=== PATIENT | female | born 1955 | race Caucasian/White ===

== ENCOUNTER → 2017-09-02 16:13 | Outpatient (CLI) | payer MEDICARE, SELFPAY ==
[2017-08-03 10:47] VITALS: BP 120/62; BMI 27.6
--- NOTE | 2017-09-02 16:18 | RAD_ITS ---
STUDY: X-RAY - CERVICAL SPINE REASON FOR EXAM: Female, 62 years old. Neck pain TECHNIQUE: 6 view(s) of the cervical spine were obtained. COMPARISON: Prior comparison studies are not available for review at this time. FINDINGS: Normal anterior atlantoaxial articulation. Normal odontoid process. There is straightening of the normal cervical lordosis. Normal vertebral bodies. There is degenerative disc disease with disc space narrowing and anterior osteophyte formation at C5-6 and C6-7, with bilateral foraminal stenosis. The soft tissue structures are unremarkable. RAD/Cerv Spine 4 or 5 Views IMPRESSION: C5-6 C6-7 degenerative disease Electronically Signed: Jeremiah Solis MD, FACR at 8:02 EST , Service support ,
== END ==
PROVIDERS: Family Provider Family Medicine; PCP Family Medicine; Visit Provider Family Medicine
DX: S16.1XXA Strain of muscle, fascia and tendon at neck level, initial encounter (principal)
CPT/HCPCS: 72050

== ENCOUNTER → 2017-09-24 11:22 | Outpatient (CLI) | payer MEDICARE, SELFPAY ==
--- NOTE | 2017-09-24 11:29 | RAD_ITS ---
STUDY: X-RAY - PELVIS AND LEFT HIP REASON FOR EXAM: Female, 62 years old. PATIENT FELL IN JUNE. PAIN IN LEFT HIP AND GROIN AREA TECHNIQUE: Radiological exam, hip, unilateral, with pelvis when performed; 2 or 3 views. COMPARISON: None. FINDINGS: There is a non-specific bowel gas pattern. Normal visualized soft tissue structures. Normal bilateral iliac wings, sacroiliac joints and visualized sacrum. Normal bilateral superior and inferior pubic rami. Normal pubic symphysis. Normal bilateral ischial tuberosities. Normal visualized femoral head. Normal acetabulum. Normal hip joint. RAD/Hip 2-3 Views with Pelvis IMPRESSION: Normal x-ray examination of the pelvis and hip. Electronically Signed: Kip Odell MD at 17:15 EST , Service support ,
== END ==
PROVIDERS: Family Provider Family Medicine; PCP Family Medicine; Visit Provider Nurse Practitioner Family
DX: M25.551 Pain in right hip (principal)
CPT/HCPCS: 73502

== ENCOUNTER → 2017-10-07 12:06 | Outpatient (CLI) | payer MEDICARE, SELFPAY ==
--- NOTE | 2017-10-07 12:09 | RAD_ITS ---
STUDY: X-RAY - RIGHT WRIST REASON FOR EXAM: Female, 62 years old. Pain following a recent fall. TECHNIQUE: 3 view(s) of the wrist were obtained. COMPARISON: None. FINDINGS: Normal visualized distal radius and ulna. Normal radiocarpal articulation. Normal distal radioulnar articulation. Normal carpal bones. Normal carpal articulations. Normal carpometacarpal articulation of the thumb. Normal second through fifth carpometacarpal articulations. Normal visualized metacarpal bones. Soft tissue swelling. RAD/Wrist min 3 Views IMPRESSION: Soft tissue swelling. Electronically Signed: Dimitri Ordonez MD at 12:35 EDT Tel [phone], Service support ,
== END ==
PROVIDERS: Family Provider Family Medicine; PCP Family Medicine; Visit Provider Family Medicine
DX: M25.531 Pain in right wrist (principal)
CPT/HCPCS: 73110

== ENCOUNTER 2017-11-18 12:00 | Outpatient (RCR) | payer MEDICARE, SELFPAY ==
--- NOTE | 2017-11-13 16:44 | HP.OTEVAL_ITS ---
Patient's Visit Information ALISHA AG is a 62 year old F, referred to Occupational Therapy by Luis Huffman, with a diagnosis of right wrist contusion. Date of Evaluation: 11/13/17 Occupational Therapist: Penny Waite, OTR/Jack, CHT - Subjective Subjective: Pt states she was roller skating- 4 weeks ago and fell-pt states she did have an x-ray and no fx was reported- dx of a deep bone brusing- pt is right handed- and states she has pain with using her right hand with BADLS and IADLS - - Pain right wrist/hand 2 Pain Intensity Range: 0, 3, 4 - ROM Wrist: right 45/50 left 55/70 - Strength Absorption And Adsorption Engineer: right 20# left 70# Lateral Pinch: right 4# left 8# Tripod Pinch: right 4# left 10# - Sensation Sensation Comments: tingling in hand/fingers from neck - Hand/Wrist Evaluation Total Score of Pain & Functional Sections: 36 - Goals Goal:: pt will demo a increase in right machine assembler for puller over stregnth to 40# or greater to increase pts ind with BADLS and IADLs by d/c Goal:: pt will demo a functional ROM of right wrist eual to left with no c/o pain at end range for pt to perform BADls and IADLS at ind. level by d/c Goal:: pt will report no pain greater than 1/10 with functional use of pts right hand with BADLs and IADLS by d/c - Rehabilitation General Assessment: pt demo a decrease in right wrist ROM and strength that limits pts ind. with BADSL and IADLS. Pt demo a need for skilled OTR/L, CHT services to rehab pt to her PLOF. Rehabilitation Potential: Good - Anticipated Interventions Anticipated Interventions: Strengthening - Visit Plan Frequency: 1-2x /Week Duration: 4 Months General Plan: OT services 1-2x week for 4 weeks- therapy will provide services to decrease pts pain and increase pts strength for a increase ind. with pts BADls and IADLS. TEXT: Thank you for the opportunity to evaluate your patient. For Medicare and Medicare HMO plans, please review the plan of care and approve it. It will need to be FAXED BACK to us at [phone] for Medicare purposes. Please let me know if there are questions or concerns regarding this plan of care. Physician Signature: Date:
--- NOTE | 2017-11-14 09:50 | HP.OTEVAL ---
Patient's Visit Information ALISHA AG is a 62 year old F, referred to Occupational Therapy by Luis Huffman, with a diagnosis of right wrist contusion. Date of Evaluation: 11/13/17 Occupational Therapist: Penny Waite, OTR/Jack, CHT - Subjective Subjective: Pt states she was roller skating- 4 weeks ago and fell-pt states she did have an x-ray and no fx was reported- dx of a deep bone brusing- pt is right handed- and states she has pain with using her right hand with BADLS and IADLS - - Pain right wrist/hand 2 Pain Intensity Range: 0, 3, 4 - ROM Wrist: right 45/50 left 55/70 - Strength Blueprint Reader: right 20# left 70# Lateral Pinch: right 4# left 8# Tripod Pinch: right 4# left 10# - Sensation Sensation Comments: tingling in hand/fingers from neck - Hand/Wrist Evaluation Total Score of Pain & Functional Sections: 36 - Goals Goal:: pt will demo a increase in right senior marketing associate stregnth to 40# or greater to increase pts ind with BADLS and IADLs by d/c Goal:: pt will demo a functional ROM of right wrist eual to left with no c/o pain at end range for pt to perform BADls and IADLS at ind. level by d/c Goal:: pt will report no pain greater than 1/10 with functional use of pts right hand with BADLs and IADLS by d/c - Rehabilitation General Assessment: pt demo a decrease in right wrist ROM and strength that limits pts ind. with BADSL and IADLS. Pt demo a need for skilled OTR/L, CHT services to rehab pt to her PLOF. Rehabilitation Potential: Good - Anticipated Interventions Anticipated Interventions: Strengthening - Visit Plan Frequency: 1-2x /Week Duration: 4 Months General Plan: OT services 1-2x week for 4 weeks- therapy will provide services to decrease pts pain and increase pts strength for a increase ind. with pts BADls and IADLS. TEXT: Thank you for the opportunity to evaluate your patient. For Medicare and Medicare HMO plans, please review the plan of care and approve it. It will need to be FAXED BACK to us at [phone] for Medicare purposes. Please let me know if there are questions or concerns regarding this plan of care. Physician Signature: Date:
--- NOTE | 2017-11-29 09:47 | HP.OTDCSUM_ITS ---
HP - OT D/C Summary It has been my pleasure to treat ALISHA AG under orders from Luis Huffman, for the diagnosis of right wrist contusion for a total of 5 visit(s). Please see the following information for a summary of their discharge status. pt has progressed with with OT and reports she is ind. with all BADLs and IADLs. pt reports very little pain and is happy with her progress. - Overall Improvement % Improvement: 95 - Objective Objective/Function: pt demo a right associate store manager of 70# this was increase from 20#. right later pinch 12# a increase from 4#. tripod pinch increase to 8# from 4#. right wrist ROM 55/65 pt demo right wrist ROM WNL and reports she is ind. with BADLs and IADLS. - Goals Patient Goals: Regain Strength, Decrease Pain, Use Hand/Wrist/Arm Normally Again Goal:: pt will demo a increase in right associate store manager stregnth to 40# or greater to increase pts ind with BADLS and IADLs by d/c Goal:: pt will demo a functional ROM of right wrist eual to left with no c/o pain at end range for pt to perform BADls and IADLS at ind. level by d/c Goal:: pt will report no pain greater than 1/10 with functional use of pts right hand with BADLs and IADLS by d/c - Plan Plan: D/C - D/C Information Discharge Comments: Pt was seen for 5 OT visits- therapy services US and PRE- pt advise on Adj. he style of skate to decrease speed- pt demo understanding- pt reports ind. with all BADLS and IADLS. pt has met functional goals and is D/ C at this time. If there are questions or concerns regarding this patient's occupational therapy , please fell free to call me at [phone]. Thank you for the referral of this patient. Sincerely, Penny Waite, OTR/L, CHT
--- OUTSIDE RECORDS SUMMARY | 2018-01-16 12:08 | XMS RPT_ITS ---
:1955 Author Organization OHIP Support Name Relationship Address Phone D Unavailable Unavailable Unavailable ESTELITA, RENEE Unavailable [address] + [place] [address] D Unavailable Unavailable Unavailable ESTELITA, RENEE Unavailable [address] + [place] [address] D Unavailable Unavailable Unavailable ESTELITA, RENEE Unavailable [address] + [place] [address] D Unavailable Unavailable Unavailable ESTELITA, RENEE Unavailable [address] + [place] [address] D Unavailable Unavailable Unavailable ESTELITA, RENEE Unavailable [address] + [place] [address] D Unavailable Unavailable Unavailable ESTELITA, RENEE Unavailable [address] + [place] [address] D Unavailable Unavailable Unavailable ESTELITA, RENEE Unavailable [address] + [place] [address] D Unavailable Unavailable Unavailable ESTELITA, RENEE Unavailable [address] + [place] [address] D Unavailable Unavailable Unavailable ESTELITA, RENEE Unavailable [address] + [place] [address] D Unavailable Unavailable Unavailable ESTELITA, RENEE Unavailable [address] + [place] [address] D Unavailable Unavailable Unavailable ESTELITA, RENEE Unavailable [address] + [place] [address] D Unavailable Unavailable Unavailable ESTELITA, RENEE Unavailable [address] + [place] [address] D Unavailable Unavailable Unavailable ESTELITA, RENEE Unavailable [address] + [place] [address] D Unavailable Unavailable Unavailable RENEE CAPONE Unavailable [address] + [place] [address] Care Team Providers Name Role Phone Malys, Mariana Attending Unavailable Malys, Mariana Primary Care Unavailable Malys, Mariana Attending Unavailable Malys, Mariana Primary Care Unavailable Derrick Anand Attending Unavailable Malys, Mariana Primary Care Unavailable Derrick Anand Attending Unavailable Malys, Mariana Primary Care Unavailable Reinaldo Gonzalez Attending Unavailable Malys, Mariana Referring Unavailable Malys, Mariana Primary Care Unavailable Juan Manuel Hassan Attending Unavailable Malys, Mariana Referring Unavailable Malys, Mariana Primary Care Unavailable Malys, Mariana Attending Unavailable Malys, Mariana Primary Care Unavailable Malys, Mariana Referring Unavailable Malys, Mariana Attending Unavailable Malys, Mariana Referring Unavailable Malys, Mariana Primary Care Unavailable Prebish, Mariana SAP BW DEVELOPER-C Attending Unavailable Prebish, Mariana SAP BW DEVELOPER-C Referring Unavailable Malys, Mariana Primary Care Unavailable Derrick Anand Attending Unavailable Derrick Anand Referring Unavailable Malys, Mariana Primary Care Unavailable Reinaldo Gonzalez Attending Unavailable Malys, Mariana Referring Unavailable Malys, Mariana Primary Care Unavailable Glory Deal Attending Unavailable Glory Deal Referring Unavailable Malys, Mariana Primary Care Unavailable Prebish, Mariana SAP BW DEVELOPER-C Attending Unavailable Prebish, Mariana SAP BW DEVELOPER-C Referring Unavailable Malys, Mariana Primary Care Unavailable Luis Huffman Attending Unavailable Luis Huffman Referring Unavailable Malys, Mariana Primary Care Unavailable PROBLEMS PROBLEMS DATE TYPE CONDITION / CODE ATTENDING STATUS SOURCE 12/13/2017 Unknown M25.551 - Pain in Prebish, Mariana Active [facility] right hip / [facility] M25.551(ICD-10) Hospital Repository 12/13/2017 Unknown M25.552 - Pain in Prebish, Mariana Active [facility] left hip / [employer] [facility]EL[facility] M25.552(ICD-10) Hospital Repository 12/13/2017 Unknown M16.11 - Unilateral Prebish, Mariana Active [facility] primary [employer] BW DEVELOPER[facility]C Community osteoarthritis, Hospital right hip / Repository M16.11(ICD-10) 12/13/2017 Unknown M16.12 - Unilateral Prebish, Mariana Active [facility] primary [employer] BW DEVELOPER-C Community osteoarthritis, left Hospital hip / M16.12(ICD-10) Repository 11/19/2017 Unknown N95.0 - MiedelKatharineh Active [facility] Postmenopausal Community bleeding / Hospital N95.0(ICD-10) Repository 09/02/2017 Unknown S16.1XXA - Strain of Mariana James Active [facility] muscle, fascia and Community tendon at neck Hospital level, initial Repository encounter / S16.1XXA(ICD-10) 07/31/2017 Unknown R42 - Dizziness and Reinaldo Gonzalez Active [facility] giddiness / Community R42(ICD-10) Hospital Repository 07/31/2017 Unknown H81.10 - Benign Reinaldo Gonzalez Active [facility] paroxysmal vertigo, Community unspecified ear / Hospital H81.10(ICD-10) Repository 05/31/2017 Unknown OTH DISRD OF BONE Cheng, Derrick Active [facility] DENSITY AND Community STRUCTURE, MULTIPLE Hospital SITES / Repository M85.89(ICD-10) 05/28/2017 Unknown PAIN IN LEFT ChengDerrick Active [facility] FINGER(S) / Community M79.645(ICD-10) Hospital Repository 05/28/2017 Unknown ENCNTR SCREEN Mariana James Active [facility] MAMMOGRAM FOR [facility] MALIGNANT NEOPLASM Hospital BREAST / Repository Z12.31(ICD-10) 05/28/2017 Unknown DYSURIA / MalysMariana Active [facility] R30.0(ICD-10) [facility] Repository PROCEDURES PROCEDURES No Procedure Records FoundRESULTS RESULTS LOWER EXT JOINT ONLY Observed: 12/13/2017 Status: F Source: [place] (ROUTINE) 9:40 AM [facility]ITAL[facility] [address] [place], [place] [address]Livlj Ext Joint Only (Routine)MR#: [id number] Acct: [id number]: ALISHA AG Rep #: [id number]: 1955 F 62 From: Salvatore Neal MDPCP: Mariana James DO Status: REG CLIStudy: Lower Ext Joint Only (Routine) Date of Exam: 12/13/17Exam# [id number] Ordering Dr: Mariana Chau SAP BW DEVELOPER-CSTUDY: MRI LEFT HIPREASON FOR EXAM: Hip, groin and buttock pain for several months, nospecific injury.TECHNIQUE: Standardized fat and water weighted pulse sequences wereobtained in all 3 orthogonal planes.COMPARISON: Radiographs 09/24/2017. FINDINGS:There is mild chondral thinning of the anterior superior left hip(proton-density sagittal image 10). Normal acetabulum. Normal labrum.Normal femoral head. Normal femoral neck and intratrochanteric region.There is mild persistence of red marrow in the left proximal femoraldiaphysis (inversion recovery coronal images 16, 17).Normal gluteus minimus, medius and iliopsoas tendons and distal insertions.There is mild left iliopsoas bursitis (T2 axial images 14, 15; inversionrecovery coronal image 21).Normal superior and inferior pubic rami. There are mild degenerativechanges of the pubic symphysis. Normal ischial tuberosity. Normal originof the hamstring tendons.Normal visualized iliac wing, sacroiliac joint, and sacral ala.Normal visualized soft tissue structures of the pelvis. ORDER #: [id number] MRI/Lower Ext Joint Only (Routine)IMPRESSION:Mild left hip arthrosis.Mild left iliopsoas bursitis.Electronically Signed:Salvatore Neal MD at 13:04 EDTTel , Service support , HE: Mariana Chau; Mariana James DO Cnc Programmer:Signed LOWER EXT JOINT ONLY Observed: 12/13/2017 Status: F Source: [place] (ROUTINE) 9:39 AM [facility] REPOSITORY [facility] [address] [place], [place] [address]Ealqr Ext Joint Only (Routine)MR#: [id number] Acct: [id number]: ALISHA AG Rep #: [id number]: 1955 F 62 From: Salvatore Neal MDPCP: Mariana James DO Status: REG CLIStudy: Lower Ext Joint Only (Routine) Date of Exam: 12/13/17Exam# [id number] Ordering Dr: Mariana Chau SAP BW DEVELOPER-CSTUDY: MRI RIGHT HIPREASON FOR EXAM: Right hip pain for several years.TECHNIQUE: Standardized fat and water weighted pulse sequences wereobtained in all 3 orthogonal planes.COMPARISON: Radiographs 09/24/2017. FINDINGS:There is mild chondral thinning of the right hip joint (proton-densitysagittal image 9). Normal acetabulum. Normal labrum. Normal femoral head.Normal femoral neck and intratrochanteric region.Normal gluteus minimus, medius and iliopsoas tendons and distal insertions.There is no trochanteric, iliopsoas or iliopectineal bursitis.Normal superior and inferior pubic rami. There are degenerative changes ofthe pubic symphysis. Normal ischial tuberosity. Normal origin of thehamstring tendons.Normal visualized iliac wing , sacroiliac joint, and sacral ala.Normal visualized soft tissue structures of the pelvis. ORDER #: [id number] MRI/Lower Ext Joint Only (Routine)IMPRESSION:Mild right hip arthrosis.Electronically Signed:Salvatore Neal MD at 13:03 EDTTel , Service support , DF: Mariana Chau; Mariana James DO Cnc Programmer:Signed OT D/C SUMMARY Observed: 11/29/2017 Status: F Source: [place] 9:49 AM [facility] RE[facility]ITORY [facility]Occup[facility] [facility] [address] [place] [address] [phone] [phone] FaxREHABILITATION SERVICESDISCHARGE SUMMARYMR#: [id number] Acct : [id number]: ALISHA AG Rep #: [id number]: 1955 62 From: Penny Waite OTR/L, CHTReferring : Luis Huffman DO Status: PRE RCREval Date: Discharge Date:HP - OT D/C SummaryIt has been my pleasure to treat ALISHA AG under orders from Luis Huffman, for thediagnosis of right wrist contusion for a total of 5 visit(s).Please see the following information for a summary of their discharge status.pt has progressed with with OT and reports she is ind. with all BADLs and IADLs. pt reportsvery little pain and is happy with her progress.- Overall Improvement% Improvement: 95- ObjectiveObjective/Function: pt demo a right basting puller of 70# this was increase from 20#. right later pinch12# a increase from 4#. tripod pinch increase to 8# from 4#. right wrist ROM 55/65 pt demoright wrist ROM WNL and reports she is ind. with BADLs and IADLS.- GoalsPatient Goals: Regain Strength, Decrease Pain, Use Hand/Wrist/Arm Normally AgainGoal:: pt will demo a increase in right basting puller stregnth to 40# or greater to increase pts indwith BADLS and IADLs by d/cGoal:: pt will demo a functional ROM of right wrist eual to left with no c/ o pain at end rangefor pt to perform BADls and IADLS at ind. level by d/cGoal:: pt will report no pain greater than 1/10 with functional use of pts right hand withBADLs and IADLS by d/c- PlanPlan: D/C- D/C InformationDischarge Comments: Pt was seen for 5 OT visits- therapy services US and PRE- pt advise on Adj.he style of skate to decrease speed- pt demo understanding- pt reports ind. with all BADLS andIADLS. pt has met functional goals and is D/C at this time.If there are questions or concerns regarding this patient's occupational therapy, please fellfree to call me at . Thank you for the referral of this patient.Sincerely,Penny Waite, OTR/L, CHT<Electronically signed by Penny Waite OTR/L, CHT> 11/29/17 0949CC : Mariana James DO; Luis Huffman DO DT: 11/29/17MKSigned TRANSVAGINAL Observed: 11/19/2017 Status: F Source: [place] NON- 8:19 AM [facility] REPOSITORY [facility]IPIm[facility] [address] [place] [address]Ypqchuwuvdgm Non-MR#: [id number] Acct: [id number]: ALISHA AG Rep #: [id number]: 1955 F 62 From: Dean Chaudhry MDPCP: Mariana James DO Status: REG CLIStudy: Transvaginal Non- Date of Exam: 11/19/17Exam# [id number] Ordering Dr: Glory Deal MDSTUDY: ULTRASOUND TRANSVAGINALCLINICAL: Female, 62 years old. Postmenopausal bleeding, intermittent [id number].TECHNIQUE: Transabdominal and transvaginal.COMPARISON: None. FINDINGS: Normal uterine size measuring 6.0 x 3.6 x 2.2 cm. There are no myometrialmasses.Normal endometrial thickness measuring 3.0 mm. There are no endometrialmasses, and there is no fluid in the endometrial cavity.Normal uterine cervix.Normal right ovary, measuring 1.1 x 0.9 x 0.7 cm. There are multiplefollicles without a dominant cyst.Normal left ovary, measuring 1.8 x 1.0 x 0.8 cm. There are multiplefollicles without a dominant cyst.There is no free fluid in the pelvis.Polycystic ovary disease: No. ORDER #: [id number] US/ Transvaginal Non-IMPRESSION:Unremarkable exam.Electronically Signed:Dean Chaudhry MD at 9:55 EDTT , Service support , CX: Glory Deal MD; Mariana James DO Cnc Programmer:Signed PELVIC (NON ) Observed: 11/19/2017 Status: F Source: [place] 8:19 AM [facility] REPOSITORY [facility] [address] [place] [address]Cniubx (Non )MR#: [id number] Acct: [id number]: ALISHA AG Rep #: [id number]: 1955 F 62 From: Dean Chaudhry MDPCP: Mariana James DO Status: REG CLIStudy: Pelvic (Non ) Date of Exam: 11/19/17Exam# [id number] Ordering Dr: Glory Deal MDSTUDY: ULTRASOUND TRANSVAGINALCLINICAL: Female, 62 years old. Postmenopausal bleeding, intermittent x3qhgdlc.TECHNIQUE: Transabdominal and transvaginal.COMPARISON: None. FINDINGS: Normal uterine size measuring 6.0 x 3.6 x 2.2 cm. There are no myometrialmasses.Normal endometrial thickness measuring 3.0 mm. There are no endometrialmasses, and there is no fluid in the endometrial cavity.Normal uterine cervix.Normal right ovary, measuring 1.1 x 0.9 x 0.7 cm. There are multiplefollicles without a dominant cyst.Normal left ovary, measuring 1.8 x 1.0 x 0.8 cm. There are multiplefollicles without a dominant cyst.There is no free fluid in the pelvis.Polycystic ovary disease: No. ORDER #: [id number] US/Pelvic ( Non )IMPRESSION:Unremarkable exam.Electronically Signed:Dean Chaudhry MD at 9:55 [facility] , Service support , EU: Glory Deal MD; Mariana James DO Cnc Programmer:Signed OT GENERAL EVALUATION Observed: 11/14/2017 Status: F Source: [place] 9:51 AM [facility] REPOSITORY [facility] [address], [place] [phone] [phone] FaxREHABILITATION SERVICESINITIAL EVALUATIONMR#: [id number] Acct: [id number]: ALISHA AG Rep #: [id number]: 1955 62 From: Penny Waite OTR/L, CHTReferring Dr.: Luis Huffman DO Status: PRE RCRInsurance: [facility]IN NETWORK Eval Date:SELF PAY INSURANCEPatient's Visit InformationMERSHIRIN AG is a 62 year old F, referred to Occupational Therapy by Luis Huffman, with adiagnosis of right wrist contusion.Date of Evaluation: 11/13/17Occupational Therapist: Penny Waite, DONNAR/L, CHT- SubjectiveSubjective: Pt states she was roller skating- 4 weeks ago and fell-pt states she did have anx-ray and no fx was reported- dx of a deep bone brusing- pt is right handed- and states she haspain with using her right hand with BADLS and IADLS - - Pain right wrist/lzjf8Pgyd Intensity Range: 0, 3, 4- ROMWrist: right 45/50 left 55/70- StrengthGrip: right 20# left 70#Lateral Pinch: right 4# left 8#Tripod Pinch: right 4# left 10#- SensationSensation Comments: tingling in hand/fingers from neck- Hand/Wrist EvaluationTotal Score of Pain AND Functional Sections: 36- GoalsGoal:: pt will demo a increase in right basting puller stregnth to 40# or greater to increase pts indwith BADLS and IADLs by d/cGoal:: pt will demo a functional ROM of right wrist eual to left with no c/o pain at end rangefor pt to perform BADls and IADLS at ind. level by d/cGoal:: pt will report no pain greater than 1/10 with functional use of pts right hand withBADLs and IADLS by d/c- RehabilitationGeneral Assessment: pt demo a decrease in right wrist ROM and strength that limits pts ind.with BADSL and IADLS. Pt demo a need for skilled OTR/L, CHT services to rehab pt to her PLOF.Rehabilitation Potential: Good- Anticipated InterventionsAnticipated Interventions: Strengthening- Visit PlanFrequency: 1- 2x /WeekDuration: 4 MonthsGeneral Plan: OT services 1-2x week for 4 weeks- therapy will provide services to decrease ptspain and increase pts strength for a increase ind. with pts BADls and IADLS.TEXT:Thank you for the opportunity to evaluate your patient.For Medicare and Medicare HMO plans, please review the plan of care and approve it.It will need to be FAXED BACK to us at [phone] for Medicare purposes.Please let me know if there are questions or concerns regarding this plan of care.Physician Signature: Date: &lt ;Electronically signed by Penny Waite OTR/NANNETTE Santiago> 11/14/17 0951CC: Mariana James DO; Luis Huffman DO DT: 11/14/17MKSignedFor Medicare only, by signing this I certify the plan of care. Physicians Signature Date OT GENERAL EVALUATION Observed: 11/14/2017 Status: F Source: [place] 9:34 AM [facility] REPOSITORY [facility] [address] [facility]. [address] [place] [address] [phone] [phone] FaxREHABILITATION SERVICESINITIAL EVALUATIONMR#: [id number] Acct: [id number]: ALISHA AG Rep #: [id number]: 1955 62 From: Penny Waite OTR/L, CHTReferring Dr.: Luis Huffman DO Status: PRE RCRInsurance: [facility] *IN NETWORK Eval Date:SELF PAY INSURANCEPatient's Visit InformationALISHA AG is a 62 year old F, referred to Occupational Therapy by Luis Huffman, with adiagnosis of right wrist contusion.Date of Evaluation: 11/13/17Occupational Therapist: Penny Waite, OTR/L, CHT- SubjectiveSubjective: Pt states she was roller skating- 4 weeks ago and fell-pt states she did have anx-ray and no fx was reported- dx of a deep bone brusing- pt is right handed- and states she haspain with using her right hand with BADLS and IADLS - - Pain right wrist/bddu6Atpx Intensity Range: 0, 3, 4- ROMWrist: right 45/50 left 55/70- StrengthGrip: right 20# left 70#Lateral Pinch: right 4# left 8#Tripod Pinch: right 4# left 10#- SensationSensation Comments: tingling in hand/fingers from neck- Hand/Wrist EvaluationTotal Score of Pain AND Functional Sections: 36- GoalsGoal:: pt will demo a increase in right basting puller stregnth to 40# or greater to increase pts indwith BADLS and IADLs by d/cGoal:: pt will demo a functional ROM of right wrist eual to left with no c/o pain at end rangefor pt to perform BADls and IADLS at ind. level by d/cGoal:: pt will report no pain greater than 1/10 with functional use of pts right hand withBADLs and IADLS by d/c- RehabilitationGeneral Assessment: pt demo a decrease in right wrist ROM and strength that limits pts ind.with BADSL and IADLS. Pt demo a need for skilled OTR/L, CHT services to rehab pt to her PLOF.Rehabilitation Potential: Good- Anticipated InterventionsAnticipated Interventions: Strengthening- Visit PlanFrequency: 1- 2x /WeekDuration: 4 MonthsGeneral Plan: OT services 1-2x week for 4 weeks- therapy will provide services to decrease ptspain and increase pts strength for a increase ind. with pts BADls and IADLS.TEXT:Thank you for the opportunity to evaluate your patient.For Medicare and Medicare HMO plans, please review the plan of care and approve it.It will need to be FAXED BACK to us at [phone] for Medicare purposes.Please let me know if there are questions or concerns regarding this plan of care.Physician Signature: Date: &lt ;Electronically signed by Penny GARCÍA/NANNETTE Santiago> 11/14/17 0934CC: Mariana James DO; Luis Huffman DO DT: 11/13/17MKSignedFor Medicare only, by signing this I certify the plan of care. Physicians Signature Date URGENT CARE VISIT Observed: 10/30/2017 Status: F Source: [place] REPORT 1:09 PM [facility] REPOSITORY Now [address] [phone] VISITDate of Service: 10/30/17MR#: [id number] Acct: [id number]: ALISHA AG Rep #: [id number]: 1955 Provider: Reinaldo Tyson/Sex: 62/F [facility] [place].NOWStatus: Signed with AddendaADDENDUM by Reinaldo XIONG on 10/30/17 at 1308Addendum entered and electronically signed by TYRESE Klein 10/30/17 13:08:Patient request, dextromethorphan was discontinued and was prescribed benzonatate to take asneeded for cough.HPIDetails: ALISHA AG, is a 62 F who presents to the office today for10/30/17 1309 <Electronically signed by Reinaldo XIONG>Date Reinaldo Gonzalez PAcc: *SignedIntakeVital Signs10/30/17 Height 5 ft 1.5 inIntakeVisit Reasons: SINUS INFECTIONChief Complaint: Sinus drainage, coughIs patient in pain?: NoAllergieschocolate flavor Allergy (Verified 10/30/17 12:42)Unknownamoxicillin [Amoxicillin] Adverse Reaction (Verified 10/30/17 12:42)Otherbupropion HCl [ From Wellbutrin] Adverse Reaction (Verified 10/30/17 12:42)Othercosmetics Allergy ( Uncoded 10/30/17 12:42)Unknownnuts Allergy (Uncoded 10/30/17 12:42)UnknownMedicationsLansoprazole [Prevacid] 30 mg PO DAILY 02/06/14 [ History Confirmed 10/30/17]Montelukast [Singulair] 10 mg PO DAILY 02/06/14 [History Confirmed 10/30/17]Sumatriptan Succinate [Imitrex] 100 mg PO .X1 PRN 02/06/14 [History Confirmed 10/30/17]Venlafaxine HCl [Effexor] 75 mg PO BID 02/06/14 [History Confirmed 10/30/17]acetaminophen 325 mg tablet 500 mg PO Q6H PRN 07/31/17 [History Confirmed 10/30/17]ascorbic acid (vitamin C) 1,000 mg tablet 1 g PO Q6H 07/31/17 [History Confirmed 10/30/17]cholecalciferol (vitamin D3) 1,000 unit capsule 1,000 unit PO ONCE 07/31/17 [History Haexsdbnu57/04/18]docusate sodium 50 mg capsule 50 mg PO QDAY 07/31/17 [History Confirmed 10/30/17]ferrous sulfate 325 mg (65 mg iron) tablet 325 mg PO TID tab 07/31/17 [History Sgmczyfgj07/04/18]garlic tablet 300 mg PO QDAY 07/31/17 [History Confirmed 10/30/17]ibuprofen 200 mg tablet 200 mg PO ONCE 10/13 [History Confirmed 10/30/17]lutein extract 15 mg-zeaxanthin extract 0.7 mg capsule cap PO 07/31/17 [History Yzqwjauhc60/04/18]meclizine 25 mg tablet 25 mg PO BID PRN #14 tab 07/31/17 [Rx Confirmed 10/30/17]vitamin A 8,000 unit capsule 8,000 unit PO QDAY 07/31/17 [History Confirmed 10/30/17]vitamin B complex tablet 1 tab PO QDAY 07/31/17 [History Confirmed 10/30/17]vitamin E 200 unit capsule 200 unit PO QDAY 07/31/17 [History Confirmed 10/30/17]zinc acetate 25 mg (zinc) capsule 25 mg PO QDAY 07/31/17 [History Confirmed 10/30/17]dextromethorphan polistirex ER 30 mg/5 mL oral susp ext.release 12hr 60 mg PO Q12H PRN #89 ml10/30/17 [Rx Confirmed 10/30/17]PFSHMedical History Arthritis (Acute)Asthma (Acute)Back pain (Acute)Difficulty balancing (Acute)Hay fever (Acute)Incontinence (Acute)Knee pain (Acute)child (Acute)Surgical HistoryHx of knee surgery (Acute)S/P breast lumpectomy (Acute) Social HistorySmoking Status: Never smokeralcohol intake: neverHPIHPIChief Complaint : Sinus drainage, coughDetails: ALISHA AG, is a 62 F who presents to the office today for initial evaluation 5day history of postnasal drip and cough. She notes no complaints of fever, chills, sweats,rash, chest pain/shortness of breath, facial pressure. She is a non-smoker. She notes noother members in her household with similar signs or symptoms. She notes no other associatedsymptoms, no other alleviating or aggravating factors.ROSConstConstitutional: No excessive sweating, abnormal sleep pattern, chills, fever(s), night sweatsor body acheEyesEyes: No change in visionENTENT: Positive for post nasal drip and sinus pressure;no ear pain, ear discharge, ear pressure, hearing loss, sinus pain, nasal congestion or sorethroatRespRespiratory: Positive for cough Cough: Yes non-productive;no chest congestionCardioCardiology: No excessive sweating, chest pain at rest, chest pain with exertion, shortness ofbreath, dyspnea on exertion, irregular heart rhythm, generalized swelling or leg pain withexertionGastroGI: No abdominal pain, change in stool character or change in bowel habitsMuscMusculoskeletal: No joint pain, back pain, limited range of motion, tingling or numbnessSkinSkin: No rashNeuroNeurology: No tingling or numbnessPsychPsychiatric: No abnormal sleep patternEndoEndocrine : No excessive sweating, change in body appearance, cold intolerance or heatintoleranceAller/ImmAllergy/Immunologic: No food intoleranceHema/LympHematologic/Lymphatic: No easy bruisingExamConstGeneral: cooperative, healthy appearing, no acute distress, comfortableNutritional Appearance: average body habitusOrientation: alert, awake, oriented b2RXWBVZiyv: normal to inspectionEars: hearing grossly normal bilaterally, external ears normal, TM's normal bilaterally, EAC'snormalNose: external nose normal, nares normal, septum normal , no nasal dischargeFace and sinus: normal facial exam, sinuses nontender, face symmetricMouth: oral mucosae normal, lip normal, tongue normal, oropharynx normalTeeth and gingiva: dentition normal, gingiva normalThroat: uvula midline, tonsils normal, posterior oropharynx normal, no postnasal drainageEyesGeneral: appearance normal, both eyes and all related structuresNeckNeck: normal visual inspection, full ROM, no lymphadenopathy, no meningeal signs, suppleNeck mass: NoThyroid: thyroid normalLymphatic: no lymphadenopathy notedChestChest palpation AND inspection: normal inspection of the chestRespEffort AND Inspection: normal respiratory effort, able to speak in complete sentences, symmetricchest movement, no cough (No unsolicited cough during today's exam)Auscultation: Bilateral: Clear to AuscultationCardioPalpation: normal PMIRate: regular rateRhythm: regular rhythmHeart Sounds: S1 normal, S2 normal, no gallops, no murmurs, no rubsPulses: radial pulses presentGIInspection: normal to inspectionPalpation: softSkinGeneral: no rashes or lesions notedNeuroGeneral: alert, awake, oriented x3, gait normalCognition: normal cognitionSpeech: speech normalGait: normal gaitMotor: muscle tone normal throughoutSensory Exam: no sensory deficits notedExtremGeneral: normal to inspectionPsychAppearance: grossly normalMental Status: mental status grossly normalMood: congruent moodAffect: normal affectSpeech and Movement: speech and movement normalAttitude: cooperativeThought Process: normalThought Content: normalJudgment: judgment goodAssessment AND PlanProblems1. Bronchitis J402. Sinusitis J32.9PlanDextromethorphan polistirex ER as prescribed today.Clear fluids, rest, Tylenol/ Claritin as needed for symptomatic relief.Follow-up with PCP in 5-7 days should symptoms not improve, sooner should symptoms worsen orany other concerns develop.Patient states acknowledging understanding all the above.This note was generated with Moment[employer] dictation software. It may contain incorrect words, spelling, and punctuation that were not noted in checking the note before signing.MedicationsNew:CodingLevel of Care CodeOff vis,est,level 3DiagnosesBronchitis M53Fsclvfolv J32.904/11/13 1257 <Electronically signed by Reinaldo Gonzalez PA>Date Reinaldo Gonzalez PACositsehootsooi medical center ([facility] Signature: Date (if applicable)CC: PT D/C SUMMARY (2) Observed: 10/11/2017 Status: F Source: [place] 11:01 AM [facility] [place] [facility] [id number] [facility]. [address] [place] [address] [phone] [phone] FaxREHABILITATION SERVICESDISCHARGE SUMMARYMR#: [id number] Acct : [id number]: ALISHA AG Rep #: [id number]: 1955 62 From: Monserrat David PT, CertZheng ADAMSTReferring : Mariana James DO Status: REG RCRInsurance: MYCARE CRSC *IN NETWORKSELF PAY INSURANCEHP - PT D/C Summary (2)It has been my pleasure to treat ALISHA AG under orders from Mariana James DO, LMALYSfor the diagnosis of strain of muscle in neck, and R shoulder pain for a total of 11 visit(s) .Discharge Date:Please see the following information for a summary of their discharge status.- SubjectiveSubjective: SEE PRIMARY CHART- ObjectiveObjective/Function/Assessment : SEE PRIMARY CHART- GoalsPatient Goals: Improve Mobility, Walk Normal, Improve ROMGoal 1:: Pt. to be I with HEP.Goal Progress: Goal MetGoal 2:: Pt. to have increased cervical ROM by 25% without increase in symptoms.Goal Progress: Goal MetGoal 3:: Pt. to have no pain with sleeping allowing for increased quality of life.Goal Progress: Goal MetGoal 4:: Pt. to have 0-1/10 pain with all ADLs and recreational activities.Goal Progress: Not ProgressingGoal 5:: Pt. to demonstrate proper posture throughout PT sessions demonstrating improvedpostural awareness.Goal Progress: Progressing- PlanPlan: D/C- D/C InformationIf there are questions or concerns regarding this patient's physical therapy, please feel freeto call me at [phone]. Thank you for the referral of this patient.Sincerely,Monserrat David<Electronically signed by Monserrat David PT, Cert. MDT> 10/11/17 1101CC: Mariana James DO DT : 10/11/17JACSigned WRIST MIN 3 VIEWS Observed: 10/07/2017 Status: F Source: [place] 12:10 PM [facility] REPOSITORY [facility] [id number] [place], [place] [address]Rwwkf min 3 ViewsMR#: [id number] Acct: [id number]: ALISHA AG Rep #: [id number]: 1955 F 62 From: Dimitri Ordonez MDPCP: Mariana James DO Status: REG CLIStudy: Wrist min 3 Views Date of Exam: 10/07/17Exam# [id number] Ordering Dr: Derrick Anand DOSTUDY: X-RAY - RIGHT WRISTREASON FOR EXAM: Female, 62 years old. Pain following a recent fall.TECHNIQUE: 3 view(s) of the wrist were obtained.COMPARISON: None. FINDINGS:Normal visualized distal radius and ulna. Normal radiocarpal articulation.Normal distal radioulnar articulation. Normal carpal bones. Normalcarpal articulations.Normal carpometacarpal articulation of the thumb. Normal second throughfifth carpometacarpal articulations.Normal visualized metacarpal bones.Soft tissue swelling. ORDER #: [id number] RAD/Wrist min 3 ViewsIMPRESSION:Soft tissue swelling.Electronically Signed:Dimitri Ordonez MD at 12:35 [facility] [phone], Service support , DH: Mariana James DO; Derrick Anand DO Cnc Programmer:Signed HIP 2-3 VIEWS WITH Observed: 09/24/2017 Status: F Source: [place] PELVIS 11:28 AM [facility] RE[facility]ITORY [facility] [id number] [place] [address]Pyj 2-3 Views with PelvisMR#: [id number] Acct: [id number]: ALISHA AG Rep #: [id number]: 1955 F 62 From: Kip Odell MDPCP: Mariana James DO Status: REG CLIStudy: Hip 2-3 Views with Pelvis Date of Exam: 09/24/17Exam# [id number] Ordering Dr: Mariana Chau SAP BW DEVELOPER-CSTUDY: X-RAY - PELVIS AND LEFT HIPREASON FOR EXAM: Female , 62 years old. PATIENT FELL IN JUNE. PAININ LEFT HIP AND GROIN AREATECHNIQUE: Radiological exam, hip, unilateral, with pelvis whenperformed; 2 or 3 views.COMPARISON: None. FINDINGS:There is a non-specific bowel gas pattern. Normal visualized soft tissuestructures.Normal bilateral iliac wings, sacroiliac joints and visualized sacrum.Normal bilateral superior and inferior pubic rami. Normal pubic symphysis.Normal bilateral ischial tuberosities.Normal visualized femoral head. Normal acetabulum. Normal hip joint. ORDER #: [id number] RAD/Hip 2-3 Views with PelvisIMPRESSION:Normal x-ray examination of the pelvis and hip.Electronically Signed:iKp Odell MD at 17:15 ESTTel , Service support , BP: Mariana Chau; Mariana James DO Cnc Programmer:Signed INITIAL EVALUATION (2) Observed: 09/13/2017 Status: F Source: [place] - PT 8:54 AM [facility] REPOSITORY [facility] [id number] [facility]. [address], [place] [phone] [phone] FaxREHABILITATION SERVICESINITIAL EVALUATIONMR#: [id number] Acct: [id number]: ALISHA AG Rep #: [id number]: 1955 62 From: Arcadio Weems DPTReferring : Mariana James DO Status: REG RCRInsurance: [employer] CRSC *IN NETWORKSELF PAY INSURANCEPatient's Visit InformationMERSHIRIN AG is a 62 year old F referred to Physical Therapy by DO ALBERT Shookwith a diagnosis of strain of muscle in neck, and R shoulder pain.Date of Evaluation: 09/10/17Physical Therapist: Arcadio Weems- Visit PlanFrequency: 2x /WeekDuration: 4 WeeksPlan: Start with cervical distractions, R UT and R levator scapulea stretching (light), DN tobilateral UT/levator scap/ cervical erector spinea. Initiate gental chin tucks and cervicalretraction in supine once able to complete pain free.- SubjectiveSubjective: Pt. is here today for her initial evaluation with diagnosis of strain of muscle inneck, and R shoulder pain. Pt. reports having increased pain for 2 months for unknown cause.She reports pain is greatest in her R side of her neck and shoulder, but does extend down herarm. Pt. reports having numbness in her R fingers, but unable to tell which ones. Pt. reportshavign difficulty sleeping, has to sleep on right, normally a L sided sleeper. She reports Rsided pain as a 1/10 currently, but does get upto a 4/10 at times. Pt. did have a recent neckXray showing DDD at C5/C6 and C6/C7. Pt. reports lifting causes pain, looking up and downcauses pain and rectraction causes pain, driving causes pain and has difficuly sleeping.Decreases pain: rest and ice. Pt. reports no LUE pain. Pt. reports no basting puller weakness ordropping objects. Pt. is hopeful to decrease symptoms in order to sleep without pain and getback to [employer] skating without issues.- Pain R side of cervical spineIntensity: 1Pain Intensity Range: 0, 4- ObjectiveObjective: POSTURE: Pt. has FH positioning, rounded shoulders. Pt. is able to correct, but hasincreased pain with cervical retraction. Pt. has normal shoulder heights bilaterally. Mildincrease in thoracic kyphosis. PALPATION: Pt. has increased tenderness at bilateral UT,bilateral levator scapulea, bilateral erector spine. Pt. has no pain at clavicles, or ACjoints, and no pain at suboccipitals. Pt. has hypomobility noted at C5-T3 with spring testingsand well as pain at C5-T1. No radidating of symptoms. NEUROLOGICAL: Pt. has normal sensationto light and sharp touch of bilateral UEs. Pt. +2 bilateral patellar and achilles DTRbilaterally. Pt. has no + upper limb testing. ROM: CERVICAL SPINE- flexion - min loss increaseNE, ext mod loss increase nW, retraction mod loss increase NW, protraction NE, rotation min/nilloss NE bilaterally, SB min loss increase NW bilat. Pt. has full shoulder ROM bilaterallywitout increase in symptoms. MMT- RUE- wrist 5/5 throughout; elbow- 5/5 throughout; shoulder5-/5 throughotu; basting puller strength 83#, 80#, 81#. LUE- wrist/elbow 5/5 throughout; shoulder- 5-/5throughout; basting puller strength- 75#, 71#, 73#.- Special TestsC/S Radiculapathy - Left Upper limb tension test: NegativeC/S Radiculapathy - Right Upper limb tension test: NegativeC/S Radiculapathy - Left Spurlings: NegativeC/S Radiculapathy - Right Spurlings: PositiveC/S Radiculapathy - Left Cervical distraction: NegativeC/S Radiculapathy - Right Cervical distraction: NegativeC/S Radiculapathy - Left Relief test: NegativeC/S Radiculapathy - Right Relief test: PositiveSharp Nhi: NegativeVertebral Artery Test: NegativeAlar Ligament Test: NegativeProtrusion - Mechanical Response: No effectProtrusion - Symptoms During Testing: No effectProtrusion - Symptoms After Testing: No effectRetraction - Mechanical Response: No effectRetraction - Symptoms During Testing: IncreasesRetraction - Symptoms After Testing: No worseRetraction-Extension - Mechanical Response: No effectRetraction-Extension - Symptoms During Testing: IncreasesRetraction-Extension - Symptoms After Testing : No worseSidebend Right - Mechanical Response: No effectSidebend Right - Symptoms During Testing: No effectSidebend Right - Symptoms After Testing: No effectSidebend Left - Mechanical Response: No effectSidebend Left - Symptoms During Testing: No effectSidebend Left - Symptoms After Testing: BetterRotation Right - Mechanical Response: No effectRotation Right - Symptoms During Testing: No effectRotation Right - Symptoms After Testing: No effectRotation Left - Mechanical Response: No effectRotation Left - Symptoms During Testing: No effectRotation Left - Symptoms After Testing: No effectFlexion - Mechanical Response: No effectFlexion - Symptoms During Testing: IncreasesFlexion - Symptoms After Testing: No worse- GoalsGoal 1:: Pt. to be I with HEP.Goal Time Frame: 4-6 WeeksGoal 2:: Pt. to have increased cervical ROM by 25% without increase in symptoms.Goal Time Frame: 4-6 WeeksGoal 3:: Pt. to have no pain with sleeping allowing for increased quality of life.Goal Time Frame: 4-6 WeeksGoal 4:: Pt. to have 0-1/10 pain with all ADLs and recreational activities.Goal Time Frame: 4-6 WeeksGoal 5:: Pt. to demonstrate proper posture throughout PT sessions demonstrating improvedpostural awareness.Goal Time Frame : 4-6 Weeks- Rehabilitation PotentialPhysical Therapy Diagnosis: Pt. has signs and symptoms consistent with neck pain radiating intoher RUE. SHe also has tight musculature of her R cervical spine and shoulder. She would benefitfrom PT to increase cervical ROM, decrease symptoms, improve posture and improve bodymechanics.Rehabilitation Potential: Good- Anticipated InterventionsPatient/Client Instruction: Educate patient on: Condition, Plan of Care, Risk Factors,Benefits of Fitness ProgramFor the Purpose of:: To reduce risk of recurrence, To improve safety, To improve health andfunction, To foster healthy habits, To improve decision making, To facilitate caregiverknowledge, To improve self management, To prevent re-injury, To improve ability to performtasks related to life management, To improve tolerance to ADL'sTherapeutic Exercise to Include: Strength training, Power training, Postural training,Flexibilty training, Passive ROM, Active ROM, Lucretia Exercises, ScapularStrength/StabilizationFor the Purpose of:: To decrease pain, To increase ROM, To improve nutrient delivery to tissue,To increase oxygenation perfusion, To improve muscle performance and motor function, To improveability to perform ADL's, To increase tolerance to activity/condition/position, To improvehealth of tissue, To decrease soft tissue restriction, To increase flexibility/ROMManual Therapy Techniques to Include: Mobilization, Passive ROM, Functional dry needling, Softtissue mobilizationFor the Purpose of:: To decrease pain, To increase ROM, To improve nutrient delivery to tissue,To increase oxygenation perfusion, To improve muscle performance and motor function, To improveability to perform ADL's, To decrease soft tissue restrictionThermo therapy (hot pack): YesUltrasound (thermal/non thermal ): YesFor the Purpose of:: To decrease pain, To increase ROM, To improve health of tissue, Todecrease soft tissue restriction, To increase flexibility/ROMThank you for the opportunity to evaluate your patient.For Medicare and Medicare HMO plans, please review the plan of care and approve it.It will need to be FAXED BACK to us at [phone] for Medicare purposes.Please let me know if there are questions or concerns regarding this plan of care.Physician Signature: Date: &lt ;Elect ronically signed by Arcadio Weems DPT> 09/13/17 0854CC: Mariana James DO DT: 09/13/17CLSSignedFor Medicare only, by signing this I certify the plan of care. Physicians Signature Date CERV SPINE 4 OR 5 Observed: 09/02/2017 Status: F Source: [place] VIEWS 4:19 PM [facility] REPOSITORY [facility] [id number] [place], [place] [address]Mght Spine 4 or 5 ViewsMR#: [id number] Acct: [id number]: ALISHA AG Rep #: [id number]: 1955 F 62 From: Jeremiah Solis MDPCP: Mariana James DO Status: REG CLIStudy: Cerv Spine 4 or 5 Views Date of Exam: 09/02/17Exam# [id number] Ordering Dr: Malys, Mariana DOSTUDY: X-RAY - CERVICAL SPINEREASON FOR EXAM: Female, 62 years old. Neck painTECHNIQUE: 6 view(s) of the cervical spine were obtained.COMPARISON: Prior comparison studies are not available for review at thistime. FINDINGS:Normal anterior atlantoaxial articulation. Normal odontoid process.There is straightening of the normal cervical lordosis. Normal vertebralbodies. There is degenerative disc disease with disc space narrowing andanterior osteophyte formation at C5-6 and C6-7, with bilateral foraminalstenosis.The soft tissue structures are unremarkable. ORDER #: [id number] RAD/Cerv Spine 4 or 5 ViewsIMPRESSION:C5-6 C6-7 degenerative diseaseElectronically Signed: Jeremiah Solis MD, MMXB1891/09/03 at 8:02 ESTTel , Service support , DC: Mariana James DO Cnc Programmer:Signed INITAL EVALUATION (1) Observed: 08/28/2017 Status: F Source: [place] - PT 1:45 PM [facility] RE[facility] [id number] [facility] [address] [place] [address] [phone] [phone] FaxREHABILITATION SERVICESINITIAL EVALUATIONMR#: [id number] Acct: [id number]: ALISHA AG Rep #: [id number]: 1955 62 From: Monserrat David PT, Cert. MDTReferring : Mariana James DO Status: REG RCRInsurance: [facility] *IN NETWORKSELF PAY INSURANCEPatient's Visit InformationMERSHIRIN AG is a 62 year old F referred to Physical Therapy by Mariana James DO DR.LMALYSwith a diagnosis of RIGHT HIP PAIN.Date of Evaluation: 08/22/17Physical Therapist: Monserrat Onofre Cross- Visit PlanFrequency: 2-3x /WeekDuration: 4-6 WeeksPlan: POSTURE CORRECTION/STRENGTHENING, INSTRUCTION IN APPROPRIATE BODY MECHANICS AND ACTIVITYMODIFICATIONS. DLS STARTING WITH A NEUTRAL SPINE PROGRESSING ROM TOLERATED. JIM LE ROM,STRETCHING AND STRENGTHENING. HEP INSTRUCTION.- SubjectiveSubjective: Work/Leisure: UNEMPLOYEED. Disability: YES - BIPOLAR. SINCE ABOUT 3-4 YEARS AGOBU CAN'T REMEMBER FOR SURE. Present symptoms: JIM LBP. RIGHT ANTERIOR, LATERAL AND POSTERIORRIGHT HIP, RIGHT THIGH, RIGHT LEG PAIN. TINGLING IN RIGHT CALF. NO FOOT SX. Present since:Jun. Pain Scale: WORST 7/10, LEAST 3/10. Currently: /10. Commenced as a resultof: FALL AT [employer] WHILE ROLLARSKATING. Symptoms at onset: RIGHT GROIN AND RIGHTMEDIAL KNEE. Worse: SITTING, STANDING, MOVING, WALKING, PICKING UP THINGS, BENDING OVER,SITTING ON THE FLOOR, CRAWLING AROUND ON THE FLOOR, GETTING IN/OUT OF CAR , GOING UP STEPS,GETTING IN/OUT OF BATH TUB, SITTING ON THE TOLIET IS HORRIBLE, LEANING FORWARD IN SITTING.BENDING RIGHT KNEE. Better: NOT A LOT, TYLONOL. Disturbed sleep: YES. Previoushistory/Previous treatment: HISOTRY OF TEARS IN RIGHT KNEE AND HAS HAD ACL RECONSTRUCTION ONTHE RIGHT. HISTORY OF JIM LE SCIATICA AND CHRONIC LBP. HAS HAD 5 OR SO SIDNEY'S IN HER LOW BACKTHAT HELP SOME. DX'D WITH BURSITIS IN RIGHT HIP AND A WEEK LATER RECEIVED INJECTION (ABOUT 2WEEKS AGO) BY DR. JORGE THAT DID HELP SOME OF THE PAIN FOR AWHILE BUT COMING BACK NOW.STOPPED NAPROXEN ABOUT 4 DAYS AGO AND PAIN IS GETTING WORSE. GOING TO SE DR. JAMES TOMORROW.Coughing/sneezing/straining: NEGATIVE. Gait: I LIMP SOME AND SOMETIMES I WALK SLOWER. IFAVOR MY RIGHT LEG. NOT USING ANY ASSISTIVE DEVICES. Difficulty initiating urinatin: NO.Accidents: MULTIPLE FALLS ROLLAR SKATING OVER THE LAST 4 YEARS. HAS HIT HEAD, HAS BROKE RIB,AND LANDED ON BUTTOCKS. OTHER FALLS WELL. Unexplained weight loss: LOSING WEIGHT. ABOUT10 LBS IN ABOUT 2 MONTHS DUE TO NOT EATING MUCH DUE TO STOMACH PAIN. STATES DR. NA GAMEZ HER STOMACH PAIN. Imaging: NO BACK OR RIGHT LE X-RAYS OR MRI SINCE THE FALL. PMH:DEPRESSIVE DISORDER, ASTHMA, GASTROESOPHAGEAL REFLUX DZ, ARTHRITIS, CONTI, LUMBAR RADICULOPATHY,OSTEOPENIA, INSOMNIA, DIARRHEA. Recent major surgery: RIGHT ACL RECONSTRUCTION- Pain RIGHT HAMSTRING AREAPain Intensity (Out of 10): 1Comment: AND RIGHT QUAD LOW BACK PAINPain Intensity (Out of 10): 1 RIGHT GROINPain Intensity (Out of 10): 0 LEFT GROINPain Intensity (Out of 10): 0 LEFT HAMSTRING AREAPain Intensity (Out of 10): 0 RIGHT CALFPain Intensity (Out of 10): 1 RIGHT MED ANKLEPain Intensity (Out of 10): 1- ObjectiveSitting Posture: POOR. Standing Posture: POOR. Lordosis: REDUCED. Lateral shift: NO.Relevant shift: N/A. Active Correction of posture: Other Observations: INDEP GAIT INTO PTWITHOUT AD OR GROSS DEVIATIONS NOTED. INDEP TRANSFER SIT TO STAND WITHOUT UE ASSIST. Motordeficit: JIM LE STRENGTH 5/5 WITH MMT EXCEPT RIGHT RIGHT HIP ER 3+/5 AND TESTING PROVOKESRIGHT LATERAL HIP PAIN. Sensory deficit: RIGHT MEDIAL CALF/JAUREGUI TENDERNESS BUT LIGHT TOUCHINTACT JIM LE'S. ROM deficit: JIM LE'S WFL'S. Dural Signs: POSITIVE RIGHT LE. Lumbar mvmtloss: flex - NIL. ext - JERONIMO. R SG - MOD. L SG - JERONIMO. PATIENT WITH C/O PAIN WITH RETURNFROM FULL FLEXION, EXT AND JCAKLYN LEFT SG TESTING. Core strength: POOR. Palpation:TENDENERNESS WITH PALPATION OF LOWER LUMBAR REGION INTO SACRAL AREA AND RIGHT POSTERIOR ANDLATERAL HIP. ALSO TENDER RIGHT MEDIAL JAUREGUI/CALF.- GoalsGoal 1:: DECREASE C/O LOW BACK AND RIGHT LE SX'SGoal Time Frame: 4-6 WeeksGoal 2:: IMPROVE SITTING, STANDING, MOVING, WALKING, LIFTING, BENDING, TRANSFER, AND ADLFUNCTIONGoal Time Frame: 4-6 WeeksGoal 3:: INSTRUCT IN PROPHYLAXISGoal Time Frame: 4-6 Weeks - Rehabilitation PotentialRehabilitation Potential: Fair- Anticipated InterventionsPatient/ Client Instruction: Educate patient on: Condition, Plan of Care, Risk Factors,Benefits of Fitness ProgramFor the Purpose of:: To improve self managementTherapeutic Exercise to Include: Strength training, Body mechanics, Postural training,Flexibilty training, Dynamic Lumbar StabilizationFor the Purpose of:: To improve ability of physical actions for home/community/work/ leisureThank you for the opportunity to evaluate your patient.For Medicare and Medicare HMO plans, please review the plan of care and approve it.It will need to be FAXED BACK to us at for Medicare purposes.Please let me know if there are questions or concerns regarding this plan of care.Physician Signature: Date: &lt ;Electronically signed by Monserrat David PT, Cert. MDT> 08/28/17 1345CC: Mariana James DO DT: 08/28/17JACSignedFor Medicare only, by signing this I certify the plan of care. Physicians Signature Date URGENT CARE VISIT Observed: 08/03/2017 Status: F Source: [place] REPORT 11:24 AM [facility] REPOSITORY [facility] [address] [phone] VISITDate of Service: 08/03/17MR#: [id number] Acct: [id number]: ALISHA AG Rep #: [id number]: 1955 Provider: Juan Manuel Tyson/Sex: 61/F [facility] [place]NOWStatus: SignedIntakeVital Signs08/03/17 Height 5 ft 1.5 inIntakeVisit Reasons: PAIN IN RIGHT LEGIs patient in pain?: YesAllergieschocolate flavor Allergy (Verified 10:50)Unknownamoxicillin [Amoxicillin] Adverse Reaction (Verified 08/03/17 10:50)Otherbupropion HCl [From Wellbutrin] Adverse Reaction (Verified 08/03/17 10:50)Othercosmetics Allergy (Uncoded 08/03/17 10:50)Unknownnuts Allergy ( Uncoded 08/03/17 10:50)UnknownMedicationsLansoprazole [Prevacid] 30 mg PO DAILY [History Confirmed 08/03/17]Montelukast [Singulair] 10 mg PO DAILY 02/06/14 [ History Confirmed 08/03/17]Sumatriptan Succinate [Imitrex] 100 mg PO .X1 PRN 02/06/14 [History Confirmed 08/03/17]Venlafaxine HCl [Effexor] 75 mg PO BID 02/06/14 [ History Confirmed 08/03/17]acetaminophen 325 mg tablet 500 mg PO Q6H PRN 07/31/17 [ History Confirmed 08/03/17]ascorbic acid (vitamin C) 1,000 mg tablet 1 g PO Q6H [History Confirmed 08/03/17]cholecalciferol (vitamin D3) 1,000 unit capsule 1, 000 unit PO ONCE 07/31/17 [History Sicjjbchu62/06/18]docusate sodium 50 mg capsule 50 mg PO QDAY 07/31/17 [History Confirmed 08/03/17]ferrous sulfate 325 mg (65 mg iron ) tablet 325 mg PO TID tab 07/31/17 [History Vkquqhgbd74/06/18]garlic tablet 300 mg PO QDAY 07/31/17 [History Confirmed 08/03/17]ibuprofen 200 mg tablet 200 mg PO ONCE 07/31/17 [History Confirmed 08/03/17]lutein-zeaxanthin 15 mg-0.7 mg capsule cap PO 07/31/17 [History Confirmed 08/03/17]meclizine 25 mg tablet 25 mg PO BID PRN # 14 tab 07/31/17 [Rx Confirmed 08/03/17]vitamin A 8,000 unit capsule 8,000 unit PO QDAY 07/31/17 [History Confirmed 08/03/17]vitamin B complex tablet 1 tab PO QDAY 10/13 [History Confirmed 08/03/17]vitamin E 200 unit capsule 200 unit PO QDAY [History Confirmed 08/03/17]zinc acetate 25 mg (zinc) capsule 25 mg PO QDAY 10/13 [History Confirmed 08/03/17]cyclobenzaprine 5 mg tablet 5 mg PO TID PRN 10 Days #30 tab 08/03/17 [Rx Confirmed 08/03/17]methylprednisolone 4 mg tablets in a dose pack 4 mg PO PER PKG DIR 5 Days #21 tab 08/03/17 [RxConfirmed 08/03/17]naproxen 250 mg tablet 250 mg PO TID 10 Days #30 tab 08/03/17 [Rx Confirmed 08/03/17] PFSHMedical History BPPV (benign paroxysmal positional vertigo) (Acute)Vertigo (Acute)Arthritis (Acute)Asthma (Acute)Back pain (Acute)Difficulty balancing (Acute)Hay fever (Acute)Incontinence (Acute)Knee pain (Acute)child (Acute)Surgical History Hx of knee surgery (Acute)S/P breast lumpectomy (Acute)Social HistorySmoking Status: Never smokeralcohol intake: neverHPIPAIN IN RIGHT LEG:Details: ALISHA AG, is a 61 F who presents to the office today for right-sided hip pain.Patient states that approximately 2 weeks ago she was roller skating which she does on aregular basis and twisted her right leg and noticed immediate hip pain. She did not fall on itor have any other traumatic events however has had muscle soreness since that time. Shestates that the pain is made worse with pressure of lying on it at night. She has been usingher prescription of [place] for the pain which she states does help. She denies any muscleweakness or loss in range of motion. She denies any numbness or tingling. She has had noissues with her ambulation. No loss of bowel or bladder function. No other associatedsymptoms or alleviating/aggravating factors.ROSConstConstitutional: No fever(s), body ache, chills or abnormal sleep patternRespRespiratory: No chest congestion or shortness of breathMuscMusculoskeletal: Positive for joint pain;no abnormal walking, back pain, limited range of motion or muscle weaknessSkinSkin: No wounds, skin swelling or soresNeuroNeurology: No abnormal walking or unsteady gait/ balancePsychPsychiatric: No abnormal sleep pattern, No anxietyExamConstGeneral: cooperative, well developedRespEffort AND Inspection: normal respiratory effortAuscultation: Bilateral: Clear to AuscultationCardioPalpation: normal PMIRate: regular rateRhythm: regular rhythmMuscMusculoskeletal: Yes joint tenderness;no muscle weakness or decreased ROMNeuroGeneral: alert, moves all extremities, CN's II-XI intact bilaterallyExtremGeneral: full ROMOther: Pain elicited with palpation directly over the right trochanteric hip bursa. Patientcontinues to have full range of motion, strength and sensation. No deformity noted. Patienthas normal nonantalgic gait.PsychAppearance: grossly normalMood: congruent moodAssessment AND PlanProblems1. Bursitis of right hip, unspecified bursa M70.71; M70.66WdkjbvSskmm7. Strain of right hip and thigh, initial encounter S76.011A; S76.011A; S76.911A; S76.911AStatusAcutePlanPatient advised to use ice and/or warm compresses to the area 3 times daily and to takemedications as prescribed. Patient states that she does have follow-up with her orthopedicnext week. Advised to follow-up sooner if symptoms worsen. Advised of potential red flags andwhen appropriate report to the ED. Patient verbalized understanding all of the above.MedicationsNew:Discontinued:CodingLevel of Care CodeOff vis,est,level 3DiagnosesBursitis of right hip, unspecified bursa M70.71; M70.71Hip bursitis location: unspecifiedStrain of right hip and thigh, initial encounter S76.011A ; S76.011A; S76.911A; S76.911AEncounter type: initial qubyueppy40/06/18 1124 <Electronically signed by Juan Manuel XIONG>Date Juan Manuel Antonio Signature: Date (if applicable)CC: URGENT CARE VISIT Observed: 07/31/2017 Status: F Source: [place] REPORT 3:52 PM [facility] [place] REPOSITORY Now [address] [phone] VISITDate of Service: 07/31/17MR#: [id number] Acct: [id number]: ALISHA AG Rep #: [id number]: 1955 Provider: Reinaldo Tyson/Sex: 61/F Location[facility] [place].NOWStatus: SignedIntakeVital Signs07/31/17 Height 5 ft 1.5 inIntakeVisit Reasons: VertigoIs patient in pain?: NoAllergieschocolate flavor Allergy (Verified 07/31/17 15:31)Unknownamoxicillin [Amoxicillin] Adverse Reaction (Verified 02/06/14 05:02)Otherbupropion HCl [From Wellbutrin] Adverse Reaction (Verified 02/06/14 05:02)Othercosmetics Allergy (Uncoded 07/31/17 15:31)Unknownnuts Allergy ( Uncoded 07/31/17 15:31)UnknownMedicationsCelecoxib [Celebrex] 200 mg PO DAILY 02/06/14 [History Confirmed 07/31/17]Lansoprazole [Prevacid] 30 mg PO DAILY 02/06/14 [ History Confirmed 07/31/17]Montelukast [Singulair] 10 mg PO DAILY 02/06/14 [History Confirmed 07/31/17]Sumatriptan Succinate [Imitrex] 100 mg PO .X1 PRN 02/06/14 [History Confirmed 07/31/17]Venlafaxine HCl [Effexor] 75 mg PO BID 02/06/14 [History Confirmed 07/31/17]acetaminophen 325 mg tablet 500 mg PO Q6H PRN 07/31/17 [History Confirmed 07/31/17]ascorbic acid (vitamin C) 1,000 mg tablet 1 g PO Q6H 07/31/17 [History Confirmed 07/31/17]cholecalciferol (vitamin D3) 1,000 unit capsule 1,000 unit PO ONCE 07/31/17 [History Msqyxhzgo72/03/18]docusate sodium 50 mg capsule 50 mg PO QDAY 07/31/17 [History Confirmed 07/31/17]ferrous sulfate 325 mg (65 mg iron) tablet 325 mg PO TID tab 07/31/17 [History Stkmwufcn67/03/18]garlic tablet 300 mg PO QDAY 07/31/17 [History Confirmed 07/31/17]ibuprofen 200 mg tablet 200 mg PO ONCE 10/13 [History Confirmed 07/31/17]lutein-zeaxanthin 15 mg-0.7 mg capsule cap PO 07/31 [History Confirmed 07/31/17]meclizine 25 mg tablet 25 mg PO BID PRN #14 tab 10/13 [Rx]vitamin A 8,000 unit capsule 8,000 unit PO QDAY 07/31/17 [History Confirmed 07/31/17]vitamin B complex tablet 1 tab PO QDAY 07/31/17 [History Confirmed 07/31/17]vitamin E 200 unit capsule 200 unit PO QDAY 07/31/17 [History Confirmed 07/31/17]zinc acetate 25 mg (zinc) capsule 25 mg PO QDAY 07/31/17 [History Confirmed 07/31/17]PFSHMedical HistoryBPPV (benign paroxysmal positional vertigo) (Acute)Vertigo (Acute)Arthritis (Acute)Asthma (Acute)Back pain (Acute) Difficulty balancing (Acute)Hay fever (Acute)Incontinence (Acute)Knee pain (Acute)child (Acute)Surgical HistoryHx of knee surgery (Acute)S/P breast lumpectomy (Acute) Social HistorySmoking Status: Never smokeralcohol intake: neverHPIVertigo:Chief Complaint: dizzinessDetails: ALISHA AG, is a 61 F who presents to the office today for initial evaluation newonset dizziness times approximately 48 hours. Patient noted 2 evenings ago developed some somelightheadedness dizziness with mild nausea and emesis 1. She notes no recurrent emesis thoughcontinued mild nausea as well as lightheadedness dizziness which is exacerbated with positionchange and standing from sitting position. She states she has only been eating saltines overthe last 24 hours to assist with nausea. She notes no recent changes in her current medicationregimen. She notes no complaints of fever, chills, sweats, hearing changes, or sinus pressure.She notes no history of recent head trauma. She freely admits to drinking very few fluids,but was nonspecific otherwise.ROSConstConstitutional: No chills , fever(s), night sweats, body ache, decreased energy, malaise,frequent falls, weakness, abnormal sleep pattern, fatigue, headache(s) or excessive sweatingEyesEyes: No change in vision or visual disturbancesENTENT: Positive for post nasal drip and dizziness/vertigo;no abnormal hearing, ear pain, ear discharge, ear pressure, hearing loss, sinus pressure,headache(s), tinnitus, balance problems, nosebleed/ epistaxis, nasal congestion, nasalobstruction, nose pain, sinus pain, nasal discharge, facial pain, dental pain or sore throatRespRespiratory: No cough or chest congestionCardioCardiology: No excessive sweating, chest pain at rest, chest pain with exertion, shortness ofbreath, dyspnea on exertion, irregular heart rhythm, generalized swelling or leg pain withexertionGastroGI: No abdominal pain, change in stool character or change in bowel habitsMuscMusculoskeletal: No joint pain, back pain, limited range of motion or abnormal walkingSkinSkin: No change in hair or soresNeuroNeurology: Positive for dizziness;no abnormal speech, abnormal movements, frequent falls, weakness, unsteady gait/balance, lackof coordination, loss of vision, restless legs, fainting, tremor(s), behavioral changes,confusion, memory loss, visual disturbances, abnormal hearing, headache(s) or abnormal walkingPsychPsychiatric : No abnormal sleep pattern, No behavioral changes, No confusion, No memory loss, Positive for anxietyEndoEndocrine: No change in body appearance, cold intolerance, heat intolerance, fatigue orexcessive sweatingAller/ImmAllergy/Immunologic: No food intoleranceHema/LympHematologic/Lymphatic: No easy bruisingExamConstGeneral: cooperative, healthy appearing, no acute distressNutritional Appearance: average body habitusOrientation: alert, awake, oriented o7YSRIUIulp: normal to inspection, normocephalic, atraumatic, no temporal artery tenderness, no scalptenderness, no scalp lesions, other (lateral rotation of head exacerbates symptoms)Ears: hearing grossly normal bilaterally, external ears normal, TM's normal bilaterally, EAC'snormal, mastoids normal, no periauricular adenopathyNose: external nose normal, nares normal, septum normal, no nasal dischargeFace and sinus: normal facial exam, sinuses nontender, face symmetricMouth: oral mucosae normal, lip normal, tongue normal, oropharynx normalTeeth and gingiva: dentition normal, gingiva normalThroat: posterior oropharynx normal, tonsils normalEyesGeneral: appearance normal, both eyes and all related structuresVisual Monteneg[place]: normal visual [place] by confrontationAlignment and Position: alignment normal, position normalPeriorbital: periorbital findings normalEyelids: eyelids normalConjunctivae: conjunctivae normalSclera: sclerae normalCornea: corneas normalPupils: PERRL, normal by confrontation, accommodation normalNeckNeck: normal visual inspection, full ROM , no lymphadenopathy, no meningeal signs, suppleNeck mass: NoThyroid: thyroid normalLymphatic: no lymphadenopathy notedChestChest palpation AND inspection: normal inspection of the chestRespEffort AND Inspection: normal respiratory effort, able to speak in complete sentencesAuscultation: Bilateral: Clear to AuscultationCardioPalpation: normal PMIRate: regular rateRhythm: regular rhythmHeart Sounds: S1 normal, S2 normal, no gallops, no murmurs, no rubsPulses: radial pulses presentGIInspection: normal to inspectionPalpation: soft, no hepatosplenomegalySkinGeneral: no rashes or lesions notedNeuroGeneral: alert, awake, oriented x3, gait normalCranial Nerves: CN's II-XI intact bilaterallyCognition: normal cognitionSpeech: speech normalGait: normal gaitMotor: muscle tone normal throughoutSensory Exam: no sensory deficits notedExtremGeneral: normal to inspectionPsychAppearance: grossly normalMental Status: mental status grossly normalMood: congruent moodAffect: normal affectSpeech and Movement: speech and movement normalAttitude: cooperativeThought Process: normalThought Content: normalJudgment: judgment goodAssessment AND Plan1. Vertigo R422. BPPV ( benign paroxysmal positional vertigo) H81.10PlanMeclizine as prescribed today.Increase fluid intake, rest, Advil/Tylenol as needed for symptomatic relief.F/u w/ pcp in 2-3 days if symptoms do not improve, sooner should symptoms worsen or any otherconcerns develop.Patient states acknowledging understanding.Plan DetailOther MedicationsNew:CodingLevel of Care CodeOff vis,new,level 4DiagnosesVertigo [id number] (benign paroxysmal positional vertigo) H81. 1552 < Electronically signed by Reinaldo Gonzalez PA>Date Reinaldo Gonzalez PACosigner Signature: Date (if applicable)CC: DEXA BONE DENSITY Observed: 05/28/2017 Status: F Source: [place] STUDY () 10:55 AM [facility] [place] REPOSITORY [facility] [address] [place], [place] [address]Acvm Bone Density Study ()MR#: [id number] Acct: [id number]: ALISHA AG Rep #: [id number]: 1955 F 61 From: Dimitri Ordonez MDPCP: Mariana James DO Status: REG CLIStudy: Dexa Bone Density Study () Date of Exam: 05/28/17Exam# [id number] Ordering Dr: Derrick Anand DOSTUDY: DUAL ENERGY X-RAY ABSORPTIOMETRY / DXAREASON FOR EXAM: Female, 61 years old. The patient is postmenopausal.Loss of height.TECHNIQUE: Bone Mineral Density (BMD) measurements of lumbar spine andbilateral hips were obtained.COMPARISON: Comparison is made with prior study dated May 15, 2011. FINDINGS:Lumbar Spine (L1-L4): g/cm2 ( 1.042) / T-score (-1.0) / Z-score (0.5)Findings are suggestive of osteopenia with a low fracture risk.Left Femur Total: g/cm2 (0.851) / T-score (-1.2) / Z-score (-0.1)Left Femoral Neck: g/cm2 (0.773) / T-score (-1.9) / Z-score (-0.5) Right Femur Total: g/cm2 (0.824) / T-score (-1.5) / Z-score (-0.3)Right Femoral Neck: g/cm2 (0.780) / T-score (-1.9) / Z-score (-0.5)The T-Scores on the most recent prior examination were:Lumbar Spine (L1-L4): There has been worsening of bone density since theprevious examination.Left Femur Total: which represents no significant change. .Right Femur Total: which represents a worsening of 0.4%. ORDER #: [id number] HPBD/Dexa Bone Density Study (HP)IMPRESSION:The patient is considered osteopenic as outlined below according to WorldHeath Organization (WHO) criteria with a moderate fracture risk. There hasbeen worsening of bone density since the previous examination. Reference Information:The T- score is the number of standard deviations above or below thestandard which is normal for young adults at their peak bone mineraldensity. The World Health Organization ( WHO) interprets the T-scores asfollows:Above -1 Normal bone densityBetween -1 and -2.5 OsteopeniaEqual to / or below -2.5 OsteoporosisAs a practical clinical guideline, osteopenia may be graded as follows:Mild -1 through -1.5Moderate - 1.6 through -2.0Severe -2.1 through -2.4The Z-score is the number of standard deviations above or below age-matchedcontrols. A Z-score of less than -1.5 would be considered abnormal.References:1. NIH Osteoporosis and Related Bone Diseases http://www.osteo.org2. International Society for Clinical Densitometry http://www.iscd.org3. National Osteoporosis Foundation http://www.nof.orgElectronically Signed:Dimitri Ordonez MD at 13: 12 [facility] [phone], Service support , CI: Mariana James DO; Derrick Anand DO Cnc Programmer:Signed FINGER(S) MIN 2 VIEWS Observed: 05/21/2017 Status: F Source: [place] 12:08 PM [facility] [place] RE[facility]ITORY [facility] [id number] [place] [address]Usfkut(s) Min 2 ViewsMR#: [id number] Acct: [id number]: ALISHA AG Rep #: [id number]: 1955 F 61 From: Henrique EwyPCP: Mariana James DO Status: REG CLIStudy: Finger(s) Min 2 Views Date of Exam: 05/21/17Exam# [id number] Ordering Dr: Derrick Anand DOSTUDY: X-RAY - LEFT HAND, ATTENTION FOURTH FINGERREASON FOR EXAM: Female, 61 years old. PainTECHNIQUE: 3 view(s) of the finger were obtained.COMPARISON: None. FINDINGS:Normal metacarpal head. Normal metacarpophalangeal joint.Normal proximal phalanx. Normal middle phalanx. Normal distal phalanx.Normal proximal interphalangeal joint. Normal distal interphalangealjoint.There is no demonstrated fracture. ORDER #: [id number] RAD/Finger(s) Min 2 ViewsIMPRESSION:Normal x-ray examination of the finger.No fracture.Electronically Signed:Henriquebrittany ChristyDO [id number] at 19:04 EDTTel , Service support , RS: Mariana James DO; Derrick Anand DO Cnc Programmer:Signed SCREENING MAMM (CAD), Observed: 05/03/2017 Status: F Source: [place] BILAT 3:19 PM [facility] [place] REPOSITORY [facility] [address] [place] [address]TPUIQGSTM MAMM (CAD), BILATMR#: [id number] Acct: [id number]: ALISHA AG Rep #: [id number]: 1955 F 61 From: Dimitri Ordonez MDPCP: Mariana James DO Status: REG CLIStudy: SCREENING MAMM (CAD), BILAT Date of Exam: 05/03/17Exam# [id number] Ordering Dr: Mariana James DOMAMMOGRAPHY - BILATERAL SCREENINGREASON FOR EXAM: Female, 61 years old. Routine annual screeningexamination.PERTINENT HISTORY: Remote left breast biopsy.TECHNIQUE: Digital bilateral breast andrey (3D mammographic acquisition ) inthe CC and MLO projections. 2-D mediolateral oblique (MLO) and craniocaudad(CC) views of both breasts were obtained. CAD: Full Field DigitalMammography with Computer Added Detection was performed.COMPARISON: Comparison is made with prior study dated April 09, 2016and December 10, 2013. FINDINGS: Breast Composition: The breasts are heterogeneously dense, which mayobscure small masses.There are no dominant masses or suspicious calcifications.No other significant abnormalities are identified. There has been nosignificant change since the prior study. ORDER #: [id number] HPBI/SCREENING MAMM (CAD), BILATIMPRESSION:Stable bilateral screening mammogram. Yearly follow-up mammogramrecommended. (A) ASSESSMENT CATEGORY:BIRADS Category 1: Negative. A letter regarding these results will besent to the patient by the facility within 30 days.Approximately 10% of breast cancers are not detected by mammography. Anormal mammogram should not delay biopsy of a clinically suspiciousabnormality.[id number] Signed:Dimitri Ordonez MD at 8:45 EDTTel [id number], Service support , OS: Mariana James DO Cnc Programmer:Signed BILAT BRST SCREEN Observed: 05/03/2017 Status: F Source: [place] ANDREY ADD-ON 3:19 PM [facility] [place] REPOSITORY [facility] [address] [place], [place] [address]Arhtt Brst Screen Andrey Add-OnMR#: [id number] Acct: [id number]: ALISHA AG Rep #: [id number]: 1955 F 61 From: Dimitri Ordonez MDPCP: Mariana James DO Status: REG CLIStudy: Bilat Brst Screen Andrey Add-On Date of Exam: 05/03/17Exam# [id number] Ordering Dr: Mariana James DOMAMMOGRAPHY - BILATERAL SCREENINGREASON FOR EXAM: Female, 61 years old. Routine annual screeningexamination.PERTINENT HISTORY: Remote left breast biopsy.TECHNIQUE: Digital bilateral breast andrey (3D mammographic acquisition) inthe CC and MLO projections. 2-D mediolateral oblique (MLO) and craniocaudad(CC) views of both breasts were obtained. CAD: Full Field DigitalMammography with Computer Added Detection was performed.COMPARISON: Comparison is made with prior study dated April 09, 2016and December 10, 2013. FINDINGS:Breast Composition: The breasts are heterogeneously dense, which mayobscure small masses.There are no dominant masses or suspicious calcifications.No other significant abnormalities are identified. There has been nosignificant change since the prior study. ORDER #: [id number] HPBI/Bilat Brst Screen Andrey Add-OnIMPRESSION:Stable bilateral screening mammogram. Yearly follow-up mammogramrecommended. (A) ASSESSMENT CATEGORY:BIRADS Category 1: Negative. A letter regarding these results will besent to the patient by the facility within 30 days.Approximately 10% of breast cancers are not detected by mammography. Anormal mammogram should not delay biopsy of a clinically suspiciousabnormality.[id number] Signed:Dimitri Ordonez MD at 8:45 [facility] [phone], Service support , RB: Mariana James DO Cnc Programmer:Signed Observed: 03/14/2017 Status: F Source: [place] CULTURE, URINE 1:36 PM [facility] REPOSITORY Urine CultureClinical correlation necessary, Possible skin contamination. ORGANISM 1: Coag Negative StaphColony Count 50,000-80,000 Coag Negative Staph: REACTION Benzylpenicillin NF >=0.5 R Cefoxitin *NF - Inducable Clindamycin Resistan - Gentamicin $ <=0.5 S Levofloxacin $ 0.25 S Nitrofurantoin $ 64 I Oxacillin NF <=0.25 S Rifampin $$ <=0.5 S Tetracycline NF 2 S Vancomycin $ 1 S(NF) indicates non-formulary drug at [facility]. Approval by Infectious Disease Specialist required before non- formulary drugs may be ordered and/or dispensed. * CLSI guidelines does not recommend testing of cephalosporins. This interpretation is deduced from Beta-lactam/penicillin results. Performed By: #### M100.0650 ####[facility] [address] [place], [address] ALLERGIES ALLERGIES DATE TYPE / CODE NAME / CODE REACTION SEVERITY SOURCE 10/30/2017 Drug bupropion Other Unknown [place] Allergy/307390050(S HCl/[id number]( [facility] NOM CT) RXNORM) Hospital Repository 10/30/2017 Drug amoxicillin/F00 Other Unknown [place] Allergy/278455285(S 6550940(RXNORM) [facility] CT) Hospital Repository 10/30/2017 Drug chocolate Unknown Unknown [place] Allergy/390955652(S flavor/[id number] [facility] CT) 93(RXNORM) Hospital Repository 10/30/2017 Miscellaneous cosmetics Unknown Unknown [place] Allergy/207399322([facility]) Hospital Repository 10/30/2017 Miscellaneous nuts Unknown Unknown [place] Allergy/112628260([facility]) Hospital Repository 02/06/2014 Drug bupropion Other [place] Allergy/597309537(S HCl/[id number]( [facility] CT) RXNORM) Hospital Repository 02/06/2014 Drug amoxicillin/F00 Other [place] Allergy/510977496(S 7053805(RXNORM) [facility]) Hospital Repository ENCOUNTERS ENCOUNTERS ADMIT/DISCHARGE ACCOUNT ADMITTING ENCOUNTER LOCATION SOURCE NUMBER CLASS 12/13/2017 [id number] Ambulatory [place] 4 [facility] ing:MRI Repository 11/29/2017 [id number] Ambulatory [place] 5 [facility] ing:OT Repository 11/19/2017 [id number] Ambulatory [place] 4 [facility] ing:OPUS Repository 11/18/2017/ [id number] Ambulatory [place] 8 7 [facility] ing:OT Repository 10/30/2017/ [id number] Ambulatory BMSBuilding:B [place] 8 0 [facility] Repository 10/07/2017 [id number] Ambulatory [place] 2 [facility] ing:MTRAD Repository 09/24/2017 [id number] Ambulatory [place] 8 [facility] ing:HPRAD Repository 09/02/2017 [id number] Ambulatory [place] 6 [facility] ing:MTRAD Repository 08/03/2017/ [id number] Ambulatory BMSBuilding:B [place] 8 2 [place].NOW [facility] Repository 07/31/2017/ [id number] Ambulatory BMSBuilding:B [place] 8 2 [place].NOW [facility] Repository 05/28/2017 [id number] Ambulatory [place] 6 [facility] ing:BD Repository 05/21/2017 [id number] Ambulatory [place] 6 [facility] ing:MTRAD Repository 05/03/2017 [id number] Ambulatory [place] 2 [facility] ing:BI Repository 03/14/2017 [id number] Ambulatory [place] 1 [facility] ing:BFHLAB Repository PAYERS PAYERS ENCOUNTER GUARANTOR PAYER SUBSCRIBER SOURCE 12/13/2017 ALISHA [place] Primary ALISHA J [place] [id number] Insurance:MYCARE CRSC FRANKDOB: Community [address] *IN [facility] [id number] Number: Repository [address]Eay: 330 [id number] [phone] () Date:8220-94-17GQUP CLAIMS DEPTPO [address] [address]BB: 12/13/2017 Secondary NOT GIVENUNK [place] Insurance:SELF PAY [facility] Number: Effective Repository Date:2017-12-04 11/29/2017 ALISHA Griffin Primary ALISHA J [place] [id number] Insurance:MYCARE CRSC FRANKDOB: Community [address] *IN [facility] [id number], [place] Number: Repository [address]Zws: 330 [id number] [phone] () Date:6742-18-78JOPQ CLAIMS DEPTPO [address] [place] [id number]: 11/29/2017 Secondary NOT GIVENUNK [place] Insurance:SELF PAY [facility] Number: Effective Repository Date:2017-08-19 11/19/2017 ALISHA J Primary ALISHA J [place] [id number] Insurance:MYCARE CRSC FRANKDOB: Community [address] *IN [facility] [id number], [place] Number: Repository [address]Pxq: [phone] [id number] [phone] (HP) Date:0831-32-46RCNN CLAIMS DEPTPO [address] [address]FN: 11/19/2017 Secondary NOT GIVENUNK [place] Insurance:SELF PAY [facility] Number: Effective Repository Date:2017-11-14 11/18/2017 ALISHA J Primary ALISHA J [place] [id number] Insurance:MYCARE CRSC FRANKDOB: Community [address] *IN [facility] [id number], [place] Number: Repository [address]Vkg: 330 [id number] [phone]) Date:7850-20-77HOQZ [address]S [address] [address]WQ: 11/18/2017 Secondary NOT GIVENUNK [place] Insurance:SELF PAY [facility] Number: Effective Repository Date:2017-11-18 10/30/2017 ALISHA J Primary ALISHA J [place] [id number] S Insurance:[employer] FRANKDOB: Community [address] *IN [id number] [place] Number: Repository [id number]: 330 [id number] [phone]) Date:0882-83-56HWVW [place]S DE[address]PO [address] [address]VB: 10/30/2017 Secondary NOT GIVENUNK [place] Insurance:SELF PAY [facility] Number: Effective Repository Date:2017-10-30 10/07/2017 ALISHA J Primary ALISHA J [place] [id number] S Insurance:MYCARE CRSC FRANKDOB: Community [address] *IN [facility] [id number] Number: Repository [address]Sui: 330 [id number] [phone] (HP) Date:7029-13-21WQHT [place]S [address] [address]AR: 10/07/2017 Secondary NOT GIVENUNK [place] Insurance:SELF PAY [facility] Number: Effective Repository Date:2017-10-07 09/24/2017 ALISHA J Primary ALISHA J [place] [id number] S Insurance:MYCARE CRSC FRANKDOB: Community [address] *IN [facility] [id number] Number: Repository [address]Zna: 330 [id number] [phone]) Date:3361-29-20AYCZ CLAIMS [address] [address]PT: 09/24/2017 Secondary NOT GIVENUNK [place] Insurance:SELF PAY [facility] Number: Effective Repository Date:2017-09-24 09/02/2017 ALISHA J Primary ALISHA J [place] [id number] S Insurance:MYCARE CRSC FRANKDOB: Community [address] *IN [facility] [id number] Number: Repository [address]Bef: 330 [id number] [phone] (HP) Date:3485-04-39FCML [address]S [address] [address]IO: 09/02/2017 Secondary NOT GIVENUNK [place] Insurance:SELF PAY [facility] Number: Effective Repository Date:2017-09-02 08/03/2017 ALISHA J Primary ALISHA J [place] [id number] S Insurance:MYCARE CRSC FRANKDOB: Community [address] *IN [facility] [id number] Number: Repository [id number]: 330 [id number] [phone]) Date:8304-94-61HHMR CLAIMS [address] [address]LJ: 08/03/2017 Secondary NOT GIVENUNK [place] Insurance:SELF PAY [facility] Number: Effective Repository Date:2017-08-03 07/31/2017 ALISHA [place] Primary ALISHA J [place] [id number] S Insurance:MYCARE CRSC FRANKDOB: Community [address] *IN [facility] [id number][place] Number: Repository [address]Lji: 330 [id number] [phone] (HP) Date:2496-03-68VXZW CLAIMS [address]PT[address] [place] [address]ML: 07/31/2017 Secondary NOT GIVENUNK [place] Insurance:SELF PAY [facility] Number: Effective Repository Date:2017-07-31 05/28/2017 ALISHA Griffin Primary ALISHA J [place] [id number] S Insurance:MYCARE CRSC FRANKDOB: Community [address] *IN [facility] [id number], [place] Number: Repository [address]Bow: 330 [id number] [phone] (HP) Date:8805-13-88XJSE CLAIMS DEPTPO [address] [place] [address]SY: 05/21/2017 ALISHA Griffin Primary ALISHA J [place] [id number] S Insurance:MYCARE CRSC FRANKDOB: Community [address] *IN [facility] [id number], [place] Number: Repository [address]Zjv: 330 [id number] [phone] (HP) Date:3356-06-64ERLP CLAIMS [address] [address]SD: 05/03/2017 ALISHA Griffin Primary ALISHA J [place] [id number] S Insurance:MYCARE CRSC FRANKDOB: Community [address] *IN [facility] [id number], [place] Number: Repository [address]Jzr: 330 [id number] [phone] () Date:6943-34-75TUVM CLAIMS [address] [address]HT: 03/14/2017 ALISHA Griffin Primary ALISHA [id number] S Insurance:[facility] Community [address] *IN [employer] [id number], [place] Number: Repository [address]Dwo: ([phone] [id number] [phone] () Date:6773-54-27ADHI CLAIMS [address], [place] [address]SU:
--- OUTSIDE RECORDS SUMMARY | 2018-01-16 12:31 | XMS RPT_ITS ---
:1955 Author Organization OHIP Support Name Relationship Address Phone D Unavailable Unavailable Unavailable ESTELITA, RENEE Unavailable [address] + [place] [address] D Unavailable Unavailable Unavailable ESTELITA, RENEE Unavailable [address] + [place] [address] D Unavailable Unavailable Unavailable ESTELITA, RENEE Unavailable [address] + [place] [address] D Unavailable Unavailable Unavailable ESTELITA, RENEE Unavailable [address] + [place] [address] D Unavailable Unavailable Unavailable ESTELITA, RENEE Unavailable [address] + [place] [address] D Unavailable Unavailable Unavailable ESTELITA, RENEE Unavailable [address] + [place] [address] D Unavailable Unavailable Unavailable ESTELITA, RENEE Unavailable [address] + [place] [address] D Unavailable Unavailable Unavailable ESTELITA, RENEE Unavailable [address] + [place] [address] D Unavailable Unavailable Unavailable ESTELITA, RENEE Unavailable [address] + [place] [address] D Unavailable Unavailable Unavailable ESTELITA, RENEE Unavailable [address] + [place] [address] D Unavailable Unavailable Unavailable ESTELITA, RENEE Unavailable [address] + [place] [address] D Unavailable Unavailable Unavailable ESTELITA, RENEE Unavailable [address] + [place] [address] D Unavailable Unavailable Unavailable ESTELITA, RENEE Unavailable [address] + [place] [address] D Unavailable Unavailable Unavailable RENEE CAPONE Unavailable [address] + [place] [address] Care Team Providers Name Role Phone Malys, [...] Malys, Mariana Primary Care Unavailable Prebish, Mariana MANAGER CASE MANAGEMENT-C Attending Unavailable Prebish, Mariana MANAGER CASE MANAGEMENT-C Referring Unavailable Malys, Mariana Primary Care Unavailable Derrick Anand Attending Unavailable Derrick Anand Referring Unavailable Malys, Mariana Primary Care Unavailable Reinaldo Gonzalez Attending Unavailable Malys, Mariana Referring Unavailable Malys, Mariana Primary Care Unavailable Glory Deal Attending Unavailable Glory Deal Referring Unavailable Malys, Mariana Primary Care Unavailable Prebish, Mariana MANAGER CASE MANAGEMENT-C Attending Unavailable Prebish, Mariana MANAGER CASE MANAGEMENT-C Referring Unavailable Malys, Mariana Primary Care Unavailable Luis Huffman Attending Unavailable Luis Huffman Referring Unavailable Malys, Mariana Primary Care Unavailable PROBLEMS PROBLEMS DATE TYPE CONDITION / CODE ATTENDING STATUS SOURCE 12/13/2017 Unknown M25.551 - Pain in Prebish, Mariana Active [place] right hip / MANAGER CASE MANAGEMENT-C Community M25.551(ICD-10) Hospital Repository 12/13/2017 Unknown M25.552 - Pain in Prebish, Mariana Active [place] left hip / MANAGER CASE MANAGEMENT-C Community M25.552(ICD-10) Hospital Repository 12/13/2017 Unknown M16.11 - Unilateral Prebish, Mariana Active [place] primary MANAGER CASE MANAGEMENT-C Community osteoarthritis, Hospital right hip / Repository M16.11(ICD-10) 12/13/2017 Unknown M16.12 - Unilateral Prebish, Mariana Active [place] primary MANAGER CASE MANAGEMENT-C Community osteoarthritis, left Hospital hip / M16.12(ICD-10) Repository 11/19/2017 Unknown N95.0 - MiedelKatharineh Active [facility] Postmenopausal Community bleeding / Hospital N95.0(ICD-10) Repository 09/02/2017 Unknown S16.1XXA - Strain of Mariana James Active [facility] muscle, fascia and Community tendon at neck Hospital level, initial Repository encounter / S16.1XXA(ICD-10) 07/31/2017 Unknown R42 - Dizziness and Reinaldo Gonzalez Active [place] giddiness / Community R42(ICD-10) Hospital Repository 07/31/2017 Unknown H81.10 - Benign Reinaldo Gonzalez Active [facility] paroxysmal vertigo, Community unspecified ear / Hospital H81.10(ICD-10) Repository 05/31/2017 Unknown OTH DISRD OF BONE Cheng, Derrick Active [facility] DENSITY AND Community STRUCTURE, MULTIPLE Hospital SITES / Repository M85.89(ICD-10) 05/28/2017 Unknown PAIN IN LEFT ChengDerrick Active [facility] FINGER(S) / Community M79.645(ICD-10) Hospital Repository 05/28/2017 Unknown ENCNTR SCREEN Mariana James Active [place] MAMMOGRAM FOR [facility] MALIGNANT NEOPLASM Hospital BREAST / Repository Z12.31(ICD-10) 05/28/2017 Unknown DYSURIA / MalysMariana Active [place] R30.0(ICD-10) [facility] Hospital Repository PROCEDURES PROCEDURES No Procedure Records FoundRESULTS RESULTS LOWER EXT JOINT ONLY Observed: 12/13/2017 Status: F Source: [place] (ROUTINE) 9:40 AM [facility]ITALIm[facility] [address] [place], [place] [address]Ucmsx Ext Joint Only (Routine)MR#: [id number] Acct: [id number]: ALISHA AG Rep #: [id number]: 1955 F 62 From: Salvatore Neal MDPCP: Mariana James DO Status: REG CLIStudy: Lower Ext Joint Only (Routine) Date of Exam: 12/13/17Exam# [id number] Ordering Dr: Mariana Chau MANAGER CASE MANAGEMENT-CSTUDY: MRI LEFT HIPREASON FOR EXAM: Hip, groin [...] tissue structures of the pelvis. ORDER #: [id number] MRI/Lower Ext Joint Only (Routine)IMPRESSION:Mild left hip arthrosis.Mild left iliopsoas bursitis.Electronically Signed:Salvatore Neal MD at 13:04 EDTTel , Service support , NS: Mariana Chau; Mariana James DO Manager Sql:Signed LOWER EXT JOINT ONLY Observed: 12/13/2017 Status: F Source: [place] (ROUTINE) 9:39 AM [facility] REPOSITORY [facility] [address] [place], [place] [address]Ahexo Ext Joint Only (Routine)MR#: [id number] Acct: [id number]: ALISHA AG Rep #: [id number]: 1955 F 62 From: Salvatore Neal MDPCP: Mariana James DO Status: REG CLIStudy: Lower Ext Joint Only (Routine) Date of Exam: 12/13/17Exam# [id number] Ordering Dr: Mariana Chau MANAGER CASE MANAGEMENT-CSTUDY: MRI RIGHT HIPREASON FOR EXAM: Right hip [...] tissue structures of the pelvis. ORDER #: [id number] MRI/Lower Ext Joint Only (Routine)IMPRESSION:Mild right hip arthrosis.Electronically Signed:Salvatore Neal MD at 13:03 EDTTel , Service support , BV: Mariana Chau; Mariana James DO Manager Sql:Signed OT D/C SUMMARY Observed: 11/29/2017 Status: F Source: [place] 9:49 AM [facility] REPOSITORY [facility] HospitalOccupTelluride [facility] [facility] [address] [place] [address] [phone] [phone] FaxREHABILITATION SERVICESDISCHARGE SUMMARYMR#: [id number] Acct : [id number]: ALISHA AG Rep #: [id number]: 1955 62 [...] Improvement: 95- ObjectiveObjective/Function: pt demo a right autism motor specialist of 70# this was increase from 20#. right later pinch12# a increase from 4#. tripod pinch increase to 8# from 4#. right wrist ROM 55/65 pt demoright wrist ROM WNL and reports she is ind. with BADLs and IADLS.- GoalsPatient Goals: Regain Strength, Decrease Pain, Use Hand/Wrist/Arm Normally AgainGoal:: pt will demo a increase in right autism motor specialist stregnth to 40# or greater to increase [...] Status: F Source: [place] NON- 8:19 AM [facility] RE[facility]ITORY [facility] SYSTEMIm[facility] [address] [place] [address]Gfniyxsdtyur Non-MR#: [id number] Acct: [id number]: ALISHA AG Rep #: [id number]: 1955 F 62 From: Dean Chaudhry MDPCP: Mariana James DO Status: REG CLIStudy: Transvaginal Non- Date of Exam: 11/19/17Exam# [id number] Ordering Dr: Glory Deal MDSTUDY: ULTRASOUND TRANSVAGINALCLINICAL: Female, 62 years old. Postmenopausal bleeding, intermittent h3vydupf.TECHNIQUE: Transabdominal and transvaginal.COMPARISON: None. FINDINGS: Normal uterine [...] the pelvis.Polycystic ovary disease: No. ORDER #: [id number] US/ Transvaginal Non-IMPRESSION:Unremarkable exam.Electronically Signed:Dean Chaudhry MD at 9:55 EDTT , Service support , MJ: Glory Deal MD; Mariana James DO Manager Sql:Signed PELVIC (NON ) Observed: 11/19/2017 Status: F Source: [place] 8:19 AM [facility] REPOSITORY [facility] [address] [place] [address]Pilsjm (Non )MR#: [id number] Acct: [id number]: ALISHA AG Rep #: [id number]: 1955 F 62 From: Dean Chaudhry MDPCP: Mariana James DO Status: REG CLIStudy: Pelvic (Non ) Date of Exam: 11/19/17Exam# [id number] Ordering Dr: Glory Deal MDSTUDY: ULTRASOUND TRANSVAGINALCLINICAL: Female, 62 years old. Postmenopausal bleeding, intermittent w9zaemfb.TECHNIQUE: Transabdominal and transvaginal.COMPARISON: None. FINDINGS: Normal uterine [...] the pelvis.Polycystic ovary disease: No. ORDER #: [id number] US/Pelvic ( Non )IMPRESSION:Unremarkable exam.Electronically Signed:Dean Chaudhry MD at 9:55 [facility]Cos[facility] , Service support , VZ: Glory Deal MD; Mariana James DO Manager Sql:Signed OT GENERAL EVALUATION Observed: 11/14/2017 Status: F Source: [place] 9:51 AM [facility] REPOSITORY [facility] HospitalOccupational Therapy [address], [place] [phone] [phone] FaxREHABILITATION SERVICESINITIAL EVALUATIONMR#: [id number] Acct: [id number]: ALISHA AG Rep #: [id number]: 1955 62 From: Penny Waite OTR/L, CHTReferring Dr.: Luis Huffman DO Status: PRE RCRInsurance: [facility] *IN NETWORK Eval Date:SELF PAY INSURANCEPatient's Visit [...] BADLS and IADLS - - Pain right wrist/ibpf2Uxgf Intensity Range: 0, 3, 4- ROMWrist: right 45/50 left 55/70- StrengthGrip: right 20# left 70#Lateral Pinch: right 4# left 8#Tripod Pinch: right 4# left 10#- SensationSensation Comments: tingling in hand/fingers from neck- Hand/Wrist EvaluationTotal Score of Pain AND Functional Sections: 36- GoalsGoal:: pt will demo a increase in right autism motor specialist stregnth to 40# or greater to increase [...] to be FAXED BACK to us at [phone] for Medicare purposes.Please let me know if there are questions or concerns regarding this plan of care.Physician Signature: Date: &lt ;Electronically signed by Penny Waite OTR/NANNETTE Santiago> 11/14/17 0951CC: Mariana James DO; Luis Huffman DO DT: 11/14/17MKSignedFor Medicare only, by signing this I certify the plan of care. Physicians Signature Date OT GENERAL EVALUATION Observed: 11/14/2017 Status: F Source: [place] 9:34 AM [facility] REPOSITORY [facility] HospitalOccupational Therapy [address] [facility] [place] [address] [phone] [phone] FaxREHABILITATION SERVICESINITIAL EVALUATIONMR#: [id number] Acct: [id number]: ALISHA AG Rep #: [id number]: 1955 62 From: Penny Waite OTR/L, CHTReferring Dr.: Luis Huffman DO Status: PRE RCRInsurance: [facility] *IN NETWORK Eval Date:SELF PAY INSURANCEPatient's Visit [...] BADLS and IADLS - - Pain right wrist/wvhu8Fsyd Intensity Range: 0, 3, 4- ROMWrist: right 45/50 left 55/70- StrengthGrip: right 20# left 70#Lateral Pinch: right 4# left 8#Tripod Pinch: right 4# left 10#- SensationSensation Comments: tingling in hand/fingers from neck- Hand/Wrist EvaluationTotal Score of Pain AND Functional Sections: 36- GoalsGoal:: pt will demo a increase in right autism motor specialist stregnth to 40# or greater to increase [...] to be FAXED BACK to us at [phone] for Medicare purposes.Please let me know if there are questions or concerns regarding this plan of care.Physician Signature: Date: &lt ;Electronically signed by Penny GARCÍA/NANNETTE Santiago> 11/14/17 0934CC: Mariana James DO; Luis Huffman DO DT: 11/13/17MKSignedFor Medicare only, by signing this I certify the plan of care. Physicians Signature Date URGENT CARE VISIT Observed: 10/30/2017 Status: F Source: [place] REPORT 1:09 PM [facility] REPOSITORY Now [address] [phone] VISITDate of Service: 10/30/17MR#: [id number] Acct: [id number]: ALISHA AG Rep #: [id number]: 1955 Provider: Reinaldo Tyson/Sex: 62/F [facility].NOWStatus: Signed with AddendaADDENDUM by Reinaldo XIONG on [...] capsule 1,000 unit PO ONCE 07/31/17 [History Uatwqrkdp21/04/18]docusate sodium 50 mg capsule 50 mg PO QDAY 07/31/17 [History Confirmed 10/30/17]ferrous sulfate 325 mg (65 mg iron) tablet 325 mg PO TID tab 07/31/17 [History Iousbuddv55/04/18]garlic tablet 300 mg PO QDAY 07/31/17 [History Confirmed 10/30/17]ibuprofen 200 mg tablet 200 mg PO ONCE 10/13 [History Confirmed 10/30/17]lutein extract 15 mg-zeaxanthin extract 0.7 mg capsule cap PO 07/31/17 [History Libqgvjvx48/04/18]meclizine 25 mg tablet 25 mg PO BID [...] Appearance: average body habitusOrientation: alert, awake, oriented k5YLXBARfwo: normal to inspectionEars: hearing grossly normal bilaterally, [...] all the above.This note was generated with Bringg dictation software. It may contain incorrect words, spelling, and punctuation that were not noted in checking the note before signing.MedicationsNew:CodingLevel of Care CodeOff vis,est,level 3DiagnosesBronchitis P15Faxwnwgvi J32.904/11/13 1257 <Electronically signed by Reinaldo Gonzalez PA>Date Reinaldo Gonzalez PACosiclearsky rehabilitation hospital [facility] Signature: Date (if applicable)CC: PT D/C SUMMARY (2) Observed: 10/11/2017 Status: F Source: [place] 11:01 AM [facility] REPOSITORY [facility] HospitalPhysical Therapy [address] [facility] [place] [address] [phone] [phone] FaxREHABILITATION SERVICESDISCHARGE SUMMARYMR#: [id number] Acct : [id number]: ALISHA AG Rep #: [id number]: 1955 62 [...] therapy, please feel freeto call me at [phone]. Thank you for the referral of this patient.Sincerely,Monserrat David<Electronically signed by Monserrat David PT, Cert. MDT> 10/11/17 1101CC: Mariana James DO DT : 10/11/17JACSigned WRIST MIN 3 VIEWS Observed: 10/07/2017 Status: F Source: [place] 12:10 PM [facility] REPOSITORY [facility] [address] [place], [place] [address]Ypbum min 3 ViewsMR#: [id number] Acct: [id number]: ALISHA AG Rep #: [id number]: 1955 F 62 From: Dimitri Ordonez MDPCP: Mariana James DO Status: REG CLIStudy: Wrist min 3 Views Date of Exam: 10/07/17Exam# [id number] Ordering Dr: Derrick Anand DOSTUDY: X-RAY - RIGHT WRISTREASON FOR EXAM: Female, 62 years old. Pain following a recent fall.TECHNIQUE: 3 view(s) of the wrist were obtained.COMPARISON: None. FINDINGS:Normal visualized distal radius and ulna. Normal radiocarpal articulation.Normal distal radioulnar articulation. Normal carpal bones. Normalcarpal articulations.Normal carpometacarpal articulation of the thumb. Normal second throughfifth carpometacarpal articulations.Normal visualized metacarpal bones.Soft tissue swelling. ORDER #: [id number] RAD/Wrist min 3 ViewsIMPRESSION:Soft tissue swelling.Electronically Signed:Dimitri Ordonez MD at 12:35 [facility] [phone], Service support , FG: Mariana James DO; Derrick Anand DO Manager Sql:Signed HIP 2-3 VIEWS WITH Observed: 09/24/2017 Status: F Source: [place] PELVIS 11:28 AM [facility] REPOSITORY [facility] SYSTEMImaging [address] [place] [address]Yrh 2-3 Views with PelvisMR#: [id number] Acct: [id number]: ALISHA AG Rep #: [id number]: 1955 F 62 From: Kip Odell MDPCP: Mariana James DO Status: REG CLIStudy: Hip 2-3 Views with Pelvis Date of Exam: 09/24/17Exam# [id number] Ordering Dr: Mariana Chau MANAGER CASE MANAGEMENT-CSTUDY: X-RAY - PELVIS AND LEFT HIPREASON FOR [...] Normal acetabulum. Normal hip joint. ORDER #: [id number] RAD/Hip 2-3 Views with PelvisIMPRESSION:Normal x-ray examination of the pelvis and hip.Electronically Signed:Kip Odell MD at 17:15 ESTTel , Service support , LV: Mariana Chau; Mariana James DO Manager Sql:Signed INITIAL EVALUATION (2) Observed: 09/13/2017 Status: F Source: [place] - PT 8:54 AM [facility] REPOSITORY [facility] HospitalPhysical Therapy [address] [facility], [place] [phone] [phone] FaxREHABILITATION SERVICESINITIAL EVALUATIONMR#: [id number] Acct: [id number]: ALISHA AG Rep #: [id number]: 1955 62 [...] reports no LUE pain. Pt. reports no autism motor specialist weakness ordropping objects. Pt. is hopeful to decrease symptoms in order to sleep without pain and getback to [employer] skating without issues.- Pain R side of [...] 5/5 throughout; elbow- 5/5 throughout; shoulder5-/5 throughotu; autism motor specialist strength 83#, 80#, 81#. LUE- wrist/elbow 5/5 throughout; shoulder- 5-/5throughout; autism motor specialist strength- 75#, 71#, 73#.- Special TestsC/S Radiculapathy [...] to be FAXED BACK to us at [phone] for Medicare purposes.Please let me know if there are questions or concerns regarding this plan of care.Physician Signature: Date: &lt ;Elect ronically signed by Arcadio Weems DPT> 09/13/17 0854CC: Mariana James DO DT: 09/13/17CLSSignedFor Medicare only, by signing this I certify the plan of care. Physicians Signature Date CERV SPINE 4 OR 5 Observed: 09/02/2017 Status: F Source: [place] VIEWS 4:19 PM [facility] RE[facility]ORY [facility] SYSTEMIm[facility] [address] [place], [place] [address]Nybx Spine 4 or 5 ViewsMR#: [id number] Acct: [id number]: ALISHA AG Rep #: [id number]: 1955 F 62 From: Jeremiah Solis MDPCP: Mariana James DO Status: REG CLIStudy: Cerv Spine 4 or 5 Views Date of Exam: 09/02/17Exam# [id number] Ordering Dr: Malys, Mariana DOSTUDY: X-RAY - [...] soft tissue structures are unremarkable. ORDER #: [id number] RAD/Cerv Spine 4 or 5 ViewsIMPRESSION:C5-6 C6-7 degenerative diseaseElectronically Signed: Jeremiah Solis MD, MCMN4816/09/03 at 8:02 ESTTel , Service support , JH: Mariana James DO Manager Sql:Signed INITAL EVALUATION (1) Observed: 08/28/2017 Status: F Source: [place] - PT 1:45 PM [facility] REPOSITORY [facility] HospitalPhysical Therapy [address] [facility] [address] [place] [address] [phone] [phone] FaxREHABILITATION SERVICESINITIAL EVALUATIONMR#: [id number] Acct: [id number]: ALISHA AG Rep #: [id number]: 1955 62 From: Monserrat David PT, Cert. MDTReferring : Mariana James DO Status: REG RCRInsurance: [facility] *IN NETWORKSELF PAY INSURANCEPatient's Visit InformationMERSHIRIN [...] /10. Commenced as a resultof: FALL AT [employer]K WHILE ROLLARSKATING. Symptoms at onset: RIGHT GROIN [...] PAIN WITH RETURNFROM FULL FLEXION, EXT AND JACKLYN LEFT SG TESTING. Core strength: POOR. Palpation:TENDENERNESS [...] to be FAXED BACK to us at [phone] for Medicare purposes.Please let me know if there are questions or concerns regarding this plan of care.Physician Signature: Date: &lt ;Electronically signed by Monserrat David PT, Cert. MDT> 08/28/17 1345CC: Mariana James DO DT: 08/28/17JACSignedFor Medicare only, by signing this I certify the plan of care. Physicians Signature Date URGENT CARE VISIT Observed: 08/03/2017 Status: F Source: [place] REPORT 11:24 AM [facility] REPOSITORY Now [address] [phone] VISITDate of Service: 08/03/17MR#: [id number] Acct: [id number]: ALISHA AG Rep #: [id number]: 1955 Provider: Juan Manuel Tyson/Sex: 61/F Location: [facility].NOWStatus: SignedIntakeVital Signs08/03/17 Height 5 ft 1.5 inIntakeVisit [...] 1, 000 unit PO ONCE 07/31/17 [History Rktbdmfta03/06/18]docusate sodium 50 mg capsule 50 mg PO QDAY 07/31/17 [History Confirmed 08/03/17]ferrous sulfate 325 mg (65 mg iron ) tablet 325 mg PO TID tab 07/31/17 [History Hyettnscl97/06/18]garlic tablet 300 mg PO QDAY 07/31/17 [History [...] night. She has been usingher prescription of [place] for the pain which she states does [...] Bursitis of right hip, unspecified bursa M70.71; M70.26KexducLhndg9. Strain of right hip and thigh, initial [...] S76.011A ; S76.011A; S76.911A; S76.911AEncounter type: initial zxxawhctp30/06/18 1124 <Electronically signed by Juan Manuel XIONG>Date Juan Manuel Antonio Signature: Date (if applicable)CC: URGENT CARE VISIT Observed: 07/31/2017 Status: F Source: [place] REPORT 3:52 PM [facility] REPOSITORY Now [address] [phone] VISITDate of Service: 07/31/17MR#: [id number] Acct: [id number]: ALISHA AG Rep #: [id number]: 1955 Provider: Reinaldo Tyson/Sex: 61/F Location: [facility].NOWStatus: SignedIntakeVital Signs07/31/17 Height 5 ft 1.5 inIntakeVisit [...] capsule 1,000 unit PO ONCE 07/31/17 [History Zssoarhix38/03/18]docusate sodium 50 mg capsule 50 mg PO QDAY 07/31/17 [History Confirmed 07/31/17]ferrous sulfate 325 mg (65 mg iron) tablet 325 mg PO TID tab 07/31/17 [History Pdcanrlrx44/03/18]garlic tablet 300 mg PO QDAY 07/31/17 [History [...] Appearance: average body habitusOrientation: alert, awake, oriented e2UBRNXStnp: normal to inspection, normocephalic, atraumatic, no temporal [...] DetailOther MedicationsNew:CodingLevel of Care CodeOff vis,new,level 4DiagnosesVertigo H14OWOY (benign paroxysmal positional vertigo) H81. 1552 < Electronically signed by Reinaldo Gonzalez PA>Date Reinaldo Gonzalez PACosigner Signature: Date (if applicable)CC: DEXA BONE DENSITY Observed: 05/28/2017 Status: F Source: [place] STUDY () 10:55 AM [facility] REPOSITORY [facility] [address] [place], [place] [address]Fkhx Bone Density Study ()MR#: [id number] Acct: [id number]: ALISHA AG Rep #: [id number]: 1955 F 61 From: Dimitri Ordonez MDPCP: Mariana James DO Status: REG CLIStudy: Dexa Bone Density Study () Date of Exam: 05/28/17Exam# [id number] Ordering Dr: Derrick Anand DOSTUDY: DUAL ENERGY [...] represents a worsening of 0.4%. ORDER #: [id number] HPBD/Dexa Bone Density Study (HP)IMPRESSION:The patient is [...] [email or web address] Signed:Dimitri Ordonez MD at 13: 12 [facility] [phone], Service support , PJ: Mariana James DO; Derrick Anand DO Manager Sql:Signed FINGER(S) MIN 2 VIEWS Observed: 05/21/2017 Status: F Source: [place] 12:08 PM [facility] REPOSITORY [facility] SYSTEMImasinging [facility] [address] [place] [address]Mmgbft(s) Min 2 ViewsMR#: [id number] Acct: [id number]: ALISHA AG Rep #: [id number]: 1955 F 61 From: Henrique EwyPCP: Mariana James DO Status: REG CLIStudy: Finger(s) Min 2 Views Date of Exam: 05/21/17Exam# [id number] Ordering Dr: Derrick Anand DOSTUDY: X-RAY - LEFT HAND, ATTENTION FOURTH FINGERREASON FOR EXAM: Female, 61 years old. PainTECHNIQUE: 3 view(s) of the finger were obtained.COMPARISON: None. FINDINGS:Normal metacarpal head. Normal metacarpophalangeal joint.Normal proximal phalanx. Normal middle phalanx. Normal distal phalanx.Normal proximal interphalangeal joint. Normal distal interphalangealjoint.There is no demonstrated fracture. ORDER #: [id number] RAD/Finger(s) Min 2 ViewsIMPRESSION:Normal x-ray examination of the finger.No fracture.Electronically Signed:Henriquebrittany ChristyDO nabilaBG8957 at 19:04 EDTTel , Service support , IR: Mariana James DO; Derrick Anand DO Manager Sql:Signed SCREENING MAMM (CAD), Observed: 05/03/2017 Status: F Source: [place] BILAT 3:19 PM [facility] REPOSITORY [facility] SYSTEMIm[facility] [address] [place] [address]SZOEYSFVG MAMM (CAD), BILATMR#: [id number] Acct: [id number]: ALISHA AG Rep #: [id number]: 1955 F 61 From: Dimitri Ordonez MDPCP: Mariana James DO Status: REG CLIStudy: SCREENING MAMM (CAD), BILAT Date of Exam: 05/03/17Exam# [id number] Ordering Dr: Mariana James DOMAMMOGRAPHY - BILATERAL [...] change since the prior study. ORDER #: [id number] HPBI/SCREENING MAMM (CAD), BILATIMPRESSION:Stable bilateral screening mammogram. Yearly follow-up mammogramrecommended. (A) ASSESSMENT CATEGORY:BIRADS Category 1: Negative. A letter regarding these results will besent to the patient by the facility within 30 days.Approximately 10% of breast cancers are not detected by mammography. Anormal mammogram should not delay biopsy of a clinically suspiciousabnormality.[id number] Signed:Dimitri Ordonez MD at 8:45 EDTTel [phone], Service support , MY: Mariana James DO Manager Sql:Signed BILAT BRST SCREEN Observed: 05/03/2017 Status: F Source: [place] ANDREY ADD-ON 3:19 PM [facility] RE[facility] SYSTEMImasing[facility] [address] [place], [place] [address]Pkmas Brst Screen Andrey Add-OnMR#: [id number] Acct: [id number]: ALISHA AG Rep #: [id number]: 1955 F 61 From: Dimitri Ordonez MDPCP: Mariana James DO Status: REG CLIStudy: Bilat Brst Screen Andrey Add-On Date of Exam: 05/03/17Exam# [id number] Ordering Dr: Mariana James DOMAMMOGRAPHY - BILATERAL [...] change since the prior study. ORDER #: [id number] HPBI/Bilat Brst Screen Andrey Add-OnIMPRESSION:Stable bilateral screening mammogram. Yearly follow-up mammogramrecommended. (A) ASSESSMENT CATEGORY:BIRADS Category 1: Negative. A letter regarding these results will besent to the patient by the facility within 30 days.Approximately 10% of breast cancers are not detected by mammography. Anormal mammogram should not delay biopsy of a clinically suspiciousabnormality.[id number] Signed:Dimitri Ordonez MD at 8:45 [facility] [phone], Service support , DR: Mariana James DO Manager Sql:Signed Observed: 03/14/2017 Status: F Source: [place] CULTURE, URINE 1:36 PM [facility] REPOSITORY Urine CultureClinical correlation necessary, Possible skin contamination. ORGANISM 1: Coag Negative StaphColony Count 50,000-80,000 Coag Negative Staph: REACTION Benzylpenicillin NF >=0.5 R Cefoxitin *NF - Inducable Clindamycin Resistan - Gentamicin $ <=0.5 S Levofloxacin $ 0.25 S Nitrofurantoin $ 64 I Oxacillin NF <=0.25 S Rifampin $$ <=0.5 S Tetracycline NF 2 S Vancomycin $ 1 S(NF) indicates non-formulary drug at [facility]. Approval by Infectious Disease Specialist required before non- formulary drugs may be ordered and/or dispensed. * CLSI guidelines does not recommend testing of cephalosporins. This interpretation is deduced from Beta-lactam/penicillin results. Performed By: #### M100.0650 ####[facility] Ab[address]pd[address] [place], [address] ALLERGIES ALLERGIES DATE TYPE / CODE NAME / CODE REACTION SEVERITY SOURCE 10/30/2017 Drug bupropion Other Unknown [place] Allergy/[id number](S HCl/[id number]( [facility] NOM CT) RXNORM) Hospital Repository 10/30/2017 Drug amoxicillin/F00 Other Unknown [place] Allergy/964046117(S 5174892(RXNORM) [facility] CT) Hospital Repository 10/30/2017 Drug chocolate Unknown Unknown [place] Allergy/361352766(S flavor/[id number] [facility] CT) 93(RXNORM) Hospital Repository 10/30/2017 Miscellaneous cosmetics Unknown Unknown [place] Allergy/487177548([facility]) Hospital Repository 10/30/2017 Miscellaneous nuts Unknown Unknown [place] Allergy/292792192([facility]) Hospital Repository 02/06/2014 Drug bupropion Other [place] Allergy/034732831(S HCl/Z389374783( [facility] CT) RXNORM) Hospital Repository 02/06/2014 Drug amoxicillin/F00 Other [place] Allergy/121835649(S 1699291(RXNORM) [facility]) Hospital Repository ENCOUNTERS ENCOUNTERS ADMIT/DISCHARGE ACCOUNT ADMITTING ENCOUNTER LOCATION SOURCE NUMBER CLASS 12/13/2017 [id number] Ambulatory [place] [address] [facility] ing:MRI Repository 11/29/2017 [id number] Ambulatory [place] [address] [facility] ing:OT Repository 11/19/2017 [id number] Ambulatory [place] [address] [facility] ing:OPUS Repository 11/18/2017/ [id number] Ambulatory [place] [address] [facility] ing:OT Repository 10/30/2017/ [id number] Ambulatory BMSBuilding:B [place] 8 0 [facility] Repository 10/07/2017 [id number] Ambulatory [place] [address] [facility] ing:MTRAD Repository 09/24/2017 [id number] Ambulatory [place] [address] [facility] ing:HPRAD Repository 09/02/2017 [id number] Ambulatory [place] [address] [facility] ing:MTRAD Repository 08/03/2017/ [id number] Ambulatory BMSBuilding:B [place] 8 2 MS.NOW [facility] Hospital Repository 07/31/2017/ [id number] Ambulatory BMSBuilding:B [place] 8 2 MS.NOW [facility] Hospital Repository 05/28/2017 [id number] Ambulatory [place] [address] [facility] ing:BD Repository 05/21/2017 [id number] Ambulatory [place] [address] [facility] ing:MTRAD Repository 05/03/2017 [id number] Ambulatory [place] [address] [facility] ing:BI Repository 03/14/2017 [id number] Ambulatory [place] [address] [facility] ing:BFHLAB Repository PAYERS PAYERS ENCOUNTER GUARANTOR PAYER SUBSCRIBER SOURCE 12/13/2017 ALISHA [place] Primary ALISHA J [place] [id number] S Insurance:MYCARE CRSC FRANKDOB: Community [address] *IN [facility] [id number] Number: Repository [address]Udg: 330 [id number] [phone] () Date:[id number] CLAIMS DEPTPO [address] [address]AO: 12/13/2017 Secondary NOT GIVENUNK [place] Insurance:SELF PAY [facility] Number: Effective Repository Date:2017-12-04 11/29/2017 ALISHA Griffin Primary ALISHA J [place] [id number] S Insurance:MYCARE CRSC FRANKDOB: Community [address] *IN [facility] 0018-14-[place] Number: Repository [address]Hum: 330 [id number] [phone] () Date:0505-84-77FPYU CLAIMS DEPTPO [address] [place] [address]VL: 11/29/2017 Secondary NOT GIVENUNK [place] Insurance:SELF PAY [facility] Number: Effective Repository Date:2017-08-19 11/19/2017 ALISHA J Primary ALISHA J [place] [id number] S Insurance:MYCARE CRSC FRANKDOB: Community [address] *IN [facility] [id number] Number: Repository [address]Wyl: 330 [id number] [phone] (HP) Date:7250-90-85EPGN CLAIMS DEPTPO [address] [address]SH: 11/19/2017 Secondary NOT GIVENUNK [place] Insurance:SELF PAY [facility] Number: Effective Repository Date:2017-11-14 11/18/2017 ALISHA J Primary ALISHA J [place] [id number] [address] Insurance:MYCARE CRSC FRANKDOB: Community [address] *IN [facility] [id number] Number: Repository [address]Dkz: 330 [id number] [phone] (HP) Date:[id number] CLAIMS DEPTPO [address], [place] [address]NN: 11/18/2017 Secondary NOT GIVENUNK [place] Insurance:SELF PAY [facility] Number: Effective Repository Date:2017-11-18 10/30/2017 ALISHA J Primary ALISHA J [place] [id number] S Insurance:MYCARE CRSC FRANKDOB: Community [address] *IN [facility] [id number] [place] Number: Repository [address]Lbv: 330 [id number] [phone] (HP) Date:9568-62-73JYDV CLAIMS DEPTPO [address] [address]YS: 10/30/2017 Secondary NOT GIVENUNK [place] Insurance:SELF PAY [facility] Number: Effective Repository Date:2017-10-30 10/07/2017 ALISHA J Primary ALISHA J [place] [id number] S Insurance:MYCARE CRSC FRANKDOB: Community [address] *IN [facility] [id number] Number: Repository [address]Akf: 330 [id number] [phone] (HP) Date:4925-83-61ZTSA CLAIMS DEPTPO [address] [address]EF: 10/07/2017 Secondary NOT GIVENUNK [place] Insurance:SELF PAY [facility] Number: Effective Repository Date:2017-10-07 09/24/2017 ALISHA J Primary ALISHA J [place] [id number] S Insurance:MYCARE CRSC FRANKDOB: Community [address] *IN [facility] [id number] Number: Repository [address]Zcy: 330 [id number] [phone] (HP) Date:4726-08-92WKPF CLAIMS DEPTPO [address], [place] [address]LK: 09/24/2017 Secondary NOT GIVENUNK [place] Insurance:SELF PAY [facility] Number: Effective Repository Date:2017-09-24 09/02/2017 ALISHA J Primary ALISHA J [place] [id number] S Insurance:MYCARE CRSC FRANKDOB: Community [address] *IN [facility] [id number] Number: Repository [address]Yaj: 330 [id number] [phone] (HP) Date:2243-21-10XKRJ CLAIMS DEPTPO [address] [address]VF: 09/02/2017 Secondary NOT GIVENUNK [place] Insurance:SELF PAY [facility] Number: Effective Repository Date:2017-09-02 08/03/2017 ALISHA J Primary ALISHA J [place] [id number] S Insurance:MYCARE CRSC FRANKDOB: Community [address] *IN [facility] 1584-04-93OPOW[place] Number: Repository [address]Uhx: 330 [id number] [phone] (HP) Date:2540-15-87VIBA CLAIMS DEPTPO [address] [address]AZ: 08/03/2017 Secondary NOT GIVENUNK [place] Insurance:SELF PAY [facility] Number: Effective Repository Date:2017-08-03 07/31/2017 ALISHA Griffin Primary ALISHA J [place] [id number] S Insurance:MYCARE CRSC FRANKDOB: Community [address] *IN [facility] [id number] Number: Repository [address]Lzj: 330 [id number] [phone] (HP) Date:8134-98-09JKEN CLAIMS DEPTPO [address] [place] [address]FJ: 07/31/2017 Secondary NOT GIVENUNK [place] Insurance:SELF PAY [facility] Number: Effective Repository Date:2017-07-31 05/28/2017 ALISHA Griffin Primary ALISHA J [place] [id number] S Insurance:MYCARE CRSC FRANKDOB: Community [address] *IN [facility] [id number] Number: Repository [address]Wgw: 330 [id number] [phone] (HP) Date:7269-84-04ORJX CLAIMS DEPTPO [address] [place] [address]UP: 05/21/2017 ALISHA Griffin Primary ALISHA J [place] [id number] S Insurance:MYCARE CRSC FRANKDOB: Community [address] *IN [facility] [id number], [place] Number: Repository [address]Dle: 330 [id number] [phone] (HP) Date:5365-62-19XQPN CLAIMS DEPTPO [address], [place] [address]AQ: 05/03/2017 ALISHA Griffin Primary ALISHA J [place] [id number] S Insurance:MYCARE CRSC FRANKDOB: Community [address] *IN [facility] 2974-12-28[place], [place] Number: Repository [address]Kjk: 330 [id number] [phone] () Date:6870-13-73LAZK CLAIMS DEPTPO [address], [place] [address]BB: 03/14/2017 ALISHA Griffin Primary ALISHA [id number] S [facility] Community [address] *IN [employer] [id number], [place] Number: Repository [address]Icc: (233) [id number] [phone] () Date:8581-89-73PVBX CLAIMS DEPTPO [address], [place] [address]FZ:
== END 2017-11-18 19:00 | disposition home or self-care (01) ==
LOC: OT 12:00
PROVIDERS: Family Provider Family Medicine; PCP Family Medicine; Visit Provider Orthopaedic Surgery
DX: S60.211D Contusion of right wrist, subsequent encounter (principal)
CPT/HCPCS: 97035; 97166

== ENCOUNTER → 2017-11-19 08:16 | Outpatient (CLI) | payer MEDICARE, SELFPAY ==
--- NOTE | 2017-11-19 08:18 | US_ITS ---
STUDY: ULTRASOUND TRANSVAGINAL CLINICAL: Female, 62 years old. Postmenopausal bleeding, intermittent x2 months. TECHNIQUE: Transabdominal and transvaginal. COMPARISON: None. FINDINGS: Normal uterine size measuring 6.0 x 3.6 x 2.2 cm. There are no myometrial masses. Normal endometrial thickness measuring 3.0 mm. There are no endometrial masses, and there is no fluid in the endometrial cavity. Normal uterine cervix. Normal right ovary, measuring 1.1 x 0.9 x 0.7 cm. There are multiple follicles without a dominant cyst. Normal left ovary, measuring 1.8 x 1.0 x 0.8 cm. There are multiple follicles without a dominant cyst. There is no free fluid in the pelvis. Polycystic ovary disease: No. US/Pelvic (Non ) IMPRESSION: Unremarkable exam. Electronically Signed: Dean Chaudhry MD at 9:55 EDT , Service support ,
--- NOTE | 2017-11-19 08:19 | US_ITS ---
STUDY: ULTRASOUND TRANSVAGINAL CLINICAL: Female, 62 years old. Postmenopausal bleeding, intermittent x2 months. TECHNIQUE: Transabdominal and transvaginal. COMPARISON: None. FINDINGS: Normal uterine size measuring 6.0 x 3.6 x 2.2 cm. There are no myometrial masses. Normal endometrial thickness measuring 3.0 mm. There are no endometrial masses, and there is no fluid in the endometrial cavity. Normal uterine cervix. Normal right ovary, measuring 1.1 x 0.9 x 0.7 cm. There are multiple follicles without a dominant cyst. Normal left ovary, measuring 1.8 x 1.0 x 0.8 cm. There are multiple follicles without a dominant cyst. There is no free fluid in the pelvis. Polycystic ovary disease: No. US/Transvaginal Non- IMPRESSION: Unremarkable exam. Electronically Signed: Dean Chaudhry MD at 9:55 EDT , Service support ,
== END ==
PROVIDERS: Family Provider Family Medicine; PCP Family Medicine; Visit Provider Family Medicine
DX: N95.0 Postmenopausal bleeding (principal)
CPT/HCPCS: 76830; 76856

== ENCOUNTER 2017-11-29 09:30 | Outpatient (RCR) | payer MEDICARE, SELFPAY ==
--- NOTE | 2017-08-28 13:45 | HP.PTEVAL_ITS ---
Patient's Visit Information ALISHA AG is a 62 year old F referred to Physical Therapy by DO ALBERT Shook with a diagnosis of RIGHT HIP PAIN. Date of Evaluation: 08/22/17 Physical Therapist: Monserrat David - Visit Plan Frequency: 2-3x /Week Duration: 4-6 Weeks Plan: POSTURE CORRECTION/STRENGTHENING, INSTRUCTION IN APPROPRIATE BODY MECHANICS AND ACTIVITY MODIFICATIONS. DLS STARTING WITH A NEUTRAL SPINE PROGRESSING ROM TOLERATED. JIM LE ROM, STRETCHING AND STRENGTHENING. HEP INSTRUCTION. - Subjective Subjective: Work/Leisure: UNEMPLOYEED. Disability: YES - BIPOLAR. SINCE ABOUT 3-4 YEARS AGO BU CAN'T REMEMBER FOR SURE. Present symptoms: JIM LBP. RIGHT ANTERIOR, LATERAL AND POSTERIOR RIGHT HIP, RIGHT THIGH, RIGHT LEG PAIN. TINGLING IN RIGHT CALF. NO FOOT SX. Present since: Jun. Pain Scale : WORST 7/10, LEAST 3/10. Currently: 5/10. Commenced as a result of: FALL AT [employer] WHILE ROLLARSKATING. Symptoms at onset: RIGHT GROIN AND RIGHT MEDIAL KNEE. Worse: SITTING, STANDING, MOVING, WALKING, PICKING UP THINGS, BENDING OVER, SITTING ON THE FLOOR, CRAWLING AROUND ON THE FLOOR, GETTING IN/OUT OF CAR, GOING UP STEPS, GETTING IN/OUT OF BATH TUB, SITTING ON THE TOLIET IS HORRIBLE, LEANING FORWARD IN SITTING. BENDING RIGHT KNEE. Better : NOT A LOT, TYLONOL. Disturbed sleep: YES. Previous history/Previous treatment: HISOTRY OF TEARS IN RIGHT KNEE AND HAS HAD ACL RECONSTRUCTION ON THE RIGHT. HISTORY OF JIM LE SCIATICA AND CHRONIC LBP. HAS HAD 5 OR SO SIDNEY'S IN HER LOW BACK THAT HELP SOME. DX'D WITH BURSITIS IN RIGHT HIP AND A WEEK LATER RECEIVED INJECTION (ABOUT 2 WEEKS AGO) BY DR. JORGE THAT DID HELP SOME OF THE PAIN FOR AWHILE BUT COMING BACK NOW. STOPPED NAPROXEN ABOUT 4 DAYS AGO AND PAIN IS GETTING WORSE. GOING TO SE DR. MONZON TOMORROW. Coughing/sneezing/ straining: NEGATIVE. Gait: I LIMP SOME AND SOMETIMES I WALK SLOWER. I FAVOR MY RIGHT LEG. NOT USING ANY ASSISTIVE DEVICES. Difficulty initiating urinatin: NO. Accidents: MULTIPLE FALLS ROLLAR SKATING OVER THE LAST 4 YEARS. HAS HIT HEAD, HAS BROKE RIB, AND LANDED ON BUTTOCKS. OTHER FALLS WELL. Unexplained weight loss: LOSING WEIGHT. ABOUT 10 LBS IN ABOUT 2 MONTHS DUE TO NOT EATING MUCH DUE TO STOMACH PAIN. STATES DR. MONZON KNOWS ABOUT HER STOMACH PAIN. Imaging: NO BACK OR RIGHT LE X-RAYS OR MRI SINCE THE FALL. PMH: DEPRESSIVE DISORDER, ASTHMA, GASTROESOPHAGEAL REFLUX DZ, ARTHRITIS, CONTI, LUMBAR RADICULOPATHY, OSTEOPENIA, INSOMNIA, DIARRHEA. Recent major surgery: RIGHT ACL RECONSTRUCTION - Pain RIGHT HAMSTRING AREA Pain Intensity (Out of 10): 1 Comment: AND RIGHT QUAD LOW BACK PAIN Pain Intensity (Out of 10): 1 RIGHT GROIN Pain Intensity (Out of 10): 0 LEFT GROIN Pain Intensity (Out of 10): 0 LEFT HAMSTRING AREA Pain Intensity (Out of 10): 0 RIGHT CALF Pain Intensity (Out of 10): 1 RIGHT MED ANKLE Pain Intensity (Out of 10): 1 - Objective Sitting Posture: POOR. Standing Posture: POOR. Lordosis: REDUCED. Lateral shift: NO. Relevant shift: N/A. Active Correction of posture: Other Observations: INDEP GAIT INTO PT WITHOUT AD OR GROSS DEVIATIONS NOTED. INDEP TRANSFER SIT TO STAND WITHOUT UE ASSIST. Motor deficit: JIM LE STRENGTH 5/5 WITH MMT EXCEPT RIGHT RIGHT HIP ER 3+/5 AND TESTING PROVOKES RIGHT LATERAL HIP PAIN. Sensory deficit: RIGHT MEDIAL CALF/JAUREGUI TENDERNESS BUT LIGHT TOUCH INTACT JIM LE'S. ROM deficit: JIM LE'S WFL'S. Dural Signs: POSITIVE RIGHT LE. Lumbar mvmt loss: flex - NIL. ext - JERONIMO. R SG - MOD. L SG - JERONIMO. PATIENT WITH C/O PAIN WITH RETURN FROM FULL FLEXION, EXT AND JACKLYN LEFT SG TESTING. Core strength: POOR. Palpation: TENDENERNESS WITH PALPATION OF LOWER LUMBAR REGION INTO SACRAL AREA AND RIGHT POSTERIOR AND LATERAL HIP. ALSO TENDER RIGHT MEDIAL JAUREGUI/CALF. - Goals Goal 1:: DECREASE C/O LOW BACK AND RIGHT LE SX'S Goal Time Frame: 4-6 Weeks Goal 2:: IMPROVE SITTING, STANDING, MOVING, WALKING, LIFTING, BENDING, TRANSFER , AND ADL FUNCTION Goal Time Frame: 4-6 Weeks Goal 3:: INSTRUCT IN PROPHYLAXIS Goal Time Frame: 4-6 Weeks - Rehabilitation Potential Rehabilitation Potential: Fair - Anticipated Interventions Patient/Client Instruction: Educate patient on: Condition, Plan of Care, Risk Factors, Benefits of Fitness Program For the Purpose of:: To improve self management Therapeutic Exercise to Include: Strength training, Body mechanics, Postural training, Flexibilty training, Dynamic Lumbar Stabilization For the Purpose of:: To improve ability of physical actions for home/community/ work/leisure Thank you for the opportunity to evaluate your patient. For Medicare and Medicare HMO plans, please review the plan of care and approve it. It will need to be FAXED BACK to us at [phone] for Medicare purposes. Please let me know if there are questions or concerns regarding this plan of care. Physician Signature: Date:
--- NOTE | 2017-09-13 08:53 | HP.PTEVAL2 ---
Patient's Visit Information ALISHA AG is a 62 year old F referred to Physical Therapy by DO RAMONA ShookALYS with a diagnosis of strain of muscle in neck, and R shoulder pain. Date of Evaluation: 09/10/17 Physical Therapist: Arcadio Weems - Visit Plan Frequency: 2x /Week Duration: 4 Weeks Plan: Start with cervical distractions, R UT and R levator scapulea stretching (light), DN to bilateral UT/levator scap/ cervical erector spinea. Initiate gental chin tucks and cervical retraction in supine once able to complete pain free. - Subjective Subjective: Pt. is here today for her initial evaluation with diagnosis of strain of muscle in neck, and R shoulder pain. Pt. reports having increased pain for ~2 months for unknown cause. She reports pain is greatest in her R side of her neck and shoulder, but does extend down her arm. Pt. reports having numbness in her R fingers, but unable to tell which ones. Pt. reports havign difficulty sleeping, has to sleep on right, normally a L sided sleeper. She reports R sided pain as a 1/10 currently, but does get upto a 4/10 at times. Pt. did have a recent neck Xray showing DDD at C5/C6 and C6/C7. Pt. reports lifting causes pain, looking up and down causes pain and rectraction causes pain, driving causes pain and has difficuly sleeping. Decreases pain: rest and ice. Pt. reports no LUE pain. Pt. 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 Pt. is hopeful to decrease symptoms in order to sleep without pain and get back to [employer] without issues. - Pain R side of cervical spine Intensity: 1 Pain Intensity Range: 0, 4 - Objective Objective: POSTURE: Pt. has FH positioning, rounded shoulders. Pt. is able to correct, but has increased pain with cervical retraction. Pt. has normal shoulder heights bilaterally. Mild increase in thoracic kyphosis. PALPATION: Pt. has increased tenderness at bilateral UT, bilateral levator scapulea, bilateral erector spine. Pt. has no pain at clavicles, or AC joints, and no pain at suboccipitals. Pt. has hypomobility noted at C5-T3 with spring testings and well as pain at C5-T1. No radidating of symptoms. NEUROLOGICAL: Pt. has normal sensation to light and sharp touch of bilateral UEs. Pt. +2 bilateral patellar and achilles DTR bilaterally. Pt. has no + upper limb testing. ROM: CERVICAL SPINE- flexion- min loss increase NE, ext mod loss increase nW, retraction mod loss increase NW, protraction NE, rotation min/nil loss NE bilaterally, SB min loss increase NW bilat. Pt. has full shoulder ROM bilaterally witout increase in symptoms. MMT- RUE- wrist 5/5 throughout; elbow- 5/5 throughout; shoulder 5-/5 throughotu; video game designer strength 83#, 80#, 81#. LUE- wrist/elbow 5/5 throughout; shoulder- 5-/5 throughout; video game designer strength- 75#, 71#, 73#. - Special Tests C/S Radiculapathy - Left Upper limb tension test: Negative C/S Radiculapathy - Right Upper limb tension test: Negative C/S Radiculapathy - Left Spurlings: Negative C/S Radiculapathy - Right Spurlings: Positive C/S Radiculapathy - Left Cervical distraction: Negative C/S Radiculapathy - Right Cervical distraction: Negative C/S Radiculapathy - Left Relief test: Negative C/S Radiculapathy - Right Relief test: Positive Sharp Nhi: Negative Vertebral Artery Test: Negative Alar Ligament Test: Negative Protrusion - Mechanical Response: No effect Protrusion - Symptoms During Testing: No effect Protrusion - Symptoms After Testing: No effect Retraction - Mechanical Response: No effect Retraction - Symptoms During Testing: Increases Retraction - Symptoms After Testing: No worse Retraction-Extension - Mechanical Response: No effect Retraction-Extension - Symptoms During Testing: Increases Retraction-Extension - Symptoms After Testing: No worse Sidebend Right - Mechanical Response: No effect Sidebend Right - Symptoms During Testing: No effect Sidebend Right - Symptoms After Testing: No effect Sidebend Left - Mechanical Response: No effect Sidebend Left - Symptoms During Testing: No effect Sidebend Left - Symptoms After Testing: Better Rotation Right - Mechanical Response: No effect Rotation Right - Symptoms During Testing: No effect Rotation Right - Symptoms After Testing: No effect Rotation Left - Mechanical Response: No effect Rotation Left - Symptoms During Testing: No effect Rotation Left - Symptoms After Testing: No effect Flexion - Mechanical Response: No effect Flexion - Symptoms During Testing: Increases Flexion - Symptoms After Testing: No worse - Goals Goal 1:: Pt. to be I with HEP. Goal Time Frame: 4-6 Weeks Goal 2:: Pt. to have increased cervical ROM by 25% without increase in symptoms. Goal Time Frame: 4-6 Weeks Goal 3:: Pt. to have no pain with sleeping allowing for increased quality of life. Goal Time Frame: 4-6 Weeks Goal 4:: Pt. to have 0-1/10 pain with all ADLs and recreational activities. Goal Time Frame: 4-6 Weeks Goal 5:: Pt. to demonstrate proper posture throughout PT sessions demonstrating improved postural awareness. Goal Time Frame: 4-6 Weeks - Rehabilitation Potential Physical Therapy Diagnosis: Pt. has signs and symptoms consistent with neck pain radiating into her RUE. SHe also has tight musculature of her R cervical spine and shoulder. She would benefit from PT to increase cervical ROM, decrease symptoms, improve posture and improve body mechanics. Rehabilitation Potential: Good - Anticipated Interventions Patient/Client Instruction: Educate patient on: Condition, Plan of Care, Risk Factors, Benefits of Fitness Program For the Purpose of:: To reduce risk of recurrence, To improve safety, To improve health and function, To foster healthy habits, To improve decision making, To facilitate caregiver knowledge, To improve self management, To prevent re-injury, To improve ability to perform tasks related to life management, To improve tolerance to ADL's Therapeutic Exercise to Include: Strength training, Power training, Postural training, Flexibilty training, Passive ROM, Active ROM, Lucretia Exercises, Scapular Strength/Stabilization For the Purpose of:: To decrease pain, To increase ROM, To improve nutrient delivery to tissue, To increase oxygenation perfusion, To improve muscle performance and motor function, To improve ability to perform ADL's, To increase tolerance to activity/condition/position, To improve health of tissue, To decrease soft tissue restriction, To increase flexibility/ROM Manual Therapy Techniques to Include: Mobilization, Passive ROM, Functional dry needling, Soft tissue mobilization For the Purpose of:: To decrease pain, To increase ROM, To improve nutrient delivery to tissue, To increase oxygenation perfusion, To improve muscle performance and motor function, To improve ability to perform ADL's, To decrease soft tissue restriction Thermo therapy (hot pack): Yes Ultrasound (thermal/non thermal): Yes For the Purpose of:: To decrease pain, To increase ROM, To improve health of tissue, To decrease soft tissue restriction, To increase flexibility/ROM Thank you for the opportunity to evaluate your patient. For Medicare and Medicare HMO plans, please review the plan of care and approve it. It will need to be FAXED BACK to us at [phone] for Medicare purposes. Please let me know if there are questions or concerns regarding this plan of care. Physician Signature: Date:
--- NOTE | 2017-10-11 11:01 | HP.PTDCS(2) ---
HP - PT D/C Summary (2) It has been my pleasure to treat ALISHA AG under orders from Mariana James DO, DR.LMALYS for the diagnosis of strain of muscle in neck, and R shoulder pain for a total of 11 visit(s). Discharge Date: Please see the following information for a summary of their discharge status. - Subjective Subjective: SEE PRIMARY CHART - Objective Objective/Function/Assessment: SEE PRIMARY CHART - Goals Patient Goals: Improve Mobility, Walk Normal, Improve ROM Goal 1:: Pt. to be I with HEP. Goal Progress: Goal Met Goal 2:: Pt. to have increased cervical ROM by 25% without increase in symptoms. Goal Progress: Goal Met Goal 3:: Pt. to have no pain with sleeping allowing for increased quality of life. Goal Progress: Goal Met Goal 4:: Pt. to have 0-1/10 pain with all ADLs and recreational activities. Goal Progress: Not Progressing Goal 5:: Pt. to demonstrate proper posture throughout PT sessions demonstrating improved postural awareness. Goal Progress: Progressing - Plan Plan: D/C - D/C Information If there are questions or concerns regarding this patient's physical therapy, please feel free to call me at [phone]. Thank you for the referral of this patient. Sincerely, Monserrat David
== END 2017-11-29 17:00 | disposition home or self-care (01) ==
LOC: OT 09:30
PROVIDERS: Family Provider Family Medicine; PCP Family Medicine; Visit Provider Family Medicine
DX: M25.551 Pain in right hip (principal); S16.1XXD Strain of muscle, fascia and tendon at neck level, subsequent encounter
CPT/HCPCS: 97014; 97035; 97110; 97113; 97140; 97162; 97530; G0283

== ENCOUNTER → 2017-12-13 09:30 | Outpatient (CLI) | payer MEDICARE, SELFPAY ==
--- NOTE | 2017-12-13 10:00 | MRI_ITS ---
STUDY: MRI RIGHT HIP REASON FOR EXAM: Right hip pain for several years. TECHNIQUE: Standardized fat and water weighted pulse sequences were obtained in all 3 orthogonal planes. COMPARISON: Radiographs 09/24/2017. FINDINGS: There is mild chondral thinning of the right hip joint (proton-density sagittal image 9). Normal acetabulum. Normal labrum. Normal femoral head. Normal femoral neck and intratrochanteric region. Normal gluteus minimus, medius and iliopsoas tendons and distal insertions. There is no trochanteric, iliopsoas or iliopectineal bursitis. Normal superior and inferior pubic rami. There are degenerative changes of the pubic symphysis. Normal ischial tuberosity. Normal origin of the hamstring tendons. Normal visualized iliac wing, sacroiliac joint, and sacral ala. Normal visualized soft tissue structures of the pelvis. MRI/Lower Ext Joint Only (Routine) IMPRESSION: Mild right hip arthrosis. Electronically Signed: Salvatore Neal MD at 13:03 EDT Tel , Service support ,
--- NOTE | 2017-12-13 10:45 | MRI_ITS ---
STUDY: MRI LEFT HIP REASON FOR EXAM: Hip, groin and buttock pain for several months, no specific injury. TECHNIQUE: Standardized fat and water weighted pulse sequences were obtained in all 3 orthogonal planes. COMPARISON: Radiographs 09/24/2017. FINDINGS: There is mild chondral thinning of the anterior superior left hip (proton-density sagittal image 10). Normal acetabulum. Normal labrum. Normal femoral head. Normal femoral neck and intratrochanteric region. There is mild persistence of red marrow in the left proximal femoral diaphysis (inversion recovery coronal images 16, 17). Normal gluteus minimus, medius and iliopsoas tendons and distal insertions. There is mild left iliopsoas bursitis (T2 axial images 14, 15; inversion recovery coronal image 21). Normal superior and inferior pubic rami. There are mild degenerative changes of the pubic symphysis. Normal ischial tuberosity. Normal origin of the hamstring tendons. Normal visualized iliac wing, sacroiliac joint, and sacral ala. Normal visualized soft tissue structures of the pelvis. MRI/Lower Ext Joint Only (Routine) IMPRESSION: Mild left hip arthrosis. Mild left iliopsoas bursitis. Electronically Signed: Salvatore Neal MD at 13:04 EDT Tel , Service support ,
== END ==
PROVIDERS: Family Provider Family Medicine; PCP Family Medicine; Visit Provider Nurse Practitioner Family
DX: M16.11 Unilateral primary osteoarthritis, right hip (principal); M16.12 Unilateral primary osteoarthritis, left hip; M25.551 Pain in right hip; M25.552 Pain in left hip
CPT/HCPCS: 73721

== ENCOUNTER → 2018-03-06 14:50 | Outpatient (CLI) | payer MEDICARE, SELFPAY ==
--- NOTE | 2018-03-06 15:00 | RAD_ITS ---
STUDY: X-RAY - RIGHT KNEE REASON FOR EXAM: Female, 62 years old. Right knee pain, mostly patellar anterior knee. Fall February 25, 2018. 1990 tear and surgery. TECHNIQUE: 4 view(s) of the knee. COMPARISON: 05/06/2015 right knee. FINDINGS: No change position interference metal screw status post ACL repair within the distal femur noted. No finding of acute displaced fracture, dislocation or radiopaque foreign body identified. No suprapatellar joint effusion identified. Moderate thickening distal quadriceps tendon suggested. Visualized bony joint spaces appear intact but severe medial/patellar femoral greater than lateral joint space narrowing, subchondral sclerosis and marginal osteophytosis noted. Visualized bony joint spaces appear intact. No abnormal soft tissue swelling/calcification or subcutaneous emphysema noted. Deformity proximal fibula appears unchanged indicating old fracture. RAD/Knee 4 or More Views IMPRESSION: Nonacute postsurgical right knee as described. Severe tricompartmental right knee. Electronically Signed: Denys Ling, at 15:29 EDT Tel , Service support ,
== END ==
PROVIDERS: Family Provider Family Medicine; PCP Family Medicine; Visit Provider Family Medicine
DX: M25.561 Pain in right knee (principal)
CPT/HCPCS: 73564

== ENCOUNTER → 2018-05-15 10:32 | Outpatient (CLI) | payer MEDICARE, SELFPAY ==
[2018-05-20 14:38] LABS: HPV Reflexed? NOT INDICATED
== END ==
PROVIDERS: Family Provider Family Medicine; PCP Family Medicine; Visit Provider Family Medicine
DX: Z12.4 Encounter for screening for malignant neoplasm of cervix (principal)
CPT/HCPCS: 88175; G0145

== ENCOUNTER 2018-05-30 09:03 | Day surgery (SDC) | payer MEDICARE, SELFPAY ==
[2018-05-30 09:25] VITALS: BP 157/86; PULSE 72; RESP 16; TEMP 36.4; O2SAT 98; BMI 27.8
--- NOTE | 2018-05-30 10:44 | H&P.OPEN ---
History of Present Illness Date of Admission: 05/30/18 The patient is a 62 year old F who presents for screening colonoscopy. The patient had a last colonoscopy 5 years ago. There were no polyps at that time. Patient was recommended to repeat due to history of polyps in her father. She is not having any abdominal pain or blood in her stool at this time. Past Medical/Surgical History - Planned Operation Planned Operative Procedure/s: cscope open access Date of Operative Procedure: 05/30/18 Permit Signed: No S.O.S: No Is This Patient Having a Total Joint: No - Previous Hospitalizations/Surgeries HX Hospitalizations: No HX of Surgeries: back injections. colonoscopy. right knee scope multiple times Any Problems With Anesthesia: Yes - nausea You/Your Family Experience Fever (Hyperthermia) With Anes: No Cholinesterase deficiency: No - Cardiovascular Hx Chest Pain within Last 2 months: No Hx of Irregular Heartbeat and/or Afib: No Hx Heart Attack: No Hx Congestive Heart Failure: No Hx Rheumatic Fever: No Hx Hypertension: No Hx Internal Defibrillator: No Hx Pacemaker: No Hx Cardiac Catheterization: No Hx Cardiac Surgery/Stents/Etc.: No Hx Stress Test: Yes - over 5 yrs ago HX Edema: No Hx Pain in Legs when Walking/Leg Cramps: Yes - cramps - Respiratory Chronic Cough: Yes HX of Shortness of Breath: Yes - sob with 2 flights of stairs Hx Chronic Obstructive Pulmonary Disease (COPD): No Hx Asthma: Yes - inhalers Hx Emphysema: No Hx Sleep Apnea: No Hx Oxygen Use at Home: No Hx Respiratory Tract Infection/Cold (presently): No Do You Snore Loudly (louder than talking or can be heard): No Do You Often Feel Tired/ Fatigued/ Sleepy Dring Daytime?: No Has Anyone Observed You Stop Breathing During Sleep?: No Result (for STOP score): Negative Hx Smoking: No Smoking Status: Never smoker - Gastrointestinal Hx Gastroesophageal Reflux: Yes Controlled With Meds: Yes Hx Gastrointestinal Disorders: Yes - ibs Hx Gastrointestinal Bleed: No Hx Ulcer: No Hx Hiatal Hernia: No Difficulty Chewing/Swallowing: No Recent Onset of Swallowing Problems: No Special diet followed at home: No Hx Unplanned Weight Loss of 20#: No HX Unplanned Weight Gain of 20#: No - Neurological Hx Seizures: No HX Syncope/Blackout Spells/Unconsciousness: Yes - syncope in the past/vertigo in the past Hx CVA/Stroke: No Hx Transient Ischemic Attacks (TIA): No Hx Multiple Sclerosis: No Hx Parkinson's Disease: No Hx Head/Neck Injury: No Hx Headaches: Yes - migraines Hx Back Injury/Pain: Yes - chronic back pain/ddd Recent Onset of Speech Difficulty: No Restless Legs: Yes Does patient have nerve stimulator: No Patient instructed to have device shut off: No Rep notified?: No - Blood Disorder Hx Leukemia: No Bleeding Tendencies: No Hx Deep Vein Thrombosis: No Hx High Cholesterol: No Blood Transmitted Disease: No Hx Hepatitis: No Hx Cirrhosis: No Hx Anemia: Yes - on iron Hx Blood Disorders: No - Reproduction : No Is Patient Lactating: No Hx Hysterectomy: No Hx Tubal Ligation: No Are You Post Menopause: Yes - Genitourinary Hx Renal Disease: No Hx Dialysis: No - Musculoskeletal Hx Arthritis: Yes Hx Rheumatoid Arthritis: No Hx Gout: No Recent Onset of an Orthopedic Problem: No - Endocrine Hx Diabetes: No Thyroid Disease: No Hx Steroid Therapy: No - Psycho/Social Hx Substance Use: No Hx Alcohol Use: No Hx Anxiety: Yes - on med Hx Depression: Yes - on med Mental Illness: No Hx Dementia: No - Miscellaneous Hx Cancer: No Recent Exposure to Contagious Disease: No Active MRSA: No Hx of C-Diff: No Any Loose Teeth: No Allergies chocolate flavor Allergy (Verified 05/28/18 12:11) Unknown amoxicillin [Amoxicillin] Adverse Reaction (Verified 05/28/18 12:11) Other bupropion HCl [From Wellbutrin] Adverse Reaction (Verified 05/28/18 12:11) Other morphine Adverse Reaction (Verified 05/28/18 12:11) Itching cosmetics Allergy (Uncoded 05/28/18 12:11) Unknown nuts Allergy (Uncoded 05/28/18 12:11) Unknown - Discharge Is Pt Admitted From a Half-Way, or a Longterm: No After D/C, Where Do you Plan to Go: Return Home - From the PAT History Number of Risk Factors: 5 - Physical Exam General: Alert, Oriented x3, Cooperative Lungs: Normal air movement Cardiovascular: Regular rate, Regular Rhythm Abdomen: Soft, Non Tender, Non-Distended Vital Signs Temp Pulse Resp BP Pulse Ox 97.6 F L 72 16 157/86 H 98 05/30/18 09:25 05/30/18 09:25 05/30/18 09:25 05/30/18 09:25 05/30/18 09:25 Oxygen Delivery Method Room Air Weight: 147 lb 11.355 oz Body Mass Index (BMI) 27.8 Assessment/Plan All Active Problems (Last Reviewed 10/30/17 @ 12:43 by Tiffany Lassiter) Bronchitis (Acute) Sinusitis (Acute) Bursitis of hip, right (Acute) Strain of right hip and thigh (Acute) BPPV (benign paroxysmal positional vertigo) (Acute) Vertigo (Acute) 62-year-old female for screening colonoscopy 1. I explained endoscopy in detail to the patient. I explained the risks including but not limited to stroke or heart attack with anesthesia, perforation of the GI tract, bleeding, infection. I explained that any of these could necessitate further emergency surgery. The patient understands and all questions were answered sufficiently. The patient wishes to proceed with procedure. Andrés Brizuela MD Pager: [facility] [address] [place] [address] [place] [address] Office: Surgery Risks - Colonoscopy Risks Include but are not Limited To: Risks include but are not limited to: Bleeding, perforation requiring further surgery, inability to complete colonoscopy requiring barium enema.
[2018-05-30 11:25] VITALS: BP 154/75; BP 157/86; PULSE 73; RESP 16; TEMP 36.5; O2SAT 100
--- NOTE | 2018-05-30 11:26 | OP.ENDO_ITS ---
Patient Name: Kim Estrada Procedure Date: 05/30/2018 10:38 AM Date of : 1955 Age: 62 Procedure: Colonoscopy Indications: Family history of colonic polyps in a first-degree relative Providers: Andrés Brizuela MD Referring MD: Andrés Brizuela MD Medicines: Monitored Anesthesia Care Patient Profile: This is a 62 year old female. Refer to note in patient chart for documentation of history and physical. Last Colonoscopy: 5 years ago. Complications: No immediate complications. Procedure: Pre-Anesthesia Assessment: - Prior to the procedure, a History and Physical was performed, and patient medications and allergies were reviewed. The patient's tolerance of previous anesthesia was also reviewed. The risks and benefits of the procedure and the sedation options and risks were discussed with the patient. All questions were answered, and informed consent was obtained. Prior Anticoagulants: The patient has taken no previous anticoagulant or antiplatelet agents. After reviewing the risks and benefits, the patient was deemed in satisfactory condition to undergo the procedure. After I obtained informed consent, the scope was passed under direct vision. Throughout the procedure, the patient's blood pressure, pulse, and oxygen saturations were monitored continuously. The pediatric colonoscope was introduced through the anus and advanced to the cecum, identified by the appendiceal orifice, ileocecal valve and palpation. The colonoscopy was performed without difficulty. The colonoscopy was performed with moderate difficulty due to a tortuous colon. Successful completion of the procedure was aided by changing the patient to a supine position. The patient tolerated the procedure well. The quality of the bowel preparation was good. Scope In: 10:52:44 AM Scope Withdrawal Time 0 hours 9 minutes 4 seconds Scope Out: 11:20:29 AM Total Procedure Duration Time 0 hours 27 minutes 45 seconds Findings: The entire examined colon appeared normal on direct and retroflexion views. Impression: - The entire examined colon is normal on direct and retroflexion views. - No specimens collected. Recommendation: - Discharge patient to home. - Resume previous diet. - Continue present medications. - Repeat colonoscopy in 10 years for surveillance. Procedure Code(s): --- Professional --- 50830, Colonoscopy, flexible; diagnostic, including collection of specimen(s) by brushing or washing, when performed (separate procedure) Diagnosis Code(s): --- Professional --- Z83.71, Family history of colonic polyps CPT copyright 2017 [employer]. All rights reserved. The codes documented in this report are preliminary and upon curb setter review may be revised to meet current compliance requirements. Andrés Brizuela MD 05/30/2018 11:26:01 AM This report has been signed electronically. Number of Addenda: 0 Note Initiated On: 05/30/2018 10:38 AM
[2018-05-30 11:30] VITALS: BP 144/80; BP 157/86; PULSE 71; RESP 16; O2SAT 100
[2018-05-30 11:35] VITALS: BP 148/89; BP 157/86; PULSE 73; RESP 16; O2SAT 100
[2018-05-30 11:40] VITALS: BP 155/74; BP 157/86; PULSE 70; RESP 16; TEMP 36.8; O2SAT 99
[2018-05-30 12:08] VITALS: BP 157/86
== END 2018-05-30 12:15 | disposition home or self-care (01) ==
LOC: EN 09:06 → AC 09:06
PROVIDERS: Family Provider Family Medicine; PCP Family Medicine; Referring Provider Surgery; Visit Provider Surgery
PROC: 0DJD8ZZ Inspection of Lower Intestinal Tract, Via Natural or Artificial Opening Endoscopic (ICD-10-PCS; CPT 45378; principal; 2018-05-30 10:40)
DX: Z12.11 Encounter for screening for malignant neoplasm of colon (principal); Z80.0 Family history of malignant neoplasm of digestive organs; K21.9 Gastro-esophageal reflux disease without esophagitis; D64.9 Anemia, unspecified; F41.9 Anxiety disorder, unspecified; F32.9 Major depressive disorder, single episode, unspecified; J45.909 Unspecified asthma, uncomplicated; Z79.51 Long term (current) use of inhaled steroids; Z79.899 Other long term (current) drug therapy
CPT/HCPCS: 45378; J7120

== ENCOUNTER → 2018-06-25 14:29 | Outpatient (CLI) | payer MEDICARE, SELFPAY ==
--- NOTE | 2018-06-25 14:31 | BI_ITS ---
MAMMOGRAPHY - BILATERAL SCREENING REASON FOR EXAM: Female, 62 years old. Routine annual screening examination. PERTINENT HISTORY: Non-contributory. Remote left excisional breast biopsy. TECHNIQUE: Digital bilateral breast fatmata (3D mammographic acquisition) in the CC and MLO projections. 2-D mediolateral oblique (MLO) and craniocaudad (CC) views of both breasts were obtained. CAD: Full Field Digital Mammography with Computer Added Detection was performed. COMPARISON: Comparison is made with prior study dated May 03, 2017 and April 09, 2016. FINDINGS: Breast Composition: The breasts are heterogeneously dense, which may obscure small masses. There are no dominant masses or suspicious calcifications. No other significant abnormalities are identified. There has been no significant change since the prior study. BI/SCREENING MAMM (CAD), BILAT IMPRESSION: Stable bilateral screening mammogram. Yearly follow-up mammogram recommended. (A) ASSESSMENT CATEGORY: BIRADS Category 1: Negative. A letter regarding these results will be sent to the patient by the facility within 30 days. Approximately 10% of breast cancers are not detected by mammography. A normal mammogram should not delay biopsy of a clinically suspicious abnormality. [id number] Electronically Signed: Dimitri Ordonez MD at 8:36 EST Tel [phone], Service support ,
--- OUTSIDE RECORDS SUMMARY | 2018-08-21 00:24 | XMS RPT_ITS ---
:1955 Author Organization OHIP Support Name Relationship Address Phone D Unavailable Unavailable Unavailable ESTELITA, RENEE Unavailable [address] + [place] [address] D Unavailable Unavailable Unavailable ESTELITA, RENEE Unavailable [address] + [place] [address] D Unavailable Unavailable Unavailable ESTELITA, RENEE Unavailable [address] + [place] [address] D Unavailable Unavailable Unavailable ESTELITA, RENEE Unavailable [address] + [place] [address] D Unavailable Unavailable Unavailable ESTELITA, RENEE Unavailable [address] + [place] [address] D Unavailable Unavailable Unavailable ESTELITA, RENEE Unavailable [address] + [place] [address] D Unavailable Unavailable Unavailable ESTELITA, RENEE Unavailable [address] + [place] [address] D Unavailable Unavailable Unavailable ESTELITA, RENEE Unavailable [address] + [place] [address] D Unavailable Unavailable Unavailable ESTELITA, RENEE Unavailable [address] + [place] [address] D Unavailable Unavailable Unavailable ESTELITA, RENEE Unavailable [address] + [place] [address] D Unavailable Unavailable Unavailable ESTELITA, RENEE Unavailable [address] + [place] [address] D Unavailable Unavailable Unavailable ESTELITA, RENEE Unavailable [address] + [place] [address] D Unavailable Unavailable Unavailable ESTELITA, RENEE Unavailable [address] + [place] [address] D Unavailable Unavailable Unavailable ESTELITA, RENEE Unavailable [address] + [place] [address] D Unavailable Unavailable Unavailable ESTELITA, RENEE Unavailable [address] + [place] [address] D Unavailable Unavailable Unavailable ESTELITA, RENEE Unavailable [address] + [place] [address] D Unavailable Unavailable Unavailable ESTELITA, RENEE Unavailable [address] + [place] [address] Care Team Providers Name Role Phone Juan Manuel Hassan Attending Unavailable Malys, Mariana Referring Unavailable Reinaldo Gonzalez Attending Unavailable Malys, Mariana Referring Unavailable Malys, Mariana Primary Care Unavailable Juan Manuel Hassan Attending Unavailable Malys, Mariana Referring Unavailable Malys, Mariana Primary Care Unavailable Malys, Mariana Attending Unavailable Malys, Mariana Primary Care Unavailable Malys, Mariana Referring Unavailable Malys, Mariana Attending Unavailable Malys, Mariana Referring Unavailable Malys, Mariana Primary Care Unavailable Prebish, Mariana SAP PP CONSULTANT-C Attending Unavailable Prebish, Mariana SAP PP CONSULTANT-C Referring Unavailable Malys, Mariana Primary Care Unavailable Derrick Anand Attending Unavailable Derrick Anand Referring Unavailable Malys, Mariana Primary Care Unavailable Reinaldo Gonzalez Attending Unavailable Malys, Mariana Referring Unavailable Malys, Mariana Primary Care Unavailable Catael, Glory Attending Unavailable Miedel, Glory Referring Unavailable Malys, Mariana Primary Care Unavailable Prebish, Mariana SAP PP CONSULTANT-C Attending Unavailable Prebish, Mariana SAP PP CONSULTANT-C Referring Unavailable Malys, Mariana Primary Care Unavailable Luis Huffman Attending Unavailable Luis Huffman Referring Unavailable Malys, Mariana Primary Care Unavailable Miedel, Glory Attending Unavailable Miedel, Glory Referring Unavailable Malys, Mariana Primary Care Unavailable Miedel, Glory Attending Unavailable Malys, Mariana Primary Care Unavailable Nurse, Surgery Attending Unavailable Malys, Mariana Referring Unavailable Andrés Brizuela Attending Unavailable Andrés Brizuela Referring Unavailable Malys, Mariana Primary Care Unavailable Andrés Brizuela Attending Unavailable Andrés Brizuela Referring Unavailable Malys, Mariana Primary Care Unavailable Andrés Brizuela Consulting Unavailable Miedel, Glory Attending Unavailable Mariana James Primary Care Unavailable PROBLEMS PROBLEMS DATE TYPE CONDITION / CODE ATTENDING STATUS SOURCE 03/06/2018 Unknown M25.561 - Pain in Glory Deal Active [facility] right knee / Community M25.561(ICD-10) Hospital Repository 12/13/2017 Unknown M25.552 - Pain in Prebish, Mariana Active [facility] left hip / [facility] CONSULTANT[facility] Community M25.552(ICD-10) Hospital Repository 12/13/2017 Unknown M16.11 - Unilateral Prebish, Mariana Active [facility] primary [facility] CONSULTANT[facility]C Community osteoarthritis, Hospital right hip / Repository M16.11(ICD-10) 12/13/2017 Unknown M16.12 - Unilateral Prebish, Mariana Active [facility] primary [facility] PP CONSULTANT-C Community osteoarthritis, left Hospital hip / M16.12(ICD-10) Repository 03/26/2018 Unknown M25.551 - Pain in Mariana James Active [facility] right hip / Community M25.551(ICD-10) Hospital Repository 11/19/2017 Unknown N95.0 - Glory Deal Active [facility] Postmenopausal Community bleeding / Hospital N95.0(ICD-10) Repository 09/02/2017 Unknown S16.1XXA - Strain of Mariana James Active [facility] muscle, fascia and Community tendon at neck Hospital level, initial Repository encounter / S16.1XXA(ICD-10) 07/31/2017 Unknown R42 - Dizziness and Reinaldo Gonzalez Active [facility] giddiness / Community R42(ICD-10) Hospital Repository 07/31/2017 Unknown H81.10 - Benign Reinaldo Gonzalez Active [facility] paroxysmal vertigo, Community unspecified ear / Hospital H81.10(ICD-10) Repository PROCEDURES PROCEDURES No Procedure Records FoundRESULTS RESULTS URGENT CARE VISIT Observed: 07/15/2018 Status: F Source: [place] REPORT 8:40 AM [facility] REPOSITORY [address] [address] OFFICE VISIT Date of Service: 07/14/18 MR#: [id number] Acct: [id number] Name: ALISHA ESTRADA Rep #: [id number] : 1955 Provider: Juan Manuel XIONG Age/Sex: 62/F Location: [facility] Status: Signed Intake Vital Signs07/14/18 Blood Pressure 122/86 H 07/14/18 Blood Pressure Location Lt brachial 07/14/18 Blood Pressure Position Sitting Intake Visit Reasons: SINUS INFECTION Chief Complaint: Sinus drainage, cough Credit Product Analyst Required: No Accompanied by: Self Is patient in pain?: No Allergies chocolate flavor Allergy (Verified 07/14/18 12:28) Unknown amoxicillin [Amoxicillin] Adverse Reaction (Verified 07/14/18 12:28) Other bupropion HCl [From Wellbutrin] Adverse Reaction (Verified 07/14/18 12:28) Other morphine Adverse Reaction (Verified 07/14/18 12:28) Itching cosmetics Allergy (Uncoded 07/14/18 12:28) Unknown nuts Allergy (Uncoded 07/14/18 12:28) Unknown Medications Lansoprazole [Prevacid] 15 mg PO DAILY 02/06/14 [History Confirmed 07/14/18] Montelukast [Singulair] 10 mg PO DAILY 02/06/14 [History Confirmed 07/14/18] Sumatriptan Succinate [Imitrex] 100 mg PO .X1 PRN 02/06/14 [History Confirmed 07/14/18] Venlafaxine HCl [Effexor] 75 mg PO BID 02/06/14 [History Confirmed 07/14/18] acetaminophen 325 mg tablet 500 mg PO Q6H PRN 07/31/17 [History Confirmed 07/14/18] ascorbic acid (vitamin C) 1,000 mg tablet 500 mg PO 4X/DAY 07/31/17 [History Confirmed 07/14/18] cholecalciferol (vitamin D3) 1,000 unit capsule 400 unit PO DAILY 07/31/17 [History Confirmed 07/14/18] docusate sodium 50 mg capsule 50 mg PO 4X/DAY 07/31/17 [History Confirmed 07/14/18] ferrous sulfate 325 mg (65 mg iron) tablet 65 mg PO DAILY tab 07/31/17 [History Confirmed 07/14/18] garlic tablet 1 tab PO BID 07/31/17 [History Confirmed 07/14/18] lutein extract 15 mg-zeaxanthin extract 0.7 mg capsule 1 cap PO BID 07/31/17 [History Confirmed 07/14/18] vitamin A 8,000 unit capsule 10,000 unit PO QDAY 07/31/17 [History Confirmed 07/14/18] vitamin B complex tablet 1 tab PO QDAY 07/31/17 [History Confirmed 07/14/18] vitamin E 200 unit capsule 400 unit PO QDAY 07/31/17 [History Confirmed 07/14/18] zinc acetate 25 mg (zinc) capsule 5 mg PO QDAY 07/31/17 [History Confirmed 07/14/18] Albuterol Inhaler [Ventolin Hfa (SP)] 1 - 2 puff INHALATION Q4H PRN PRN 05/28/18 [History Confirmed 07/14/18] Alendronate Sodium [Fosamax] 70 mg PO ESTRADA 05/28/18 [History Confirmed 07/14/18] Benzonatate 200 mg PO BID 05/28/18 [History Confirmed 07/14/18] Calcium Carbonate [Calcium] 600 mg PO BID 05/28/18 [History Confirmed 07/14/18] Cider Vinegar [Apple Cider Vinegar] 450 mg PO TID 05/28/18 [History Confirmed 07/14/18] Cinnamon Bark [Cinnamon] 1,000 mg PO DAILY 05/28/18 [History Confirmed 07/14/18] Copper Gluconate [Copper] 2 mg PO DAILY 05/28/18 [History Confirmed 07/14/18] Diclofenac [Voltaren] 75 mg PO DAILY 05/28/18 [History Confirmed 07/14/18] Fluticasone 220 Mcg [Flovent (SP)] 2 puff INHALATION DAILY 05/28/18 [History Confirmed 07/14/18] Gluc Estrada/Chondro Estrada A/Vit C/Mn [Glucosamine-Chondroitin Cap] 1 ea PO BID 05/28/18 [History Confirmed 07/14/18] Magnesium 250 mg PO BID 05/28/18 [History Confirmed 07/14/18] [place]-3 Fatty Acids/Fish Oil [[place] 3 1,000 mg Softgel] 1 ea PO BID 05/28/18 [History Confirmed 07/14/18] Potassium Citrate [Potassium Citrate ER] 10 meq PO DAILY 05/28/18 [History Confirmed 07/14/18] Turmeric Root Extract [Turmeric] 1,000 mg PO BID 05/28/18 [History Confirmed 07/14/18] Zeaxanthin 5 mg PO BID 05/28/18 [History Confirmed 07/14/18] triamcinolone acetonide 55 mcg nasal spray aerosol 2 spray INTRANASAL DAILY #10.8 ml 07/14/18 [Rx Confirmed 07/14/18] [facility] Medical History Arthritis (Acute) Asthma (Acute) Back pain (Acute) Difficulty balancing (Acute) Hay fever (Acute) Incontinence (Acute) Knee pain (Acute) child (Acute) Surgical History Hx of knee surgery (Acute) S/P breast lumpectomy (Acute) Social History Smoking Status: Never smoker alcohol intake: never HPI HPI Chief Complaint: Sinus drainage, cough Details: ALISHA ESTRADA, is a 62 F who presents to the office today for concern for possible sinusitis. Patient states that over the past 4 days she has had increasing nasal drainage as well as a burning type pain when she blows her nose. She does additionally report some minimal throat pain particularly in the morning which resolves throughout the day. Patient is concerned that she has a procedure upcoming and wants to make sure that she does not have a sinus infection. She denies fever, chills, sweats. No nausea, vomiting, diarrhea. She has had no headaches or jaw pain. No other associated symptoms or alleviating/aggravating factors. ROS Const Constitutional: No chills, fever(s), fatigue or abnormal sleep pattern ENT ENT: Positive for nasal discharge and nasal congestion; no sinus pain, facial pain, ear pain, sore throat or dental pain Resp Respiratory: No shortness of breath or chest congestion Cardio Cardiology: No chest pain at rest, chest pain with exertion or shortness of breath Skin Skin: No wounds or lesions Neuro Neurology: No behavioral changes or confusion Psych Psychiatric: No behavioral changes, No confusion, No abnormal sleep pattern Endo Endocrine: No fatigue Exam Const General: cooperative, healthy appearing [facility] Head: normocephalic, atraumatic Ears: hearing grossly normal bilaterally, TM's normal bilaterally, EAC's normal Nose: nasal discharge clear Face and sinus: face symmetric, normal facial exam Mouth: oral mucosae normal Throat: posterior oropharynx normal Eyes General: appearance normal, both eyes and all related structures Pupils: PERRL Resp Effort AND Inspection: normal respiratory effort Auscultation: Bilateral: Clear to Auscultation Cardio Palpation: normal PMI Rate: regular rate Rhythm: regular rhythm Skin General: no rashes or lesions noted Neuro General: alert, CN's II-XI intact bilaterally Psych Appearance: grossly normal Mental Status: mental status grossly normal Assessment AND Plan Problems 1. Nasal congestion with rhinorrhea J34.89 Status Acute Plan Encouraged to get plenty of rest, drink lots of clear liquids, and use Tylenol or Ibuprofen (unless contraindicated) for fever and comfort. Patient given a prescription for Nasacort today and also educated on other symptomatic management techniques. To be seen in 7-10 days if no improvement; sooner if worsening of symptoms. Advised of potential red flags and when appropriate to report to the ED. Patient verbalized understanding and agreement with all the above. Medications New: triamcinolone acetonide (Nasacort) administ2 sprays Intranasal DAILY 10.8 mL 0RF J32.9 er into each nostril Coding Level of Care Code Off vis,est,level 3 Diagnoses Nasal congestion with rhinorrhea J34.89 07/15/18 0840 <Electronically signed by Juan Manuel XIONG> Date Juan Manuel XIONG Cosigner Signature: Date (if applicable) CC: SCREENING MAMM (CAD), Observed: 06/25/2018 Status: F Source: [place] BILAT 2:31 PM [facility] REPOSITORY [facility] Imaging Services [address] [address] SCREENING MAMM (CAD), BILAT MR#: [id number] Acct: [id number] Name: ALISHA ESTRADA Rep #: [id number] : 1955 F 62 From: Dimitri Ordonez MD PCP: Mariana James DO Status: REG CLI Study: SCREENING MAMM (CAD), BILAT Date of Exam: 06/25/18 Exam# [id number] Ordering Dr: Glory Deal MD MAMMOGRAPHY - BILATERAL SCREENING REASON FOR EXAM: Female, 62 years old. Routine annual screening examination. PERTINENT HISTORY: Non-contributory. Remote left excisional breast biopsy. TECHNIQUE: Digital bilateral breast fatmata (3D mammographic acquisition) in the CC and MLO projections. 2-D mediolateral oblique (MLO) and craniocaudad (CC) views of both breasts were obtained. CAD: Full Field Digital Mammography with Computer Added Detection was performed. COMPARISON: Comparison is made with prior study dated May 03, 2017 and April 09, 2016. FINDINGS: Breast Composition: The breasts are heterogeneously dense, which may obscure small masses. There are no dominant masses or suspicious calcifications. No other significant abnormalities are identified. There has been no significant change since the prior study. BI/SCREENING MAMM (CAD), BILAT IMPRESSION: Stable bilateral screening mammogram. Yearly follow-up mammogram recommended. (A) ASSESSMENT CATEGORY: BIRADS Category 1: Negative. A letter regarding these results will be sent to the patient by the facility within 30 days. Approximately 10% of breast cancers are not detected by mammography. A normal mammogram should not delay biopsy of a clinically suspicious abnormality. [id number] Electronically Signed: Dimitri Ordonez MD at 8:36 EST Tel [phone], Service support , CC: Glory Deal MD; Mariana James DO [employer] Principal: Signed OPERATIVE REPORT - Observed: 05/30/2018 Status: F Source: [place] ENDOSCOPY 11:26 AM [facility] REPOSITORY [facility] Medical Records Department [address] [place] [id number] Operative Report - Endoscopy MR#: [id number] Acct: [id number] Name: ALISHA ESTRADA Rep #: [id number] : 1955 62 From: Andrés Brizuela MD PCP: Mariana James DO Status: REG [facility] Patient Name: Alisha Estrada Procedure Date: 05/30/2018 10:38 AM Date of : 1955 Age: 62 Procedure: Colonoscopy Indications: Family history of colonic polyps in a first-degree relative Providers: Andrés Brizuela MD Referring MD: Andrés Brizuela MD Medicines: Monitored Anesthesia Care Patient Profile: This is a 62 year old female. Refer to note in patient chart for documentation of history and physical. Last Colonoscopy: 5 years ago. Complications: No immediate complications. Procedure: Pre-Anesthesia Assessment: - Prior to the procedure, a History and Physical was performed, and patient medications and allergies were reviewed. The patient's tolerance of previous anesthesia was also reviewed. The risks and benefits of the procedure and the sedation options and risks were discussed with the patient. All questions were answered, and informed consent was obtained. Prior Anticoagulants: The patient has taken no previous anticoagulant or antiplatelet agents. After reviewing the risks and benefits, the patient was deemed in satisfactory condition to undergo the procedure. After I obtained informed consent, the scope was passed under direct vision. Throughout the procedure, the patient's blood pressure, pulse, and oxygen saturations were monitored continuously. The pediatric colonoscope was introduced through the anus and advanced to the cecum, identified by the appendiceal orifice, ileocecal valve and palpation. The colonoscopy was performed without difficulty. The colonoscopy was performed with moderate difficulty due to a tortuous colon. Successful completion of the procedure was aided by changing the patient to a supine position. The patient tolerated the procedure well. The quality of the bowel preparation was good. Scope In: 10:52:44 AM Scope Withdrawal Time 0 hours 9 minutes 4 seconds Scope Out: 11:20:29 AM Total Procedure Duration Time 0 hours 27 minutes 45 seconds Findings: The entire examined colon appeared normal on direct and retroflexion views. Impression: - The entire examined colon is normal on direct and retroflexion views. - No specimens collected. Recommendation: - Discharge patient to home. - Resume previous diet. - Continue present medications. - Repeat colonoscopy in 10 years for surveillance. Procedure Code(s): --- Professional --- 16394, Colonoscopy, flexible; diagnostic, including collection of specimen(s) by brushing or washing, when performed (separate procedure) Diagnosis Code(s): --- Professional --- Z83.71, Family history of colonic polyps CPT copyright 2017 [employer]. All rights reserved. The codes documented in this report are preliminary and upon photographic equipment inspector review may be revised to meet current compliance requirements. Andrés Brizuela MD 05/30/2018 11:26:01 AM This report has been signed electronically. Number of Addenda: 0 Note Initiated On: 05/30/2018 10:38 AM 05/30/18 1126 Date Andrés Brizuela MD Cosigner Signature: Date (if indicated) CC: Andrés Brizuela MD; Mariana James DO Date Dictated: 05/30/18 1038 Date Transcribed: [employer] Principal: SUSAN Signed HISTORY AND PHYSICAL Observed: 05/30/2018 Status: F Source: [facility] EXAM 10:46 AM [facility] REPOSITORY [facility] Medical Records Department [address] [place] [address] History and Physical 05/30/18 1044 MR#: [id number] Acct: [id number] Name: ALISHA ESTRADA Rep #: [id number] : 1955 62 From: Andrés Brizuela MD PCP: Mariana James DO Status: [facility] Y Location: [place] [address]-1 History of Present Illness Date of Admission: 05/30/18 The patient is a 62 year old F who presents for screening colonoscopy. The patient had a last colonoscopy 5 years ago. There were no polyps at that time. Patient was recommended to repeat due to history of polyps in her father. She is not having any abdominal pain or blood in her stool at this time. Past Medical/Surgical History - Planned Operation Planned Operative Procedure/s: cscope open access Date of Operative Procedure: 05/30/18 Permit Signed: No S.O.S: No Is This Patient Having a Total Joint: No - Previous Hospitalizations/Surgeries HX Hospitalizations: No HX of Surgeries: back injections. colonoscopy. right knee scope multiple times Any Problems With Anesthesia: Yes - nausea You/Your Family Experience Fever (Hyperthermia) With Anes: No Cholinesterase deficiency: No - Cardiovascular Hx Chest Pain within Last 2 months: No Hx of Irregular Heartbeat and/or Afib: No Hx Heart Attack: No Hx Congestive Heart Failure: No Hx Rheumatic Fever: No Hx Hypertension: No Hx Internal Defibrillator: No Hx Pacemaker: No Hx Cardiac Catheterization: No Hx Cardiac Surgery/Stents/Etc.: No Hx Stress Test: Yes - over 5 yrs ago HX Edema: No Hx Pain in Legs when Walking/Leg Cramps: Yes - cramps - Respiratory Chronic Cough: Yes HX of Shortness of Breath: Yes - sob with 2 flights of stairs Hx Chronic Obstructive Pulmonary Disease (COPD): No Hx Asthma: Yes - inhalers Hx Emphysema: No Hx Sleep Apnea: No Hx Oxygen Use at Home: No Hx Respiratory Tract Infection/Cold (presently): No Do You Snore Loudly (louder than talking or can be heard): No Do You Often Feel Tired/ Fatigued/ Sleepy Dring Daytime?: No Has Anyone Observed You Stop Breathing During Sleep?: No Result (for STOP score): Negative Hx Smoking: No Smoking Status: Never smoker - Gastrointestinal Hx Gastroesophageal Reflux: Yes Controlled With Meds: Yes Hx Gastrointestinal Disorders: Yes - ibs Hx Gastrointestinal Bleed: No Hx Ulcer: No Hx Hiatal Hernia: No Difficulty Chewing/Swallowing: No Recent Onset of Swallowing Problems: No Special diet followed at home: No Hx Unplanned Weight Loss of 20#: No HX Unplanned Weight Gain of 20#: No - Neurological Hx Seizures: No HX Syncope/Blackout Spells/Unconsciousness: Yes - syncope in the past/vertigo in the past Hx CVA/Stroke: No Hx Transient Ischemic Attacks (TIA): No Hx Multiple Sclerosis: No Hx Parkinson's Disease: No Hx Head/Neck Injury: No Hx Headaches: Yes - migraines Hx Back Injury/Pain: Yes - chronic back pain/ddd Recent Onset of Speech Difficulty: No Restless Legs: Yes Does patient have nerve stimulator: No Patient instructed to have device shut off: No Rep notified?: No - Blood Disorder Hx Leukemia: No Bleeding Tendencies: No Hx Deep Vein Thrombosis: No Hx High Cholesterol: No Blood Transmitted Disease: No Hx Hepatitis: No Hx Cirrhosis: No Hx Anemia: Yes - on iron Hx Blood Disorders: No - Reproduction : No Is Patient Lactating: No Hx Hysterectomy: No Hx Tubal Ligation: No Are You Post Menopause: Yes - Genitourinary Hx Renal Disease: No Hx Dialysis: No - Musculoskeletal Hx Arthritis: Yes Hx Rheumatoid Arthritis: No Hx Gout: No Recent Onset of an Orthopedic Problem: No - Endocrine Hx Diabetes: No Thyroid Disease: No Hx Steroid Therapy: No - Psycho/Social Hx Substance Use: No Hx Alcohol Use: No Hx Anxiety: Yes - on med Hx Depression: Yes - on med Mental Illness: No Hx Dementia: No - Miscellaneous Hx Cancer: No Recent Exposure to Contagious Disease: No Active MRSA: No Hx of C-Diff: No Any Loose Teeth: No Allergies chocolate flavor Allergy (Verified 05/28/18 12:11) Unknown amoxicillin [Amoxicillin] Adverse Reaction (Verified 05/28/18 12:11) Other bupropion HCl [From Wellbutrin] Adverse Reaction (Verified 05/28/18 12:11) Other morphine Adverse Reaction (Verified 05/28/18 12:11) Itching cosmetics Allergy (Uncoded 05/28/18 12:11) Unknown nuts Allergy (Uncoded 05/28/18 12:11) Unknown - Discharge Is Pt Admitted From a Long-Term, or a Shelter: No After D/C, Where Do you Plan to Go: Return Home - From the PAT History Number of Risk Factors: 5 - Physical Exam General: Alert, Oriented x3, Cooperative Lungs: Normal air movement Cardiovascular: Regular rate, Regular Rhythm Abdomen: Soft, Non Tender, Non-Distended Vital Signs Temp Pulse Resp BP Pulse Ox 97.6 F L 72 16 157/86 H 98 05/30/18 09:25 05/30/18 09:25 05/30/18 09:25 05/30/18 09:25 05/30/18 09:25 Oxygen Delivery Method Room Air Weight: 147 lb 11.355 oz Body Mass Index (BMI) 27.8 Assessment/Plan All Active Problems (Last Reviewed 10/30/17 @ 12:43 by Tiffany Lassiter) Bronchitis (Acute) Sinusitis (Acute) Bursitis of hip, right (Acute) Strain of right hip and thigh (Acute) BPPV (benign paroxysmal positional vertigo) (Acute) Vertigo (Acute) 62-year-old female for screening colonoscopy 1. I explained endoscopy in detail to the patient. I explained the risks including but not limited to stroke or heart attack with anesthesia, perforation of the GI tract, bleeding, infection. I explained that any of these could necessitate further emergency surgery. The patient understands and all questions were answered sufficiently. The patient wishes to proceed with procedure. Andrés Brizuela MD Pager: [facility] [address] [place] [address] [address] [place] [address] Office: Surgery Risks - Colonoscopy Risks Include but are not Limited To: Risks include but are not limited to: Bleeding, perforation requiring further surgery, inability to complete colonoscopy requiring barium enema. 05/30/18 1046 <Electronically signed by Andrés Brizuela MD> Date Andrés Brizuela MD Cosigner Signature: Date (if applicable) CC: Andrés Brizuela MD; Mariana James DO Signed PAP I-G W/RFX HRHPV Collected: 05/15/2018 Status: F Source: [place] 10:38 AM [facility] REPOSITORY Order Comment: Specimen Comment: No. of containers..01 ThinPrep Vial TYPE CODE TESTS RESULT OUT OF RANGE REFERENCE UNITS LAB L7400.0800 . Normal DIAGN Comment Result Comment: NEGATIVE FOR INTRAEPITHELIAL LESION AND MALIGNANCY. LAB L7400.0900 . Normal ADEQ Comment Result Comment: Satisfactory for evaluation. Endocervical and/or squamous metaplastic cells (endocervical component) are present. LAB L7400.1400 . Normal PERFORM Comment Result Comment: Ina Martinez, Landscape Crew Leader LAB L7400.0617 . Normal TEST METHOD Comment Result Comment: This liquid based ThinPrep(R) pap test was screened with the use of an image guided system. LAB L7400.2600 . Normal . COMM LAB L7400.2700 . Normal PAPSMR Comment Result Comment: The Pap smear is a screening test designed to aid in the detection of premalignant and malignant conditions of the uterine cervix. It is not a diagnostic procedure and should not be used as the sole means of detecting cervical cancer. Both false-positive and false-negative reports do occur. LAB L7400.2800 . Normal HPV RFLX Comment Result Comment: The HPV DNA reflex criteria were not met with this specimen result therefore, no HPV testing was performed. Performed at: [facility] [address] [id number] Ladle Operator: Pebbles Ansari MD, Phone: [phone] Performed By: #### L7400.0350 #### [facility] (refer to report for specific site) refer to report for address and phone number KNEE 4 OR MORE Observed: 03/06/2018 Status: F Source: [place] VIEWS 2:55 PM [facility] REPOSITORY [facility] Imaging Services [address] [place] [address] Knee 4 or More Views MR#: [id number] Acct: [id number] Name: ALISHA ESTRADA Rep #: [id number] : 1955 F 62 From: Denys Ling MD PCP: Mariana James DO Status: REG CLI Study: Knee 4 or More Views Date of Exam: 03/06/18 Exam# [id number] Ordering Dr: Glory Deal MD STUDY: X-RAY - RIGHT KNEE REASON FOR EXAM: Female, 62 years old. Right knee pain, mostly patellar anterior knee. Fall February 25, 2018. 1990 tear and surgery. TECHNIQUE: 4 view(s) of the knee. COMPARISON: 05/06/2015 right knee. FINDINGS: No change position interference metal screw status post ACL repair within the distal femur noted. No finding of acute displaced fracture, dislocation or radiopaque foreign body identified. No suprapatellar joint effusion identified. Moderate thickening distal quadriceps tendon suggested. Visualized bony joint spaces appear intact but severe medial/patellar femoral greater than lateral joint space narrowing, subchondral sclerosis and marginal osteophytosis noted. Visualized bony joint spaces appear intact. No abnormal soft tissue swelling/calcification or subcutaneous emphysema noted. Deformity proximal fibula appears unchanged indicating old fracture. RAD/Knee 4 or More Views IMPRESSION: Nonacute postsurgical right knee as described. Severe tricompartmental right knee. Electronically Signed: Denys Ling, at 15:29 EDT Tel , Service support , CC: Glory Deal MD; Mariana James DO [employer] Principal: Signed LOWER EXT JOINT ONLY Observed: 12/13/2017 Status: F Source: [place] (ROUTINE) 9:40 AM [facility] REPOSITORY [facility] Imaging Services [address] [place] [address] Lower Ext Joint Only (Routine) MR#: [id number] Acct: [id number] Name: ALISHA ESTRADA Rep #: [id number] : 1955 F 62 From: Salvatore Neal MD PCP: Mariana James DO Status: REG CLI Study: Lower Ext Joint Only (Routine) Date of Exam: 12/13/17 Exam# [id number] Ordering Dr: Mariana Chau SAP PP CONSULTANT-C STUDY: MRI LEFT HIP REASON FOR EXAM: Hip, groin and buttock pain for several months, no specific injury. TECHNIQUE: Standardized fat and water weighted pulse sequences were obtained in all 3 orthogonal planes. COMPARISON: Radiographs 09/24/2017. FINDINGS: There is mild chondral thinning of the anterior superior left hip (proton-density sagittal image 10). Normal acetabulum. Normal labrum. Normal femoral head. Normal femoral neck and intratrochanteric region. There is mild persistence of red marrow in the left proximal femoral diaphysis (inversion recovery coronal images 16, 17). Normal gluteus minimus, medius and iliopsoas tendons and distal insertions. There is mild left iliopsoas bursitis (T2 axial images 14, 15; inversion recovery coronal image 21). Normal superior and inferior pubic rami. There are mild degenerative changes of the pubic symphysis. Normal ischial tuberosity. Normal origin of the hamstring tendons. Normal visualized iliac wing, sacroiliac joint, and sacral ala. Normal visualized soft tissue structures of the pelvis. MRI/Lower Ext Joint Only (Routine) IMPRESSION: Mild left hip arthrosis. Mild left iliopsoas bursitis. Electronically Signed: Salvatore Neal MD at 13:04 EDT Tel , Service support , CC: Mariana Chau; Mariana James DO [employer] Principal: Signed LOWER EXT JOINT ONLY Observed: 12/13/2017 Status: F Source: [place] (ROUTINE) 9:39 AM [facility] REPOSITORY [facility] Imaging Services [address] [place] [address] Lower Ext Joint Only (Routine) MR#: [id number] Acct: [id number] Name: ALISHA ESTRADA Rep #: [id number] : 1955 F 62 From: Salvatore Neal MD PCP: Mariana James DO Status: REG CLI Study: Lower Ext Joint Only (Routine) Date of Exam: 12/13/17 Exam# [id number] Ordering Dr: Mariana Chau STUDY: MRI RIGHT HIP REASON FOR EXAM: Right hip pain for several years. TECHNIQUE: Standardized fat and water weighted pulse sequences were obtained in all 3 orthogonal planes. COMPARISON: Radiographs 09/24/2017. FINDINGS: There is mild chondral thinning of the right hip joint (proton-density sagittal image 9). Normal acetabulum. Normal labrum. Normal femoral head. Normal femoral neck and intratrochanteric region. Normal gluteus minimus, medius and iliopsoas tendons and distal insertions. There is no trochanteric, iliopsoas or iliopectineal bursitis. Normal superior and inferior pubic rami. There are degenerative changes of the pubic symphysis. Normal ischial tuberosity. Normal origin of the hamstring tendons. Normal visualized iliac wing, sacroiliac joint, and sacral ala. Normal visualized soft tissue structures of the pelvis. MRI/Lower Ext Joint Only (Routine) IMPRESSION: Mild right hip arthrosis. Electronically Signed: Salvatore Neal MD at 13:03 EDT Tel , Service support , CC: Mariana James DO [employer] Principal: Signed OT D/C SUMMARY Observed: 11/29/2017 Status: F Source: [place] 9:49 AM [facility] REPOSITORY [facility] Occupational Therapy Health[address] [place] [address] Fax REHABILITATION SERVICES DISCHARGE SUMMARY MR#: [id number] Acct: [id number] Name: ALISHA ESTRADA Rep #: [id number] : 1955 62 From: Penny GARCÍA/Jack, CHT Referring DrZheng: Luis Huffman DO Status: PRE RCR Eval Date: Discharge Date: HP - OT D/C Summary It has been my pleasure to treat ALISHA ESTRADA under orders from Luis Huffman, for the diagnosis of right wrist contusion for a total of 5 visit(s). Please see the following information for a summary of their discharge status. pt has progressed with with OT and reports she is ind. with all BADLs and IADLs. pt reports very little pain and is happy with her progress. - Overall Improvement % Improvement: 95 - Objective Objective/Function: pt demo a right archery equipment hay sorter of 70# this was increase from 20#. right later pinch 12# a increase from 4#. tripod pinch increase to 8# from 4#. right wrist ROM 55/65 pt demo right wrist ROM WNL and reports she is ind. with BADLs and IADLS. - Goals Patient Goals: Regain Strength, Decrease Pain, Use Hand/Wrist/Arm Normally Again Goal:: pt will demo a increase in right archery equipment hay sorter stregnth to 40# or greater to increase pts ind with BADLS and IADLs by d/c Goal:: pt will demo a functional ROM of right wrist eual to left with no c/o pain at end range for pt to perform BADls and IADLS at ind. level by d/c Goal:: pt will report no pain greater than 1/10 with functional use of pts right hand with BADLs and IADLS by d/c - Plan Plan: D/C - D/C Information Discharge Comments: Pt was seen for 5 OT visits- therapy services US and PRE- pt advise on Adj. he style of skate to decrease speed- pt demo understanding- pt reports ind. with all BADLS and IADLS. pt has met functional goals and is D/C at this time. If there are questions or concerns regarding this patient's occupational therapy, please fell free to call me at [phone]. Thank you for the referral of this patient. Sincerely, RICKY Godwin/Jack, CHT <Electronically signed by Penny GARCÍA/Jack, CHT> 11/29/17 0949 CC: Mariana James DO; Luis Huffman DO MK Signed TRANSVAGINAL Observed: 11/19/2017 Status: F Source: [place] NON- 8:19 AM [facility] REPOSITORY [facility] Imaging Services [address] [place] [address] Transvaginal Non- MR#: [id number] Acct: [id number] Name: ANCELMOALISHA Griffin Rep #: [id number] : 1955 F 62 From: Dean Chaudhry MD PCP: Mariana James DO Status: REG CLI Study: Transvaginal Non- Date of Exam: 11/19/17 Exam# [id number] Ordering Dr: Glory Deal MD STUDY: ULTRASOUND TRANSVAGINAL CLINICAL: Female, 62 years old. Postmenopausal bleeding, intermittent x2 months. TECHNIQUE: Transabdominal and transvaginal. COMPARISON: None. FINDINGS: Normal uterine size measuring 6.0 x 3.6 x 2.2 cm. There are no myometrial masses. Normal endometrial thickness measuring 3.0 mm. There are no endometrial masses, and there is no fluid in the endometrial cavity. Normal uterine cervix. Normal right ovary, measuring 1.1 x 0.9 x 0.7 cm. There are multiple follicles without a dominant cyst. Normal left ovary, measuring 1.8 x 1.0 x 0.8 cm. There are multiple follicles without a dominant cyst. There is no free fluid in the pelvis. Polycystic ovary disease: No. US/Transvaginal Non- IMPRESSION: Unremarkable exam. Electronically Signed: Dean Chaudhry MD at 9:55 EDT , Service support , CC: Glory Deal MD; Mariana James DO [employer] Principal: Signed PELVIC (NON ) Observed: 11/19/2017 Status: F Source: [place] 8:19 AM [facility] REPOSITORY [facility] Imaging Services [facility] [place] [address] Pelvic (Non ) MR#: [id number] Acct: [id number] Name: ALISHA ESTRADA Rep #: [id number] : 1955 F 62 From: Dean Chaudhry MD PCP: Mariana James DO Status: REG CLI Study: Pelvic (Non ) Date of Exam: 11/19/17 Exam# [id number] Ordering Dr: Glory Deal MD STUDY: ULTRASOUND TRANSVAGINAL CLINICAL: Female, 62 years old. Postmenopausal bleeding, intermittent x2 months. TECHNIQUE: Transabdominal and transvaginal. COMPARISON: None. FINDINGS: Normal uterine size measuring 6.0 x 3.6 x 2.2 cm. There are no myometrial masses. Normal endometrial thickness measuring 3.0 mm. There are no endometrial masses, and there is no fluid in the endometrial cavity. Normal uterine cervix. Normal right ovary, measuring 1.1 x 0.9 x 0.7 cm. There are multiple follicles without a dominant cyst. Normal left ovary, measuring 1.8 x 1.0 x 0.8 cm. There are multiple follicles without a dominant cyst. There is no free fluid in the pelvis. Polycystic ovary disease: No. US/Pelvic (Non ) IMPRESSION: Unremarkable exam. Electronically Signed: Dena Chaudhry MD at 9:55 EDT , Service support , CC: Glory Deal MD; Mariana James DO [employer] Principal: Signed OT GENERAL EVALUATION Observed: 11/14/2017 Status: F Source: [place] 9:51 AM [facility] REPOSITORY [facility] Occupational Therapy Health[address] [place] [address] Fax REHABILITATION SERVICES INITIAL EVALUATION MR#: [id number] Acct: [id number] Name: ALISHA ESTRADA Rep #: [id number] : 1955 62 From: Penny Waite OTR/L, CHT Referring DrZheng: Luis Huffman DO Status: PRE RCR Insurance: [facility] *IN NETWORK Eval Date: SELF PAY INSURANCE Patient's Visit Information ALISHA ESTRADA is a 62 year old F, referred to Occupational Therapy by Luis Huffman, with a diagnosis of right wrist contusion. Date of Evaluation: 11/13/17 Occupational Therapist: Penny Waite, OTR/L, CHT - Subjective Subjective: Pt states she was roller skating- 4 weeks ago and fell-pt states she did have an x-ray and no fx was reported- dx of a deep bone brusing- pt is right handed- and states she has pain with using her right hand with BADLS and IADLS - - Pain right wrist/hand 2 Pain Intensity Range: 0, 3, 4 - ROM Wrist: right 45/50 left 55/70 - Strength Side Panel Hanger: right 20# left 70# Lateral Pinch: right 4# left 8# Tripod Pinch: right 4# left 10# - Sensation Sensation Comments: tingling in hand/fingers from neck - Hand/Wrist Evaluation Total Score of Pain AND Functional Sections: 36 - Goals Goal:: pt will demo a increase in right archery equipment hay sorter stregnth to 40# or greater to increase pts ind with BADLS and IADLs by d/c Goal:: pt will demo a functional ROM of right wrist eual to left with no c/o pain at end range for pt to perform BADls and IADLS at ind. level by d/c Goal:: pt will report no pain greater than 1/10 with functional use of pts right hand with BADLs and IADLS by d/c - Rehabilitation General Assessment: pt demo a decrease in right wrist ROM and strength that limits pts ind. with BADSL and IADLS. Pt demo a need for skilled OTR/L, CHT services to rehab pt to her PLOF. Rehabilitation Potential: Good - Anticipated Interventions Anticipated Interventions: Strengthening - Visit Plan Frequency: 1-2x /Week Duration: 4 Months General Plan: OT services 1-2x week for 4 weeks- therapy will provide services to decrease pts pain and increase pts strength for a increase ind. with pts BADls and IADLS. TEXT: Thank you for the opportunity to evaluate your patient. For Medicare and Medicare HMO plans, please review the plan of care and approve it. It will need to be FAXED BACK to us at [phone] for Medicare purposes. Please let me know if there are questions or concerns regarding this plan of care. Physician Signature: Date: <Electronically signed by Penny MORROW CHT> 11/14/17 0951 CC: Mariana James DO; Luis Huffman DO MK Signed For Medicare only, by signing this I certify the plan of care. Physicians Signature Date OT GENERAL EVALUATION Observed: 11/14/2017 Status: F Source: [place] 9:34 AM [facility] REPOSITORY [facility] Occupational Therapy [facility] [address] [place] [address] Fax REHABILITATION SERVICES INITIAL EVALUATION MR#: [id number] Acct: [id number] Name: ALISHA ESTRADA Rep #: [id number] : 1955 62 From: Penny MORROW CHT Referring Dr.: Luis Huffman DO Status: PRE RCR Insurance: [facility] *IN NETWORK Eval Date: SELF PAY INSURANCE Patient's Visit Information ALISHA ESTRADA is a 62 year old F, referred to Occupational Therapy by Luis Huffman, with a diagnosis of right wrist contusion. Date of Evaluation: 11/13/17 Occupational Therapist: ODALYS Godwin CHT - Subjective Subjective: Pt states she was roller skating- 4 weeks ago and fell-pt states she did have an x-ray and no fx was reported- dx of a deep bone brusing- pt is right handed- and states she has pain with using her right hand with BADLS and IADLS - - Pain right wrist/hand 2 Pain Intensity Range: 0, 3, 4 - ROM Wrist: right 45/50 left 55/70 - Strength Side Panel Hanger: right 20# left 70# Lateral Pinch: right 4# left 8# Tripod Pinch: right 4# left 10# - Sensation Sensation Comments: tingling in hand/fingers from neck - Hand/Wrist Evaluation Total Score of Pain AND Functional Sections: 36 - Goals Goal:: pt will demo a increase in right archery equipment hay sorter stregnth to 40# or greater to increase pts ind with BADLS and IADLs by d/c Goal:: pt will demo a functional ROM of right wrist eual to left with no c/o pain at end range for pt to perform BADls and IADLS at ind. level by d/c Goal:: pt will report no pain greater than 1/10 with functional use of pts right hand with BADLs and IADLS by d/c - Rehabilitation General Assessment: pt demo a decrease in right wrist ROM and strength that limits pts ind. with BADSL and IADLS. Pt demo a need for skilled OTR/L, CHT services to rehab pt to her PLOF. Rehabilitation Potential: Good - Anticipated Interventions Anticipated Interventions: Strengthening - Visit Plan Frequency: 1-2x /Week Duration: 4 Months General Plan: OT services 1-2x week for 4 weeks- therapy will provide services to decrease pts pain and increase pts strength for a increase ind. with pts BADls and IADLS. TEXT: Thank you for the opportunity to evaluate your patient. For Medicare and Medicare HMO plans, please review the plan of care and approve it. It will need to be FAXED BACK to us at [phone] for Medicare purposes. Please let me know if there are questions or concerns regarding this plan of care. Physician Signature: Date: <Electronically signed by Penny Waite OTR/L, CHT> 11/14/17 0934 CC: Mariana James DO; Luis Huffman DO MK Signed For Medicare only, by signing this I certify the plan of care. Physicians Signature Date URGENT CARE VISIT Observed: 10/30/2017 Status: F Source: [place] REPORT 1:09 PM [facility] REPOSITORY [facility] [address] [place] [address] [address] [place] [address] OFFICE VISIT Date of Service: 10/30/17 MR#: [id number] Acct: [id number] Name: ALISHA ESTRADA Rep #: [id number] : 1955 Provider: Reinaldo XIONG Age/Sex: 62/F Location: [facility] Status: Signed with Addenda ADDENDUM by Reinaldo XIONG on 10/30/17 at 1308 Addendum entered and electronically signed by TYRESE Klein 10/30/17 13:08: Patient request, dextromethorphan was discontinued and was prescribed benzonatate to take as needed for cough. HPI Details: ALISHA ESTRADA, is a 62 F who presents to the office today for 10/30/17 1309 <Electronically signed by Reinaldo XIONG> Date Reinaldo Gonzalez cc: * Signed Intake Vital Signs10/30/17 Height 5 ft 1.5 in Intake Visit Reasons: SINUS INFECTION Chief Complaint: Sinus drainage, cough Is patient in pain?: No Allergies chocolate flavor Allergy (Verified 10/30/17 12:42) Unknown amoxicillin [Amoxicillin] Adverse Reaction (Verified 10/30/17 12:42) Other bupropion HCl [From Wellbutrin] Adverse Reaction (Verified 10/30/17 12:42) Other cosmetics Allergy (Uncoded 10/30/17 12:42) Unknown nuts Allergy (Uncoded 10/30/17 12:42) Unknown Medications Lansoprazole [Prevacid] 30 mg PO DAILY 02/06/14 [History Confirmed 10/30/17] Montelukast [Singulair] 10 mg PO DAILY 02/06/14 [History Confirmed 10/30/17] Sumatriptan Succinate [Imitrex] 100 mg PO .X1 PRN 02/06/14 [History Confirmed 10/30/17] Venlafaxine HCl [Effexor] 75 mg PO BID 02/06/14 [History Confirmed 10/30/17] acetaminophen 325 mg tablet 500 mg PO Q6H PRN 07/31/17 [History Confirmed 10/30/17] ascorbic acid (vitamin C) 1,000 mg tablet 1 g PO Q6H 07/31/17 [History Confirmed 10/30/17] cholecalciferol (vitamin D3) 1,000 unit capsule 1,000 unit PO ONCE 07/31/17 [History Confirmed 10/30/17] docusate sodium 50 mg capsule 50 mg PO QDAY 07/31/17 [History Confirmed 10/30/17] ferrous sulfate 325 mg (65 mg iron) tablet 325 mg PO TID tab 07/31/17 [History Confirmed 10/30/17] garlic tablet 300 mg PO QDAY 07/31/17 [History Confirmed 10/30/17] ibuprofen 200 mg tablet 200 mg PO ONCE 07/31/17 [History Confirmed 10/30/17] lutein extract 15 mg-zeaxanthin extract 0.7 mg capsule cap PO 07/31/17 [History Confirmed 10/30/17] meclizine 25 mg tablet 25 mg PO BID PRN #14 tab 07/31/17 [Rx Confirmed 10/30/17] vitamin A 8,000 unit capsule 8,000 unit PO QDAY 07/31/17 [History Confirmed 10/30/17] vitamin B complex tablet 1 tab PO QDAY 07/31/17 [History Confirmed 10/30/17] vitamin E 200 unit capsule 200 unit PO QDAY 07/31/17 [History Confirmed 10/30/17] zinc acetate 25 mg (zinc) capsule 25 mg PO QDAY 07/31/17 [History Confirmed 10/30/17] dextromethorphan polistirex ER 30 mg/5 mL oral susp ext.release 12hr 60 mg PO Q12H PRN #89 ml 10/30/17 [Rx Confirmed 10/30/17] [facility] Medical History Arthritis (Acute) Asthma (Acute) Back pain (Acute) Difficulty balancing (Acute) Hay fever (Acute) Incontinence (Acute) Knee pain (Acute) child (Acute) Surgical History Hx of knee surgery (Acute) S/P breast lumpectomy (Acute) Social History Smoking Status: Never smoker alcohol intake: never HPI HPI Chief Complaint: Sinus drainage, cough Details: ALISHA ESTRADA, is a 62 F who presents to the office today for initial evaluation 5 day history of postnasal drip and cough. She notes no complaints of fever, chills, sweats, rash, chest pain/shortness of breath, facial pressure. She is a non-smoker. She notes no other members in her household with similar signs or symptoms. She notes no other associated symptoms, no other alleviating or aggravating factors. ROS Const Constitutional: No excessive sweating, abnormal sleep pattern, chills, fever(s), night sweats or body ache Eyes Eyes: No change in vision ENT ENT: Positive for post nasal drip and sinus pressure; no ear pain, ear discharge, ear pressure, hearing loss, sinus pain, nasal congestion or sore throat Resp Respiratory: Positive for cough Cough: Yes non-productive; no chest congestion Cardio Cardiology: No excessive sweating, chest pain at rest, chest pain with exertion, shortness of breath, dyspnea on exertion, irregular heart rhythm, generalized swelling or leg pain with exertion Gastro GI: No abdominal pain, change in stool character or change in bowel habits Musc Musculoskeletal: No joint pain, back pain, limited range of motion, tingling or numbness Skin Skin: No rash Neuro Neurology: No tingling or numbness Psych Psychiatric: No abnormal sleep pattern Endo Endocrine: No excessive sweating, change in body appearance, cold intolerance or heat intolerance Aller/Imm Allergy/Immunologic: No food intolerance Iker/Lymp Hematologic/Lymphatic: No easy bruising Exam Const General: cooperative, healthy appearing, no acute distress, comfortable Nutritional Appearance: average body habitus Orientation: alert, awake, oriented x3 HENMT Head: normal to inspection Ears: hearing grossly normal bilaterally, external ears normal, TM's normal bilaterally, EAC's normal Nose: external nose normal, nares normal, septum normal, no nasal discharge Face and sinus: normal facial exam, sinuses nontender, face symmetric Mouth: oral mucosae normal, lip normal, tongue normal, oropharynx normal Teeth and gingiva: dentition normal, gingiva normal Throat: uvula midline, tonsils normal, posterior oropharynx normal, no postnasal drainage Eyes General: appearance normal, both eyes and all related structures Neck Neck: normal visual inspection, full ROM, no lymphadenopathy, no meningeal signs, supple Neck mass: No Thyroid: thyroid normal Lymphatic: no lymphadenopathy noted Chest Chest palpation AND inspection: normal inspection of the chest Resp Effort AND Inspection: normal respiratory effort, able to speak in complete sentences, symmetric chest movement, no cough (No unsolicited cough during today's exam) Auscultation: Bilateral: Clear to Auscultation Cardio Palpation: normal PMI Rate: regular rate Rhythm: regular rhythm Heart Sounds: S1 normal, S2 normal, no gallops, no murmurs, no rubs Pulses: radial pulses present GI Inspection: normal to inspection Palpation: soft Skin General: no rashes or lesions noted Neuro General: alert, awake, oriented x3, gait normal Cognition: normal cognition Speech: speech normal Gait: normal gait Motor: muscle tone normal throughout Sensory Exam: no sensory deficits noted Extrem General: normal to inspection Psych Appearance: grossly normal Mental Status: mental status grossly normal Mood: congruent mood Affect: normal affect Speech and Movement: speech and movement normal Attitude: cooperative Thought Process: normal Thought Content: normal Judgment: judgment good Assessment AND Plan Problems 1. Bronchitis J40 2. Sinusitis J32.9 Plan Dextromethorphan polistirex ER as prescribed today. Clear fluids, rest, Tylenol/ Claritin as needed for symptomatic relief. Follow-up with PCP in 5-7 days should symptoms not improve, sooner should symptoms worsen or any other concerns develop. Patient states acknowledging understanding all the above. This note was generated with [employer] dictation software. It may contain incorrect words, spelling, and punctuation that were not noted in checking the note before signing. Medications New: Coding Level of Care Code Off vis,est,level 3 Diagnoses Bronchitis J40 Sinusitis J32.9 10/30/17 1257 <Electronically signed by Reinaldo XIONG> Date Reinaldo Serna Signature: Date (if applicable) CC: PT D/C SUMMARY (2) Observed: 10/11/2017 Status: F Source: [place] 11:01 AM [facility] REPOSITORY [facility] Physical Therapy [facility] [address] [place] [address] Fax REHABILITATION SERVICES DISCHARGE SUMMARY MR#: [id number] Acct: [id number] Name: ALISHA ESTRADA Rep #: [id number] : 1955 62 From: Monserrat David PT, Cert. MDT Referring Dr.: Mariana James DO Status: REG RCR Insurance: [facility] *IN NETWORK SELF PAY INSURANCE HP - PT D/C Summary (2) It has been my pleasure to treat ALISHA ESTRADA under orders from Mariana James DO, LMALYS for the diagnosis of strain of muscle in neck, and R shoulder pain for a total of 11 visit(s). Discharge Date: Please see the following information for a summary of their discharge status. - Subjective Subjective: SEE PRIMARY CHART - Objective Objective/Function/Assessment: SEE PRIMARY CHART - Goals Patient Goals: Improve Mobility, Walk Normal, Improve ROM Goal 1:: Pt. to be I with HEP. Goal Progress: Goal Met Goal 2:: Pt. to have increased cervical ROM by 25% without increase in symptoms. Goal Progress: Goal Met Goal 3:: Pt. to have no pain with sleeping allowing for increased quality of life. Goal Progress: Goal Met Goal 4:: Pt. to have 0-1/10 pain with all ADLs and recreational activities. Goal Progress: Not Progressing Goal 5:: Pt. to demonstrate proper posture throughout PT sessions demonstrating improved postural awareness. Goal Progress: Progressing - Plan Plan: D/C - D/C Information If there are questions or concerns regarding this patient's physical therapy, please feel free to call me at [phone]. Thank you for the referral of this patient. Sincerely, Monserrat David <Electronically signed by Monserrat David PT, Cert. MDT> 10/11/17 1101 CC: Mariana James DO KERLINE Signed WRIST MIN 3 VIEWS Observed: 10/07/2017 Status: F Source: [place] 12:10 PM [facility] REPOSITORY [facility] Imaging Services [address] [place] [address] Wrist min 3 Views MR#: [id number] Acct: [id number] Name: ALISHA ESTRADA Rep #: [id number] : 1955 F 62 From: Dimitri Ordonez MD PCP: Mariana James DO Status: REG CLI Study: Wrist min 3 Views Date of Exam: 10/07/17 Exam# [id number] Ordering Dr: Derrick Anand DO STUDY: X-RAY - RIGHT WRIST REASON FOR EXAM: Female, 62 years old. Pain following a recent fall. TECHNIQUE: 3 view(s) of the wrist were obtained. COMPARISON: None. FINDINGS: Normal visualized distal radius and ulna. Normal radiocarpal articulation. Normal distal radioulnar articulation. Normal carpal bones. Normal carpal articulations. Normal carpometacarpal articulation of the thumb. Normal second through fifth carpometacarpal articulations. Normal visualized metacarpal bones. Soft tissue swelling. RAD/Wrist min 3 Views IMPRESSION: Soft tissue swelling. Electronically Signed: Dimitri Ordonez MD at 12:35 EDT Tel [phone], Service support , CC: Mariana James DO; Derrick Anand DO [employer] Principal: Signed HIP 2-3 VIEWS WITH Observed: 09/24/2017 Status: F Source: [place] [facility]VIS 11[facility] Imaging Services [address] [place] [address] Hip 2-3 Views with Pelvis MR#: [id number] Acct: [id number] Name: ALISHA ESTRADA Rep #: [id number] : 1955 F 62 From: Kip Odell MD PCP: Mariana James DO Status: REG CLI Study: Hip 2-3 Views with Pelvis Date of Exam: 09/24/17 Exam# [id number] Ordering Dr: Mariana Chau STUDY: X-RAY - PELVIS AND LEFT HIP REASON FOR EXAM: Female, 62 years old. PATIENT FELL IN JUNE. PAIN IN LEFT HIP AND GROIN AREA TECHNIQUE: Radiological exam, hip, unilateral, with pelvis when performed; 2 or 3 views. COMPARISON: None. FINDINGS: There is a non-specific bowel gas pattern. Normal visualized soft tissue structures. Normal bilateral iliac wings, sacroiliac joints and visualized sacrum. Normal bilateral superior and inferior pubic rami. Normal pubic symphysis. Normal bilateral ischial tuberosities. Normal visualized femoral head. Normal acetabulum. Normal hip joint. RAD/Hip 2-3 Views with Pelvis IMPRESSION: Normal x-ray examination of the pelvis and hip. Electronically Signed: Kip Odell MD at 17:15 EST , Service support , CC: Mariana Chau; Mariana James DO [employer] Principal: Signed INITIAL EVALUATION (2) Observed: 09/13/2017 Status: F Source: [place] - 8:54 AM [facility] REPOSITORY [facility] Physical Therapy [facility] [address] [place] [address]. [address] [place] [address] Fax REHABILITATION SERVICES INITIAL EVALUATION MR#: [id number] Acct: [id number] Name: ALISHA ESTRADA Rep #: [id number] : 1955 62 From: Arcadio Weems DPT Referring DrZheng: Mariana James DO Status: REG R Insurance: [facility] *IN NETWORK SELF PAY INSURANCE Patient's Visit Information ALISHA ESTRADA is a 62 year old F referred to Physical Therapy by DO ALBERT Shook with a diagnosis of strain of muscle in neck, and R shoulder pain. Date of Evaluation: 09/10/17 Physical Therapist: Arcadio Weems - Visit Plan Frequency: 2x /Week Duration: 4 Weeks Plan: Start with cervical distractions, R UT and R levator scapulea stretching (light), DN to bilateral UT/levator scap/ cervical erector spinea. Initiate gental chin tucks and cervical retraction in supine once able to complete pain free. - Subjective Subjective: Pt. is here today for her initial evaluation with diagnosis of strain of muscle in neck, and R shoulder pain. Pt. reports having increased pain for 2 months for unknown cause. She reports pain is greatest in her R side of her neck and shoulder, but does extend down her arm. Pt. reports having numbness in her R fingers, but unable to tell which ones. Pt. reports havign difficulty sleeping, has to sleep on right, normally a L sided sleeper. She reports R sided pain as a 1/10 currently, but does get upto a 4/10 at times. Pt. did have a recent neck Xray showing DDD at C5/C6 and C6/C7. Pt. reports lifting causes pain, looking up and down causes pain and rectraction causes pain, driving causes pain and has difficuly sleeping. Decreases pain: rest and ice. Pt. reports no LUE pain. Pt. 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 Pt. is hopeful to decrease symptoms in order to sleep without pain and get back to [employer] without issues. - Pain R side of cervical spine Intensity: 1 Pain Intensity Range: 0, 4 - Objective Objective: POSTURE: Pt. has FH positioning, rounded shoulders. Pt. is able to correct, but has increased pain with cervical retraction. Pt. has normal shoulder heights bilaterally. Mild increase in thoracic kyphosis. PALPATION: Pt. has increased tenderness at bilateral UT, bilateral levator scapulea, bilateral erector spine. Pt. has no pain at clavicles, or AC joints, and no pain at suboccipitals. Pt. has hypomobility noted at C5-T3 with spring testings and well as pain at C5-T1. No radidating of symptoms. NEUROLOGICAL: Pt. has normal sensation to light and sharp touch of bilateral UEs. Pt. +2 bilateral patellar and achilles DTR bilaterally. Pt. has no + upper limb testing. ROM: CERVICAL SPINE- flexion- min loss increase NE, ext mod loss increase nW, retraction mod loss increase NW, protraction NE, rotation min/nil loss NE bilaterally, SB min loss increase NW bilat. Pt. has full shoulder ROM bilaterally witout increase in symptoms. MMT- RUE- wrist 5/5 throughout; elbow- 5/5 throughout; shoulder 5-/5 throughotu; archery equipment hay sorter strength 83#, 80#, 81#. LUE- wrist/elbow 5/5 throughout; shoulder- 5-/5 throughout; archery equipment hay sorter strength- 75#, 71#, 73#. - Special Tests C/S Radiculapathy - Left Upper limb tension test: Negative C/S Radiculapathy - Right Upper limb tension test: Negative C/S Radiculapathy - Left Spurlings: Negative C/S Radiculapathy - Right Spurlings: Positive C/S Radiculapathy - Left Cervical distraction: Negative C/S Radiculapathy - Right Cervical distraction: Negative C/S Radiculapathy - Left Relief test: Negative C/S Radiculapathy - Right Relief test: Positive Sharp Nhi: Negative Vertebral Artery Test: Negative Alar Ligament Test: Negative Protrusion - Mechanical Response: No effect Protrusion - Symptoms During Testing: No effect Protrusion - Symptoms After Testing: No effect Retraction - Mechanical Response: No effect Retraction - Symptoms During Testing: Increases Retraction - Symptoms After Testing: No worse Retraction-Extension - Mechanical Response: No effect Retraction-Extension - Symptoms During Testing: Increases Retraction-Extension - Symptoms After Testing: No worse Sidebend Right - Mechanical Response: No effect Sidebend Right - Symptoms During Testing: No effect Sidebend Right - Symptoms After Testing: No effect Sidebend Left - Mechanical Response: No effect Sidebend Left - Symptoms During Testing: No effect Sidebend Left - Symptoms After Testing: Better Rotation Right - Mechanical Response: No effect Rotation Right - Symptoms During Testing: No effect Rotation Right - Symptoms After Testing: No effect Rotation Left - Mechanical Response: No effect Rotation Left - Symptoms During Testing: No effect Rotation Left - Symptoms After Testing: No effect Flexion - Mechanical Response: No effect Flexion - Symptoms During Testing: Increases Flexion - Symptoms After Testing: No worse - Goals Goal 1:: Pt. to be I with HEP. Goal Time Frame: 4-6 Weeks Goal 2:: Pt. to have increased cervical ROM by 25% without increase in symptoms. Goal Time Frame: 4-6 Weeks Goal 3:: Pt. to have no pain with sleeping allowing for increased quality of life. Goal Time Frame: 4-6 Weeks Goal 4:: Pt. to have 0-1/10 pain with all ADLs and recreational activities. Goal Time Frame: 4-6 Weeks Goal 5:: Pt. to demonstrate proper posture throughout PT sessions demonstrating improved postural awareness. Goal Time Frame: 4-6 Weeks - Rehabilitation Potential Physical Therapy Diagnosis: Pt. has signs and symptoms consistent with neck pain radiating into her RUE. SHe also has tight musculature of her R cervical spine and shoulder. She would benefit from PT to increase cervical ROM, decrease symptoms, improve posture and improve body mechanics. Rehabilitation Potential: Good - Anticipated Interventions Patient/Client Instruction: Educate patient on: Condition, Plan of Care, Risk Factors, Benefits of Fitness Program For the Purpose of:: To reduce risk of recurrence, To improve safety, To improve health and function, To foster healthy habits, To improve decision making, To facilitate caregiver knowledge, To improve self management, To prevent re-injury, To improve ability to perform tasks related to life management, To improve tolerance to ADL's Therapeutic Exercise to Include: Strength training, Power training, Postural training, Flexibilty training, Passive ROM, Active ROM, Lucretia Exercises, Scapular Strength/Stabilization For the Purpose of:: To decrease pain, To increase ROM, To improve nutrient delivery to tissue, To increase oxygenation perfusion, To improve muscle performance and motor function, To improve ability to perform ADL's, To increase tolerance to activity/condition/position, To improve health of tissue, To decrease soft tissue restriction, To increase flexibility/ROM Manual Therapy Techniques to Include: Mobilization, Passive ROM, Functional dry needling, Soft tissue mobilization For the Purpose of:: To decrease pain, To increase ROM, To improve nutrient delivery to tissue, To increase oxygenation perfusion, To improve muscle performance and motor function, To improve ability to perform ADL's, To decrease soft tissue restriction Thermo therapy (hot pack): Yes Ultrasound (thermal/non thermal): Yes For the Purpose of:: To decrease pain, To increase ROM, To improve health of tissue, To decrease soft tissue restriction, To increase flexibility/ROM Thank you for the opportunity to evaluate your patient. For Medicare and Medicare HMO plans, please review the plan of care and approve it. It will need to be FAXED BACK to us at [phone] for Medicare purposes. Please let me know if there are questions or concerns regarding this plan of care. Physician Signature: Date: <Electronically signed by Arcadio Weems DPT> 09/13/17 0854 CC: Mariana James DO CLS Signed For Medicare only, by signing this I certify the plan of care. Physicians Signature Date CERV SPINE 4 OR 5 Observed: 09/02/2017 Status: F Source: [place] VIEWS 4:19 PM [facility] REPOSITORY [facility] Imaging Services [address] [place] [address] Cerv Spine 4 or 5 Views MR#: [id number] Acct: [id number] Name: ANCELMOALISHA J Rep #: [id number] : 1955 F 62 From: Jeremiah Solis MD PCP: Mariana James DO Status: REG CLI Study: Cerv Spine 4 or 5 Views Date of Exam: 09/02/17 Exam# [id number] Ordering Dr: Mariana James DO STUDY: X-RAY - CERVICAL SPINE REASON FOR EXAM: Female, 62 years old. Neck pain TECHNIQUE: 6 view(s) of the cervical spine were obtained. COMPARISON: Prior comparison studies are not available for review at this time. FINDINGS: Normal anterior atlantoaxial articulation. Normal odontoid process. There is straightening of the normal cervical lordosis. Normal vertebral bodies. There is degenerative disc disease with disc space narrowing and anterior osteophyte formation at C5-6 and C6-7, with bilateral foraminal stenosis. The soft tissue structures are unremarkable. RAD/Cerv Spine 4 or 5 Views IMPRESSION: C5-6 C6-7 degenerative disease Electronically Signed: Jeremiah Solis MD, FACR at 8:02 EST , Service support , CC: Mariana James DO [employer] Principal: Signed INITAL EVALUATION (1) Observed: 08/28/2017 Status: F Source: [place] - PT 1:45 PM [facility] REPOSITORY [facility] Physical Therapy [facility] [address] [place] [address]. [address] [place], [place] [address] Fax REHABILITATION SERVICES INITIAL EVALUATION MR#: [id number] Acct: [id number] Name: ALISHA ESTRADA Rep #: [id number] : 1955 62 From: Monserrat David PT, Cert. T Referring DrZheng: Mariana James DO Status: REG RCR Insurance: [facility] *IN NETWORK SELF PAY INSURANCE Patient's Visit Information ALISHA ESTRADA is a 62 year old F referred to Physical Therapy by Mariana James DO DR.LMALYS with a diagnosis of RIGHT HIP PAIN. Date of Evaluation: 08/22/17 Physical Therapist: Monserrat David - Visit Plan Frequency: 2-3x /Week Duration: 4-6 Weeks Plan: POSTURE CORRECTION/STRENGTHENING, INSTRUCTION IN APPROPRIATE BODY MECHANICS AND ACTIVITY MODIFICATIONS. DLS STARTING WITH A NEUTRAL SPINE PROGRESSING ROM TOLERATED. JIM LE ROM, STRETCHING AND STRENGTHENING. HEP INSTRUCTION. - Subjective Subjective: Work/Leisure: UNEMPLOYEED. Disability: YES - BIPOLAR. SINCE ABOUT 3-4 YEARS AGO BU CAN'T REMEMBER FOR SURE. Present symptoms: JIM LBP. RIGHT ANTERIOR, LATERAL AND POSTERIOR RIGHT HIP, RIGHT THIGH, RIGHT LEG PAIN. TINGLING IN RIGHT CALF. NO FOOT SX. Present since: Jun. Pain Scale: WORST 7/10, LEAST 3/10. Currently: 12/05. Commenced as a result of: FALL AT [employer] WHILE ROLLARSKATING. Symptoms at onset: RIGHT GROIN AND RIGHT MEDIAL KNEE. Worse: SITTING, STANDING, MOVING, WALKING, PICKING UP THINGS, BENDING OVER, SITTING ON THE FLOOR, CRAWLING AROUND ON THE FLOOR, GETTING IN/OUT OF CAR, GOING UP STEPS, GETTING IN/OUT OF BATH TUB, SITTING ON THE TOLIET IS HORRIBLE, LEANING FORWARD IN SITTING. BENDING RIGHT KNEE. Better: NOT A LOT, TYLONOL. Disturbed sleep: YES. Previous history/Previous treatment: HISOTRY OF TEARS IN RIGHT KNEE AND HAS HAD ACL RECONSTRUCTION ON THE RIGHT. HISTORY OF JIM LE SCIATICA AND CHRONIC LBP. HAS HAD 5 OR SO SIDNEY'S IN HER LOW BACK THAT HELP SOME. DX'D WITH BURSITIS IN RIGHT HIP AND A WEEK LATER RECEIVED INJECTION (ABOUT 2 WEEKS AGO) BY DR. JORGE THAT DID HELP SOME OF THE PAIN FOR AWHILE BUT COMING BACK NOW. STOPPED NAPROXEN ABOUT 4 DAYS AGO AND PAIN IS GETTING WORSE. GOING TO SE DR. JAMES TOMORROW. Coughing/sneezing/straining: NEGATIVE. Gait: I LIMP SOME AND SOMETIMES I WALK SLOWER. I FAVOR MY RIGHT LEG. NOT USING ANY ASSISTIVE DEVICES. Difficulty initiating urinatin: NO. Accidents: MULTIPLE FALLS ROLLAR SKATING OVER THE LAST 4 YEARS. HAS HIT HEAD, HAS BROKE RIB, AND LANDED ON BUTTOCKS. OTHER FALLS WELL. Unexplained weight loss: LOSING WEIGHT. ABOUT 10 LBS IN ABOUT 2 MONTHS DUE TO NOT EATING MUCH DUE TO STOMACH PAIN. STATES DR. JAMES KNOWS ABOUT HER STOMACH PAIN. Imaging: NO BACK OR RIGHT LE X-RAYS OR MRI SINCE THE FALL. PMH: DEPRESSIVE DISORDER, ASTHMA, GASTROESOPHAGEAL REFLUX DZ, ARTHRITIS, CONTI, LUMBAR RADICULOPATHY, OSTEOPENIA, INSOMNIA, DIARRHEA. Recent major surgery: RIGHT ACL RECONSTRUCTION - Pain RIGHT HAMSTRING AREA Pain Intensity (Out of 10): 1 Comment: AND RIGHT QUAD LOW BACK PAIN Pain Intensity (Out of 10): 1 RIGHT GROIN Pain Intensity (Out of 10): 0 LEFT GROIN Pain Intensity (Out of 10): 0 LEFT HAMSTRING AREA Pain Intensity (Out of 10): 0 RIGHT CALF Pain Intensity (Out of 10): 1 RIGHT MED ANKLE Pain Intensity (Out of 10): 1 - Objective Sitting Posture: POOR. Standing Posture: POOR. Lordosis: REDUCED. Lateral shift: NO. Relevant shift: N/A. Active Correction of posture: Other Observations: INDEP GAIT INTO PT WITHOUT AD OR GROSS DEVIATIONS NOTED. INDEP TRANSFER SIT TO STAND WITHOUT UE ASSIST. Motor deficit: JIM LE STRENGTH 5/5 WITH MMT EXCEPT RIGHT RIGHT HIP ER 3+/5 AND TESTING PROVOKES RIGHT LATERAL HIP PAIN. Sensory deficit: RIGHT MEDIAL CALF/JAUREGUI TENDERNESS BUT LIGHT TOUCH INTACT JIM LE'S. ROM deficit: JIM LE'S WFL'S. Dural Signs: POSITIVE RIGHT LE. Lumbar mvmt loss: flex - NIL. ext - JERONIMO. R SG - MOD. L SG - JERONIMO. PATIENT WITH C/O PAIN WITH RETURN FROM FULL FLEXION, EXT AND JACKLYN LEFT SG TESTING. Core strength: POOR. Palpation: TENDENERNESS WITH PALPATION OF LOWER LUMBAR REGION INTO SACRAL AREA AND RIGHT POSTERIOR AND LATERAL HIP. ALSO TENDER RIGHT MEDIAL JAUREGUI/CALF. - Goals Goal 1:: DECREASE C/O LOW BACK AND RIGHT LE SX'S Goal Time Frame: 4-6 Weeks Goal 2:: IMPROVE SITTING, STANDING, MOVING, WALKING, LIFTING, BENDING, TRANSFER, AND ADL FUNCTION Goal Time Frame: 4-6 Weeks Goal 3:: INSTRUCT IN PROPHYLAXIS Goal Time Frame: 4-6 Weeks - Rehabilitation Potential Rehabilitation Potential: Fair - Anticipated Interventions Patient/Client Instruction: Educate patient on: Condition, Plan of Care, Risk Factors, Benefits of Fitness Program For the Purpose of:: To improve self management Therapeutic Exercise to Include: Strength training, Body mechanics, Postural training, Flexibilty training, Dynamic Lumbar Stabilization For the Purpose of:: To improve ability of physical actions for home/community/work/leisure Thank you for the opportunity to evaluate your patient. For Medicare and Medicare HMO plans, please review the plan of care and approve it. It will need to be FAXED BACK to us at [phone] for Medicare purposes. Please let me know if there are questions or concerns regarding this plan of care. Physician Signature: Date: <Electronically signed by Monserrat David PT, Cert. MDT> 08/28/17 1345 CC: Mariana James DO KERLINE Signed For Medicare only, by signing this I certify the plan of care. Physicians Signature Date URGENT CARE VISIT Observed: 08/03/2017 Status: F Source: [place] REPORT 11:24 AM [facility] REPOSITORY [facility] [address] [place] [address] OFFICE VISIT Date of Service: 08/03/17 MR#: [id number] Acct: [id number] Name: ALISHA ESTRADA Rep #: [id number] : 1955 Provider: Juan Manuel XIONG Age/Sex: 61/F Location: [facility] Status: Signed Intake Vital Signs08/03/17 Height 5 ft 1.5 in Intake Visit Reasons: PAIN IN RIGHT LEG Is patient in pain?: Yes Allergies chocolate flavor Allergy (Verified 08/03/17 10:50) Unknown amoxicillin [Amoxicillin] Adverse Reaction (Verified 08/03/17 10:50) Other bupropion HCl [From Wellbutrin] Adverse Reaction (Verified 08/03/17 10:50) Other cosmetics Allergy (Uncoded 08/03/17 10:50) Unknown nuts Allergy (Uncoded 08/03/17 10:50) Unknown Medications Lansoprazole [Prevacid] 30 mg PO DAILY 02/06/14 [History Confirmed 08/03/17] Montelukast [Singulair] 10 mg PO DAILY 02/06/14 [History Confirmed 08/03/17] Sumatriptan Succinate [Imitrex] 100 mg PO .X1 PRN 02/06/14 [History Confirmed 08/03/17] Venlafaxine HCl [Effexor] 75 mg PO BID 02/06/14 [History Confirmed 08/03/17] acetaminophen 325 mg tablet 500 mg PO Q6H PRN 07/31/17 [History Confirmed 08/03/17] ascorbic acid (vitamin C) 1,000 mg tablet 1 g PO Q6H 07/31/17 [History Confirmed 08/03/17] cholecalciferol (vitamin D3) 1,000 unit capsule 1,000 unit PO ONCE 07/31/17 [History Confirmed 08/03/17] docusate sodium 50 mg capsule 50 mg PO QDAY 07/31/17 [History Confirmed 08/03/17] ferrous sulfate 325 mg (65 mg iron) tablet 325 mg PO TID tab 07/31/17 [History Confirmed 08/03/17] garlic tablet 300 mg PO QDAY 07/31/17 [History Confirmed 08/03/17] ibuprofen 200 mg tablet 200 mg PO ONCE 07/31/17 [History Confirmed 08/03/17] lutein-zeaxanthin 15 mg-0.7 mg capsule cap PO 07/31/17 [History Confirmed 08/03/17] meclizine 25 mg tablet 25 mg PO BID PRN #14 tab 07/31/17 [Rx Confirmed 08/03/17] vitamin A 8,000 unit capsule 8,000 unit PO QDAY 07/31/17 [History Confirmed 08/03/17] vitamin B complex tablet 1 tab PO QDAY 07/31/17 [History Confirmed 08/03/17] vitamin E 200 unit capsule 200 unit PO QDAY 07/31/17 [History Confirmed 08/03/17] zinc acetate 25 mg (zinc) capsule 25 mg PO QDAY 07/31/17 [History Confirmed 08/03/17] cyclobenzaprine 5 mg tablet 5 mg PO TID PRN 10 Days #30 tab 08/03/17 [Rx Confirmed 08/03/17] methylprednisolone 4 mg tablets in a dose pack 4 mg PO PER PKG DIR 5 Days #21 tab 08/03/17 [Rx Confirmed 08/03/17] naproxen 250 mg tablet 250 mg PO TID 10 Days #30 tab 08/03/17 [Rx Confirmed 08/03/17] [facility] Medical History BPPV (benign paroxysmal positional vertigo) (Acute) Vertigo (Acute) Arthritis (Acute) Asthma (Acute) Back pain (Acute) Difficulty balancing (Acute) Hay fever (Acute) Incontinence (Acute) Knee pain (Acute) child (Acute) Surgical History Hx of knee surgery (Acute) S/P breast lumpectomy (Acute) Social History Smoking Status: Never smoker alcohol intake: never HPI PAIN IN RIGHT LEG: Details: ALISHA ESTRADA, is a 61 F who presents to the office today for right-sided hip pain. Patient states that approximately 2 weeks ago she was roller skating which she does on a regular basis and twisted her right leg and noticed immediate hip pain. She did not fall on it or have any other traumatic events however has had muscle soreness since that time. She states that the pain is made worse with pressure of lying on it at night. She has been using her prescription of [place] for the pain which she states does help. She denies any muscle weakness or loss in range of motion. She denies any numbness or tingling. She has had no issues with her ambulation. No loss of bowel or bladder function. No other associated symptoms or alleviating/aggravating factors. ROS Const Constitutional: No fever(s), body ache, chills or abnormal sleep pattern Resp Respiratory: No chest congestion or shortness of breath [employer] Musculoskeletal: Positive for joint pain; no abnormal walking, back pain, limited range of motion or muscle weakness Skin Skin: No wounds, skin swelling or sores Neuro Neurology: No abnormal walking or unsteady gait/balance Psych Psychiatric: No abnormal sleep pattern, No anxiety Exam Const General: cooperative, well developed Resp Effort AND Inspection: normal respiratory effort Auscultation: Bilateral: Clear to Auscultation Cardio Palpation: normal PMI Rate: regular rate Rhythm: regular rhythm Musc Musculoskeletal: Yes joint tenderness; no muscle weakness or decreased ROM Neuro General: alert, moves all extremities, CN's II-XI intact bilaterally Extrem General: full ROM Other: Pain elicited with palpation directly over the right trochanteric hip bursa. Patient continues to have full range of motion, strength and sensation. No deformity noted. Patient has normal nonantalgic gait. Psych Appearance: grossly normal Mood: congruent mood Assessment AND Plan Problems 1. Bursitis of right hip, unspecified bursa M70.71; M70.71 Status Acute 2. Strain of right hip and thigh, initial encounter S76.011A; S76.011A; S76.911A; S76.911A Status Acute Plan Patient advised to use ice and/or warm compresses to the area 3 times daily and to take medications as prescribed. Patient states that she does have follow-up with her orthopedic next week. Advised to follow-up sooner if symptoms worsen. Advised of potential red flags and when appropriate report to the ED. Patient verbalized understanding all of the above. Medications New: Discontinued: Coding Level of Care Code Off vis,est,level 3 Diagnoses Bursitis of right hip, unspecified bursa M70.71; M70.71 Hip bursitis location: unspecified Strain of right hip and thigh, initial encounter S76.011A; S76.011A; S76.911A; S76.911A Encounter type: initial encounter 08/03/17 1124 <Electronically signed by Juan Manuel XIONG> Date Juan Manuel XIONG Cosigner Signature: Date (if applicable) CC: URGENT CARE VISIT Observed: 07/31/2017 Status: F Source: [facility] 3:52 PM [facility] Now [address] [place] [address] OFFICE VISIT Date of Service: 07/31/17 MR#: [id number] Acct: [id number] Name: ALISHA ESTRADA Rep #: [id number] : 1955 Provider: Reinaldo XIONG Age/Sex: 61/F Location: [facility] [place]NOW Status: Signed Intake Vital Signs07/31/17 Height 5 ft 1.5 in Intake Visit Reasons: Vertigo Is patient in pain?: No Allergies chocolate flavor Allergy (Verified 07/31/17 15:31) Unknown amoxicillin [Amoxicillin] Adverse Reaction (Verified 02/06/14 05:02) Other bupropion HCl [From Wellbutrin] Adverse Reaction (Verified 02/06/14 05:02) Other cosmetics Allergy (Uncoded 07/31/17 15:31) Unknown nuts Allergy (Uncoded 07/31/17 15:31) Unknown Medications Celecoxib [Celebrex] 200 mg PO DAILY 02/06/14 [History Confirmed 07/31/17] Lansoprazole [Prevacid] 30 mg PO DAILY 02/06/14 [History Confirmed 07/31/17] Montelukast [Singulair] 10 mg PO DAILY 02/06/14 [History Confirmed 07/31/17] Sumatriptan Succinate [Imitrex] 100 mg PO .X1 PRN 02/06/14 [History Confirmed 07/31/17] Venlafaxine HCl [Effexor] 75 mg PO BID 02/06/14 [History Confirmed 07/31/17] acetaminophen 325 mg tablet 500 mg PO Q6H PRN 07/31/17 [History Confirmed 07/31/17] ascorbic acid (vitamin C) 1,000 mg tablet 1 g PO Q6H 07/31/17 [History Confirmed 07/31/17] cholecalciferol (vitamin D3) 1,000 unit capsule 1,000 unit PO ONCE 07/31/17 [History Confirmed 07/31/17] docusate sodium 50 mg capsule 50 mg PO QDAY 07/31/17 [History Confirmed 07/31/17] ferrous sulfate 325 mg (65 mg iron) tablet 325 mg PO TID tab 07/31/17 [History Confirmed 07/31/17] garlic tablet 300 mg PO QDAY 07/31/17 [History Confirmed 07/31/17] ibuprofen 200 mg tablet 200 mg PO ONCE 07/31/17 [History Confirmed 07/31/17] lutein-zeaxanthin 15 mg-0.7 mg capsule cap PO 07/31/17 [History Confirmed 07/31/17] meclizine 25 mg tablet 25 mg PO BID PRN #14 tab 07/31/17 [Rx] vitamin A 8,000 unit capsule 8,000 unit PO QDAY 07/31/17 [History Confirmed 07/31/17] vitamin B complex tablet 1 tab PO QDAY 07/31/17 [History Confirmed 07/31/17] vitamin E 200 unit capsule 200 unit PO QDAY 07/31/17 [History Confirmed 07/31/17] zinc acetate 25 mg (zinc) capsule 25 mg PO QDAY 07/31/17 [History Confirmed 07/31/17] PFSH Medical History BPPV (benign paroxysmal positional vertigo) (Acute) Vertigo (Acute) Arthritis (Acute) Asthma (Acute) Back pain (Acute) Difficulty balancing (Acute) Hay fever (Acute) Incontinence (Acute) Knee pain (Acute) child (Acute) Surgical History Hx of knee surgery (Acute) S/P breast lumpectomy (Acute) Social History Smoking Status: Never smoker alcohol intake: never HPI Vertigo: Chief Complaint: dizziness Details: ALSIHA ESTRADA, is a 61 F who presents to the office today for initial evaluation new onset dizziness times approximately 48 hours. Patient noted 2 evenings ago developed some some lightheadedness dizziness with mild nausea and emesis 1. She notes no recurrent emesis though continued mild nausea as well as lightheadedness dizziness which is exacerbated with position change and standing from sitting position. She states she has only been eating saltines over the last 24 hours to assist with nausea. She notes no recent changes in her current medication regimen. She notes no complaints of fever, chills, sweats, hearing changes, or sinus pressure. She notes no history of recent head trauma. She freely admits to drinking very few fluids, but was nonspecific otherwise. ROS Const Constitutional: No chills, fever(s), night sweats, body ache, decreased energy, malaise, frequent falls, weakness, abnormal sleep pattern, fatigue, headache(s) or excessive sweating Eyes Eyes: No change in vision or visual disturbances ENT ENT: Positive for post nasal drip and dizziness/vertigo; no abnormal hearing, ear pain, ear discharge, ear pressure, hearing loss, sinus pressure, headache(s), tinnitus, balance problems, nosebleed/epistaxis, nasal congestion, nasal obstruction, nose pain, sinus pain, nasal discharge, facial pain, dental pain or sore throat Resp Respiratory: No cough or chest congestion Cardio Cardiology: No excessive sweating, chest pain at rest, chest pain with exertion, shortness of breath, dyspnea on exertion, irregular heart rhythm, generalized swelling or leg pain with exertion Gastro GI: No abdominal pain, change in stool character or change in bowel habits Musc Musculoskeletal: No joint pain, back pain, limited range of motion or abnormal walking Skin Skin: No change in hair or sores Neuro Neurology: Positive for dizziness; no abnormal speech, abnormal movements, frequent falls, weakness, unsteady gait/balance, lack of coordination, loss of vision, restless legs, fainting, tremor(s), behavioral changes, confusion, memory loss, visual disturbances, abnormal hearing, headache(s) or abnormal walking Psych Psychiatric: No abnormal sleep pattern, No behavioral changes, No confusion, No memory loss, Positive for anxiety Endo Endocrine: No change in body appearance, cold intolerance, heat intolerance, fatigue or excessive sweating Aller/Imm Allergy/Immunologic: No food intolerance Iker/Lymp Hematologic/Lymphatic: No easy bruising Exam Const General: cooperative, healthy appearing, no acute distress Nutritional Appearance: average body habitus Orientation: alert, awake, oriented x3 HENMT Head: normal to inspection, normocephalic, atraumatic, no temporal artery tenderness, no scalp tenderness, no scalp lesions, other (lateral rotation of head exacerbates symptoms) Ears: hearing grossly normal bilaterally, external ears normal, TM's normal bilaterally, EAC's normal, mastoids normal, no periauricular adenopathy Nose: external nose normal, nares normal, septum normal, no nasal discharge Face and sinus: normal facial exam, sinuses nontender, face symmetric Mouth: oral mucosae normal, lip normal, tongue normal, oropharynx normal Teeth and gingiva: dentition normal, gingiva normal Throat: posterior oropharynx normal, tonsils normal Eyes General: appearance normal, both eyes and all related structures Visual [place]: normal visual [place] by confrontation Alignment and Position: alignment normal, position normal Periorbital: periorbital findings normal Eyelids: eyelids normal Conjunctivae: conjunctivae normal Sclera: sclerae normal Cornea: corneas normal Pupils: PERRL, normal by confrontation, accommodation normal Neck Neck: normal visual inspection, full ROM, no lymphadenopathy, no meningeal signs, supple Neck mass: No Thyroid: thyroid normal Lymphatic: no lymphadenopathy noted Chest Chest palpation AND inspection: normal inspection of the chest Resp Effort AND Inspection: normal respiratory effort, able to speak in complete sentences Auscultation: Bilateral: Clear to Auscultation Cardio Palpation: normal PMI Rate: regular rate Rhythm: regular rhythm Heart Sounds: S1 normal, S2 normal, no gallops, no murmurs, no rubs Pulses: radial pulses present GI Inspection: normal to inspection Palpation: soft, no hepatosplenomegaly Skin General: no rashes or lesions noted Neuro General: alert, awake, oriented x3, gait normal Cranial Nerves: CN's II-XI intact bilaterally Cognition: normal cognition Speech: speech normal Gait: normal gait Motor: muscle tone normal throughout Sensory Exam: no sensory deficits noted Extrem General: normal to inspection Psych Appearance: grossly normal Mental Status: mental status grossly normal Mood: congruent mood Affect: normal affect Speech and Movement: speech and movement normal Attitude: cooperative Thought Process: normal Thought Content: normal Judgment: judgment good Assessment AND Plan 1. Vertigo R42 2. BPPV (benign paroxysmal positional vertigo) H81.10 Plan Meclizine as prescribed today. Increase fluid intake, rest, Advil/Tylenol as needed for symptomatic relief. F/u w/ pcp in 2-3 days if symptoms do not improve, sooner should symptoms worsen or any other concerns develop. Patient states acknowledging understanding. Plan Detail Other Medications New: Coding Level of Care Code Off vis,new,level 4 Diagnoses Vertigo R42 BPPV (benign paroxysmal positional vertigo) H81.10 07/31/17 1552 <Electronically signed by Reinaldo XIONG> Date Reinaldo XIONG Cosigner Signature: Date (if applicable) CC: ALLERGIES ALLERGIES DATE TYPE / CODE NAME / CODE REACTION SEVERITY SOURCE 07/14/2018 Drug bupropion Other Unknown [place] Allergy/986699237(S HCl/[id number]( [facility] NOMED CT) RXNORM) Hospital Repository 07/14/2018 Drug morphine/P07502 Itching Unknown [place] Allergy/889768906(S 1545(RXNORM) [facility] NOMED CT) Hospital Repository 07/14/2018 Drug amoxicillin/F00 Other Unknown [place] Allergy/286878655(S 7087512(RXNORM) [facility] CT) Hospital Repository 07/14/2018 Drug chocolate Unknown Unknown [place] Allergy/946970039(S [id number] Repository 07/14/2018 Miscellaneous cosmetics Unknown Unknown [place] Allergy/439335346([facility] NOM CT) Hospital Repository 07/14/2018 Miscellaneous nuts Unknown Unknown [place] Allergy/029133669([facility]) Hospital Repository ENCOUNTERS ENCOUNTERS ADMIT/DISCHARGE ACCOUNT ADMITTING ENCOUNTER LOCATION SOURCE NUMBER CLASS 07/14/2018/ [id number] Ambulatory BMSBuilding:B [place] 8 4 [facility] Repository 06/25/2018 [id number] Ambulatory [place] 2 [facility] ing:OPBI Repository 05/30/2018 [id number] Ambulatory BMSBuilding:B [place] 4 [facility] Repository 05/30/2018/ [id number] Ambulatory [place] 8 7 [facility] ing:ENRoom: Repository AC16 05/19/2018/ [id number] Ambulatory BMSBuilding:B [place] 8 2 [facility] Repository 05/15/2018 [id number] Ambulatory [place] 5 [facility] ing:BFHLAB Repository 03/06/2018 [id number] Ambulatory [place] 7 [facility] Hospital ing:MTRAD Repository 12/13/2017 [id number] Ambulatory [place] 4 [facility] Hospital ing:MRI Repository 11/29/2017/ [id number] Ambulatory [place] 8 5 [facility] ing:OT Repository 11/19/2017 [id number] Ambulatory [place] 4 [facility] Hospital ing:OPUS Repository 11/18/2017/ [id number] Ambulatory [place] 8 7 [facility] ing:OT Repository 10/30/2017/ [id number] Ambulatory BMSBuilding:B [place] 8 0 [place].NOW [facility] Hospital Repository 10/07/2017 [id number] Ambulatory [place] 2 [facility] ing:MTRAD Repository 09/24/2017 [id number] Ambulatory [place] 8 [facility] ing:HPRAD Repository 09/02/2017 [id number] Ambulatory [place] 6 [facility] ing:MTRAD Repository 08/03/2017/ [id number] Ambulatory BMSBuilding:B [place] 8 2 [place].NOW [facility] Hospital Repository 07/31/2017/ [id number] Ambulatory BMSBuilding:B [place] 8 2 [place].NOW [facility] Hospital Repository PAYERS PAYERS ENCOUNTER GUARANTOR PAYER SUBSCRIBER SOURCE 07/14/2018 ALISHA [place] Primary ALISHA [id number] E Insurance:MYCARE CRSC FRANKDOB: Community [address] *IN [facility] 1017[place] Number: Repository [address]Jgu: 330 [id number] [phone] () Date:[id number] CLAIMS [address] [address]JS: 07/14/2018 Secondary NOT GIVENUNK [place] Insurance:SELF PAY [facility] Number: Effective Repository Date:2018-07-14 06/25/2018 ALISHA Griffin Primary ALISHA [id number] E Insurance:MYCARE CRSC FRANKDOB: Community [address] *IN [facility] [id number] Number: Repository [address]Iih: 330 [id number] [phone] () Date:7476-31-35WXQR CLAIMS DEPTPO [facility] [address] [place] [address]UZ: 06/25/2018 Secondary NOT GIVENUNK [place] Insurance:SELF PAY [facility] Number: Effective Repository Date:2018-05-15 05/30/2018 ALISHA J Primary ALISHA J [place] [id number] E Insurance:MYCARE CRSC FRANKDOB: Community [address] *IN [facility] [id number] Number: Repository [address]Bnv: 330 [id number] [phone] () Date:2696-91-77IGSP CLAIMS [address] [place] [address]KL: 05/30/2018 Secondary NOT GIVENUNK [place] Insurance:SELF PAY [facility] Number: Effective Repository Date:2018-05-30 05/30/2018 ALISHA J Primary ALISHA J [place] [id number] E Insurance:MYCARE CRSC FRANKDOB: Community [address] *IN [facility] [id number] Number: Repository [address]Dnu: 330 [id number] [phone] () Date:4442-97-85ITYR CLAIMS [address] [place] [address]TI: 05/30/2018 Secondary NOT GIVENUNK [place] Insurance:SELF PAY [facility] Number: Effective Repository Date:2018-05-19 05/19/2018 ALISHA J Primary ALISHA J [place] [id number] E Insurance:MYCARE CRSC FRANKDOB: Community [address] *IN [facility] [id number], [place] Number: Repository [address]Nvu: 330 [id number] [phone] () Date:3527-89-66QDJD CLAIMS [address] [place] [address]KQ: 05/19/2018 Secondary NOT GIVENUNK [place] Insurance:SELF PAY [facility] Number: Effective Repository Date:2018-05-19 05/15/2018 ALISHA J Primary ALISHA J [place] [id number] E Insurance:MYCARE CRSC FRANKDOB: Community [address] *IN [facility] 1948-04-[place] Number: Repository [address]Upz: [phone] [id number] [phone] (HP) Date:5369-87-87DSUM CLAIMS [address] [address]UI: 05/15/2018 Secondary NOT GIVENUNK [place] Insurance:SELF PAY [facility] Number: Effective Repository Date:2018-05-15 03/06/2018 ALISHA Griffin Primary ALISAH J [place] [id number] E Insurance:MYCARE [employer]SC FRANKDOB: Community [address] *IN [facility] [id number], [place] Number: Repository [address]Rnp: 330 [id number] [phone] (HP) Date:8080-44-58OVIF CLAIMS [address], [place] [address]OZ: 03/06/2018 Secondary NOT GIVENUNK [place] Insurance:SELF PAY [facility] Number: Effective Repository Date:2018-03-06 12/13/2017 ALISHA Griffin Primary ALISHA J [place] [id number] S Insurance:MYCARE CRSC FRANKDOB: Community [address] *IN [facility] [id number] Number: Repository [address]Wvm: 330 [id number] [phone] (HP) Date:4954-85-28GBKV CLAIMS [address], [place] [address]AK: 12/13/2017 Secondary NOT GIVENUNK [place] Insurance:SELF PAY [facility] Number: Effective Repository Date:2017-12-04 11/29/2017 ALISHA Griffin Primary ALISHA J [place] [id number] S Insurance:MYCARE CRSC FRANKDOB: Community [address] *IN [facility] [id number], [place] Number: Repository [address]Vcc: 330 [id number] [phone] (HP) Date:0356-39-81BYZX CLAIMS [address] [address]SN: 11/29/2017 Secondary NOT GIVENUNK [place] Insurance:SELF PAY [facility] Number: Effective Repository Date:2017-08-19 11/19/2017 ALISHA Griffin Primary ALISHA J [place] [id number] S Insurance:[employer]CARE [employer] FRANKDOB: Community [address] *IN [facility] [id number] Number: Repository [address]Neb: 330 [id number] [phone] () Date:6937-08-55JYAA CLAIMS [address]PT[address] [place] [address]GJ: 11/19/2017 Secondary NOT GIVENUNK [place] Insurance:SELF PAY [facility] Number: Effective Repository Date:2017-11-14 11/18/2017 ALISHA Griffin Primary ALISHA J [place] [id number] S Insurance:[employer]ARE [employer] FRANKDOB: Community [address] *IN [facility] 8436-68-[place]OPS[place] Number: Repository [address]Hfu: 330 [id number] [phone] () Date:5778-66-72QYFF CLAIMS [address]PT[address] [place] [address]VI: 11/18/2017 Secondary NOT GIVENUNK [place] Insurance:SELF PAY [facility] Number: Effective Repository Date:2017-11-18 10/30/2017 ALISHA Griffin Primary ALISHA J [place] [id number] S Insurance:[employer]ARE [employer] FRANKDOB: Community [address] *IN [facility] [id number] Number: Repository [address]Kfz: 330 [id number] [phone] () Date:0032-41-41FGEY CLAIMS [address], [place] [address]UT: 10/30/2017 Secondary NOT GIVENUNK [place] Insurance:SELF PAY [facility] Number: Effective Repository Date:2017-10-30 10/07/2017 ALISHA Griffin Primary ALISHA J [place] [id number] S Insurance:[employer]ARE [employer] FRANKDOB: Community [address] *IN [facility] 3956-91-41HQY[place], [place] Number: Repository [address]Ghs: 330 [id number] [phone] (HP) Date:9019-17-52BDJC CLAIMS [address], [place] [address]ME: 10/07/2017 Secondary NOT GIVENUNK [place] Insurance:SELF PAY [facility] Number: Effective Repository Date:2017-10-07 09/24/2017 ALISHA J Primary ALISHA J [place] [id number] S Insurance:MYCARE [employer]SC FRANKDOB: Community [address] *IN [facility] [id number], [place] Number: Repository [address]Gwx: 330 [id number] [phone] (HP) Date:2290-63-54PKRF CLAIMS [address], [place] [address]LY: 09/24/2017 Secondary NOT GIVENUNK [place] Insurance:SELF PAY [facility] Number: Effective Repository Date:2017-09-24 09/02/2017 ALISHA Griffin Primary ALISHA J [place] [id number] S Insurance:MYCARE [employer]SC FRANKDOB: Community [address] *IN [facility] 8620-51-32WEQ[place], [place] Number: Repository [address]Aqa: 330 [id number] [phone] (HP) Date:1966-41-86RMPE CLAIMS [address], [place] [address]ZF: 09/02/2017 Secondary NOT GIVENUNK [place] Insurance:SELF PAY [facility] Number: Effective Repository Date:2017-09-02 08/03/2017 ALISHA Griffin Primary ALISHA J [place] [id number] S Insurance:MYCARE [employer] FRANKDOB: Community [address] *IN [facility] [id number], [place] Number: Repository [address]Vnk: 330 [id number] [phone] (HP) Date:9695-14-01VQOJ CLAIMS [address], [place] [address]BD: 08/03/2017 Secondary NOT GIVENUNK [place] Insurance:SELF PAY [facility] Effective Repository Date:2017-08-03 07/31/2017 ALISHA Griffin Primary ALISHA [place] [id number] S Insurance:MYCARE [facility] FRANKDOB: Community [address] *IN [employer] [id number], [place] Number: Repository [address]Ifk: ([phone] [id number] [phone] () Date:7199-46-07TOTS CLAIMS [address], [place] [address]CP: 07/31/2017 Secondary NOT GIVENUNK [place] Insurance:SELF PAY [facility]: Effective Repository Date:2017-07-31
== END ==
PROVIDERS: Family Provider Family Medicine; PCP Family Medicine; Visit Provider Family Medicine
DX: Z12.31 Encounter for screening mammogram for malignant neoplasm of breast (principal)
CPT/HCPCS: 77063; 77067

== ENCOUNTER → 2018-07-31 14:01 | Outpatient (CLI) | payer MEDICARE, SELFPAY ==
--- NOTE | 2018-07-31 14:07 | RAD_ITS ---
STUDY: X-RAY - LUMBAR SPINE REASON FOR EXAM: Female, 62 years old. Chronic low back pain TECHNIQUE: 5 view(s) of the lumbar spine were obtained. COMPARISON: 08/25/2013 FINDINGS: Normal lumbar lordosis. There is a dextroscoliosis of the lumbar spine. Grade 1 spondylolisthesis of L3 in relation to L4 and L4-L5 due to facet arthropathy is similar since the prior study. There is multilevel endplate spondylosis of the lumbar vertebrae. Disc space narrowing has progressed at L3-L4 and L4-L5 since prior study. There is no demonstrated fracture. There is no demonstrated spondylolysis of the pars interarticulares. Moderate facet arthropathy in the mid to lower lumbar spine. The soft tissue structures are unremarkable. RAD/L/S Spine Min 4 Views IMPRESSION: Worsening degenerative disc disease and facet arthropathy most conspicuous at L3-L4 and L4-L5. Electronically Signed: Len Head MD at 8:08 EST , Service support ,
== END ==
PROVIDERS: Family Provider Family Medicine; PCP Family Medicine; Referring Provider Nurse Practitioner Family; Visit Provider Nurse Practitioner Family
DX: M47.817 Spondylosis without myelopathy or radiculopathy, lumbosacral region (principal); M43.16 Spondylolisthesis, lumbar region
CPT/HCPCS: 72110

== ENCOUNTER 2018-08-28 10:00 | Outpatient (RCR) | payer MEDICARE, SELFPAY ==
--- NOTE | 2018-08-06 13:14 | HP.PTEVAL_ITS ---
Patient's Visit Information ALISHA AG is a 62 year old F referred to Physical Therapy by ANGELO Patton with a diagnosis of L/S spondylosis. Date of Evaluation: 08/06/18 Physical Therapist: Kip Senior, PT, ATC - Visit Plan Frequency: 2x /Week Duration: 3 Weeks Plan: SKTC/DKTC, core stab ex's, nustep, and HEP - Subjective Findings: Pt reports she has had LBP for 5-6 years. Pt reports she has had PT in the past and caudal injections which have made no difference. Pt reports she has had recent xrays which she has not received the results yet. Pt reports no tingling or numbness in her legs today, but she had those symptoms all day yesterday. Pt reports no sleep difficulty secondary to pain. Pt reports prolonged standing and sitting with proper posture tends to increase her pain. Pt reports bending forward decreases her pain. Pt reports walking sometimes makes her feel better, and sometimes makes her feel worse. Pt is not currently working at this time. 0/10 pain at rest currently, 5/10 pain at worst - Pain LBP Pain Intensity (Out of 10): 0 Pain Intensity Range: 5 - Objective Neuro: B LE sensation is WNL to light touch. B patellar reflex= 1/3. MMT: B LE's are grossly 5/5 throughout. L/S ROM: flexion is WNL. Extension is severely limited. B SB is moderately limited. Repeated movements: SKTC/DKTC 10 sec x 3 ea had no effect. MARIAH provoked LE sx's - Goals Goal 1:: Decrease LBP x 50% to aid with IADL's Goal Time Frame: 2-4 Weeks Goal 2:: Decrease the frequency and intensity of B LE radiculopathy x 50% to aid with ambulation Goal Time Frame: 2-4 Weeks Goal 3:: I with HEP Goal Time Frame: 4-6 Weeks - Rehabilitation Potential Physical Therapy Diagnosis: LBP, limited ROM, and difficulty with standing secondary to degenerative changes in the L/S Rehabilitation Potential: Good - Anticipated Interventions Patient/Client Instruction: Educate patient on: Condition, Plan of Care For the Purpose of:: To improve self management Therapeutic Exercise to Include: Strength training, Endurance training, Body mechanics, Postural training, Dynamic Lumbar Stabilization For the Purpose of:: To decrease pain, To increase ROM, To improve muscle performance and motor function Cryotherapy (ice pack, ice massage): Yes For the Purpose of:: To decrease pain Thank you for the opportunity to evaluate your patient. For Medicare and Medicare HMO plans, please review the plan of care and approve it. It will need to be FAXED BACK to us at [phone] for Medicare purposes. For Medicare only, by signing this I certify the plan of care. Please let me know if there are questions or concerns regarding this plan of care. Physician Signature: Date:
--- NOTE | 2018-08-28 10:29 | HP.PTDCSUM ---
HP - PT D/C Summary It has been my pleasure to treat ALISHA AG under orders from Mariana Chau, NORA-C, for the diagnosis of L/S spondylosis for a total of 7 visit(s). Discharge Date: Please see the following information for a summary of their discharge status. - Subjective Subjective: Pt reports her pain is about the same - Pain LBP Pain Intensity (Out of 10): 1 - Objective Objective/Function: LBP is minimal at 1/10, but B hip pain remains unchanged. B LE radiculopathy remains the same. Pt is I with HEP - Goals Goal 1:: Decrease LBP x 50% to aid with IADL's Goal Progress: Progressing Goal 2:: Decrease the frequency and intensity of B LE radiculopathy x 50% to aid with ambulation Goal Progress: Progressing Goal 3:: I with HEP Goal Progress: Goal Met - Plan Plan: discontinue, RTD - D/C Information If there are questions or concerns regarding this patient's physical therapy, please feel free to call me at [phone]. Thank you for the referral of this patient. Sincerely, Kip Senior, PT, ATC
== END 2018-08-28 14:43 | disposition home or self-care (01) ==
LOC: PT 10:00
PROVIDERS: Family Provider Family Medicine; PCP Family Medicine; Referring Provider Nurse Practitioner Family; Visit Provider Nurse Practitioner Family
DX: M47.817 Spondylosis without myelopathy or radiculopathy, lumbosacral region (principal); M43.16 Spondylolisthesis, lumbar region; M48.061 Spinal stenosis, lumbar region without neurogenic claudication; M46.1 Sacroiliitis, not elsewhere classified; M51.36 Other intervertebral disc degeneration, lumbar region; M16.12 Unilateral primary osteoarthritis, left hip; M48.02 Spinal stenosis, cervical region; M54.12 Radiculopathy, cervical region
CPT/HCPCS: 97110; 97162; 97530

== ENCOUNTER 2018-09-02 13:00 | Emergency (ER) | payer MEDICARE, SELFPAY ==
[2018-09-01 09:45] VITALS: BMI 26.9
[2018-09-02 13:01] VITALS: BP 145/76; PULSE 80; RESP 18; TEMP 36.6; O2SAT 98; BMI 27.4
--- NOTE | 2018-09-02 13:47 | ED.VISSUMM ---
- ER Visit Summary Date of Service: 09/02/18 Chief Complaint: [Pain to left shoulder] History of Present Illness: The patient is a 63 F [results to the emergency department complaint of pain to the left shoulder that started 3 days ago. Patient states that 4 days ago she was carrying some albin of sawdust up steps and then later that evening developed a discomfort in her left arm and into her neck. Patient states he had a hard time sleeping at night secondary to pain. Patient was seen at urgent care yesterday and started on cyclobenzaprine and naproxen however she continues to have pain. About 2 days ago she noticed that maybe her left arm was weaker than usual and that she had a hard time abducting the arm. 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 Patient called urgent care today and she was asked to come to the emergency department to be evaluated. Patient rates her pain a 9-1/2 out of 10.] Physical Examination: [HEENT-PERRLA, EOMI. Cranial nerves II through XII grossly intact. TMs clear. Mucous membranes moist. No adenopathy. Patient has tenderness to palpation over the left cervical paraspinal musculature and left trapezius. Cardiovascular-regular rate and rhythm without murmur or ectopy Lungs-clear to auscultation, chest wall stable without crepitus or subcu emphysema Abdomen-normoactive bowel sounds, soft, nontender, no rebound or rigidity, no peritoneal signs. Extremities-intact ?4, normal range of motion, normal pulses, atraumatic.] Left shoulder-patient has diffuse tenderness about the glenohumeral joint as well as the left trapezius that reproduces her pain. Patient is able to abduct to 90 degrees and she is able to place her arm behind her back. Patient has normal astronomy department chair strength. Deep tendon reflexes are plus 2 out of 4 bilaterally at the biceps, triceps, brachioradialis. When attempting to abduct at the left shoulder past 90 degrees she seems to have difficulty. Test Results: [Not indicated] Emergency Department Course and Treatment: [Patient I suspect likely has a trapezius strain and shoulder strain. Her symptoms do not sound radiculopathic. I do not feel she needs any imaging.] Treatment Plan: [Patient will be given a prescription for [place] and she is to continue with the cyclobenzaprine and naproxen. Patient does state that her pain seems to be improving. She is advised to follow-up with her primary care physician within the next 5-7 days and if her symptoms continue to worsen she may need imaging such as possibly MRI of her neck to evaluate further.] Disposition: [Discharged home stable condition] Impression: [Trapezius/shoulder strain] This note was generated with [employer] dictation software. It may contain incorrect words, spelling, and punctuation that were not noted in review of the chart prior to signing ED Disposition - Plan for ED Patient: Referrals: Mariana James DO [Primary Care Provider] -
--- NOTE | 2018-09-02 13:51 | ED.DCSUM_ITS ---
- ER Visit Summary Date of Service: 09/02/18 Chief Complaint: [Pain to left shoulder] History of Present Illness: The patient is a 63 F [results to the emergency department complaint of pain to the left shoulder that started 3 days ago. Patient states that 4 days ago she was carrying some albin of sawdust up steps and then later that evening developed a discomfort in her left arm and into her neck. Patient states he had a hard time sleeping at night secondary to pain. Patient was seen at urgent care yesterday and started on cyclobenzaprine and naproxen however she continues to have pain. About 2 days ago she noticed that maybe her left arm was weaker than usual and that she had a hard time abducting the arm. 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 Patient called urgent care today and she was asked to come to the emergency department to be evaluated. Patient rates her pain a 9-1/2 out of 10.] Physical Examination: [HEENT-PERRLA, EOMI. Cranial nerves II through XII grossly intact. TMs clear. Mucous membranes moist. No adenopathy. Patient has tenderness to palpation over the left cervical paraspinal musculature and left trapezius. Cardiovascular-regular rate and rhythm without murmur or ectopy Lungs-clear to auscultation, chest wall stable without crepitus or subcu emphysema Abdomen-normoactive bowel sounds, soft, nontender, no rebound or rigidity, no peritoneal signs. Extremities-intact ?4, normal range of motion, normal pulses, atraumatic.] Left shoulder-patient has diffuse tenderness about the glenohumeral joint as well as the left trapezius that reproduces her pain. Patient is able to abduct to 90 degrees and she is able to place her arm behind her back. Patient has normal motor driver strength. Deep tendon reflexes are plus 2 out of 4 bilaterally at the biceps, triceps, brachioradialis. When attempting to abduct at the left should er past 90 degrees she seems to have difficulty. Test Results: [Not indicated] Emergency Department Course and Treatment: [Patient I suspect likely has a trapezius strain and shoulder strain. Her symptoms do not sound radiculopathic. I do not feel she needs any imaging.] Treatment Plan: [Patient will be given a prescription for [place] and she is to continue with the cyclobenzaprine and naproxen. Patient does state that her pain seems to be improving. She is advised to follow-up with her primary care physician within the next 5-7 days and if her symptoms continue to worsen she may need imaging such as possibly MRI of her neck to evaluate further.] Disposition: [Discharged home stable condition] Impression: [Trapezius/shoulder strain] This note was generated with [employer] dictation software. It may contain incorrect words, spelling, and punctuation that were not noted in review of the chart prior to signing ED Disposition - Plan for ED Patient: Referrals: Mariana James DO [Primary Care Provider] -
--- NOTE | 2018-09-02 13:51 | ED.DEP ---
ED Disposition - Plan for ED Patient: Instructions: ED Sprain Shoulder, ED Sprain Strain Neck Prescriptions: Oxycodone HCl/Acetaminophen [Percocet 5/325] 1 tab PO Q6H PRN PRN 5 Days #20 tab PRN Reason: Pain Referrals: Mariana James DO [Primary Care Provider] - 5-7 Days
--- NOTE | 2018-09-02 14:11 | ED.RN ---
DISCHARGE INSTRUCTIONS GIVEN TO AND REVIEWED WITH PATIENT, PATIENT DENIES QUESTIONS OR CONCERNS AND VOICES UNDERSTANDING OF DISCHARGE INSTRUCTIONS. PT AMBULATES OUT OF ROOM DIFFICULTY.
== END 2018-09-02 14:12 | disposition home or self-care (01) ==
LOC: ED 13:47
PROVIDERS: Emergency Provider Emergency Medicine; Family Provider Family Medicine; PCP Family Medicine
DX: S46.812A Strain of other muscles, fascia and tendons at shoulder and upper arm level, left arm, initial encounter (principal); X50.0XXA Overexertion from strenuous movement or load, initial encounter; Y93.89 Activity, other specified; Y92.009 Unspecified place in unspecified non-institutional (private) residence as the place of occurrence of the external cause; Y99.8 Other external cause status
CPT/HCPCS: 99282

== ENCOUNTER → 2018-09-09 12:28 | Outpatient (CLI) | payer MEDICARE, SELFPAY ==
[2018-09-01 09:45] VITALS: BMI 26.9
[2018-09-02 13:01] VITALS: BMI 27.4
--- NOTE | 2018-09-09 12:31 | MRI_ITS ---
STUDY: MRI LUMBAR SPINE WITHOUT CONTRAST REASON FOR EXAM: Female, 63 years old. Back pain TECHNIQUE: Standardized fat and water weighted pulse sequences were obtained in the sagittal and axial planes. COMPARISON: October 06, 2013 FINDINGS: T12-L1: Normal endplates. Normal disc height, hydration and morphology. Normal bilateral facet joints. Normal central canal and bilateral lateral recesses. Normal bilateral intervertebral neural foramina. Normal lumbar lordosis. There is no substantial scoliosis. Normal conus medullaris that terminates at L1 L1-2: Normal endplates. Normal disc height, hydration and minimal annular bulge. Normal bilateral facet joints. Normal central canal and bilateral lateral recesses. Normal bilateral intervertebral neural foramina. L2-3: Normal endplates. Normal disc height, hydration and mild annular bulge.. Bilateral facet arthropathy.. Normal central canal and bilateral lateral recesses. Moderate bilateral neural foraminal stenosis L3-4: Grade 1 spondylolisthesis Mild endplate spurring. Narrowed disc space with desiccation of the disc and mild bulging disc osteophyte complex. Bilateral facet arthropathy and thickening of ligamenta flava. Moderate central canal stenosis. Moderate to severe bilateral recess and neuroforaminal stenosis exaggerated by shortened pedicles L4-5: Grade 1 spondylolisthesis. Narrowed disc space with desiccation of the disc and mild bulging disc osteophyte complex. Bilateral facet arthropathy and thickening of ligamenta flava. Moderate narrowing of the central canal.. Severe bilateral recess and neuroforaminal stenosis exaggerated by shortened pedicles. L5-S1: Normal endplates. Normal disc height, hydration and morphology. Mild facet arthropathy.. Normal central canal and bilateral lateral recesses. Normal bilateral intervertebral neural foramina. Normal visualized sacral ala. Small right renal cyst is present Normal visualized paraspinous soft tissue structures. Findings are similar to that seen previously with perhaps very slight interval progression MRI/Spine Lumbar (Routine) IMPRESSION: No evidence for acute fracture or other significant bony pathology. Moderate spondylosis and multilevel spinal stenosis secondary to disc disease and bony hypertrophy most severe at L3-4 and L4-5 exaggerated by shortened pedicles. Electronically Signed: Darryl Solomon MD at 20:31 EST , Service support ,
== END ==
PROVIDERS: Family Provider Family Medicine; PCP Family Medicine; Referring Provider Nurse Practitioner Family; Visit Provider Nurse Practitioner Family
DX: M51.36 Other intervertebral disc degeneration, lumbar region (principal); M47.817 Spondylosis without myelopathy or radiculopathy, lumbosacral region; M48.061 Spinal stenosis, lumbar region without neurogenic claudication; M43.16 Spondylolisthesis, lumbar region
CPT/HCPCS: 72148

== ENCOUNTER → 2018-09-11 15:08 | Outpatient (CLI) | payer MEDICARE, SELFPAY ==
[2018-09-02 13:01] VITALS: BMI 27.4
--- NOTE | 2018-09-11 15:12 | RAD_ITS ---
STUDY: X-RAY - LEFT SHOULDER REASON FOR EXAM: Female, 63 years old. Possible torn rotator cuff. TECHNIQUE: 4 view(s) of the shoulder. COMPARISON: None. FINDINGS: There is mild degenerative arthrosis of the glenohumeral articulation. Normal acromioclavicular joint. Normal acromion. There is no acute fracture, dislocation or destructive osseous pathology. There is demineralization of the humerus and visualized osseous structures. The soft tissue structures are unremarkable. Normal visualized pulmonary apex. RAD/Shoulder min 2 Views IMPRESSION: Mild degenerative changes shoulder. There is no marked narrowing of the acromiohumeral space to suggest rotator cuff tear. MRI is recommended for further evaluation of the soft tissues. Electronically Signed: Gonzalez Choudhury DO at 18:22 EST Tel [phone], Service support ,
== END ==
PROVIDERS: Family Provider Family Medicine; PCP Family Medicine; Referring Provider Nurse Practitioner Family; Visit Provider Nurse Practitioner Family
DX: M25.512 Pain in left shoulder (principal)
CPT/HCPCS: 73030

== ENCOUNTER → 2018-09-13 11:52 | Outpatient (CLI) | payer MEDICARE, SELFPAY ==
[2018-09-13 11:09] VITALS: BMI 27.4
--- NOTE | 2018-09-13 12:16 | RAD_ITS ---
STUDY: X-RAY CHEST REASON FOR EXAM: Female, 63 years old. Intermittent productive cough for 2 days TECHNIQUE: PA and lateral views of the chest. COMPARISON: None. FINDINGS: The lungs are clear and expanded. There is no demonstrated pleural abnormality. Normal size heart. Normal mediastinum and cata. Normal visualized pulmonary arteries. There is atherosclerotic tortuosity of the aortic arch and descending thoracic aorta. There are diffuse degenerative changes of the visualized thoracic spine. Normal visualized ribs, clavicles, and shoulders. There is no demonstrated abnormality of the visualized soft tissue structures of the upper abdomen. RAD/Chest PA and Lateral IMPRESSION: 1. No acute cardiopulmonary process. No focal pneumonia. Electronically Signed: Len Head MD at 11:30 EST , Service support ,
== END ==
PROVIDERS: Family Provider Family Medicine; PCP Family Medicine; Referring Provider Physician Assistant Medical; Visit Provider Physician Assistant Medical
DX: R05 Cough (principal)
CPT/HCPCS: 71046

== ENCOUNTER 2018-10-22 12:00 | Outpatient (RCR) | payer MEDICARE, SELFPAY ==
[2018-09-13 11:09] VITALS: BMI 27.4
--- NOTE | 2018-09-16 14:48 | HP.PTEVAL ---
Patient's Visit Information ALISHA AG is a 63 year old F referred to Physical Therapy by Mariana James DO with a diagnosis of L rotator cuff tear. Date of Evaluation: 09/16/18 Physical Therapist: Kip Senior PT, ATC - Visit Plan Frequency: 1x/Week Duration: 1-2 weeks Plan: Issue HEP of L shoulder rot cuff strenthening and scapular stab ex's next Rx. Then follow up approximately one month later if needed secondary to pain. CP for pain. - Subjective Findings: DOI: 08/30/18. Pt reports she was carrying heavy bails of sawdust up stairs when she experienced severe pain in her L shoulder. Pt is R hand dominant. Pt reports her pain progressively worsened each day after wards so she went to her doctor. Pt reports she had xrays which revealed no significant findings. Pt reports her L shoulder was very weak and she was unable to lift arm over her head until the past few days. Pt believes she has become stronger now and is able to lift her arm over her head. No PMHx. pt reports she is not able to put her half gallon of milk in her fridge without difficulty. No tingling or numbness in L UE. Pt reports sleep difficulty secondary to pain. Sig difficulty with driving secondary to pain. 2/10 at rest, 10/10 at worst - Pain L shoulder Pain Intensity (Out of 10): 2 Pain Intensity Range: 10 - Objective Neuro: B UE sensation is WNL to light touch. B bicepital reflex= 2/3. Palpation: Pt is very tender along the distribution of the supraspinatus tendon. No obvious deformity at this time. ROM: R shoulder flex= 180, abd= 180, ER= 70, IR WNL; L shoulder flex= 82, abd= 180, ER= 60, IR WNL. MMT: R shoulder 5/5 throughout. L shoulder is 4-/5 with the exception of IR which is 5/5. Special tests: positive empty can and HK impingement tests - Goals Goal 1:: I with HEP in 1-2 visits Goal Time Frame: 2-4 Weeks - Rehabilitation Potential Physical Therapy Diagnosis: L shoulder pain, weakness, and limited ROM secondary to L shoulder rotator cuff tear Rehabilitation Potential: Good - Anticipated Interventions Patient/Client Instruction: Educate patient on: Condition, Plan of Care For the Purpose of:: To improve self management Therapeutic Exercise to Include: Strength training, Endurance training, Postural training, Active ROM, Scapular Strength/Stabilization For the Purpose of:: To decrease pain, To increase ROM, To improve muscle performance and motor function Cryotherapy (ice pack, ice massage): Yes For the Purpose of:: To decrease pain Thank you for the opportunity to evaluate your patient. For Medicare and Medicare HMO plans, please review the plan of care and approve it. It will need to be FAXED BACK to us at [phone] for Medicare purposes. For Medicare only, by signing this I certify the plan of care. Please let me know if there are questions or concerns regarding this plan of care. Physician Signature: Date:
--- NOTE | 2018-10-22 12:19 | HP.PTDCSUM ---
HP - PT D/C Summary It has been my pleasure to treat ALISHA AG under orders from Mariana James DO, for the diagnosis of L rotator cuff tear for a total of 3 visit(s). Discharge Date: Please see the following information for a summary of their discharge status. - Subjective Subjective: Pt reports she feels a lot better now. - Pain L shoulder Pain Intensity (Out of 10): 0 - Overall Improvement % Improvement: 80 - Objective Objective/Function: L shoulder pain 0/10 currently, 8/10 with heavy lifting. L shoulder ROM: flex= 160, abd= 170, ER= 60, IR WNL. L shoulder MMT: L shoulder is 4+/5 throughout. Pt is I with HEP. Rx goals achieved - Goals Goal 1:: I with HEP in 1-2 visits Goal Progress: Goal Met - Plan Plan: Discharge - D/C Information If there are questions or concerns regarding this patient's physical therapy, please feel free to call me at [phone]. Thank you for the referral of this patient. Sincerely, Kip Senior, PT, ATC
== END 2018-10-22 19:00 | disposition home or self-care (01) ==
LOC: PT 12:00
PROVIDERS: Family Provider Family Medicine; PCP Family Medicine; Referring Provider Family Medicine; Visit Provider Family Medicine
DX: M75.102 Unspecified rotator cuff tear or rupture of left shoulder, not specified as traumatic (principal)
CPT/HCPCS: 97110; 97161; 97530

== ENCOUNTER 2019-04-21 09:16 | Emergency (ER) | payer MEDICARE, SELFPAY ==
[2018-09-13 11:09] VITALS: BMI 27.4
[2019-04-21 09:16] VITALS: BP 160/84; PULSE 74; RESP 18; TEMP 36.6; O2SAT 99; BMI 23.8
--- NOTE | 2019-04-21 09:26 | RAD_ITS ---
STUDY: X-RAY - PELVIS AND RIGHT HIP REASON FOR EXAM: Female, 63 years old. 3 day history of right hip pain. No known injury. TECHNIQUE: views of the pelvis and hip. COMPARISON: None. FINDINGS: There is a non-specific bowel gas pattern. Normal visualized soft tissue structures. Normal bilateral iliac wings, sacroiliac joints and visualized sacrum. Normal bilateral superior and inferior pubic rami. Normal pubic symphysis. Normal bilateral ischial tuberosities. Normal visualized femoral head. There is osteoarthritic spur formation of the acetabular rim. There is mild articular joint space narrowing of the hip. Findings suggestive of calcific tendinitis overlying both greater trochanters of the femurs. RAD/HIP, UNI W/ Pelvis 2-3 Views IMPRESSION: Findings suggestive of a calcific tendinitis overlying the right and left greater trochanters Electronically Signed: Dimitri Ordonez, at 9:49 EDT , Service support ,
--- NOTE | 2019-04-21 09:29 | ED.VIS.GEN ---
History of Present Illness Chief Complaint: Lower Extremity Injury Informant: Patient Onset: Yesterday Context: Gradual Onset Timing: Continuous Current Severity: Moderate Maximum Severity: Moderate Narrative: The patient presents to the emergency department with right hip pain. Patient states that she was rollerskating on Saturday. She lost her balance and fell onto her right hip. She did not strike her head. She denies loss of consciousness. Since then, she had a difficult time bearing weight on the hip. She is taken Tylenol with some improvement. She is still able to walk, but does describe some pain. The leg is not giving out. She denies any fevers or chills. Prior similar symptoms: No Recent Illness/Hospitalization: No Past Medical History - Allergies and Home Meds Allergies/Adverse Reactions: Allergies chocolate flavor Allergy (Verified 04/21/19 09:20) Unknown fexofenadine [From [place]] Allergy (Verified 04/21/19 09:20) Unknown pineapple Allergy (Verified 04/21/19 09:21) Unknown amoxicillin [Amoxicillin] Adverse Reaction (Verified 04/21/19 09:20) Other bupropion HCl [From Wellbutrin] Adverse Reaction (Verified 04/21/19 09:20) Other morphine Adverse Reaction (Verified 04/21/19 09:20) Itching cosmetics Allergy (Uncoded 04/21/19 09:20) Unknown nuts Allergy (Uncoded 04/21/19 09:20) Unknown ADVACODO Adverse Reaction (Uncoded 04/21/19 09:21) Unknown Primary Care Physician: Mariana James DO [Primary Care Provider] - Prior records reviewed: Yes Past Medical History: - Lives: With Family Smoking Status: Never smoker Review of Systems General: Denies: Chills, Fever, Sweats Eyes: Denies: Visual changes - bilaterally, Diplopia ENT: Denies: Rhinorrhea, Sore throat Cardiovascular: Denies: Chest pain, Palpitations Respiratory: Denies: Dyspnea, Cough, Dyspnea on exertion Gastrointestinal: Denies: Abdominal pain, Nausea, Vomiting, Diarrhea, Melena, Hematochezia Genitourinary: Denies: Dysuria, Hematuria, Frequency Musculoskeletal: Reports: Myalgias, Arthralgias. Denies: Back pain, Extremity Pain Skin: Denies: Rash, Wounds Neurological: Denies: Headache, Weakness, Numbness Physical Exam Vital Signs/Narrative: Vital Signs Temp Pulse Resp BP Pulse Ox 04/21/19 09:16 98 F 74 18 160/84 H 99 Inital Vital Signs reviewed: Yes General: Well nourished, Well developed, No Acute Distress Head: Normocephalic, Atraumatic Eyes: Perrl, EOMI ENT: Moist mucous membranes, No rhinorrhea Neck: Supple, Nontender Cardiovascular: Regular rate, Regular rhythm, No murmurs Respiratory: No distress, CTA bilaterally, Chest nontender Abdomen: Soft, Nontender, Nondistended, Normal bowel sounds Back: Nontender, Normal Inspection Extremities: No edema, Tenderness - Tenderness over the greater tuberosity of the right hip with some mild ecchymosis. No pain with logroll. Normal pulses. No erythema or evidence of infection. Skin: Normal color, No rash Neurological: Alert, Oriented x3, Cranial nerves II-XII grossly intact, Normal Strength, Normal Sensation Psychological: Normal affect, Normal Mood Diagnostic/Tx/Re-eval - Medical Decision Making Plain films were obtained of the hip and pelvis. These show no evidence of acute fracture. The patient is able to ambulate. I am going to write her for lidocaine patches. She is scheduled to see her pain management physician tomorrow. I feel this is reasonable. She will be discharged home. Impression 1. Right hip contusion ED Disposition - Plan for ED Patient: Instructions: Hip Strain Prescriptions: Lidocaine/Transparent Dressing [Lidocaine 4% Kit] 1 ea TP DAILY #5 kit Prescription Printed Referrals: Mariana James DO [Primary Care Provider] -
== END 2019-04-21 09:57 | disposition home or self-care (01) ==
LOC: ED 09:55
PROVIDERS: Emergency Provider Emergency Medicine; Family Provider Family Medicine; PCP Family Medicine
DX: S70.01XA Contusion of right hip, initial encounter (principal); W18.30XA Fall on same level, unspecified, initial encounter; Y93.51 Activity, roller skating (inline) and skateboarding; Y92.89 Other specified places as the place of occurrence of the external cause; Y99.8 Other external cause status
CPT/HCPCS: 73502; 99282

== ENCOUNTER 2019-04-24 09:10 | Emergency (ER) | payer MEDICARE, SELFPAY ==
[2019-04-24 09:11] VITALS: BP 162/84; PULSE 71; RESP 16; TEMP 37.1; O2SAT 98; BMI 33.5
[2019-04-24] MEDS: HYDROcodone Bitartrate/Apap 5/325 Tablet PO (09:23)
--- NOTE | 2019-04-24 09:28 | RAD_ITS ---
STUDY: X-RAY - LUMBAR SPINE REASON FOR EXAM: Female, 63 years old. Back pain. No known injury. TECHNIQUE: 3 view(s) of the lumbar spine were obtained. COMPARISON: None FINDINGS: Normal lumbar lordosis. There is no substantial scoliosis. Minimal anterior listhesis of L4 on L5. There is multilevel endplate spondylosis of the lumbar vertebrae. There is multi-level degenerative disc disease with multi-level disc space narrowing. The soft tissue structures are unremarkable. RAD/Lumbar Spine 2 or 3 Views IMPRESSION: Degenerative changes of the spine, as detailed above. Minimal anterior listhesis of L4 on L5. Electronically Signed: Dimitri Ordonez, at 9:56 EDT , Service support ,
--- NOTE | 2019-04-24 09:28 | RAD_ITS ---
STUDY: X-RAY - PELVIS AND RIGHT HIP REASON FOR EXAM: Female, 63 years old. Pain. No known injury. TECHNIQUE: 3 views of the pelvis and hip. COMPARISON: None. FINDINGS: There is a non-specific bowel gas pattern. There are multiple calcified phleboliths. Normal bilateral iliac wings, sacroiliac joints and visualized sacrum. Normal bilateral superior and inferior pubic rami. Normal pubic symphysis. Normal bilateral ischial tuberosities. Normal visualized femoral head. Normal acetabulum. Normal hip joint. RAD/HIP, UNI W/ Pelvis 2-3 Views IMPRESSION: No acute abnormality is seen. Electronically Signed: Dimitri Ordonez, at 9:55 EDT , Service support ,
--- NOTE | 2019-04-24 10:34 | ED.DCSUM_ITS ---
History of Present Illness Chief Complaint: Lower Extremity Injury Informant: Patient Onset: Days Context: Gradual Onset Timing: Intermittent Current Severity: Moderate Maximum Severity: Moderate Narrative: The patient presents to the emergency department with right back pain and right hip pain. Actually saw this patient earlier this week. She had a fall. At that point, her x-rays were normal. She followed up with her pain management clinic and had epidural injection. She states that it helped with the pain, but over the past 24 hours she is had some burning pain into her thigh. She denies any numbness in her groin. She denies any changes in gait. She had no problems with bowel or bladder. She has not found anything that helps the pain. Patient is otherwise been in her normal state of health. Prior similar symptoms: No Recent Illness/Hospitalization: No Past Medical History - Allergies and Home Meds Allergies/Adverse Reactions: Allergies chocolate flavor Allergy (Verified 04/24/19 09:11) Unknown fexofenadine [From Ariadna] Allergy (Verified 04/24/19 09:11) Unknown pineapple Allergy (Verified 04/24/19 09:11) Unknown amoxicillin [Amoxicillin] Adverse Reaction (Verified 04/24/19 09:11) Other bupropion HCl [From Wellbutrin] Adverse Reaction (Verified 04/24/19 09:11) Other morphine Adverse Reaction (Verified 04/24/19 09:11) Itching cosmetics Allergy (Uncoded 04/24/19 09:11) Unknown nuts Allergy (Uncoded 04/24/19 09:11) Unknown ADVACODO Adverse Reaction (Uncoded 04/24/19 09:11) Unknown Primary Care Physician: Mariana James DO [Primary Care Provider] - Prior records reviewed: Yes Past Medical History: - Smoking Status: Never smoker Review of Systems General: Denies: Chills, Fever, Sweats Eyes: Denies: Visual changes - bilaterally, Diplopia ENT: Denies: Rhinorrhea, Sore throat Cardiovascular: Denies: Chest pain, Palpitations Respiratory: Denies: Dyspnea, Cough, Dyspnea on exertion Gastrointestinal: Denies: Abdominal pain, Nausea, Vomiting, Diarrhea, Melena, Hematochezia Genitourinary: Denies: Dysuria, Hematuria, Frequency Musculoskeletal: Reports: Myalgias, Arthralgias, Back pain. Denies: Extremity Pain Skin: Denies: Rash, Wounds Neurological: Denies: Headache, Weakness, Numbness Physical Exam Vital Signs/Narrative: Vital Signs Temp Pulse Resp BP Pulse Ox 04/24/19 09:11 98.7 F 71 16 162/84 H 98 Inital Vital Signs reviewed: Yes General: Well nourished, Well developed, No Acute Distress Head: Normocephalic, Atraumatic Eyes: Perrl, EOMI ENT: Moist mucous membranes, No rhinorrhea Neck: Supple, Nontender Cardiovascular: Regular rate, Regular rhythm, No murmurs Respiratory: No distress, CTA bilaterally, Chest nontender Abdomen: Soft, Nontender, Nondistended, Normal bowel sounds Back: Normal Inspection, - - Paraspinal tenderness on the right. Mild tenderness over the greater trochanter of the right hip. No pain with logroll. Normal pulses. Extremities: Nontender, No edema Skin: Normal color, No rash Neurological: Alert, Oriented x3, Cranial nerves II-XII grossly intact, Normal Strength, Normal Sensation Psychological: Normal affect, Normal Mood Diagnostic/Tx/Re-eval Clinical Impression(s) from Imaging Studies Hip/Pelvis X-Ray 04/24/19 09:28 IMPRESSION: No acute abnormality is seen. Electronically Signed: Dimitri Ordonez, at 9:55 EDT , Service support , Lumbar Spine X-Ray 04/24/19 09:28 IMPRESSION: Degenerative changes of the spine, as detailed above. Minimal anterior listhesis of L4 on L5. Electronically Signed: Dimitri Ordonez, at 9:56 EDT , Service support , - Medical Decision Making The patient presents with pain. My suspicion is that this is more radicular. I really do not suspect cauda equina. She had no other recent falls. I did repeat plain films to make sure it was not a missed fracture and is unremarkable. Patient was given oral analgesics with improvement. At this point, I am going to give her a short course of pain control for home. She is comfortable this plan of care and will be discharged. Impression 1. Lumbar radiculopathy ED Disposition - Plan for ED Patient: Disposition: Home or Assisted Living Instructions: Hip Contusion Prescriptions: Hydrocodone Bitart/Apap 5-325 [[place] 5MG-325MG] 1 tab PO Q6H PRN PRN 3 Days #10 tab PRN Reason: Pain Prescription Printed Referrals: Mariana James DO [Primary Care Provider] -
== END 2019-04-24 12:41 | disposition home or self-care (01) ==
LOC: ED 09:41
PROVIDERS: Emergency Provider Emergency Medicine; Family Provider Family Medicine; PCP Family Medicine
DX: M54.16 Radiculopathy, lumbar region (principal)
CPT/HCPCS: 72100; 73502; 99284

== ENCOUNTER → 2019-06-26 12:45 | Outpatient (CLI) | payer MEDICARE, SELFPAY ==
--- NOTE | 2019-06-26 12:47 | BI_ITS ---
MAMMOGRAPHY - BILATERAL SCREENING 3-D TOMOSYNTHESIS REASON FOR EXAM: Female, 63 years old. PERTINENT HISTORY: No significant family history. TECHNIQUE: 2-D mammograms and 3-D Tomosynthesis of the breast (s) were performed. CAD was performed. COMPARISON: June 25, 2018 FINDINGS: The breast composition is of scattered fibroglandular tissue Scattered benign arterial calcifications are seen. No dense spiculated masses or suspicious microcalcifications are identified. No architectural distortion is identified. There is no skin thickening or nipple retraction. There has been no significant change since the prior study of June 25, 2018. BI/SCREEN MAMM (CAD) W/LUCINDA BILAT IMPRESSION: No mammographic signs of malignancy. Routine yearly mammograms recommended. ASSESSMENT CATEGORY: BIRADS Category 1: Negative. A letter regarding these results will be sent to the patient by the facility within 30 days. FOLLOW UP RECOMMENDATION: Yearly follow up mammogram recommended. (A) Approximately 10% of breast cancers are not detected by mammography. A normal mammogram should not delay biopsy of a clinically suspicious abnormality. Electronically Signed: Mili Basurto, at 15:31 EST Tel , Service support ,
== END ==
PROVIDERS: Family Provider Family Medicine; PCP Family Medicine; Referring Provider Family Medicine; Visit Provider Family Medicine
DX: Z12.31 Encounter for screening mammogram for malignant neoplasm of breast (principal)
CPT/HCPCS: 77063; 77067

== ENCOUNTER → 2019-07-06 15:52 | Outpatient (CLI) | payer MEDICARE, SELFPAY ==
--- NOTE | 2019-07-06 16:02 | MRI_ITS ---
STUDY: MRI CERVICAL SPINE WITHOUT CONTRAST REASON FOR EXAM: Female, 63 years old. Disc degeneration and radiculopathy. Neck pain and bilateral shoulder pain. TECHNIQUE: Standardized fat and water weighted pulse sequences were obtained in the sagittal and axial planes. COMPARISON: MRI cervical spine 09/29/2012. 06/22/2019 cervical spine radiographs. FINDINGS: No acute fracture or acute osseous abnormality. Late subacute versus chronic fracture through the anterior, inferior corner of the C5 vertebral body, new compared to the previous MRI but present on the 06/22/2019 radiographs. This fracture extends through the base of an osteophyte which arises off the anterior lower aspect of the C5 vertebral body. There is no significant displacement there is no evidence of bony bridging of the fracture which has sclerotic margins. The overlying anterior longitudinal ligament is irregular in contour but not fully torn. Alignment remains anatomic. No other fracture is evident. Disc desiccation and disc space loss most prominent at C5-6. Only minimal endplate degenerative changes at this level. Otherwise the endplates are unremarkable. Normal signal of the cervical spinal cord. At C2-3, there remains no significant narrowing. At C3-4, left facet osteophytes mildly narrow the left foramen. No significant right foraminal or spinal canal narrowing. At C4-5, left-sided disc osteophyte complex has increased in size compared to prior, extending into and now moderately narrowing the left foramen. This mildly narrows the left anterior aspect of the spinal canal, abutting the left anterior spinal cord. No significant right foraminal narrowing. At C5-6, vertebral body osteophytes and small underlying disc protrusion mildly narrow the spinal canal. Uncovertebral joint osteophytes extend into and markedly narrows the bilateral foramina, similar to prior. At C6-7, there is no significant spinal canal narrowing. Uncovertebral joint osteophytes cause moderate bilateral foraminal narrowing, similar to previous. At C7-T1 there is no significant narrowing. The paraspinal soft tissues are unremarkable. No prevertebral hematoma. MRI/Spine Cervical (Routine) IMPRESSION: Late subacute versus chronic fracture through the anterior, inferior corner of the C5 vertebral body, new compared to the previous MRI but present on the 06/22/2019 radiographs. This fracture extends through the base of an osteophyte which arises off the anterior lower aspect of the C5 vertebral body. There is no significant displacement there is no evidence of bony bridging of the fracture which has sclerotic margins. Degenerative changes have progressed slightly compared to the previous study. This includes high-grade bilateral foraminal narrowing at C5-6; if there is either side C6 radiculopathy this might be the etiology. Electronically Signed: Guilherme Rodriguez, at 21:08 EST Tel , Service support ,
== END ==
PROVIDERS: Family Provider Family Medicine; PCP Family Medicine; Referring Provider Nurse Practitioner Family; Visit Provider Nurse Practitioner Family
DX: M50.10 Cervical disc disorder with radiculopathy, unspecified cervical region (principal); M48.02 Spinal stenosis, cervical region; S12.9XXA Fracture of neck, unspecified, initial encounter; M48.9 Spondylopathy, unspecified
CPT/HCPCS: 72141

== ENCOUNTER → 2019-07-27 10:37 | Outpatient (CLI) | payer MEDICARE, SELFPAY ==
[2019-07-14 14:27] VITALS: BMI 33.5
== END ==
PROVIDERS: Family Provider Family Medicine; PCP Family Medicine; Referring Provider Family Medicine; Visit Provider Family Medicine
DX: R30.0 Dysuria (principal)
CPT/HCPCS: 87086; 87088

== ENCOUNTER 2019-08-05 22:33 | Inpatient (IN) | payer MEDICARE, SELFPAY ==
[2019-07-14 14:27] VITALS: BMI 33.5
[2019-08-05 22:35] VITALS: BP 160/81; PULSE 114; RESP 26; TEMP 36.7; O2SAT 98; BMI 24.7
[2019-08-05 22:59] VITALS: BP 155/76; PULSE 93; RESP 20; TEMP 37.4; O2SAT 100
--- NOTE | 2019-08-05 23:02 | ED.DCSUM_ITS ---
History of Present Illness Chief Complaint: Fever Narrative: Patient is a 63-year-old female who presents with rigors. She complains of shaking chills for the past 3 days. She had a little bit of diarrhea on the initial day of illness but not since that time. She has had nausea. She developed vomiting tonight. She reports 4-5 episodes of nonbloody nonbilious emesis. She also complains of diffuse body aches. She does not have a thermometer at home so had not checked her temperature but did have a temperature of 102.7 for EMS. No congestion, rhinorrhea, cough. No chest pain or shortness of breath. She does complain of bilateral lower back/flank pain as well as suprapubic pain, dysuria, urinary incontinence. She has a history exploratory surgery and states she had a blood clot in my fallopian tube 30 to 40 years ago. No other abdominal surgeries. Past Medical History - Allergies and Home Meds Allergies/Adverse Reactions: Allergies chocolate flavor Allergy (Verified 08/05/19 22:39) Unknown fexofenadine [From Ariadna] Allergy (Verified 08/05/19 22:39) Unknown pineapple Allergy (Verified 08/05/19 22:39) Unknown amoxicillin [Amoxicillin] Adverse Reaction (Verified 08/05/19 22:39) Other bupropion HCl [From Wellbutrin] Adverse Reaction (Verified 08/05/19 22:39) Other morphine Adverse Reaction (Verified 08/05/19 22:39) Itching cosmetics Allergy (Uncoded 08/05/19 22:39) Unknown nuts Allergy (Uncoded 08/05/19 22:39) Unknown ADVACODO Adverse Reaction (Uncoded 08/05/19 22:39) Unknown Primary Care Physician: Mariana James DO [Primary Care Provider] - Past Medical History: - - IBS, GERD, depression and anxiety Smoking Status: Never smoker Review of Systems General: Reports: Chills, Fever Eyes: Denies: Visual changes - bilaterally ENT: Denies: Bilateral ear pain Cardiovascular: Denies: Chest pain Respiratory: Denies: Dyspnea, Cough Gastrointestinal: Reports: Abdominal pain, Nausea, Vomiting, Diarrhea Genitourinary: Reports: Dysuria, - - Urinary incontinence Musculoskeletal: Reports: Myalgias, Arthralgias Skin: Denies: Rash Neurological: Denies: Headache Hematologic: Denies: Easy bruising Allergy: Denies: Uticaria Physical Exam Vital Signs/Narrative: Vital Signs Temp Pulse Resp BP Pulse Ox 08/05/19 22:35 98.1 F 114 H 26 H 160/81 H 98 Inital Vital Signs reviewed: Yes General: Well nourished, Acute Distress - Patient with rigors and actively vomiting Head: Normocephalic Eyes: EOMI ENT: Moist mucous membranes Neck: Supple Cardiovascular: - - Heart is regular tachycardia without murmur, gallop, rub Respiratory: CTA bilaterally. Negative for: Rales, Rhonchi, Wheezing Abdomen: Soft, - - Patient has diffuse nonfocal abdominal tenderness without guarding without rebound Back: CVA tenderness - Bilateral CVA tenderness Extremities: Nontender Skin: Normal color Neurological: Alert Psychological: Normal affect Diagnostic/Tx/Re-eval Impressions Abdomen/Pelvis CT 08/06/19 22:59 IMPRESSION: Mild fat stranding along the inferior pole of the right kidney. There is urothelial enhancement of the right ureter concerning for underlying infectious/inflammatory process and urinary tract infection. Early pyelonephritis not excluded involving the right kidney inferior pole. Electronically Signed: Sherwinomkar John, at 0:45 EST Tel , Service support , 08/06/19 22:59 Abdomen/Pelvis W IV Cont ONLY [CT] Stat Laboratory Results 08/05/19 08/05/19 08/05/19 23:25 23:25 23:25 WBC 12.6 H RBC 4.23 Hgb 14.3 Hct 42.7 MCV 100.9 H MCH 33.8 H MCHC 33.5 RDW Std Deviation 46.3 H RDW Coeff of Roopa 12.3 Plt Count 176 MPV 11.2 Immature Gran % (Auto) 0.400 Neut % (Auto) 79.2 H Lymph % (Auto) 14.3 L Crisp % (Auto) 5.7 Eos % (Auto) 0.1 Baso % (Auto) 0.3 Absolute Neuts (auto) 10.0 H Absolute Lymphs (auto) 1.80 Nucleated RBC % 0 Sodium 139 Potassium 3.7 Chloride 106 Carbon Dioxide 22.0 Anion Gap 11 BUN 16 Creatinine 1.23 H Estim Creat Clear Calc 36.06 Est GFR (MDRD) Af Amer 56 L Est GFR (MDRD) Non-Af 46 L BUN/Creatinine Ratio 13.0 Glucose 129 H Lactic Acid 3.0 H* Calcium 9.8 Total Bilirubin 0.80 AST 25 ALT 21 Alkaline Phosphatase 87 Total Protein 7.7 Albumin 3.7 Globulin 4.0 Albumin/Globulin Ratio 0.9 Lipase 43 L Urine Color Urine Clarity Urine pH Ur Specific Brandon Urine Protein Urine Glucose (UA) Urine Ketones Urine Occult Blood Urine Nitrite Urine Bilirubin Urine Urobilinogen Ur Leukocyte Esterase Urine RBC Urine WBC Ur Squamous Epith Cells Urine Bacteria Urine Mucus 08/06/19 00:05 WBC RBC Hgb Hct MCV MCH MCHC RDW Std Deviation RDW Coeff of Roopa Plt Count MPV Immature Gran % (Auto) Neut % (Auto) Lymph % (Auto) Crisp % (Auto) Eos % (Auto) Baso % (Auto) Absolute Neuts (auto) Absolute Lymphs (auto) Nucleated RBC % Sodium Potassium Chloride Carbon Dioxide Anion Gap BUN Creatinine Estim Creat Clear Calc Est GFR (MDRD) Af Amer Est GFR (MDRD) Non-Af BUN/Creatinine Ratio Glucose Lactic Acid Calcium Total Bilirubin AST ALT Alkaline Phosphatase Total Protein Albumin Globulin Albumin/Globulin Ratio Lipase Urine Color Yellow Urine Clarity Clear Urine pH 6.5 Ur Specific Brandon 1.010 Urine Protein 30 H Urine Glucose (UA) Normal Urine Ketones 150 H Urine Occult Blood 25 H Urine Nitrite Positive H Urine Bilirubin Negative Urine Urobilinogen Normal Ur Leukocyte Esterase 100 H Urine RBC 0 SEEN Urine WBC 10-25 SEEN Ur Squamous Epith Cells 0-5 SEEN Urine Bacteria 1+ Urine Mucus 0 SEEN - Medical Decision Making Patient was treated with IV fluids and given fentanyl and Zofran for symptomatic relief. She was covered with IV Rocephin as initial presentation was concerning for pyelonephritis. Laboratory studies as above notable for leukocyt osis and urinalysis was positive. Lactic acid is 3.0. Patient is receiving IV fluids. She is resting more comfortably on reevaluation. Repeat temperature was 102 and she was also given Tylenol. CT was obtained which does show fat stranding around the right kidney as well as ureteral enhancement consistent with pyelonephritis. Patient will be discussed with the hospitalist and admitted. ED Disposition - Plan for ED Patient: Disposition: Acute Care Hospital [facility] Diagnosis: Pyelonephritis Referrals: Mariana James DO [Primary Care Provider] -
[2019-08-05] MEDS: fentaNYL 100 MCG/2 ML Ampul 25 MCG IV (23:20)
[2019-08-05] MEDS: 0.9% Normal Saline 1,000 ML 1000 ML IV (23:20)
[2019-08-05] MEDS: Ondansetron 4 MG/2 ML Vial IV (23:20)
[2019-08-05 23:38] VITALS: BP 148/74; PULSE 88; RESP 20; TEMP 37.4; O2SAT 98
[2019-08-05 23:38] LABS: Basophil# 0.04 X10^3/uL; Basophil% 0.3 % (0-1); Eosinophil# 0.01 X10^3/uL; Eosinophils% 0.1 % (0-5); Hematocrit 42.7 % (37-47); Hemoglobin 14.3 g/dL (12.0-15.0); Lymphocyte % 14.3 % (19-41); Mean Corp Hgb Conc 33.5 g/dL (32-36); Mean Corpuscular Hgb 33.8 pg (27.0-32.0); Mean Corpuscular Volume 100.9 fL (81-99); Mean Platelet Vol. 11.2 fl (6.2-12.0); Monocyte# 0.72 X10^3/uL; Monocyte% 5.7 % (0-10); NRBC Flagged by Analyzer 0 % (0-5); Neutrophil # 9.95 X10^3/uL (2.7-7.7); Neutrophil % 79.2 % (47-70); Platelet Count 176 K/mm3 (150-450); RBC Distribution Width CV 12.3 % (11.6-14.6); RBC Distribution Width SD 46.3 fl (35.1-43.9); Red Blood Count 4.23 M/mm3 (4.2-5.4); White Blood Count 12.6 K/mm3 (4.4-11.0)
[2019-08-05 23:51] LABS: ALB/GLOB Ratio 0.9 RATIO (0.9-2.4); AST(SGOT) 25 U/L (15-37); Alanine Aminotransfer ALT/SGPT 21 U/L (13-56); Albumin, Serum 3.7 g/dL (3.2-5.0); Alkaline Phosphatase 87 U/L (45-117); Anion Gap 11 (5-15); BUN 16 mg/dL (7-18); Calcium,Total 9.8 mg/dL (8.5-10.1); Chloride 106 mmol/L (98-107); Creatinine, Serum 1.23 mg/dL (0.55-1.02); EST Glomerular Filtration Rate 46 mL/min (>60); Est Glom Filt Rate - Afr Amer 56 mL/min (>60); Estimated Creatinine Clearance 36.06 ml/min; Glucose 129 mg/dL (74-106); Lipase 43 U/L (73-393); Potassium 3.7 mmol/L (3.5-5.1); Protein, Total 7.7 g/dL (6.4-8.2); Sodium Level 139 mmol/L (136-145)
[2019-08-06] VITALS (17 sets, daily range): BP systolic 119–143; BP diastolic 61–66; PULSE 79–98; RESP 16–20; TEMP 36.7–39.3; O2SAT 93–98; BMI 24.3; BMI 24.4
[2019-08-06 00:08] LABS: Mucous, Urine 0 SEEN /hpf (<or=2+); Red Blood Cells-Urine 0 SEEN /hpf (0-5)
[2019-08-06 00:10] LABS: Color, Urine Yellow (Yellow); Glucose, Dipstick Normal (Normal); Leukocyte Esterase-Dipstick 100 /ul (Negative); Nitrite-Dipstick Positive (Negative); Occult Blood-Urine 25 /ul (Negative); Protein-Dipstick 30 mg/dl (Negative); Urine Bilirubin Dipstick Negative (Negative); Urine Clarity Clear (Clear); Urine Urobilinogen Normal (Normal); Urine pH 6.5 (5.0 - 8.0)
[2019-08-06 00:15] LABS: Ketone-Dipstick 150 mg/dl (Negative)
[2019-08-06 00:21] LABS: Bacteria 1+ /hpf (None Seen); Squamous Epithelial Cells - UA 0-5 SEEN /hpf (5-10); White Blood Cells 10-25 SEEN /hpf (0-5)
[2019-08-06] MEDS: Ceftriaxone 1 GM/50 ML BAG IV (00:38)
[2019-08-06] MEDS: Acetaminophen 500 MG Tablet 1000 MG PO (00:47)
--- NOTE | 2019-08-06 01:07 | PCM.HP.STD ---
Problem List (1) Anxiety and depression Status: Chronic (2) Pyelonephritis Status: Acute (3) Degenerative disc disease, cervical Status: Chronic History of Present Illness Date of Admission: 08/06/19 Chief Complaint: Fever, chills, bilateral flank pain - one and half weeks The patient is a 63 year old F with past medical history of anxiety/depression who comes in with complaints of fever, chills, dysuria, bilateral flank pains ongoing for 1 and half weeks. Patient admits to frequency, urgency, dysuria ongoing for one and half weeks. She had noticed subjective fever with chills and worsening bilateral flank pain. She has nausea but started vomiting today. Reports 4-5 episodes of vomiting. She has generalized body aches. Vitals in the ED show temperature of 90 8.1F, heart rate 114, blood pressure 160/81, respiratory 26, SPO2 is 98% on room air. Her T-max in the ED was 102F. WBC count is 12.6, hemoglobin 14.2, platelet 176, BMP is remarkable for creatinine of 1.23, baseline of 0.75, lactic acid 3.0. UA shows cloudy urine, ketones 150, occult blood 25, nitrite positive, leukocyte Estrace 100, WBC count 10-25, 1+ bacteria. Past Medical History Past Medical History (Chronic Problems): Chronic Problems (Last Reviewed 08/03/19 @ 11:41 by Yoko Davalos) Anxiety and depression (Chronic) Degenerative disc disease, cervical (Chronic) Medical History: Medical History (Last Reviewed 08/03/19 @ 11:41 by Yoko Davalos) Anxiety and depression F41.9, F32.9 Arthritis M19.90 Asthma J45.909 Back pain M54.9 Difficulty balancing R29.818 GERD (gastroesophageal reflux disease) K21.9 Hay fever J30.1 Hypoglycemia E16.2 IBS (irritable bowel syndrome) K58.9 Incontinence R32 Knee pain M25.569 Low calcium levels E83.51 Melanoma C43.9 Osteopenia M85.80 child Allergies chocolate flavor Allergy (Verified 08/05/19 22:39) Unknown fexofenadine [From Ariadna] Allergy (Verified 08/05/19 22:39) Unknown pineapple Allergy (Verified 08/05/19 22:39) Unknown amoxicillin [Amoxicillin] Adverse Reaction (Verified 08/05/19 22:39) Other bupropion HCl [From Wellbutrin] Adverse Reaction (Verified 08/05/19 22:39) Other morphine Adverse Reaction (Verified 08/05/19 22:39) Itching cosmetics Allergy (Uncoded 08/05/19 22:39) Unknown nuts Allergy (Uncoded 08/05/19 22:39) Unknown ADVACODO Adverse Reaction (Uncoded 08/05/19 22:39) Unknown Home Medications: Ambulatory Orders Medication Instructions Recorded Lansoprazole [Prevacid] 30 mg PO DAILY 02/06/14 Montelukast [Singulair] 10 mg PO DAILY 02/06/14 Sumatriptan Succinate [Imitrex] 100 mg PO .X1 PRN 02/06/14 Venlafaxine HCl [Effexor] 75 mg PO TID 02/06/14 acetaminophen 325 mg tablet 500 mg PO Q6H PRN 07/31/17 ascorbic acid (vitamin C) 1,000 mg 1,000 mg PO DAILY 07/31/17 tablet cholecalciferol (vitamin D3) 25 400 unit PO DAILY 07/31/17 mcg (1,000 unit) capsule docusate sodium 50 mg capsule 100 mg PO 4X/DAY 07/31/17 ferrous sulfate 325 mg (65 mg 65 mg PO DAILY tab 07/31/17 iron) tablet garlic 1 tab PO BID 07/31/17 vitamin A 8,000 unit capsule 10,000 unit PO QDAY 07/31/17 vitamin B complex 1 tab PO QDAY 07/31/17 vitamin E 200 unit capsule 400 unit PO QDAY 07/31/17 zinc acetate 25 mg (zinc) capsule 5 mg PO QDAY 07/31/17 Albuterol Inhaler [Ventolin Hfa 1 - 2 puff INHALATION Q4H PRN PRN 05/28/18 (SP)] Alendronate Sodium [Fosamax] 70 mg PO ESTRADA 05/28/18 Calcium Carbonate [Calcium] 600 mg PO DAILY 05/28/18 Cider Vinegar [Apple Cider Vinegar] 450 mg PO DAILY 05/28/18 Cinnamon Bark [Cinnamon] 1,000 mg PO BID 05/28/18 Fluticasone 220 Mcg [Flovent (SP)] 2 puff INHALATION DAILY 05/28/18 Gluc Estrada/Chondro Estrada A/Vit C/Mn 1 ea PO DAILY 05/28/18 [Glucosamine-Chondroitin Cap] Magnesium 250 mg PO TID 05/28/18 Prosser-3 Fatty Acids/Fish Oil 1 ea PO DAILY 05/28/18 [Prosser 3 1,000 mg Softgel] Turmeric Root Extract [Turmeric] 1,000 mg PO BID 05/28/18 Surgical History: Surgical History (Last Reviewed 08/03/19 @ 11:41 by Yoko Davalso) Hx of knee surgery Z98.890 S/P breast lumpectomy Z98.890 Surgical History: - - Status post ACLS repair, laparoscopic surgery for blood clot on left fallopian tube Psychiatric History: Anxiety, Depression 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 Denies: Weight Change Eyes: Denies: Blurred vision, Cataracts, Conjunctivae Inflammation, Pain, Redness, Vision Change HEENT: Denies: Difficulty Hearing, Difficulty Swallowing, Head Aches, Hearing Changes, Sinus Congestion, Sinus Drainage Cardiovascular: Reports: Light Headedness. Denies: Chest Pain, Claudication, Orthopnea, Palpitations, Paroxysmal Noc. Dyspnea, Syncope Respiratory: Denies: Cough, Hemoptysis, Shortness of breath at rest, Shortness of breath upon exertion, Sputum production, Wheezing Gastrointestinal: Reports: Abdominal Pain, Nausea, Vomiting. Denies: Constipation, Hematemesis, Hematochezia Genitourinary: Reports: Dysuria, Frequency, Urgency. Denies: Incontinence, Nocturia Gynecological: Denies: Vaginal discharge Musculoskeletal: Denies: Joint Pain, Joint stiffness, Joint swelling, Joint Tenderness Skin: Denies: Rash, Wounds Neurological: Denies: Numbness, Tingling, Focal weakness Psychiatric: Denies: Anxiety, Depression, Homicidal Ideations, Suicidal Ideations Hematologic/ Lymphatic: Denies: Easy Bruising, Easy Bleeding VTE Information - Inpt Only VTE Present on Admission: No VTE Pharm Prophylaxis ordered?: Yes Patient Problems: Active and Suspected Problems (Last Reviewed 08/03/19 @ 11:41 by Yoko Davalos) Pyelonephritis (Acute) - Physical Exam Vitals/I&O's: Vital Signs Temp Pulse Resp BP Pulse Ox 102.0 F H 98 18 143/61 H 94 08/06/19 00:41 08/06/19 00:41 08/06/19 00:41 08/06/19 00:41 08/06/19 00:41 Oxygen Delivery Method Room Air Weight: 61.3 kg Body Mass Index (BMI) 24.7 Intake and Output for Last 24 Hours 08/04/19 08/05/19 08/06/19 23:59 23:59 23:59 Intake Total 1000 / 1000 Balance 1000 / 1000 General: Alert, Oriented x3, Cooperative, - - in moderate distress from pain HEENT: Atraumatic, PERRLA, EOMI, Normocephalic Oral: Dry Mucosa Neck: Supple Lungs: Clear to auscultation, Normal air movement Cardiovascular: Regular rate, Regular Rhythm, Normal S1, Normal S2, No murmurs, Tachycardic Abdomen: Bowel Sounds Present, Soft, Non-Distended, No Hepato-splenomegaly, Passing Flatus, Tender - generalised, worse in the bilateral flanks, with guarding but no rebound tenderness Extremities: No edema Skin: No rashes, No breakdown Musculoskeletal: No Tenderness to Palpation of Joints or Extremities Lymphatic: No Cervical, Supraclavicular, or Inguinal Adenopathy Neurological: Cranial nerves II-XII grossly intact, Neuro grossly intact Psych/Mental Status: Normal Affect, Appropriate Laboratory Results 08/05/19 23:25: WBC 12.6 H, RBC 4.23, Hgb 14.3, Hct 42.7, MCV 100.9 H, MCH 33.8 H, MCHC 33.5, RDW Std Deviation 46.3 H, RDW Coeff of Roopa 12.3, Plt Count 176, MPV 11.2, Immature Gran % (Auto) 0.400, Neut % (Auto) 79.2 H, Lymph % (Auto) 14.3 L, [place] % (Auto) 5.7, Eos % (Auto) 0.1, Baso % (Auto) 0.3, Absolute Neuts (auto) 10.0 H, Absolute Lymphs (auto) 1.80, Nucleated RBC % 0 08/05/19 23:25: Sodium 139, Potassium 3.7, Chloride 106, Carbon Dioxide 22.0, Anion Gap 11, BUN 16, Creatinine 1.23 H, Estim Creat Clear Calc 36.06, Est GFR (MDRD) Af Amer 56 L, Est GFR (MDRD) Non-Af 46 L, BUN/Creatinine Ratio 13.0, Glucose 129 H, Calcium 9.8, Total Bilirubin 0.80, AST 25, ALT 21, Alkaline Phosphatase 87, Total Protein 7.7, Albumin 3.7, Globulin 4.0, Albumin/Globulin Ratio 0.9, Lipase 43 L 08/05/19 23:25: Lactic Acid 3.0 H* 08/06/19 00:05: Urine Color Yellow, Urine Clarity Clear, Urine pH 6.5, Ur Specific Pixley 1.010, Urine Protein 30 H, Urine Glucose (UA) Normal, Urine Ketones 150 H, Urine Occult Blood 25 H, Urine Nitrite Positive H, Urine Bilirubin Negative, Urine Urobilinogen Normal, Ur Leukocyte Esterase 100 H, Urine RBC 0 SEEN, Urine WBC 10-25 SEEN, Ur Squamous Epith Cells 0-5 SEEN, Urine Bacteria 1+, Urine Mucus 0 SEEN Assessment/Plan All Active Problems (Last Reviewed 08/03/19 @ 11:41 by Yoko Davalos) Pyelonephritis (Acute) Segmental and somatic dysfunction of lumbar region (Acute) Segmental and somatic dysfunction of pelvic region (Acute) Segmental and somatic dysfunction of thoracic region (Acute) Segmental and somatic dysfunction of cervical region (Acute) Strain of left trapezius muscle (Acute) Cervical muscle strain (Acute) Nasal congestion with rhinorrhea (Acute) Bronchitis (Acute) Sinusitis (Acute) Bursitis of hip, right (Acute) Strain of right hip and thigh (Acute) BPPV (benign paroxysmal positional vertigo) (Acute) Vertigo (Acute) 63 year old F with past medical history of anxiety/depression who comes in with complaints of fever, chills, dysuria, bilateral flank pains ongoing for 1 and half weeks. 1. Severe sepsis secondary to acute right pyelonephritis (Patient has fever, tachycardia, leukocytosis) Right perinephric stranding seen on CT of the abdomen and pelvis Lactic acid is 3.0, evidence of organ dysfunction with acute kidney injury Blood cultures taken, urine cultures pending Continue on IV fluids at 150 mils per hour, repeat lactic acid per protocol Started on IV ceftriaxone, continue on same, pending blood and urine cultures. 2. Acute kidney injury, pre-renal secondary to #1 Baseline creatinine of 0.75 Continue on IV fluids, repeat blood work in a.m. 3. Anxiety/depression, continue on Venlafaxine 4. Severe degenerative disc disease, continue on Tylenol, PRN oxycodone 5. DVT PPx- Heparin SC Code Visit Inpatient E&M: 01497 Init Hosp L3
[2019-08-06] MEDS: 0.9% Saline Lock 10 ML Syringe IV (02:05)
[2019-08-06] MEDS: 0.9% Normal Saline 1,000 ML 150 ML IV ×2 (02:06→08:44)
[2019-08-06 03:29] LABS: Reflex Lactate? Y
[2019-08-06 03:51] LABS: Absolute Lymphocyte Count 0.79 X10^3/uL (0.83-4.51); Absolute Neutrophil Count 9.3 X10^3/uL (2.0-7.7); Basophil# 0.02 X10^3/uL; Basophil% 0.2 % (0-1); Hematocrit 35.6 % (37-47); Hemoglobin 11.7 g/dL (12.0-15.0); Lymphocyte # 0.79 X10^3/ul (4.0); Mean Corp Hgb Conc 32.9 g/dL (32-36); Mean Corpuscular Hgb 33.8 pg (27.0-32.0); Mean Corpuscular Volume 102.9 fL (81-99); Monocyte% 10.6 % (0-10); NRBC Flagged by Analyzer 0 % (0-5); Neutrophil # 9.27 X10^3/uL (2.7-7.7); Neutrophil % 81.8 % (47-70); Platelet Count 148 K/mm3 (150-450); RBC Distribution Width CV 12.3 % (11.6-14.6); RBC Distribution Width SD 46.5 fl (35.1-43.9); Red Blood Count 3.46 M/mm3 (4.2-5.4); White Blood Count 11.3 K/mm3 (4.4-11.0)
[2019-08-06 04:11] LABS: Lactic Acid 0.7 mmol/L (0.4-1.9)
[2019-08-06 04:41] LABS: ALB/GLOB Ratio 0.8 RATIO (0.9-2.4); AST(SGOT) 19 U/L (15-37); Alanine Aminotransfer ALT/SGPT 17 U/L (13-56); Albumin, Serum 2.7 g/dL (3.2-5.0); Alkaline Phosphatase 65 U/L (45-117); Anion Gap 8 (5-15); BUN 14 mg/dL (7-18); BUN/Creat Ratio 17.7 RATIO (10-20); Calcium,Total 8.2 mg/dL (8.5-10.1); Chloride 108 mmol/L (98-107); Creatinine, Serum 0.79 mg/dL (0.55-1.02); EST Glomerular Filtration Rate 77 mL/min (>60); Est Glom Filt Rate - Afr Amer 93 mL/min (>60); Estimated Creatinine Clearance 56.15 ml/min; Globulin 3.4 g/dL (2.2-4.2); Glucose 121 mg/dL (74-106); Potassium 3.5 mmol/L (3.5-5.1); Protein, Total 6.1 g/dL (6.4-8.2); Sodium Level 139 mmol/L (136-145)
[2019-08-06] MEDS: Venlafaxine HCl 75 MG Tablet PO ×3 (05:59→21:57)
[2019-08-06] MEDS: Heparin Injection (Vial) 5,000 UNIT/ML VIAL 5000 UNIT SC ×3 (06:00→21:57)
[2019-08-06] MEDS: Albuterol 2.5 MG/3 ML VIAL.NEB. INHALATION (06:41)
[2019-08-06] MEDS: Budesonide Respules 0.5 MG/2 ML AMPUL.NEB. INHALATION (06:42)
[2019-08-06] MEDS: Acetaminophen 325 MG Tablet 650 MG PO ×2 (06:54→20:04)
[2019-08-06] MEDS: Ferrous Sulfate 325 MG Tablet PO (08:40)
[2019-08-06] MEDS: Pantoprazole Sodium 40 MG Tablet PO (08:41)
[2019-08-06] MEDS: Calcium Carbonate 500 MG Tablet PO (08:41)
[2019-08-06] MEDS: Ondansetron 4 MG/2 ML Vial IV (08:44)
--- NOTE | 2019-08-06 12:19 | CASEMGMT ---
RN CM Assessment Presentation: Sepsis, pyelonephritis Intro role of CM and purpose of RN CM assessment to patient in room. Pt is awake and alert, able to participate in assessment. Demographics, PCP and Pharmacy verified. Pt states she is independent and has no concerns re: dc at this time. PCP: Dr. James Specialists: Dr. Burrows, pain physician Preferred Pharmacy: [facility] Insurance: [employer] Prescription Benefit: yes LNOK: SisterFlorence Living Arrangements: Lives independently in apartment. Pt states she does not have any care needs, completes own ADL's and IADL's. Transportation: drives DME: none HHC/SNF: none SW Referral: no Patient DC goals: home DC PLAN: home. No care needs identified. Pt aware if concerns re: dc arise, CM can return to discuss with her. Lashay KULKARNIN RN ACM
[2019-08-06] MEDS: Gabapentin 100 MG Capsule PO ×2 (12:32→21:57)
[2019-08-06] MEDS: Rizatriptan Benzoate 10 MG Tablet PO (14:49)
[2019-08-06] MEDS: Ensure Clear 120 ML Liquid PO ×2 (17:21→21:57)
[2019-08-06] MEDS: 0.9% Normal Saline 1,000 ML 100 ML IV (19:09)
[2019-08-06] MEDS: Montelukast 10 MG Tablet PO (21:57)
[2019-08-06] MEDS: DiphenhydrAMINE 25 MG Capsule PO (21:57)
--- NOTE | 2019-08-06 22:59 | CT_ITS ---
STUDY: CT ABDOMEN AND PELVIS WITH CONTRAST REASON FOR EXAM: Female, 63 years old. ABDOMEN PAIN AND FEVER,ELEVATED WBC,NAUSEA,VOMITING AND DIARRHEA SINCE YESTERDAY -- HX:ASTHMA,GERD,IBS,MELANOMA RADIATION DOSAGE (If Supplied By Facility): CTDIvol = ( 14.54 ) mGy, DLP = ( 484.48 ) mGycm TECHNIQUE: Transaxial images were obtained from the dome of the diaphragm to the symphysis pubis without oral contrast. IV 100mL Isovue-370 was administered. Sagittal and coronal images were reconstructed. Individualized dose optimization techniques were used for this CT. COMPARISON: None. FINDINGS: The visualized lung bases are unremarkable. The visualized portions of the heart are within normal limits. Normal liver. Normal gallbladder and extrahepatic biliary system. Normal spleen. Normal pancreas. Normal bilateral adrenal glands. There is mild right renal inferior pole perinephric fat stranding. There is urothelial enhancement involving the right ureter there are multiple bilateral tiny renal cysts. Normal visualized stomach. Normal small intestine. Normal colon. There is non-visualization of the appendix. Normal abdominal aorta. Normal inferior vena cava. Normal retroperitoneum. Normal urinary bladder. Normal abdominal wall. There are diffuse degenerative changes of the visualized lumbar spine. CT/Abdomen/Pelvis W IV Cont ONLY IMPRESSION: Mild fat stranding along the inferior pole of the right kidney. There is urothelial enhancement of the right ureter concerning for underlying infectious/inflammatory process and urinary tract infection. Early pyelonephritis not excluded involving the right kidney inferior pole. Electronically Signed: Angel Lopez, at 0:45 EST Tel , Service support ,
[2019-08-07] VITALS (11 sets, daily range): BP systolic 130–146; BP diastolic 62–82; PULSE 64–84; RESP 16–18; TEMP 36.8–39.5; O2SAT 92–98
[2019-08-07] MEDS: Acetaminophen 325 MG Tablet 650 MG PO ×4 (02:53→22:28)
[2019-08-07] MEDS: Gabapentin 100 MG Capsule PO ×3 (05:12→22:27)
[2019-08-07] MEDS: Heparin Injection (Vial) 5,000 UNIT/ML VIAL 5000 UNIT SC ×3 (05:12→22:28)
[2019-08-07] MEDS: Venlafaxine HCl 75 MG Tablet PO ×3 (05:12→22:27)
[2019-08-07] MEDS: 0.9% Normal Saline 1,000 ML 100 ML IV ×2 (05:13→16:29)
[2019-08-07 05:56] LABS: Absolute Lymphocyte Count 1.15 X10^3/uL (0.83-4.51); Basophil# 0.02 X10^3/uL; Basophil% 0.3 % (0-1); Eosinophil# 0.02 X10^3/uL; Eosinophils% 0.3 % (0-5); Hemoglobin 10.1 g/dL (12.0-15.0); Lymphocyte # 1.15 X10^3/ul (4.0); Lymphocyte % 16.4 % (19-41); Mean Corp Hgb Conc 32.6 g/dL (32-36); Mean Corpuscular Volume 101.3 fL (81-99); Mean Platelet Vol. 11.3 fl (6.2-12.0); Monocyte# 0.79 X10^3/uL; Monocyte% 11.2 % (0-10); NRBC Flagged by Analyzer 0 % (0-5); Neutrophil # 5.02 X10^3/uL (2.7-7.7); Neutrophil % 71.4 % (47-70); Platelet Count 130 K/mm3 (150-450); RBC Distribution Width CV 12.5 % (11.6-14.6); RBC Distribution Width SD 46.4 fl (35.1-43.9); Red Blood Count 3.06 M/mm3 (4.2-5.4)
[2019-08-07 06:29] LABS: Anion Gap 5 (5-15); BUN 7 mg/dL (7-18); BUN/Creat Ratio 9.7 RATIO (10-20); Chloride 110 mmol/L (98-107); Creatinine, Serum 0.72 mg/dL (0.55-1.02); EST Glomerular Filtration Rate 86 mL/min (>60); Est Glom Filt Rate - Afr Amer 103 mL/min (>60); Estimated Creatinine Clearance 61.61 ml/min; Glucose 124 mg/dL (74-106); Potassium 3.1 mmol/L (3.5-5.1); Sodium Level 139 mmol/L (136-145)
[2019-08-07] MEDS: Ferrous Sulfate 325 MG Tablet PO (10:07)
[2019-08-07] MEDS: Pantoprazole Sodium 40 MG Tablet PO (10:07)
[2019-08-07] MEDS: Calcium Carbonate 500 MG Tablet PO (10:08)
[2019-08-07] MEDS: Ensure Clear 120 ML Liquid PO ×2 (10:11→16:22)
--- NOTE | 2019-08-07 10:57 | PCM.PROGNOTE ---
Patient Problems: Active and Suspected Problems (Last Reviewed 08/03/19 @ 11:41 by Yoko Davalos) Pyelonephritis (Acute) Subjective: Chief complaint: Follow-up after admission for acute pyelonephritis, severe sepsis and bacteremia. Patient seen and examined. No acute events overnight. She still complaining of flank pain, today more on the left side. Denies any symptoms. Still having spikes of fever. Maximum temperature overnight was 103.1 Fahrenheit, other vital signs are stable. - Physical Exam Vitals/I&O's: Vital Signs Temp Pulse Resp BP Pulse Ox 99.0 F 82 16 144/79 H 95 08/07/19 09:00 08/07/19 09:00 08/07/19 09:00 08/07/19 09:00 08/07/19 07:25 Oxygen Delivery Method Room Air Weight: 136 lb 7.458 oz Body Mass Index (BMI) 24.3 Intake and Output for Last 24 Hours 08/05/19 08/06/19 08/07/19 23:59 23:59 23:59 Intake Total 4145.00 / 4145.00 1738.33 / 1738.33 Output Total 2100 / 2650 1150 / 1150 Balance 2045.00 / 1495.00 588.33 / 588.33 General: Alert, Oriented x3, Cooperative, No apparent distress HEENT: Atraumatic, PERRLA, EOMI, Normocephalic Oral: Moist Mucosa, No Gingival or Mucosal Lesions/ Ulcerations Neck: Supple, No JVD, Negative Carotid Bruits, Trachea Midline, Thyroid Normal Size and Texture Lungs: Clear to auscultation, Normal air movement, No rhonchi, No wheeze, No rales Cardiovascular: Regular rate, Regular Rhythm, Normal S1, Normal S2, No murmurs, PMI Normal Abdomen: Bowel Sounds Present, Soft, Non Tender, Non-Distended, No Hepato-splenomegaly Extremities: No clubbing, No cyanosis, No edema Skin: No rashes, No breakdown Lymphatic: No Cervical, Supraclavicular, or Inguinal Adenopathy Neurological: Cranial nerves II-XII grossly intact, Motor Exam 5/5 strength throughout Psych/Mental Status: Normal Affect, Appropriate, Alert and oriented to time, place, person, mood and affect Microbiology Past 72 Hours 08/05/19 23:55 Blood Culture (Wb) - Anticubital Right Blood Culture - Preliminary Gram negative pancho Laboratory Results 08/07/19 05:35: WBC 7.0, RBC 3.06 L, Hgb 10.1 L, Hct 31.0 L, MCV 101.3 H, MCH 33.0 H, MCHC 32.6, RDW Std Deviation 46.4 H, RDW Coeff of Roopa 12.5, Plt Count 130 L, MPV 11.3, Immature Gran % (Auto) 0.400, Neut % (Auto) 71.4 H, Lymph % (Auto) 16.4 L, [place] % (Auto) 11.2 H, Eos % (Auto) 0.3, Baso % (Auto) 0.3, Absolute Neuts (auto) 5.0, Absolute Lymphs (auto) 1.15, Nucleated RBC % 0 08/07/19 05:35: Sodium 139, Potassium 3.1 L, Chloride 110 H, Carbon Dioxide 24.0, Anion Gap 5, BUN 7, Creatinine 0.72, Estim Creat Clear Calc 61.61, Est GFR (MDRD) Af Amer 103, Est GFR (MDRD) Non-Af 86, BUN/Creatinine Ratio 9.7 L, Glucose 124 H, Calcium 8.0 L Microbiology 08/05/19 23:55 Blood Culture (Wb) - Anticubital Right Blood Culture - Preliminary Gram negative pancho Current Medications Acetaminophen (Tylenol) 650 mg PO Q6H PRN PRN PRN Reason: Pain Score 1-5/Temp > 100.7 F Last Admin: 08/07/19 10:11 Dose: 650 mg Documented by: Al Hydroxide/Mg Hydroxide (Mylanta Ii) 30 ml PO Q6H PRN PRN PRN Reason: Gastric Burning Albuterol Sulfate (Ventolin Aerosols) 2.5 mg INHALATION Q2H PRN PRN PRN Reason: Shortness of Breath/Wheezing Last Admin: 08/06/19 06:41 Dose: 2.5 mg Documented by: Budesonide (Pulmicort Aerosol) 0.5 mg INHALATION Q12H.RT ANAHI Last Admin: 08/07/19 07:25 Dose: Not Given Documented by: Calcium Carbonate (Tums) 500 mg PO DAILY ANAHI Last Admin: 08/07/19 10:08 Dose: 500 mg Documented by: Cholecalciferol (Vitamin D) 1,000 unit PO DAILY [facility] Last Admin: 08/07/19 10:08 Dose: 1,000 unit Documented by: Ferrous Sulfate (Ferrous Sulfate) 325 mg PO DAILYCM [facility] Last Admin: 08/07/19 10:07 Dose: 325 mg Documented by: Gabapentin (Neurontin) 100 mg PO TID [facility] Last Admin: 08/07/19 05:12 Dose: 100 mg Documented by: Heparin Sodium (Porcine) (Heparin Na) 5,000 unit SC Q8 [facility] Last Admin: 08/07/19 05:12 Dose: 5,000 unit Documented by: Sodium Chloride () 1,000 mls @ 100 mls/hr IV .Q10H [facility] Last Infusion: 08/07/19 10:36 Dose: 100 mls/hr Documented by: Sodium Chloride () 250 mls @ 15 mls/hr IV .[id number] PRN PRN Reason: Saline Flush Sodium Chloride () 250 mls @ 15 mls/hr IV .[id number] PRN PRN Reason: Additional IVPB Infusion Ceftriaxone Sodium 2 gm/ (Sodium Chloride) 50 mls @ 100 mls/hr IV Q24 [facility] Last Infusion: 08/07/19 10:36 Dose: Infused Documented by: Lactobacillus Acidophilus (Acidophilus) 1 tablet PO BID [facility] Last Admin: 08/07/19 10:07 Dose: 1 tablet Documented by: Melatonin (Melatonin) 3 mg PO QHS PRN PRN Reason: INSOMNIA Montelukast Sodium (Singulair) 10 mg PO DAILY@2200 [facility] Last Admin: 08/06/19 21:57 Dose: 10 mg Documented by: Nitroglycerin (Nitrostat) 0.4 mg SUBLINGUAL Q5M PRN PRN Reason: CARDIAC/CHEST PAIN Nutritional Formula (Lactose Free) (Ensure Clear) 120 ml PO 4X/DAY [facility] Last Admin: 08/07/19 10:11 Dose: 120 ml Documented by: Ondansetron HCl (Zofran) 4 mg IV Q8H PRN PRN PRN Reason: NAUSEA/VOMITING Last Admin: 08/06/19 08:44 Dose: 4 mg Documented by: Oxycodone HCl (Oxyir) 5 mg PO Q4H PRN PRN PRN Reason: Pain Score 6-10/10 Pantoprazole Sodium (Protonix) 40 mg PO DAILY [facility] Last Admin: 08/07/19 10:07 Dose: 40 mg Documented by: Rizatriptan Benzoate (Maxalt) 10 mg PO DAILY PRN PRN PRN Reason: MIGRAINE SYMPTOMS Last Admin: 08/06/19 14:49 Dose: 10 mg Documented by: Senna/Docusate Sodium (Senokot-S, Freida-Colace) 2 tablet PO BID PRN PRN PRN Reason: Constipation Sodium Chloride () 10 - 40 ml IV UD PRN PRN Reason: SALINE FLUSH Last Admin: 08/06/19 02:05 Dose: 10 ml Documented by: Venlafaxine HCl (Effexor) 75 mg PO TID [facility] Last Admin: 08/07/19 05:12 Dose: 75 mg Documented by: Medical Necessity - Tobacco Use Smoking Status: Never smoker Tobacco Use: Non-smoker Assessment/Plan All Active Problems (Last Reviewed 08/03/19 @ 11:41 by Yoko Davalos) Pyelonephritis (Acute) This is a 63 years old female patient presented to the emergency room because of fever, chills and bilateral flank pain and she was found to have acute pyonephritis with severe sepsis as well as bacteremia. #1 acute pyelonephritis/severe sepsis: She is on IV Rocephin. She still having spikes of fever, leukocytosis resolved. Other vital signs are stable. Urine culture is pending. Blood culture revealed gram-negative rods, final is pending. Repeat routine blood work from today revealed hemoglobin of 10.1 g/dL which is likely because of hemodilution. Potassium was 3.1. Plan: Continue same treatment, replace potassium, infectious disease consult for bacteremia. #2 bacteremia: Probable source is the urine. She is on IV Rocephin as above. Final blood cultures pending. Plan to consult infectious disease. #3 anxiety/depression: Continue Effexor and melatonin. #4 degenerative joint disease/chronic pain: Stable, continue OxyIR, Tylenol and gabapentin. #5 DVT prophylaxis: Subcu heparin. This note was generated with YODILation software. It may contain incorrect words, spelling, and punctuation that were not noted in checking the note before signing. Code Visit Inpatient E&M: 26720 Subs Hosp L2
--- NOTE | 2019-08-07 13:34 | CON.PCM_ITS ---
Problem List (1) Pyelonephritis Status: Acute Reason for Consult: bacteremia Consulted by: Dr. Royal History of Present Illness: The patient is a 63 year old F with h/o recurrent uti (typically associated with dysuria), presented 08/06 with 4-5 days of chills, shakes, fever, bilat flank pain (L more than R). No dysuria. No abd pain. Some n/v/d. No blood in stool or urine. No recent abx. Came to ED, admitted on ceftriaxone. Bcx and ucx now showing GNR. Feeling much better. Full ROS performed and neg except as noted above. - Medical History Past Medical History (Chronic Problems): Chronic Problems (Last Reviewed 08/03/19 @ 11:41 by Yoko Davalos) Anxiety and depression (Chronic) Degenerative disc disease, cervical (Chronic) Allergies/Adverse Reactions: Allergies chocolate flavor Allergy (Verified 08/05/19 22:39) Unknown fexofenadine [From Ariadna] Allergy (Verified 08/05/19 22:39) Unknown pineapple Allergy (Verified 08/05/19 22:39) Unknown amoxicillin [Amoxicillin] Adverse Reaction (Verified 08/05/19 22:39) Other bupropion HCl [From Wellbutrin] Adverse Reaction (Verified 08/05/19 22:39) Other morphine Adverse Reaction (Verified 08/05/19 22:39) Itching cosmetics Allergy (Uncoded 08/05/19 22:39) Unknown nuts Allergy (Uncoded 08/05/19 22:39) Unknown ADVACODO Adverse Reaction (Uncoded 08/05/19 22:39) Unknown Home Medications: Ambulatory Orders Medication Instructions Recorded Lansoprazole [Prevacid] 30 mg PO DAILY 02/06/14 Montelukast [Singulair] 10 mg PO DAILY 02/06/14 Sumatriptan Succinate [Imitrex] 100 mg PO .X1 PRN 02/06/14 Venlafaxine HCl [Effexor] 75 mg PO TID 02/06/14 acetaminophen 325 mg tablet 500 mg PO Q6H PRN 07/31/17 ascorbic acid (vitamin C) 1,000 mg 1,000 mg PO DAILY 07/31/17 tablet cholecalciferol (vitamin D3) 25 400 unit PO DAILY 07/31/17 mcg (1,000 unit) capsule docusate sodium 50 mg capsule 100 mg PO 4X/DAY 07/31/17 ferrous sulfate 325 mg (65 mg 65 mg PO DAILY tab 07/31/17 iron) tablet garlic 1 tab PO BID 07/31/17 vitamin A 8,000 unit capsule 10,000 unit PO QDAY 07/31/17 vitamin B complex 1 tab PO QDAY 07/31/17 vitamin E 200 unit capsule 400 unit PO QDAY 07/31/17 zinc acetate 25 mg (zinc) capsule 5 mg PO QDAY 07/31/17 Albuterol Inhaler [Ventolin Hfa 1 - 2 puff INHALATION Q4H PRN PRN 05/28/18 (SP)] Alendronate Sodium [Fosamax] 70 mg PO BONILLA 05/28/18 Calcium Carbonate [Calcium] 600 mg PO DAILY 05/28/18 Cider Vinegar [Apple Cider Vinegar] 450 mg PO DAILY 05/28/18 Cinnamon Bark [Cinnamon] 1,000 mg PO BID 05/28/18 Fluticasone 220 Mcg [Flovent (SP)] 2 puff INHALATION DAILY 05/28/18 Gluc [place]/Chondro Bonilla A/Vit C/Mn 1 ea PO DAILY 05/28/18 [Glucosamine-Chondroitin Cap] Magnesium 250 mg PO TID 05/28/18 [place]-3 Fatty Acids/Fish Oil 1 ea PO DAILY 05/28/18 [[place] 3 1,000 mg Softgel] Turmeric Root Extract [Turmeric] 1,000 mg PO BID 05/28/18 Gabapentin [Neurontin] 1 tab PO TID 08/06/19 Zolpidem Tartrate [Ambien 5 mg PO QHS PRN PRN 08/06/19 (Generic)] - Social History Tobacco Use: non-smoker Vital Signs Temp Pulse Resp BP Pulse Ox 99.0 F 76 16 144/79 H 95 08/07/19 09:00 08/07/19 09:56 08/07/19 09:00 08/07/19 09:00 08/07/19 07:25 Oxygen Delivery Method Room Air Weight: 61.9 kg Body Mass Index (BMI) 24.3 Microbiology Past 72 Hours 08/06/19 00:05 Urine Culture - Preliminary Urine, Catheterized Gram negative pancho 08/05/19 23:55 Blood Culture - Preliminary Blood Culture (Wb) - Anticubital Right Gram negative pancho Laboratory Tests Past 24 Hrs 08/07/19 08/07/19 05:35 05:35 WBC 7.0 RBC 3.06 L Hgb 10.1 L Hct 31.0 L MCV 101.3 H MCH 33.0 H MCHC 32.6 RDW Std Deviation 46.4 H RDW Coeff of Roopa 12.5 Plt Count 130 L MPV 11.3 Immature Gran % (Auto) 0.400 Neut % (Auto) 71.4 H Lymph % (Auto) 16.4 L Cavalier % (Auto) 11.2 H Eos % (Auto) 0.3 Baso % (Auto) 0.3 Absolute Neuts (auto) 5.0 Absolute Lymphs (auto) 1.15 Nucleated RBC % 0 Sodium 139 Potassium 3.1 L Chloride 110 H Carbon Dioxide 24.0 Anion Gap 5 BUN 7 Creatinine 0.72 Estim Creat Clear Calc 61.61 Est GFR (MDRD) Af Amer 103 Est GFR (MDRD) Non-Af 86 BUN/Creatinine Ratio 9.7 L Glucose 124 H Calcium 8.0 L - Other Studies Radiology: [] reviewed Other Studies: [] Route of nutrition/ use of supplements: [] Nutritional Intake: [] IV Site: [] Cruz Catheter: [] - Physical Exam General: Alert, Oriented x3, Cooperative, No apparent distress HEENT: Atraumatic, PERRLA, EOMI Neck: Supple, No Nodes Lungs: Clear to auscultation, Normal air movement Cardiovascular: Regular rate, Regular Rhythm, No murmurs Abdomen: Soft, Non Tender, Non-Distended, - - mild flank pain Extremities: No edema Skin: No rashes IV Site: Peripheral, without redness Musculoskeletal: No Tenderness to Palpation of Joints or Extremities Neurological: Cranial nerves II-XII grossly intact - Assessment/Plan Antibiotics: [] Assessment/Plan: [] Active and Suspected Problems (Last Reviewed 08/03/19 @ 11:41 by Yoko Davalos) Pyelonephritis (Acute) severe sepsis (fever, leukocytosis, MOY, lactic acidosis, tachycardia) due to GNR bacteremia from pyelonephritis - much improved, continue ceftriaxone. No stone or abscess seen on imaging. Plan will be for home on po abx for 7 days total if she continues to improve. Will follow, thank you, d/w nursing and pillowcase cleaner.
[2019-08-07] MEDS: Montelukast 10 MG Tablet PO (22:27)
[2019-08-08] VITALS (8 sets, daily range): BP systolic 126–145; BP diastolic 68–83; PULSE 61–74; RESP 16–18; TEMP 36.8–37.3; O2SAT 94–97
[2019-08-08] MEDS: 0.9% Normal Saline 1,000 ML 100 ML IV ×3 (02:29→23:26)
[2019-08-08] MEDS: Venlafaxine HCl 75 MG Tablet PO ×3 (05:07→22:10)
[2019-08-08] MEDS: Acetaminophen 325 MG Tablet 650 MG PO ×3 (05:07→18:32)
[2019-08-08] MEDS: Gabapentin 100 MG Capsule PO ×3 (05:07→22:10)
[2019-08-08] MEDS: Heparin Injection (Vial) 5,000 UNIT/ML VIAL 5000 UNIT SC ×3 (05:07→22:10)
[2019-08-08] MEDS: Ensure Clear 120 ML Liquid PO ×4 (08:24→22:10)
[2019-08-08] MEDS: Ferrous Sulfate 325 MG Tablet PO (08:26)
[2019-08-08] MEDS: Calcium Carbonate 500 MG Tablet PO (08:26)
[2019-08-08] MEDS: Pantoprazole Sodium 40 MG Tablet PO (08:26)
--- NOTE | 2019-08-08 09:15 | PN_ITS ---
Patient Problems: Active and Suspected Problems (Last Reviewed 08/03/19 @ 11:41 by Yoko Davalos) Pyelonephritis (Acute) Subjective: Chief complaint: Follow-up after admission for acute pyelonephritis, severe sepsis and bacteremia. Patient seen and examined. No acute events overnight. She still complained of flank pain although she was able to sleep the whole night. Denied any fever chills last night, no urinary symptoms. Her vital signs are stable. - Physical Exam Vitals/I&O's: Vital Signs Temp Pulse Resp BP Pulse Ox 98.4 F 66 18 145/78 H 94 08/08/19 08:18 08/08/19 08:18 08/08/19 08:18 08/08/19 08:18 08/08/19 08:18 Oxygen Delivery Method Room Air Weight: 134 lb 14.766 oz Body Mass Index (BMI) 24.3 Intake and Output for Last 24 Hours 08/06/19 08/07/19 08/08/19 23:59 23:59 23:59 Intake Total 4145.00 / 4145.00 2250.00 / 2850.00 2049 Output Total 2100 / 2650 1150 / 2150 1800 / 1800 Balance 2045.00 / 1495.00 1100.00 / 700.00 250 / 250 General: Alert, Oriented x3, Cooperative, No apparent distress HEENT: Atraumatic, PERRLA, EOMI, Normocephalic Oral: Moist Mucosa, No Gingival or Mucosal Lesions/ Ulcerations Neck: Supple, No JVD, Negative Carotid Bruits, Trachea Midline, Thyroid Normal Size and Texture Lungs: Clear to auscultation, Normal air movement, No rhonchi, No wheeze, No rales, Diminished Cardiovascular: Regular rate, Regular Rhythm, Normal S1, Normal S2, PMI Normal Abdomen: Bowel Sounds Present, Soft, Non Tender, Non-Distended, No Hepato- splenomegaly Extremities: No clubbing, No cyanosis, No edema Skin: No rashes, No breakdown Lymphatic: No Cervical, Supraclavicular, or Inguinal Adenopathy Neurological: Cranial nerves II-XII grossly intact, Neuro grossly intact Psych/Mental Status: Normal Affect, Appropriate, Alert and oriented to time, place, person, mood and affect Microbiology Past 72 Hours 08/06/19 00:05 Urine, Catheterized Urine Culture - Final Escherichia coli 08/05/19 23:55 Blood Culture (Wb) - Anticubital Right Blood Culture - Preliminary Escherichia coli Current Medications Acetaminophen (Tylenol) 650 mg PO Q6H PRN PRN PRN Reason: Pain Score 1-5/Temp > 100.7 F Last Admin: 08/08/19 05:07 Dose: 650 mg Documented by: Al Hydroxide/Mg Hydroxide (Mylanta Ii) 30 ml PO Q6H PRN PRN PRN Reason: Gastric Burning Albuterol Sulfate (Ventolin Aerosols) 2.5 mg INHALATION Q2H PRN PRN PRN Reason: Shortness of Breath/Wheezing Last Admin: 08/06/19 06:41 Dose: 2.5 mg Documented by: Calcium Carbonate (Tums) 500 mg PO DAILY [facility] Last Admin: 08/08/19 08:26 Dose: 500 mg Documented by: Cholecalciferol (Vitamin D) 1,000 unit PO DAILY [facility] Last Admin: 08/08/19 08:27 Dose: 1,000 unit Documented by: Ferrous Sulfate (Ferrous Sulfate) 325 mg PO DAILYCM [facility] Last Admin: 08/08/19 08:26 Dose: 325 mg Documented by: Gabapentin (Neurontin) 100 mg PO TID [facility] Last Admin: 08/08/19 05:07 Dose: 100 mg Documented by: Heparin Sodium (Porcine) (Heparin Na) 5,000 unit SC Q8 [facility] Last Admin: 08/08/19 05:07 Dose: 5,000 unit Documented by: Sodium Chloride () 1,000 mls @ 100 mls/hr IV .Q10H [facility] Last Admin: 08/08/19 02:29 Dose: 100 mls/hr Documented by: Sodium Chloride () 250 mls @ 15 mls/hr IV .[id number] PRN PRN Reason: Saline Flush Sodium Chloride () 250 mls @ 15 mls/hr IV .[id number] PRN PRN Reason: Additional IVPB Infusion Ceftriaxone Sodium 2 gm/ (Sodium Chloride) 50 mls @ 100 mls/hr IV Q24 [facility] Last Infusion: 08/07/19 10:36 Dose: Infused Documented by: Lactobacillus Acidophilus (Acidophilus) 1 tablet PO BID [facility] Last Admin: 08/08/19 08:26 Dose: 1 tablet Documented by: Melatonin (Melatonin) 3 mg PO QHS PRN PRN Reason: INSOMNIA Montelukast Sodium (Singulair) 10 mg PO DAILY@2200 [facility] Last Admin: 08/07/19 22:27 Dose: 10 mg Documented by: Nitroglycerin (Nitrostat) 0.4 mg SUBLINGUAL Q5M PRN PRN Reason: CARDIAC/CHEST PAIN Nutritional Formula (Lactose Free) (Ensure Clear) 120 ml PO 4X/DAY [facility] Last Admin: 08/08/19 08:24 Dose: 120 ml Documented by: Ondansetron HCl (Zofran) 4 mg IV Q8H PRN PRN PRN Reason: NAUSEA/VOMITING Last Admin: 08/06/19 08:44 Dose: 4 mg Documented by: Oxycodone HCl (Oxyir) 5 mg PO Q4H PRN PRN PRN Reason: Pain Score 6-10/10 Pantoprazole Sodium (Protonix) 40 mg PO DAILY [facility] Last Admin: 08/08/19 08:26 Dose: 40 mg Documented by: Rizatriptan Benzoate (Maxalt) 10 mg PO DAILY PRN PRN PRN Reason: MIGRAINE SYMPTOMS Last Admin: 08/06/19 14:49 Dose: 10 mg Documented by: Senna/Docusate Sodium (Senokot-S, Freida-Colace) 2 tablet PO BID PRN PRN PRN Reason: Constipation Sodium Chloride () 10 - 40 ml IV UD PRN PRN Reason: SALINE FLUSH Last Admin: 08/06/19 02:05 Dose: 10 ml Documented by: Venlafaxine HCl (Effexor) 75 mg PO TID [facility] Last Admin: 08/08/19 05:07 Dose: 75 mg Documented by: Medical Necessity - Tobacco Use Smoking Status: Never smoker Tobacco Use: Non-smoker Assessment/Plan All Active Problems (Last Reviewed 08/03/19 @ 11:41 by Yoko Davalos) Pyelonephritis (Acute) This is a 63 years old female patient presented to the emergency room because of fever, chills and bilateral flank pain and she was found to have acute pyonephritis with severe sepsis as well as bacteremia. #1 acute pyelonephritis/severe sepsis: Remained on IV Rocephin. She has no more spikes fever overnight, leukocytosis resolved. Still having some flank pain. No urinary symptoms. Other vital signs are stable. Urine culture revealed E. coli, sensitive to Rocephin.. Blood culture E. coli, final is pending. Appreciate infectious disease recommendations. Plan to continue same treatment, anticipate discharge home tomorrow. #2 bacteremia: Secondary to UTI/pyonephritis. She is on IV Rocephin as above. Culture reviewed as above. Plan as above. #3 anxiety/depression: Continue Effexor and melatonin. #4 degenerative joint disease/chronic pain: Stable, continue OxyIR, Tylenol and gabapentin. #5 DVT prophylaxis: Subcu heparin. This note was generated with [employer] dictation software. It may contain incorrect words, spelling, and punctuation that were not noted in checking the note before signing. Code Visit Inpatient E&M: 68978 Subs Hosp L2
[2019-08-08] MEDS: Montelukast 10 MG Tablet PO (22:10)
[2019-08-09] VITALS: PULSE 65
[2019-08-09] MEDS: Acetaminophen 325 MG Tablet 650 MG PO (00:57)
[2019-08-09] MEDS: MELATONIN 3 MG TABLET PO (01:00)
[2019-08-09 02:14] VITALS: BP 124/66; PULSE 64; RESP 18; TEMP 36.8; O2SAT 95
[2019-08-09 04:00] VITALS: PULSE 68
[2019-08-09] MEDS: Venlafaxine HCl 75 MG Tablet PO (05:29)
[2019-08-09] MEDS: Gabapentin 100 MG Capsule PO (05:29)
[2019-08-09] MEDS: Heparin Injection (Vial) 5,000 UNIT/ML VIAL 5000 UNIT SC (05:29)
[2019-08-09 08:15] VITALS: BP 144/76; PULSE 66; RESP 18; TEMP 36.6; O2SAT 97
[2019-08-09] MEDS: 0.9% Normal Saline 1,000 ML 100 ML IV (08:45)
[2019-08-09] MEDS: Pantoprazole Sodium 40 MG Tablet PO (08:46)
[2019-08-09] MEDS: Ferrous Sulfate 325 MG Tablet PO (08:46)
[2019-08-09] MEDS: Calcium Carbonate 500 MG Tablet PO (08:46)
--- NOTE | 2019-08-09 09:04 | PCM.DC ---
- Discharge Diagnoses Current Active Problems: Current Active and Chronic Problems (Last Reviewed 08/03/19 @ 11:41 by Yoko Davalos) Pyelonephritis (Acute) Anxiety and depression (Chronic) You will use the following diet at home:: Regular Your food should be the consistency of: Regular Discharge Activity: Return to Normal Activity Weight Bearing Status: Weight bearing as tolerated Call your doctor if you observe: Fever of 101 or Higher, Shortness of breath, Dizziness, Fainting spells, Chest pain, Increased palpitations (irregular heartbeat), Uncontrolled pain Allergies/Adverse Reactions: Allergies chocolate flavor Allergy (Verified 08/05/19 22:39) Unknown fexofenadine [From Ariadna] Allergy (Verified 08/05/19 22:39) Unknown pineapple Allergy (Verified 08/05/19 22:39) Unknown amoxicillin [Amoxicillin] Adverse Reaction (Verified 08/05/19 22:39) Other bupropion HCl [From Wellbutrin] Adverse Reaction (Verified 08/05/19 22:39) Other morphine Adverse Reaction (Verified 08/05/19 22:39) Itching cosmetics Allergy (Uncoded 08/05/19 22:39) Unknown nuts Allergy (Uncoded 08/05/19 22:39) Unknown ADVACODO Adverse Reaction (Uncoded 08/05/19 22:39) Unknown Medications to take at Discharge Lansoprazole [Prevacid] 30 mg PO DAILY 02/06/14 Montelukast [Singulair] 10 mg PO DAILY 02/06/14 Sumatriptan Succinate [Imitrex] 100 mg PO .X1 PRN 02/06/14 Venlafaxine HCl [Effexor] 75 mg PO TID 02/06/14 acetaminophen 325 mg tablet 500 mg PO Q6H PRN 07/31/17 ascorbic acid (vitamin C) 1,000 mg tablet 1,000 mg PO DAILY 07/31/17 cholecalciferol (vitamin D3) 25 mcg (1,000 unit) capsule 400 unit PO DAILY 07/31/17 docusate sodium 50 mg capsule 100 mg PO 4X/DAY 07/31/17 ferrous sulfate 325 mg (65 mg iron) tablet 65 mg PO DAILY tab 07/31/17 garlic 1 tab PO BID 07/31/17 vitamin A 8,000 unit capsule 10,000 unit PO QDAY 07/31/17 vitamin B complex 1 tab PO QDAY 07/31/17 vitamin E 200 unit capsule 400 unit PO QDAY 07/31/17 zinc acetate 25 mg (zinc) capsule 5 mg PO QDAY 07/31/17 Albuterol Inhaler [Ventolin Hfa] 1 - 2 puff INHALATION Q4H PRN PRN 05/28/18 Alendronate Sodium [Fosamax] 70 mg PO ESTRADA 05/28/18 Calcium Carbonate [Calcium] 600 mg PO DAILY 05/28/18 Cider Vinegar [Apple Cider Vinegar] 450 mg PO DAILY 05/28/18 Cinnamon Bark [Cinnamon] 1,000 mg PO BID 05/28/18 Fluticasone 220 Mcg [Flovent 220 Mcg] 2 puff INHALATION DAILY 05/28/18 Gluc [place]/Chondro [place] A/Vit C/Mn [Glucosamine-Chondroitin Cap] 1 ea PO DAILY 05/28/18 Magnesium 250 mg PO TID 05/28/18 [place]-3 Fatty Acids/Fish Oil [[place] 3 1,000 mg Softgel] 1 ea PO DAILY 05/28/18 Turmeric Root Extract [Turmeric] 1,000 mg PO BID 05/28/18 Gabapentin [Neurontin] 1 tab PO TID 08/06/19 Zolpidem Tartrate [Ambien] 5 mg PO QHS PRN PRN 08/06/19 Cefdinir [Omnicef [equiv]] 300 mg PO Q12H #20 cap 08/09/19 The following prescriptions were given: Cefdinir [Omnicef [equiv]] 300 mg PO Q12H #20 cap Prescription Printed Primary Care Physician: Mariana James DO [Primary Care Provider] - Please follow up with your Primary Care Physician in: 1-2 weeks. Test Results: Test results from this visit will be discussed in further detail at your follow-up appointment, if applicable.
[2019-08-09 09:05] VITALS: BP 144/76; PULSE 66; RESP 18; TEMP 36.6; O2SAT 97
[2019-08-09 10:00] VITALS: PULSE 64
--- NOTE | 2019-08-09 12:08 | PCM.DC.SUM ---
Discharge Date and Diagnosis Date of Admission: 08/06/19 Date of Discharge: 08/09/19 - Primary Discharge Diagnosis #1 E. coli acute pyelonephritis. #2 E. coli bacteremia. - Secondary Discharge Diagnosis Chronic Problems (Last Reviewed 08/03/19 @ 11:41 by Yoko Davalos) Anxiety and depression (Chronic) Degenerative disc disease, cervical (Chronic) Hospital Course and Treatment Imaging Results: Clinical Impression(s) from Imaging Studies Abdomen/Pelvis CT 08/06/19 22:59 IMPRESSION: Mild fat stranding along the inferior pole of the right kidney. There is urothelial enhancement of the right ureter concerning for underlying infectious/inflammatory process and urinary tract infection. Early pyelonephritis not excluded involving the right kidney inferior pole. Electronically Signed: Sherwinomkar John, at 0:45 EST Tel , Service support , Dr. Dietz, infectious disease. Operations: None Procedures: None Summary of Care Provided: Patient seen and examined on the day of discharge and appeared to be stable to be discharged home. Symptoms improved and she has been afebrile for more than 24 hours. Denies urinary symptoms. Her vital signs are stable. The patient is a 63 year old F patient presented to the emergency room because of fever, chills and bilateral flank pain more on the right flank and she was found to have acute pyelonephritis with severe sepsis and also found to have E. coli bacteremia. On admission, CT scan abdomen and pelvis with IV contrast revealed mild fat stranding along the inferior pole of the right kidney consistent with acute pyelonephritis. There was no evidence of abscess or fluid collection. Patient did have severe sepsis. She was treated with IV Rocephin, IV fluids, IV pain medications and IV antiemetics. Her urine culture revealed E. coli. Also, she was found to have bacteremia, blood culture revealed E. coli and the source of this bacteremia is the urinary tract infection. Patient symptoms improved but she continued to have spikes of high-grade fever. With IV antibiotic therapy, her symptoms improved, white blood cell count improved and she remained afebrile for more than 40 hours. Her kidney function was stable. Patient discharged home in a stable medical condition, discharged on cefdinir 300 mg p.o. twice daily for 10 days to complete total of 2 weeks of treatment for acute pyelonephritis and bacteremia, continued on her previous home medications without any changes, recommended from with PCP in 1 to 2 weeks. - Physical Exam Vitals/I&O's: Vital Signs Temp Pulse Resp BP Pulse Ox 97.9 F 66 18 144/76 H 97 08/09/19 08:15 08/09/19 08:15 08/09/19 08:15 08/09/19 08:15 08/09/19 08:15 Oxygen Delivery Method Room Air Weight: 133 lb 9.602 oz Body Mass Index (BMI) 24.3 Intake and Output for Last 24 Hours 08/07/19 08/08/19 08/09/19 23:59 23:59 23:59 Intake Total 2250.00 / 2850.00 5100.00 / 5100.00 1711.67 / 1711.67 Output Total 1150 / 2150 4000 / 4000 1900 / 1900 Balance 1100.00 / 700.00 1100.00 / 1100.00 -188.33 / -188.33 General: Alert, Oriented x3, Cooperative, No apparent distress HEENT: Atraumatic, PERRLA, EOMI, Normocephalic Oral: Moist Mucosa, No Gingival or Mucosal Lesions/ Ulcerations Neck: Supple, No JVD, Negative Carotid Bruits, Trachea Midline, Thyroid Normal Size and Texture Lungs: Clear to auscultation, Normal air movement, No rhonchi, No wheeze, No rales Cardiovascular: Regular rate, Regular Rhythm, Normal S1, Normal S2, PMI Normal Abdomen: Bowel Sounds Present, Soft, Non Tender, Non-Distended, No Hepato-splenomegaly Extremities: No clubbing, No cyanosis, No edema Skin: No rashes, No breakdown Lymphatic: No Cervical, Supraclavicular, or Inguinal Adenopathy Neurological: Cranial nerves II-XII grossly intact, Neuro grossly intact Psych/Mental Status: Normal Affect, Appropriate Microbiology Past 72 Hours 08/05/19 23:25 Blood Culture (Wb) - Anticubital Left Blood Culture - Preliminary No growth in 48 hours. 08/06/19 00:05 Urine, Catheterized Urine Culture - Final Escherichia coli 08/05/19 23:55 Blood Culture (Wb) - Anticubital Right Blood Culture - Preliminary Escherichia coli Discharge Activity: Return to Normal Activity Weight Bearing Status: Weight bearing as tolerated Call your doctor if you observe: Fever of 101 or Higher, Shortness of breath, Dizziness, Fainting spells, Chest pain, Increased palpitations (irregular heartbeat), Uncontrolled pain Home Medications: Medications to take at Discharge Lansoprazole [Prevacid] 30 mg PO DAILY 02/06/14 Montelukast [Singulair] 10 mg PO DAILY 02/06/14 Sumatriptan Succinate [Imitrex] 100 mg PO .X1 PRN 02/06/14 Venlafaxine HCl [Effexor] 75 mg PO TID 02/06/14 acetaminophen 325 mg tablet 500 mg PO Q6H PRN 07/31/17 ascorbic acid (vitamin C) 1,000 mg tablet 1,000 mg PO DAILY 07/31/17 cholecalciferol (vitamin D3) 25 mcg (1,000 unit) capsule 400 unit PO DAILY 07/31/17 docusate sodium 50 mg capsule 100 mg PO 4X/DAY 07/31/17 ferrous sulfate 325 mg (65 mg iron) tablet 65 mg PO DAILY tab 07/31/17 garlic 1 tab PO BID 07/31/17 vitamin A 8,000 unit capsule 10,000 unit PO QDAY 07/31/17 vitamin B complex 1 tab PO QDAY 07/31/17 vitamin E 200 unit capsule 400 unit PO QDAY 07/31/17 zinc acetate 25 mg (zinc) capsule 5 mg PO QDAY 07/31/17 Albuterol Inhaler [Ventolin Hfa] 1 - 2 puff INHALATION Q4H PRN PRN 05/28/18 Alendronate Sodium [Fosamax] 70 mg PO BONILLA 05/28/18 Calcium Carbonate [Calcium] 600 mg PO DAILY 05/28/18 Cider Vinegar [Apple Cider Vinegar] 450 mg PO DAILY 05/28/18 Cinnamon Bark [Cinnamon] 1,000 mg PO BID 05/28/18 Fluticasone 220 Mcg [Flovent 220 Mcg] 2 puff INHALATION DAILY 05/28/18 Gluc [place]/Chondro [place] A/Vit C/Mn [Glucosamine-Chondroitin Cap] 1 ea PO DAILY 05/28/18 Magnesium 250 mg PO TID 05/28/18 [place]-3 Fatty Acids/Fish Oil [[place] 3 1,000 mg Softgel] 1 ea PO DAILY 05/28/18 Turmeric Root Extract [Turmeric] 1,000 mg PO BID 05/28/18 Gabapentin [Neurontin] 1 tab PO TID 08/06/19 Zolpidem Tartrate [Ambien] 5 mg PO QHS PRN PRN 08/06/19 Cefdinir [Omnicef [equiv]] 300 mg PO Q12H #20 cap 08/09/19 Following Prescrptions Were Given to Patient: Cefdinir [Omnicef [equiv]] 300 mg PO Q12H #20 cap Prescription Printed Primary Care Physician: Mariana James DO [Primary Care Provider] - Please follow up with your Primary Care Physician in: 1-2 weeks. Disposition: Home Minutes spent on discharge:: 32 Patient Condition:: Stable Medical Necessity - Tobacco Use Smoking Status: Never smoker Tobacco Use: Non-smoker Meaningful Use Info Meaningful Use Diagnoses (Choose all that apply): None applicable Code Visit Inpatient E&M: 16899 Disch Hosp
--- NOTE | 2019-08-10 14:56 | CASEMGMT ---
PABLO GRAF DC PHONE CALL DC DATE: 08.09.2019 DC Disposition: Home Diagnosis on Discharge: Pyelonephritis LACE/STRATA: E.coli Bacteremia Call to pt @ home. Intro role of CM to pt. No questions re: instructions, f/u or medications. Pt states she will make f/u appt, but not today. States she is feeling better but still not feeling well. PABLO GRAF encouraged pt to make f/u appt and let physician office know if she is not improving. Pt is agreeable to this, states no further questions or concerns. No care improvement suggestions were given. BILLY Metz RN ACM
== END 2019-08-09 11:05 | disposition home or self-care (01) | DRG 872 ==
LOC: ED 08-06 00:55 → MS3 08-06 01:19
PROVIDERS: Admitting Provider Internal Medicine; Emergency Provider Emergency Medicine; Family Provider Family Medicine; PCP Family Medicine; Referring Provider Internal Medicine; Visit Provider Hospitalist
DX: A41.51 Sepsis due to Escherichia coli [E. coli] (principal); N10 Acute pyelonephritis; N17.9 Acute kidney failure, unspecified; R65.20 Severe sepsis without septic shock; K58.0 Irritable bowel syndrome with diarrhea; F32.9 Major depressive disorder, single episode, unspecified; F41.9 Anxiety disorder, unspecified; K21.9 Gastro-esophageal reflux disease without esophagitis; M19.90 Unspecified osteoarthritis, unspecified site; J45.909 Unspecified asthma, uncomplicated; Z85.820 Personal history of malignant melanoma of skin; Z79.899 Other long term (current) drug therapy; Z79.51 Long term (current) use of inhaled steroids; M50.30 Other cervical disc degeneration, unspecified cervical region; G89.29 Other chronic pain
CPT/HCPCS: 36415; 74177; 80048; 80053; 81001; 83605; 83690; 85025; 87040; 87077; 87086; 87088; 87186; 94640; 97110; 97116; 97161; 97165; 97802; 99251; 99285; J7030; J7050; Q9967; A4216; G0463; J0696; J2405

== ENCOUNTER → 2019-08-21 13:43 | Outpatient (CLI) | payer MEDICARE, MEDICAID, SELFPAY ==
[2019-08-06 01:34] VITALS: BMI 24.3
--- NOTE | 2019-08-21 12:00 | VUL_PTH ---
PATIENT: ALISHA AG LOC: [facility] U#:[id number] AGE/SX: 69/F ROOM: RE08/21/[address]: Dr. Glory Deal MD : [id number] BED: DIS: SPEC #: [id number] RECD: 08/21/19 15:29 STATUS: VALENTIN TUCKER #: [id number] ABDULKADIR: 08/21/19 12:[address]: Glory Deal DEPT: SURGICAL PATHOLOGY RECD BY: Belkis Rowell ENTERED: 08/24/19 11:47 SP TYPE: VULVA BX OTHR DR: Dr. Mariana James, DO Tissues: Vulva, NOS Procedures: Surgery Specimen Level IV HEADER OPERATION: Vulvar biopsy PRE-OP DIAGNOSIS: History of lichen sclerosus; multiple patches of lichen planus; rule out vulvar cancer TISSUE SUBMITTED: 3 mm punch biopsy vulva MICROSCOPIC DIAGNOSIS Vulva, punch biopsy: Consistent with lichen sclerosus. Hyperkeratosis. Negative for malignancy. LIS:hawa 08/25/19 COMMENT Clinical correlation and appropriate follow up are necessary. MICROSCOPIC DESCRIPTION Slides are reviewed. GROSS DESCRIPTION Received is one container labeled with the patient's name and not further designated. The specimen consists of a punch biopsy of segura-white skin measuring 0.1 cm in diameter and 0.3 cm in length. The specimen is totally submitted in one cassette. / LIS:hawa 08/24/19 TC:5 CPT: 60116
== END ==
PROVIDERS: PCP Family Medicine; Referring Provider Family Medicine; Visit Provider Family Medicine
DX: L43.9 Lichen planus, unspecified (principal)
CPT/HCPCS: 88305

== ENCOUNTER 2019-10-03 20:21 | Emergency (ER) | payer MEDICARE, MEDICAID, SELFPAY ==
[2019-08-06 01:34] VITALS: BMI 24.3
[2019-10-03 20:22] VITALS: BP 159/93; PULSE 105; RESP 18; TEMP 36.7; O2SAT 95; BMI 25.2
--- NOTE | 2019-10-03 20:42 | ED.VIS.GEN ---
History of Present Illness Chief Complaint: Cough Informant: Patient Onset: Weeks Narrative: Patient with a cough for 2 weeks, [facility] status post 1 week of antibiotics finished 4 days ago. Still coughing however today noted increasing myalgias chills and sweats. No fevers. No flu vaccination this year. History of asthma and arthritis. Denies dyspnea or chest pain, no vomiting or diarrhea. Took Tylenol at 5:30 PM. Also on diclofenac for her rheumatoid arthritis taken today. Past Medical History - Allergies and Home Meds Allergies/Adverse Reactions: Allergies chocolate flavor Allergy (Verified 10/03/19 20:21) Unknown fexofenadine [From Ariadna] Allergy (Verified 10/03/19 20:21) Unknown pineapple Allergy (Verified 10/03/19 20:21) Unknown amoxicillin [Amoxicillin] Adverse Reaction (Verified 10/03/19 20:21) Other bupropion HCl [From Wellbutrin] Adverse Reaction (Verified 10/03/19 20:21) Other egg Adverse Reaction (Verified 10/03/19 20:25) Other I GET A MIGRAINE. morphine Adverse Reaction (Verified 10/03/19 20:21) Itching cosmetics Allergy (Uncoded 10/03/19 20:21) Unknown nuts Allergy (Uncoded 10/03/19 20:21) Unknown ADVACODO Adverse Reaction (Uncoded 10/03/19 20:21) Unknown Primary Care Physician: Mariana James DO [Primary Care Provider] - Past Medical History: - - Arthritis, asthma Surgical History: - - Status post ACLS repair, laparoscopic surgery for blood clot on left fallopian tube Smoking Status: Never smoker - Family History Maternal Family History: Family History (Last Reviewed 08/17/19 @ 09:48 by Yoko Davalos) Other Asthma Colon cancer Family History: Reports: Diabetes, Heart Disease, Hypertension Paternal Family History: Family History (Last Reviewed 08/17/19 @ 09:48 by Yoko Davalos) Other Asthma Colon cancer Family History: Reports: Cancer - skin Review of Systems General: Reports: Chills, Sweats. Denies: Fever Eyes: Denies: Visual changes - bilaterally, Diplopia ENT: Denies: Rhinorrhea, Sore throat Cardiovascular: Denies: Chest pain, Palpitations Respiratory: Reports: Cough. Denies: Dyspnea, Dyspnea on exertion Gastrointestinal: Denies: Abdominal pain, Nausea, Vomiting, Diarrhea, Melena, Hematochezia Genitourinary: Denies: Dysuria, Hematuria, Frequency Musculoskeletal: Denies: Back pain, Extremity Pain Skin: Denies: Rash, Wounds Neurological: Denies: Headache, Weakness, Numbness Physical Exam Vital Signs/Narrative: Vital Signs Temp Pulse Resp BP Pulse Ox 10/03/19 20:22 98.1 F 105 H 18 159/93 H 95 General: Well nourished, Well developed, No Acute Distress Head: Normocephalic, Atraumatic Eyes: Perrl, EOMI ENT: Moist mucous membranes, No rhinorrhea Neck: Supple, Nontender Cardiovascular: Regular rate, Regular rhythm, No murmurs, Tachycardia Respiratory: No distress, CTA bilaterally, Chest nontender Abdomen: Soft, Nontender, Nondistended, Normal bowel sounds Back: Nontender, Normal Inspection Extremities: Nontender, No edema Skin: Normal color, No rash Neurological: Alert, Oriented x3, Cranial nerves II-XII grossly intact, Normal Strength, Normal Sensation Psychological: Normal affect, Normal Mood Diagnostic/Tx/Re-eval - Medical Decision Making Clinical Impression(s) from Imaging Studies Chest X-Ray 10/03/19 20:49 IMPRESSION: Normal x-ray examination of the chest. Electronically Signed: Pal Girard MD at 21:33 EST Tel , Service support , Patient nontoxic. Influenza negative. Chest x-ray negative. Discussed bronchitis symptoms. Discussed continuing Tylenol and her diclofenac. Continue oral hydration. Signs and symptoms discussed to return otherwise follow-up with her PCP. All questions were answered. ED Disposition - Plan for ED Patient: Disposition: Home or Assisted Living Diagnosis: Bronchitis Instructions: BRONCHITIS, No Antibiotic (Adult) Referrals: Mariana James DO [Primary Care Provider] - 3-5 Days if not improving
--- NOTE | 2019-10-03 20:49 | RAD_ITS ---
STUDY: X-RAY CHEST REASON FOR EXAM: Female, 64 years old. COUGH, CONGESTION, FEVER AND BODY ACHES. TONIGHT REPORTS SHAKINESS TECHNIQUE: PA and lateral views of the chest. COMPARISON: 09/13/2018 FINDINGS: The lungs are clear and expanded. There is no demonstrated pleural abnormality. Normal size heart. Normal mediastinum and cata. Normal visualized pulmonary arteries. Normal visualized aortic arch and descending thoracic aorta. Normal visualized thoracic spine. Normal visualized ribs, clavicles, and shoulders. There is no demonstrated abnormality of the visualized soft tissue structures of the upper abdomen. RAD/Chest PA and Lateral IMPRESSION: Normal x-ray examination of the chest. Electronically Signed: Pal Girard MD at 21:33 EST Tel , Service support ,
== END 2019-10-03 21:49 | disposition home or self-care (01) ==
PROVIDERS: Emergency Provider Emergency Medicine; PCP Family Medicine
DX: J40 Bronchitis, not specified as acute or chronic (principal); M06.9 Rheumatoid arthritis, unspecified; Z79.899 Other long term (current) drug therapy
CPT/HCPCS: 71046; 87804; 99282

== ENCOUNTER → 2020-03-29 | Outpatient (CLI) | payer MEDICARE, MEDICAID, SELFPAY | END | disposition home or self-care (01) | LOC: MTDU 17:41 | PROVIDERS: PCP Family Medicine; Referring Provider Nurse Practitioner Family; Visit Provider Nurse Practitioner Family | DX: J32.9 Chronic sinusitis, unspecified (principal) | CPT/HCPCS: 87635; C9803; U0003 ==

== ENCOUNTER → 2020-08-05 07:07 | Outpatient (CLI) | payer MEDICARE, MEDICAID, SELFPAY ==
[2020-08-05 07:40] LABS: Absolute Lymphocyte Count 2.96 X10^3/uL (0.83-4.51); Absolute Neutrophil Count 2.6 X10^3/uL (2.0-7.7); Basophil# 0.04 X10^3/uL; Basophil% 0.6 % (0-1); Eosinophil# 0.17 X10^3/uL; Eosinophils% 2.7 % (0-5); Hematocrit 43.9 % (37-47); Lymphocyte # 2.96 X10^3/ul (4.0); Mean Corp Hgb Conc 31.9 g/dL (32-36); Mean Corpuscular Hgb 33.2 pg (27.0-32.0); Monocyte# 0.53 X10^3/uL; Monocyte% 8.4 % (0-10); NRBC Flagged by Analyzer 0 % (0-5); Neutrophil # 2.59 X10^3/uL (2.7-7.7); Neutrophil % 41.1 % (47-70); Platelet Count 231 K/mm3 (150-450); RBC Distribution Width CV 13.3 % (11.6-14.6); RBC Distribution Width SD 51.6 fl (35.1-43.9); Red Blood Count 4.22 M/mm3 (4.2-5.4); White Blood Count 6.3 K/mm3 (4.4-11.0)
[2020-08-05 08:16] LABS: ALB/GLOB Ratio 1.1 RATIO (0.9-2.4); AST(SGOT) 12 U/L (15-37); Alanine Aminotransfer ALT/SGPT 20 U/L (13-56); Albumin, Serum 3.8 g/dL (3.2-5.0); Alkaline Phosphatase 93 U/L (45-117); Anion Gap 2 (5-15); BUN 17 mg/dL (7-18); BUN/Creat Ratio 20.8 RATIO (10-20); Calcium,Total 9.4 mg/dL (8.5-10.1); Chloride 110 mmol/L (98-107); Cholesterol 275 mg/dL (200); Creatinine, Serum 0.82 mg/dL (0.55-1.02); EST Glomerular Filtration Rate 74 mL/min (>60); Est Glom Filt Rate - Afr Amer 90 mL/min (>60); Globulin 3.4 g/dL (2.2-4.2); Glucose 95 mg/dL (74-106); High Density Lipoprotein 76 mg/dL; Potassium 4.1 mmol/L (3.5-5.1); Protein, Total 7.2 g/dL (6.4-8.2); Sodium Level 143 mmol/L (136-145); Triglycerides 97 mg/dL; Very Low Density Lipoprotein 19 mg/dL (5-40)
== END ==
PROVIDERS: PCP Family Medicine; Referring Provider Family Medicine; Visit Provider Family Medicine
DX: Z00.00 Encounter for general adult medical examination without abnormal findings (principal); E78.5 Hyperlipidemia, unspecified; M85.50 Aneurysmal bone cyst, unspecified site; K21.9 Gastro-esophageal reflux disease without esophagitis; R53.83 Other fatigue; Z51.81 Encounter for therapeutic drug level monitoring
CPT/HCPCS: 36415; 80053; 80061; 85025

== ENCOUNTER → 2020-08-25 11:05 | Outpatient (CLI) | payer MEDICARE, MEDICAID, SELFPAY ==
--- NOTE | 2020-08-25 11:06 | BI_ITS ---
MAMMOGRAPHY - BILATERAL SCREENING REASON FOR EXAM: Female, 65 years old. Routine annual screening examination. PERTINENT HISTORY: Non-contributory. Remote left excisional breast biopsy. TECHNIQUE: Digital bilateral breast lucinda (3D mammographic acquisition) in the CC and MLO projections. 2-D mediolateral oblique (MLO) and craniocaudad (CC) views of both breasts were obtained. CAD: Full Field Digital Mammography with Computer Added Detection was performed. COMPARISON: Comparison is made with prior study dated 06/26/2019 and 06/25/2018.. FINDINGS: Breast Composition: The breasts are heterogeneously dense, which may obscure small masses. There are no dominant masses or suspicious calcifications. No other significant abnormalities are identified. There has been no significant change since the prior study. BI/SCRN MAMM (CAD)W/LUCINDA BILAT IMPRESSION: Stable bilateral screening mammogram. Yearly follow-up mammogram recommended. (A) ASSESSMENT CATEGORY: BIRADS Category 1: Negative. A letter regarding these results will be sent to the patient by the facility within 30 days. Approximately 10% of breast cancers are not detected by mammography. A normal mammogram should not delay biopsy of a clinically suspicious abnormality. [id number] Electronically Signed: Dimitri Ordonez MD at 12:20 EST , Service support ,
--- NOTE | 2020-08-25 11:08 | BD_ITS ---
STUDY: DUAL ENERGY X-RAY ABSORPTIOMETRY / DXA REASON FOR EXAM: Female, 65 years old. 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 COMPARISON: Comparison is made with prior study dated 05/15/2011. FINDINGS: Lumbar Spine (L1-L4): g/cm2 (1.198) / T-score (0.2) / Z-score (1.8) Findings are suggestive of normal bone density with a low fracture risk. Left Femur Total: g/cm2 (0.924) / T-score (-0.7) / Z-score (0.6) Left Femoral Neck: g/cm2 (0.851) / T-score (-1.3) / Z-score (0.2) Right Femur Total: g/cm2 (0.852) / T-score (-1.2) / Z-score (0.1) Right Femoral Neck: g/cm2 (0.794) / T-score (-1.8) / Z-score (-0.2) The T-Scores on the most recent prior examination were: Lumbar Spine (L1-L4): There has been improvement of bone density since the previous examination. Left Femur Total: which represents a worsening of 8.6%. Right Femur Total: which represents a worsening of 3.4%. BD/Dexa Bone Density Study IMPRESSION: The patient is considered osteopenic as outlined below according to World [place] Organization (WHO) criteria with a moderate fracture risk. There has been worsening of bone density since the previous examination. Reference Information: The T-score is the number of standard deviations above or below the standard which is normal for young adults at their peak bone mineral density. The World Health Organization (WHO) interprets the T-scores as follows: Above -1 Normal bone density Between -1 and -2.5 Osteopenia Equal to / or below -2.5 Osteoporosis As a practical clinical guideline, osteopenia may be graded as follows: Mild -1 through -1.5 Moderate -1.6 through -2.0 Severe -2.1 through -2.4 The Z-score is the number of standard deviations above or below age-matched controls. A Z-score of less than -1.5 would be considered abnormal. References: 1. NIH Osteoporosis and Related Bone Diseases www osteo.org 2. International Society for Clinical Densitometry www iscd.org 3. National Osteoporosis Foundation www nof.org Electronically Signed: Dmiitri Ordonez MD at 13:29 EST , Service support ,
== END ==
PROVIDERS: PCP Family Medicine; Referring Provider Family Medicine; Visit Provider Family Medicine
DX: M85.89 Other specified disorders of bone density and structure, multiple sites (principal); Z12.31 Encounter for screening mammogram for malignant neoplasm of breast
CPT/HCPCS: 77063; 77067; 77080

== ENCOUNTER → 2021-01-13 16:13 | Outpatient (CLI) | payer MEDICARE, MEDICAID, SELFPAY ==
--- NOTE | 2021-01-13 16:17 | RAD_ITS ---
STUDY: X-RAY - LUMBAR SPINE REASON FOR EXAM: Female, 65 years old. RIGHT FOOT DROP TECHNIQUE: 5 view(s) of the lumbar spine were obtained. COMPARISON: 04/24/2019 FINDINGS: Normal lumbar lordosis. Mild dextroscoliosis centered at L4. 5 mm of anterolisthesis of L3 on L4 and 2 mm of anterolisthesis of L4 on L5 which is unchanged. There is multilevel endplate spondylosis of the lumbar vertebrae. There is multi-level degenerative disc disease with multi-level disc space narrowing. The soft tissue structures are unremarkable. RAD/L/S Spine Min 4 Views IMPRESSION: Mild dextroscoliosis with degenerative disc disease as described above. MRI would be useful. Electronically Signed: Pal Girard MD at 16:46 EDT Tel , Service support ,
== END ==
PROVIDERS: PCP Family Medicine; Referring Provider Family Medicine; Visit Provider Family Medicine
DX: M21.371 Foot drop, right foot (principal)
CPT/HCPCS: 72110

== ENCOUNTER 2021-01-26 17:29 | Emergency (ER) | payer MEDICARE, MEDICAID, SELFPAY ==
[2021-01-26 17:31] VITALS: BP 123/79; PULSE 72; RESP 14; TEMP 36.2; O2SAT 95; BMI 28.2
--- NOTE | 2021-01-26 18:32 | EKG12_ITS ---
Test Reason : DYSRHYTHMIA Blood Pressure : / mmHG Vent. Rate : 066 BPM Atrial Rate : 066 BPM P-R Int : 184 ms QRS Dur : 080 ms QT Int : 386 ms P-R-T Axes : 064 -05 053 degrees QTc Int : 404 ms Normal sinus rhythm Normal ECG Confirmed by PETER ADAMS, ADAM ([id number]), photography editor LEYLA MANCIA ([id number]) on 01/27/2021 1:00:55 PM Referred By: ANIYA Confirmed By:ADAM GREEN MD
[2021-01-26 19:14] LABS: Absolute Lymphocyte Count 2.38 X10^3/uL (0.83-4.51); Absolute Neutrophil Count 2.7 X10^3/uL (2.0-7.7); Basophil# 0.04 X10^3/uL; Basophil% 0.7 % (0-1); Eosinophil# 0.11 X10^3/uL; Eosinophils% 1.9 % (0-5); Hematocrit 44.5 % (37-47); Hemoglobin 14.2 g/dL (12.0-15.0); Lymphocyte # 2.38 X10^3/ul (0.83-4.51); Lymphocyte % 41.5 % (19-41); Mean Corp Hgb Conc 31.9 g/dL (32-36); Mean Corpuscular Volume 103.5 fL (81-99); Mean Platelet Vol. 9.9 fl (6.2-12.0); Monocyte# 0.47 X10^3/uL; Monocyte% 8.2 % (0-10); NRBC Flagged by Analyzer 0 % (0-5); Neutrophil # 2.74 X10^3/uL (2.7-7.7); Neutrophil % 47.7 % (47-70); Platelet Count 232 K/mm3 (150-450); RBC Distribution Width CV 13.5 % (11.6-14.6); RBC Distribution Width SD 51.7 fl (35.1-43.9); White Blood Count 5.7 K/mm3 (4.4-11.0)
[2021-01-26 19:32] LABS: International Normalized Ratio 0.9; Prothrombin Time (Protime)PT. 11.9 SECONDS (11.7-14.9)
[2021-01-26 19:33] LABS: Partial Thromboplast Time 31.4 Seconds (24.1-36.2)
[2021-01-26 19:36] LABS: Bedside Glucose 102 mg/dL (70-110)
--- NOTE | 2021-01-26 19:42 | MRI_ITS ---
We are attempting to reach an attending provider to discuss findings. An addendum with communication details will be sent when the communication is complete. HISTORY: Back pain, loss of bladder control, rt foot drop EXAMINATION: MR Spine Lumbar WO/W Contrast TECHNIQUE: Multiplanar and multisequence MR images of the lumbar spine. IV Contrast dosage and agent: dotarem 14ml COMPARISON: January 13, 2021 lumbar x-ray. Lumbar spine MRI 09/09/2018. FINDINGS: VERTEBRAE: Normal general bone marrow signal. No fracture or compression deformity. T11-T12 chronic fat signal endplate degenerative change. No aggressive osseous lesion. Preserved lumbar lordosis with degenerative grade 1 anterolisthesis L3 on L4 and L4 and L5. CORD: Conus medullaris at T12-L1. Image portion of cord is normal in signal without abnormal intra or extramedullary enhancement. L1/L2: Small circumferential disc bulge with facet arthropathy and ligamentum hypertrophy, together causing mild spinal canal stenosis and lateral recess narrowing with minimal neuroforamina narrowing L2/L3: Moderate circumferential disc bulge with mild facet arthropathy and moderate ligamentum flavum hypertrophy, together causing severe spinal canal stenosis and lateral recess narrowing with central displacement and possible compression of the cauda equina. Moderate right and severe left neuroforaminal stenosis with mass-effect on the exiting L2 nerve roots L3/L4: Moderate circumferential disc bulge with uncovering of the posterior superior disc by listhesis. Severe bilateral facet arthropathy and moderate ligamentum flavum hypertrophy. Together findings cause severe spinal canal stenosis with central mass-effect and possible compression of the cauda equina. Severe bilateral neuroforaminal stenosis. L4/L5: Moderate circumferential disc bulge with uncovering of the posterior superior disc by listhesis. Severe bilateral facet arthropathy and mild ligamentum flavum hypertrophy. Together findings cause severe spinal canal stenosis with central mass-effect and compression of the cauda equina. Severe bilateral neuroforaminal stenosis. L5/S1: Normal disc height and morphology. Normal spinal canal, lateral recesses and neuroforamina. SOFT TISSUES: Enhancing right renal cyst, no imaging follow-up required. MRI/Spine Lumbar W/WO Contrast IMPRESSION: Diffuse spondylosis with small disc bulges, mild listhesis, and severe posterior element disease causing severe spinal canal stenosis L2-L3, L3-L4, and L4-5 and neuroforaminal stenosis as above. Central spinal stenosis is worsened at L3-L4 and L4-L5 compared with 09/09/2018, most severe at L4-5 with compression of the cauda equina. Possible compression cauda equina at L3-L4 and L2-L3. Correlate with distribution of symptoms. No acute osseous finding. at 2344 Reported and signed by: Tae Hickman MD Electronically Signed: Tae Hickman MD at 23:43 EDT Tel , Service support ,
[2021-01-26 20:03] LABS: Bacteria 0 SEEN /hpf (None Seen); Mucous, Urine 0 SEEN /hpf (<or=2+); Red Blood Cells-Urine 0 SEEN /hpf (0-5); White Blood Cells 0 SEEN /hpf (0-5)
--- NOTE | 2021-01-26 20:10 | RAD_ITS ---
INDICATION: Stroke EXAMINATION/TECHNIQUE: X-RAY - XR Chest 1 View COMPARISON: None. FINDINGS: The lungs are clear. The cardiomediastinal silhouette is unremarkable. No pleural effusion or pneumothorax. No acute osseous abnormalities. RAD/Chest 1 View (Portable) IMPRESSION: No acute radiographic abnormalities. Electronically Signed: Angel Bella MD at 20:36 EDT Tel , Service support ,
[2021-01-26 20:11] LABS: Color, Urine Yellow (Yellow); Glucose, Dipstick Normal (Normal); Ketone-Dipstick Negative (Negative); Leukocyte Esterase-Dipstick Negative /ul (Negative); Nitrite-Dipstick Negative (Negative); Occult Blood-Urine Negative /ul (Negative); Protein-Dipstick Negative (Negative); Urine Bilirubin Dipstick Negative (Negative); Urine Clarity Clear (Clear); Urine Urobilinogen Normal (Normal)
[2021-01-26 20:17] LABS: ALB/GLOB Ratio 1.2 RATIO (0.9-2.4); AST(SGOT) 25 U/L (15-37); Alanine Aminotransfer ALT/SGPT 21 U/L (13-56); Albumin, Serum 4.1 g/dL (3.2-5.0); Alkaline Phosphatase 67 U/L (45-117); Anion Gap 5 (5-15); BUN 17 mg/dL (7-18); BUN/Creat Ratio 22.2 RATIO (10-20); Calcium,Total 9.7 mg/dL (8.5-10.1); Chloride 106 mmol/L (98-107); Creatinine, Serum 0.77 mg/dL (0.55-1.02); EST Glomerular Filtration Rate 80 mL/min (>60); Est Glom Filt Rate - Afr Amer 97 mL/min (>60); Estimated Creatinine Clearance 43.18 ml/min; Globulin 3.4 g/dL (2.2-4.2); Glucose 94 mg/dL (74-106); Potassium 4.2 mmol/L (3.5-5.1); Protein, Total 7.5 g/dL (6.4-8.2); Sodium Level 140 mmol/L (136-145)
[2021-01-26 20:30] LABS: Squamous Epithelial Cells - UA 0-5 SEEN /hpf (5-10)
[2021-01-26] MEDS: 0.9% Normal Saline 1,000 ML 50 ML IV (20:39)
[2021-01-26 20:42] VITALS: PULSE 66; RESP 16
[2021-01-26 22:52] VITALS: BMI 28.2
[2021-01-26 23:39] VITALS: PULSE 77; RESP 16; O2SAT 99
--- NOTE | 2021-01-26 23:42 | EX.ED.DYSGE1 ---
HPI History of Present Illness Chief Complaint: Neuro S/Sx Informant: patient Onset/Context/Timing Onset: Weeks (1) Context: Gradual Onset Timing: Continuous Quality: Aching but sharp at times Location: Low back and bilateral hips Worsened by: Nothing Relieved by: Nothing Narrative Narrative: Patient presents with foot drop that has been constant for the past week. Patient states she is also been having some bilateral calf pain and bilateral hip pain. Patient states she has some pain in her back as well. Patient denies any trauma or injury. Patient states that she has been having more difficulty controlling her bladder. Patient states she feels like sometimes she has to go and is unable to urinate. Patient states other times she feels incontinence when she is stressed. Patient denies any stool incontinence. [facility] Medical History (Updated 01/26/21 @ 23:[address] Estrada Hills, ) Anxiety and depression Arthritis Asthma Back pain child Difficulty balancing GERD (gastroesophageal reflux disease) Hay fever Hypoglycemia IBS (irritable bowel syndrome) Incontinence Knee pain Low calcium levels Melanoma Osteopenia Home Medications lansoprazole 30 mg PO DAILY 02/06/14 [History Last Taken 08/04/19 08:00 30 mg] montelukast 10 mg PO DAILY 02/06/14 [History Last Taken 08/04/19 08:00 10 mg] sumatriptan succinate 100 mg PO .X1 PRN 02/06/14 [History Last Taken 08/05/19 12:00 100 mg] venlafaxine 75 mg PO TID 02/06/14 [History Last Taken 08/04/19 22:00 75 mg] ascorbic acid (vitamin C) 1,000 mg tablet 1,000 mg PO DAILY 07/31/17 [History Last Taken Unknown] cholecalciferol (vitamin D3) 25 mcg (1,000 unit) capsule 400 unit PO DAILY 07/31/17 [History Last Taken Unknown] docusate sodium 50 mg capsule 100 mg PO 4X/DAY 07/31/17 [History Last Taken Unknown] garlic 1 tab PO BID 07/31/17 [History Last Taken Unknown] vitamin A 2,400 mcg capsule 10,000 unit PO QDAY 07/31/17 [History Last Taken Unknown] vitamin B complex 1 tab PO QDAY 07/31/17 [History Last Taken Unknown] vitamin E 200 unit capsule 400 unit PO QDAY 07/31/17 [History Last Taken Unknown] alendronate 70 mg PO BONILLA 05/28/18 [History Last Taken 08/02/19 08:00 70 mg] apple cider vinegar 450 mg PO DAILY 05/28/18 [History Last Taken Unknown] calcium carbonate 600 mg PO DAILY 05/28/18 [History Last Taken Unknown] cinnamon bark 1,000 mg PO BID 05/28/18 [History Last Taken Unknown] fluticasone propionate 2 puff INHALATION DAILY 05/28/18 [History Last Taken 08/04/19 08:00 2 puff] magnesium 250 mg PO TID 05/28/18 [History Last Taken Unknown] omega-3 fatty acids-fish oil 1 ea PO DAILY 05/28/18 [History Last Taken 05/27/18] turmeric root extract 1,000 mg PO BID 05/28/18 [History Last Taken 05/26/18] gabapentin 1 tab PO TID 08/06/19 [History Last Taken Unknown] melatonin 5 mg PO DAILY 10/03/19 [History Last Taken Unknown] Allergy/AdvReac Type Severity Reaction Status Date / Time chocolate flavor Allergy Unknown Verified 01/26/21 17:33 fexofenadine [From Ariadna] Allergy Unknown Verified 01/26/21 17:33 pineapple Allergy Unknown Verified 01/26/21 17:33 amoxicillin [Amoxicillin] AdvReac Other Verified 01/26/21 17:33 bupropion HCl AdvReac Other Verified 01/26/21 17:33 [From Wellbutrin] egg AdvReac Other Verified 01/26/21 17:33 morphine AdvReac Itching Verified 01/26/21 17:33 cosmetics Allergy Unknown Uncoded 01/26/21 17:33 nuts Allergy Unknown Uncoded 01/26/21 17:33 ADVACODO AdvReac Unknown Uncoded 01/26/21 17:33 Family History Other Asthma Colon cancer Surgical History Hx of knee surgery S/P breast lumpectomy Social History Smoking Status: Never smoker alcohol intake: never substance use type: does not use what type of physical activity do you participate in: walking and bicycling frequency: 1-2 times per week ROS ROS ED Constitutional Constitutional ED: Denies chills or fever(s) Eyes Eyes: Reports blurry vision; Denies diplopia ENT ENT ED: Denies rhinorrhea or sore throat Cardiovascular Cardiovascular: Denies chest pain or palpitations Respiratory/Chest Respiratory/Chest: Denies cough or dyspnea Gastrointestinal Gastrointestinal: Denies nausea or vomiting Genitourinary Genitourinary ED: Denies dysuria or hematuria Musculoskeletal Musculoskeletal: Reports back pain; Denies neck pain Integumentary Denies abscess or rash Neurologic Neurologic: Reports weakness; Denies headache(s) Allergic/Immunologic Allergic/Immunologic ED: Denies mouth swelling or urticaria EXAM Physical Exam Const Vital Signs: 01/26/21 17:31 01/26/21 19:19 01/26/21 20:42 Temperature 97.2 F L Temperature Source Temporal Pulse Rate 72 66 Respiratory Rate 14 16 Blood Pressure 123/79 H Blood Pressure Mean 93 Pulse Ox 95 Oxygen Delivery Method Room Air Room Air 01/26/21 23:39 Temperature Temperature Source Pulse Rate 77 Respiratory Rate 16 Blood Pressure Blood Pressure Mean Pulse Ox 99 Oxygen Delivery Method Positive well nourished and well developed General Appearance ED: well developed HEENT Reports moist mucous membranes Neck supple and no JVD Resp normal respiratory effort and clear to auscultation bilaterally Cardio regular rate and regular rhythm GI normal to inspection, nondistended, normoactive bowel sounds and non-tender Palpation: soft Back/Spine Back/Spine Narrative: There is some mild tenderness over the lower lumbar spine and paraspinal muscles. There is no bony crepitance or step-off. Range of motion was slightly limited in all motions of the lumbar spine secondary to pain. Extremity normal to inspection General Extremety ED: Yes tenderness; Negative for edema General Extremity: Negative for edema Neuro oriented x3, CN's II-XII intact bilaterally and no sensory deficits noted Sensorium / Orientation: alert Motor Exam: strength abnormal flexion (Strength is 4 out of 5 in dorsiflexion of the ankles bilaterally, slightly worse on the right) Psych mental status grossly normal MDM MDM MDM Narrative Medical decision making narrative: Patient was given IV fluids. CBC was within normal limits. PT with INR and PTT were normal. Comprehensive metabolic profile was normal. Urinalysis does not show any evidence of urinary tract infection. Portable 1 view chest x-ray was obtained. On my interpretation, lung heart are clear. There is normal cardiac silhouette. Bony thorax is normal. There is no acute process noted. Radiologist also interpreted the x-ray and agrees. Because of her incontinence, MRI of the lumbar spine was obtained. There is severe stenosis at L4-L5 which is worse from previous images from 2019. This was interpreted by the radiologist and reviewed by myself. Patient was advised of her findings. Patient had no hospital preference to where she should be transferred to. Case was discussed with the [facility] transfer line. They are checking for availability of a bed at this time. They will call back. Care of the patient was turned over to the oncoming physician pending transfer. Lab Data Labs: Laboratory Results - last 24 hr 01/26/21 01/26/21 01/26/21 18:52 18:52 18:52 WBC 5.7 RBC 4.30 Hgb 14.2 Hct 44.5 MCV 103.5 H MCH 33.0 H MCHC 31.9 L RDW Std Deviation 51.7 H RDW Coeff of Roopa 13.5 Plt Count 232 MPV 9.9 Immature Gran % (Auto) 0.000 Neut % (Auto) 47.7 Lymph % (Auto) 41.5 H [place] % (Auto) 8.2 Eos % (Auto) 1.9 Baso % (Auto) 0.7 Absolute Neuts (auto) 2.7 Absolute Lymphs (auto) 2.38 Nucleated RBC % 0 PT 11.9 INR 0.9 APTT 31.4 Sodium Cancelled Potassium Cancelled Chloride Cancelled Carbon Dioxide Cancelled Anion Gap Cancelled BUN Cancelled Creatinine Cancelled Estim Creat Clear Calc Cancelled Est GFR (MDRD) Af Amer Cancelled Est GFR (MDRD) Non-Af Cancelled BUN/Creatinine Ratio Cancelled Glucose Cancelled Calcium Cancelled Total Bilirubin AST ALT Alkaline Phosphatase Total Protein Albumin Globulin Albumin/Globulin Ratio Urine Color Urine Clarity Urine pH Ur Specific [place] Urine Protein Urine Glucose (UA) Urine Ketones Urine Occult Blood Urine Nitrite Urine Bilirubin Urine Urobilinogen Ur Leukocyte Esterase Urine RBC Urine WBC Ur Squamous Epith Cells Urine Bacteria Urine Mucus POC Glucose 01/26/21 01/26/21 01/26/21 18:52 19:29 19:58 WBC RBC Hgb Hct MCV MCH MCHC RDW Std Deviation RDW Coeff of [place] Plt Count MPV Immature Gran % (Auto) Neut % (Auto) Lymph % (Auto) [place] % (Auto) Eos % (Auto) Baso % (Auto) Absolute Neuts (auto) Absolute Lymphs (auto) Nucleated RBC % PT INR APTT Sodium 140 Potassium 4.2 Chloride 106 Carbon Dioxide 29.0 Anion Gap 5 BUN 17 Creatinine 0.77 Estim Creat Clear Calc 43.18 Est GFR (MDRD) Af Amer 97 Est GFR (MDRD) Non-Af 80 BUN/Creatinine Ratio 22.2 H Glucose 94 Calcium 9.7 Total Bilirubin 0.40 AST 25 ALT 21 Alkaline Phosphatase 67 Total Protein 7.5 Albumin 4.1 Globulin 3.4 Albumin/Globulin Ratio 1.2 Urine Color Yellow Urine Clarity Clear Urine pH 7.0 Ur Specific [place] 1.010 Urine Protein Negative Urine Glucose (UA) Normal Urine Ketones Negative Urine Occult Blood Negative Urine Nitrite Negative Urine Bilirubin Negative Urine Urobilinogen Normal Ur Leukocyte Esterase Negative Urine RBC 0 SEEN Urine WBC 0 SEEN Ur Squamous Epith Cells 0-5 SEEN Urine Bacteria 0 SEEN Urine Mucus 0 SEEN POC Glucose 102 Radiography Chest X-Ray - ED: 1 View, Read by ED Physician, Read by Radiologist and Normal Diagnostic Testing: Radiology Impression Lumbar Spine MRI 01/26/21 19:42 IMPRESSION: Diffuse spondylosis with small disc bulges, mild listhesis, and severe posterior element disease causing severe spinal canal stenosis L2-L3, L3-L4, and L4-5 and neuroforaminal stenosis as above. Central spinal stenosis is worsened at L3-L4 and L4-L5 compared with 09/09/2018, most severe at L4-5 with compression of the cauda equina. Possible compression cauda equina at L3-L4 and L2-L3. Correlate with distribution of symptoms. No acute osseous finding. at 2344 Reported and signed by: Tae Hickman MD Electronically Signed: Tae Hickman MD at 23:43 EDT Tel , Service support , ADDENDUM: 01/26/21 2354 IMPRESSION: Diffuse spondylosis with small disc bulges, mild listhesis, and severe posterior element disease causing severe spinal canal stenosis L2-L3, L3-L4, and L4-5 and neuroforaminal stenosis as above. Central spinal stenosis is worsened at L3-L4 and L4-L5 compared with 09/09/2018, most severe at L4-5 with compression of the cauda equina. Possible compression cauda equina at L3-L4 and L2-L3. Correlate with distribution of symptoms. No acute osseous finding. at 2344 Reported and signed by: Tae Hickman MD N.B. : The above Results were Read Back by Tae Hickman MD to Dr. Uvaldo DO, and understanding confirmed on 01/26/2021 23:47:46 (ET). Electronically Signed: Tae Hickman MD at 23:43 EDT Tel , Service support , Chest X-Ray 01/26/21 20:10 IMPRESSION: No acute radiographic abnormalities. Electronically Signed: Angel Bella MD at 20:36 EDT Tel , Service support , Discharge Plan Triage Chief Complaint: Neuro S/Sx ED Provider: Estrada Hills Dx/Rx/DC Orders Clinical Impression: Cauda equina syndrome Prescriptions: No Action vitamin A 8,000 unit capsule 10,000 unit PO QDAY RF: 0 vitamin B complex [B Complex-Vitamin B12] tablet 1 tab PO QDAY RF: 0 ascorbic acid (vitamin C) 1,000 mg tablet 1,000 mg PO DAILY RF: 0 cholecalciferol (vitamin D3) [Vitamin D3] 1,000 unit capsule 400 unit PO DAILY RF: 0 vitamin E 200 unit capsule 400 unit PO QDAY RF: 0 garlic tablet tablet 1 tab PO BID RF: 0 docusate sodium [Stool Softener] 50 mg capsule 100 mg PO 4X/DAY RF: 0 venlafaxine 75 MG tablet 75 mg PO TID RF: 0 sumatriptan succinate 100 MG tablet 100 mg PO .X1 PRN RF: 0 lansoprazole 30 MG capsule 30 mg PO DAILY RF: 0 montelukast 10 MG tablet 10 mg PO DAILY RF: 0 alendronate 70 MG tablet 70 mg PO BONILLA RF: 0 calcium carbonate 600 MG tablet 600 mg PO DAILY RF: 0 magnesium 250 MG tablet 250 mg PO TID RF: 0 fluticasone propionate 1 INHALER inhaler 2 puff Inhalation DAILY RF: 0 cinnamon bark 500 MG capsule 1,000 mg PO BID RF: 0 omega-3 fatty acids-fish oil 1 EACH capsule 1 ea PO DAILY RF: 0 apple cider vinegar 300 MG tablet 450 mg PO DAILY RF: 0 turmeric root extract 500 MG capsule 1,000 mg PO BID RF: 0 gabapentin 100 MG capsule 1 tab PO TID RF: 0 melatonin 5 MG capsule 5 mg PO DAILY RF: 0 Primary Care Provider: Mariana James Referrals: Mariana James DO [Primary Care Provider] -
[2021-01-27 01:18] VITALS: BP 162/81; PULSE 62; O2SAT 95
[2021-01-27] MEDS: HYDROmorphone 1 MG/ML Syringe IV (01:34)
[2021-01-27] MEDS: Ondansetron 4 MG/2 ML Vial IV (01:34)
[2021-01-27] MEDS: dexAMETHasone 10 MG/ML Vial IV (01:58)
[2021-01-27 02:53] VITALS: PULSE 60; RESP 16; O2SAT 99
== END 2021-01-27 02:55 | disposition short-term general hospital (02) ==
PROVIDERS: Emergency Provider Emergency Medicine; PCP Family Medicine
DX: G83.4 Cauda equina syndrome (principal); F41.9 Anxiety disorder, unspecified; F32.9 Major depressive disorder, single episode, unspecified; M19.90 Unspecified osteoarthritis, unspecified site; J45.909 Unspecified asthma, uncomplicated; K21.9 Gastro-esophageal reflux disease without esophagitis; Z79.899 Other long term (current) drug therapy
CPT/HCPCS: 71045; 72158; 80053; 81001; 82962; 85025; 85610; 85730; 87426; 93005; 96361; 96374; 96375; 99285; A9575; J7030; A4216; J2405

== ENCOUNTER → 2021-02-06 05:00 | Outpatient (REF) | payer MEDICARE, MEDICAID, SELFPAY ==
[2021-01-26 22:52] VITALS: BMI 28.2
[2021-02-06 08:44] LABS: Hematocrit 36.4 % (37-47); Hemoglobin 11.5 g/dL (12.0-15.0); Mean Corp Hgb Conc 31.6 g/dL (32-36); Mean Corpuscular Hgb 32.6 pg (27.0-32.0); Mean Corpuscular Volume 103.1 fL (81-99); Mean Platelet Vol. 10.7 fl (6.2-12.0); Platelet Count 295 K/mm3 (150-450); RBC Distribution Width CV 12.9 % (11.6-14.6); RBC Distribution Width SD 48.1 fl (35.1-43.9); Red Blood Count 3.53 M/mm3 (4.2-5.4); White Blood Count 5.1 K/mm3 (4.4-11.0)
[2021-02-06 08:51] LABS: ALB/GLOB Ratio 0.8 RATIO (0.9-2.4); AST(SGOT) 24 U/L (15-37); Alanine Aminotransfer ALT/SGPT 37 U/L (13-56); Albumin, Serum 2.9 g/dL (3.2-5.0); Alkaline Phosphatase 88 U/L (45-117); Anion Gap 6 (5-15); BUN 16 mg/dL (7-18); BUN/Creat Ratio 23.6 RATIO (10-20); Calcium,Total 8.8 mg/dL (8.5-10.1); Chloride 109 mmol/L (98-107); Creatinine, Serum 0.68 mg/dL (0.55-1.02); EST Glomerular Filtration Rate 92 mL/min (>60); Est Glom Filt Rate - Afr Amer 111 mL/min (>60); Globulin 3.6 g/dL (2.2-4.2); Glucose 105 mg/dL (74-106); Potassium 4.1 mmol/L (3.5-5.1); Protein, Total 6.5 g/dL (6.4-8.2); Sodium Level 139 mmol/L (136-145)
== END ==
LOC: OLS.SW1020 05:00
PROVIDERS: PCP Family Medicine; Visit Provider Family Medicine
DX: Z79.899 Other long term (current) drug therapy (principal)
CPT/HCPCS: 36415; 80053; 85027

== ENCOUNTER → 2021-03-03 | Outpatient (CLI) | payer MEDICARE, MEDICAID, SELFPAY | END | disposition home or self-care (01) | LOC: LABSPEC 15:35 | PROVIDERS: PCP Family Medicine; Visit Provider Family Medicine | DX: N39.0 Urinary tract infection, site not specified (principal) | CPT/HCPCS: 87086; 87088 ==

== ENCOUNTER 2021-04-28 14:30 | Outpatient (RCR) | payer MEDICARE, MEDICAID, SELFPAY ==
--- NOTE | 2021-03-17 14:10 | HP.PTEVAL ---
Patient's Visit Information ALISHA AG is a 65 year old F referred to Physical Therapy by Dr. Glory Deal MD with a diagnosis of Vestibular, Lumbar Radic, cauda Equina Syndrome. Date of Evaluation: 03/17/21 Physical Therapist: JESUS Sanchez - Visit Plan Frequency: 2x /Week Duration: 6 Weeks Plan: She sees Surgeon again Apr 26. Her Surgeon said no twisting, bending, or lifting more than a gallon of milk weight until he sees her again. 2X/ week for 6 weeks for neutral spine core stability, light LE strengthening, R ankle DF strengthening and stretching, gait training with vestibular inputs such as EO/EC, compliant and noncompliant surfaces and head movements and turning with gait. 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 She was evaluated for home health and was supposed to get a referral for PT but we do not have that order. She told her Dr that she wanted to work on her crystals and she thought that the Dr was going to send some exercises in the mail but now she is here so she is not sure what is going on as she thought she was coming to PT for her back. Worked with Physicians office to get the additional back order sent over. Pt reports that she is generally not dizzy. Since the surgery she gets this whooshing in her ears when she gets up or looks up. It lasts seconds and it goes away. She does not think that she has any trouble when she rolls over in bed at night. It is only occ now. The room does not spin. She has not fallen because of the whooshing in her ears. Pt had surgery on January 27 and that done by Burke Dos Santos. She had a laminectomy with fusion. She sees Dr again Apr 26. Her Dr said no twisting, bending, or lifting more than a gallon of milk weight until he sees her again. She is trying hard to follow those rules. She has no trouble with stairs. She is sleeping ok... sometimes takes a pain pill to sleep but not for the pain. Pt reports that she has some sudden weakness in her legs with walking but then it goes away. She says that she has surface pain in her hips and slightly down her legs and numb spots and some exercises tends to hurt.... LAQ pulls the back of her knee, which are normal feelings. She has no pain consistent except the surface tenderness. Pt has drop R foot since before surgery. - Pain back pain Pain Intensity (Out of 10): 1 Pain Intensity Range: 5 - Objective -B Hallpikes for dizziness or nystagmus. -Roll test B. Gait: walks with normal gait pattern with decreased trunk rotation (from recent back surgery??). She did get one episode of turning too quickly and she did get a wave of dizziness but that subsided quickly and was not able to replicate it after that one episode with either turning R or L again. Pt has good eye focus and control and no dizziness with smooth pursuit and saccades in horizontal and vertical. VOR X 1 no dizziness with horizontal and vertical. CATSIB 120/120. FGA 20/30. Pt had some stepping out and slowing down when walking and turning head horizontal and vertical. Pt also struggled with walking BW...slow cautious steps. Trunk AROM: Pt not wanting to do any ROM due to Dr restrictions at this time. LE MMT: R hip flex 4-/5 and L 4/5, B hip abd 4-/5, R knee ext 3+/5 (increase HS pull), L knee ext 4/5, R knee flex 4-/5 and L knee flex 4-/5. Pt is able to lye prone but said she is not supposed to sleep on her stomach. R ankle DF 3-/5 and L ankle 4/5 R ankle PF 4-/5 and L 4/5. Patellar DTR: 0/3 B. sit to stand from chair: able to get up from a chair without using her arms. stairs: Able to go up and down the stairs recip with 1 hand rail. Able to raise heels and toes: pt is able to walk on her toes but not on her heels on the R (prior to surgery). SLR +only for HS tightness. Bridges: Able to do 3/4 normal ROM bridge - Balance/Special Test Scores Functional Gait Assessment Score: 20 % Disability: 33.3400 CATSIB Score (Max score 120 seconds): 120 Oswestry Low Back Score: 17 Dizziness Score: 4 - Goals Goal 1:: I HEP Goal Time Frame: 4-6 Weeks Goal 2:: Increase FGA score by 7 points to decrease fall risk and get pt into age appropriate range Goal Time Frame: 4-6 Weeks Goal 3:: Pt to subjectively have decreased whooshing sound by 50% Goal Time Frame: 4-6 Weeks Goal 4:: Increase B LE strength by 1/2 muscle grade (at time of the eval: LE MMT R hip flex 4-/5 and L 4/5, B hip abd 4-/5, R knee ext 3+/5 (increase HS pull), L knee ext 4/5, R knee flex 4-/5 and L knee flex 4-/5) Goal Time Frame: 4-6 Weeks Goal 5:: Be able to pull B feet in DF in standing X 10 (increase R DF strength by 1/2 muscle grade to 3+/5) Goal Time Frame: 4-6 Weeks Goal 6:: Decrease overall daily back pain to 0/10 with ADL's Goal Time Frame: 4-6 Weeks - Rehabilitation Potential Rehabilitation Potential: Good - Anticipated Interventions Patient/Client Instruction: Educate patient on: Condition, Plan of Care For the Purpose of:: To decrease pain, To increase ROM, To improve nutrient delivery to tissue, To improve muscle performance and motor function, To improve ability to perform ADL's, To increase tolerance to activity/condition/position, To improve performance and independence with ADL's, To decrease level of supervision to perform tasks, To improve ability of physical actions for home/community/work/leisure, To improve gait and locomotor functions, To improve health of tissue, To decrease soft tissue restriction, To increase flexibility/ROM, To improve balance Therapeutic Exercise to Include: Strength training, Endurance training, Balance training, Coordination, Body mechanics, Postural training, Flexibilty training, Gait and locomotor training, Neuromotor development, Passive ROM, Active ROM, Dynamic Lumbar Stabilization For the Purpose of:: To decrease pain, To increase ROM, To improve nutrient delivery to tissue, To improve muscle performance and motor function, To improve ability to perform ADL's, To increase tolerance to activity/condition/position, To improve performance and independence with ADL's, To decrease level of supervision to perform tasks, To improve ability of physical actions for home/community/work/leisure, To improve gait and locomotor functions, To improve health of tissue, To decrease soft tissue restriction, To increase flexibility/ROM, To improve endurance, To improve balance, To improve safety with gait Functional Training to Include: Gait training For the Purpose of:: To improve gait and locomotor functions, To improve safety with gait Manual Therapy Techniques to Include: Passive ROM For the Purpose of:: To increase ROM Thank you for the opportunity to evaluate your patient. For Medicare and Medicare HMO plans, please review the plan of care and approve it. It will need to be FAXED BACK to us at [phone] for Medicare purposes. For Medicare only, by signing this I certify the plan of care. Please let me know if there are questions or concerns regarding this plan of care. Physician Signature: Date:
--- NOTE | 2021-04-28 15:03 | HP.PTDCSUM ---
It has been my pleasure to treat ALISHA AG referred by Dr. Glory Deal MD, with the diagnosis of Vestibular, Lumbar Radic, cauda Equina Syndrome for a total of 9 visit(s). Discharge Date: 04/28/21 Please see the following information for a summary of their discharge status. Subjective: Pt reports that she still has back pain but ice helps. Dr wants to see her virtual in June but they are happy with her progress. PT feels comfortable with continuing exercises on her own. back pain Pain Intensity (Out of 10): 0 % Improvement: 70 Objective/Function: FGA 25. Walks with normal gait pattern except for occ toe drag and ascends/descends stairs without needing a rail. LE MMT: 5/5 B hip flex, knee flex and knee ext. 4/5 B hip abd. Goal 1:: I HEP Goal Progress: Goal Met Goal 2:: Increase FGA score by 7 points to decrease fall risk and get pt into age appropriate range Goal Progress: Goal Met Goal 3:: Pt to subjectively have decreased whooshing sound by 50% Goal Progress: Goal Met Goal 4:: Increase B LE strength by 1/2 muscle grade (at time of the eval: LE MMT R hip flex 4-/5 and L 4/5, B hip abd 4-/5, R knee ext 3+/5 (increase HS pull), L knee ext 4/5, R knee flex 4-/5 and L knee flex 4-/5) Goal Progress: Goal Met Goal 5:: Be able to pull B feet in DF in standing X 10 (increase R DF strength by 1/2 muscle grade to 3+/5) Goal Progress: Progressing Goal 6:: Decrease overall daily back pain to 0/10 with ADL's Goal Progress: Progressing Plan: DC PT to HEP Discharge Comments: DC PT to HEP If there are questions or concerns regarding this patient's physical therapy, please feel free to call me at [phone]. Thank you for the referral of this patient. Sincerely, Dixie Casanova, MPT Balance/Gait/Functional tests - Balance/Special Test Scores Functional Gait Assessment Score: 25 % Disability: 16.6700 CATSIB Score (Max score 120 seconds): 120 Oswestry Low Back Score: 14 Dizziness Score: 4
== END 2021-04-28 19:00 | disposition home or self-care (01) ==
LOC: PT 14:30
PROVIDERS: PCP Family Medicine; Referring Provider Family Medicine; Visit Provider Family Medicine
DX: M54.16 Radiculopathy, lumbar region (principal); G83.4 Cauda equina syndrome
CPT/HCPCS: 97110; 97162; 97530

== ENCOUNTER 2021-05-14 11:14 | Observation (INO) | payer MEDICARE, MEDICAID, SELFPAY ==
[2021-05-14] VITALS (8 sets, daily range): BP systolic 151–206; BP diastolic 79–96; PULSE 63–82; RESP 16–18; TEMP 36.9–37.6; O2SAT 93–97; BMI 27.1; BMI 25.0
--- NOTE | 2021-05-14 11:33 | RAD_ITS ---
STUDY: X-RAY - RIGHT SHOULDER REASON FOR EXAM: Female, 65 years old. fall TECHNIQUE: 3 view(s) of the shoulder. COMPARISON: None. FINDINGS: 3 views of the right shoulder demonstrate no evidence for acute fractures or dislocation. Degenerative changes of the acromioclavicular joint and the glenohumeral joint on seen. Visualized ribs appear intact. No pneumothorax. IMPRESSION: No acute fracture or dislocation. Electronically Signed: Wei Dior MD at 13:14 EDT Tel , Service support , RAD/Shoulder min 2 Views
--- NOTE | 2021-05-14 11:33 | CT_ITS ---
STUDY: CT BRAIN WITHOUT CONTRAST REASON FOR EXAM: Female, 65 years old. Pain RADIATION DOSAGE (If Supplied By Facility): CTDIvol = ( 44.99 ) mGy, DLP = ( 779.24 ) mGycm TECHNIQUE: Transaxial CT imaging of the brain was performed without administration of intravenous contrast material. Individualized dose optimization techniques were used for this CT. COMPARISON: 05/03/2016 FINDINGS: Normal soft tissue structures. Normal calvarium. Normal size ventricles and extra-axial spaces for the patient''s age. Nonspecific low-attenuation foci in the periventricular and subcortical white matter seen likely chronic small vessel disease. The basal cisterns are patent. Frontal and occipital scalp swelling There is no intracranial hemorrhage. There are no findings of an acute ischemic infarction. Normal visualized paranasal sinuses. CT/Brain/Head without Contrast IMPRESSION: No acute intracranial hemorrhage, mass effect or acute large territory infarcts Electronically Signed: Wei Dior MD at 12:37 EDT Tel , Service support ,
--- NOTE | 2021-05-14 11:33 | CT_ITS ---
STUDY: CT CERVICAL SPINE WITHOUT CONTRAST REASON FOR EXAM: Female, 65 years old. trauma RADIATION DOSAGE (If Supplied By Facility): CTDIvol = ( 17.40 ) mGy, DLP = ( 350.95 ) mGycm TECHNIQUE: High resolution transaxial imaging was performed without contrast material. Sagittal and coronal images were reconstructed. Individualized dose optimization techniques were used for this CT. COMPARISON: None FINDINGS: Straightening of normal cervical lordotic curvature. Facets appear aligned. Spinous processes are intact. Disc osteophytes at C3-C4, C4-C5 and C5-C6 levels with central canal stenosis and multilevel neural foraminal narrowing. Anterior bridging osteophytes are also seen at C3-C4 and C4-C5 levels. The test osteophytes at C5 level again noted. Minimal grade 1 anterolisthesis of C4 on C5. Disc space narrowing at C5-C6 and C6 exam levels with endplate degenerative changes. The dens appears intact. Occipital condyles are within normal limits. C1 arch is intact. No skull base fractures. No apical pneumothorax. IMPRESSION: No evidence for acute cervical spine fractures. Cervical spondylotic changes with multilevel neural foraminal narrowing and central canal stenosis. Electronically Signed: Wei Dior MD at 12:45 EDT Tel , Service support , CT/Spine Cervical without Contras
--- NOTE | 2021-05-14 11:36 | EX.ED.GENINJ ---
HPI History of Present Illness Chief Complaint: Fall Detail of Chief Complaint: Fall down steps prior to arrival in emergency department Informant: patient Narrative Narrative: Patient presents with a mechanical fall down about 4 5 steps while at [facility]. She denies loss of consciousness. Patient is unsure if the steps were carpeted. She complains of head pain as well as right shoulder pain. EMS gave patient Zofran for nausea and also Toradol for pain. Patient is denying neck pain. She complains of pain in both hands. She is not on blood thinners. She was not ambulatory after the fall. [facility] Medical History (Updated 05/14/21 @ 13:[address] Gus Toledo, DO) Anxiety and depression Arthritis Asthma Back pain child Difficulty balancing GERD (gastroesophageal reflux disease) Hay fever Hypoglycemia IBS (irritable bowel syndrome) Incontinence Knee pain Low calcium levels Melanoma Osteopenia Home Medications lansoprazole 30 mg PO DAILY 02/06/14 [History Last Taken 08/04/19 08:00 30 mg] montelukast 10 mg PO DAILY 02/06/14 [History Last Taken 08/04/19 08:00 10 mg] sumatriptan succinate 100 mg PO .X1 PRN 02/06/14 [History Last Taken 08/05/19 12:00 100 mg] venlafaxine 75 mg PO TID 02/06/14 [History Last Taken 08/04/19 22:00 75 mg] ascorbic acid (vitamin C) 1,000 mg tablet 1,000 mg PO DAILY 07/31/17 [History Last Taken Unknown] cholecalciferol (vitamin D3) 25 mcg (1,000 unit) capsule 400 unit PO DAILY 07/31/17 [History Last Taken Unknown] docusate sodium 50 mg capsule 100 mg PO 4X/DAY 07/31/17 [History Last Taken Unknown] garlic 1 tab PO BID 07/31/17 [History Last Taken Unknown] vitamin A 2,400 mcg capsule 10,000 unit PO QDAY 07/31/17 [History Last Taken Unknown] vitamin E 200 unit capsule 400 unit PO QDAY 07/31/17 [History Last Taken Unknown] alendronate 70 mg PO BONILLA 05/28/18 [History Last Taken 08/02/19 08:00 70 mg] apple cider vinegar 450 mg PO DAILY 05/28/18 [History Last Taken Unknown] calcium carbonate 600 mg PO DAILY 05/28/18 [History Last Taken Unknown] cinnamon bark 1,000 mg PO BID 05/28/18 [History Last Taken Unknown] fluticasone propionate 2 puff INHALATION DAILY 05/28/18 [History Last Taken 08/04/19 08:00 2 puff] magnesium 250 mg PO TID 05/28/18 [History Last Taken Unknown] omega-3 fatty acids-fish oil 1 ea PO DAILY 05/28/18 [History Last Taken 05/27/18] turmeric root extract 1,000 mg PO BID 05/28/18 [History Last Taken 05/26/18] gabapentin 1 tab PO TID 08/06/19 [History Last Taken Unknown] melatonin 5 mg PO DAILY 10/03/19 [History Last Taken Unknown] Allergy/AdvReac Type Severity Reaction Status Date / Time chocolate flavor Allergy Unknown Verified 05/14/21 11:15 fexofenadine [From Ariadna] Allergy Unknown Verified 05/14/21 11:15 pineapple Allergy Unknown Verified 05/14/21 11:15 amoxicillin [Amoxicillin] AdvReac Other Verified 05/14/21 11:15 bupropion HCl AdvReac Other Verified 05/14/21 11:15 [From Wellbutrin] egg AdvReac Other Verified 05/14/21 11:15 morphine AdvReac Itching Verified 05/14/21 11:15 cosmetics Allergy Unknown Uncoded 05/14/21 11:15 nuts Allergy Unknown Uncoded 05/14/21 11:15 ADVACODO AdvReac Unknown Uncoded 05/14/21 11:15 Family History Other Asthma Colon cancer Surgical History Hx of knee surgery S/P breast lumpectomy Social History Smoking Status: Never smoker alcohol intake: never substance use type: does not use what type of physical activity do you participate in: walking and bicycling frequency: 1-2 times per week ROS ROS ED Constitutional Constitutional ED: Reports systems reviewed and no addt'l complaints, except as documented; Denies body ache(s), change in weight or chills Eyes Eyes: Denies acute decrease in peripheral vision, change in vision, double vision or loss of vision ENT ENT ED: Reports none; Denies ear pain, lip swelling, loss taste/smell, neck pain, otalgia or sore throat Cardiovascular Cardiovascular: Reports none; Denies abdominal pain, chest pain with activity, leg edema, lightheadedness, palpitations, rapid heart rate or syncope Respiratory/Chest Respiratory/Chest: Reports none; Denies change in mental status, dry cough, dyspnea, hemoptysis, shortness of breath at rest or shortness of breath with exertion Gastrointestinal Gastrointestinal: Reports none; Denies abdominal pain, change in stool character, diarrhea, hematemesis, hematochezia, melena, rectal bleeding or vomiting Genitourinary Genitourinary ED: Reports none; Denies abdominal discomfort, anuria, dysuria, genital pain or polyuria Musculoskeletal Musculoskeletal: Reports none and other Details: Right shoulder pain and bilateral hand pain ; Denies arthralgias, back pain, difficulty walking, extremity pain, muscle weakness or myalgias Integumentary Reports none; Denies abscess or rash Neurologic Neurologic: Reports none and headache(s); Denies abnormal gait, confusion, focal weakness, frequent falls, loss of vision, numbness, paresthesias, radicular pain, vertigo or weakness Psychiatric Psychiatric: Reports systems reviewed and no addt'l complaints, except as documented and none; Denies behavioral changes, confusion, difficulty concentrating, hallucinations, suicidal ideation, tactile hallucinations or visual hallucinations Endocrine Endocrinology: Denies none, cold intolerance, excessive sweating, fatigue or heat intolerance Hematologic/Lymphatic Hematologic/Lymphatic: Reports none; Denies anemia, easy bleeding or easy bruising Allergic/Immunologic Allergic/Immunologic ED: Denies as per HPI, none, lip swelling, mouth swelling, throat swelling, tongue swelling or hives EXAM Physical Exam Const Vital Signs: 05/14/21 11:16 05/14/21 11:41 05/14/21 13:15 Temperature 98.6 F Temperature Source Temporal Pulse Rate 68 67 Respiratory Rate 18 18 Respiratory Effort Normal Respiratory Depth Normal Respiratory Pattern Normal Blood Pressure 195/96 H Blood Pressure Mean 129 Pulse Ox 95 96 Oxygen Delivery Method Room Air Room Air Room Air Oxygen Flow Rate (L/min) 98 Positive well nourished and well developed General Appearance ED: well developed and NAD HEENT Reports TM's clear and moist mucous membranes HEENT Narrative: Patient tissue swelling hematoma to forehead and posterior occiput. No bony depressions noted. normocephalic and trauma; Negative for tenderness Tympanic Membrane ED: Yes TM's clear Eyes PERRL and EOMs intact bilaterally General Eye ED: Negative for pale conjunctiva or scleral icterus Neck no lymphadenopathy, supple and no JVD Neck Narrative: Mild diffuse C-spine tenderness on palpation. General: Negative for tenderness Chest Wall inspection of chest normal and palpation of chest normal Chest: Negative for tenderness Resp normal respiratory effort and clear to auscultation bilaterally Effort and Inspection: Negative for respiratory distress or pain with movement Auscultation: Negative for rhonchi, wheezes or diminished lung sounds Cardio regular rate, regular rhythm, S1 normal heart sound, S2 normal heart sound and no murmurs Peripheral Pulses: pulses 2+ throughout GI normal to inspection, nondistended, normoactive bowel sounds, soft to palpation, non-tender, non-distended and no masses Back/Spine no CVA tenderness and no thoracic nor lumbar tenderness Extremity Extremity Narrative: Patient has tenderness to palpation of the left thumb and second MCP joint. No obvious deformity. Neurovascular intact. Patient has diffuse tenderness about the right hand. Evaluation of the right shoulder reveals tenderness over the glenohumeral joint. Limited range of motion secondary to pain. No obvious deformity or sulcus sign noted. General Extremety ED: Negative for edema General Extremity: Negative for edema Neuro oriented x3, CN's II-XII intact bilaterally, no sensory deficits noted and gait normal Sensorium / Orientation: awake, alert, oriented to person, oriented to place and oriented to time Motor Exam: strength 5/5 throughout and strength abnormal Psych mental status grossly normal Skin no rashes or lesions noted and no wounds MDM MDM MDM Narrative Medical decision making narrative: Patient's work-up unremarkable in the department. She does complain of nausea with movement of her head and feeling dizzy. I suspect she likely has a concussion. We will discussed with hospitalist to admit for an observation. Basic labs were ordered and are pending. Radiography Diagnostic Testing: Clinical Impression(s) from Imaging Studies Brain CT 05/14/21 11:33 IMPRESSION: No acute intracranial hemorrhage, mass effect or acute large territory infarcts Electronically Signed: Wei Dior MD at 12:37 EDT Tel , Service support , Cervical Spine CT 05/14/21 11:33 Shoulder X-Ray 05/14/21 11:33 Hand X-Ray 05/14/21 11:54 Hand X-Ray 05/14/21 12:10 Discharge Plan Triage Chief Complaint: Fall ED Provider: Gus Toledo Dx/Rx/DC Orders Clinical Impression: Concussion, Nausea, Contusion of right shoulder region, Contusion of hand Prescriptions: No Action vitamin A 8,000 unit capsule 10,000 unit PO QDAY RF: 0 ascorbic acid (vitamin C) 1,000 mg tablet 1,000 mg PO DAILY RF: 0 cholecalciferol (vitamin D3) [Vitamin D3] 1,000 unit capsule 400 unit PO DAILY RF: 0 vitamin E 200 unit capsule 400 unit PO QDAY RF: 0 garlic tablet tablet 1 tab PO BID RF: 0 docusate sodium [Stool Softener] 50 mg capsule 100 mg PO 4X/DAY RF: 0 venlafaxine 75 MG tablet 75 mg PO TID RF: 0 sumatriptan succinate 100 MG tablet 100 mg PO .X1 PRN RF: 0 lansoprazole 30 MG capsule 30 mg PO DAILY RF: 0 montelukast 10 MG tablet 10 mg PO DAILY RF: 0 alendronate 70 MG tablet 70 mg PO BONILLA RF: 0 calcium carbonate 600 MG tablet 600 mg PO DAILY RF: 0 magnesium 250 MG tablet 250 mg PO TID RF: 0 fluticasone propionate 1 INHALER inhaler 2 puff Inhalation DAILY RF: 0 cinnamon bark 500 MG capsule 1,000 mg PO BID RF: 0 omega-3 fatty acids-fish oil 1 EACH capsule 1 ea PO DAILY RF: 0 apple cider vinegar 300 MG tablet 450 mg PO DAILY RF: 0 turmeric root extract 500 MG capsule 1,000 mg PO BID RF: 0 gabapentin 100 MG capsule 1 tab PO TID RF: 0 melatonin 5 MG capsule 5 mg PO DAILY RF: 0 Primary Care Provider: Mariana James Referrals: Mariana James DO [Primary Care Provider] - Disposition [facility]position: [facility]
--- NOTE | 2021-05-14 11:54 | RAD_ITS ---
STUDY: X-RAY - LEFT HAND REASON FOR EXAM: Female, 65 years old. FALL TECHNIQUE: 3 view(s) of the hand. COMPARISON: None. FINDINGS: 3 views of the left hand demonstrate no evidence for acute fractures or dislocation. Overall alignment appears satisfactory. Metacarpal phalangeal joints are intact. IMPRESSION: No convincing evidence for acute fractures or dislocation. Electronically Signed: Wei Dior MD at 13:12 EDT Tel , Service support , RAD/Hand Min 3 Views
--- NOTE | 2021-05-14 12:10 | RAD_ITS ---
STUDY: X-RAY - RIGHT HAND REASON FOR EXAM: Female, 65 years old. fall TECHNIQUE: 3 view(s) of the hand. COMPARISON: None. FINDINGS: 3 views of the right hand demonstrate no acute fractures or dislocation. Metacarpal phalangeal joints are intact. Joint space narrowing in the interphalangeal joints. Alignment appears satisfactory. IMPRESSION: No convincing evidence for acute fractures of the right hand noted. Electronically Signed: Wei Dior MD at 13:14 EDT Tel , Service support , RAD/Hand Min 3 Views
[2021-05-14] MEDS: Ondansetron 4 MG/2 ML Vial IV ×3 (13:48→22:16)
[2021-05-14 13:56] LABS: Absolute Lymphocyte Count 1.26 X10^3/uL (0.83-4.51); Basophil# 0.02 X10^3/uL; Basophil% 0.2 % (0-1); Eosinophil# 0.16 X10^3/uL; Hematocrit 44.7 % (37-47); Hemoglobin 14.4 g/dL (12.0-15.0); Lymphocyte # 1.26 X10^3/ul (0.83-4.51); Lymphocyte % 15.5 % (19-41); Mean Corp Hgb Conc 32.2 g/dL (32-36); Mean Corpuscular Hgb 31.8 pg (27.0-32.0); Mean Corpuscular Volume 98.7 fL (81-99); Monocyte# 0.65 X10^3/uL; NRBC Flagged by Analyzer 0 % (0-5); Neutrophil # 6.03 X10^3/uL (2.7-7.7); Neutrophil % 74.1 % (47-70); Platelet Count 202 K/mm3 (150-450); RBC Distribution Width CV 13.7 % (11.6-14.6); Red Blood Count 4.53 M/mm3 (4.2-5.4); White Blood Count 8.1 K/mm3 (4.4-11.0)
[2021-05-14] MEDS: fentaNYL 100 MCG/2 ML Ampul 50 MCG IV (13:59)
--- NOTE | 2021-05-14 14:06 | ED.RN ---
PT BP 206/89, C/O PAIN ALL OVER. DR. CARABALLO INFORMED. PAIN MEDICATION ADMINISTERED ORDERED, SEE MAR. PER DR. CARABALLO, BP COULD BE RELATED TO PAIN, AND RECHECK BP IN 45 MIN. PT BEING OBSERVED. PENDING ADMISSION.
[2021-05-14 14:10] LABS: Anion Gap 6 (5-15); BUN 11 mg/dL (7-18); Calcium,Total 9.6 mg/dL (8.5-10.1); Chloride 107 mmol/L (98-107); Creatinine, Serum 0.74 mg/dL (0.55-1.02); EST Glomerular Filtration Rate 84 mL/min (>60); Est Glom Filt Rate - Afr Amer 101 mL/min (>60); Estimated Creatinine Clearance 43.18 ml/min; Glucose 104 mg/dL (74-106); Potassium 3.9 mmol/L (3.5-5.1); Sodium Level 141 mmol/L (136-145)
--- NOTE | 2021-05-14 14:55 | PCM.HP.STD ---
HPI - General General Date of Admission: 05/14/21 Date of Service: 05/14/21 Chief Complaint: Fall, dizziness -1 day HPI Narrative ALISHA AG, is a 65 F who presents after a fall. Patient was in her usual state of health and was coming down the staircase when she tripped and fell. She was seen in the ED, imaging have all been unremarkable. She complains of pain at the back of her neck where she has a hematoma forming. She can planes of feeling dizzy with moving her head as well as worried that she might not be safe at home after this fall. Denies any chest pain or palpitations. [facility] Medical History Anxiety and depression Arthritis Asthma Back pain child Depression Difficulty balancing GERD (gastroesophageal reflux disease) Hay fever Hypoglycemia IBS (irritable bowel syndrome) Incontinence Knee pain Low calcium levels Melanoma Osteopenia Home Medications lansoprazole 30 mg PO DAILY 02/06/14 [History Last Taken 08/04/19 08:00 30 mg] montelukast 10 mg PO DAILY 02/06/14 [History Last Taken 08/04/19 08:00 10 mg] sumatriptan succinate 100 mg PO .X1 PRN 02/06/14 [History Last Taken 08/05/19 12:00 100 mg] venlafaxine 75 mg PO TID 02/06/14 [History Last Taken 08/04/19 22:00 75 mg] ascorbic acid (vitamin C) 1,000 mg tablet 1,000 mg PO DAILY 07/31/17 [History Last Taken Unknown] cholecalciferol (vitamin D3) 25 mcg (1,000 unit) capsule 400 unit PO DAILY 07/31/17 [History Last Taken Unknown] docusate sodium 50 mg capsule 100 mg PO 4X/DAY 07/31/17 [History Last Taken Unknown] garlic 1 tab PO BID 07/31/17 [History Last Taken Unknown] vitamin A 2,400 mcg capsule 10,000 unit PO QDAY 07/31/17 [History Last Taken Unknown] vitamin E 200 unit capsule 400 unit PO QDAY 07/31/17 [History Last Taken Unknown] alendronate 70 mg PO BONILLA 05/28/18 [History Last Taken 08/02/19 08:00 70 mg] apple cider vinegar 450 mg PO DAILY 05/28/18 [History Last Taken Unknown] calcium carbonate 600 mg PO DAILY 05/28/18 [History Last Taken Unknown] cinnamon bark 1,000 mg PO BID 05/28/18 [History Last Taken Unknown] fluticasone propionate 2 puff INHALATION DAILY 05/28/18 [History Last Taken 08/04/19 08:00 2 puff] magnesium 250 mg PO TID 05/28/18 [History Last Taken Unknown] omega-3 fatty acids-fish oil 1 ea PO DAILY 05/28/18 [History Last Taken 05/27/18] turmeric root extract 1,000 mg PO BID 05/28/18 [History Last Taken 05/26/18] gabapentin 1 tab PO TID 08/06/19 [History Last Taken Unknown] melatonin 5 mg PO DAILY 10/03/19 [History Last Taken Unknown] Allergy/AdvReac Type Severity Reaction Status Date / Time chocolate flavor Allergy Unknown Verified 05/14/21 11:15 fexofenadine [From Ariadna] Allergy Unknown Verified 05/14/21 11:15 pineapple Allergy Unknown Verified 05/14/21 11:15 amoxicillin [Amoxicillin] AdvReac Other Verified 05/14/21 11:15 bupropion HCl AdvReac Other Verified 05/14/21 11:15 [From Wellbutrin] egg AdvReac Other Verified 05/14/21 11:15 morphine AdvReac Itching Verified 05/14/21 11:15 cosmetics Allergy Unknown Uncoded 05/14/21 11:15 nuts Allergy Unknown Uncoded 05/14/21 11:15 ADVACODO AdvReac Unknown Uncoded 05/14/21 11:15 Family History Other Asthma Colon cancer Surgical History Hx of knee surgery S/P breast lumpectomy Social History Smoking Status: Never smoker alcohol intake: never substance use type: does not use what type of physical activity do you participate in: walking and bicycling frequency: 1-2 times per week ROS ROS Narrative Constitutional: Reports:Denies: Anorexia, Chills, Fever, Night Sweats, Weight Change Eyes: Denies: Blurred vision, Cataracts, Conjunctivae Inflammation, Pain, Redness, Vision Change HEENT: Complains of pain in the back of the head, denies: Difficulty Hearing, Difficulty Swallowing, Head Aches, Hearing Changes, Sinus Congestion, Sinus Drainage Cardiovascular: Denies: Chest Pain, Orthopnea, Palpitations Respiratory: Denies: Cough, Shortness of breath at rest, Sputum production Gastrointestinal: Denies: Abdominal Pain, Nausea, Vomiting Genitourinary: Denies: Dysuria Musculoskeletal: Denies: Joint Pain, Joint stiffness, Joint swelling, Joint Tenderness Skin: Denies: Rash, Wounds Neurological: Denies: Numbness, Tingling, Focal weakness Vital Signs Vital Signs Vital Signs: 05/14/21 11:16 05/14/21 11:41 05/14/21 13:15 Temperature 98.6 F Temperature Source Temporal Pulse Rate 68 67 Respiratory Rate 18 18 Respiratory Effort Normal Respiratory Depth Normal Respiratory Pattern Normal Blood Pressure 195/96 H Blood Pressure Mean 129 Pulse Ox 95 96 Oxygen Delivery Method Room Air Room Air Room Air Oxygen Flow Rate (L/min) 98 05/14/21 14:05 05/14/21 14:22 05/14/21 14:48 Temperature 98.4 F Temperature Source Temporal Pulse Rate 68 63 64 Respiratory Rate 16 16 18 Respiratory Effort Respiratory Depth Respiratory Pattern Blood Pressure 206/89 H 174/79 H 174/87 H Blood Pressure Mean 128 110 116 Pulse Ox 93 93 97 Oxygen Delivery Method Room Air Room Air Room Air Oxygen Flow Rate (L/min) Weight Weight: 67.2 kg Body Mass Index (BMI) 27.1 Physical Exam Narrative Physical exam: General: Alert, Oriented x3, Cooperative, in mild distress, well developed HEENT: Atraumatic Oral: Moist Mucosa Neck: Supple Lungs: Diminished to auscultation Cardiovascular: HS I+II, regular, no murmurs Abdomen: Bowel Sounds Present, Soft, Non Tender Extremities: No edema Results Lab / Micro Data Result Diagrams: 05/14/21 13:52 05/14/21 13:52 Labs: Laboratory Results - last 24 hr 05/14/21 13:52: WBC 8.1, RBC 4.53, Hgb 14.4, Hct 44.7, MCV 98.7, MCH 31.8, MCHC 32.2, RDW Std Deviation 50.0 H, RDW Coeff of [place] 13.7, Plt Count 202, MPV 10.0, Immature Gran % (Auto) 0.200, Neut % (Auto) 74.1 H, Lymph % (Auto) 15.5 L, [place] % (Auto) 8.0, Eos % (Auto) 2.0, Baso % (Auto) 0.2, Absolute Neuts (auto) 6.0, Absolute Lymphs (auto) 1.26, Nucleated RBC % 0 05/14/21 13:52: Sodium 141, Potassium 3.9, Chloride 107, Carbon Dioxide 28.0, Anion Gap 6, BUN 11, Creatinine 0.74, Estim Creat Clear Calc 43.18, Est GFR (MDRD) Af Amer 101, Est GFR (MDRD) Non-Af 84, BUN/Creatinine Ratio 15.0, Glucose 104, Calcium 9.[address] 05/14/21 11:33 IMPRESSION: No acute intracranial hemorrhage, mass effect or acute large territory infarcts Electronically Signed: Wei Dior MD at 12:37 EDT Tel , Service support , Cervical Spine CT 05/14/21 11:33 Shoulder X-Ray 05/14/21 11:33 Hand X-Ray 05/14/21 11:54 Hand X-Ray 05/14/21 12:10 Assessment & Plan Assessment/Plan (1) Fall: QUALIFIERS: Encounter type: initial encounter Qualified Code(s): W19.XXXA - Unspecified fall, initial encounter PLAN: 1. Dizziness, status post fall, mechanical. Patient denied any syncope or presyncope. No history of recurrent falls She was coming down staircase from [facility] CT of the brain as well as cervical spine CT was unremarkable X-ray of the shoulder and hand were unremarkable Patient states that she feels dizzy with moving her head. She cannot go home as she lives alone Will admit under observation for monitoring PT/OT to evaluate and treat 2. Uncontrolled blood pressure likely secondary to pain We will to control pain, continue to monitor blood pressure, hydralazine as needed 3. History of chronic back pain Charges/Coding Visit Charges OBSV E&M: 49698 Initial observation care L3
--- NOTE | 2021-05-14 17:17 | PCS.PANDOC ---
PANDEMIC DOCUMENTATION INITIATED: Date: 03/13/2021 Time: 190
[2021-05-14] MEDS: oxyCODONE 5 MG Tablet PO (17:59)
[2021-05-14] MEDS: Docusate Sodium 100 MG Capsule PO ×2 (18:00→21:48)
[2021-05-14] MEDS: Rizatriptan Benzoate 10 MG Tablet PO (20:37)
[2021-05-14] MEDS: Heparin Injection (Vial) 5,000 UNIT/ML VIAL 5000 UNIT SC (21:48)
[2021-05-14] MEDS: Acetaminophen 500 MG Tablet 1000 MG PO (21:48)
[2021-05-14] MEDS: Venlafaxine HCl 75 MG Tablet PO (21:48)
[2021-05-15] VITALS (12 sets, daily range): BP systolic 147–183; BP diastolic 70–126; PULSE 70–120; RESP 16–18; TEMP 36.8–37.3; O2SAT 95–98
[2021-05-15 05:20] LABS: Absolute Lymphocyte Count 1.68 X10^3/uL (0.83-4.51); Absolute Neutrophil Count 3.7 X10^3/uL (2.0-7.7); Basophil# 0.03 X10^3/uL; Basophil% 0.5 % (0-1); Eosinophils% 3.2 % (0-5); Hematocrit 44.1 % (37-47); Hemoglobin 14.2 g/dL (12.0-15.0); Lymphocyte # 1.68 X10^3/ul (0.83-4.51); Lymphocyte % 27.1 % (19-41); Mean Corp Hgb Conc 32.2 g/dL (32-36); Mean Corpuscular Hgb 31.5 pg (27.0-32.0); Mean Corpuscular Volume 97.8 fL (81-99); Mean Platelet Vol. 10.1 fl (6.2-12.0); Monocyte# 0.56 X10^3/uL; NRBC Flagged by Analyzer 0 % (0-5); Neutrophil # 3.73 X10^3/uL (2.7-7.7); Platelet Count 217 K/mm3 (150-450); RBC Distribution Width CV 13.8 % (11.6-14.6); RBC Distribution Width SD 50.4 fl (35.1-43.9); Red Blood Count 4.51 M/mm3 (4.2-5.4); White Blood Count 6.2 K/mm3 (4.4-11.0)
[2021-05-15 05:44] LABS: AST(SGOT) 13 U/L (15-37); Alanine Aminotransfer ALT/SGPT 15 U/L (13-56); Albumin, Serum 3.4 g/dL (3.2-5.0); Alkaline Phosphatase 92 U/L (45-117); Anion Gap 7 (5-15); BUN 10 mg/dL (7-18); BUN/Creat Ratio 13.8 RATIO (10-20); Chloride 106 mmol/L (98-107); Creatinine, Serum 0.73 mg/dL (0.55-1.02); EST Glomerular Filtration Rate 85 mL/min (>60); Est Glom Filt Rate - Afr Amer 103 mL/min (>60); Estimated Creatinine Clearance 43.18 ml/min; Globulin 3.5 g/dL (2.2-4.2); Glucose 104 mg/dL (74-106); Potassium 4.2 mmol/L (3.5-5.1); Protein, Total 6.9 g/dL (6.4-8.2); Sodium Level 139 mmol/L (136-145)
[2021-05-15] MEDS: 0.9% Saline Lock 10 ML Syringe IV ×2 (05:56→20:02)
[2021-05-15] MEDS: Ondansetron 4 MG/2 ML Vial IV (05:56)
[2021-05-15] MEDS: Acetaminophen 500 MG Tablet 1000 MG PO ×3 (06:13→21:47)
[2021-05-15] MEDS: Venlafaxine HCl 75 MG Tablet PO (06:14)
[2021-05-15] MEDS: hydrALAZINE 20 MG/ML Vial 5 MG IV ×2 (07:58→20:01)
[2021-05-15] MEDS: proMETHazine 25 MG/ML Syringe 12.5 MG IM (10:42)
[2021-05-15] MEDS: Ascorbic Acid 500 MG Tablet 1000 MG PO (11:06)
[2021-05-15] MEDS: Pantoprazole Sodium 40 MG Tablet PO (11:06)
[2021-05-15] MEDS: Calcium Carbonate 500 MG Tablet PO (11:06)
[2021-05-15] MEDS: Montelukast 10 MG Tablet PO (11:07)
[2021-05-15] MEDS: Heparin Injection (Vial) 5,000 UNIT/ML VIAL 5000 UNIT SC ×2 (11:07→21:47)
[2021-05-15] MEDS: Docusate Sodium 100 MG Capsule PO ×4 (11:08→21:47)
[2021-05-15] MEDS: Cholecalciferol (VIT D3) 25 MCG TABLET (1,000 UNITS) PO (11:08)
--- NOTE | 2021-05-15 15:05 | CASEMGMT ---
PABLO CM in to discuss SUÁREZ form with patient. RN CM explained SUÁREZ form, patient voiced understanding. Pt signed form and filed in chart. Pt provided with a copy of signed SUÁREZ form. Patient had no further questions or concerns at this time.
[2021-05-15] MEDS: oxyCODONE 5 MG Tablet PO (15:18)
[2021-05-15] MEDS: amLODIPine 5 MG Tablet PO (15:20)
[2021-05-15] MEDS: Lactated Ringers 1,000 ML 60 ML IV (15:21)
--- NOTE | 2021-05-15 16:14 | PCM.PN.HOSP ---
Subjective Subjective Patient states she fell at [employer] walking [place] steps and states that her fall was mechanical and she tripped over her toe. She is complaining of a persistent mild headache with some intermittent dizziness and nausea. Objective Data Objective Data Vital Signs: Vital Signs Temp Pulse Resp BP Pulse Ox 98.3 F 79 18 183/99 H 97 05/15/21 07:45 05/15/21 13:25 05/15/21 07:45 05/15/21 13:25 05/15/21 07:45 Oxygen Flow Rate (L/min) 98 Oxygen Delivery Method Room Air Weight: 61.9 kg Body Mass Index (BMI) 25.0 Intake & Output: Intake and Output for Last 24 Hours 05/13/21 05/14/21 05/15/21 23:59 23:59 23:59 Intake Total 100 / 100 200 / 200 Output Total 300 / 300 700 / 700 Balance -200 / -200 -500 / -500 Lab / Micro Data Result Diagrams: 05/15/21 05:04 05/15/21 05:04 Labs: Laboratory Results - last 24 hr 05/15/21 05:04: WBC 6.2, RBC 4.51, Hgb 14.2, Hct 44.1, MCV 97.8, MCH 31.5, MCHC 32.2, RDW Std Deviation 50.4 H, RDW Coeff of Roopa 13.8, Plt Count 217, MPV 10.1, Immature Gran % (Auto) 0.200, Neut % (Auto) 60.0, Lymph % (Auto) 27.1, [place] % (Auto) 9.0, Eos % (Auto) 3.2, Baso % (Auto) 0.5, Absolute Neuts (auto) 3.7, Absolute Lymphs (auto) 1.68, Nucleated RBC % 0 05/15/21 05:04: Sodium 139, Potassium 4.2, Chloride 106, Carbon Dioxide 26.0, Anion Gap 7, BUN 10, Creatinine 0.73, Estim Creat Clear Calc 43.18, Est GFR (MDRD) Af Amer 103, Est GFR (MDRD) Non-Af 85, BUN/Creatinine Ratio 13.8, Glucose 104, Calcium 9.0, Total Bilirubin 0.30, AST 13 L, ALT 15, Alkaline Phosphatase 92, Total Protein 6.9, Albumin 3.4, Globulin 3.5, Albumin/Globulin Ratio 1.0 Physical Exam Const alert, oriented x3, no apparent distress, average body habitus and healthy appearing Constitutional Narrative: Upper middle-aged white female sitting up in bed, asking to recline some, nontoxic, no acute distress Exam Limitations: no limitations HEENT HEENT Narrative: Small cut on posterior head that is no longer draining, abrasion on forehead Head and Scalp: normocephalic Eyes PERRL, EOMs intact bilaterally and conjunctivae normal Resp normal respiratory effort, no retractions, no use of accessory muscles and clear to auscultation bilaterally Auscultation: Negative for crackles, rales, rhonchi or wheezes Cardio regular rate, regular rhythm, S1 normal heart sound, S2 normal heart sound, no murmurs, no rub, no gallops, no clicks and no JVD GI normal to inspection, nondistended, normoactive bowel sounds, soft to palpation, non-tender, non-distended and hepatosplenomegaly Extremity no clubbing, cyanosis or edema Peripheral Pulses: Yes pulses 2+ throughout Skin skin turgor normal, no jaundice and no petechiae Skin Narrative: Head abrasion and cut as noted above Neuro oriented x3, CN's II-XII intact bilaterally, moves all extremities and no focal motor deficits Sensorium / Orientation: awake and alert Speech: speech normal Psych Mood & Affect: anxious Assessment & Plan Assessment/Plan (1) Fall: QUALIFIERS: Encounter type: initial encounter Qualified Code(s): W19.XXXA - Unspecified fall, initial encounter (2) Dizziness: (3) Nausea: (4) Contusion of right shoulder region: (5) Contusion of hand: PLAN: Close injury status post fall -fall was mechanical -Suspect concussion -Orthostatics of negative -Patient with some residual mild headache but primary complaint is dizziness and nausea -We will recommend follow-up with neurology at discharge -PT/OT consultations -CT of her head and neck were unremarkable Shoulder and hand contusion-right -No fractures noted on imaging -Continue PT OT -Encourage mobilization to avoid shoulder mobility restrictions Dizziness -Patient with horizontal nystagmus -Suspect BPPV after head trauma -PT to evaluate and treat for BPPV -As needed meclizine ordered Nausea -Suspect this is related to vertigo -We will add as needed meclizine -Antiemetics as needed -Since p.o. intake has not been great we will start LR at 60 cc/h to avoid dehydration Elevated blood pressure -Patient has had persistent elevation throughout her hospitalization -Would recommend outpatient follow-up for hypertension -We will start low-dose Norvasc while here and monitor blood pressures -No definitive diagnosis of hypertension noted in her chart Seasonal allergies -Continue home medications History of chronic back pain -Continue home meds DVT prophylaxis -Continue heparin Charges/Coding Visit Charges Inpatient E&M: 37712 Subs Hosp L2
[2021-05-15] MEDS: Meclizine 12.5 MG Tablet PO (17:31)
[2021-05-15] MEDS: Rizatriptan Benzoate 10 MG Tablet PO (17:32)
[2021-05-15] MEDS: Budesonide Respules 0.5 MG/2 ML AMPUL.NEB. INHALATION (19:34)
[2021-05-16] VITALS (8 sets, daily range): BP systolic 135–177; BP diastolic 58–83; PULSE 76–112; RESP 16–18; TEMP 36.6–37.4; O2SAT 94–98
[2021-05-16] MEDS: oxyCODONE 5 MG Tablet PO (03:22)
[2021-05-16 05:38] LABS: Absolute Lymphocyte Count 1.82 X10^3/uL (0.83-4.51); Basophil# 0.03 X10^3/uL; Basophil% 0.4 % (0-1); Eosinophil# 0.16 X10^3/uL; Eosinophils% 2.4 % (0-5); Hematocrit 45.6 % (37-47); Hemoglobin 14.8 g/dL (12.0-15.0); Lymphocyte # 1.82 X10^3/ul (0.83-4.51); Lymphocyte % 27.1 % (19-41); Mean Corp Hgb Conc 32.5 g/dL (32-36); Mean Corpuscular Hgb 31.6 pg (27.0-32.0); Mean Corpuscular Volume 97.4 fL (81-99); Mean Platelet Vol. 10.2 fl (6.2-12.0); Monocyte# 0.69 X10^3/uL; Monocyte% 10.3 % (0-10); NRBC Flagged by Analyzer 0 % (0-5); Neutrophil % 59.5 % (47-70); Platelet Count 210 K/mm3 (150-450); RBC Distribution Width SD 50.4 fl (35.1-43.9); Red Blood Count 4.68 M/mm3 (4.2-5.4); White Blood Count 6.7 K/mm3 (4.4-11.0)
[2021-05-16 05:56] LABS: Anion Gap 11 (5-15); BUN 16 mg/dL (7-18); BUN/Creat Ratio 24.7 RATIO (10-20); Calcium,Total 9.2 mg/dL (8.5-10.1); Chloride 106 mmol/L (98-107); Creatinine, Serum 0.65 mg/dL (0.55-1.02); EST Glomerular Filtration Rate 97 mL/min (>60); Est Glom Filt Rate - Afr Amer 117 mL/min (>60); Estimated Creatinine Clearance 43.18 ml/min; Glucose 95 mg/dL (74-106); Potassium 3.9 mmol/L (3.5-5.1); Sodium Level 139 mmol/L (136-145)
[2021-05-16] MEDS: Acetaminophen 500 MG Tablet 1000 MG PO ×3 (05:57→21:36)
[2021-05-16] MEDS: Meclizine 12.5 MG Tablet PO (06:01)
[2021-05-16] MEDS: Rizatriptan Benzoate 10 MG Tablet PO (06:03)
[2021-05-16] MEDS: Ascorbic Acid 500 MG Tablet 1000 MG PO (09:58)
[2021-05-16] MEDS: Venlafaxine HCl 75 MG Tablet PO (09:59)
[2021-05-16] MEDS: Docusate Sodium 100 MG Capsule PO ×3 (09:59→21:35)
[2021-05-16] MEDS: Cholecalciferol (VIT D3) 25 MCG TABLET (1,000 UNITS) PO (09:59)
[2021-05-16] MEDS: Calcium Carbonate 500 MG Tablet PO (09:59)
[2021-05-16] MEDS: Pantoprazole Sodium 40 MG Tablet PO ×2 (09:59→21:35)
[2021-05-16] MEDS: Montelukast 10 MG Tablet PO (10:00)
[2021-05-16] MEDS: Heparin Injection (Vial) 5,000 UNIT/ML VIAL 5000 UNIT SC ×2 (10:00→21:36)
[2021-05-16] MEDS: amLODIPine 5 MG Tablet PO ×2 (10:08→12:21)
--- NOTE | 2021-05-16 11:59 | MRI_ITS ---
STUDY: MRI BRAIN WITHOUT CONTRAST REASON FOR EXAM: Female, 65 years old. Anisocoria, pt fell/ hit posterior head, dizzy TECHNIQUE: Standardized multiplanar fat and water weighted pulse sequences were obtained. COMPARISON: Head CT 05/14/2021. FINDINGS: No intracranial mass, mass effect, or midline shift. No hemorrhage, territorial infarct or acute ischemia. Normal size of the ventricles and extra-axial spaces for the patient''s age. There are a limited number of small white matter hyperintensities, distributed throughout the deep white matter tracts of the cerebral hemispheres, consistent with mild chronic white matter ischemic changes. Normal bilateral basal ganglia. Normal thalami. There is no extra-axial fluid accumulation. Normal flow voids within the major intracranial circulation suggesting patency by spin echo criteria. Normal sella turcica, pituitary gland, infundibular stalk, optic chiasm and hypothalamus. There are chronic white matter ischemic changes of the argenis. The midbrain and medulla are otherwise normal. Normal cerebellum. Normal basal cisterns. Normal bilateral temporal bones. Normal bilateral internal auditory canals. Normal visualized paranasal sinuses. Normal calvarium and skull base. Normal visualized soft tissue structures. MRI/Brain without Contrast IMPRESSION: 1. No acute findings. 2. Mild microvascular ischemic changes. Electronically Signed: Concepción Dinh MD at 16:21 EDT Tel , Service support ,
--- NOTE | 2021-05-16 12:01 | PCM.PN.HOSP ---
Subjective Subjective Patient notes she is feeling some better today. She still is getting intermittent dizziness/vertigo that she notices mostly with turning her head to the right. Her nausea and vomiting has improved significantly and she is able to take in p.o. better. She did not see physical therapy yesterday as she was not feeling up to it. I did discuss with her the importance of seeing physical therapy for her vertigo as part of treatment. She did agree and stated she would be more amenable to that today as she is feeling better. Objective Data Objective Data Vital Signs: Vital Signs Temp Pulse Resp BP Pulse Ox 97.8 F 76 18 154/83 H 96 05/16/21 07:00 05/16/21 07:00 05/16/21 07:00 05/16/21 07:00 05/16/21 08:57 Oxygen Flow Rate (L/min) 98 Oxygen Delivery Method Room Air Weight: 61.779 kg Body Mass Index (BMI) 25.0 Intake & Output: Intake and Output for Last 24 Hours 05/14/21 05/15/21 05/16/21 23:59 23:59 23:59 Intake Total 100 / 100 400 / 400 1000 / 1000 Output Total 300 / 300 1050 / 1400 850 / 850 Balance -200 / -200 -650 / -1000 150 / 150 Lab / Micro Data Result Diagrams: 05/16/21 05:22 05/16/21 05:22 Labs: Laboratory Results - last 24 hr 05/16/21 05:22: WBC 6.7, RBC 4.68, Hgb 14.8, Hct 45.6, MCV 97.4, MCH 31.6, MCHC 32.5, RDW Std Deviation 50.4 H, RDW Coeff of Roopa 14.0, Plt Count 210, MPV 10.2, Immature Gran % (Auto) 0.300, Neut % (Auto) 59.5, Lymph % (Auto) 27.1, [place] % (Auto) 10.3 H, Eos % (Auto) 2.4, Baso % (Auto) 0.4, Absolute Neuts (auto) 4.0, Absolute Lymphs (auto) 1.82, Nucleated RBC % 0 05/16/21 05:22: Sodium 139, Potassium 3.9, Chloride 106, Carbon Dioxide 22.0, Anion Gap 11, BUN 16, Creatinine 0.65, Estim Creat Clear Calc 43.18, Est GFR (MDRD) Af Amer 117, Est GFR (MDRD) Non-Af 97, BUN/Creatinine Ratio 24.7 H, Glucose 95, Calcium 9.2 Physical Exam Narrative Physical exam: General: Alert, Oriented x3, Cooperative, in mild distress, well developed HEENT: Atraumatic Oral: Moist Mucosa Neck: Supple Lungs: Diminished to auscultation Cardiovascular: HS I+II, regular, no murmurs Abdomen: Bowel Sounds Present, Soft, Non Tender Extremities: No edema Const alert, oriented x3 and no apparent distress Constitutional Narrative: Upper middle-aged white female sitting up in a chair at the bedside, appears comfortable, nontoxic, appears much more comfortable than yesterday Exam Limitations: no limitations HEENT HEENT Narrative: Abrasion and glabellar region of forehead with no signs of infection, abrasion on posterior head with no drainage Eyes EOMs intact bilaterally and conjunctivae normal Eyes Narrative: Anisocoria with left pupil having a greater diameter than right, both are equally reactive Resp normal respiratory effort, no retractions, no use of accessory muscles and clear to auscultation bilaterally Auscultation: Negative for crackles, rales, rhonchi or wheezes Cardio regular rate, regular rhythm, S1 normal heart sound, S2 normal heart sound, no murmurs, no rub, no gallops, no clicks and no JVD GI normal to inspection, nondistended, normoactive bowel sounds, soft to palpation, non-tender, non-distended and hepatosplenomegaly Extremity no clubbing, cyanosis or edema Neuro oriented x3, moves all extremities and no focal motor deficits Neuro Narrative: Anisocoria as noted above Sensorium / Orientation: awake and alert Speech: speech normal Psych Mood & Affect: anxious Assessment & Plan Assessment/Plan (1) Fall: QUALIFIERS: Encounter type: initial encounter Qualified Code(s): W19.XXXA - Unspecified fall, initial encounter (2) Dizziness: (3) Nausea: (4) Contusion of right shoulder region: (5) Contusion of hand: PLAN: Close injury status post fall -fall was mechanical -Suspect concussion--> will have patient follow-up with Dr. Scott from neurology for post concussion syndrome after discharge -Orthostatics of negative -PT pending--> patient refused yesterday -CT of her head and neck were unremarkable -Patient with anisocoria on exam and therefore will check MRI Vertigo -Suspect this is BPPV--> increased risk with close head injury -Physical therapy is to evaluate and treat for this but patient refused yesterday -Meclizine ordered as needed Shoulder and hand contusion-right -No fractures noted on imaging -Continue PT OT -Encourage mobilization to avoid shoulder mobility restrictions Nausea -Resolved -P.o. intake has improved -DC IV fluids Elevated blood pressure -Patient has had persistent elevation throughout her hospitalization and remains elevated today -Would recommend outpatient follow-up for hypertension -Will increase Norvasc to 10 mg -No definitive diagnosis of hypertension noted in her chart Seasonal allergies -Continue home medications History of chronic back pain -Continue home meds DVT prophylaxis -Continue heparin Charges/Coding Visit Charges Inpatient E&M: 46741 Subs Hosp L2
--- NOTE | 2021-05-16 13:05 | CASEMGMT ---
PABLO GARF in to pt room, pt receiving vestibular therapy by PT and additional therapy is recommended. Patient was provided a list of [facility] providers including quality and resource use data and consistent with the patient?s preferred geographic region, medical needs, and insurance network. The patient?s preferred provider is [facility]. She is aware that this agency can provide vestibular therapy. SAPNA German at [facility], referral made. Awaiting returned call for acceptance.
[2021-05-16] MEDS: hydrALAZINE 20 MG/ML Vial 5 MG IV (13:48)
[2021-05-16] MEDS: 0.9% Saline Lock 10 ML Syringe IV (13:48)
[2021-05-16] MEDS: LORazepam 1 MG Tablet PO (17:35)
[2021-05-17 03:52] VITALS: BP 124/67; PULSE 104; RESP 16; TEMP 37.2; O2SAT 97
[2021-05-17] MEDS: Acetaminophen 500 MG Tablet 1000 MG PO ×2 (05:45→15:04)
[2021-05-17 06:56] VITALS: O2SAT 96
[2021-05-17 10:00] VITALS: BP 144/79; PULSE 109; RESP 16; TEMP 36.9; O2SAT 97
[2021-05-17] MEDS: Pantoprazole Sodium 40 MG Tablet PO (10:44)
[2021-05-17] MEDS: Calcium Carbonate 500 MG Tablet PO (10:44)
[2021-05-17] MEDS: Docusate Sodium 100 MG Capsule PO ×2 (10:44→15:00)
[2021-05-17] MEDS: Montelukast 10 MG Tablet PO (10:44)
[2021-05-17] MEDS: amLODIPine 10 MG Tablet PO (10:44)
[2021-05-17] MEDS: Venlafaxine HCl 75 MG Tablet PO (10:44)
[2021-05-17] MEDS: Ascorbic Acid 500 MG Tablet 1000 MG PO (10:45)
[2021-05-17] MEDS: Heparin Injection (Vial) 5,000 UNIT/ML VIAL 5000 UNIT SC (10:47)
[2021-05-17] MEDS: Cholecalciferol (VIT D3) 25 MCG TABLET (1,000 UNITS) PO (10:47)
--- NOTE | 2021-05-17 11:56 | PCM.DC.SUM ---
Providers Date of Admission: 05/14/21 Primary Care Physician: Dr. Mariana James DO Reason For Visit: FALL, POSSIBLE CONCUSSION Diagnosis Discharge Diagnosis (1) Fall: Status: Acute Code(s): W19.XXXA - Unspecified fall, initial encounter Qualifiers: Encounter type: initial encounter Qualified Code(s): W19.XXXA - Unspecified fall, initial encounter (2) Dizziness: Status: Acute Code(s): R42 - Dizziness and giddiness (3) Nausea: Status: Acute Code(s): R11.0 - Nausea (4) Contusion of right shoulder region: Status: Acute Code(s): S40.011A - Contusion of right shoulder, initial encounter (5) Contusion of hand: Status: Acute Code(s): S60.229A - Contusion of unspecified hand, initial encounter Medications at Discharge Home Medications lansoprazole 30 mg PO DAILY 02/06/14 montelukast 10 mg PO DAILY 02/06/14 sumatriptan succinate 100 mg PO .X1 PRN 02/06/14 venlafaxine 75 mg PO DAILY 02/06/14 ascorbic acid (vitamin C) 1,000 mg tablet 1,000 mg PO DAILY 07/31/17 cholecalciferol (vitamin D3) 25 mcg (1,000 unit) capsule 400 unit PO DAILY 07/31/17 docusate sodium 50 mg capsule 100 mg PO 4X/DAY 07/31/17 garlic 1 tab PO BID 07/31/17 vitamin A 2,400 mcg capsule 10,000 unit PO QDAY 07/31/17 vitamin E 200 unit capsule 400 unit PO QDAY 07/31/17 alendronate 70 mg PO BONILLA 05/28/18 apple cider vinegar 450 mg PO DAILY 05/28/18 calcium carbonate 600 mg PO DAILY 05/28/18 cinnamon bark 1,000 mg PO BID 05/28/18 fluticasone propionate 2 puff INHALATION DAILY 05/28/18 magnesium 250 mg PO TID 05/28/18 omega-3 fatty acids-fish oil 1 ea PO DAILY 05/28/18 turmeric root extract 1,000 mg PO BID 05/28/18 gabapentin 1 tab PO TID 08/06/19 melatonin 5 mg PO DAILY 10/03/19 amlodipine 10 mg PO DAILY #30 tab 05/17/21 meclizine 12.5 mg PO TID PRN PRN #90 tab 05/17/21 Hospital Course Operations None Procedures None Summary of Care Provided Minutes Spent on Discharge: 38 Hospital Course: Ms. Estrada is a 65-year-old white female who presented to the emergency department at [facility] on 05/14/2021 complaining of a fall and dizziness. She reported that she was in her usual state of health and was coming down the staircase at [employer] when she tripped and fell. She hurt her right hand, right shoulder and hit her head. She reports the fall was mechanical in nature. There was no loss of consciousness. X-rays of her hand and shoulder were performed in the emergency department no fracture was identified. A CT of her head was performed and showed no acute intracranial hemorrhage, mass-effect, or large territory of infarct. A CT of her neck was also performed given her fall and there was no evidence of acute cervical spinal fractures. Cervical spondylitic changes with multilevel neural foraminal narrowing and central canal stenosis was noted. She was noted to have anisocoria on exam with the left pupil being slightly more dilated than the right. She denied history of cataract surgery and therefore an MRI was performed. This showed no acute findings and only mild microvascular chronic ischemic changes. She had persistent dizziness with turning her head to the right. I suspect this is related to BPPV as she was noted to have horizontal nystagmus. She was referred to physical therapy for vascular rehab and I did evaluate her and start treatment here. She had no acute inpatient rehab needs at discharge but was referred for home health for physical therapy/vestibular therapy after discharge and a prescription for a walker was given to her given her unsteadiness with her vertigo. She was also referred to follow-up with a postconcussive neurologist, Dr. Scott, as soon as possible after discharge. His contact information was given to her and she was encouraged to call tomorrow for follow-up as soon as possible. She was also instructed to follow-up with her primary care physician in 1 week. For her pain continued Tylenol or intermittent ibuprofen is appropriate and we are avoiding narcotics as able with her dizziness. She was discharged in stable condition. Of note her blood pressure was markedly elevated throughout her entire stay. She was started on Norvasc 10 mg daily which did improve her blood pressure. She was discharged with a prescription for this and instructed to follow-up with her primary care physician for frequent blood pressure checks in the interim. We also gave her a prescription for Antivert. Discharge diagnoses: Mechanical fall Closed head injury-concussion BPPV Anisocoria with a negative MRI Hypertension Osteoporosis Vitamin D deficiency Neuropathy Seasonal allergies Migraine headaches Hyperlipidemia Patient Physical Exam Const alert, oriented x3, no apparent distress, average body habitus and healthy appearing Constitutional Narrative: Upper middle-aged white female sitting up in bed on her left side, appears comfortable, nontoxic General Appearance: cooperative, comfortable, well kempt and well developed Orientation / Consciousness: awake Exam Limitations: no limitations HEENT normocephalic, hearing grossly normal bilaterally and moist oral mucous membranes HEENT Narrative: Well-healing abrasion on the forehead and posterior head Eyes EOMs intact bilaterally and conjunctivae normal Eyes Narrative: Anisocoria with left pupil having a greater diameter than right, both are equally reactive-this has been present since admission Neck no lymphadenopathy, supple and no JVD Resp normal respiratory effort, no retractions, no use of accessory muscles and clear to auscultation bilaterally Auscultation: Negative for crackles, rales, rhonchi or wheezes Cardio regular rate, regular rhythm, S1 normal heart sound, S2 normal heart sound, no murmurs, no rub, no gallops, no clicks and no JVD GI normal to inspection, nondistended, normoactive bowel sounds, soft to palpation, non-tender, non-distended and hepatosplenomegaly Extremity normal to inspection and no clubbing, cyanosis or edema Skin no rashes or lesions noted, skin turgor normal, no jaundice and no petechiae Skin Narrative: Head abrasion and cut as noted above Neuro oriented x3, moves all extremities, no focal motor deficits and no sensory deficits noted Neuro Narrative: Anisocoria as noted above Sensorium / Orientation: awake and alert Speech: speech normal Motor Exam: strength 5/5 throughout Psych Mood & Affect: anxious Weight / BMI Weight Weight: 62.2 kg Body Mass Index (BMI) 25.0 ABG / Lab / Microbiology Data Result Diagrams: 05/16/21 05:22 05/16/21 05:22 Radiography Diagnostic Testing: Radiology Impression Brain MRI 05/16/21 11:59 IMPRESSION: 1. No acute findings. 2. Mild microvascular ischemic changes. Electronically Signed: Concepción Dinh MD at 16:21 EDT Tel , Service support , D/C Instructions Discharge Diet: Low fat / Low cholesterol Discharge Activity: May Not Drive (until you see PCP or Neurology) Meaningful Use Info Meaningful Use Diagnoses (Choose all that apply): None applicable Discharge Plan Admission Admit Date/Time: 05/14/21 14:44 Primary Reason for Your Visit: Fall with Closed Head Injury/Concussion Attending Provider: Elvira Gutierrez Primary Care Provider: Mariana James Instructions Additional Instructions / Restrictions: -Please call Dr. Scott (neurology) tomorrow for appt as soon as possible -Home health for vestibular rehab Discharge Orders/Prescriptions Prescriptions: New amlodipine 10 mg Tablet 10 mg PO DAILY Qty: 30 RF: 0 meclizine 12.5 mg Tablet 12.5 mg PO TID PRN PRN (Reason: dizziness) Qty: 90 RF: 0 Continued vitamin A 8,000 unit capsule 10,000 unit PO QDAY RF: 0 ascorbic acid (vitamin C) 1,000 mg tablet 1,000 mg PO DAILY RF: 0 cholecalciferol (vitamin D3) [Vitamin D3] 1,000 unit capsule 400 unit PO DAILY RF: 0 vitamin E 200 unit capsule 400 unit PO QDAY RF: 0 garlic tablet tablet 1 tab PO BID RF: 0 docusate sodium [Stool Softener] 50 mg capsule 100 mg PO 4X/DAY RF: 0 venlafaxine 75 MG tablet 75 mg PO DAILY RF: 0 sumatriptan succinate 100 MG tablet 100 mg PO .X1 PRN RF: 0 lansoprazole 30 MG capsule 30 mg PO DAILY RF: 0 montelukast 10 MG tablet 10 mg PO DAILY RF: 0 alendronate 70 MG tablet 70 mg PO BONILLA RF: 0 calcium carbonate 600 MG tablet 600 mg PO DAILY RF: 0 magnesium 250 MG tablet 250 mg PO TID RF: 0 fluticasone propionate 1 INHALER inhaler 2 puff Inhalation DAILY RF: 0 cinnamon bark 500 MG capsule 1,000 mg PO BID RF: 0 omega-3 fatty acids-fish oil 1 EACH capsule 1 ea PO DAILY RF: 0 apple cider vinegar 300 MG tablet 450 mg PO DAILY RF: 0 turmeric root extract 500 MG capsule 1,000 mg PO BID RF: 0 gabapentin 100 MG capsule 1 tab PO TID RF: 0 melatonin 5 MG capsule 5 mg PO DAILY RF: 0 Referrals / Follow Up: Jamie Scott MD [NON-STAFF] - Within 2 Weeks (Post concussive syndrome Call for appt) Mariana James DO [Primary Care Provider] - In 1 Week (hospital follow up and BP check) Disposition Disposition (needs filled in before D/C Order can be placed): Home Health Service Charges/Coding Visit Charges Inpatient E&M: 80817 Disch Hosp
--- NOTE | 2021-05-17 12:04 | CASEMGMT ---
Pt ready for dc. Per Monserrat at [facility], they are able to accept pt for SOC on Saturday.
--- NOTE | 2021-05-17 14:16 | CASEMGMT ---
RN CM in to pt room to make aware of FWW script. Pt provided with list of local in network DME companies, pt chose [employer]. Faxed script to [facility] for delivery to pt room prior to dc today. TC to [facility], spoke with Tara, she is aware of referral.
--- NOTE | 2021-05-17 15:11 | PCM.DC ---
Discharge Instructions Diet Discharge Diet: Low fat / Low cholesterol Activity Discharge Activity: Return to Normal Activity Return to work on:: 05/22/21 Follow Up Care Test Results: Test results from this visit will be discussed in further detail at your follow-up appointment, if applicable. Discharge Plan Admission Admit Date/Time: 05/14/21 14:44 Primary Reason for Your Visit: Fall with Closed Head Injury/Concussion Attending Provider: Elvira Gutierrez Primary Care Provider: Mariana James Instructions Additional Instructions / Restrictions: -Please call Dr. Scott (neurology) tomorrow for appt as soon as possible -[facility] for vestibular rehab Discharge Orders/Prescriptions Prescriptions: New amlodipine 10 mg Tablet 10 mg PO DAILY Qty: 30 RF: 0 meclizine 12.5 mg Tablet 12.5 mg PO TID PRN PRN (Reason: dizziness) Qty: 90 RF: 0 Continued vitamin A 8,000 unit capsule 10,000 unit PO QDAY RF: 0 ascorbic acid (vitamin C) 1,000 mg tablet 1,000 mg PO DAILY RF: 0 cholecalciferol (vitamin D3) [Vitamin D3] 1,000 unit capsule 400 unit PO DAILY RF: 0 vitamin E 200 unit capsule 400 unit PO QDAY RF: 0 garlic tablet tablet 1 tab PO BID RF: 0 docusate sodium [Stool Softener] 50 mg capsule 100 mg PO 4X/DAY RF: 0 venlafaxine 75 MG tablet 75 mg PO DAILY RF: 0 sumatriptan succinate 100 MG tablet 100 mg PO .X1 PRN RF: 0 lansoprazole 30 MG capsule 30 mg PO DAILY RF: 0 montelukast 10 MG tablet 10 mg PO DAILY RF: 0 alendronate 70 MG tablet 70 mg PO BONILLA RF: 0 calcium carbonate 600 MG tablet 600 mg PO DAILY RF: 0 magnesium 250 MG tablet 250 mg PO TID RF: 0 fluticasone propionate 1 INHALER inhaler 2 puff Inhalation DAILY RF: 0 cinnamon bark 500 MG capsule 1,000 mg PO BID RF: 0 omega-3 fatty acids-fish oil 1 EACH capsule 1 ea PO DAILY RF: 0 apple cider vinegar 300 MG tablet 450 mg PO DAILY RF: 0 turmeric root extract 500 MG capsule 1,000 mg PO BID RF: 0 gabapentin 100 MG capsule 1 tab PO TID RF: 0 melatonin 5 MG capsule 5 mg PO DAILY RF: 0 Referrals / Follow Up: Jamie Scott MD [NON-STAFF] - Within 2 Weeks (Post concussive syndrome Call for appt) Mariana James DO [Primary Care Provider] - In 1 Week Disposition Disposition (needs filled in before D/C Order can be placed): Home Health Service
[2021-05-17] MEDS: Meclizine 12.5 MG Tablet PO (15:14)
[2021-05-17 16:00] VITALS: BP 151/89; PULSE 94; RESP 16; TEMP 37; O2SAT 97
== END 2021-05-17 17:43 | disposition home health service (06) ==
LOC: ED 13:39 → MS3 18:31
PROVIDERS: Admitting Provider Internal Medicine; Emergency Provider Emergency Medicine; PCP Family Medicine; Visit Provider Internal Medicine
DX: S06.0X0A Concussion without loss of consciousness, initial encounter (principal); S40.011A Contusion of right shoulder, initial encounter; S10.93XA Contusion of unspecified part of neck, initial encounter; S00.81XA Abrasion of other part of head, initial encounter; S60.221A Contusion of right hand, initial encounter; F41.9 Anxiety disorder, unspecified; H57.02 Anisocoria; F32.A Depression, unspecified; J45.909 Unspecified asthma, uncomplicated; M19.90 Unspecified osteoarthritis, unspecified site; G89.29 Other chronic pain; I10 Essential (primary) hypertension; K21.9 Gastro-esophageal reflux disease without esophagitis; W10.9XXA Fall (on) (from) unspecified stairs and steps, initial encounter; Y93.89 Activity, other specified; Y92.22 Religious institution as the place of occurrence of the external cause; Y99.9 Unspecified external cause status; Z79.899 Other long term (current) drug therapy; Z79.51 Long term (current) use of inhaled steroids; E78.5 Hyperlipidemia, unspecified; E55.9 Vitamin D deficiency, unspecified; H81.10 Benign paroxysmal vertigo, unspecified ear
CPT/HCPCS: 36415; 70450; 70551; 72125; 73030; 73130; 80048; 80053; 85025; 94640; 96372; 96374; 96375; 96376; 97162; 97530; 97802; 99218; 99285; J7120; A4216; G0378; J2405

== ENCOUNTER 2021-09-19 13:00 | Outpatient (RCR) | payer MEDICARE, MEDICAID, SELFPAY ==
--- NOTE | 2021-08-08 18:15 | HP.PTEVAL ---
Patient's Visit Information ALISHA AG is a 65 year old F referred to Physical Therapy by Dr. Jamie Scott MD with a diagnosis of postconcussion syndrome. Date of Evaluation: 08/08/21 Physical Therapist: Estrada Amin, KIM, OCS, CSCS - Visit Plan Frequency: 1-2x /Week Duration: 2 Months Plan: 1-2x/week for 4-8 weeks for... 1. monitor tolerance to melva today. 2. habituation (looking up, VOR H, 180 turns, nods and turnas progression. 3. convergence exercises. - Subjective Tripped over foot on steps in April and hit head. Has had vertigo since. Saw Neuro and thinks she has vertigo. Had home therapy for positional. Does not have spinning anymore. Eyes get blurry when I try to do something up close. Turning head too quick can get a swoosh. Getting out of bed can be unsteady for a little bit. No more spinning and none in last 2 weeks. Did some home exercises which seemed to help. [place] has CONTI or ear pain in morning since fall when she is reading in am. CATscan at hospital was good, was in there for four day because she was dizzy and vomitting. Sleep is OK now. Not employed. Basic ADLS are going OK, dressing I, and eats and sits alot of day. Avoiding concentrating on paint by number., computer work is blurry. Enjoys knitting and beading but has not gotten back since back surgery in January. Is driving OK now. - Objective Walks normal and transfers I bed adn chair. Steps reciprocal with one rail. Loooking up gives her a swoosh. Cervical aROM WFL and without pain, UE AROM WNL with strength 4-/5. 2/3 bi and tri reflexes. Sensation WNL to gross light touch. + L HD for quick swoosh, - r HD, no obvious nystagmus. Oculomotor: no nystagmus with gaze or head shake. - skew eye deviation\. - ocular tilt. normal pursuit and saccades. convergence is slow. - head thrust. VOR gives some mild dizzyness horizontally. MSQ: no problems except head shake and nods mild, L HD mild, R turn 180 mild. - Balance/Special Test Scores Functional Gait Assessment Score: 28 % Disability: 6.6700 Dizziness Score: 38 - Goals Goal 1:: Pt feel dizzy swooshes are 99% improved and rare. Goal Time Frame: 6-8 Weeks Goal 2:: 29/30 FGA and able to look up without LOB Goal Time Frame: 4-6 Weeks Goal 3:: 50% im proved DHI score to 19 or better Goal Time Frame: 6-8 Weeks Goal 4:: Pt able to do home hobbies without blurriness. Goal Time Frame: 6-8 Weeks - Rehabilitation Potential Physical Therapy Diagnosis: deficits from vestibular since concussion causing some functional deficits. Rehabilitation Potential: Fair - Anticipated Interventions Patient/Client Instruction: Educate patient on: Condition, Plan of Care For the Purpose of:: To increase tolerance to activity/condition/position, To improve ability of physical actions for home/community/work/leisure, To improve gait and locomotor functions, To assume or resume ADL's Therapeutic Exercise to Include: Balance training Comment: vestibular ex For the Purpose of:: To increase tolerance to activity/condition/position, To improve ability of physical actions for home/community/work/leisure, To improve gait and locomotor functions Thank you for the opportunity to evaluate your patient. For Medicare and Medicare HMO plans, please review the plan of care and approve it. It will need to be FAXED BACK to us at [phone] for Medicare purposes. For Medicare only, by signing this I certify the plan of care. Please let me know if there are questions or concerns regarding this plan of care. Physician Signature: Date:
--- NOTE | 2021-09-19 13:30 | HP.PTREVAL ---
Dr. Jamie Scott MD, It has been my pleasure to treat ALISHA AG over the last 6 visits for postconcussion syndrome. Please see the progress note below for an update on the physical therapy plan of care! Subjective: 2 bad days and 3 good days. Yesterday was also good. Not sure what the pattern is for the bad days. Saturday took dramamine and meclizine prescription given. Up form knee ex only caused a problem Saturday but otherwise it is not an issue anymore. Home activities much better. reluctant to sew and clean out car. Objective/Function: Pt is not symptomatic with HEP any longer, has good balance and negative positional tests for the last two weeks. she is doing rather well with clinical testing but continues to have some reluctancies with home activities which may be giving her some bad days when she overdoes it. She is working through this process. Plan Plan: Pt to doctor next week. Clinically is doing wonderfully better but still has some reluctancies to get back to some activities based on intermittent worse days seemingly without pattern. To doctor next week and to decide what other options exist as her progress in therapy has stagnated. Pt to f/u in therapy next week as needed. Balance/Gait/Functional tests - Balance/Special Test Scores Functional Gait Assessment Score: 3 % Disability: 90.0000 Dizziness Score: 20 Goals Goal 1:: Pt feel dizzy swooshes are 99% improved and rare. Goal Time Frame: 6-8 Weeks Goal Progress: 70%, stagnant Goal 2:: 29/30 FGA and able to look up without LOB Goal Time Frame: 4-6 Weeks Goal Progress: Goal Met Goal 3:: 50% im proved DHI score to 19 or better Goal Time Frame: 6-8 Weeks Goal Progress: 20 currently, much better Goal 4:: Pt able to do home hobbies without blurriness. Goal Time Frame: 6-8 Weeks Goal Progress: Progressing Anticipated Interventions Patient/Client Instruction: Educate patient on: Condition, Plan of Care For the Purpose of:: To increase tolerance to activity/condition/position, To improve ability of physical actions for home/community/work/leisure, To improve gait and locomotor functions, To assume or resume ADL's Therapeutic Exercise to Include: Balance training Comment: vestibular ex For the Purpose of:: To increase tolerance to activity/condition/position, To improve ability of physical actions for home/community/work/leisure, To improve gait and locomotor functions Please do not hesitate to contact me at [phone] by phone or if you have questions or concerns regarding this new plan of care! Sincerely, Estrada Amin, DPT, OCS, CSCS
--- NOTE | 2021-11-09 17:26 | HP.PT.NRP ---
ALISHA AG was seen in my office for initial evaluation on 08/08/21. The following Plan of Care was established for this patient: Initial Frequency: 1-2x /Week Initial Duration: 2 Months Patient/Client Instruction: Educate patient on: Condition, Plan of Care For the Purpose of:: To increase tolerance to activity/condition/position, To improve ability of physical actions for home/community/work/leisure, To improve gait and locomotor functions, To assume or resume ADL's Therapeutic Exercise to Include: Balance training For the Purpose of:: To increase tolerance to activity/condition/position, To improve ability of physical actions for home/community/work/leisure, To improve gait and locomotor functions This patient was last seen in our office 09/19/21. Pertinent comments regarding their Physical therapy will appear below: Pt seen 6 visits of PT POC and was 70% better. She was to f/u with doctor after last session and call if needed to return. at this point, it has been over 6 weeks and I will discontinue from PT. At this point I will be discontinuing this patient from physical therapy. I would be happy to see this patient again in the future if found appropriate by the physician. Thank you! Estrada Amin, DPT, OCS, CSCS Balance/Gait/Functional tests - Balance/Special Test Scores Functional Gait Assessment Score: 3 % Disability: 90.0000 Dizziness Score: 20
== END 2021-09-19 19:00 | disposition home or self-care (01) ==
LOC: PT 13:00
PROVIDERS: PCP Family Medicine; Referring Provider Psychiatry & Neurology Neurology; Visit Provider Psychiatry & Neurology Neurology
DX: F07.81 Postconcussional syndrome (principal); H51.11 Convergence insufficiency; M54.17 Radiculopathy, lumbosacral region
CPT/HCPCS: 97162; 97530

== ENCOUNTER 2021-10-12 15:34 | Outpatient (CLI) | payer MEDICARE, MEDICAID, SELFPAY | END 2021-10-12 23:59 | disposition home or self-care (01) | LOC: LABSPEC 15:37 | PROVIDERS: PCP Family Medicine; Visit Provider Family Medicine | DX: N39.0 Urinary tract infection, site not specified (principal) | CPT/HCPCS: 87086; 87088; 87186 ==

== ENCOUNTER 2021-10-20 11:54 | Outpatient (CLI) | payer MEDICARE, MEDICAID, SELFPAY ==
--- NOTE | 2021-10-20 11:57 | US_ITS ---
STUDY: COMPLETE NON-OBSTETRICAL ULTRASOUND EXAMINATION OF THE FEMALE PELVIS OF 1230 HOURS ON 10/20/2021 REASON FOR EXAM: 66-year-old female with left lower quadrant pain. TECHNIQUE: Complete non-obstetrical ultrasound examination of this female pelvis was performed via the transvaginal approach. TECHNICAL QUALITY: Adequate. COMPARISON: None. FINDINGS: A mildly atrophic anteverted heterogeneous uterus with diffuse tiny calcifications, measuring 5.8 cm in length by 3.5 cm in AP diameter by 1.9 cm in transverse diameter. There is a hyperechoic endometrium with a thickness of 2.4 mm. There is no evidence of intrauterine cystic or solid mass lesions. There is no evidence of uterine fibroids. There is a very small nabothian cyst and normal-appearing cervix for age. Right ovary is not visualized. Left ovary measures 1.5 cm x 1.7 cm x 0.5 cm. There is no evidence of left ovarian torsion. There is no evidence of left ovarian cystic or solid mass lesions. There is no evidence of adnexal masses or free fluid in the cul-de-sac. US/Pelvic (Non ) IMPRESSION: 1. Mildly atrophic anteverted heterogeneous uterus with diffuse tiny calcifications. 2. Hyperechoic endometrium with a thickness of 2.4 mm. 3. No uterine fibroids. 4. Very small nabothian cyst. 5. Right ovary is not visualized. 6. Small normal left ovary without evidence of torsion or cystic or solid mass lesions. 7. No adnexal masses or free fluid in the cul-de-sac. Electronically Signed: Ramon Squires MD at 19:28 EDT ,
--- NOTE | 2021-10-20 11:58 | US_ITS ---
STUDY: COMPLETE NON-OBSTETRICAL ULTRASOUND EXAMINATION OF THE FEMALE PELVIS OF 1230 HOURS ON 10/20/2021 REASON FOR EXAM: 66-year-old female with left lower quadrant pain. TECHNIQUE: Complete non-obstetrical ultrasound examination of this female pelvis was performed via the transvaginal approach. TECHNICAL QUALITY: Adequate. COMPARISON: None. FINDINGS: A mildly atrophic anteverted heterogeneous uterus with diffuse tiny calcifications, measuring 5.8 cm in length by 3.5 cm in AP diameter by 1.9 cm in transverse diameter. There is a hyperechoic endometrium with a thickness of 2.4 mm. There is no evidence of intrauterine cystic or solid mass lesions. There is no evidence of uterine fibroids. There is a very small nabothian cyst and normal-appearing cervix for age. Right ovary is not visualized. Left ovary measures 1.5 cm x 1.7 cm x 0.5 cm. There is no evidence of left ovarian torsion. There is no evidence of left ovarian cystic or solid mass lesions. There is no evidence of adnexal masses or free fluid in the cul-de-sac. US/Transvaginal Non- IMPRESSION: 1. Mildly atrophic anteverted heterogeneous uterus with diffuse tiny calcifications. 2. Hyperechoic endometrium with a thickness of 2.4 mm. 3. No uterine fibroids. 4. Very small nabothian cyst. 5. Right ovary is not visualized. 6. Small normal left ovary without evidence of torsion or cystic or solid mass lesions. 7. No adnexal masses or free fluid in the cul-de-sac. Electronically Signed: Ramon Squires MD at 19:28 EDT ,
== END 2021-10-20 23:59 | disposition home or self-care (01) ==
LOC: US 11:54
PROVIDERS: PCP Family Medicine; Visit Provider Family Medicine
DX: R10.32 Left lower quadrant pain (principal)
CPT/HCPCS: 76830; 76856

== ENCOUNTER → 2022-04-19 | Outpatient (CLI) | payer MEDICARE, MEDICAID, SELFPAY ==
[2022-04-19 15:12] LABS: Glucose, Dipstick Normal (Normal); Ketone-Dipstick Negative (Negative); Leukocyte Esterase-Dipstick 100 /ul (Negative); Nitrite-Dipstick Positive (Negative); Occult Blood-Urine 10 /ul (Negative); Protein-Dipstick Negative (Negative); Specific Gravity, Urine 1.015 (1.002-1.030); Urine Clarity Sl. Cloudy (Clear); Urine Urobilinogen 8 mg/dl (Normal)
[2022-04-19 15:17] LABS: Color, Urine SEE COMMENT BELOW (Yellow); Urine Bilirubin Dipstick 6 mg/dL (Negative)
== END | disposition home or self-care (01) ==
LOC: MTLAB 11:56
PROVIDERS: PCP Family Medicine; Referring Provider Family Medicine; Visit Provider Family Medicine
DX: R30.0 Dysuria (principal)
CPT/HCPCS: 81002; 87077; 87086; 87088; 87186

== ENCOUNTER → 2022-06-04 | Outpatient (CLI) | payer MEDICARE, MEDICAID, SELFPAY ==
[2022-06-04 07:44] LABS: Absolute Lymphocyte Count 2.84 X10^3/uL (0.83-4.51); Basophil# 0.04 X10^3/uL; Basophil% 0.7 % (0-1); Eosinophil# 0.17 X10^3/uL; Eosinophils% 3.1 % (0-5); Hemoglobin 14.5 g/dL (12.0-15.0); Lymphocyte # 2.84 X10^3/ul (0.83-4.51); Lymphocyte % 51.1 % (19-41); Mean Corpuscular Hgb 34.1 pg (27.0-32.0); Mean Corpuscular Volume 103.5 fL (81-99); Monocyte# 0.49 X10^3/uL; Monocyte% 8.8 % (0-10); NRBC Flagged by Analyzer 0 % (0-5); Neutrophil # 2.01 X10^3/uL (2.7-7.7); Neutrophil % 36.1 % (47-70); Platelet Count 227 K/mm3 (150-450); RBC Distribution Width CV 13.5 % (11.6-14.6); RBC Distribution Width SD 52.1 fl (35.1-43.9); Red Blood Count 4.25 M/mm3 (4.2-5.4); White Blood Count 5.6 K/mm3 (4.4-11.0)
[2022-06-04 08:23] LABS: ALB/GLOB Ratio 1.2 RATIO (0.9-2.4); AST(SGOT) 14 U/L (15-37); Alanine Aminotransfer ALT/SGPT 14 U/L (13-56); Albumin, Serum 3.8 g/dL (3.2-5.0); Alkaline Phosphatase 89 U/L (45-117); Anion Gap 5 (5-15); BUN 13 mg/dL (7-18); Calcium,Total 9.4 mg/dL (8.5-10.1); Chloride 112 mmol/L (98-107); Cholesterol 247 mg/dL (200); Creatinine, Serum 0.68 mg/dL (0.55-1.02); EST Glomerular Filtration Rate 91 mL/min (>60); Est Glom Filt Rate - Afr Amer 110 mL/min (>60); Globulin 3.2 g/dL (2.2-4.2); Glucose 103 mg/dL (74-106); High Density Lipoprotein 76 mg/dL; Potassium 3.9 mmol/L (3.5-5.1); Sodium Level 145 mmol/L (136-145); Triglycerides 90 mg/dL; Very Low Density Lipoprotein 18 mg/dL (5-40)
--- NOTE | 2022-06-04 15:02 | BI_ITS ---
MAMMOGRAPHY - BILATERAL SCREENING REASON FOR EXAM: Female, 66 years old. Routine annual screening examination. PERTINENT HISTORY: Non-contributory. Remote left excisional breast biopsy. TECHNIQUE: Digital bilateral breast lucinda (3D mammographic acquisition) in the CC and MLO projections. 2-D mediolateral oblique (MLO) and craniocaudad (CC) views of both breasts were obtained. CAD: Full Field Digital Mammography with Computer Added Detection was performed. COMPARISON: Comparison is made with prior study dated 02/14/2021 and 06/26/2019. FINDINGS: Breast Composition: The breasts are heterogeneously dense, which may obscure small masses. There are no dominant masses or suspicious calcifications. Stable small benign-appearing bilateral axillary lymph nodes. No other significant abnormalities are identified. There has been no significant change since the prior study. BI/SCRN MAMM (CAD)W/LUCINDA BILAT IMPRESSION: Stable bilateral screening mammogram. Yearly follow-up mammogram recommended. (A) ASSESSMENT CATEGORY: BIRADS Category 2: Benign. A letter regarding these results will be sent to the patient by the facility within 30 days. Approximately 10% of breast cancers are not detected by mammography. A normal mammogram should not delay biopsy of a clinically suspicious abnormality. [id number] Electronically Signed: Dimitri Ordonez MD at 8:17 EST ,
== END | disposition home or self-care (01) ==
LOC: OPBI 15:01
PROVIDERS: PCP Family Medicine; Referring Provider Family Medicine; Visit Provider Family Medicine
DX: Z12.31 Encounter for screening mammogram for malignant neoplasm of breast (principal); I10 Essential (primary) hypertension; K21.9 Gastro-esophageal reflux disease without esophagitis
CPT/HCPCS: 36415; 77063; 77067; 80053; 80061; 85025

== ENCOUNTER → 2022-06-05 | Outpatient (CLI) | payer MEDICARE, MEDICAID, SELFPAY | END | disposition home or self-care (01) | LOC: LABSPEC 15:38 | PROVIDERS: PCP Family Medicine; Visit Provider Family Medicine | DX: N39.0 Urinary tract infection, site not specified (principal) | CPT/HCPCS: 87077; 87086; 87088; 87186 ==

== ENCOUNTER → 2022-08-01 | Outpatient (CLI) | payer MEDICARE, MEDICAID, SELFPAY ==
--- NOTE | 2022-08-01 12:41 | RAD_ITS ---
STUDY: X-RAY CHEST REASON FOR EXAM: Female, 66 years old. COUGH TECHNIQUE: XR Chest 2 Views COMPARISON: 7.1 FINDINGS: There is atherosclerotic calcification of the aortic arch with tortuosity. There are diffuse degenerative changes of the visualized thoracic spine. There is degenerative osteoarthritis of the bilateral shoulders. There is no demonstrated pleural abnormality. Normal size heart. Normal mediastinum and cata. Normal visualized pulmonary arteries. There is no demonstrated abnormality of the visualized soft tissue structures of the upper abdomen. RAD/Chest PA and Lateral IMPRESSION: There are no acute findings. Electronically Signed: Kip Odell MD at 17:44 EST ,
[2022-08-01 15:24] LABS: Absolute Lymphocyte Count 2.14 X10^3/uL (0.83-4.51); Absolute Neutrophil Count 3.1 X10^3/uL (2.0-7.7); Basophil# 0.03 X10^3/uL; Basophil% 0.5 % (0-1); Eosinophil# 0.19 X10^3/uL; Eosinophils% 3.2 % (0-5); Hemoglobin 15.2 g/dL (12.0-15.0); Lymphocyte # 2.14 X10^3/ul (0.83-4.51); Lymphocyte % 35.7 % (19-41); Mean Corpuscular Hgb 33.2 pg (27.0-32.0); Mean Corpuscular Volume 100.4 fL (81-99); Mean Platelet Vol. 10.7 fl (6.2-12.0); Monocyte# 0.52 X10^3/uL; Monocyte% 8.7 % (0-10); NRBC Flagged by Analyzer 0.3 % (0-5); Neutrophil # 3.11 X10^3/uL (2.7-7.7); Neutrophil % 51.7 % (47-70); Platelet Count 277 K/mm3 (150-450); RBC Distribution Width CV 12.9 % (11.6-14.6); RBC Distribution Width SD 48.1 fl (35.1-43.9); Red Blood Count 4.58 M/mm3 (4.2-5.4)
[2022-08-01 15:29] LABS: Anion Gap 6 (5-15); BUN 10 mg/dL (7-18); Chloride 111 mmol/L (98-107); Creatinine, Serum 0.77 mg/dL (0.55-1.02); EST Glomerular Filtration Rate 79 mL/min (>60); Est Glom Filt Rate - Afr Amer 95 mL/min (>60); Glucose 115 mg/dL (74-106); Potassium 3.8 mmol/L (3.5-5.1); Sodium Level 145 mmol/L (136-145)
== END | disposition home or self-care (01) ==
PROVIDERS: PCP Family Medicine; Referring Provider Family Medicine; Visit Provider Family Medicine
DX: U07.1 COVID-19 (principal); R05.9 Cough, unspecified
CPT/HCPCS: 36415; 71046; 80048; 85025

== ENCOUNTER 2022-08-02 06:38 | Emergency (ER) | payer MEDICARE, MEDICAID, SELFPAY ==
[2022-08-02 06:39] VITALS: BP 141/81; PULSE 80; RESP 18; TEMP 36.8; O2SAT 92; BMI 25.1
--- NOTE | 2022-08-02 07:09 | CT_ITS ---
STUDY: CT ABDOMEN AND PELVIS WITHOUT CONTRAST REASON FOR EXAM: Female, 66 years old. abd pain -- lower abd pain, diarrhea +COVID X1 WEEK NAUSEA,INCREASED WEAKNESS RADIATION DOSAGE (If Supplied By Facility): CTDIvol = ( 6.63 ) mGy, DLP = ( 308.20 ) mGycm TECHNIQUE: Transaxial images were obtained from the dome of the diaphragm to the symphysis pubis without oral contrast, and without intravenous contrast. Sagittal and coronal images were reconstructed. Individualized dose optimization techniques were used for this CT. COMPARISON: CT of abdomen and pelvis dated August 06, 2019 FINDINGS: The visualized lung bases are unremarkable. Normal liver. No intrahepatic biliary duct dilatation or liver mass. Slightly distended gallbladder containing a 1.81 cm stone. No visualized pericholecystic fluid or inflammatory stranding. Normal spleen. Normal pancreas. Normal bilateral adrenal glands. Several small cysts of the right kidney is stable when compared to the prior study. Normal left kidney. No hydronephrosis or renal masses. No visualized radiopaque stones. Normal visualized stomach. Normal small intestine. Normal colon. No bowel dilatation or obstruction. No free air or free fluid. The appendix is visualized and appears normal. Normal abdominal aorta. Normal inferior vena cava. Normal retroperitoneum. Normal urinary bladder. Unremarkable uterus and adnexa. Intravaginal pessary noted. Normal abdominal wall. There are diffuse degenerative changes of the visualized lumbar spine. Stable lumbar spine hardware and chronic postoperative changes. CT/Abdomen/Pelvis without Cont IMPRESSION: 1. Slightly distended gallbladder containing a 1.81 cm stone. No visualized pericholecystic fluid or inflammatory stranding. Electronically Signed: Rob Lara MD at 8:17 EST ,
--- NOTE | 2022-08-02 07:09 | EKG12_ITS ---
Test Reason : GENERAL Blood Pressure : / mmHG Vent. Rate : 072 BPM Atrial Rate : 072 BPM P-R Int : 190 ms QRS Dur : 070 ms QT Int : 358 ms P-R-T Axes : 060 012 072 degrees QTc Int : 392 ms Normal sinus rhythm Normal ECG Confirmed by BOYD HIGGINS MD ([id number]), supervising film or videotape editor LEYLA MANCIA ([id number]) on 08/06/2022 10:30:40 AM Also confirmed by BOYD HIGGINS MD ([id number]), supervising film or videotape editor LEYLA MANCIA ([id number]) on 08/06/2022 10:31 :14 AM Referred By: Confirmed By:VA HIGGINS MD
--- NOTE | 2022-08-02 07:11 | EDS_ITS ---
HPI History of Present Illness Chief Complaint: General Illness Informant: patient Narrative Narrative: Presents by EMS from home. Positive COVID diagnosis 8 days ago symptomatic for the past 11 days. Denies sick contacts. [place] flulike symptoms with sinus conge stion and was told to test by her PCP. Since then increasing fatigue decreased appetite. Diarrhea over the past 3 days nonbloody. Currently nauseated. Productive cough for 3 days. Headaches however no fevers. COVID vaccinated no boosters this was her first infection. History of asthma denies wheezing. Reported outpatient labs and x-ray by PCP yesterday. Today worsening fatigue therefore came to the ED. Denies urinary symptoms. Denies chest pains but noting lower abdominal discomfort for the past 3 days with her diarrhea. Denies history of diverticulitis. Exploratory laparotomy 1980 fever reporting no resections. Prior similar symptoms: No PFSH PFSH Medical History Anxiety and depression Arthritis Asthma Back pain child Concussion Contusion of hand Contusion of right shoulder region Depression Difficulty balancing Dizziness Fall GERD (gastroesophageal reflux disease) Hay fever Hypoglycemia IBS (irritable bowel syndrome) Incontinence Knee pain Low calcium levels Melanoma Osteopenia Home Medications lansoprazole 30 mg capsule,delayed release 30 mg PO DAILY Gerd 02/06/14 [History Last Taken 08/04/19 08:00 30 mg] montelukast 10 mg tablet 10 mg PO DAILY asthma 02/06/14 [History Last Taken 08/04/19 08:00 10 mg] sumatriptan succinate 100 mg tablet 100 mg PO .X1 PRN migraines 02/06/14 [History Last Taken 08/05/19 12:00 100 mg] ascorbic acid (vitamin C) 1,000 mg tablet 1,000 mg PO DAILY 07/31/17 [History Last Taken Unknown] cholecalciferol (vitamin D3) 25 mcg (1,000 unit) capsule (Vitamin D3) 400 unit PO DAILY 07/31/17 [History Last Taken Unknown] docusate sodium 50 mg capsule (Stool Softener) 100 mg PO 4X/DAY stool softner 07/31/17 [History Last Taken Unknown] garlic 1 tab PO BID 07/31/17 [History Last Taken Unknown] vitamin A 2,400 mcg capsule 10,000 unit PO QDAY 07/31/17 [History Last Taken Unknown] vitamin E 200 unit capsule 400 unit PO QDAY 07/31/17 [History Last Taken Unknown] alendronate 70 mg tablet 70 mg PO BONILLA Osteopennia 05/28/18 [History Last Taken 08/02/19 08:00 70 mg] apple cider vinegar 300 mg tablet 450 mg PO DAILY 05/28/18 [History Last Taken Unknown] calcium carbonate 600 mg calcium (1,500 mg) tablet 600 mg PO DAILY 05/28/18 [History Last Taken Unknown] cinnamon bark 500 mg capsule 1,000 mg PO BID 05/28/18 [History Last Taken Unknown] magnesium 250 mg tablet 250 mg PO TID 05/28/18 [History Last Taken Unknown] omega-3 fatty acids-fish oil 300 mg-1,000 mg capsule 1 ea PO DAILY 05/28/18 [History Last Taken 05/27/18] turmeric root extract 500 mg capsule 1,000 mg PO BID 05/28/18 [History Last Taken 05/26/18] melatonin 5 mg capsule 5 mg PO DAILY 10/03/19 [History Last Taken Unknown] amlodipine 10 mg tablet 10 mg PO DAILY #30 tabs 05/17/21 [Rx Last Taken Unknown] meclizine 12.5 mg tablet 12.5 mg PO TID PRN PRN dizziness #90 tabs 05/17/21 [Rx Last Taken Unknown] gabapentin 100 mg capsule 200 mg PO TID tingling 12/13/21 [History Last Taken Unknown] venlafaxine 75 mg tablet 75 mg PO DAILY Depression 12/13/21 [History Last Taken Unknown] white willow bark PO 12/13/21 [History Last Taken Unknown] Allergy/AdvReac Type Severity Reaction Status Date / Time house dust Allergy Intermediate Other Verified 08/02/22 06:42 tree and shrub pollen Allergy Intermediate Other Verified 08/02/22 06:42 chocolate flavor Allergy Unknown Verified 08/02/22 06:42 cosmetic Allergy NEEDS Verified 08/02/22 06:42 FOLLOW-UP fexofenadine [From Ariadna] Allergy Unknown Verified 08/02/22 06:42 nut - unspecified Allergy NEEDS Verified 08/02/22 06:42 FOLLOW-UP pineapple Allergy Unknown Verified 08/02/22 06:42 amoxicillin [Amoxicillin] AdvReac Other Verified 08/02/22 06:42 avocado AdvReac UNKNOWN Verified 08/02/22 06:42 bupropion HCl AdvReac Other Verified 08/02/22 06:42 [From Wellbutrin] egg AdvReac Other Verified 08/02/22 06:42 morphine AdvReac Itching Verified 08/02/22 06:42 Family History Other Asthma Colon cancer Surgical History Hx of knee surgery S/P breast lumpectomy Social History household members: none current occupational status: retired and disabled Smoking Status: Never smoker alcohol intake: never substance use type: does not use what type of physical activity do you participate in: walking and bicycling frequency: 1-2 times per week seatbelt use: always do you feel safe at home: Yes additional social history: single ROS ROS ED Constitutional Constitutional ED: Denies chills, fever(s) or sweats Eyes Eyes: Denies change in vision ENT ENT ED: Denies dysphagia or sore throat Cardiovascular Cardiovascular: Denies chest pain, leg edema, palpitations or racing heartbeat Respiratory/Chest Respiratory/Chest: Reports cough; Denies dyspnea or dyspnea on exertion Gastrointestinal Gastrointestinal: Reports abdominal pain and nausea; Denies diarrhea or vomiting Genitourinary Genitourinary ED: Denies dysuria, hematuria or urinary frequency Musculoskeletal Musculoskeletal: Denies back pain, extremity pain or neck pain Integumentary Denies rash or wounds Neurologic Neurologic: Reports weakness; Denies headache(s) or paresthesias EXAM Physical Exam Const Vital Signs: 08/02/22 06:39 08/02/22 06:42 08/02/22 12:09 Temperature 98.2 F Temperature Source Oral Pulse Rate 80 84 Respiratory Rate 18 16 Respiratory Pattern Normal Blood Pressure 141/81 H 126/69 H Blood Pressure Mean 101 Pulse Ox 92 96 Oxygen Delivery Method Room Air Positive well nourished and well developed General Appearance ED: well developed and NAD HEENT Reports dry mucous membranes normocephalic and atraumatic Mouth ED: Yes dry mucous membranes Mouth: dry mucous membranes Eyes PERRL, EOMs intact bilaterally and conjunctivae normal General Eye ED: Yes normal appearance of both eyes Neck no lymphadenopathy and supple General: Negative for tenderness Chest Wall Chest: Negative for tenderness Resp normal respiratory effort and normal air movement Effort and Inspection: symmetric chest movement; Negative for respiratory distress Cardio regular rate, regular rhythm and no murmurs Peripheral Pulses: pulses 2+ throughout GI normal to inspection, nondistended, normoactive bowel sounds GI Narrative: Tender palpation suprapubic left lower quadrant Palpation: Negative for guarding or rebound tenderness present Back/Spine no CVA tenderness and no thoracic nor lumbar tenderness Extremity normal to inspection General Extremety ED: Negative for edema or tenderness General Extremity: Negative for edema Neuro oriented x3, CN's II-XII intact bilaterally and no sensory deficits noted Sensorium / Orientation: awake and alert Skin no rashes or lesions noted and no wounds MDM MDM MDM Narrative Medical decision making narrative: Differential includes her diagnosis COVID-19 infection causing fatigue. With her lower abdominal pain diarrhea rule out diverticulitis. Concern for potential metabolic fatigue with her decreased oral intake and diarrhea. Patient noted to have a chest x-ray in the system yesterday was normal. Basic laboratory work was stable. Patient denies any wheezing therefore less likely asthma exacerbation. EMS report was reviewed, consistent with patient's history and symptoms. Reported dyspnea however pulse ox 9698% per EMS on room air. Will check laboratory studies, will obtain CT abdomen pelvis without contrast due to her pains. Patient be treated with IV fluids and antiemetics. Will reevaluate. 0930: Labs stable except for slight hyponatremia potassium 3.3. CT scan report noting slight distended gallbladder with a 1.8 cm stone. White count is normal liver enzymes are normal. On reevaluation she had pain in the right upper quadrant therefore ultrasound will be obtained of the gallbladder. 1200: Gallbladder ultrasound cholelithiasis with no cholecystitis. Normal common bile duct. Able to orally take down potassium. She is ambulated little unsteady per nursing her pulse ox stable. Patient lives at home alone. I had case management discussed with the patient. She declined any rehab at this time. Discussed with patient continue oral fluids. She will follow-up with her PCP. Discussed likely residual effects from her COVID symptoms. Return precaution discussed. All questions were answered. Lab Data Attestation: I reviewed the patient's lab results. Labs: Laboratory Results - last 24 hr 08/02/22 08/02/22 07:22 07:22 WBC 5.2 RBC 4.39 Hgb 14.5 Hct 43.2 MCV 98.4 MCH 33.0 H MCHC 33.6 RDW Std Deviation 45.7 H RDW Coeff of Roopa 12.6 Plt Count 253 MPV 10.2 Immature Gran % (Auto) 0.200 Neut % (Auto) 47.9 Lymph % (Auto) 37.4 [place] % (Auto) 10.3 H Eos % (Auto) 3.8 Baso % (Auto) 0.4 Absolute Neuts (auto) 2.5 Absolute Lymphs (auto) 1.96 Nucleated RBC % 0 Sodium 144 Potassium 3.3 L Chloride 114 H Carbon Dioxide 24.0 Anion Gap 6 BUN 11 Creatinine 0.66 Estim Creat Clear Calc 42.59 Est GFR (MDRD) Af Amer 114 Est GFR (MDRD) Non-Af 95 BUN/Creatinine Ratio 16.7 Glucose 118 H Calcium 9.4 Magnesium 2.0 Total Bilirubin 0.40 AST 16 ALT 21 Alkaline Phosphatase 74 Total Protein 7.1 Albumin 3.6 Globulin 3.5 Albumin/Globulin Ratio 1.0 Radiography Diagnostic Testing: Clinical Impression(s) from Imaging Studies Abdomen/Pelvis CT 08/02/22 07:09 IMPRESSION: 1. Slightly distended gallbladder containing a 1.81 cm stone. No visualized pericholecystic fluid or inflammatory stranding. Electronically Signed: Rob Lara MD at 8:17 EST Reading Location ID and State: [facility] / [place] , Service support , Gallbladder Ultrasound 08/02/22 09:19 IMPRESSION: Cholelithiasis - A few mobile gallstones, with the largest stone measuring 3.4 cm in diameter. Electronically Signed: Rob Lara MD at 10:45 EST , EKG Initial EKG: Attestation: I personally reviewed and interpreted this EKG as follows: Comments: Sinus rate of 72, no ST or T wave changes QTC 392. Discharge Plan Triage Chief Complaint: General Illness ED Provider: Todd Mooney Dx/Rx/DC Orders Clinical Impression: COVID-19, Diarrhea, Acute hypokalemia, Abdominal pain, Cholelithiasis, Weakness Instructions: Abdominal Pain, Coronavirus Disease 2019 (COVID-19): Caring for Yourself or Others, Gallstones Dc Prescriptions: No Action vitamin A 8,000 unit capsule 10,000 unit PO QDAY ascorbic acid (vitamin C) 1,000 mg tablet 1,000 mg PO DAILY cholecalciferol (vitamin D3) [Vitamin D3] 1,000 unit capsule 400 unit PO DAILY vitamin E 200 unit capsule 400 unit PO QDAY garlic tablet tablet 1 tab PO BID docusate sodium [Stool Softener] 50 mg capsule 100 mg PO 4X/DAY white willow bark PO sumatriptan succinate 100 MG tablet 100 mg PO .X1 PRN lansoprazole 30 MG capsule 30 mg PO DAILY montelukast 10 MG tablet 10 mg PO DAILY venlafaxine 75 mg tablet 75 mg PO DAILY Rx Instructions: 75mg q am, 37.5mg q afternoon alendronate 70 MG tablet 70 mg PO BONILLA calcium carbonate 600 MG tablet 600 mg PO DAILY magnesium 250 MG tablet 250 mg PO TID cinnamon bark 500 MG capsule 1,000 mg PO BID omega-3 fatty acids-fish oil 1 EACH capsule 1 ea PO DAILY apple cider vinegar 300 MG tablet 450 mg PO DAILY turmeric root extract 500 MG capsule 1,000 mg PO BID gabapentin 100 mg capsule 200 mg PO TID Label Comments: TAKE 1 CAPSULE BY MOUTH THREE TIMES DAILY melatonin 5 MG capsule 5 mg PO DAILY amlodipine 10 mg Tablet 10 mg PO DAILY Qty: 30 0RF meclizine 12.5 mg Tablet 12.5 mg PO TID PRN PRN (Reason: dizziness) Qty: 90 0RF Primary Care Provider: Glory Deal Referrals: Glory Deal MD [Primary Care Provider] - 3-5 Days if not improving Activity Restrictions/Additional Instructions: CT abdomen pelvis no colitis. Potassium 3.3 on labs. Gallstones noted on CT confirmed with ultrasound with no signs of cholecystitis. Continue oral fluids for hydration. Follow-up with your doctor. Case management discussed with you in the emergency department. Return if any worsening symptoms. Disposition Disposition: Home, Self Care Discharge Date/Time: 08/02/22 12:10
[2022-08-02] MEDS: 0.9% Normal Saline 1,000 ML 1000 ML IV (07:38)
[2022-08-02] MEDS: Ondansetron 4 MG/2 ML Vial IV (07:38)
[2022-08-02 07:44] LABS: Absolute Lymphocyte Count 1.96 X10^3/uL (0.83-4.51); Absolute Neutrophil Count 2.5 X10^3/uL (2.0-7.7); Basophil# 0.02 X10^3/uL; Basophil% 0.4 % (0-1); Eosinophils% 3.8 % (0-5); Hematocrit 43.2 % (37-47); Hemoglobin 14.5 g/dL (12.0-15.0); Lymphocyte # 1.96 X10^3/ul (0.83-4.51); Lymphocyte % 37.4 % (19-41); Mean Corp Hgb Conc 33.6 g/dL (32-36); Mean Corpuscular Volume 98.4 fL (81-99); Mean Platelet Vol. 10.2 fl (6.2-12.0); Monocyte# 0.54 X10^3/uL; Monocyte% 10.3 % (0-10); NRBC Flagged by Analyzer 0 % (0-5); Neutrophil # 2.51 X10^3/uL (2.7-7.7); Neutrophil % 47.9 % (47-70); Platelet Count 253 K/mm3 (150-450); RBC Distribution Width CV 12.6 % (11.6-14.6); RBC Distribution Width SD 45.7 fl (35.1-43.9); Red Blood Count 4.39 M/mm3 (4.2-5.4); White Blood Count 5.2 K/mm3 (4.4-11.0)
[2022-08-02 07:57] LABS: AST(SGOT) 16 U/L (15-37); Alanine Aminotransfer ALT/SGPT 21 U/L (13-56); Albumin, Serum 3.6 g/dL (3.2-5.0); Alkaline Phosphatase 74 U/L (45-117); Anion Gap 6 (5-15); BUN 11 mg/dL (7-18); BUN/Creat Ratio 16.7 RATIO (10-20); Calcium,Total 9.4 mg/dL (8.5-10.1); Chloride 114 mmol/L (98-107); Creatinine, Serum 0.66 mg/dL (0.55-1.02); EST Glomerular Filtration Rate 95 mL/min (>60); Est Glom Filt Rate - Afr Amer 114 mL/min (>60); Estimated Creatinine Clearance 42.59 ml/min; Globulin 3.5 g/dL (2.2-4.2); Glucose 118 mg/dL (74-106); Potassium 3.3 mmol/L (3.5-5.1); Protein, Total 7.1 g/dL (6.4-8.2); Sodium Level 144 mmol/L (136-145)
--- NOTE | 2022-08-02 09:19 | US_ITS ---
STUDY: ABDOMINAL ULTRASOUND - RIGHT UPPER QUADRANT REASON FOR VISIT: Female, 66 years old pain -- gallstone TECHNIQUE: Ultrasound evaluation of the right upper quadrant was performed with real-time and static sewell-scale imaging. TECHNICAL QUALITY: Adequate. COMPARISON: CT of abdomen and pelvis dated August 02, 2022 FINDINGS: Liver: The liver measures 10.2 cm. There is normal echogenicity of the liver. The bile ducts are within normal limits. There is hepatic color flow. The direction of portal flow is hepatopetal. There is no demonstrated mass lesion. Gallbladder: Normal distended gallbladder. The gallbladder wall measures 1.8 mm. There is a negative sonographic Camejo''s sign. There is no pericholecystic fluid. A few mobile gallstones are present. The largest stone measures 3.4 cm in diameter. Common Bile Duct (C.B.D.): The common bile duct measures 4.0 mm. Pancreas: Normal size of the head, body and tail of the pancreas. There is normal echogenicity of the pancreas. There is no demonstrated pancreatic mass or cyst. Right Kidney: Normal size of the right kidney. The right kidney measures 10.0 x 4.4 x 4.6 cm. Normal renal cortex. The right cortex measures 1.2 cm. There is no demonstrated renal mass. Redemonstration of several small cysts of the right kidney of no clinical significance. The largest cyst is 3.1 cm in diameter. There is no right hydronephrosis. US/Gallbladder IMPRESSION: Cholelithiasis - A few mobile gallstones, with the largest stone measuring 3.4 cm in diameter. Electronically Signed: Rob Lara MD at 10:45 EST ,
[2022-08-02 10:20] VITALS: O2SAT 95
[2022-08-02] MEDS: Potassium Chloride Oral Tablet 20 MEQ 40 MEQ PO (10:43)
[2022-08-02] MEDS: Dicyclomine 10 MG Capsule 20 MG PO (11:34)
--- NOTE | 2022-08-02 11:57 | CM.ED ---
ISIDRO Note Referral Source: MD Mooney Referral Reason: placement options/resources. MD Mooney met with ISIDRO and informed SW patient was interested in exploring alternative living options as she does not meet medical criteria to be admitted but is not feeling well and isn't sure about caring for herself at home. SW met with patient and introduced herself and role as [facility] Filling Room Operator. SW inquired about patient's current living arrangements and thoughts about discharge. Patient was laying in bed but alert. Patient stated she lives home alone and wants someone to stay with her 18/02. SW explained that is not a service her insurance would cover and inquired about patient's interest in assisted living facilities or home health care options. Patient stated she could not afford to go to assisted living and wasn't interested in home health at this time. SW discussed [facility] as a resource to assist patient further with discussing appropriate care options. Patient explained she just wanted to lay in bed and didn't want to call but was receptive towards accepting information and would call on a day she had more energy. No other needs voiced at this time, SW remains available if needs arise. ISIDRO met with MD Mooney and informed him of the resources provided to patient. PABLO Jaramillo updated regarding resources given. Plan: D/C home, resources provided for [facility] as well as a list of local assisted living facilities and contact information. Sondra Rosa MSW, P[place]ELOPE
[2022-08-02 12:09] VITALS: BP 126/69; PULSE 84; RESP 16; O2SAT 96
== END 2022-08-02 12:10 | disposition home or self-care (01) ==
PROVIDERS: Emergency Provider Emergency Medicine; PCP Family Medicine; Visit Provider Emergency Medicine
DX: U07.1 COVID-19 (principal); E87.6 Hypokalemia; K80.20 Calculus of gallbladder without cholecystitis without obstruction; R53.1 Weakness; R10.9 Unspecified abdominal pain; J45.909 Unspecified asthma, uncomplicated
CPT/HCPCS: 74176; 76705; 80053; 83735; 85025; 93005; 96361; 96374; 99285; J7030; A4216; J2405

== ENCOUNTER → 2022-09-08 | Outpatient (CLI) | payer MEDICARE, MEDICAID, SELFPAY ==
[2022-09-08 13:44] LABS: Mucous, Urine 0 SEEN /hpf (<or=2+)
[2022-09-08 13:54] LABS: Color, Urine Orange (Yellow); Glucose, Dipstick Normal (Normal); Ketone-Dipstick Negative (Negative); Leukocyte Esterase-Dipstick 500 /ul (Negative); Nitrite-Dipstick Positive (Negative); Occult Blood-Urine 10 /ul (Negative); Protein-Dipstick 30 mg/dl (Negative); Specific Gravity, Urine 1.015 (1.002-1.030); Urine Clarity Sl. Cloudy (Clear); Urine Urobilinogen 4 mg/dl (Normal)
[2022-09-08 13:58] LABS: Urine Bilirubin Dipstick 3 mg/dL (Negative)
[2022-09-08 14:00] LABS: Red Blood Cells-Urine 0-5 SEEN /hpf (0-5); White Blood Cells >100 SEEN /hpf (0-5)
[2022-09-08 14:02] LABS: Bacteria 1+ /hpf (None Seen); Squamous Epithelial Cells - UA 0-5 SEEN /hpf (5-10)
== END | disposition home or self-care (01) ==
PROVIDERS: PCP Family Medicine; Visit Provider Physician Assistant Surgical
DX: R30.0 Dysuria (principal)
CPT/HCPCS: 81001; 87086

== ENCOUNTER → 2022-09-18 | Outpatient (CLI) | payer MEDICARE, MEDICAID, SELFPAY ==
--- NOTE | 2022-09-18 16:24 | US_ITS ---
STUDY: RENAL ULTRASOUND - COMPLETE REASON FOR EXAM: Female, 67 years old. UTI TECHNIQUE: Ultrasound evaluation of the kidneys was performed with real-time and static vargas-scale imaging. COMPARISON: Renal ultrasound September 11, 2016. FINDINGS: RIGHT KIDNEY: Normal location of the right kidney, which is normal in size. The right kidney measures 10.5 cm. There is a normal cortex of the right kidney. The renal cortex measures 1.1 cm. Multiple simple cysts the largest measuring 2.8 cm. There are no right renal calculi. There is no right hydronephrosis. DISTAL RIGHT URETER: There is non-visualization of the distal right ureter. There is no demonstrated right ureterovesical junction calculus. There is a visualized right ureteral jet. LEFT KIDNEY: Normal location of the left kidney, which is normal in size. The left kidney measures 9.9 cm. There is a normal cortex of the left kidney. The renal cortex measures 1.8 cm. There is no left renal mass or cyst. There are no left renal calculi. There is no left hydronephrosis. DISTAL LEFT URETER: There is non-visualization of the distal left ureter. There is no demonstrated left ureterovesical junction calculus. There is a visualized left ureteral jet. There is no demonstrated aneurysm.. I.V.C.: The IVC is patent. BLADDER: The distended urinary bladder has a volume of 172 ml. The empty urinary bladder has a volume of 6 ml. There is a normal wall thickness of the distended urinary bladder. There is no demonstrated mass within the urinary bladder. There are no demonstrated bladder calculi. US/Kidney and Bladder IMPRESSION: Multiple simple right renal cysts otherwise Normal ultrasound of the kidneys and urinary bladder. Electronically Signed: Mir Sarkar MD at 0:00 EST ,
== END | disposition home or self-care (01) ==
LOC: US 16:22
PROVIDERS: PCP Family Medicine; Visit Provider Urology
DX: N39.0 Urinary tract infection, site not specified (principal)
CPT/HCPCS: 76770

== ENCOUNTER → 2022-11-14 | Outpatient (CLI) | payer MEDICARE, MEDICAID, SELFPAY ==
--- NOTE | 2022-11-14 13:50 | CT_ITS ---
STUDY: CT PELVIS WITH CONTRAST REASON FOR EXAM: Female, 67 years old. Possible hernia. One month history of pain in the left groin. RADIATION DOSAGE (If Supplied By Facility): CTDIvol = ( 27.58 ) mGy, DLP = ( 914.34 ) mGycm TECHNIQUE: Transaxial imaging of the pelvis was performed without oral contrast. IV 100mL Isovue-300 was administered intravenously. Multiplanar coronal and sagittal images were reformatted. Individualized dose optimization techniques were used for this CT. COMPARISON: None. FINDINGS: Normal urinary bladder. Small bilateral renal cysts. Normal visualized small intestine. Large amount of fecal material is seen in the colon. There is no pelvic fluid. There is no pelvic lymphadenopathy or mass lesion. Normal visualized pelvic arteries. Normal abdominal wall. Small benign-appearing bilateral inguinal lymph nodes. Prior laminectomy and fusion at the L4-L5 level. CT/Pelvis WITH IV Contrast IMPRESSION: No evidence of hernia. Large amount of fecal material is seen in the colon. Small bilateral renal cysts. Electronically Signed: Dimitri Ordonez MD at 15:02 EDT ,
[2022-11-14 14:36] LABS: CREATININE FINGERSTICK < 0.9 mg/dL (0.55-1.02); EGFR FINGERSTICK > 60.0000 mL/min (>60)
== END | disposition home or self-care (01) ==
LOC: CT 13:48
PROVIDERS: PCP Family Medicine
DX: R10.32 Left lower quadrant pain (principal)
CPT/HCPCS: 72193; Q9967

== ENCOUNTER 2023-01-11 11:00 | Outpatient (RCR) | payer MEDICARE, MEDICAID, SELFPAY ==
--- NOTE | 2022-12-25 10:51 | HP.PTEVAL ---
Patient's Visit Information ALISHA AG is a 67 year old F referred to Physical Therapy by Dr. Glory Deal MD with a diagnosis of R hip ain and LBP. Date of Evaluation: 12/25/22 Physical Therapist: Estrada Amin, DPT, OCS, CSCS - Visit Plan Frequency: 2x /Week Duration: 4-6 Weeks Plan: 2x/week for 4-6 weeks (pt wishes to wait until after injection), psoas STM L and glut STM rollout B and LB gentle AROM, psoas stretch, NS strengthening of core. may do water or land depending on how she is feeling. Will call after injection to set up appointments. - Subjective I have been having a lot of pain. L anterior hip and R buttock and LB. Diagnosed with spinal stenosis. Approved for injection and will get that form Dr. Burrows and maybe get stimulator. Pain has been there for 5 months and is chronic. Not sure why it got worse. Was sick with covid. Had transforaminal procedure. Laminectomy and fusion 2 yrs ago. That did not help her pain at the time. Pain i back is 1/10 and worse in hips and posterior legs up to 10/10 with turning in bed, compfrotable at rest, 9/10 with walking 200+ feet. Uses wh walker for pain to keep from lurching due to pain in the hip. Does some regular arm weights, tries pelvic tilt. SKC, piriformis stretch, mat maarching, bugs sometimes. Lives alone in three story house with steps to apartment suing railing and can do the leaning forward. Basic aDLs are getting done but standing to cook gets painful. has piglets and cleaning them can be painful in LB. Not employed. Hobbies: plays computer and can do this sitting. Does [employer] choir sitting. No incontinence lately. - Pain hips and LB Pain Intensity (Out of 10): 2 Pain Intensity Range: 0, 9 Comment: worse walking and bed transitions - Objective Walks with wh walker mod I back to PT wincing in pain L anterior hip every now and then. Hard to walk without AD due to pain and lurchesd FW with sharp anterior hip pain. Trasnfers I chair. Bed mobility is I but painful with rotations. LB AROM: extension none and very painful anterior hip and LB to try, flexion is mod limited. SB are max limited and painful to L in back and hip. Hip aROM WFL except ext and symmetrical, hurts to extend passively B hips and barely to neutral. Knee and ankle aROM WFL. Sensation LE diminished to gross light touch r miller area. strength 4-/5 hips and knees and ankles except R DF 3+. Patient able to walk 250 feet today but relieved to sit down and hunches ove. r more as she goes. - SLR. - slump. Tightness in psoas B max and HS minimal. - Balance/Special Test Scores Lower Extremity Functional Score: 24 - Goals Goal 1:: stand up tall without pain in LB or hip Goal Time Frame: 4-6 Weeks Goal 2:: Pt feel 50% better in overall pain to 4/10 at worst and manageable Goal Time Frame: 4-6 Weeks Goal 3:: LEFS 44 Goal Time Frame: 4-6 Weeks Goal 4:: I management with HEP for stretching psoas, LB ROM and core strength Goal Time Frame: 4-6 Weeks Goal 5:: cook without increased back or hip pain. Goal Time Frame: 4-6 Weeks - Rehabilitation Potential Physical Therapy Diagnosis: Likely stenosis leading to symptoms and poor mobility Rehabilitation Potential: Questionable - Anticipated Interventions Patient/Client Instruction: Educate patient on: Condition, Plan of Care For the Purpose of:: To decrease pain, To improve nutrient delivery to tissue, To improve muscle performance and motor function, To increase tolerance to activity/condition/position Therapeutic Exercise to Include: Strength training, Flexibilty training, Gait and locomotor training, Passive ROM, Active ROM, Dynamic Lumbar Stabilization For the Purpose of:: To decrease pain, To increase ROM, To improve nutrient delivery to tissue, To improve muscle performance and motor function, To increase tolerance to activity/condition/position, To improve gait and locomotor functions Manual Therapy Techniques to Include: Mobilization, Soft tissue mobilization For the Purpose of:: To decrease pain, To increase ROM Thermo therapy (hot pack): Yes For the Purpose of:: To improve nutrient delivery to tissue Thank you for the opportunity to evaluate your patient. For Medicare and Medicare HMO plans, please review the plan of care and approve it. It will need to be FAXED BACK to us at [phone] for Medicare purposes. For Medicare only, by signing this I certify the plan of care. Please let me know if there are questions or concerns regarding this plan of care. Physician Signature: Date:
--- NOTE | 2023-03-08 13:48 | HP.PT.NRP ---
Patient Information Patient Information: ALISHA AG was seen in my office for initial evaluation on 12/25/22. The following Plan of Care was established for this patient: POC Established Initial Frequency: 2x /Week Initial Duration: 4-6 Weeks Anticipated Interventions Patient/Client Instruction: Educate patient on: Condition and Plan of Care For the Purpose of:: To decrease pain, To improve nutrient delivery to tissue, To improve muscle performance and motor function and To increase tolerance to activity/condition/position Therapeutic Exercise to Include: Strength training, Flexibilty training, Gait and locomotor training, Passive ROM, Active ROM and Dynamic Lumbar Stabilization For the Purpose of:: To decrease pain, To increase ROM, To improve nutrient delivery to tissue, To improve muscle performance and motor function, To increase tolerance to activity/condition/position and To improve gait and locomotor functions Manual Therapy Techniques to Include: Mobilization and Soft tissue mobilization For the Purpose of:: To decrease pain and To increase ROM Thermo therapy (hot pack): Yes For the Purpose of:: To improve nutrient delivery to tissue Last Seen Last Seen: This patient was last seen in our office 01/11/23. Pertinent comments regarding their Physical therapy will appear below: Pt seen 3 visits of POC and cancelled the rest stating she wanted to see doctor as she was not sure PT was helping. At this point, it has been over 6 weeks and I will discontinue due to nonattendance. At this point I will be discontinuing this patient from physical therapy. I would be happy to see this patient again in the future if found appropriate by the physician. Thank you! Estrada Amin, DPT, OCS, CSCS Balance/Gait/Functional tests Balance/Special Test Scores Lower Extremity Functional Score: 24
== END 2023-01-11 19:00 | disposition home or self-care (01) ==
LOC: PT 11:00
PROVIDERS: PCP Family Medicine; Referring Provider Family Medicine; Visit Provider Family Medicine
DX: M25.551 Pain in right hip (principal); M54.50 Low back pain, unspecified
CPT/HCPCS: 97113; 97162

== ENCOUNTER → 2023-02-13 | Outpatient (CLI) | payer MEDICARE, SELFPAY ==
--- NOTE | 2023-02-13 07:53 | MRI_ITS ---
STUDY: MRI LUMBAR SPINE WITHOUT CONTRAST REASON FOR EXAM: Female, 67 years old. LOSS OF BLADDER CONTROL TECHNIQUE: Standardized fat and water weighted pulse sequences were obtained in the sagittal and axial planes. COMPARISON: X-ray of the lumbar spine dated October 17, 2022 FINDINGS: There is straightening of the normal lumbar lordosis. There is a dextroscoliosis of the lumbar spine. Normal conus medullaris that terminates at the T12-L1 level. No marrow edema or fracture or compression deformity is present. No aggressive abnormalities are seen. Posterior spinal rods and pedicle screws spanning the L2-L5 levels with associated posterior decompressive defects. Moderate to severe disc space narrowing at T11-T12 with a large extruded focus of disc material anteriorly. Small simple cysts are present in both kidneys. The visualized aspects of the distal spinal cord and conus are within normal limits and without evidence of signal abnormality or syrinx formation. No aggressive lesions are seen in the osseous structures or distal spinal cord. T12-L1: Normal endplates. Normal disc height, hydration and morphology. Normal bilateral facet joints. Normal central canal and bilateral lateral recesses. Normal bilateral intervertebral neural foramina. L1-2: Moderate to severe disc space narrowing with a diffuse disc bulge.. Normal bilateral facet joints. Normal central canal and bilateral lateral recesses. Normal bilateral intervertebral neural foramina. L2-3: Posterior decompressive defect with posterior fusion rods and pedicle screws. Mild disc space narrowing with diffuse disc desiccation and diffuse disc bulging. Mild anterior endplate spurring. Mild facet joint hypertrophy. Normal central canal and bilateral lateral recesses. Normal bilateral intervertebral neural foramina. L3-4: Posterior decompressive defect with posterior fusion rods and pedicle screws. . Mild disc space narrowing with slight annular bulging and anterior endplate spurring. Slight anterolisthesis of no more than 2 mm. Mild facet joint hypertrophy. Normal central canal and bilateral lateral recesses. Normal bilateral intervertebral neural foramina. L4-5: Posterior decompressive defect with posterior fusion rods and pedicle screws. Moderate disc space narrowing with diffuse disc desiccation and diffuse disc bulging. Slight anterolisthesis of 2 mm. Mild to moderate facet joint hypertrophy, right greater than left. Mild to moderate right foraminal stenosis with nerve root impingement. Normal bilateral facet joints. Normal central canal and bilateral lateral recesses. L5-S1: Posterior fusion rods and pedicle screws. Normal endplates. Normal disc height, hydration and morphology. Mild facet joint hypertrophy. Normal central canal and bilateral lateral recesses. Normal bilateral intervertebral neural foramina. Normal visualized sacral ala. There is moderate paraspinal muscular atrophy. MRI/Spine Lumbar (Routine) IMPRESSION: 1. Multilevel degenerative changes, as described above. 2. No marrow edema or fracture or compression deformity is present. No aggressive abnormalities are seen. 3. Posterior spinal rods and pedicle screws spanning the L2-L5 levels with associated posterior decompressive defects. Moderate to severe disc space narrowing at T11-T12 with a large extruded focus of disc material anteriorly. Electronically Signed: Rob Lara MD at 12:47 EDT ,
== END | disposition home or self-care (01) ==
LOC: MRI 07:44
PROVIDERS: PCP Family Medicine; Visit Provider Anesthesiology Pain Medicine
DX: M96.1 Postlaminectomy syndrome, not elsewhere classified (principal)
CPT/HCPCS: 72148

== ENCOUNTER 2023-03-28 09:44 | Emergency (ER) | payer MEDICARE, MEDICAID, SELFPAY ==
[2023-03-28 09:45] VITALS: BP 128/87; PULSE 99; RESP 14; TEMP 36.1; O2SAT 97
[2023-03-28 09:51] VITALS: O2SAT 96
--- NOTE | 2023-03-28 10:11 | EDS_ITS ---
HPI HPI - Fall History of Present Illness Chief Complaint: Fall PFSH PFS Medical History Anxiety and depression Arthritis Asthma Back pain child Concussion Contusion of hand Contusion of right shoulder region Depression Difficulty balancing Dizziness Fall GERD (gastroesophageal reflux disease) Hay fever Hypoglycemia IBS (irritable bowel syndrome) Incontinence Knee pain Low calcium levels Melanoma Osteopenia Home Medications lansoprazole 30 mg capsule,delayed release 30 mg PO DAILY Gerd 02/06/14 [History Last Taken 08/04/19 08:00 30 mg] montelukast 10 mg tablet 10 mg PO DAILY asthma 02/06/14 [History Last Taken 08/04/19 08:00 10 mg] ascorbic acid (vitamin C) 1,000 mg tablet 1,000 mg PO DAILY 07/31/17 [History Last Taken Unknown] cholecalciferol (vitamin D3) 25 mcg (1,000 unit) capsule (Vitamin D3) 400 unit PO DAILY 07/31/17 [History Last Taken Unknown] docusate sodium 50 mg capsule (Stool Softener) 100 mg PO 4X/DAY stool softner 07/31/17 [History Last Taken Unknown] garlic 1 tab PO BID 07/31/17 [History Last Taken Unknown] vitamin A 2,400 mcg capsule 10,000 unit PO QDAY 07/31/17 [History Last Taken Unknown] vitamin E 200 unit capsule 400 unit PO QDAY 07/31/17 [History Last Taken Unknown] calcium carbonate 600 mg calcium (1,500 mg) tablet 600 mg PO DAILY 05/28/18 [History Last Taken Unknown] melatonin 5 mg capsule 5 mg PO DAILY 10/03/19 [History Last Taken Unknown] amlodipine 10 mg tablet 10 mg PO DAILY #30 tabs 05/17/21 [Rx Last Taken Unknown] gabapentin 100 mg capsule 200 mg PO TID tingling 12/13/21 [History Last Taken Unknown] venlafaxine 75 mg tablet 75 mg PO DAILY Depression 12/13/21 [History Last Taken Unknown] cetirizine 10 mg tablet 10 mg PO DAILY PRN 09/08/22 [History Last Taken Unknown] fluticasone propionate 220 mcg/actuation HFA aerosol inhaler (Flovent HFA) 1 puff inhalation BID 09/08/22 [History Last Taken Unknown] meloxicam 15 mg tablet 15 mg PO DAILY PRN pain #30 tabs 11/15/22 [Rx Last Taken Unknown] oxycodone 5 mg capsule 5 mg PO Q6H PRN pain 5 days #20 caps 03/28/23 [Rx Last Taken Unknown] Allergy/AdvReac Type Severity Reaction Status Date / Time house dust Allergy Intermediate Other Verified 03/28/23 09:44 tree and shrub pollen Allergy Intermediate Other Verified 03/28/23 09:44 chocolate flavor Allergy Unknown Verified 03/28/23 09:44 cosmetic Allergy NEEDS Verified 03/28/23 09:44 FOLLOW-UP fexofenadine [From Ariadna] Allergy Unknown Verified 03/28/23 09:44 nut - unspecified Allergy NEEDS Verified 03/28/23 09:44 FOLLOW-UP pineapple Allergy Unknown Verified 03/28/23 09:44 amoxicillin [Amoxicillin] AdvReac Other Verified 03/28/23 09:44 avocado AdvReac UNKNOWN Verified 03/28/23 09:44 bupropion HCl AdvReac Other Verified 03/28/23 09:44 [From Wellbutrin] egg AdvReac Other Verified 03/28/23 09:44 morphine AdvReac Itching Verified 03/28/23 09:44 Family History Other Asthma Colon cancer Surgical History Hx of knee surgery S/P breast lumpectomy Social History household members: none current occupational status: retired and disabled Smoking Status: Never smoker alcohol intake: never substance use type: does not use what type of physical activity do you participate in: walking and bicycling frequency: 1-2 times per week seatbelt use: always do you feel safe at home: Yes additional social history: single EXAM Physical Exam Const Vital Signs: 03/28/23 09:45 03/28/23 09:51 Temperature 97 F L Temperature Source Temporal Pulse Rate 99 Respiratory Rate 14 Respiratory Effort Normal Non-Labored Respiratory Depth Normal Respiratory Pattern Normal Blood Pressure 128/87 H Blood Pressure Mean 100 Pulse Ox 97 96 Oxygen Delivery Method Room Air Room Air MDM MDM MDM Narrative Medical decision making narrative: HISTORY OF PRESENT ILLNESS: 67-year-old female here for fall. Notes mechanical fall from standing prior to arrival. Denies syncope. Denies head trauma or loss of consciousness. States he has had back pain since her recent laminectomy revision surgery. States she has no bowel or bladder incontinence, no urinary retention, no focal numbness weakness in the legs. Does not use IV drugs have recent fever. She states when she fell she injured the right side of her abdomen. She denies any other symptoms such as hip pain, knee pain ankle pain. Patient notes acute on chronic abdominal pain. She states has been on for a very long time. States she thought her surgery of her back would help her abdominal pain. REVIEW OF SYSTEMS: Pertinent positives: Abdominal pain, back pain Pertinent negatives: Head trauma, loss of consciousness PHYSICAL EXAM: Nursing triage notes reviewed, Vital signs reviewed Constitutional: please see mdm HENT: MMM, no hemotympanum, no nasal septal hematoma, no intraoral lesions, no cephalhematoma, atraumatic normocephalic Eyes: Pupils equal round and reactive to light, Extraocular muscles intact Neck: No stridor, no JVD, full neck ROM, no midline C-spine tenderness Lungs: Clear to auscultation, No wheezing or rales. No increased work of breathing, no conversational dyspnea, no accessory muscle use, no nasal flaring. No respiratory distress noted, no flail chest, Heart: Regular rate and rhythm, No murmurs, No rubs and No gallops, 2+ distal pulses (radial, femoral, posterior tibial) in all extremities Abdomen: Soft, there is no tenderness, rigidity, rebound or guarding, no obvious peritoneal signs, no palpable pulsatile abdominal masses, no auscultated abdominal bruit : No CVAT, pelvis stable to compression. Back: TTP over lumbar spine over surgical incision site, no step-offs or deformities noted Extremities: No edema, no obvious extremity injuries, full range of motion Neuro: Intact sensation L1-S1 dermatomal distributions. Intact 5/5 strength in hip flexion (T12-L3). Knee extension (L2-L4). Ankle dorsiflexion (L4-L5). Ankle plantar flexion (S1). Great toe extension (L5). 2+ patellar and Achilles DTRs. Skin: Surgical site lumbar spine clean dry intact with no fluctuance induration purulence or pain. MEDICAL DECISION MAKING: Chief Complaint: Fall External records reviewed: MRI of the lumbar spine from February 13, 2023 shows multilevel degenerative changes in the following IMPRESSION: 1. Multilevel degenerative changes, as described above. 2. No marrow edema or fracture or compression deformity is present. No aggressive abnormalities are seen. 3. Posterior spinal rods and pedicle screws spanning the L2-L5 levels with associated posterior decompressive defects. Moderate to severe disc space narrowing at T11-T12 with a large extruded focus of disc material anteriorly. Factors affecting care: none hypertension, GERD, status post laminectomy Social determinants of health: none History obtained from others: none Consults: none ALL IMAGES (IF OBTAINED) HAVE BEEN PERSONALLY REVIEWED AND INTERPRETED BY MYSELF. MDM Narrative: Patient is hemodynamically stable, afebrile, nontoxic-appearing. I considered the following differential diagnosis: Lumbar spine abnormality, intra-abdominal abnormality, contusion to the back, postsurgical pain, muscle skeletal pain of the abdomen I obtained a CT scan lumbar spine, CT scan of the abdomen pelvis without any acute traumatic injuries. To give oxycodone here for pain control. CT scan was negative for acute traumatic injuries. Tertiary exam without new traumatic injuries. The patient is appropriate discharge home. Will give oral narcotic medicine. Had a shared decision-making discussion with the patient about risk of oral narcotic medicine include increased risk of falls. Patient states she t ook her narcotic care and felt well enough to take at home. Discussed taking before bedtime. Discussed follow-up with her surgeon doctor for further outpatient pain control. The patient and/or family, caregivers express understanding. The patient and/or family, caregivers agrees with the plan. Shared decision making: I will have a discussion with the patient and or visitors regarding risk/be nefits of further testing or admission. They will be made aware of of the risk/benefits inherent in this decision they will be given the opportunity to voice understanding. Total critical care time today provided was at least 0 minutes. This excludes separately billable procedures. Critical care time (if documented) is secondary to the patient having high probability of clinically significant/life threatening deterioration in the patient's condition which required my urgent intervention. Impression: Fall Back contusion Abdominal contusion Postoperative pain Disposition: Discharge home Radiography Diagnostic Testing: Clinical Impression(s) from Imaging Studies Abdomen/Pelvis CT 03/28/23 11:20 IMPRESSION: Distended gallbladder with multiple gallstones. Right renal cyst. Electronically Signed: Dimitri Ordonez MD at 11:54 EDT , Lumbar Spine CT 03/28/23 11:20 IMPRESSION: Status post multilevel laminectomy with intrapedicle screw and pancho fixation. No acute abnormality is seen. Multilevel disc space narrowing and spondylosis. Electronically Signed: Dimitri Ordonez MD at 12:11 EDT , Discharge Plan Triage Chief Complaint: Fall ED Provider: Jerel Dover Dx/Rx/DC Orders Clinical Impression: History of gallstones, Back contusion, Abdominal pain, Fall Instructions: Bruises (Contusions) Prescriptions: New oxycodone 5 mg capsule 5 mg PO Q6H PRN (Reason: pain) 5 Days Qty: 20 0RF No Action vitamin A 8,000 unit capsule 10,000 unit PO QDAY ascorbic acid (vitamin C) 1,000 mg tablet 1,000 mg PO DAILY cholecalciferol (vitamin D3) [Vitamin D3] 1,000 unit capsule 400 unit PO DAILY vitamin E 200 unit capsule 400 unit PO QDAY garlic tablet tablet 1 tab PO BID docusate sodium [Stool Softener] 50 mg capsule 100 mg PO 4X/DAY cetirizine 10 mg tablet 10 mg PO DAILY PRN fluticasone propionate [Flovent HFA] 220 mcg/actuation HFA aerosol inhaler 1 puff inhalation BID meloxicam 15 mg tablet 15 mg PO DAILY PRN (Reason: pain) Qty: 30 0RF Rx Instructions: Do not take in conjunction with other NSAIDs. Tylenol is okay. lansoprazole 30 MG capsule 30 mg PO DAILY montelukast 10 MG tablet 10 mg PO DAILY venlafaxine 75 mg tablet 75 mg PO DAILY Rx Instructions: 75mg q am, 37.5mg q afternoon calcium carbonate 600 MG tablet 600 mg PO DAILY gabapentin 100 mg capsule 200 mg PO TID Patient Comments: TAKE 1 CAPSULE BY MOUTH THREE TIMES DAILY melatonin 5 MG capsule 5 mg PO DAILY amlodipine 10 mg Tablet 10 mg PO DAILY Qty: 30 0RF Primary Care Provider: Glory Deal Referrals: Glory Deal MD [Primary Care Provider] - Activity Restrictions/Additional Instructions: Thank you for trusting us with your care today! Please take Tylenol (2 pills, 650 mg), ibuprofen (2 pills, 400 mg) every 6 hours as needed for pain and fever control. Please take oral oxycodone has been prescribed if the above regimen does not control your pain. Please return to the emergency department if your symptoms change or worsen. Specifically develop vomiting, cannot take pain medication by mouth, if you develop bowel or bladder incontinence, develop focal weakness or loss of sensation in your legs, if develop urinary retention or decree sensation around your private region Please follow with your primary care physician and surgeon for further outpatient evaluation and management. Disposition Disposition: Home, Self Care
[2023-03-28] MEDS: oxyCODONE 5 MG Tablet PO (11:15)
--- NOTE | 2023-03-28 11:20 | CT_ITS ---
STUDY: CT ABDOMEN AND PELVIS WITHOUT CONTRAST REASON FOR EXAM: Female, 67 years old. Lower abdominal pain after fall RADIATION DOSAGE (If Supplied By Facility): CTDIvol = ( 8.99 ) mGy, DLP = ( 757.46 ) mGycm TECHNIQUE: Transaxial images were obtained from the dome of the diaphragm to the symphysis pubis without oral contrast, and without intravenous contrast. Sagittal and coronal images were reconstructed. Individualized dose optimization techniques were used for this CT. COMPARISON: Comparison is made with prior study dated August 02, 2022. FINDINGS: The visualized lung bases are unremarkable. The visualized portions of the heart are within normal limits. Normal liver. Distended gallbladder. Multiple gallstones. Normal spleen. Normal pancreas. Normal bilateral adrenal glands. There is a 3.1 sign by 2.6 m cyst in the lateral posterior aspect of the right kidney. Normal left kidney. Normal visualized stomach. Normal small intestine. Normal colon. The appendix is visualized and appears normal. Normal abdominal aorta. Normal inferior vena cava. Normal retroperitoneum. Normal urinary bladder. Normal abdominal wall. There are diffuse degenerative changes of the visualized lumbar spine. The patient is status post laminectomy and interpedicular screw and pancho fixation at the L1-L2, L2-L3, L3-L4, and L4-L5 levels. CT/Abdomen/Pelvis without Cont IMPRESSION: Distended gallbladder with multiple gallstones. Right renal cyst. Electronically Signed: Dimitri Ordonez MD at 11:54 EDT ,
--- NOTE | 2023-03-28 11:20 | CT_ITS ---
STUDY: CT LUMBAR SPINE WITHOUT CONTRAST REASON FOR EXAM: Female, 67 years old. Fall, back pain s/p laminectomy. RADIATION DOSAGE (If Supplied By Facility): CTDIvol = ( 8.99 ) mGy, DLP = ( 757.46 ) mGycm TECHNIQUE: The patient was scanned in a multi detector CT scanner. High resolution transaxial imaging was performed. Images were obtained from L1 to S1 vertebral level. Sagittal and coronal images were reconstructed. Individualized dose optimization techniques were used for this CT. COMPARISON: Comparison is made with prior study dated February 13, 2023. FINDINGS: There is straightening of the normal lumbar lordosis. There is no substantial scoliosis. The patient is status post laminectomy and interpedicular screw and pancho fixation at the L1-L2, L2-L3, L3-L4 and L4-L5 levels. L1-2: Moderate degree of disc space narrowing. Spondylosis. L2-3: Spondylosis and disc space narrowing. L3-4: Spondylosis and disc space narrowing. L4-5: Spondylosis and disc space narrowing. Minimal degree of anterior listhesis of L4 on L5. L5-S1: Spondylosis and disc space narrowing. Normal visualized paraspinous soft tissue structures. CT/Spine Lumbar without Contrast IMPRESSION: Status post multilevel laminectomy with intrapedicle screw and pancho fixation. No acute abnormality is seen. Multilevel disc space narrowing and spondylosis. Electronically Signed: Dimitri Ordonez MD at 12:11 EDT ,
[2023-03-28 13:28] VITALS: RESP 18
== END 2023-03-28 13:10 | disposition home or self-care (01) ==
PROVIDERS: Emergency Provider Emergency Medicine; PCP Family Medicine; Visit Provider Emergency Medicine
DX: S20.229A Contusion of unspecified back wall of thorax, initial encounter (principal); S30.1XXA Contusion of abdominal wall, initial encounter; G89.18 Other acute postprocedural pain; W19.XXXA Unspecified fall, initial encounter
CPT/HCPCS: 72131; 74176; 99282

== ENCOUNTER → 2023-06-11 | Outpatient (CLI) | payer MEDICARE, MEDICAID, SELFPAY ==
--- NOTE | 2023-06-11 13:03 | BI_ITS ---
MAMMOGRAPHY - BILATERAL SCREENING REASON FOR EXAM: Female, 67 years old. Routine annual screening examination. PERTINENT HISTORY: Non-contributory. Remote left excisional breast biopsy. TECHNIQUE: Digital bilateral breast lucinda (3D mammographic acquisition) in the CC and MLO projections. 2-D mediolateral oblique (MLO) and craniocaudad (CC) views of both breasts were obtained. CAD: Full Field Digital Mammography with Computer Added Detection was performed. COMPARISON: Comparison is made with prior study dated June 04, 2022 and August 25, 2020. FINDINGS: Breast Composition: The breasts are heterogeneously dense, which may obscure small masses. There are no dominant masses or suspicious calcifications. Stable small benign-appearing bilateral axillary lymph nodes. No other significant abnormalities are identified. There has been no significant change since the prior study. BI/SCRN MAMM (CAD)W/LUCINDA BILAT IMPRESSION: Stable bilateral screening mammogram. Yearly follow-up mammogram recommended. (A) ASSESSMENT CATEGORY: BIRADS Category 2: Benign. A letter regarding these results will be sent to the patient by the facility within 30 days. Approximately 10% of breast cancers are not detected by mammography. A normal mammogram should not delay biopsy of a clinically suspicious abnormality. [id number] Electronically Signed: Dimitri Ordonez MD at 13:41 EST ,
[2023-06-11 13:46] LABS: Absolute Lymphocyte Count 1.68 X10^3/uL (0.83-4.51); Absolute Neutrophil Count 4.3 X10^3/uL (2.0-7.7); Basophil# 0.03 X10^3/uL; Basophil% 0.5 % (0-1); Eosinophil# 0.15 X10^3/uL; Eosinophils% 2.3 % (0-5); Hematocrit 42.5 % (37-47); Hemoglobin 13.6 g/dL (12.0-15.0); Lymphocyte # 1.68 X10^3/ul (0.83-4.51); Lymphocyte % 25.2 % (19-41); Mean Corpuscular Hgb 32.5 pg (27.0-32.0); Mean Corpuscular Volume 101.4 fL (81-99); Mean Platelet Vol. 10.1 fl (6.2-12.0); Monocyte# 0.54 X10^3/uL; Monocyte% 8.1 % (0-10); NRBC Flagged by Analyzer 0 % (0-5); Neutrophil # 4.25 X10^3/uL (2.7-7.7); Neutrophil % 63.7 % (47-70); Platelet Count 249 K/mm3 (150-450); RBC Distribution Width CV 13.9 % (11.6-14.6); RBC Distribution Width SD 52.4 fl (35.1-43.9); Red Blood Count 4.19 M/mm3 (4.2-5.4); White Blood Count 6.7 K/mm3 (4.4-11.0)
[2023-06-11 13:59] LABS: ALB/GLOB Ratio 1.3 RATIO (0.9-2.4); AST(SGOT) 19 U/L (15-37); Alanine Aminotransfer ALT/SGPT 17 U/L (13-56); Albumin, Serum 4.2 g/dL (3.2-5.0); Alkaline Phosphatase 115 U/L (45-117); Anion Gap 4 (5-15); BUN 14 mg/dL (7-18); BUN/Creat Ratio 19.9 RATIO (10-20); Calcium,Total 9.8 mg/dL (8.5-10.1); Chloride 110 mmol/L (98-107); EST Glomerular Filtration Rate 88 mL/min (>60); Est Glom Filt Rate - Afr Amer 106 mL/min (>60); Globulin 3.3 g/dL (2.2-4.2); Glucose 116 mg/dL (74-106); Potassium 3.8 mmol/L (3.5-5.1); Protein, Total 7.5 g/dL (6.4-8.2); Sodium Level 142 mmol/L (136-145)
== END | disposition home or self-care (01) ==
PROVIDERS: PCP Family Medicine; Referring Provider Family Medicine; Visit Provider Family Medicine
DX: Z12.31 Encounter for screening mammogram for malignant neoplasm of breast (principal); I10 Essential (primary) hypertension
CPT/HCPCS: 36415; 77063; 77067; 80053; 85025

== ENCOUNTER → 2023-06-18 | Outpatient (CLI) | payer MEDICARE, MEDICAID, SELFPAY ==
--- NOTE | 2023-06-18 08:30 | RAD_ITS ---
STUDY: X-RAY CHEST REASON FOR EXAM: Female, 67 years old. Cough. TECHNIQUE: Frontal and lateral views of the chest. COMPARISON: August 01, 2022. FINDINGS: Stable hyperinflation. There is no demonstrated pleural abnormality. Mild cardiomegaly unchanged. Normal mediastinum and cata. Normal visualized pulmonary arteries. Stable aortic tortuosity. Thoracic osteopenia with diffuse mild thoracic spondylosis and posterior fusion of the lower thoracic and upper lumbar spine, unchanged. Normal visualized ribs, clavicles, and shoulders. No abnormality of the visualized soft tissue structures of the upper abdomen. RAD/Chest PA and Lateral IMPRESSION: Stable mild cardiomegaly with hyperinflation. No active or acute cardiopulmonary disease. Electronically Signed: Donny Varner MD at 9:56 EST ,
== END | disposition home or self-care (01) ==
LOC: RAD 08:28
PROVIDERS: PCP Family Medicine; Referring Provider Family Medicine; Visit Provider Family Medicine
DX: R05.9 Cough, unspecified (principal)
CPT/HCPCS: 71046

== ENCOUNTER 2023-07-16 10:00 | Outpatient (RCR) | payer MEDICARE, MEDICAID, SELFPAY ==
--- NOTE | 2023-04-23 11:51 | HP.PTEVAL_ITS ---
Patient's Visit Information Visit Information Visit Information: ALISHA AG is a 67 year old F referred to Physical Therapy by ANIA AMAYA with a diagnosis of lumbar radiculopathy, spinal stenosis, s/p laminectomy 03/20. Date of Evaluation: 04/23/23 Physical Therapist: Estrada Amin, DPT, OCS, CSCS Visit Plan Frequency: 2x /Week Duration: 4-6 Weeks Plan: 2x/week starting week of 05/06 for LB ROM exercise progression, core ex progression, LE quad and HS bands, body mechianics and funcitonal strength core. to HEP. Use MH, ice as needed. Pt to walk and do sinke and above mentioned ex in meantime progressing long walk from 8-15 minutes. Subjective Subjective: Had laminectomy revision t12 adn L1 on 03/20/23. Was having back pain and using a walker due to pain. therapy did not help. Since surgery has not done much. has sink exercises for legs at home that she does daily 3x12. pain is 5/10 most days but was 7 last week. It is worse with sitting too long but 1/10 at rest. if she overdoes it gets to 8/10 in in LB. No leg symptoms that she describes. L knee feels weak at times. Feels hip pain is 100% better, anterior hip pain is 80% better and back is worse than prior to surgery. precautions: no bending lifting or twisting for a while. Can do a little bit since f/u with doctor last week. Sleeping is not bad. Is on tylenol 3x/day. disabled due to back. No regular exercises other than that which was given to her at the sink and band pulls. Also does some pelvic tilts, SKKC, HS stretch, HS and marching and prir iformis stretch and bugs. Walks daily around apartment often, around building at times but gets tired and sore. Pain LBP: Pain Intensity (Out of 10): 1 Pain Intensity Range: 0 and 8 Objective Objective: Walks slightly hunched over but I today. Transfers are I bed and chair but hesitant and painful, very careful of bending and twisiting. Steps are reciprocal with rail and pulls herself up. LB AROM ext mod limited, flexion slow but min limited, SB are max limited and sore. Incision is central thoracic and lumbar and healed well without evidenc eof excessive redness, heat or swelling, dry. LE AROM WFL at hips and knees and ankles, HS min tight, quad min tight, gasstroc min tight but all comfortable, - SLR and slump. reflexes 2/3 patella and achilles sensation LE WNL to gross light touch. strength quads 4- and crampy, HS 4-, ankles 4, hip abd and ext 4-, hip flexion 4/5, core strength abs 4- and back extension 3. Balance/Special Test Scores Oswestry Low Back Score: 24 Goals Goal 1:: ST: ROM l/s without pain or hesitation with min deficits Goal Time Frame: 2-4 Weeks Goal 2:: Pain 0-2/10 at worst and 75% improved. Goal Time Frame: 4-6 Weeks Goal 3:: I approp HEPO and body mechanics to manage condition Goal Time Frame: 4-6 Weeks Goal 4:: Patient able totrasnition bed and chair without pain or hesitancy Goal Time Frame: 4-6 Weeks Goal 5:: oswestry 6 or less Goal Time Frame: 4-6 Weeks Rehabilitation Potential Physical Therapy Diagnosis: stiffness and weakness limiting function s/p surgery. Rehabilitation Potential: Good Anticipated Interventions Patient/Client Instruction: Educate patient on: Condition and Plan of Care For the Purpose of:: To decrease pain, To increase ROM, To improve nutrient delivery to tissue, To improve muscle performance and motor function, To increase tolerance to activity/condition/position, To improve ability of physical actions for home/community/work/leisure and To improve gait and locomotor functions Therapeutic Exercise to Include: Strength training, Postural training, Flexibilty training, Passive ROM and Active ROM For the Purpose of:: To decrease pain, To increase ROM, To improve nutrient delivery to tissue, To improve muscle performance and motor function and To increase tolerance to activity/condition/position Manual Therapy Techniques to Include: Passive ROM and Soft tissue mobilization For the Purpose of:: To decrease pain, To increase ROM and To improve nutrient delivery to tissue Cryotherapy (ice pack, ice massage): Yes Thermo therapy (hot pack): Yes For the Purpose of:: To decrease pain, To increase ROM and To improve nutrient delivery to tissue Text: Thank you for the opportunity to evaluate your patient. For Medicare and Medicare HMO plans, please review the plan of care and approve it. It will need to be FAXED BACK to us at [phone] for Medicare purposes. For Medicare only, by signing this I certify the plan of care. Please let me know if there are questions or concerns regarding this plan of care. Physician Signature: Date:
--- NOTE | 2023-05-29 13:58 | HP.PTREVAL ---
Re-Evaluation Intro: ANIA AMAYA, It has been my pleasure to treat ALISHA AG over the last 6 visits for lumbar radiculopathy, spinal stenosis, s/p laminectomy 03/20. Please see the progress note below for an update on the physical therapy plan of care! Subjective Subjective: Doing Ok. Pain free at rest. Walking in 3/10 in LB. Walking 20 minutes 2x/day without a problem. To doctor on Saturday in a week. Sleep is OK with sleep aids. Activities: avoids cleaning. Not bending. Avoiding bending. Objective Objective/Function: Good AROM but has catches coming back to neutral form lumbar ext and flexiona dn SB. Walking well and safe. Can bend to touch floor but slow and hesitant, recovering with some discomfort once upright. Plan Plan Plan: Pt to continue half exercises 3x/week each and 20 min walks 2x/day Goals still appropriate for another month and hopint to add some gentle bending and w=twisting progressions after doctor visit in two weeks. fair prognosis with compliance. Balance/Gait/Functional tests Balance/Special Test Scores Oswestry Low Back Score: 18 Goals Goals Goal 1:: ST: ROM l/s without pain or hesitation with min deficits Goal Time Frame: 2-4 Weeks Goal Progress: Progressing Goal 2:: Pain 0-2/10 at worst and 75% improved. Goal Time Frame: 4-6 Weeks Goal Progress: Progressing Goal 3:: I approp HEPO and body mechanics to manage condition Goal Time Frame: 4-6 Weeks Goal Progress: Progressing Goal 4:: Patient able totrasnition bed and chair without pain or hesitancy Goal Time Frame: 4-6 Weeks Goal Progress: Goal Met Goal 5:: oswestry 6 or less Goal Time Frame: 4-6 Weeks Goal Progress: Progressing Anticipated Interventions Anticipated Interventions Patient/Client Instruction: Educate patient on: Condition and Plan of Care For the Purpose of:: To decrease pain, To increase ROM, To improve nutrient delivery to tissue, To improve muscle performance and motor function, To increase tolerance to activity/condition/position, To improve ability of physical actions for home/community/work/leisure and To improve gait and locomotor functions Therapeutic Exercise to Include: Strength training, Postural training, Flexibilty training, Passive ROM and Active ROM For the Purpose of:: To decrease pain, To increase ROM, To improve nutrient delivery to tissue, To improve muscle performance and motor function and To increase tolerance to activity/condition/position Manual Therapy Techniques to Include: Passive ROM and Soft tissue mobilization For the Purpose of:: To decrease pain, To increase ROM and To improve nutrient delivery to tissue Cryotherapy (ice pack, ice massage): Yes Thermo therapy (hot pack): Yes For the Purpose of:: To decrease pain, To increase ROM and To improve nutrient delivery to tissue Re-Evaluation Ending Re-evaluation ending: Please do not hesitate to contact me at [phone] by phone or if you have questions or concerns regarding this new plan of care! Sincerely, Estrada Amin, DPT, OCS, CSCS
--- NOTE | 2023-07-16 10:45 | HP.PTDCSUM ---
Discharge Summary D/C summary: It has been my pleasure to treat ALISHA AG referred by ANIA AMAYA, with the diagnosis of lumbar radiculopathy, spinal stenosis, s/p laminectomy 03/20 for a total of 8 visit(s). Discharge Date: 07/16/23 Please see the following information for a summary of their discharge status. Subjective Subjective: Every now and then it hurts momentarily. taking tylenol 3x/day. Weaning down on tylenol. Gets 3-4/10 with bending lifting or twisting. Doing [employer] choir for an hour without issues. Doing 1:45 min walk in the [place]. Feels like she is hunched over walking sometimes. Sleep is waking up early since the time change, not due to your back. activities: avoids vaccuming but probably could , sweeeps instead. Standing as to fix things in kitchen is only slightly limited. No f/u with doctor Pain LBP: Pain Intensity (Out of 10): 1 Overall Improvement % Improvement: 70 Objective Objective/Function: L/S AROM WFL and without pain today, ext min limited and only end range discomfort transiently. flexion to floor only limited by HS. Balance and walking are normal, steps are reciprocal with one rail. Overall doing excellent and continues to imprve with her HEP. Goals Goal 1:: ST: ROM l/s without pain or hesitation with min deficits Goal Progress: Goal Met Goal 2:: Pain 0-2/10 at worst and 75% improved. Goal Progress: Progressing Goal 3:: I approp HEPO and body mechanics to manage condition Goal Progress: Goal Met Goal 4:: Patient able totrasnition bed and chair without pain or hesitancy Goal Progress: Goal Met Goal 5:: oswestry 6 or less Goal Progress: Progressing Plan Plan: d/c to HEP D/C Information Discharge Comments: To continue via HEP and contact doctor if problems. d/c sentence: If there are questions or concerns regarding this patient's physical therapy, please feel free to call me at [phone]. Thank you for the referral of this patient. Sincerely, Estrada Amin, DPT, OCS, CSCS Balance/Gait/Functional tests Balance/Special Test Scores Oswestry Low Back Score: 11 Improvement % Improvement: 70
== END 2023-07-16 19:00 | disposition home or self-care (01) ==
LOC: PT 10:00
PROVIDERS: PCP Family Medicine
DX: M54.50 Low back pain, unspecified (principal); M54.16 Radiculopathy, lumbar region; M48.062 Spinal stenosis, lumbar region with neurogenic claudication
CPT/HCPCS: 97110; 97161; 97164; 97530

== ENCOUNTER → 2023-08-06 | Outpatient (CLI) | payer MEDICARE, MEDICAID, SELFPAY ==
[2023-08-06 11:41] LABS: Absolute Lymphocyte Count 2.48 X10^3/uL (0.83-4.51); Absolute Neutrophil Count 2.6 X10^3/uL (2.0-7.7); Basophil# 0.05 X10^3/uL; Basophil% 0.8 % (0-1); Eosinophil# 0.12 X10^3/uL; Hematocrit 43.5 % (37-47); Hemoglobin 13.6 g/dL (12.0-15.0); Lymphocyte # 2.48 X10^3/ul (0.83-4.51); Lymphocyte % 42.1 % (19-41); Mean Corp Hgb Conc 31.3 g/dL (32-36); Mean Corpuscular Hgb 32.2 pg (27.0-32.0); Mean Corpuscular Volume 102.8 fL (81-99); Mean Platelet Vol. 10.1 fl (6.2-12.0); Monocyte# 0.65 X10^3/uL; NRBC Flagged by Analyzer 0 % (0-5); Neutrophil # 2.58 X10^3/uL (2.7-7.7); Neutrophil % 43.9 % (47-70); Platelet Count 263 K/mm3 (150-450); RBC Distribution Width CV 14.5 % (11.6-14.6); RBC Distribution Width SD 55.3 fl (35.1-43.9); Red Blood Count 4.23 M/mm3 (4.2-5.4); White Blood Count 5.9 K/mm3 (4.4-11.0)
[2023-08-09 06:09] LABS: Immunoglobulin E 19 IU/mL (6-495)
[2023-08-09 10:08] LABS: Alternaria tenuis <0.10 kU/L (Class 0); Ash, White <0.10 kU/L (Class 0); Aspergillus fumigatus 0.31 kU/L (Class 0/I); Bermuda Grass <0.10 kU/L (Class 0); Birch <0.10 kU/L (Class 0); Black Walnut <0.10 kU/L (Class 0); Cat Hair / Dander,Stand <0.10 kU/L (Class 0); Cedar, Mountain <0.10 kU/L (Class 0); Cladosporium herbarum <0.10 kU/L (Class 0); Cockroach, American <0.10 kU/L (Class 0); Cottonwood <0.10 kU/L (Class 0); D farinae Mite <0.10 kU/L (Class 0); D pteronyssinus <0.10 kU/L (Class 0); Dog Epithelia <0.10 kU/L (Class 0); Elm, American White <0.10 kU/L (Class 0); Immunoglobulin E 19 IU/mL (6-495); Maple/Box Elder <0.10 kU/L (Class 0); Mouse Urine <0.10 kU/L (Class 0); Mulberry, White <0.10 kU/L (Class 0); Oak, White <0.10 kU/L (Class 0); Pecan <0.10 kU/L (Class 0); Penicillium Notatum <0.10 kU/L (Class 0); Pigweed, Rough <0.10 kU/L (Class 0); Ragweed, Short/Common <0.10 kU/L (Class 0); Russian Thistle <0.10 kU/L (Class 0); Sheep Sorrel <0.10 kU/L (Class 0); Sycamore, American <0.10 kU/L (Class 0); Timothy Grass <0.10 kU/L (Class 0)
== END | disposition home or self-care (01) ==
LOC: PAVLAB 11:27
PROVIDERS: PCP Family Medicine; Referring Provider Internal Medicine Critical Care Medicine; Visit Provider Internal Medicine Critical Care Medicine
DX: J45.909 Unspecified asthma, uncomplicated (principal)
CPT/HCPCS: 36415; 82785; 85025; 86003

== ENCOUNTER → 2023-08-15 | Outpatient (CLI) | payer MEDICARE, MEDICAID, SELFPAY ==
--- OUTSIDE RECORDS SUMMARY | 2023-08-15 10:17 | XMS RPT_ITS | CCD ---
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 Markos Mock Attending Rociovadamion greenberg UNKNOWN, PCP Primary Care Unavailable Levon, Dr. Markos Mock Attending Aimee James, Dr. Mariana Wood Primary Care Unavailable Levon, Dr. Markos Mock Attending Aimee James, Dr. Mariana Wood Primary Care Unavailable Lakisha, Ms. Maggie Hernandez Attending Aimee James, Dr. Mariana Wood Referring Unavailable Erika, Dr. Mariana Wood Primary Care Unavailable Levon, Dr. Markos Mock Attending Aimee Dos Santos, Dr. Markos Mock Referring Unavai labrenea UNKNOWN, PCP Primary Care Unavailable Levon, Dr. Markos Mock Attending Aimee Dos Santos, Dr. Markos Mock Referring Unavai lable UNKNOWN, PCP Primary Care Unavailable Levon, Dr. Markos Mock Attending Aimee Toscano, Dr. Yousif Referring Unavailable Erika, Dr. Mariana Wood Primary Care Unavailable Levon, Dr. Markos Mock Admitting Mariana Cardona DO Primary Care Provider MAGGIE BANUELOS Attending Unavailable MARIANA JAMES Primary Care Unavailable Allergies Allergy Classification Reported Allergen(s) Allergy Type Date of Onset Reaction(s) Facility Opioid Agonists (2 sources) Morphine Drug Allergy Itching, Anaphylaxis [facility] (2 sources) Azithromycin; Translations: [AZITHROMYCIN] Drug Allergy 3 Unknown [facility] Work Phone: (2 sources) buPROPion; Translations: [BUPROPION] Drug Allergy 6 Other [facility] Work Phone: (2 sources) Erythromycin; Translations: [ERYTHROMYCIN BASE] Drug Allergy 6 GI Upset [facility] Work Phone: (2 sources) fexofenadine; Translations: [FEXOFENADINE] Drug Allergy 0 Other [facility] Work Phone: (2 sources) HYDROmorphone; Translations: [HYDROMORPHONE] Drug Allergy 3 Anaphylaxis, Itching [facility] (2 sources) Morphine; Translations: [MORPHINE] Drug Allergy 3 Itching [facility] Work Phone: (2 sources) sodium nitrate; Translations: [SODIUM NITRATE] Drug Allergy 2 Unknown [facility] Work Phone: (2 sources) Triamcinolone; Translations: [TRIAMCINOLONE] Drug Allergy 0 Other [facility] Work Phone: (2 sources) Adhesive Tape-Silicones; Translations: [ADHESIVE TAPE-SILICONES] Drug Intolerance 0 Hives [facility] Work Phone: Medications Current Medications Medication Drug Class(es) Dates Sig (Normalized) Sig (Original) acetaminophen 325 mg oral tablet (1 source) Start: 01-27-2021 End: 02-25-2021 take 2 tablets by mouth every six hours acetaminophen 325 mg oral tablet ; 2 tab(s) orally every 6 hours Quantity: 240 Refills: 0 Ordered: 27-Jan-2021 Haja Heredia Start: 27-Jan-2021 End: 25-Feb-2021 Generic Substitution Allowed Comments: This product contains acetaminophen. Do not use with any other product containing acetaminophen to prevent possible liver damage. Completed/Discontinued Medications Medication Drug Class(es) Dates Sig (Normalized) Sig (Original) methocarbamol 500 mg oral tablet (6 sources) Muscle Relaxant Start: 04-03-2023 take 1-2 tablets by mouth every eight hours as needed Methocarbamol 500 MG Oral Tablet take one to two tablets every 8 hours prn. Quantity: 90 Refills: 2 Ordered: 03-Apr-2023 Bianca Bah PA-C Start : 03-Apr-2023 Active Problems Active Problems Problem Classification Problem Date Documented Date Episodic/Chronic Asthma (3 sources) Asthma; Translations: [Asthma, unspecified type, unspecified] Onset: 02-03-2021 02-03-2021 Chronic Complication of device; implant or graft (1 source) Injury of cauda equina ; Translations: [Cauda equina spinal cord injury without evidence of spinal bone injury] 01-27-2021 Chronic Esophageal disorders (3 sources) Gastroesophageal reflux disease; Translations: [Esophageal reflux] Onset: 02-03-2021 02-03-2021 Chronic Essential hypertension (1 source) Essential (primary) hypertension; Translations: [Essential (primary) hypertension] Onset: 03-15-2023 Chronic Headache; including migraine (1 source) Migraine, unspecified, not intractable, without status migrainosus; Translations: [Migraine, unsp, not intractable, without status migrainosus] Onset: 03-15-2023 Chronic Headache; including migraine (1 source) Headache; including migraine; Translations: [Headache, unspecified] Onset: 03-26-2023 Immunizations and screening for infectious disease (1 source) Contact with or exposure to other viral diseases Onset: 02-03-2021 02-03-2021 Episodic Mood disorders (2 sources) Acute depression; Translations: [Major depressive affective disorder, single episode, unspecified] Onset: 02-03-2021 02-03-2021 Chronic Mood disorders (1 source) Mood disorders; Translations: [Depression, unspecified] Onset: 03-15-2023 Nausea and vomiting (1 source) Nausea; Translations: [Nausea] Onset: 03-26-2023 Episodic Other aftercare (1 source) Other meterman (current) drug therapy; Translations: [Other meterman (current) drug therapy] Onset: 03-15-2023 Episodic Other connective tissue disease (1 source) Arthrodesis status; Translations: [Arthrodesis status] Onset: 03-15-2023 Episodic Other diseases of kidney and ureters (1 source) Cyst of kidney, acquired; Translations: [Cyst of kidney, acquired] Onset: 03-15-2023 Episodic Other ear and sense organ disorders (1 source) Unspecified hearing loss, unspecified ear; Translations: [Unspecified hearing loss, unspecified ear] Onset: 03-15-2023 Chronic Other injuries and conditions due to external causes (2 sources) Spinal injury 01-27-2021 Episodic Past or Other Problems Problem Classification Problem Date Documented Da te Episodic/Chronic Unclassified (2 sources) Low back pain, unspecified; Translations: [Low back pain, unspecified] Onset: 04-17-2023 Results Test Name Value Interpretation Reference Range Facil ity Vital Signs Date Time Vital Sign Value Performing Clinician Facility 06-10-2023 10:54-0500 Body height 157.5 cm MaggiecWyze Work Phone: [facility] 06-10-2023 10:54-0500 Body mass index (BMI) [Ratio] 24.31 kg/m2 [place] Work Phone: [facility] 06-10-2023 10:54-0500 Body weight 60.3 kg MaggiecWyze Work Phone: [facility] 02-04-2021 10:00-0400 Body temperature 98.42 [degF] Pcp Unknown [facility] 02-04-2021 10:00-0400 Diastolic blood pressure 74 mm[Hg] Pcp Unknown [facility] 02-04-2021 10:00-0400 Heart rate 72 /min Pcp Unknown [facility] 02-04-2021 10:00-0400 Respiratory rate 18 /min Pcp Unknown [facility] 02-04-2021 10:00-0400 SaO2% (BldA) [Mass fraction] 95 % Pcp Unknown [facility] 02-04-2021 10:00-0400 Systolic blood pressure 120 mm[Hg] Pcp Unknown [facility] Encounters Encounter Date Encounter Type Care Provider Facility Start: 06-10-2023 End: 06-10-2023 ambulatory MAGGIE BANUELOS [facility] Start: 06-10-2023 End: 06-10-2023 Postop follow up visit related to original px Maggie Banuelos PA-C Work Phone: [facility] Procedures Date Procedure Procedure Detail Performing Clinician Start: 03-15-[address] Nico Dos Santos Plan of Treatment Date Care Activity Detail Author Start: 05-15-2028 DTaP/Tdap/Td Vaccine s (2 - Td or Tdap) DTaP/Tdap/Td Vaccines (2 - Td or Tdap) [facility] Start: 06-10-2023 End: 06-07-2024 XR Lumbar spine 2 or 3 Views XR lumbar spine 2-3 views Imaging Routine Lumbar pain Expected: 06/10/2023, Expires: 06/07/2024 [facility] Service Area Work Phone: Immunizations Immunization Date Immunization Notes Care Provider Fa cility 09-04-2021 Moderna COVID-19 Vac cine 100 MCG/0.5ML Intramuscular Suspension Referring Provider Unknown JO-Pvjim[facility]henm-Ps [facility] Work Phone: 08-03-2021 Moderna COVID-19 Vac cine 100 MCG/0.5ML Intramuscular Suspension Referring Provider Unknown AX-Spklzzkntqlp-Vk [facility] Work Phone: 05-15-2018 tetanus toxoid, redu magda diphtheria toxoid, and acellular pertussis vaccine, adsorbed Referring Provider Unknown VV-Jeucsyukihrd-Lu [facility] [address] Work Phone: Payers Date Payer Category Payer Unknown 2020 Unknown [id number] 1955 Unknown [id number] 2.16. [id number] 1955 Unknown [id number] 2.16. [id number] 1955 Unknown [id number] 2.16. [id number] 1955 Unknown [id number] 2.16. [id number] 1955 Unknown [id number] 2.16. [id number] 1955 Unknown [id number] 2.16. [id number] 1955 Unknown [id number] 2.16. [id number] 1955 Unknown [id number] [id number] Social History Date Type Detail Facility [facility] Tobacco smoking consumption unknown [facility] Start: 06-10-2023 Tobacco smoking status NHIS Never smoked tobacco [facility] Work Phone: Start: 06-10-2023 Tobacco use and exposure Smokeless tobacco non-user [facility] Work Phone: Start: 1955 Sex Assigned At Not on file [facility] Work Phone: Gender identity Not on file [facility]: Start: 05-31-2023 End: 06-10-2023 Exposure to SARS-CoV-2 (event) Not sure [facility] Work Phone: Medical Equipment Procedure Code Equipment Code Equipment Origin al Text Equipment Identifier Dates Bone Graft, Oste ocel Plus, Cellular,Matrix, 10cc Case [id number] Start: 01-27-2021 Functional Status Date Assessment Result Facility Bladder: fully continent [facility] Mental Status Date Assessment Result Facility 01-27-2021 Cognitive functions 28-Jan-20 2111:55 [facility] Clinical Notes 11-30-2020 to 06-10-2023 Maggie Banuelos PA-C - 06/10/2023 11:00 AM EST<item> Note Date & Type Note Facility 06-10-2023 History of Present illness Narrative Alisha returns today for her second postop appointment. Date of surgery was March 20. Overall, the patient is doing fantastic. She is getting stronger every day. She is doing more as well. She is looking forward to getting back in with her [employer], Justine jones. She is working with physical therapy and is exercising on a routine basis as well. We Did discuss at this point time she is 0 restrictions or limitations. If she needs any referrals in the future or any questions or concerns do, she is more than welcome to call us and we will be more than happy to help her but as of now she will follow-up with our spine team as needed. I reviewed the complete 30-point review of systems that was documented on the scanned patient intake form. All other systems are non-contributory except as defined in history of present illness. This note was dictated using speech recognition software and was not corrected for spelling or grammatical errors documented in this encounter [facility] Work Phone: 03-26-2023 Note Send Summary: Discharge Summary Providers: Provider RoleProvider Name Benja Santiago Zachary PrimaryMalys, Lisa A Note Recipients: Markos Dos Santos MD Malys, Lisa A, - [id number] [] Benja Toscano DO Discharge: Summary: Admission Date: .20-Mar-2023 08:01:00 Discharge Date: 26-Mar-2023 Attending Physician at Discharge: Markos Dos Santos Admission Reason: s/p laminectomy and fusion Final Discharge Diagnoses: Lumbar stenosis Procedures: Date: 20-Mar-2023 13:15:00 Procedure Name: 1. REVISION L1-2 LAMINECTOMY AND FUSION 2. Repair of incidental durotomy Condition at Discharge: Satisfactory Disposition at Discharge: Home Health Care - New Hospital Course: 67 year-old female who presented with lumbar stenosis after prior fusion. Patient is now s/p revision L1-2 laminectomy and fusion, dural repair on 03/[address] Dos Santos. On the day of surgery, patient was identified in the pre-operative holding area and agreeable to proceed with surgery. Written consent was obtained. Please see operative note for further details of this procedure. Patient received 24 hours of nataly-operative antibiotics. Patient recovered in the PACU before transfer to a regular nursing floor. Patient was started on oxycodone, tylenol, robaxin, toradol, decadron for pain control. Physical therapy recommended continued recovery at home with continued physical therapy and wound care. On the day of discharge, patient was afebrile with stable vital signs. Patient was neurovascularly intact at time of discharge. Patient will follow-up with Dr. Dos Santos in 4 weeks for post-operative visit.. Discharge Information: and Continuing Care: Lab Results - Pending: None Radiology Results - Pending: None Discharge Instructions: Activity: activity with assistance PROGRESSIVE WALKING AT LEAST 2X/DAY. May shower.. WHEN NO DRAINAGE FROM INCISIONAL AREA May not return to school/work. May not drive until follow-up visit. or while taking narcotic medication No pushing, pulling, or lifting objects greater than 10 pounds. Weight-bearing Instructions: full weight bearing. NO EXCESSIVE BENDING/TWISTING, NO HEAVY HOUSE/YARD WORK Nutrition/Diet: resume normal diet Wound Care: Wound Site: BACK (Lumbar Spine) Wound Type: surgical incision Change Dressing: daily UNTIL NO LONGER DRAINING, THEN YOU CAN LEAVE THE DRESSING OFF Cleanse With: soap and water, ONCE THE INCISION IS NO LONGER DRAINING AND YOU ARE ABLE TO SHOWER. Cover With: abdominal dressing Tape With: paper tape Instructions: no lotions, creams, or tub soaks Other Instructions: If there is a Exofin dressing (Strip) over your incision, do not remove it with your dressing changes. The dressing will slowly lift away from the skin over time. Additional Orders: Additional Instructions: MAY USE HEAT OR ICE TO YOUR BACK NEEDED FOR COMFORT NO NSAIDS (ADVIL, IBUPROFEN, ALEVE... ETC.) FOR 8 WEEKS, THEY HAVE A BAD EFFECT ON HEALING OF FUSION. Home Care Certification: Home Care Agency: Home Team Skilled Disciplines Ordered: PT, OT Home Care Services: Home Care Skilled Service: Rehab (PT/OT/SP eval and treat) Follow Up Appointments: Follow-Up Appointment 01: Physician/Dept/Service: Dr. Markos Dos Santos/ Orthopaedic Surgery/ Spine Reason for Referral: Postoperative Follow Up Appointment Scheduled Date/Time: 15-Apr-2023 09:30 Location: [facility] [address] Phone Number: Office: [phone] Discharge Medications: Home Medication cetirizine 10 mg oral tablet - 1 tab(s) oral once a day Colace 100 mg oral capsule - 1 cap(s) oral every 6 hours Flovent HFA 110 mcg/inh inhalation aerosol - 2 puff(s) inhaled once a day ondansetron 4 mg oral tablet - 1 tab(s) orally every 6 hours as needed for nausea scopolamine 1 mg/72 hr transdermal film, extended release - 1 patch transdermally every 3 days amLODIPine 10 mg oral tablet - 1 tab(s) oral once a day lansoprazole 30 mg oral delayed release capsule - 1 cap(s) oral once a day pramipexole 0.125 mg oral tablet - 1 tab(s) oral once a day Singulair 10 mg oral tablet - 1 tab(s) oral once a day venlafaxine 75 mg oral tablet - 1 tab(s) oral 2 times a day PRN Medication hydrOXYzine hydrochloride 50 mg oral tablet - 1-2 tab(s) orally once a day, As Needed sleep Imitrex 100 mg oral tablet - 1 tab(s) orally once a day, As Needed migraines DNR Status: Code StatusCode Status order at time of discharge: Full Code Attestation: Note Completion: I am a: Resident/Fellow Attending AttestationI reviewed the resident/fellows documentation and discussed the patient with the resident/fellow. I agree with the resident/fellows medical decision making as documented in the note. Electronic Signatures: Markos Dos Santos) (Signed 10-Apr-2023 15:10) Authored: Note Completion Co-Signer: Send Summary, Summa (more content not included)... [facility] 03-20-2023 Note Clinical Note - Phar flakita v2: Education: Document TopicMedication Education MedicationMeds to Beds: Patient declines Meds to Beds service at discharge. Pharmacy: [facility] in [place] Sources used to confirm home medication list: [facility] note from 03/11, surescripts, OARRs and Patient interview (good historian- also brought a detailed medication list) Additional comments: Patient was taking multiple herbal supplements prior to coming in, but was not sure if she will be continuing them after discharge. She stopped all supplements about a week ago. Listed are the supplements listed: B complex, vitamin C, calcium, cinnamon, cranberry, vision formulation, fiber therapy, garlic, magnesium, omega 3, multivitamin one a days, probiotic, quercetin, tumeric, vinegar, melatonin. Medication reconciliation complete Please reach out via [employer] for questions, or if no response call [phone] or [email or web address] [facility] Svetlana Sparks PharmD, [facility], [facility] Pharmacist [facility] Is This Intervention Medication Reconciliation Relatedyes [facility] Additional NotesHome Medications Review Status for Reconciliation: Complete Med Status: Patient Currently Takes Medications Drug Name: amLODIPine 10 mg oral tablet Instructions: 1 tab(s) oral once a day Drug Name: cetirizine 10 mg oral tablet Instructions: 1 tab(s) oral once a day Drug Name: Colace 100 mg oral capsule Instructions: 1 cap(s) oral every 6 hours Drug Name: hydrOXYzine hydrochloride 50 mg oral tablet Instructions: 1-2 tab(s) orally once a day, As Needed sleep Drug Name: lansoprazole 30 mg oral delayed release capsule Instructions: 1 cap(s) oral once a day Drug Name: pramipexole 0.125 mg oral tablet Instructions: 1 tab(s) oral once a day Drug Name: Singulair 10 mg oral tablet Instructions: 1 tab(s) oral once a day Drug Name: venlafaxine 75 mg oral tablet Instructions: 1 tab(s) oral 2 times a day Drug Name: Flovent HFA 110 mcg/inh inhalation aerosol Instructions: 2 puff(s) inhaled once a day Drug Name: Imitrex 100 mg oral tablet Instructions: 1 tab(s) orally once a day, As Needed migraines Drug Name: Colace 100 mg oral capsule Instructions: 1 cap(s) orally 2 times a day Drug Name: MiraLax oral powder for reconstitution Instructions: 17 gram(s) orally 2 times a day Drug Name: oxyCODONE 5 mg oral tablet Instructions: 1-2 tab(s) orally every 4-6 hours as needed for pain for 7 days Drug Name: Tylenol 325 mg oral tablet Instructions: 2 tab(s) orally every 6 hours History [facility] interview Allergy: Allergies Summary Allergy Allergen: morphine Type: Drug Reaction: Itching Allergen: Dilaudid Type: Drug Reaction: Anaphylaxis Itching Allergen: fexofenadine Type: Drug Reaction: Unknown Allergen: Wellbutrin XL Type: Drug Reaction: Unknown Allergen: triamcinolone Type: Drug Reaction: Unknown Intolerance Allergen: azithromycin Type: Drug Reaction: GI Upset Electronic Signatures: Svetlana Sparks ([facility]) (Signed 20-Mar-2023 14:26) Authored: Education, Allergy Last Updated: 20-Mar-2023 14:26 by Svetlana Sparks ([facility]) [facility] 03-20-2023 Note PROCEDURE DETAILS Preoperative Diagnosis: Neurogenic claudication due to lumbar spinal stenosis, M48.062 Postoperative Diagnosis: 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 REVISION L1-2 LAMINECTOMY AND FUSION 2. Repair of incidental durotomy Anesthesia: Cosic, Aiden Estimated Blood Loss: 100cc Findings: Severe stenosis, large herniated disc L1-2. Drains and/or Catheters: Hemovac x1 Operative Report: INDICATIONS FOR SURGERY: Patient is 2 years status post L2-5 laminectomy and fusion for cauda equina syndrome. She did well following surgery. She presented to the clinic with progressively worsening lower back pain and difficulty with standing and walking. She failed conservative treatment. MRI and x-rays demonstrated disc space collapse at L1 to with severe central stenosis due to a large disc herniation and lateral recess changes. Risks and benefits of procedure were discussed with the patient at length, her questions were answered. She wished to proceed with surgery. PROCEDURE: Patient was brought back to the operating room and general anesthesia was induced. SCDs were placed on the lower extremities. Patient was then positioned prone on the Jovanni frame, all bony prominences were well padded. A time-out was performed and preoperative antibiotics were given. The posterior lumbar spine was then prepped and draped in the usual sterile fashion. Her previous midline incision was reopened. This was extended proximally. The upper half of the incision was utilized. A subperiosteal dissection was carried out exposing the facet joints at T12-L1, L1-L2, and the conner between L2 and L3. Transverse processes of L1 and the fusion mass were exposed bilaterally. Her previous fusion appears to be well-healed. Deep retractors were then placed. A central laminectomy was performed by removing the spinous processes. The L1 to interspace was entered using an angled curette. A central laminectomy was then carried out using a series of Kerrison rongeur is up to the superior edge of the ligamentum flavum at the upper most level. The central ligamentum flavum was excised using angled curettes and Leksell rongeur. Thorough decompression of the bilateral L1 and L2 nerve roots was carried out. Each individual nerve was identified and protected using a Saunders elevator. The pars at each level was undercut using a small Kerrison rongeur and a Saunders elevator was easily passed out the neural foramen. The lateral recesses were undercut using a Kerrison rongeur, partial medial facetectomies were performed bilaterally at each level. Severe lateral recess stenosis was noted bilaterally consistent with the patient's preoperative MRI. Along the dorsal lateral left side a small incidental durotomy was created at the borderline of the new laminectomy in the previous laminectomy site. This measured approximately 3 mm in length. The arachnoid membrane was largely intact. The dura was reapproximated using 5-0 Prolene suture in a locked, running fashion. Watertight closure was verified with Valsalva. New pedicle screws were then placed bilaterally at L1 in a standard fashion. Conner to conner connectors were placed at the interspace between L2 and L3 along the previous conner. Fluoroscopy was used to verify conner and screw positioning. C shaped rods were fashioned into the correct size and affixed with locking caps. All caps were tightened with a torque wrench. The dorsal elements from L1 to the previous fusion mass were decorticated with a high-speed bur including the facet joints. The laminectomy bone was morselized and packed equally among the patient's right and left side to complete the fusion. This was augmented with 15 cc of Attrax bone graft substitute. The wound was then copiously irrigated with antibiotic saline. Meticulous epidural hemostasis was obtained. The dural repair was overlaid with DuraSeal exact dural sealant and remained watertight throughout the remainder of the operation. The wound was then closed in layers. A Dermabond Prineo and dry sterile dressing were then applied. Patient was then transferred off the OR table and awakened without difficulty. There were no complications during the case. This procedure was performed with a physician's ward assistant as no qualified orthopedic resident was available to assist. Bianca Bah was my full and primary ward assistant for the duration of the operation. Electronic Signatures: Markos Dos Santos) (Signed 20-Mar-2023 13:19) Authored: Post-Operative Note, Chart Review, Note Completion Last Updated: 20-Mar-2023 13:19 by Markos Dos Santos) [facility] 03-20-2023 History of Present illness Narrative Alisha returns today for her first postop appointment. Date of surgery was March 20 where she underwent a revision, L1-2 laminectomy and fusion with a dural repair.Overall, the patient is doing very well. She states that her preop symptoms have drastically improved. The only thing she is dealing with is beltline numbness and occasional hip and groin burning sensation. She is ambulating without any assistance, she said she discontinued using her walker earlier this week. She has normal appetite, full control of her bowel and bladder. She is taking her pain medication as prescribed. She did ask for refill on the oxycodone as well as a refill on the muscle relaxer.On exam, her incision is healing appropriately. No signs of infection or drainage.We will obtain x-rays of her lumbar spine and review the images after they are done.We did discuss her limitations and restrictions moving forward. When she is off of her pain medication she will be able to start to drive. We talked about slowly increasing her lifting restrictions every week. She can slowly start to bend, and twist more.She was given a referral for outpatient physical therapy and she will [facility] and I will obtain x-rays done as well.I reviewed the complete 30-point review of systems that was documented on the scanned patient intake form. All other systems are non-contributory except as defined in history of present illness.This note was dictated using speech recognition software and was not corrected for spelling or grammatical errors. [id number] Work Phone: 03-20-2023 Note History & Physical R eviewed: I have reviewed the History and Physical dated: 25-Feb-2023 History and Physical reviewed and relevant findings noted. Patient examined to review pertinent physical findings.: No significant changes Home Medications Reviewed: no changes noted Allergies Reviewed: no changes noted ERAS (Enhanced Recovery After Surgery): ERAS Patient: no Consent: COVID-19 Consent: COVID-19 Risk ConsentSurgeon has reviewed rosa risks related to the risk of courtney COVID-19 and if they contract COVID-19 what the risks are. Attestation: Note Completion: I am a: Resident/Fellow Attending AttestationI saw and evaluated the patient. I personally obtained the rosa and critical portions of the history and physical exam or was physically present for rosa and critical portions performed by the resident/fellow. I reviewed the resident/fellows documentation and discussed the patient with the resident/fellow. I agree with the resident/fellows medical decision making as documented in the note. I personally evaluated the patient [id number] Electronic Signatures: Markos Dos Santos) (Signed 04-Apr-2023 07:07) Authored: Note Completion Co-Signer: History & Physical Reviewed, ERAS, Consent, Note Completion Tyron Johns (Resident)) (Signed 20-Mar-2023 06:11) Authored: History & Physical Reviewed, ERAS, Consent, Note Completion Last Updated: 04-Apr-2023 07:07 by Markos Dos Santos) [facility] 02-18-2023 History of Present illness Narrative Patient returns for follow-up. I performed a elbow 2-5 posterior spinal fusion with decompression for cauda equina syndrome in 2020. She did very well following that operation with improvement in her pain and bladder function.Over the last year she has had progressively worsening lateral thigh pain and burning, it radiates down the back of her hamstrings. It is worse with standing and walking, improved with rest. She has to use a walker for ambulation. She has been treated with physical and aquatic therapy.She recently had new x-rays and MRI but she did not bring them with her today.On exam she walks with a forward leaning gait. She does not have any focal neurologic deficits. Negative straight leg raise test. No pathologic reflexes.I recommended at this point that she follow-up with me next week and bring her MRI on a disc. She is going to get that and see me next week.This note was dictated using speech recognition software and was not corrected for spelling or grammatical errors. [id number] Work Phone: 01-27-2021 History of Present illness Narrative Alisha returns today for her first postop appointment.Date of surgery was January 27 where she underwent an L2-5 decompression and fusion.The patient is at today's visit alone, she is currently at a rehab facility.In regards to her current symptoms, patient informed me that her preop symptoms are improving. Her incontinence has completely resolved. Her right foot drop that she had preoperatively has also improved. She is using a walker to help her ambulate. She does get physical therapy weekly at the rehab center. She is unsure of when she is being discharged from them and returning home. As far as symptoms that are concerning her, she does note having some bilateral hip pain other than that she does not have any other concerns. Her bowel function is normal her bladder function is also normal. She does note having an upset GI system from the food and does have some diarrhea periodically but nothing abnormal.She has been managing her pain with Tylenol. Her current pain level today is 3/10. The rehab center is managing her meds, she does not need any refills.X-rays of her lumbar spine are obtained. Results images reviewed with patient. These do show proper healing and alignment of her fusion.On physical exam, she is ambulating in an upright position with assistance of a walker. She is improved strength in her lower extremities bilaterally. Her right foot drop has improved. She is neurologically intact.On exam, her incision is healing nicely. No signs of infection or drainage.Moving forward, she was provided with a follow-up for 2 months. We will obtain AP LAT of her lumbar spine then. We did discuss increasing activity as tolerated. She had numerous questions and concerns and I did answer them all to the best my ability. I did fill out the necessary paperwork for the rehab center.Her current pain level today is 3/10I reviewed the complete 30-point review of systems that was documented on the scanned patient intake form. All other systems are non-contributory except as defined in history of present illness.This note was dictated using speech recognition software and was not corrected for spelling or grammatical errors. [facility] Work Phone: 01-27-2021 History of Present illness Narrative Alisha returns today for her second postop appointment. Date of surgery was January 27 where she underwent an L2-5 decompression and fusion.Since last office visit, the patient has been discharged from rehab, she was discharged March 03. She is at home and is doing phenomenal. She states that all her preop symptoms are almost completely gone. She has much improvement in her GI upset and is on a regular diet with regular bowel and bladder function. She is still dealing with the preop foot drop that she had on the right side but she is doing activity as tolerated.She is not taking any postop pain meds.sHe does not need any referrals for physical therapy.X-rays of her lumbar spine are obtained today. Results images reviewed with patient as well as compared to previous imaging. These results do show proper healing and alignment. No signs of hardware malfunction.On exam, she is ambulating in an upright position with improved strength in her bilateral lower extremities. She has normal sensation. Neurologically intact.Moving forward, the patient is doing significantly better. She is very happy and pleased with her progress thus far. We did discuss her restrictions moving forward with activity as tolerated. She does live in [facility] and did request that her next appointment be virtual, we will set this is a follow-up appointment in 2-3 months for a clinical recheck. If the patient is doing well this will be her last visit. She did give me an updated phone number to call her.[phone] will call her for her virtual appointment to see how she is doing.I reviewed the complete 30-point review of systems that was documented on the scanned patient intake form. All other systems are non-contributory except as defined in history of present illness.This note was dictated using speech recognition software and was not corrected for spelling or grammatical errors [facility] 210 Work Phone: 11-30-2020 Evaluation note Psychological : Appropriate mood and behaviorLymphatic: No significant lymphadenopathyMusculoskeletal: 5: SILT Deltoid 5/5 Left; 5/5 Right; Biceps 5/5 Left; 5/5 RightC6: SILT Wrist Ext: 5/5 Left; 5/5 RightC7: SILT Triceps: 5/5 Left; 5/5 RightC8: SILT Finger flexion: 5/5 Left; 5/5 RightT1: SILT Interossei: 5/5 Left; 5/5 Right L1: SILTL2: SILT Hip flexors 5/5 Left; 5/5 RightL3: SILT Knee extension 5/5 Left; 5/5 RightL4: SILT Tib Ant. (Dorsiflexion) 5/5 Left; 4/5 RightL5: SILT EHL 5/5 Left; 5/5 RightS1: SILT Plantar flexion 5/5 Left; 5/5 RightGastrointestinal: Soft, ntndCardiovascular: RRR by peripheral pulsesRespiratory/Thorax: Breathing normally on RAHead/Neck: Neck supple, trachea midlineEyes: EOMI, clear scleraSkin: Warm and dry, no rashesConstitutional: Awake/alert/oriented x3, no distress, alert and cooperative [facility] documented in this encounter [facility] Work Phone: History of Present illness Narrative* Patient returns for follow-up regarding her back and leg pain. She brought her MRI with her today. She recently completed [place] of physical [place] [facility]. She is quite miserable and can barely stand and walk due to the pain. * I personally reviewed the x-rays and MRI of her lumbar spine. These show disc space collapse at L1-2 with a well-healed fusion from L2-5. MRI shows severe central and lateral recess stenosis at L1 to. * 67-year-old female with junctional lumbar spinal stenosis and severe pain with claudication. We discussed continued conservative care with epidural injections versus surgical treatment. She would like to proceed with surgery. * She understands the goal of surgery is primarily to improve her leg pain as well as standing and walking endurance. * I discussed the risks of surgery including bleeding, infection, paralysis, muscle weakness, CSF leak, bowel or bladder dysfunction, incomplete resolution of pain or numbness, DVT/PE, heart attack, stroke, and other unforeseen medical and anesthesia complications. I also explained that the typical romero ccess rates for operation such as this fall in the 80-85% range, and that there is a small chance that there will be no improvement, or even less commonly, worsening of the preoperative symptoms. Sheverbalized understanding of the risks, benefits, and alternatives to surgical treatment. The plan will be for revision L1-2 laminectomy and fusion. Surgery was scheduled for March 21 at [facility]. * This note was dictated using speech recognition software and was not corrected for spelling or grammatical errors. [id number] Work Phone: Hospital Discharge instructions* Activity:activity with assistance and PROGRESSIVE MOBILIZATION W/WALKER OR CANE. May shower. WHEN NO DRAINAGE FROM INCISIONAL AREA FOR [address] until follow-up visit. No pushing, pulling, or lifting objects greater than 10 pounds. Weight-bearing Instructions: weight-bearing as tolerated. Other activity instructions: NO EXCESSIVE BENDING/TWISTING, NO HEAVY HOUSE/YARD WORK. * Wound Care 1:Wound Site: Back (Lumbar Spine)Wound Type: surgical incisionChange Dressing: daily, UNTIL NO LONGER DRAINING, THEN YOU CAN LEAVE THE DRSG. OFFCleanse With: soap and water, ONCE THE INCISION IS NO LONGER DRAINING AND YOU ARE ABLE TO SHOWER.Cover With: abdominal dressingTape With: paper tapeInstructions: no lotions, creams, or tub soaksOther Instructions: If there is a prineo dressing (Strip) over your incision, do not remove it with your dressing changes. The dressing will slowly lift away from the skin over time. * Additional Orders:Additional Instructions: MAY USE HEAT OR ICE TO YOUR BACK NEEDED FOR COMFORT * Call Provider If:Breathing faster than normal. Breathing harder than normal or having retractions. Temperature is greater than 102 degrees. Chills. Urinating less than 4 times per day. Acting very sleepy and difficult to awaken. Vomiting (throwing up) and not able to eat or drink for 12 hours. Any new concerning symptoms. ANY CONCERNS OVER APPEARANCE OF INCISION PLEASE CALL IN ADVANCE WHEN RUNNING LOW ON PAIN MEDS. A PRESCRIPTION EITHER WILL NEED TO BE ELECTRONICALLY SENT OR PICKED UP IN ONE OFTHE OFFICES. * Care Recommendation:I recommend that INPATIENT care is required at: SkilledEstimated Stay: Convalescent stay < 30 daysPrognosis: GoodRehab Potential/Function: Improve * Therapy Orders:Occupational Therapy Orders: [facility]), 1-3 times/weekPhysical Therapy Orders: [facility]), 1-3 times/week * Provider Follow Up:Physician To Follow at Skilled/Rehab: Attending Physician at Skilled/Rehab * Follow Up Appointment 1:Physician/Dept/Service: Dr. Markos Dos Santos/ Orthopaedic Surgery/ SpineReason for Referral: Postoperative Follow-Up AppointmentScheduled Date/Time: 22-Feb-2021 11:45[facility] [address] [facility] [address], [phone] Number: Office: (Emma, Sec.) - [phone]: Please Call Pretty Yu RN at [phone] For Any Post-Op Questions * Safety:Siderails: PRNRestraints: noSitter: noFall Risk: weakness * Incision 1:Location: posterior spineDressing: foam tapeDressing Change Frequency: leave in place until saturday then ABDs with paper tape [facility] Reason for Referral: L3-L4 laminectomy, L2-5 PSIF, application of bone allograft [facility] Chief Complaint POVpovVirtual Visit to discus lumbar painFUV- low back painFUV- Back painPost op Post op Summary Purpose Family History No Family History Records FoundNo Family History Records FoundNo Family History Records FoundNo Family History Records Found Advance Directives No Advanced Directives Records FoundNo Advanced Directives Records FoundNo Advanced Directives Records FoundNo Advanced Directives Records Found Reason for Referral Specialty Diagnoses / Procedures Referred By Contac t Referred To Contact Radiology Diagnoses Lumbar pain Procedures XR lumbar spine 2-3 views Maggie Banuelos, [facility] [address] [place] [address] Referral ID Status Reason Start Date Expiration Date Visits Requested Visits Authorized [id number] Authorized Perform Procedure 3 06/06/2024 1 1 Additional Source Comments <item> Privacy Markings (unrecogniz ed section and content) Section Author: Milena Ugarte PROHIBITION ON REDISCLOSURE OF CONFIDENTIAL INFORMATION This notice accompanies a disclosure of information concerning a client made to you with the consent of such client. INFORMATION SOURCE (unrecogn ized section and content) DATE CREATED AUTHOR AUTHOR'S ORGANIZ ATION 04/20/2023 [facility] DATE CREATED AUTHOR AUTHOR'S ORGANIZ ATION 05/10/2023 [facility] DATE CREATED AUTHOR AUTHOR'S ORGANIZ ATION 06/11/2023 [facility] Reason for Visit (unrecogniz ed section and content) Care Teams (unrecognized sec tion and content) FOR RECORDS PERTAINING TO PATIENTS WHO ARE OR HAVE BEEN ENROLLED IN A CHEMICAL DEPENDENCY/SUBSTANCEABUSE PROGRAM, SOME INFORMATION MAY BE OMITTED. This clinical summary was aggregated from multiple sources. Caution should be exercised in using it in the provision of clinical care. This summary normalizes information from multiple sources, and as a consequence, information in this document may materially change the coding, format and clinical context of patient data. In addition, data may be omitted in some cases. CLINICAL DECISIONS SHOULD BE BASED ON THE PRIMARY CLINICAL RECORDS. [facility] [employer] [facility]. provides no warranty or guarantee of the accuracy or completeness of information in this document.
--- NOTE | 2023-08-16 07:24 | PFT ---
INTRODUCTION: The patient is a 67-year-old female who presents for pulmonary function studies secondary to a diagnosis of asthma. Respiratory therapy reported good patient effort. Bronchodilators were used during testing. INTERPRETATION: Forced expiration spirometry demonstrated no evidence of a large airways obstructive ventilatory defect. There was no significant response to aerosolized bronchodilators. Spirograms are of good quality and plateau normally. Body plethysmography was performed and revealed lung volumes to be within normal limits. Diffusing capacity by single breath CO was also within normal limits. IMPRESSION: Grossly normal pulmonary function studies.
== END | disposition home or self-care (01) ==
LOC: PSN 09:52
PROVIDERS: PCP Family Medicine; Referring Provider Internal Medicine Critical Care Medicine; Visit Provider Internal Medicine Critical Care Medicine
DX: J45.909 Unspecified asthma, uncomplicated (principal)
CPT/HCPCS: 94060; 94726; 94729

== ENCOUNTER → 2023-08-20 | Outpatient (CLI) | payer MEDICARE, MEDICAID, SELFPAY ==
[2023-08-20 11:38] VITALS: PULSE 103; PULSE 107; PULSE 116; PULSE 78; PULSE 86; PULSE 87; PULSE 90; PULSE 97; O2SAT 95; O2SAT 96; O2SAT 97; O2SAT 98
--- NOTE | 2023-08-21 10:12 | WT_ITS ---
PSN 6 Minute Walk Test 6 Minute Walk Test 6 Minute Walk Test: 6 Minute Walk Test PSN:6-Minute Walk Test Start: 08/20/23 11:37 Freq: Status: Active Protocol: RESP.6MINW Document 08/20/23 11:38 [facility] (Rec: 08/20/23 11:40 [facility] [id number]) 6 Minute Walk Test Date Performed 08/20/23 Time Performed 11:15 Height 5 ft 2 in Weight: 137 lb Weight in Pounds 137.[address]: Raad Garrett Assistive device used: None Pre-test Oxygen Delivery Method Room Air Pulse Ox 97 Pulse Rate (60-100) 78 Dyspnea Denisha Scale (0-10) 0 1st minute Oxygen Delivery Method Room Air Pulse Ox 96 Pulse Rate (60-100) 86 Dyspnea Denisha Scale (0-10) 0 Number of Rests Taken 0 2nd minute Oxygen Delivery Method Room Air Pulse Ox 95 Pulse Rate (60-100) 90 Dyspnea Denisha Scale (0-10) 1 Number of Rests Taken 0 3rd minute Oxygen Delivery Method Room Air Pulse Ox 96 Pulse Rate (60-100) 97 Dyspnea Denisha Scale (0-10) 1 Number of Rests Taken 0 4th minute Oxygen Delivery Method Room Air Pulse Ox 97 Pulse Rate (60-100) 103 H Dyspnea Denisha Scale (0-10) 2 Number of Rests Taken 0 Reported Symptoms Increased Work of Breathing 5th minute Oxygen Delivery Method Room Air Pulse Ox 96 Pulse Rate (60-100) 107 H Dyspnea Denisha Scale (0-10) 2 Number of Rests Taken 0 Reported Symptoms Increased Work of Breathing 6th minute Oxygen Delivery Method Room Air Pulse Ox 96 Pulse Rate (60-100) 116 H Dyspnea Denisha Scale (0-10) 2 Number of Rests Taken 0 Reported Symptoms Increased Work of Breathing Post-test Oxygen Delivery Method Room Air Pulse Ox 98 Pulse Rate (60-100) 87 Dyspnea Denisha Scale (0-10) 0 Full Laps Walked 21 Partial Lap, Number of Tiles Walked 0 Total Distance Walked (ft) 1239 Interpretation Interpretation: The patient ambulated 1239 feet over the course of 6 minutes beginning on room air without assistive devices. Pretesting oxygen saturation was noted to be 97% on room air. With ambulation, the anupam oxygen saturation was 95%. There was no significant exertional oxygen desaturation. Recommendations Recommendations: There is no indication for the use of supplemental oxygen at this time.
== END | disposition home or self-care (01) ==
LOC: PSN 11:15
PROVIDERS: PCP Family Medicine; Referring Provider Internal Medicine Critical Care Medicine; Visit Provider Internal Medicine Critical Care Medicine
DX: J45.909 Unspecified asthma, uncomplicated (principal)
CPT/HCPCS: 94618

== ENCOUNTER → 2023-10-29 | Outpatient (CLI) | payer MEDICARE, MEDICAID, SELFPAY ==
--- NOTE | 2023-10-29 14:42 | CT_ITS ---
STUDY: CTA HEAD AND NECK WITH CONTRAST REASON FOR EXAM: Female, 68 years old. DIPLOPIA RADIATION DOSAGE (If Supplied By Facility): CTDIvol = ( 28.01 ) mGy, DLP = ( 1449.58 ) mGycm TECHNIQUE: CT angiography was performed with a multi-detector CT scanner. Data acquisition was obtained from the skull base through the vertex following intravenous administration of IV 100mL Isovue-370. MIP images were reconstructed from the axial data set. Post-processing of the angiographic images was performed, with multiplanar reformation and 3D reconstruction. Individualized dose optimization techniques were used for this CT. COMPARISON: No relevant priors. FINDINGS: Normal bilateral petrous carotid arteries. There is calcified plaque formation of the right cavernous carotid artery, without a cross-sectional luminal stenosis. There is calcified plaque formation of the left cavernous carotid artery, without a cross-sectional luminal stenosis. Normal right A1 segments of the anterior cerebral artery. Normal left A1 segments of the anterior cerebral artery. Normal intact anterior communicating artery (ACOM). Normal bilateral A2 segments of the anterior cerebral arteries. Normal right M1 and M2 segments of the middle cerebral arteries, with a normal M1 bifurcation. Normal left M1 and M2 segments of the middle cerebral arteries, with a normal M1 bifurcation. Normal right posterior communicating artery (PCOM). Normal left posterior communicating artery (PCOM). Normal bilateral vertebral arteries. Normal basilar artery with a normal basilar bifurcation. The visualized bilateral superior cerebellar (SCA) arteries are normal. Normal bilateral P1, P2 and visualized P3 segments of the posterior cerebral arteries. There is no demonstrated aneurysm of the [place]. There is no demonstrated abnormality of the visualized brain. AORTIC ARCH: Normal visualized aortic arch. Normal origins of the brachiocephalic, left common carotid, and left subclavian arteries. RIGHT CAROTID ARTERIES: Normal right common carotid artery (CCA). Normal right common carotid bulb. Normal origin of the right internal carotid (ICA) artery without a hemodynamically significant stenosis. Normal visualized cervical portion of the right internal carotid artery. Normal origin of the right external carotid artery (ECA). LEFT CAROTID ARTERIES: Normal left common carotid artery (CCA). Normal left common carotid bulb. Normal origin of the left internal carotid (ICA) artery without a hemodynamically significant stenosis. Normal visualized cervical portion of the left internal carotid artery. Normal origin of the left external carotid artery (ECA). VERTEBRAL ARTERIES: Normal bilateral vertebral arteries. CT/CTA Head AND Neck W/ Contrast IMPRESSION: Normal CTA Head and neck with contrast. Electronically Signed: Regan Sutton MD at 16:28 EDT ,
[2023-10-29 15:08] LABS: CREATININE FINGERSTICK < 1.0 mg/dL (0.55-1.02); EGFR FINGERSTICK > 60.0000 mL/min (>60)
== END | disposition home or self-care (01) ==
LOC: CT 14:40
PROVIDERS: PCP Family Medicine; Referring Provider Ophthalmology; Visit Provider Ophthalmology
DX: H53.2 Diplopia (principal); H57.02 Anisocoria; H02.421 Myogenic ptosis of right eyelid
CPT/HCPCS: 70496; 70498; Q9967

== ENCOUNTER → 2024-06-30 | Outpatient (CLI) | payer MEDICARE, SELFPAY ==
--- NOTE | 2024-06-30 13:41 | BI_ITS ---
MAMMOGRAPHY - BILATERAL SCREENING REASON FOR EXAM: Female, 68 years old. Routine annual screening examination. PERTINENT HISTORY: Non-contributory. History of remote left excisional breast biopsy. TECHNIQUE: Digital bilateral breast lucinda (3D mammographic acquisition) in the CC and MLO projections. 2-D mediolateral oblique (MLO) and craniocaudad (CC) views of both breasts were obtained. CAD: Full Field Digital Mammography with Computer Added Detection was performed. COMPARISON: Comparison is made with prior study June 11, 2023 and June 04, 2022. FINDINGS: Breast Composition: The breasts are heterogeneously dense, which may obscure small masses. There are no dominant masses or suspicious calcifications. No other significant abnormalities are identified. There has been no significant change since the prior study. BI/SCRN MAMM (CAD)W/LUCINDA BILAT IMPRESSION: Stable bilateral screening mammogram. Yearly follow-up mammogram recommended. (A) ASSESSMENT CATEGORY: BIRADS Category 1: Negative. A letter regarding these results will be sent to the patient by the facility within 30 days. Approximately 10% of breast cancers are not detected by mammography. A normal mammogram should not delay biopsy of a clinically suspicious abnormality. [id number] Electronically Signed: Dimitri Ordonez MD at 14:30 EST ,
== END | disposition home or self-care (01) ==
LOC: OPBI 13:40
PROVIDERS: PCP Family Medicine; Referring Provider Family Medicine; Visit Provider Family Medicine
DX: Z12.31 Encounter for screening mammogram for malignant neoplasm of breast (principal)
CPT/HCPCS: 77063; 77067

== ENCOUNTER 2024-08-07 07:22 | Day surgery (SDC) | payer MEDICARE, MEDICAID, SELFPAY ==
[2024-08-07] VITALS (8 sets, daily range): BP systolic 104–120; BP diastolic 62–78; PULSE 71–88; RESP 16; TEMP 36.1–36.9; O2SAT 93–96; BMI 26.6
--- NOTE | 2024-08-07 08:06 | PRE.ANES_ITS ---
ASA Classification* ASA Classification ASA Classification: 2 Assessment & Plan Anesthesia* Anesthesia Assessment Anesthesia Assessment: Discussed sedation and/or anesthesia options, risks, benefits, and alternatives with patient/parents/legal guardian/POA. Questions invited. The patient/parents/legal guardian/POA seems to understand and agrees to proceed with anesthesia plan. Reviewed the physical assessment, medical history, allergy history and patient home medications list prior to surgery/procedure/anesthetic and documented any changes. Performed airway and anesthesia risk assessments. Anesthesia Type Anesthesia Type: MAC History Source History Obtained from:: Patient and Chart Anesthesia Focused Assessment* Temperature: 97.3 F Pulse Rate: 88 Blood Pressure: 120/78 Respiratory Rate: 16 Pulse Ox: 95 Oxygen Delivery Method: Room Air Airway Assessment Mouth opens: >3 cm Mallampati Score: II Teeth Condition: Caps/Crowns (Patient has 1 crown. It is tight.), Chipped/Broken (Multiple chipped teeth.) and Missing (Multiple missing teeth.) Neck Range of motion (ROM): Full ROM Focused Labs Anesthesia Preop lab: CBC WBC 5.9 K/mm3 (4.4-11.0) 08/06/23 11:27 RBC 4.23 M/mm3 (4.2-5.4) 08/06/23 11:27 Hgb 13.6 g/dL (12.0-15.0) 08/06/23 11:27 Hct 43.5 % (37-47) 08/06/23 11:27 Plt Count 263 K/mm3 (150-450) 08/06/23 11:27 CHEMISTRY Potassium 3.8 mmol/L (3.5-5.1) 06/11/23 13:25 Sodium 142 mmol/L (136-145) 06/11/23 13:25 Magnesium 2.0 mg/dL (1.6-2.6) 08/02/22 07:22 BUN 14 mg/dL (7-18) 06/11/23 13:25 Creatinine 0.70 mg/dL (0.55-1.02) 06/11/23 13:25 Glucose 116 mg/dL (74-106) H 06/11/23 13:25 POC Glucose 102 mg/dL (70-110) 01/26/21 19:29 TSH 1.07 uIU/mL (0.358-3.74) 08/22/16 15:42 COAG PT 11.9 SECONDS (11.7-14.9) 01/26/21 18:52 Pre-Assessment Diagnosis/Proposed Procedure Planned Operative Procedure(s): COLONOCOPY Anesthesia History Anesthesia History - client technical support associate: Anesthesia History - client technical support associate Hx Hospitalization No 08/05/24 09:25 Any Problems With Anesthesia Yes: nausea 08/05/24 09:25 Cholinesterase deficiency No 08/05/24 09:25 You/Your Family Experience No 08/05/24 09:25 fever (hyperthermia) with Relationship Recent Exposure to Contagious No 08/07/24 07:45 Disease Does patient have nerve No 08/05/24 09:25 stimulator Patient instructed to have device shut off --Does patient have Pacemaker No 08/07/24 07:45 or ICD? When Was Last Pacemaker Check QUESTION #4 FULL TEXT: You/Your Family Experience fever (hyperthermia) with Anesthesia Last Oral Intake Last Oral intake: Last Oral Intake NPO since 23:00 08/07/24 07:45 Meds taken in AM with sips of Yes 08/07/24 07:45 water? Meds patient instructed to see med list 08/07/24 07:45 take am of surgery Any additional information?: Yes Meds taken in AM with sips of water?: Yes PONV PONV - client technical support associate: PONV - client technical support associate Female Yes 08/05/24 09:25 HX of Motion Sickness No 08/05/24 09:25 HX of N/V After Surgery Yes 08/05/24 09:25 Non-Smoker Yes 08/05/24 09:25 Duration of Surgery greater No 08/05/24 09:25 than 60 minutes Number of Risk Factors 3 08/05/24 09:25 PONV Score Moderate Risk 08/05/24 09:25 Height & Weight Height & Weight: Anesthesia: Height & Weight Height 5 ft 2 in 08/07/24 07:45 Weight: 66 kg 08/07/24 07:45 Body Mass Index (BMI) 26.6 08/07/24 07:45 Respiratory Assessment Respiratory Assessment - client technical support associate: Respiratory Tract Infection Hx - client technical support associate Hx Respiratory Tract Infection No 08/05/24 09:25 STOP Sleep Apnea STOP Sleep Apnea - client technical support associate: STOP Sleep Apnea - client technical support associate Hx Hypertension Yes: CONTROLLED ON MED 08/05/24 09:25 Hx Sleep Apnea No 08/05/24 09:25 CPAP BIPAP Do you snore loudly (louder No 08/05/24 09:25 than talking or can be heard Do you often feel tired/ No 08/05/24 09:25 fatigued/ sleepy during daytime? Has anyone observed you stop No 08/05/24 09:25 breathing during sleep? STOP Results Negative 08/05/24 09:25 QUESTION #5 FULL TEXT : Do you snore loudly (louder than talking or can be heard through closed doors)? 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 Specify any problems Hx of Preganancy in last 3 No 08/05/24 09:25 Months Nurse Filling Out Transfusion VCHRISTIN 08/05/24 09:25 & Questions: Date: 08/05/24 08/05/24 09:25 Time: 09:08/05/24 09:25 Patient unable to answer at this time (ie. confused, unrespo /Reproduction History /Reproductive History - client technical support associate: /Reproductive Hx- client technical support associate Hx Now Gestational Age (in weeks): EDC: Hx Hx Para Hx Section SAB PFSH Medical History Wears glasses Post-menopausal Anxiety History of steroid therapy Restless legs Migraine headache Injury of head and neck Difficulty swallowing History of IBS Gastric reflux Non-smoker Shortness of breath on exertion Leg cramps Hypertension Positive colorectal cancer screening using Cologuard test Bilateral shoulder pain Aftercare following right elbow joint replacement surgery Dizziness Fall Depression Contusion of hand Contusion of right shoulder region Concussion Melanoma GERD (gastroesophageal reflux disease) Osteopenia IBS (irritable bowel syndrome) Hypoglycemia Low calcium levels Anxiety and depression child Difficulty balancing Incontinence Back pain Asthma Knee pain Hay fever Arthritis Home Medications ?Medication ?Instructions ?Recorded ?Last Taken ?Type lansoprazole 30 mg capsule,delayed 30 mg PO DAILY Gerd 02/06/14 08/04/19 08:00 History release 30 mg ascorbic acid (vitamin C) 1,000 mg 1,000 mg PO DAILY 07/31/17 Unknown History tablet garlic 1 tab PO DAILY 07/31/17 Unknown History amlodipine 10 mg tablet 10 mg PO DAILY #30 tabs 05/17/21 08/07/24 Rx Lactobacillus acidophilus 1 tab PO DAILY 07/30/23 Unknown History (Acidophilus chewable tablet) ashwagandha extract 120 mg capsule 120 mg PO DAILY 07/30/23 Unknown History cinnamon bark 500 mg capsule 500 mg PO DAILY 07/30/23 Unknown History (Cinnamon) cranberry 400 mg capsule 400 mg PO DAILY 07/30/23 Unknown History cyclobenzaprine 10 mg tablet See Rx Instructions PO .COMPLEX 07/30/23 Unknown History magnesium oxide 400 mg PO TID 07/30/23 Unknown History melatonin 5 mg capsule See Rx Instructions PO DAILY 07/30/23 Unknown History multivitamin (One Daily 1 tab PO DAILY 07/30/23 Unknown History Multivitamin tablet) mpbbosqvwiky-mvppgloe-qpjetj 1 tab PO DAILY 07/30/23 Unknown History tablet (Vision Plus Lutein tablet) omega 7-fau-iwl-fish oil 1,200 mg 1 cap PO DAILY 07/30/23 Unknown History (144 mg-216 mg) capsule (Fish Oil) pramipexole 0.125 mg tablet 0.25 mg PO QHS 07/30/23 Unknown History quercetin 500 mg capsule 250 mg PO DAILY 07/30/23 Unknown History sumatriptan succinate 100 mg tablet 100 mg PO .COMPLEX 07/30/23 Unknown History trazodone 50 mg tablet 50 mg PO QHS 07/30/23 Unknown History venlafaxine 75 mg tablet 75 mg PO BID Depression 07/30/23 Unknown History vitamin B complex 1 tab PO DAILY 07/30/23 Unknown History acetaminophen 500 mg tablet 500 mg PO Q6H PRN pain 03/11/24 Unknown History (Tylenol Extra Strength) docusate sodium 50 mg capsule 100 mg PO DAILY stool softner 03/11/24 Unknown History (Stool Softener) turmeric 400 mg capsule 400 mg PO DAILY 07/10/24 Unknown History apple cider vinegar 600 mg capsule 600 mg PO DAILY 08/05/24 Unknown History calcium carbonate (Kayla-Orrington 300 mg PO DAILY 08/05/24 Unknown History Heartburn Chew) inulin-sorbitol 2 gram chewable 1 tab PO DAILY 08/05/24 Unknown History tablet (Fiber Supplement (inulin)) Allergy/AdvReac Type Severity Reaction Status Date / Time chocolate flavor Allergy Severe Unknown Verified 08/07/24 07:44 tree nut (tree nuts) Allergy Severe OTHER Verified 08/07/24 07:44 house dust Allergy Intermediate Other Verified 08/07/24 07:44 tree and shrub pollen Allergy Intermediate Other Verified 08/07/24 07:44 cosmetic Allergy NEEDS Verified 08/07/24 07:44 FOLLOW-UP fexofenadine (From [facility]) Allergy Unknown Verified 08/07/24 07:44 pineapple Allergy Unknown Verified 08/07/24 07:44 adhesive tape AdvReac unknown Verified 08/07/24 07:44 amoxicillin (Amoxicillin) AdvReac Other Verified 08/07/24 07:44 atropine (From ) AdvReac trouble Verified 08/07/24 07:44 breathing avocado AdvReac UNKNOWN Verified 08/07/24 07:44 bupropion HCl (From AdvReac Other Verified 08/07/24 07:44 Wellbutrin) egg AdvReac Other Verified 08/07/24 07:44 erythromycin base AdvReac Diarrhea Verified 08/07/24 07:44 hyoscyamine (From ) AdvReac trouble Verified 08/07/24 07:44 breathing morphine AdvReac Itching Verified 08/07/24 07:44 phenobarbital (From ) AdvReac trouble Verified 08/07/24 07:44 breathing scopolamine (From ) AdvReac trouble Verified 08/07/24 07:44 breathing Family History Father Cancer skin cancer; basal cell Other Asthma Colon cancer Surgical History Hx of colonoscopy S/P laminectomy with spinal fusion History of laminectomy H/O left breast biopsy S/P breast lumpectomy Hx of knee surgery Social History household members: none current occupational status: retired and disabled Smoking Status: Never smoker alcohol intake: never substance use type: does not use what type of physical activity do you participate in: walking and bicycling frequency: 1-2 times per week seatbelt use: always do you feel safe at home: Yes additional social history: single Review of Systems (Anesthesia) ROS Narrative System reviewed and no additional complaints, except as documented.
--- NOTE | 2024-08-07 08:29 | PCM.HP.BLA ---
History and Physical Date of Admission: 08/07/24 Intake Vital Signs 09/09/2407:02 07/07/2413:28 07/10/2413:21 Height 5 ft 2 in 5 ft 2 in 5 ft 2 in Weight: 152 lb 2 oz 153 lb 4 oz BMI 27.8 28.0 BP 127/72 H Blood Pressure Location Rt brachial Position Sitting Respiration 18 Pulse 78 Pulse Source Monitor Temp 97.6 F L Temp Source Temporal Pulse Oximetry (%) 96 Oxygen Delivery Method room air Intake Visit Reasons: POSITIVE COLOGUARD Chief Complaint: positive cologuard Is patient in pain?: No Allergies house dust Allergy (Intermediate, Verified 07/10/24 13:22) Othertree and shrub pollen Allergy (Intermediate, Verified 07/10/24 13:22) Otherchocolate flavor Allergy (Verified 07/10/24 13:22) Unknowncosmetic Allergy (Verified 07/10/24 13:22) NEEDS FOLLOW-UPfexofenadine (From Ariadna) Allergy (Verified 07/10/24 13:22) Unknownnut - unspecified Allergy (Verified 07/10/24 13:22) NEEDS FOLLOW-UPpineapple Allergy (Verified 07/10/24 13:22) Unknownadhesive tape Adverse Reaction (Verified 07/10/24 13:22) unknownamoxicillin (Amoxicillin) Adverse Reaction (Verified 07/10/24 13:22) Otheratropine (From ) Adverse Reaction (Verified 07/10/24 13:22) trouble breathingavocado Adverse Reaction (Verified 07/10/24 13:22) UNKNOWNbupropion HCl (From Wellbutrin) Adverse Reaction (Verified 07/10/24 13:22) Otheregg Adverse Reaction (Verified 07/10/24 13:22) Othererythromycin base Adverse Reaction (Verified 07/10/24 13:22) Diarrheahyoscyamine (From ) Adverse Reaction (Verified 07/10/24 13:22) trouble breathingmorphine Adverse Reaction (Verified 07/10/24 13:22) Itchingphenobarbital (From ) Adverse Reaction (Verified 07/10/24 13:22) trouble breathingscopolamine (From ) Adverse Reaction (Verified 07/10/24 13:22) trouble breathing Medications ?Medication ?Instructions ?Recorded ?Confirmed ?Type lansoprazole 30 mg capsule,delayed 30 mg PO DAILY Gerd 02/06/14 07/10/24 History release ascorbic acid (vitamin C) 1,000 mg 1,000 mg PO DAILY 07/31/17 07/10/24 History tablet garlic 1 tab PO BID 07/31/17 07/10/24 History amlodipine 10 mg tablet 10 mg PO DAILY #30 tabs 05/17/21 07/10/24 Rx Lactobacillus acidophilus 1 tab PO DAILY 07/30/23 07/10/24 History (Acidophilus chewable tablet) ashwagandha extract 120 mg capsule mg PO DAILY 07/30/23 07/10/24 History cinnamon bark 500 mg capsule 500 mg PO DAILY 07/30/23 07/10/24 History (Cinnamon) cranberry 400 mg capsule 400 mg PO DAILY 07/30/23 07/10/24 History cyclobenzaprine 10 mg tablet See Rx Instructions PO .COMPLEX 07/30/23 07/10/24 History magnesium oxide 400 mg PO BID 07/30/23 07/10/24 History melatonin 5 mg capsule See Rx Instructions PO DAILY 07/30/23 07/10/24 History multivitamin (One Daily 1 tab PO DAILY 07/30/23 07/10/24 History Multivitamin tablet) nxalqgwzcsqk-mlbghpkt-iyrffy 1 tab PO DAILY 07/30/23 07/10/24 History tablet (Vision Plus Lutein tablet) omega 7-hxx-cfq-fish oil 1,200 mg cap PO 07/30/23 07/10/24 History (144 mg-216 mg) capsule (Fish Oil) pramipexole 0.125 mg tablet mg PO QHS 07/30/23 07/10/24 History quercetin 500 mg capsule 250 mg PO 07/30/23 07/10/24 History sumatriptan succinate 100 mg tablet 100 mg PO .COMPLEX 07/30/23 07/10/24 History trazodone 50 mg tablet 50 mg PO QHS 07/30/23 07/10/24 History venlafaxine 75 mg tablet 75 mg PO BID Depression 07/30/23 07/10/24 History vitamin B complex 1 tab PO DAILY 07/30/23 07/10/24 History acetaminophen 500 mg tablet 500 mg PO Q6H PRN 03/11/24 07/10/24 History (Tylenol Extra Strength) docusate sodium 50 mg capsule 100 mg PO DAILY stool softner 03/11/24 07/10/24 History (Stool Softener) turmeric 400 mg capsule mg PO 07/10/24 07/10/24 History Have you fallen in the past year?: No PFSH Medical History (Updated 07/10/24 @ 13:21 by Whitney Johnson LPN) Positive colorectal cancer screening using Cologuard test Bilateral shoulder pain Aftercare following right elbow joint replacement surgery Dizziness Fall Depression Contusion of hand Contusion of right shoulder region Concussion Melanoma GERD (gastroesophageal reflux disease) Osteopenia IBS (irritable bowel syndrome) Hypoglycemia Low calcium levels Anxiety and depression child Difficulty balancing Incontinence Back pain Asthma Knee pain Hay fever Arthritis Surgical History S/P laminectomy with spinal fusion History of laminectomy H/O left breast biopsy S/P breast lumpectomy Hx of knee surgery Family History Father Cancer skin cancer; basal cellOther Asthma Colon cancer Social History household members: none current occupational status: retired and disabled Smoking Status: Never smoker alcohol intake: never substance use type: does not use what type of physical activity do you participate in: walking and bicycling frequency: 1-2 times per week seatbelt use: always do you feel safe at home: Yes additional social history: single HPI HPI HPI: Patient is a 68-year-old female here for positive Cologuard. Her last colonoscopy was in 2018. She denies any symptoms. She reports no abdominal pain or blood in the stool. ROS General General: No weight change, appetite, fatigue, colon cancer, breast cancer or weakness HEENT HEENT: Yes difficulty swallowing; No eye injury, eye surgery, swollen glands or hoarseness Endo Endocrine: No thyroid disease, diabetes mellitus, thyroid cancer, Hair loss, heat intolerance or cold intolerance Skin Skin: No rash or changing moles Musc Musculoskeletal: Yes back problems and arthritis; No rheumatoid arthritis, gout or joint pain Cardio Cardiovascular: Yes high blood pressure; No murmur, pacemaker, heart disease, atrial fibrillation, heart attack, heart stent, palpitations, shortness of breat with exertion or chest pain Psych Psychiatric: Yes depression and anxiety; No hearing voices Resp Respiratory: No shortness of breath, No sleep apnea, No cough, No COPD, No asthma, No emphysema and No wheezing Gastro Gastrointestinal: No abdominal pain, No nausea or vomiting, No diarrhea, No constipation, No blood in stool, Yes acid reflux, Yes hemorrhoids, No ulcers, No gallbladder problem and No black,tarry stools [place]ker Hematologic: Yes blood thinners, No blood disorders, No bleeding, No anemia and No blood clots Additional Details: fish oil/ tumeric Neuro Neurologic: No numbness, No tingling and No weakness Exam Const General: cooperative Orientation: alert and oriented x3 HENMT Head: normal to inspection Neck Neck: normal visual inspection and full ROM Chest Chest palpation & inspection: normal inspection of the chest Resp Effort & Inspection: normal respiratory effort Auscultation: clear to auscultation bilaterally Cardio Rate: regular rate Rhythm: regular rhythm GI Inspection: non-distended Palpation: soft and nontender Skin General: no rashes or lesions noted Neuro General: patient alert and patient oriented x3 Extrem General: full ROM Psych Appearance: grossly normal Mental Status: mental status grossly normal Assessment and Plan Assessment and Plan (1) Positive colorectal cancer screening using Cologuard test: Status: Acute Plan: I explained endoscopy in detail to the patient. I explained the risks including but not limited to stroke or heart attack with anesthesia, perforation of the GI tract, bleeding, infection. I explained that any of these could necessitate further emergency surgery. The patient understands and all questions were answered sufficiently. The patient wishes to proceed with procedure. Andrés Brizuela MD Pager: [facility] [address] [place] [address], [address] [place] [address] Office: I have examined the patient and the H&P has been reviewed. There are no clinical changes since date of exam.
--- NOTE | 2024-08-07 09:20 | OP.COLON_ITS ---
Patient Name: Kim Estrada Procedure Date: 08/07/2024 8:34 AM Date of : 1955 Age: 68 Procedure: Colonoscopy Indications: Positive Cologuard test Providers: Andrés Brizuela MD Referring MD: Glory Deal Medicines: Propofol per Anesthesia Patient Profile: This is a 68 year old female. Refer to note in patient chart for documentation of history and physical. Last Colonoscopy: several years ago. Complications: No immediate complications. Procedure: Pre-Anesthesia Assessment: - Prior to the procedure, a History and Physical was performed, and patient medications and allergies were reviewed. The patient's tolerance of previous anesthesia was also reviewed. The risks and benefits of the procedure and the sedation options and risks were discussed with the patient. All questions were answered, and informed consent was obtained. Prior Anticoagulants: The patient has taken no anticoagulant or antiplatelet agents. After reviewing the risks and benefits, the patient was deemed in satisfactory condition to undergo the procedure. After I obtained informed consent, the scope was passed under direct vision. Throughout the procedure, the patient's blood pressure, pulse, and oxygen saturations were monitored continuously. The Colonoscope was introduced through the anus and advanced to the cecum, identified by appendiceal orifice and ileocecal valve. The colonoscopy was technically difficult and complex due to significant looping. The patient tolerated the procedure well. The quality of the bowel preparation was good. The ileocecal valve, appendiceal orifice, and rectum were photographed. Scope In: 8:42:46 AM Scope Withdrawal Time 0 hours 3 minutes 55 seconds Scope Out: 9:15:33 AM Total Procedure Duration Time 0 hours 32 minutes 47 seconds Findings: The entire examined colon appeared normal on direct and retroflexion views. Impression: - The entire examined colon is normal on direct and retroflexion views. - No specimens collected. Recommendation: - Discharge patient to home. - Resume previous diet. - Continue present medications. - Repeat colonoscopy is not recommended due to current age (66 years or older) for screening purposes. Procedure Code(s): --- Professional --- 35730, Colonoscopy, flexible; diagnostic, including collection of specimen(s) by brushing or washing, when performed (separate procedure) Diagnosis Code(s): --- Professional --- R19.5, Other fecal abnormalities CPT copyright 2021 [employer]. All rights reserved. The codes documented in this report are preliminary and upon rough rounder review may be revised to meet current compliance requirements. Andrés Brizuela MD 08/07/2024 9:19:39 AM This report has been signed electronically. Number of Addenda: 0 Note Initiated On: 08/07/2024 8:34 AM
--- NOTE | 2024-08-07 09:20 | OP.CCLET_ITS ---
08/07/2024 Glory Deal [place] [id number] [address] Re : Colonoscopy procedure for Kim Estrada Dear Dr. Deal This procedure was performed on Wednesday, August 07, 2024. My impressions and recommendations are as follows: Impressions : - The entire examined colon is normal on direct and retroflexion views. - No specimens collected. Recommendations : - Discharge patient to home. - Resume previous diet. - Continue present medications. - Repeat colonoscopy is not recommended due to current age (66 years or older) for screening purposes. My findings are described in the full procedure note, which is enclosed. If I can be of further assistance, please feel free to contact me at Doctor phone number(s): , Work: . Sincerely, Andrés Brizuela MD 08/07/2024 9:19:39 AM This report has been signed electronically.
--- NOTE | 2024-08-07 09:27 | PCM.POST.ANE ---
Anesthesia: Postop Eval I Current Vital Signs Temperature: 97 F Pulse Rate: 79 Blood Pressure: 120/65 Respiratory Rate: 16 Pulse Ox: 96 Oxygen Delivery Method: Room Air Assessment Airway patent: Yes Spontaneous unlabored respirations: Yes Mental status: Awake and Calm nausea: No Vomiting: No Anesthesia Complication: No Fluid Hydration Crystalloid volume administer (ml): 90 Total IV fluid infused: 90 Progress Note Anesthesia document: Postop Eval 1 completed: Yes
--- NOTE | 2024-08-07 09:36 | PCM.POSTANE2 ---
Anesthesia Postop Eval I Sum Postop Eval Completion status Anesthesia document: Postop Eval 1 completed: Yes Anesthesia Postop Eval I Summary Anesthesia Postop Eval I Summary: Anesthesia Postop Eval I: Assessment Summary Airway patent Yes 08/07/24 09:28 [email or web address] Spontaneous unlabored Yes 08/07/24 09:28 [email or web address] respirations Mental status Awake,Calm 08/07/24 09:28 [email or web address] nausea No 08/07/24 09:28 [email or web address] Vomiting No 08/07/24 09:28 [email or web address] Anesthesia Postop Eval I: Fluid Summary Crystalloid volume administer 90 08/07/24 09:28 [email or web address] (ml) Colloids volume administered ( ml) Blood Product volume administered (ml) Total IV fluid infused 90 08/07/24 09:28 [email or web address] Anesthesia Postop Eval I: Summary Notes Anesthesia Complication No 08/07/24 09:28 [email or web address] Anesthesia Complication Comment: Post-operative progress note Anesthesia: Postop Eval II Evaluation Mental status: Awake and Calm Pain Level: 0 nausea: No Vomiting: No Complications Anesthesia Complication: No
== END 2024-08-07 10:02 | disposition home or self-care (01) ==
LOC: EN 07:25 → AC 07:26
PROVIDERS: PCP Family Medicine; Referring Provider Family Medicine; Visit Provider Surgery
PROC: 0DJD8ZZ Inspection of Lower Intestinal Tract, Via Natural or Artificial Opening Endoscopic (ICD-10-PCS; CPT 45378; principal; 2024-08-07 08:25)
DX: R19.5 Other fecal abnormalities (principal); Z80.0 Family history of malignant neoplasm of digestive organs; Z79.01 Long term (current) use of anticoagulants; K21.9 Gastro-esophageal reflux disease without esophagitis; J45.909 Unspecified asthma, uncomplicated; I10 Essential (primary) hypertension; Z79.899 Other long term (current) drug therapy
CPT/HCPCS: G0121; A4216; J2405

== ENCOUNTER → 2024-11-13 | Outpatient (CLI) | payer MEDICARE, MEDICAID, SELFPAY | END | disposition home or self-care (01) | LOC: LABSPEC 14:30 | PROVIDERS: PCP Family Medicine; Visit Provider Family Medicine | DX: R30.0 Dysuria (principal); R35.0 Frequency of micturition | CPT/HCPCS: 87086; 87088 ==

== ENCOUNTER → 2024-12-24 | Outpatient (CLI) | payer MEDICARE, MEDICAID, SELFPAY ==
[2024-12-24 15:32] LABS: Absolute Lymphocyte Count 1.89 X10^3/uL (0.83-4.51); Absolute Neutrophil Count 5.1 X10^3/uL (2.0-7.7); Basophil# 0.04 X10^3/uL; Basophil% 0.5 % (0-1); Eosinophil# 0.08 X10^3/uL; Eosinophils% 1.1 % (0-5); Hematocrit 43.9 % (37-47); Hemoglobin 14.3 g/dL (12.0-15.0); Lymphocyte # 1.89 X10^3/ul (0.83-4.51); Lymphocyte % 24.9 % (19-41); Mean Corp Hgb Conc 32.6 g/dL (32-36); Mean Corpuscular Hgb 32.1 pg (27.0-32.0); Mean Corpuscular Volume 98.7 fL (81-99); Mean Platelet Vol. 11.8 fl (6.2-12.0); Monocyte% 6.6 % (0-10); NRBC Flagged by Analyzer 0 % (0-5); Neutrophil # 5.06 X10^3/uL (2.7-7.7); Neutrophil % 66.8 % (47-70); Platelet Count 215 K/mm3 (150-450); RBC Distribution Width CV 13.2 % (11.6-14.6); RBC Distribution Width SD 47.8 fl (35.1-43.9); Red Blood Count 4.45 M/mm3 (4.2-5.4); White Blood Count 7.6 K/mm3 (4.4-11.0)
[2024-12-24 16:05] LABS: ALB/GLOB Ratio 1.8 RATIO (0.9-2.4); AST(SGOT) 25 U/L (<=31); Alanine Aminotransfer ALT/SGPT 17 U/L (<=34); Albumin, Serum 4.6 g/dL (3.4-4.8); Alkaline Phosphatase 100 U/L (35-104); Anion Gap 14 (5-15); BUN 15 mg/dL (4-19); BUN/Creat Ratio 17.2 RATIO (10-20); Calcium,Total 10.2 mg/dL (7.6-11.0); Carbon Dioxide 21.5 mmol/L (21.0-32.0); Chloride 106 mmol/L (98-108); Creatinine, Serum 0.86 mg/dL (0.70-1.20); EST Glomerular Filtration Rate 72 (>60); Globulin 2.6 g/dL (2.2-4.2); Glucose 107 mg/dL (70-99); Potassium 4.2 mmol/L (3.3-5.1); Protein, Total 7.2 g/dL (5.9-8.4); Sodium Level 141 mmol/L (133-145); Total Bilirubin 0.28 mg/dL (0.00-1.30)
== END | disposition home or self-care (01) ==
LOC: MTLAB 11:33
PROVIDERS: PCP Family Medicine; Referring Provider Family Medicine; Visit Provider Family Medicine
DX: I10 Essential (primary) hypertension (principal); K21.9 Gastro-esophageal reflux disease without esophagitis
CPT/HCPCS: 36415; 80053; 85025

== ENCOUNTER 2025-01-09 10:16 | Emergency (ER) | payer MEDICARE, MEDICAID, SELFPAY ==
[2025-01-09 10:18] VITALS: BP 135/67; PULSE 82; RESP 14; TEMP 36.6; O2SAT 98; BMI 39.8
--- OUTSIDE RECORDS SUMMARY | 2025-01-09 11:08 | XMS RPT_ITS | CCD ---
Author Organization [facility] Care Team Providers Care Batch Tank Controller Name Role Phone Unknown, Pcp Unavailable Unavailable Ania Dos Santos Unavailable Unknown, Referring Provider Unavailable Unav ailable Dr. Glory Deal Primary Care Provider [phone] Dr. Glory Deal Referring Provider [phone] TYRESE Dinero Attending Provider Dr. Glory Deal Primary Care Provider [phone] Dr. Glory Deal Referring Provider TYRESE Dinero Attending Provider TYRESE Roman Attending Provider Dr. Sacha Post Attending Provider Dr. Benja Toscano Attending Provider Dr. Glory Deal Primary Care Provider [phone] Dr. Glory Deal Referring Provider [phone] Benja Toscano Attending Provider Dr. Sacha Post Attending Provider Dr. Glory Deal Primary Care Provider [phone] Mariana James Unavailable Unavailable Unavailable Dr. Ania Dos Santos Attending Aimee greenberg UNKNOWN, PCP Primary Care Unavailable Dr. Ania Dos Santos Attending Dr. Mariana Cardona Primary Care Unavailable Dr. Ania Dos Santos Attending Aimee James, Dr. Mariana Wood Primary Care Unavailable Lakisha, Ms. Maggie Hernandez Attending Unavadamion labrenea James, Dr. Mariana Wood Referring Unavailable Erika, Dr. Mariana Wood Primary Care Unavailable Levon, Dr. Ania Mock Attending Aimee Dos Santos, Dr. Ania Mock Referring Unavai lable UNKNOWN, PCP Primary Care Unavailable Levon, Dr. Ania Mock Attending Aimee Dos Santos, Dr. Ania Mock Referring Unavai lable UNKNOWN, PCP Primary Care Unavailable Levon, Dr. Ania Mock Attending Aimee greenberg Toscano, Dr. Yousif Referring Unavailable Malys, Dr. Mariana Wood Primary Care Unavailable Levon, Dr. Ania Mock Admitting Unavai lable Malys DO, Mariana Wood Primary Care Provider [phone] MAGGIE AUGUSTINE Attending Unavailable MARIANA JAMES Primary Care Unavailable Toyin, Dr. Holder Primary Care Provider [phone] Dr. Glory Deal Referring Provider TYRESE Roman Attending Provider Dr. Sacha Post Attending Provider Dr. Raad Garrett Attending Provider [phone] Dr. Raad Garrett Referring Provider Dr. Raad Garrett Other Provider Dr. Glory Deal Primary Care Provider [phone] Dr. Glory Deal Referring Provider TYRESE Roman Attending Provider Dr. Sacha Post Attending Provider Dr. Raad Garrett Attending Provider Dr. Raad Garrett Referring Provider [phone] Dr. Raad Garrett Other Provider Randall BOOTH USHER, BOOTH USHER-C Brisa Attending Provider Andrés Brizuela Attending Unavailable Glory Deal Primary Care Unavailable Miedel, Glory Referring Unavailable Miedel, Glory Referring Unavailable Marlon Curiel Attending Unavailable Miedel, Glory Primary Care Unavailable Andrés Brizuela Attending Unavailable Miedel, Glory Primary Care Unavailable Andrés Brizuela Consulting Unavailable Miedel, Glory Referring Unavailable Miedel, Glory Referring Unavailable Miedel, Glory Primary Care Unavailable Eric Carney Attending Unavailable Sacha Post Attending Unavailable Miedel, Glory Primary Care Unavailable Andrés Brizuela Attending Unavailable Miedel, Glory Primary Care Unavailable Miedel, Glory Referring Unavailable Miedel, Glory Primary Care Unavailable Miedel, Glory Attending Unavailable Miedel, Glory Primary Care Unavailable Miedel, Glory Attending Unavailable Miedel, Glory Referring Unavailable Miedel, Glory Referring Unavailable Miedel, Glory Primary Care Unavailable Miedel, Glory Attending Unavailable Allergies Allergy Classification Reported Allergen(s) Allergy Type Date of Onset Reaction(s) Facility [facility]io[facility] (2 sources) Morphine Drug Allergy Itching, Anaphylaxis [facility] (14 sources) Amoxicillin Drug Allergy 05-14-20 Other [facility] (14 sources) avocado allergenic extract Drug Allergy 05-15-20 UNKNOWN [facility] (15 sources) buPROPion; Translations: [bupropion HCl] Drug Allergy 05-14-20 Other [facility] (15 sources) Chocolate; Translations: [chocolate flavor] Allergy to substance 05-14-20 Unknown [facility] (14 sources) egg extract Drug Allergy 05-14-20 Other [facility] (16 sources) fexofenadine; Translations: [FEXOFENADINE] Drug Allergy 08-01-19 Other [facility] (16 sources) Morphine; Translations: [MORPHINE] Drug Allergy 05-14-20 Itching [facility] (1 source) Nuts (not including peanuts) Allergy to substance 05-14-20 Unknown [facility] Work Phone: (14 sources) pineapple Allergy to substance 05-14-20 Unknown [facility] (1 source) cosmetics Allergy to substance 05-14-20 21 Unknown [facility] Work Phone: (13 sources) house dust allergenic extract Drug Allergy 12-14-19 22 Other [facility] (14 sources) Tree and shrub pollen; Translations: [tree and shrub pollen] Allergy to substance 12-14-19 22 Other [facility] (14 sources) cosmetic; Translations: [cosmetic] Allergy to substance 02-16-20 22 NEEDS FOLLOW-UP [facility] (13 sources) nut - unspecified Allergy to substance 02-16-20 NEEDS FOLLOW-UP [facility] (2 sources) Azithromycin; Translations: [AZITHROMYCIN] Drug Allergy 04-01-20 23 [facility] Work Phone: (2 sources) buPROPion; Translations: [BUPROPION] Drug Allergy 07-14-20 16 [facility] Work Phone: (6 sources) Erythromycin; Translations: [ERYTHROMYCIN BASE] Drug Allergy 03-07-20 16 GI Upset [facility] Work Phone: (2 sources) HYDROmorphone; Translations: [HYDROMORPHONE] Drug Allergy 06-06-20 23 Anaphylaxis, Itching [facility] (2 sources) sodium nitrate; Translations: [SODIUM NITRATE] Drug Allergy 08-01-19 [facility] Work Phone: (2 sources) Triamcinolone; Translations: [TRIAMCINOLONE] Drug Allergy 03-29-20 20 [facility] Work Phone: (2 sources) Adhesive Tape-Silicones; Translations: [ADHESIVE TAPE-SILICONES] Drug Intolerance 03-29-20 20 Hives [facility] Work Phone: (5 sources) Adhesive Tape; Translations: [adhesive tape] Propensity to adverse reactions 08-06-19 24 unknown [facility] (4 sources) Atropine Drug Allergy 08-06-19 24 trouble breathing [facility] (4 sources) Hyoscyamine Drug Allergy 08-06-19 24 trouble breathing [facility] (4 sources) PHENobarbital Drug Allergy 08-06-19 24 trouble breathing [facility] (4 sources) Scopolamine Drug Allergy 08-06-19 24 trouble breathing [facility] (1 source) Amoxicillin Drug Allergy 08-07-19 [facility] (1 source) Atropine Drug Allergy 08-07-19 [facility] (1 source) avocado oil Drug Allergy 08-07-19 [facility] (1 source) egg extract Drug Allergy 08-07-19 [facility] (1 source) Erythromycin Drug Allergy 08-07-19 [facility] (1 source) fexofenadine Drug Allergy 08-07-19 [facility] (1 source) house dust allergenic extract Drug Allergy 08-07-19 [facility] (1 source) Hyoscyamine Drug Allergy 08-07-19 [facility] (1 source) Morphine Drug Allergy 08-07-19 [facility] (1 source) PHENobarbital Drug Allergy 08-07-19 [facility] (1 source) Scopolamine Drug Allergy 08-07-19 [facility] (1 source) tree nut, unspecified Drug allergy (disorder) 08-07-19 [facility] (1 source) pineapple Drug allergy (disorder) 08-07-19 [facility] Repository Medications Current Medications Medication Drug Class(es) Dates [...] containing acetaminophen to prevent possible liver damage. Comment on above: This product contain s acetaminophen. Do not use with any other product containing acetaminophen to prevent possible liver damage. [id number] 200 actuat albuterol 0.09 mg/actuat metered dose inhaler (4 sources) beta2-Adrenergic Agonist Start: 07-30-2023 take 1 puff(s) by inhalation every four hours Albuterol Sulfate Active 2 PUFF INHALATION Q4H July 30, 2023 1:00am amLODIPine 10 mg oral tablet (14 sources) Dihydropyridine Calcium Channel Mu Start: 05-17-2021 take 10 mg by mouth once daily Amlodipine Active 10 MG PO DAILY May 17, 2021 12:00am ascorbic acid 1000 mg oral tablet (14 sources) Vitamin C Start: 07-31-2017 take 1000 mg by mouth once daily Ascorbic Acid (Vitamin C) Active 1000 MG PO DAILY July 31, 2017 1:00am Ashwagandha Extract (4 sources) Start: 07-30-2023 take 1 mg by mouth once daily Ashwagandha Extract Active MG PO DAILY July 30, 2023 1:00am Start: 07-30-2023 take 1 mg by mouth once daily Ashwagandha Extract Active MG PO DAILY July 30, 2023 12:00am cetirizine hydrochloride 10 mg oral tablet (11 sources) Histamine-1 Receptor Antagonist Start: 09-08-2022 take 10 mg by mouth once daily Cetirizine Active 10 MG PO DAILY September 08, 2022 1:00am take 1 tablet by mouth once kali y cetirizine 10 mg oral tablet ; 1 tab(s) orally once a day Quantity: 0 Refills: 0 Ordered: 27-Jan-2021 Caroline Gilbert Generic Substitution Allowed chlorhexidine gluconate 1.2 mg/ml mouthwash (13 sources) Start: 03-15-2023 chlorhexidine (Peridex) 0.12 % solution rinse with 3 (THREE) teaspoonfuls for 30 seconds IN THE MORNING and IN THE EVENING after toothbrushing do not swallow 0 03/15/2023 Active Start: 03-15-2023 Hibiclens 4 % External Liquid USE DIRECTED. Quantity: 1 Refills: 0 Ordered: 15-Mar-2023 Evon Kaye Start : 15-Mar-2023 Active Start: 03-15-2023 take 15 mL by mouth in the morning Chlorhexidine Gluconate 0.12 % Mouth/Throat Solution RINSE MOUTH WITH 15ML (1 CAPFUL) FOR 30 SECONDS AM AND PM AFTER TOOTHBRUSHING. EXPECTORATE AFTER RINSING, DO NOT SWALLOW Quantity: 2 Refills: 0 Ordered: 15-Mar-2023 Evon Kaye Start : 15-Mar-2023 Active cinnamon bark 500 mg oral capsule (18 sources) Start: 07-30-2023 take 1 capsule by mouth once daily Cinnamon Bark (Cinnamon) 500 mg capsule Active 500 MG PO DAILY July 30, 2023 1:00am Start: 05-28-2018 End: 09-08-2022 take 1000 mg by mouth twice daily Cinnamon Bark Discontinued 1000 MG PO TWICE A DAY May 28, 2018 12:00am September 08, 2022 11:27am Cranberry (4 sources) Non-Standardized Food Allergenic Extract, Non-Standardized Plant Allergenic Extract Start: 07-30-2023 take 400 mg by mouth once daily Cranberry Active 400 MG PO DAILY July 30, 2023 1:00am administer with a meal Start: 07-30-2023 take 400 mg by mouth once kali y Cranberry Active 400 MG PO DAILY July 30, 2023 12:00am administer with a meal cyclobenzaprine hydrochloride 10 mg oral tablet (20 sources) Muscle Relaxant Start: 07-30-2023 take 0.5-1 tablets by mouth three times daily as needed Cyclobenzaprine Active 0 PO .COMPLEX July 30, 2023 1:00am 1/2 - 1 tab TID PRN orally; Start: 04-26-2023 take 1 tablet by brandin th every twelve hours cyclobenzaprine (Flexeril) 10 mg tablet Take 1 tablet (10 mg) by mouth every 12 hours. 0 04/26/2023 Active Start: 04-10-2023 take 1 tablet by brandin th every twelve hours Cyclobenzaprine HCl - 10 MG Oral Tablet TAKE 1 TABLET Every twelve hours Quantity: 30 Refills: 0 Ordered: 17-Apr-2023 Maggie Augustine PA-C Start : 10-Apr-2023 Active Start: 08-03-2017 End: 08-13-2017 take 5 mg by mouth three times daily Cyclobenzaprine Discontinued 5 MG PO THREE TIMES A DAY 30 August 03, 2017 1:00am August 13, 2017 1:06am docusate sodium 100 mg oral capsule (15 sources) Start: 01-27-2021 End: 02-25-2021 take 1 capsule by mouth every six hours Colace 100 mg oral capsule ; 1 cap(s) orally every 6 hours as needed for constipation. Quantity: 120 Refills: 0 Ordered: 27-Jan-2021 Haja Heredia Start: 27-Jan-2021 End: 25-Feb-2021 Generic Substitution Allowed Comments: Medication should be taken with plenty of water. Start: 07-31-2017 Docusate Sodiu m (Stool Softener) 50 mg capsule Active 100 MG PO 4 TIMES DAILY July 31, 2017 1:00am Comment on above: Medication should be taken with plenty of water. Fluticasone Propionate (Flovent Hfa) 220 mcg/actuation HFA aerosol inhaler (10 sources) Start: take 1 puff(s) by inhalation twice daily Fluticasone Propionate (Flovent Hfa) 220 mcg/actuation HFA aerosol inhaler Active 1 PUFF INHALATION TWICE A DAY September 08, 2022 1:00am Start: 09-08-2022 take 1 puff(s) by in halation twice daily Fluticasone Propionate (Flovent Hfa) 220 mcg/actuation HFA aerosol inhaler Active 1 PUFF INHALATION TWICE A DAY September 08, 2022 12:00am Garlic preparation (14 sources) Non-Standardized Food Allergenic Extract Start: 07-31-2017 take 1 tablet by mouth twice daily garlic tablet Active 1 TABLET PO TWICE A DAY July 31, 2017 4:34pm Start: 07-31-2017 take 1 tablet by brandin th twice daily garlic tablet Active 1 TABLET PO TWICE A DAY July 31, 2017 12:00am Start: 07-31-2017 take 1 tablet by brandin th twice daily garlic tablet Active 1 TABLET PO TWICE A DAY July 31, 2017 1:00am Lactobacillus acidophilus (4 sources) Start: 07-30-2023 take 1 tablet by mouth once daily Lactobacillus Acidophilus (Acidophilus) tablet,chewable Active 1 TABLET PO DAILY July 30, 2023 1:00am Start: 07-30-2023 take 1 tablet by brandin th once daily Lactobacillus Acidophilus (Acidophilus) tablet,chewable Active 1 TABLET PO DAILY July 30, 2023 12:00am lansoprazole 30 mg delayed release oral capsule (15 sources) Proton Pump Inhibitor Start: 02-06-2014 take 30 mg by mouth once daily Lansoprazole Active 30 MG PO DAILY February 06, 2014 12:00am lansoprazole ; o rally once a day Quantity: 0 Refills: 0 Ordered: 27-Jan-2021 Caroline Gilbert Generic Substitution Allowed Magnesium (14 sources) Start: 05-28-2018 take 250 mg by mouth three times daily Magnesium Active 250 MG PO THREE TIMES A DAY May 28, 2018 12:12pm Start: 05-28-2018 End: 09-08-2022 take 250 mg by mouth three times daily Magnesium Discontinued 250 MG PO THREE TIMES A DAY May 28, 2018 12:00am September 08, 2022 11:28am Start: 05-28-2018 End: 09-08-2022 take 250 mg by mouth three times daily Magnesium Discontinued 250 MG PO THREE TIMES A DAY May 27, 2018 11:00pm September 08, 2022 10:28am Start: 05-28-2018 take 250 mg by mouth three times daily Magnesium Active 250 MG PO THREE TIMES A DAY May 27, 2018 11:00pm Start: 05-28-2018 take 250 mg by mouth three times daily Magnesium Active 250 MG PO THREE TIMES A DAY May 28, 2018 12:00am magnesium oxide 400 mg oral capsule (4 sources) Start: 07-30-2023 take 400 mg by mouth twice daily Magnesium Oxide Active 400 MG PO TWICE A DAY July 30, 2023 1:00am meclizine hydrochloride 12.5 mg oral tablet (18 sources) Antiemetic Start: 07-30-2023 take 1-2 tablets by mouth three times daily as needed Meclizine Active 0 PO .COMPLEX July 30, 2023 1:00am 1-2 tablets TID PRN orally; Start: 05-17-2021 End: 09-08-2022 take 12.5 mg by mouth three times daily as needed Meclizine Discontinued 12.5 MG PO 3 TIMES DAILY NEEDED May 17, 2021 12:00am September 08, 2022 11:31am melatonin 5 mg oral capsule (18 sources) Start: 07-30-2023 take 10 mg by mouth once daily Melatonin Active 0 PO DAILY July 30, 2023 2:00pm 10mg orally daily; Start: 10-03-2019 End: 07-30-2023 take 5 mg by mouth once daily Melatonin Discontinued 5 MG PO DAILY October 03, 2019 1:00am July 30, 2023 2:26pm montelukast 10 mg oral tablet (15 sources) Leukotriene Receptor Antagonist Start: 02-06-2014 take 10 mg by mouth once daily Montelukast Active 10 MG PO DAILY February 06, 2014 12:00am montelukast Poncho tity: 0 Refills: 0 Ordered: 27-Jan-2021 Caroline Gilbert Generic Substitution Allowed Multivitamin (One Daily Multivitamin) tablet (4 sources) Start: 07-30-2023 take 1 tablet by mouth once daily Multivitamin (One Daily Multivitamin) tablet Active 1 TABLET PO DAILY July 30, 2023 1:00am Start: 07-30-2023 take 1 tablet by brandin th once daily Multivitamin (One Daily Multivitamin) tablet Active 1 TABLET PO DAILY July 30, 2023 12:00am Kdlslswcfuna-Oclhamym-Pgdqnw (Vision Plus Lutein) tablet (4 sources) Start: 07-30-2023 take 1 tablet by mouth once daily Pozxzavxnuea-Fhhxcafj-Wyiffm (Vision Plus Lutein) tablet Active 1 TABLET PO DAILY July 30, 2023 1:00am Start: 07-30-2023 take 1 tablet by brandin th once daily Xuwjuprxnsee-Yhpkooaq-Scghdc (Vision Plu s Lutein) tablet Active 1 TABLET PO DAILY July 30, 2023 12:00am [place] 5-Lhw-Whe-Fish Oil (Fi sh Oil) 1,200 (144-216) mg capsule (4 sources) Start: 07-30-2023 [place] 3-Dha-Ep a-Fish Oil (Fish Oil) 1,200 (144-216) mg capsule Active CAP PO July 30, 2023 1:00am Start: 07-30-2023 [place] 3-Dha-Ep a-Fish Oil (Fish Oil) 1,200 (144-216) mg capsule Active CAP PO July 30, 2023 12:00am [place]-3 Fatty Acids-Fish Oil (14 sources) Start: 05-28-2018 [place]-3 Fatty Acids-Fish Oil Active 1 EACH PO DAILY May 28, 2018 12:12pm Start: 05-28-2018 End: 09-08-2022 [place]-3 Fatty Acids-Fish Oil Discontinued 1 EACH PO DAILY May 28, 2018 12:00am September 08, 2022 11:29am Start: 05-28-2018 End: 09-08-2022 [place]-3 Fatty Acids-Fish Oil Discontinued 1 EACH PO DAILY May 27, 2018 11:00pm September 08, 2022 10:29am Start: 05-28-2018 [place]-3 Fatty Acids-Fish Oil Active 1 EACH PO DAILY May 27, 2018 11:00pm Start: 05-28-2018 [place]-3 Fatty Acids-Fish Oil Active 1 EACH PO DAILY May 28, 2018 12:00am oxyCODONE hydrochloride 5 mg oral tablet (14 sources) Opioid Agonist Start: 05-09-2023 take 1 tablet by mouth every six hours for pain oxyCODONE (Roxicodone) 5 mg immediate release tablet Indications: Postoperative pain after spinal surgery Take 1 tablet (5 mg) by mouth every 6 hours if needed for severe pain (7 - 10). 30 tablet 0 05/15/2023 Active Start: 04-02-2023 take 1 tablet by brandin th every six hours as needed for pain oxyCODONE HCl - 5 MG Oral Tablet TAKE 1 TABLET EVERY 6 HOURS NEEDED FOR BREAKTHROUGH PAIN. Quantity: 28 Refills: 0 Ordered: 17-Apr-2023 Maggie Augustine PA-C Start : 02-Apr-2023 Active [facility] history was reviewed by me and there is no evidence of abnormal narcotic prescription history. Start: 03-28-2023 End: 07-19-2023 take 5 mg by mouth every six hours Oxycodone Discontinued 5 MG PO EVERY 6 HOURS 15 12March 28, 2023 July 19, 2023 2:06pm Start: 01-27-2021 End: 02-02-2021 take 1 capsule by mouth every four hours oxyCODONE 5 mg oral capsule ; Take 1-2 Tabs orally every 4-6 hours as needed for pain x7 days Quantity: 60 Refills: 0 Ordered: 27-Jan-2021 Haja Heredia Start: 27-Jan-2021 End: 02-Feb-2021 Generic Substitution Allowed Comments: Caution federal law prohibits the transfer of this drug to any person other than the person for whom it was prescribed.It is very important that you take or use this exactly as directed. Do not skip doses or discontinue unless directed by your doctor.May cause drowsiness or dizziness.This prescription cannot be refilled.Using more of this medication than prescribed may cause serious breathing problems. Comment on above: Caution federal law prohibits the transfer of this drug to any person other than the person for whom it was prescribed.It is very important that you take or use this exactly as directed. Do not skip doses or discontinue unless directed by your doctor.May cause drowsiness or dizziness.This prescription cannot be refilled.Using more of this medication than prescribed may cause serious breathing problems. polyethylene glycol [id number] mg powder for oral solution (1 source) Osmotic Laxative Start: End: MiraLax oral powder for reconstitution ; 17 gram(s) orally 2 times a day as needed for constipation Quantity: 238 Refills: 0 Ordered: 27-Jan-2021 Haja Heredia Start: 27-Jan-2021 End: 09-Feb-2021 Generic Substitution Allowed Comments: Dilute this medication with liquid before administration.It is very important that you take or use this exactly as directed. Do not skip doses or discontinue unless directed by your doctor. Comment on above: Dilute this medicati on with liquid before administration.It is very important that you take or use this exactly as directed. Do not skip doses or discontinue unless directed by your doctor. pramipexole dihydrochloride 0.125 mg oral tablet (4 sources) Nonergot Dopamine Agonist Start: take 1 mg by mouth at bedtime Pramipexole Active MG PO AT BEDTIME July 30, 2023 1:00am quercetin 250 mg oral tablet (4 sources) Start: Quercetin Active 250 MG PO July 30, 2023 1:00am SUMAtriptan 100 mg oral tablet (19 sources) Serotonin-1b and Serotonin-1d Receptor Agonist Start: take 1 tablet by mouth every two hours as needed Sumatriptan Succinate Active 100 MG PO .COMPLEX July 30, 2023 1:00am 100 mg orally 1 tablet as needed for migraine may repeat dose 2 hours if migraine persistent Start: 02-06-2014 End: 09-08-2022 Sumatriptan Succinate Discon tinued 100 MG PO .X1 PRN February 06, 2014 12:00am September 08, 2022 11:30am Imitrex Quantity : 0 Refills: 0 Ordered: 27-Jan-2021 Caroline Gilbert Generic Substitution Allowed traZODone hydrochloride 50 mg oral tablet (4 sources) Serotonin Reuptake Inhibitor Start: 07-30-2023 take 50 mg by mouth at bedtime Trazodone Active 50 MG PO AT BEDTIME July 30, 2023 1:00am Turmeric Root Extract (14 sources) Start: 05-28-2018 take 1000 mg by mouth twice daily Turmeric Root Extract Active 1000 MG PO TWICE A DAY May 28, 2018 12:12pm Start: 05-28-2018 End: 09-08-2022 take 1000 mg by mouth twice daily Turmeric Root Extract Discontinued 1000 MG PO TWICE A DAY May 28, 2018 12:00am September 08, 2022 11:29am Start: 05-28-2018 End: 09-08-2022 take 1000 mg by mouth twice daily Turmeric Root Extract Discontinued 1000 MG PO TWICE A DAY May 27, 2018 11:00pm September 08, 2022 10:29am Start: 05-28-2018 take 1000 mg by mout h twice daily Turmeric Root Extract Active 1000 MG PO TWICE A DAY May 27, 2018 11:00pm Start: 05-28-2018 take 1000 mg by mout h twice daily Turmeric Root Extract Active 1000 MG PO TWICE A DAY May 28, 2018 12:00am venlafaxine 75 mg oral tablet (20 sources) Serotonin and Norepinephrine Reuptake Inhibitor Start: 07-30-2023 take 75 mg by mouth twice daily Venlafaxine Active 75 MG PO TWICE A DAY July 30, 2023 2:15pm Start: 02-06-2014 End: 07-30-2023 take 75 mg by mouth once daily in the morning, then take 37.5 mg by mouth once Venlafaxine Discontinued 75 MG PO DAILY December 13, 2021 2:31pm July 30, 2023 2:26pm 75mg q am, 37.5mg q afternoon venlafaxine Poncho tity: 0 Refills: 0 Ordered: 27-Jan-2021 Caroline Gilbert Generic Substitution Allowed Vitamin B Complex (4 sources) Start: 07-30-2023 take 1 tablet by brandin th once daily Vitamin B Complex Active 1 TABLET PO DAILY July 30, 2023 1:00am Start: 07-30-2023 take 1 tablet by mouth once da lashae Vitamin B Complex Active 1 TABLET PO DAILY July 30, 2023 12:00am Completed/Discontinued Medications Medication Drug Class(es) Dates Sig (Normalized) Sig (Original) acetaminophen 325 mg / HYDROcodone bitartrate 5 mg oral tablet (14 sources) Opioid Agonist Start: 04-24-2019 End: 05-06-2019 take 1 tablet by mouth every six hours as needed Hydrocodone-Acetami nophen Discontinued 1 TABLET PO EVERY 6 HOURS NEEDED 10 April 24, 2019 May 06, 2019 12:07am acetaminophen 325 mg / oxyCODONE hydrochloride 5 mg oral tablet (14 sources) Opioid Agonist Start: 09-02-2018 End: 09-07-2018 take 1 tablet by mouth every six hours as needed Oxycodone-Acetamino phen Discontinued 1 TABLET PO EVERY 6 HOURS NEEDED 15 12September 02, 2018 1:00am September 07, 2018 1:08am alendronic acid 70 mg oral tablet (15 sources) Bisphosphonate Start: 05-28-2018 End: 09-08-2022 Alendronate Discontinued 70 MG PO BONILLA May 28, 2018 12:00am September 08, 2022 11:31am alendronate Poncho tity: 0 Refills: 0 Ordered: 27-Jan-2021 Caroline Gilbert Generic Substitution Allowed benzonatate 200 mg oral capsule (20 sources) Non-narcotic Antitussive Start: 05-28-2018 End: 09-01-2018 take 200 mg by mouth twice daily Benzonatate Discontinued 200 MG PO TWICE A DAY May 28, 2018 12:23pm September 01, 2018 10:50am Start: 10-30-2017 End: 05-28-2018 take 200 mg by mouth three times daily Benzonatate Discontinued 200 MG PO THREE TIMES A DAY October 30, 2017 12:00am May 28, 2018 12:23pm busPIRone hydrochloride 30 mg oral tablet (14 sources) Start: 02-06-2014 End: 07-31-2017 take 30 mg by mouth twice daily Buspirone Discontinued 30 MG PO TWICE A DAY February 06, 2014 12:00am July 31, 2017 4:36pm calcium carbonate 1500 mg oral tablet (14 sources) Start: 05-28-2018 End: 07-30-2023 take 600 mg by mouth once daily Calcium Carbonate Discontinued 600 MG PO DAILY May 28, 2018 12:00am July 30, 2023 1:50pm celecoxib 200 mg oral capsule (14 sources) Nonsteroidal Anti-inflammatory Drug Start: 02-06-2014 End: 08-03-2017 take 200 mg by mouth once daily Celecoxib Discontinued 200 MG PO DAILY February 06, 2014 12:00am August 03, 2017 12:10pm cephalexin 500 mg oral capsule (10 sources) Cephalosporin Antibacterial Start: 09-08-2022 End: 09-18-2022 take 500 mg by mouth every twelve hours Cephalexin Discontinued 500 MG PO Q12H 20 September 08, 2022 1:00am September 18, 2022 1:05am cholecalciferol 0.025 mg oral capsule (14 sources) Vitamin D Start: 07-31-2017 End: 07-30-2023 Cholecalciferol (Vitamin D3) (Vitamin D3) 1,000 unit capsule Discontinued 400 UNIT PO DAILY July 31, 2017 1:00am July 30, 2023 1:50pm cider vinegar 300 mg oral tablet (14 sources) Start: 05-28-2018 End: 09-08-2022 take 450 mg by mouth once daily Apple Cider Vinegar Discontinued 450 MG PO DAILY May 28, 2018 12:00am September 08, 2022 11:28am diclofenac sodium 75 mg delayed release oral tablet (15 sources) Nonsteroidal Anti-inflammatory Drug Start: 05-28-2018 End: 06-22-2019 take 75 mg by mouth once daily Diclofenac Sodium Discontinued 75 MG PO DAILY May 28, 2018 12:00am June 22, 2019 11:13am diclofenac Quant ity: 0 Refills: 0 Ordered: 27-Jan-2021 Caroline Gilbert Generic Substitution Allowed 120 actuat fluticasone propionate 0.22 mg/actuat metered dose inhaler (20 sources) Corticosteroid Start: 05-28-2018 End: 12-13-2021 take 1 puff(s) by inhalation once daily Fluticasone Propionate Discontinued 2 PUFF INHALATION DAILY May 28, 2018 12:00am December 13, 2021 2:25pm Start: 02-06-2014 End: 07-31-2017 take 1 puff(s) by mouth once daily Fluticasone Propionate Discontinued 1 PUFF PO DAILY February 06, 2014 12:00am July 31, 2017 4:35pm Flovent Quantity : 0 Refills: 0 Ordered: 27-Jan-2021 Caroline Gilbert Generic Substitution Allowed gabapentin 100 mg oral capsule (20 sources) Anti-epileptic Agent Start: 08-06-2019 End: 07-30-2023 take 200 mg by mouth three times daily Gabapentin Discontinued 200 MG PO THREE TIMES A DAY December 13, 2021 2:26pm July 30, 2023 1:51pm gabapentin ; ora lly 3 times a day Quantity: 0 Refills: 0 Ordered: 27-Jan-2021 AlbinCaroline meier Generic Substitution Allowed meloxicam 15 mg oral tablet (8 sources) Nonsteroidal Anti-inflammatory Drug Start: 11-15-2022 End: 07-30-2023 take 15 mg by mouth once daily Meloxicam Discontinued 15 MG PO DAILY November 15, 2022 12:00am July 30, 2023 2:03pm Do not take in conjunction with other NSAIDs. Tylenol is okay. methocarbamol 500 mg oral tablet (6 sources) Muscle Relaxant Start: 04-03-2023 take 1-2 tablets by mouth every eight hours as needed Methocarbamol 500 MG Oral Tablet take one to two tablets every 8 hours prn. Quantity: 90 Refills: 2 Ordered: 03-Apr-2023 Bianca Bah PA-C Start : 03-Apr-2023 Active Start: 01-27-2021 End: 02-25-2021 take 2 tablets by mouth every eight hours methocarbamol 500 mg oral tablet ; 2 tab(s) orally every 8 hours Quantity: 90 Refills: 1 Ordered: 27-Jan-2021 Haja Heredia Start: 27-Jan-2021 End: 25-Feb-2021 Generic Substitution Allowed Comments: May cause drowsiness. Alcohol may intensify this effect. Use care when operating dangerous machinery. Comment on above: May cause drowsiness . Alcohol may intensify this effect. Use care when operating dangerous machinery. methylPREDNISolone 4 mg oral tablet (14 sources) Corticosteroid Start : 08-03 End: 08-08 take 1 tablet by mouth once Methylprednisolone (Medrol (Asaf)) 4 mg tablets,dose pack Discontinued 4 MG PO per package directions 16 12August 03, 2017 1:00am August 08, 2017 1:06am naproxen 250 mg oral tablet (14 sources) Nonsteroidal Anti-inflammatory Drug Start : 08-03 End: 08-13 take 250 mg by mouth three times daily at mealtime Naproxen Discontinued 250 MG PO THREE TIMES A DAY 30 August 03, 2017 1:00am August 13, 2017 1:06am administer with food or milk nortriptyline 50 mg oral capsule (14 sources) Tricyclic Antidepressant Start : 02-06 End: 07-31 take 100 mg by mouth at bedtime Nortriptyline Discontinued 100 MG PO AT BEDTIME February 06, 2014 12:00am July 31, 2017 4:35pm pregabalin 50 mg oral capsule (14 sources) Start : 02-06 End: 07-31 take 50 mg by mouth twice daily Pregabalin Discontinued 50 MG PO TWICE A DAY February 06, 2014 12:00am July 31, 2017 4:36pm vitamin a 2.4 mg oral capsule (14 sources) Vitamin A Start : 07-31 End: 07-30 take 90785 [IU] by mouth once daily Vitamin A Discontinued 43217 UNIT PO daily July 31, 2017 1:00am July 30, 2023 2:04pm vitamin e 90 mg oral capsule (14 sources) Start : 07-31 End: 07-30 take 400 [IU] by mouth once daily Vitamin E Discontinued 400 UNIT PO daily July 31, 2017 1:00am July 30, 2023 2:04pm WHITE WILLOW BARK (13 sources) Start : 12-13 End: 09-08 white willow bark Discontinued PO December 13, 2021 12:00am September 08, 2022 11:29am Start: 12-13-2021 End: 09-08-2022 white willow bark Discontinu ed PO December 12, 2021 11:00pm September 08, 2022 10:29am Start: 12-13-2021 white willow b ark Active PO December 12, 2021 11:00pm Start: 12-13-2021 white willow b ark Active PO December 13, 2021 12:00am Problems Active Problems Problem Classification Problem Date Documented Da te Episodic/Chronic Abdominal pain (20 sources) Abdominal pain; Translations: [Unspecified abdominal pain] 08-10-2022 Episodic Anxiety disorders (14 sources) Mixed anxiety and depressive disorder; Translations: [Anxiety disorder, unspecified] 10-03-2019 Chronic Asthma (11 sources) Asthma; Translations: [Asthma, unspecified type, unspecified] Onset: 1 02-03-2021 Chronic Biliary tract disease (11 sources) Biliary calculus; Translations: [Calculus of gallbladder without cholecystitis without obstruction] 08-10-2022 Episodic Chronic obstructive pulmonary disease and bronchiectasis (14 sources) Bronchitis; Translations: [Bronchitis, not specified as acute or chronic] 10-04-2019 Episodic Complication of device; implant or graft (1 source) Injury of cauda equina ; Translations: [Cauda equina spinal cord injury without evidence of spinal bone injury] 01-27-2021 Chronic E Codes: Fall (6 sources) Fall; Translations: [Unspecified fall, initial encounter] 03-28-2023 Episodic Esophageal disorders (3 sources) Gastroesophageal reflux disease; Translations: [Esophageal reflux] Onset: 1 02-03-2021 Chronic Essential hypertension (2 sources) Essential (primary) hypertension; Translations: [Essential (primary) hypertension] Onset: 3 Chronic Fluid and electrolyte disorders (11 sources) Acute hypokalemia; Translations: [Hypokalemia] 08-10-2022 Episodic Genitourinary symptoms and ill-defined conditions (14 sources) Dysuria; Translations: [Dysuria] Onset: 5 09-08-2022 Episodic Headache; including migraine (1 source) Migraine, unspecified, not intractable, without status migrainosus; Translations: [Migraine, unsp, not intractable, without status migrainosus] Onset: 3 Chronic Headache; including migraine (1 source) Headache; including migraine; Translations: [Headache, unspecified] Onset: 3 Immunizations and screening for infectious disease (1 source) Contact with or exposure to other viral diseases Onset: 1 02-03-2021 Episodic Malaise and fatigue (11 sources) Asthenia; Translations: [Weakness] 08-10-2022 Episodic Mood disorders (2 sources) Acute depression; Translations: [Major depressive affective disorder, single episode, unspecified] Onset: 1 02-03-2021 Chronic Mood disorders (1 source) Mood disorders; Translations: [Depression, unspecified] Onset: 3 Nausea and vomiting (15 sources) Nausea; Translations: [Nausea] Onset: 3 05-25-2021 Episodic Osteoarthritis (5 sources) Unilateral primary osteoarthritis, right knee; Translations: [Osteoarthrosis, unspecified whether generalized or localized, lower leg] Onset: 5 07-19-2023 Chronic Other aftercare (1 source) Other chcf (current) drug therapy; Translations: [Other chcf (current) drug therapy] Onset: 3 Episodic Other bone disease and musculoskeletal deformities (20 sources) Segmental and somatic dysfunction; Translations: [Segmental and somatic dysfunction of cervical region] 08-07-2019 Episodic Other connective tissue disease (1 source) Arthrodesis status; Translations: [Arthrodesis status] Onset: 3 Episodic Other diseases of bladder and urethra (13 sources) Urethral cyst; Translations: [Other specified disorders of urethra] 12-13-2021 Episodic Other diseases of kidney and ureters (1 source) Cyst of kidney, acquired; Translations: [Cyst of kidney, acquired] Onset: 3 Episodic Other ear and sense organ disorders (1 source) Unspecified hearing loss, unspecified ear; Translations: [Unspecified hearing loss, unspecified ear] Onset: 3 Chronic Other gastrointestinal disorders (11 sources) Diarrhea; Translations: [Diarrhea, unspecified] 08-10-2022 Episodic Other gastrointestinal disorders (6 sources) H/O: gallstones; Translations: [Personal history of other diseases of the digestive system] 03-28-2023 Episodic Other gastrointestinal disorders (1 source) Other fecal abnormalities; Translations: [Other fecal abnormalities] Onset: 5 Episodic Other injuries and conditions due to external causes (2 sources) Spinal injury 01-27-2021 Episodic Comment on above: SPINAL INJURY Other lower respiratory disease (2 sources) Cough; Translations: [Cough] 09-10-2023 Episodic Other nervous system disorders (1 source) Chronic pain; Translations: [Other chronic pain] Onset: 1 02-03-2021 Chronic Other nervous system disorders (1 source) Postoperative pain ; Translations: [Other acute postprocedural pain] 06-07-2023 Episodic Other nervous system disorders (2 sources) Other acute postprocedural pain; Translations: [Other acute postprocedural pain] Onset: 3 Episodic Other non-traumatic joint disorders (1 source) Pain in left hip; Translations: [Pain in joint, pelvic region and thigh] 10-16-2022 Episodic Paralysis (14 sources) Cauda equina syndrome; Translations: [Cauda equina syndrome] 01-26-2021 Chronic Residual codes; unclassified (1 source) Chronic pain 02-03-2021 Episodic Residual codes; unclassified (1 source) Other specified postprocedural states; Translations: [Personal history of surgery to other organs] 10-16-2022 Episodic Spondylosis; intervertebral disc disorders; other back problems (15 sources) Degeneration of cervical intervertebral disc; Translations: [Other cervical disc degeneration, unspecified cervical region] Onset: 3 06-22-2019 Chronic Spondylosis; intervertebral disc disorders; other back problems (20 sources) Spinal stenosis of lumbar region; Translations: [Spinal stenosis, lumbar region, without neurogenic claudication] Onset: 1 02-02-2021 Episodic Superficial injury; contusion (6 sources) Contusion of back; Translations: [Contusion of unspecified back wall of thorax, initial encounter] 03-28-2023 Episodic Unclassified (1 source) 1ST POST OP 01-31-2021 Comment on above: 1ST POST OP Unclassified (1 source) Cauda equina spinal cord injury 01-27-2021 Unclassified (2 sources) Lumbar stenosis 02-02-2021 Unclassified (1 source) Close exposure to COVID-19 virus 02-03-2021 Unclassified (4 sources) Low back pain, unspecified; Translations: [Low back pain, unspecified] Onset: 3 Urinary tract infections (14 sources) Pyelonephritis; Translations: [Tubulo-interstitial nephritis, not specified as acute or chronic] 08-06-2019 Episodic Viral infection (11 sources) Disease caused by 2019-nCoV; Translations: [COVID-19] 08-02-2022 Episodic Past or Other Problems Problem Classification Problem Date Documented Da te Episodic/Chronic Other non-traumatic joint disorders (1 source) Pain in right shoulder; Translations: [Pain in right shoulder] Onset: 09-14-2024 Episodic Other non-traumatic joint disorders (1 source) Pain in left shoulder; Translations: [Pain in left shoulder] Onset: 09-14-2024 Episodic Other screening for suspected conditions (not mental disorders or infectious disease) (1 source) Encounter for screening mammogram for malignant neoplasm of breast; Translations: [Encounter for screening mammogram for malignant neoplasm of breast] Onset: 08-25-2024 Episodic Unclassified (13 sources) child 02-15-2022 Unclassified (2 sources) Low back pain, unspecified; Translations: [Low back pain, unspecified] Onset: 04-17-2023 Results Test Name Value Interpretation Reference Range Facility CBC W/Diff, Automatedon 05- Absolute Lymph 1.89 X10 3/uL Normal 0.83-4.51 [facility] Comment on above: Performed By: #### L 500.4050, L100.0100 #### [facility] [address] [place], [address] Absolute Neut 5.1 X10 3/uL Normal 2.0-7.7 [facility] Comment on above: Performed By: #### L 500.4050, L100.0100 #### [facility] [address] [place], [address] Basophils/100 WBC (Bld) 0.5 % Normal 0-1 [facility] Comment on above: Performed By: #### L 500.4050, L100.0100 #### [facility] [address] [place], [address] Eosinophils/100 WBC (Bld) 1.1 % Normal 0-5 [facility] Comment on above: Performed By: #### L 500.4050, L100.0100 #### [facility] [address] [place], [address] Erythrocyte distribution width (RBC) [Ratio] 13.2 % Normal 11.6-14.6 [facility] Comment on above: Performed By: #### L 500.4050, L100.0100 #### [facility] [address] [place], [address] Hematocrit (Bld) [Volume fraction] 43.9 % Normal 37-47 [facility] Comment on above: Performed By: #### L 500.4050, L100.0100 #### [facility] [address] [place], [address] Hemoglobin (Bld) [Mass/Vol] 14.3 g/dL Normal 12.0-15.0 [facility] Comment on above: Performed By: #### L 500.4050, L100.0100 #### [facility] [address] [place], [address] IG% 0.100 Normal 0.0-0.9 [facility] Comment on above: Result Comment: IG% - Immature Granulocytes (promyelocytes, myelocytes and metamyelocytes) > 1% indicates that a LEFT SHIFT is Present. Performed By: #### L 500.4050, L100.0100 #### [facility] [address] [place], [address] Lymphocytes/100 WBC (Bld) 24.9 % Normal 19-41 [facility] Comment on above: Performed By: #### L 500.4050, L100.0100 #### [facility] [address] [place], [address] MCH (RBC) [Entitic mass] 32.1 pg High 27.0-32.0 [facility] Comment on above: Performed By: #### L 500.4050, L100.0100 #### [facility] [address] [place], [address] MCHC (RBC) [Mass/Vol] 32.6 g/dL Normal 32-36 [facility] Comment on above: Performed By: #### L 500.4050, L100.0100 #### [facility] [address] [place], [address] MCV (RBC) [Entitic vol] 98.7 fL Normal 81-99 [facility] Comment on above: Performed By: #### L 500.4050, L100.0100 #### [facility] [address] [place], [address] Monocytes/100 WBC (Bld) 6.6 % Normal 0-10 [facility] Comment on above: Performed By: #### L 500.4050, L100.0100 #### [facility] [address] [place], [address] Neutrophils/100 WBC (Bld) 66.8 % Normal 47-70 [facility] Comment on above: Performed By: #### L 500.4050, L100.0100 #### [facility] [address] [place], [address] Nucleated RBC (Bld) [#/Vol] 0 10*3/uL Normal 0-5 [facility] Comment on above: Performed By: #### L 500.4050, L100.0100 #### [facility] [address] [place], [address] Platelet mean volume (Bld) [Entitic vol] 11.8 fL Normal 6.2-12.0 [facility] Comment on above: Performed By: #### L 500.4050, L100.0100 #### [facility] [address] [place], [address] Platelets (Bld) [#/Vol] 215 10*3/uL Normal 150-450 [facility] Comment on above: Performed By: #### L 500.4050, L100.0100 #### [facility] [address] [place], [address] RBC (Bld) [#/Vol] 4.45 10*6/uL Normal 4.2-5.4 [facility] Comment on above: Performed By: #### L 500.4050, L100.0100 #### [facility] [address] [place], [address] RDW SD 47.8 fl High 35.1-43.9 [facility] Comment on above: Performed By: #### L 500.4050, L100.0100 #### [facility] [address] [place], [address] WBC (Bld) [#/Vol] 7.6 10*3/uL Normal 4.4-11.0 [facility] Comment on above: Performed By: #### L 500.4050, L100.0100 #### [facility] [address] [place], [address] Comprehensive Metabolic Prof [facility] 12-24-2024 Albumin [Mass/Vol] 4.6 g/dL Normal 3.4-4.8 [facility] Comment on above: Performed By: #### L 500.4050, L100.0100 #### [facility] [address] [place], [address] Albumin/Globulin [Mass ratio] 1.8 {ratio} Normal 0.9-2.4 [facility] Comment on above: Performed By: #### L 500.4050, L100.0100 #### [facility] [address] [place], [address] ALK PHOS 100 U/L Normal 35-104 [facility] Comment on above: Performed By: #### L 500.4050, L100.0100 #### [facility] [address] [place], [address] ALT [Catalytic activity/Vol] 17 U/L Normal <=34 [facility] Comment on above: Performed By: #### L 500.4050, L100.0100 #### [facility] [address] [place], [address] AST [Catalytic activity/Vol] 25 U/L Normal <=31 [facility] Comment on above: Performed By: #### L 500.4050, L100.0100 #### [facility] [address] [place], [address] Bilirubin [Mass/Vol] 0.28 mg/dL Normal 0.00-1.30 [facility] Comment on above: Performed By: #### L 500.4050, L100.0100 #### [facility] [address] [place], [address] BUN/CRE 17.2 RATIO Normal 10-20 [facility] Comment on above: Performed By: #### L 500.4050, L100.0100 #### [facility] [address] [place], [address] Calcium [Mass/Vol] 10.2 mg/dL Normal 7.6-11.0 [facility] Comment on above: Performed By: #### L 500.4050, L100.0100 #### [facility] [address] [place], [address] Chloride [Moles/Vol] 106 mmol/L Normal 98-108 [facility] Comment on above: Performed By: #### L 500.4050, L100.0100 #### [facility] [address] [place], [address] CO2 [Moles/Vol] 21.5 mmol/L Normal 21.0-32.0 [facility] Comment on above: Performed By: #### L 500.4050, L100.0100 #### [facility] [address] [place], [address] Creatinine [Mass/Vol] 0.86 mg/dL Normal 0.70-1.20 [facility] Comment on above: Performed By: #### L 500.4050, L100.0100 #### [facility] [address] [place], [address] GAP 14 Normal 5-15 [facility] Comment on above: Performed By: #### L 500.4050, L100.0100 #### [facility] [address] [place], [address] GFR/1.73 sq M.predicted among non-blacks MDRD (S/P/Bld) [Vol rate/Area] 72 mL/min/{1.73_m2} Normal >60 [facility] Comment on above: Result Comment: mL/m in/1.73m2 CKD-EPI Creatinine Equation (2020) Performed By: #### L 500.4050, L100.0100 #### [facility] [address] [place], [address] Globulin (S) [Mass/Vol] 2.6 g/dL Normal 2.2-4.2 [facility] Comment on above: Performed By: #### L 500.4050, L100.0100 #### [facility] [address] [place], [address] Glucose [Mass/Vol] 107 mg/dL High 70-99 [facility] Comment on above: Performed By: #### L 500.4050, L100.0100 #### [facility] [address] [place], [address] Potassium [Moles/Vol] 4.2 mmol/L Normal 3.3-5.1 [facility] Comment on above: Performed By: #### L 500.4050, L100.0100 #### [facility] [address] [place], [address] Sodium [Moles/Vol] 141 mmol/L Normal 133-145 [facility] Comment on above: Performed By: #### L 500.4050, L100.0100 #### [facility] [address] [place], [address] T PROT 7.2 g/dL Normal 5.9-8.4 [facility] Comment on above: Performed By: #### L 500.4050, L100.0100 #### [facility] [address] [place], [address] Urea nitrogen [Mass/Vol] 15 mg/dL Normal 4-19 [facility] Comment on above: Performed By: #### L 500.4050, L100.0100 #### [facility] [address] [place], [address] Urine Cultureon 11-15-2024 URC Below infection leve l. Mixed Gram Positive Organisms [place] Count 1000-10,000 MIXC Mixed contaminants. Submit a new specimen if indicated. Normal [facility] Comment on above: Performed By: #### M 100.2200 #### [facility] [address] [place], [address] Colonoscopy Reporton 025 Colonoscopy Report [facility] Medical Records Department [address] [place] [address] Colonoscopy Report MR#: [id number] Acct: [id number] Name: ALISHA AG Rep #: [id number] : 1955 68 From: Andrés Brizuela MD PCP: Dr. Glory Deal MD Status:[facility] Patient Name: Alisha Ag Procedure Date: 08/07/2024 8:34 AM Date of : 1955 Age: 68 Procedure: Colonoscopy Indications: Positive Cologuard test Providers: Andrés Brizuela MD Referring MD: Glory Deal Medicines: Propofol per Anesthesia Patient Profile: This is a 68 year old female. Refer to note in patient chart for documentation of history and physical. Last Colonoscopy: several years ago. Complications: No immediate complications. Procedure: [...] Prior Anticoagulants: The patient has taken no anticoagulant or antiplatelet agents. After reviewing the risks and benefits, the patient was deemed in satisfactory condition to undergo the procedure. After I obtained informed consent, the scope was passed under direct vision. Throughout the procedure, the patient's blood pressure, pulse, and oxygen saturations were monitored continuously. The Colonoscope was introduced through the anus and advanced to the cecum, identified by appendiceal orifice and ileocecal valve. The colonoscopy was technically difficult and complex due to significant looping. The patient tolerated the procedure well. The quality of the bowel preparation was good. The ileocecal valve, appendiceal orifice, and rectum were photographed. Scope In: 8:42:46 AM Scope Withdrawal Time 0 hours 3 minutes 55 seconds Scope Out: 9:15:33 AM Total Procedure Duration Time 0 hours 32 minutes 47 seconds Findings: The entire examined colon appeared normal on direct and retroflexion views. Impression: - The entire examined colon is normal on direct and retroflexion views. - No specimens collected. Recommendation: - Discharge patient to home. - Resume previous diet. - Continue present medications. - Repeat colonoscopy is not recommended due to current age (66 years or older) for screening purposes. Procedure Code(s): --- Professional --- 02131, Colonoscopy, flexible; diagnostic, including collection of specimen(s) by brushing or washing, when performed (separate procedure) Diagnosis Code(s): --- Professional --- R19.5, Other fecal abnormalities CPT copyright 2021 [employer]. All rights reserved. The codes documented in this report are preliminary and upon fuel oil clerk review may be revised to meet current compliance requirements. Andrés Brizuela MD 08/07/2024 9:19:39 AM This report has been signed electronically. Number of Addenda: 0 Note Initiated On: 08/07/2024 8:34 AM 08/07/24 0919 Date Andrés Brizuela MD Cosigner Signature: Date (if indicated) CC: Dr. Andrés Brizuela MD; Dr. Glory Deal MD Date Dictated: 08/07/24833 Date Transcribed: Amusement Park Worker: Signed [facility] MR/POSTOP.ANE 08-07-2024 MR/POSTOP.[facility] Medical Records Department [address] [place] [address] Anesthesia Postop Eval I 08/07/24926 MR#: [id number] Acct: [id number] Name: ALISHA AG Rep #: [id number] : 1955 68 From: Donny Nolasco PCP: Dr. Glory Deal MD Status:REG [facility] [place] Race: C Location: [place] [address] Anesthesia: Postop Eval I Current Vital Signs Temperature: 97 F Pulse Rate: 79 Blood Pressure: 120/65 Respiratory Rate: 16 Pulse Ox: 96 Oxygen Delivery Method: Room Air Assessment Airway patent: Yes Spontaneous unlabored respirations: Yes Mental status: Awake and Calm nausea: No Vomiting: No Anesthesia Complication: No Fluid Hydration Crystalloid volume administer (ml): 90 Total IV fluid infused: 90 Progress Note Anesthesia document: Postop Eval 1 completed: Yes 08/07/24927 Date Donny Serna Signature: Date CC: Signed [facility] MR/[id number] 08-07-2024 MR/POSTOPAN2 [facility] Medical Records Department [address] [place] [address] Anesthesia Postop Eval II 08/07/24935 MR#: [id number] Acct: [id number] Name: ALISHA AG Rep #: [id number] : 1955 68 From: Aleta Schneider PCP: Dr. Glory Deal MD Status:REG [facility] Y Race: C Location: [place] [address] Anesthesia Postop Eval I Sum Postop Eval Completion status Anesthesia document: Postop Eval 1 completed: Yes Anesthesia Postop Eval I Summary Anesthesia Postop Eval I Summary: Anesthesia Postop Eval I: Assessment Summary Airway patent Yes 08/07/24 09:28 [email or web address] Spontaneous unlabored Yes 08/07/24 09:28 [email or web address] respirations Mental status Awake,Calm 08/07/24 09:28 [email or web address] nausea No 08/07/24 09:28 [email or web address] Vomiting No 08/07/24 09:28 [email or web address] Anesthesia Postop Eval I: Fluid Summary Crystalloid volume administer 90 08/07/24 09:28 [email or web address] (ml) Colloids volume administered ( ml) Blood Product volume administered (ml) Total IV fluid infused 90 08/07/24 09:28 [email or web address] Anesthesia Postop Eval I: Summary Notes Anesthesia Complication No 08/07/24 09:28 [email or web address] Anesthesia Complication Comment: Post-operative progress note Anesthesia: Postop Eval II Evaluation Mental status: Awake and Calm Pain Level: 0 nausea: No Vomiting: No Complications Anesthesia Complication: No 08/07/2437 Date Aleta Serna Signature: Date CC: Signed Normal [facility] Surgery Visit Reporton 07-10 Surgery Visit Report [facility] [address] [place] [address]. [address] [place] [address] OFFICE VISIT Date of Service: 07/10/24 MR#: [id number] Acct: [id number] Name: ALISHA AG Rep #: [id number] : 1955 Provider: Dr. Andrés joshi MD Age/Sex: 68/F Location: [facility] Status: Signed Intake Vital Signs 09/09/23 08:02 07/07/24 13:28 07/10/24 13:21 Height 5 ft 2 in 5 ft 2 in 5 ft 2 in Weight: 152 lb 2 oz 153 lb 4 oz BMI 27.8 28.0 BP 127/72 H Blood Pressure Location Rt brachial Position Sitting Respiration 18 Pulse 78 Pulse Source Monitor Temp 97.6 F L Temp Source Temporal Pulse Oximetry (%) 96 Oxygen Delivery Method room air Intake Visit Reasons: POSITIVE COLOGUARD Chief Complaint: positive cologuard Is patient in pain?: No Allergies house dust Allergy (Intermediate, Verified 07/10/24 13:22) Other tree and shrub pollen Allergy (Intermediate, Verified 07/10/24 13:22) Other chocolate flavor Allergy (Verified 07/10/24 13:22) Unknown cosmetic Allergy (Verified 07/10/24 13:22) NEEDS FOLLOW-UP fexofenadine (From Ariadna) Allergy (Verified 07/10/24 13:22) Unknown nut - unspecified Allergy (Verified 07/10/24 13:22) NEEDS FOLLOW-UP pineapple Allergy (Verified 07/10/24 13:22) Unknown adhesive tape Adverse Reaction (Verified 07/10/24 13:22) unknown amoxicillin (Amoxicillin) Adverse Reaction (Verified 07/10/24 13:22) Other atropine (From ) Adverse Reaction (Verified 07/10/24 13:22) trouble breathing avocado Adverse Reaction (Verified 07/10/24 13:22) UNKNOWN bupropion HCl (From Wellbutrin) Adverse Reaction (Verified 07/10/24 13:22) Other egg Adverse Reaction (Verified 07/10/24 13:22) Other erythromycin base Adverse Reaction (Verified 07/10/24 13:22) Diarrhea hyoscyamine (From ) Adverse Reaction (Verified 07/10/24 13:22) trouble breathing morphine Adverse Reaction (Verified 07/10/24 13:22) Itching phenobarbital (From ) Adverse Reaction (Verified 07/10/24 13:22) trouble breathing scopolamine (From ) Adverse Reaction (Verified 07/10/24 13:22) trouble breathing Medications ???Medication ???Instructions ???Recorded ???Confirmed ???Type lansoprazole 30 mg capsule,delayed 30 mg PO DAILY Gerd 02/06/14 07/10/24 History release ascorbic acid (vitamin C) 1,000 mg 1,000 mg PO DAILY 07/31/17 07/10/24 History tablet garlic 1 tab PO BID 07/31/17 07/10/24 History amlodipine 10 mg tablet 10 mg PO DAILY #30 tabs 05/17/21 07/10/24 Rx Lactobacillus acidophilus 1 tab PO DAILY 07/30/23 07/10/24 History (Acidophilus chewable tablet) ashwagandha extract 120 mg capsule mg PO DAILY 07/30/23 07/10/24 History cinnamon bark 500 mg capsule 500 mg PO DAILY 07/30/23 07/10/24 History (Cinnamon) cranberry 400 mg capsule 400 mg PO DAILY 07/30/23 07/10/24 History cyclobenzaprine 10 mg tablet See Rx Instructions PO .COMPLEX 07/30/23 07/10/24 History magnesium oxide 400 mg PO BID 07/30/23 07/10/24 History melatonin 5 mg capsule See Rx Instructions PO DAILY 07/30/23 07/10/24 History multivitamin (One Daily 1 tab PO DAILY 07/30/23 07/10/24 History Multivitamin tablet) iwmmiuiyuide-bozscqti-kn tein 1 tab PO DAILY 07/30/23 07/10/24 History tablet (Vision Plus Lutein tablet) omega 3-ujv-qjh-fish oil 1,200 mg cap PO 07/30/23 07/10/24 History (144 mg-216 mg) capsule (Fish Oil) pramipexole 0.125 mg tablet mg PO QHS 07/30/23 07/10/24 History quercetin 500 mg capsule 250 mg PO 07/30/23 07/10/24 History sumatriptan succinate 100 mg tablet 100 mg PO .COMPLEX 07/30/23 07/10/24 History trazodone 50 mg tablet 50 mg PO QHS 07/30/23 07/10/24 History venlafaxine 75 mg tablet 75 mg PO BID Depression 07/30/23 07/10/24 History vitamin B complex 1 tab PO DAILY 07/30/23 07/10/24 History acetaminophen 500 mg tablet 500 mg PO Q6H PRN 03/11/24 07/10/24 History (Tylenol Extra Strength) docusate sodium 50 mg capsule 100 mg PO DAILY stool softner 03/11/24 07/10/24 History (Stool Softener) turmeric 400 mg capsule mg PO 07/10/24 07/10/24 History Have you fallen in the past year?: No PFSH Medical History (Updated 07/10/24 @ 13:21 by Whitney Johnson LPN) Positive colorectal cancer screening using Cologuard test Bilateral shoulder pain Aftercare following right elbow joint replacement surgery Dizziness Fall Depression Contusion of hand Contusion of right shoulder region Concussion Melanoma GERD (gastroesophageal reflux disease) Osteopenia IBS (irritable bowel syndrome) Hypoglycemia Low calcium levels Anxiety and depression child Difficulty balancing Incontinence Back pain Asthma Knee pain Hay fever Arthritis Surgical History S/P laminec (more content not included)... Normal [facility] Orthopedic Visit Reporton Orthopedic Visit Report [facility] [address] [place] [address] OFFICE VISIT Date of Service: 07/07/24 MR#: [id number] Acct: [id number] Name: ALISHA AG Rep #: [id number] : 1955 Provider: Dr. Eric walsh MD Age/Sex: 68/F Location: [facility] [place] Status: Signed Intake Vital Signs 09/09/23 08:02 07/07/24 13:28 Height 5 ft 2 in 5 ft 2 in Weight: 152 lb 2 oz BMI 27.8 Intake Visit Reasons: BL SHOULDER Chief Complaint: Bilateral Shoulder Pain Accompanied by: Self Is patient in pain?: Yes Pain scale (1-10): 1 Allergies house dust Allergy (Intermediate, Verified 07/07/24 13:28) Other tree and shrub pollen Allergy (Intermediate, Verified 07/07/24 13:28) Other chocolate flavor Allergy (Verified 07/07/24 13:28) Unknown cosmetic Allergy (Verified 07/07/24 13:28) NEEDS FOLLOW-UP fexofenadine (From Ariadna) Allergy (Verified 07/07/24 13:28) Unknown nut - unspecified Allergy (Verified 07/07/24 13:28) NEEDS FOLLOW-UP pineapple Allergy (Verified 07/07/24 13:28) Unknown adhesive tape Adverse Reaction (Verified 07/07/24 13:28) unknown amoxicillin (Amoxicillin) Adverse Reaction (Verified 07/07/24 13:28) Other atropine (From ) Adverse Reaction (Verified 07/07/24 13:28) trouble breathing avocado Adverse Reaction (Verified 07/07/24 13:28) UNKNOWN bupropion HCl (From Wellbutrin) Adverse Reaction (Verified 07/07/24 13:28) Other egg Adverse Reaction (Verified 07/07/24 13:28) Other erythromycin base Adverse Reaction (Verified 07/07/24 13:28) Diarrhea hyoscyamine (From ) Adverse Reaction (Verified 07/07/24 13:28) trouble breathing morphine Adverse Reaction (Verified 07/07/24 13:28) Itching phenobarbital (From ) Adverse Reaction (Verified 07/07/24 13:28) trouble breathing scopolamine (From ) Adverse Reaction (Verified 07/07/24 13:28) trouble breathing Medications ???Medication ???Instructions ???Recorded ???Confirmed ???Type lansoprazole 30 mg capsule,delayed 30 mg PO DAILY Gerd 02/06/14 07/07/24 History release ascorbic acid (vitamin C) 1,000 mg 1,000 mg PO DAILY 07/31/17 07/07/24 History tablet garlic 1 tab PO BID 07/31/17 07/07/24 History amlodipine 10 mg tablet 10 mg PO DAILY #30 tabs 05/17/21 07/07/24 Rx Lactobacillus acidophilus 1 tab PO DAILY 07/30/23 07/07/24 History (Acidophilus chewable tablet) ashwagandha extract 120 mg capsule mg PO DAILY 07/30/23 07/07/24 History cinnamon bark 500 mg capsule 500 mg PO DAILY 07/30/23 07/07/24 History (Cinnamon) cranberry 400 mg capsule 400 mg PO DAILY 07/30/23 07/07/24 History cyclobenzaprine 10 mg tablet See Rx Instructions PO .COMPLEX 07/30/23 07/07/24 History magnesium oxide 400 mg PO BID 07/30/23 07/07/24 History melatonin 5 mg capsule See Rx Instructions PO DAILY 07/30/23 07/07/24 History multivitamin (One Daily 1 tab PO DAILY 07/30/23 07/07/24 History Multivitamin tablet) oirfordejrmt-omzgfxyg-ut tein 1 tab PO DAILY 07/30/23 07/07/24 History tablet (Vision Plus Lutein tablet) omega 0-lbz-ner-fish oil 1,200 mg cap PO 07/30/23 07/07/24 History (144 mg-216 mg) capsule (Fish Oil) pramipexole 0.125 mg tablet mg PO QHS 07/30/23 07/07/24 History quercetin 500 mg capsule 250 mg PO 07/30/23 07/07/24 History sumatriptan succinate 100 mg tablet 100 mg PO .COMPLEX 07/30/23 07/07/24 History trazodone 50 mg tablet 50 mg PO QHS 07/30/23 07/07/24 History venlafaxine 75 mg tablet 75 mg PO BID Depression 07/30/23 07/07/24 History vitamin B complex 1 tab PO DAILY 07/30/23 07/07/24 History acetaminophen 500 mg tablet 500 mg PO Q6H PRN 03/11/24 07/07/24 History (Tylenol Extra Strength) docusate sodium 50 mg capsule 100 mg PO DAILY stool softner 03/11/24 07/07/24 History (Stool Softener) Have you fallen in the past year?: Yes [facility] Medical History Bilateral shoulder pain Aftercare following right elbow joint replacement surgery Dizziness Fall Depression Contusion of hand Contusion of right shoulder region Concussion Melanoma GERD (gastroesophageal reflux disease) Osteopenia IBS (irritable bowel syndrome) Hypoglycemia Low calcium levels Anxiety and depression child Difficulty balancing Incontinence Back pain Asthma Knee pain Hay fever Arthritis Surgical History S/P laminectomy with spinal fusion History of laminectomy H/O left breast biopsy S/P breast lumpectomy Hx of knee surgery Family History Father Cancer skin cancer; basal cell Other Asthma Colon cancer Social History household members: none current occup (more content not included)... Normal [facility] Shoulder min 2 Viewson 07-07 Shoulder min 2 Views [facility] [address] [place] [address] Shoulder min 2 Views MR#: [id number] Acct: [id number] Name: ALISHA AG Rep #: [id number] : 1955 F 68 From: Micah Gutierrez MD PCP: Dr. Glory Deal MD Status: DEP AMB Study: Shoulder min 2 Views Date of Exam: 07/07/24 Exam# [id number] Ordering Dr: Eric Carney MD [id number] STUDY: X-RAY - RIGHT SHOULDER REASON FOR EXAM: Female, 68 years old. Pain. TECHNIQUE: 4 views of the right shoulder. COMPARISON: None. FINDINGS: Normal glenohumeral articulation. There is mild hypertrophic acromioclavicular arthrosis. Normal acromion. Normal humeral head and visualized proximal humerus. The soft tissue structures are unremarkable. There is no demonstrated fracture. Normal visualized pulmonary apex. RAD/Shoulder min 2 Views IMPRESSION: Mild hypertrophic acromioclavicular arthrosis. No demonstrated fracture. Electronically Signed: Mciah Gutierrez MD at 15:35 EST , CC: Dr. Glory Deal MD; Dr. 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 Glory Deal MD Status: DEP AMB Study: Shoulder min 2 Views Date of Exam: 07/07/24 Exam# [id number] Ordering Dr: Eric Carney MD [id number] STUDY: X-RAY - LEFT SHOULDER REASON FOR EXAM: Female, 68 years old. Pain. TECHNIQUE: 4 views of the left shoulder. COMPARISON: None. FINDINGS: Normal glenohumeral articulation. There is minimal acromioclavicular arthrosis. Normal acromion. Normal humeral head and visualized proximal humerus. The soft tissue structures are unremarkable. There is no demonstrated fracture. Normal visualized pulmonary apex. RAD/Shoulder min 2 Views IMPRESSION: Minimal acromioclavicular arthrosis. No demonstrated fracture. Electronically Signed: Micah Gutierrez MD at 15:34 EST Reading Location ID and State: [facility] / [place] , Service support , CC: Dr. Glory Deal MD; Dr. 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 Glory Deal MD Status: [facility] Study: SCRN MAMM (CAD)W/LUCINDA BILAT Date of Exam: 10/19 Exam# [id number] Ordering Dr: Glory Deal MD [id number] MAMMOGRAPHY - BILATERAL SCREENING REASON FOR EXAM: Female, 68 years old. Routine annual screening examination. PERTINENT HISTORY: Non-contributory. History of remote left excisional breast biopsy. TECHNIQUE: Digital bilateral breast lucinda (3D mammographic acquisition) in the CC and MLO projections. 2-D mediolateral oblique (MLO) and craniocaudad (CC) views of both breasts were obtained. CAD: Full Field Digital Mammography with Computer Added Detection was performed. COMPARISON: Comparison is made with prior study June 11, 2023 and June 04, 2022. FINDINGS: Breast Composition: The breasts are heterogeneously dense, which may obscure small masses. There are no dominant masses or suspicious calcifications. No other significant abnormalities are identified. There has been no significant change since the prior study. BI/SCRN MAMM (CAD)W/LUCINDA BILAT IMPRESSION: Stable bilateral screening mammogram. Yearly follow-up mammogram recommended. (A) ASSESSMENT CATEGORY: BIRADS Category 1: Negative. A letter regarding these results will be sent to the patient by the facility within 30 days. Approximately 10% of breast cancers are not detected by mammography. A normal mammogram should not delay biopsy of a clinically suspicious abnormality. [id number] Electronically Signed: Dimitri Ordonez MD at 14:30 EST , CC: Dr. 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 Marlon suresh DO Age/Sex: 68/F Location: [facility] [place] Status: Signed Intake Vital Signs 09/09/23 08:02 Height 5 ft 2 in Weight: 140 lb BMI 25.6 BP 135/73 H Blood Pressure Location Rt brachial Position Standing Respiration 18 Pulse 73 Pulse Source Monitor Temp 98.4 F Pulse Oximetry (%) 95 Oxygen Delivery Method room air Intake Visit Reasons: RIGHT KNEE Allergies house dust Allergy (Intermediate, Verified 03/11/24 12:58) Other tree and shrub pollen Allergy (Intermediate, Verified 03/11/24 12:58) Other chocolate flavor Allergy (Verified 03/11/24 12:58) Unknown cosmetic Allergy (Verified 03/11/24 12:58) NEEDS FOLLOW-UP fexofenadine (From Ariadna) Allergy (Verified 03/11/24 12:58) Unknown nut - unspecified Allergy (Verified 03/11/24 12:58) NEEDS FOLLOW-UP pineapple Allergy (Verified 03/11/24 12:58) Unknown adhesive tape Adverse Reaction (Verified 03/11/24 12:58) unknown amoxicillin (Amoxicillin) Adverse Reaction (Verified 03/11/24 12:58) Other atropine (From ) Adverse Reaction (Verified 03/11/24 12:58) trouble breathing avocado Adverse Reaction (Verified 03/11/24 12:58) UNKNOWN bupropion HCl (From Wellbutrin) Adverse Reaction (Verified 03/11/24 12:58) Other egg Adverse Reaction (Verified 03/11/24 12:58) Other erythromycin base Adverse Reaction (Verified 03/11/24 12:58) Diarrhea hyoscyamine (From ) Adverse Reaction (Verified 03/11/24 12:58) trouble breathing morphine Adverse Reaction (Verified 03/11/24 12:58) Itching phenobarbital (From ) Adverse Reaction (Verified 03/11/24 12:58) trouble breathing scopolamine (From ) Adverse Reaction (Verified 03/11/24 12:58) trouble breathing Medications ???Medication ???Instructions ???Recorded ???Confirmed ???Type lansoprazole 30 mg capsule,delayed 30 mg PO DAILY Gerd 02/06/14 03/11/24 History release ascorbic acid (vitamin C) 1,000 mg 1,000 mg PO DAILY 07/31/17 03/11/24 History tablet garlic 1 tab PO BID 07/31/17 03/11/24 History amlodipine 10 mg tablet 10 mg PO DAILY #30 tabs 05/17/21 03/11/24 Rx cetirizine 10 mg tablet 10 mg PO DAILY PRN 09/08/22 03/11/24 History Lactobacillus acidophilus 1 tab PO DAILY 07/30/23 03/11/24 History (Acidophilus chewable tablet) ashwagandha extract 120 mg capsule mg PO DAILY 07/30/23 03/11/24 History cinnamon bark 500 mg capsule 500 mg PO DAILY 07/30/23 03/11/24 History (Cinnamon) cranberry 400 mg capsule 400 mg PO DAILY 07/30/23 03/11/24 History cyclobenzaprine 10 mg tablet See Rx Instructions PO .COMPLEX 07/30/23 03/11/24 History magnesium oxide 400 mg PO BID 07/30/23 03/11/24 History melatonin 5 mg capsule See Rx Instructions PO DAILY 07/30/23 03/11/24 History multivitamin (One Daily 1 tab PO DAILY 07/30/23 03/11/24 History Multivitamin tablet) msbltmvloqdb-birmhbve-sm tein 1 tab PO DAILY 07/30/23 03/11/24 History tablet (Vision Plus Lutein tablet) omega 0-yrw-hzw-fish oil 1,200 mg cap PO 07/30/23 03/11/24 History (144 mg-216 mg) capsule (Fish Oil) pramipexole 0.125 mg tablet mg PO QHS 07/30/23 03/11/24 History quercetin 500 mg capsule 250 mg PO 07/30/23 03/11/24 History sumatriptan succinate 100 mg tablet 100 mg PO .COMPLEX 07/30/23 03/11/24 History trazodone 50 mg tablet 50 mg PO QHS 07/30/23 03/11/24 History venlafaxine 75 mg tablet 75 mg PO BID Depression 07/30/23 03/11/24 History vitamin B complex 1 tab PO DAILY 07/30/23 03/11/24 History acetaminophen 500 mg tablet 500 mg PO Q6H PRN 03/11/24 03/11/24 History (Tylenol Extra Strength) docusate sodium 50 mg capsule 100 mg PO DAILY stool softner 03/11/24 03/11/24 History (Stool Softener) Have you fallen in the past year?: Yes PFSH Medical History Aftercare following right elbow joint replacement surgery Dizziness Fall Depression Contusion of hand Contusion of right shoulder region Concussion Melanoma GERD (gastroesophageal reflux disease) Osteopenia IBS (irritable bowel syndrome) Hypoglycemia Low calcium levels Anxiety and depression child Difficulty balancing Incontinence Back pain Asthma Knee pain Hay fever Arthritis Surgical History S/P laminectomy with spinal fusion History of laminectomy H/O left breast biopsy S/P breast lumpectomy Hx of knee surgery Family History Father Cancer skin cancer; basal cell Other Asthma Colon cancer (more content not included)... Normal [facility] Basophil percentageOrdered B y: Houston Wheeler on 10-29-2023 Basophil percentage < 1.0 mg/dL 0.55-1.02 [facility] No Panel InformationOrdered By: Houston Wheeler on 10-29-2023 Bedside Estimated GFR (eGFR) > 60.0000 mL/min >60 [facility] Absolute lymphocyte countOrd ered By: Raad Garrett on 08-06-2023 Lymphocytes Auto (Unsp spec) [#/Vol] 2.48 10*3/uL 0.83-4.51 [facility] Alternaria alternata IgE ser umOrdered By: Raad Garrett on 08-06-2023 A. alternata IgE Qn (S) <0.10 kU/L Class 0 [facility] Basophil percentageOrdered B y: Raad Garrett on 08-06-2023 Basophils/100 WBC (Bld) 0.8 % 0-1 [facility] Eosinophils/100 WBC (Bld) 2.0 % 0-5 [facility] Neutrophils (Bld) [#/Vol] 2.6 10*3/uL 2.0-7.7 [facility] Neutrophils/100 WBC (Bld) 43.9 % 47-70 [facility] WBC (Bld) [#/Vol] 5.9 10*3/uL 4.4-11.0 [facility] Blood erythrocytes count (nu mber/volume)Ordered By: Raad Garrett on 08-06-2023 RBC (Bld) [#/Vol] 4.23 10*6/uL 4.2-5.4 [facility] Blood hemoglobin measurement (mass/volume)Ordered By: Raad Garrett on 08-06-2023 Hemoglobin (Bld) [Mass/Vol] 13.6 g/dL 12.0-15.0 [facility] Blood lymphocytes/100 leukoc ytesOrdered By: Raad Garrett on 08-06-2023 Lymphocytes/100 WBC (Bld) 42.1 % 19-41 [facility] Blood monocytes/100 leukocyt esOrdered By: Raad Garrett on 08-06-2023 Monocytes/100 WBC (Bld) 11.0 % 0-10 [facility] Blood platelet mean volumeOr dered By: Raad Garrett on 08-06-2023 Platelet mean volume (Bld) [Entitic vol] 10.1 fL 6.2-12.0 [facility] Determination of erythrocyte mean corpuscular volume (MCV)Ordered By: Raad Garrett on 08-06-2023 MCV (RBC) [Entitic vol] 102.8 fL 81-99 [facility] Hematocrit Auto (Bld) [Volum e fraction]Ordered By: Raad Garrett on 08-06-2023 Hematocrit (Bld) [Volume fraction] 43.5 % 37-47 [facility] Laboratory - Hematology and Cell countsOrdered By: Raad Garrett on 08-06-2023 Erythrocyte distribution width (RBC) [Entitic vol] 55.3 fL 35.1-43.9 [facility] Erythrocyte distribution width (RBC) [Ratio] 14.5 % 11.6-14.6 [facility] Immature granulocytes/100 WBC (Bld) 0.200 % 0.0-0.9 [facility] Comment on above: IG% - Immature Granu locytes (promyelocytes, myelocytes and metamyelocytes) > 1% indicates that a LEFT SHIFT is Present. MCH (RBC) [Entitic mass] 32.2 pg 27.0-32.0 [facility] Nucleated RBC/100 WBC (Bld) [Ratio] 0 % 0-5 [facility] MCHC Auto (RBC) [Mass/Vol]Or dered By: Raad Garrett on 08-06-2023 MCHC (RBC) [Mass/Vol] 31.3 g/dL 32-36 [facility] No Panel InformationOrdered By: Raad Garrett on 08-06-2023 Cat Hair Allergen <0.10 kU/L Class 0 [facility] Common Ragweed (Short) Allergen <0.10 kU/L Class 0 [facility] Immunoglobulin E 19 IU/mL 6-495 [facility] Maple ([place]) Allergen IgE Ab <0.10 kU/L Class 0 [facility] Mouse Urine Allergen IgE Antibody <0.10 kU/L Class 0 [facility] Comment on above: Performed at: [address] [id number] Director: Asa Bliss MD, Phone: [phone] [facility] Comment Comment . [facility] Comment on above: Levels of Specific I gE Class Description of Class ----- < 0.10 0 Negative 0.10 - 0.31 0/I Equivocal/Low 0.32 - 0.55 I Low 0.56 - 1.40 II Moderate 1.41 - 3.90 III High 3.91 - 19.00 IV Very High 19.01 - 100.00 V Very High >100.00 Very High [place] Tree Allergen <0.10 kU/L Class 0 [facility] Platelets bldOrdered By: Thompson on 08-06-2023 Platelets (Bld) [#/Vol] 263 10*3/uL 150-450 [facility] Rough pigweed specific IgE a ntibody assayOrdered By: Raad Garrett on 08-06-2023 Rough Pigweed IgE Qn (S) <0.10 kU/L Class 0 [facility] Serum Bulgarian sycamore IgE antibody assay (units/volume)Ordered By: Raad Garrett on 08-06-2023 Bulgarian [place] IgE Qn (S) <0.10 kU/L Class 0 [facility] Serum Aspergillus fumigatus IgE antibody assay (units/volume)Ordered By: Raad Garrett on 08-06-2023 A. fumigatus IgE Qn (S) 0.31 kU/L Class 0/I [facility] Serum Bermuda grass IgE anti body assay (units/volume)Ordered By: Raad Garrett on 08-06-2023 Bermuda grass IgE Qn (S) <0.10 kU/L Class 0 [facility] Serum Cladosporium herbarum IgE antibody assay (units/volume)Ordered By: Raad Garrett on 08-06-2023 C. herbarum IgE Qn (S) <0.10 kU/L Class [address] [facility] Serum Dermatophagoides farin ae specific IgE antibody assay (units/volume)Ordered By: Raad Garrett on 08-06-2023 Bulgarian house dust mite IgE Qn (S) <0.10 kU/L Class 0 [facility] Serum house dust mi te IgE antibody assay (units/volume)Ordered By: Raad Garrett on 08-06-2023 house dust mite IgE Qn (S) <0.10 kU/L Class 0 [facility] Serum Penicillium notatum Ig E antibody assay (units/volume)Ordered By: Raad Garrett on 08-06-2023 P. notatum IgE Qn (S) <0.10 kU/L Class 0 [facility] Serum Periplaneta americana IgE antibody assay (units/volume)Ordered By: Raad Garrett on 08-06-2023 Bulgarian Cockroach IgE Qn (S) <0.10 kU/L Class 0 [facility] Serum Vincentian thistle specif ic IgE antibody assayOrdered By: Raad Garrett on 08-06-2023 Saltwort IgE Qn (S) <0.10 kU/L Class 0 [facility] [place] Serum birch specific IgE ant ibody assayOrdered By: Raad Garrett on 08-06-2023 Silver Birch IgE Qn (S) <0.10 kU/L Class 0 [facility] Serum black walnut IgE antib tosin assay (units/volume)Ordered By: Raad Garrett on 08-06-2023 Black Belle Mina IgE Qn (S) <0.10 kU/L Class 0 [facility] Serum cottonwood IgE antibod y assay (units/volume)Ordered By: Raad Garrett on 08-06-2023 Fair Play IgE Qn (S) <0.10 kU/L Class 0 [facility] Serum dog epithelium IgE ant ibody assay (units/volume)Ordered By: Raad Garrett on 08-06-2023 Dog epithelium IgE Qn (S) <0.10 kU/L Class 0 [facility] Serum mountain cedar specifi c IgE antibody assayOrdered By: Raad Garrett on 08-06-2023 Mountain Juniper IgE Qn (S) <0.10 kU/L Class 0 [facility] Serum pecan or hickory nut I gE antibody assay (units/volume)Ordered By: Raad Garrett on 08-06-2023 Pecan or Young Nut IgE Qn (S) <0.10 kU/L Class 0 [facility] Serum sheep sorrel IgE antib tosin assay (units/volume)Ordered By: Raad Garrett on 08-06-2023 Sheep Ollie IgE Qn (S) <0.10 kU/L Class 0 [facility] Serum bryon IgE antibody a ssay (units/volume)Ordered By: Raad Garrett on 08-06-2023 Bryon IgE Qn (S) <0.10 kU/L Class 0 [facility] Serum white jahaira IgE antibody assay (units/volume)Ordered By: Raad Garrett on 08-06-2023 White Jahaira IgE Qn (S) <0.10 kU/L Class 0 [facility] Serum white elm IgE antibody assay (units/volume)Ordered By: Raad Garrett on 08-06-2023 White Elm IgE Qn (S) <0.10 kU/L Class 0 [facility] Serum white mulberry IgE ant ibody assay (units/volume)Ordered By: Raad Garrett on 08-06-2023 White mulberry IgE Qn (S) <0.10 kU/L Class 0 [facility] Absolute lymphocyte countOrd ered By: Glory Deal on 06-11-2023 Lymphocytes Auto (Unsp spec) [#/Vol] 1.68 10*3/uL 0.83-4.51 [facility] Basophil percentageOrdered B y: Glory Deal on 06-11-2023 Basophils/100 WBC (Bld) 0.5 % 0-1 [facility] Bilirubin [Mass/Vol] 0.30 mg/dL 0.20-1.00 [facility] Comment on above: For patients on eltr ombopag therapy, use of Dimension [place] TBIL is not recommended. Chloride [Moles/Vol] 110 mmol/L 98-107 [facility] Eosinophils/100 WBC (Bld) 2.3 % 0-5 [facility] Glucose [Mass/Vol] 116 mg/dL 74-106 [facility] Comment on above: Fasting Glucose resu lt from 100 to 125 mg/dL suggests IMPAIRED HOMEOSTASIS per A.D.A. criteria. Neutrophils (Bld) [#/Vol] 4.3 10*3/uL 2.0-7.7 [facility] Neutrophils/100 WBC (Bld) 63.7 % 47-70 [facility] Potassium [Moles/Vol] 3.8 mmol/L 3.5-5.1 [facility] Protein [Mass/Vol] 7.5 g/dL 6.4-8.2 [facility] Sodium [Moles/Vol] 142 mmol/L 136-145 [facility] WBC (Bld) [#/Vol] 6.7 10*3/uL 4.4-11.0 [facility] Blood erythrocytes count (nu mber/volume)Ordered By: Glory Deal on 06-11-2023 RBC (Bld) [#/Vol] 4.19 10*6/uL 4.2-5.4 [facility] [place] Blood hemoglobin measurement (mass/volume)Ordered By: Glory Deal on 06-11-2023 Hemoglobin (Bld) [Mass/Vol] 13.6 g/dL 12.0-15.0 [facility] Blood lymphocytes/100 leukoc ytesOrdered By: Glory Deal on 06-11-2023 Lymphocytes/100 WBC (Bld) 25.2 % 19-41 [facility] Blood monocytes/100 leukocyt esOrdered By: Glory Deal on 06-11-2023 Monocytes/100 WBC (Bld) 8.1 % 0-10 [facility] Blood platelet mean volumeOr dered By: Glory Deal on 06-11-2023 Platelet mean volume (Bld) [Entitic vol] 10.1 fL 6.2-12.0 [facility] Determination of erythrocyte mean corpuscular volume (MCV)Ordered By: Glory Deal on 06-11-2023 MCV (RBC) [Entitic vol] 101.4 fL 81-99 [facility] Hematocrit Auto (Bld) [Volum e fraction]Ordered By: Glory Deal on 06-11-2023 Hematocrit (Bld) [Volume fraction] 42.5 % 37-47 [facility] Laboratory - Chemistry and C hemistry - challengeOrdered By: Glory Deal on 06-11-2023 ALP [Catalytic activity/Vol] 115 U/L 45-117 [facility] ALT [Catalytic activity/Vol] 17 U/L 13-56 [facility] CO2 [Moles/Vol] 28.0 mmol/L 21.0-32.0 [facility] Globulin (S) [Mass/Vol] 3.3 g/dL 2.2-4.2 [facility] Urea nitrogen/Creatinine [Mass ratio] 19.9 mg/mg 10-20 [facility] Laboratory - Hematology and Cell countsOrdered By: Glory Deal on 06-11-2023 Erythrocyte distribution width (RBC) [Entitic vol] 52.4 fL 35.1-43.9 [facility] Erythrocyte distribution width (RBC) [Ratio] 13.9 % 11.6-14.6 [facility] Immature granulocytes/100 WBC (Bld) 0.200 % 0.0-0.9 [facility] Comment on above: IG% - Immature Granu locytes (promyelocytes, myelocytes and metamyelocytes) > 1% indicates that a LEFT SHIFT is Present. MCH (RBC) [Entitic mass] 32.5 pg 27.0-32.0 [facility] Nucleated RBC/100 WBC (Bld) [Ratio] 0 % 0-5 [facility] MCHC Auto (RBC) [Mass/Vol]Or dered By: Glory Deal on 06-11-2023 MCHC (RBC) [Mass/Vol] 32.0 g/dL 32-36 [facility] No Panel InformationOrdered By: Glory Deal on 06-11-2023 Estimated GFR (MDRD) Amer 106 mL/min >60 [facility] Comment on above: GFR Calc Estimated GFR (MDRD) Non-Af Amer 88 mL/min >60 [facility] Comment on above: Non- GFR Calc Platelets bldOrdered By: David Deal on 06-11-2023 Platelets (Bld) [#/Vol] 249 10*3/uL 150-450 [facility] Serum or plasma albumin ayden urement (mass/volume)Ordered By: Glory Deal on 06-11-2023 Albumin [Mass/Vol] 4.2 g/dL 3.2-5.0 [facility] Serum or plasma albumin/glob ulin mass ratioOrdered By: Glory Deal on 06-11-2023 Albumin/Globulin [Mass ratio] 1.3 {ratio} 0.9-2.4 [facility] Serum or plasma calcium ayden urement (mass/volume)Ordered By: Glory Deal on 06-11-2023 Calcium [Mass/Vol] 9.8 mg/dL 8.5-10.1 [facility] Serum or plasma creatinine m easurement (mass/volume)Ordered By: Glory Deal on 06-11-2023 Creatinine [Mass/Vol] 0.70 mg/dL 0.55-1.02 [facility] Comment on above: The validity of the calculated GFR & GFRAA in patients over 70 years has not been determined. Clinical correlation is essential. Serum or plasma urea nitroge n measurement (mass/volume)Ordered By: Glory Deal on 06-11-2023 Urea nitrogen [Mass/Vol] 14 mg/dL 7-18 [facility] Thin prep Papanicolaou smear with manual screeningOrdered By: Glory Deal on 06-11-2023 Thin prep Papanicolaou smear with manual screening 19 U/L 15-37 [facility] Thin prep Papanicolaou smear with manual screening 4 5-15 [facility] Post Op (Orthopaedic Surgery )on 04-17-2023 Post Op (Orthopaedic Surgery) Diagnoses/Problems Assessed Spinal stenosis of lumbar region with neurogenic claudication (724.03) (M48.062) Orders Lumbar pain Xray BN Spine, Lumbosacral; 2 or 3 Views; Status:Hold For - Scheduling,Retrospective By Protocol Authorization; Requested for:[id number]; Radiologist to Determine Optimal Study : Y What are the patient's signs and symptoms? : PAIN Lumbar pain, Lumbar radiculopathy Renew: Cyclobenzaprine HCl - 10 MG Oral Tablet; TAKE 1 TABLET Every twelve hours Lumbar pain, Lumbar radiculopathy, Spinal stenosis of lumbar region with neurogenic claudication Physical Therapy - General Referral Evaluation and Treatment Evaluate AND Treat Status: Hold For - Scheduling,Retrospective Authorization Requested for: [id number] Spinal stenosis of lumbar region with neurogenic claudication Renew: oxyCODONE HCl - 5 MG Oral Tablet; TAKE 1 TABLET EVERY 6 HOURS NEEDED FOR BREAKTHROUGH PAIN Chief Complaint Post op History of Present Illness Alisha returns today for her first postop appointment. Date of surgery was March 20 where she underwent a revision, L1-2 laminectomy and fusion with a dural repair. Overall, the patient is doing very well. She [...] well as a refill on the muscle relaxer. On exam, her incision is healing appropriately. No signs of infection or drainage. We will obtain x-rays of her lumbar spine and review the images after they are done. We did discuss her limitations and restrictions moving forward. When she is off of her pain medication she will be able to start to drive. We talked about slowly increasing her lifting restrictions every week. She can slowly start to bend, and twist more. She was given a referral for outpatient physical therapy and she will follow-up with us in 2 months at the [facility] office and I will obtain x-rays done as well. I reviewed the complete 30-point review of systems that was documented on the scanned patient intake form. All other systems are non-contributory except as defined in history of present illness. This note was dictated using speech recognition software and was not corrected for spelling or grammatical errors . Active Problems Problems Lumbar pain (724.2) (M54.50) Lumbar radiculopathy (724.4) (M54.16) Spinal stenosis of lumbar region with neurogenic claudication (724.03) (M48.062) Allergies Medication No Known Drug Allergies Recorded By: Evon Montez; 03/15/2023 9:27:11 AM Current Meds Medication NameInstruction Chlorhexidine Gluconate 0.12 % Mouth/Throat SolutionRINSE MOUTH WITH 15ML (1 CAPFUL) FOR 30 SECONDS AM AND PM AFTER TOOTHBRUSHING. EXPECTORATE AFTER RINSING, DO NOT SWALLOW Cyclobenzaprine HCl - 10 MG Oral TabletTAKE 1 TABLET Every twelve hours Hibiclens 4 % External LiquidUSE DIRECTED. Methocarbamol 500 MG Oral Tablettake one to two tablets every 8 hours prn. oxyCODONE HCl - 5 MG Oral TabletTAKE 1 TABLET EVERY 6 HOURS NEEDED FOR BREAKTHROUGH PAIN. Signatures Electronically signed by : Maggie Augustine PA-C; Apr 18 2023 12:15PM EST (Author) [facility] 04-[facility]-2023 XR Lumbar spine AP and Lateral Please click on the link to view the study images Normal [facility] 170 DO Work Phone: SPINE, LUMBOSACRAL; 2 OR 3 V IEWSon 04-17-2023 SPINE, LUMBOSACRAL; 2 OR 3 VIEWS Patient Name: ALISHA AG STUDY: SPINE, LUMBOSACRAL; 2 OR 3 VIEWS INDICATION: LUMBAR PAIN. COMPARISON: April 26, 2021 ACCESSION NUMBER(S): [id number] ORDERING CLINICIAN: ANIA DOS SANTOS FINDINGS: Interval revision of lumbar fusion now with laminectomy and fusion hardware L1-L5. Posterolateral fusion masses placed new at the L1-2 levels. Other fusion changes are satisfactory. No evidence of complication. IMPRESSION: L1-L5 laminectomy with fusion as above without evidence of complication. Electronically signed by: KIERSTEN VERMA MD [facility] Daily Progress Note-Orthopae dicson 03-26-2023 Daily Progress Note-Orthopaedics Service: Orthopaedics Subjective Data: ALISHA AG is a 67 year old Female who is Hospital Day # 7 and POD #6 for 1. REVISION L1-2 LAMINECTOMY AND FUSION;2. Repair of incidental durotomy. NAEON. AFVSS. Pain controlled on current regimen other than at R ASIS. Nausea and CONTI much improved. Denies any new onset numbness, tingling or weakness. Denies chest pain, dyspnea, or calf tenderness. Denies any fever or chills. Voiding. Passing flatus. Objective Data: Physical Exam Narrative: Physical Exam: Constitutional: NAD, resting comfortably in bed Skin: Warm and dry, no rashes Eyes: EOMI, clear sclera ENMT: MMM HEENT: Neck supple without apparent injury, EOMI, MMM Respiratory: NWOB on 2L CV: RRR per peripheral pulses, limbs wwp GI: soft, non-distended Lymph: No apparent LAD Neuro: JALLOH spontaneously, weight checker II - XII grossly intact Psych: Appropriate mood and behavior MSK: - incision c/d/i L1: SILT L2: SILT Hip flexors 5/5 Left; 5/5 Right L3: SILT Knee extension 5/5 Left; 5/5 Right L4: SILT Tib Ant. (Dorsiflexion) 5/5 Left; 5/5 Right L5: SILT EHL5/5 Left; 5/5 Right S1: SILT Planter flexion 5/5 Left; 5/5 Right Assessment and Plan: Code Status: Code StatusFull Code Assessment: 67F PMH HTN s/p revision L1-2 laminectomy and fusion, dural repair on 03/[address] Dos Santos. Pre-op LE symptoms improved. - Regular diet. Bowel Regimen: Colace, senna, miralax. - Multimodal pain therapy: scheduled tylenol, prn oxycodone, decadron, robaxin, toradol; continue nausea meds - mIVF to continue until patient is tolerating good PO intake, HLIV w/ good PO; Will monitor BMP on POD 1 and prn thereafter - Weightbearing: WBAT, OOBAT. No HOB restrictions as dura was repaired with water seal. PT/OT consult, to see by POD1 at the latest. - Encourage IS - Perioperative ancef q8 for 24 hours; complete - No indication for transfusion; monitor CBC POD1, repeat prn thereafter. - DVT PPx: SCD, no chemoPPx - Maintain PIV - No pro - Drain: HVx1 removed - Continue home meds: as indicated - Glycemic: No issues Dispo: recd [facility]; dc home today This plan was discussed with the attending, Dr. Dos Santos.. Haja Heredia MD, PGY-4 Orthopedic Spine Team: Burke Johns, PGY-2 ([id number]), available on doc halo Haja Heredia PGY-4 ([id number]), available on doc halo Please call motion picture actor resident ([phone]) nights after 6pm and weekends Attestation: Note Completion: I am a: Resident/Fellow Attending AttestationI reviewed the resident/fellows documentation and discussed the patient with the resident/fellow. I agree with the resident/fellows medical decision making as documented in the note. 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 complains of nausea. Alerted RN. Short Term Goals: Bed Mobility: Date [id number] Bed Mobility: Deming Level Goalindependent Bed Mobility: Time Frame for Goal2 wks Transfer: Established Transfer: Transfer Type Uhrotjy-ej-wbiwu/chair-t o-bed; jqr-wg-icapo/stand-to-si t Transfer: [place] Level Goalmodified independent Transfer: Assistive Device Goalrolling walker Transfer: Time Frame for Goal2 wks Gait: Established Gait: Dem[place] Level Goalmodified independent Gait: Assistive Device Goalrolling walker Gait: Distance [id number] feet Gait: Time Frame for Goal2 wks Stair: Established Stair: Dem[place] Level Goalmodified independent Stair: Goal Detailsascend/descend 11 stairs with LRD Stair: Time Frame for Goal2 wks Balance: Established Balance: Goal Detailsno LOB with transfers/ambulation Balance: Time Frame for Goal2 wks Electronic Signatures: Monserrat Duckworth (VISUAL AID EXPERT) (Signed 26-Mar-2023 10:16) Authored: Info, Short Term Goals Milena Etienne (PT) (Signed 27-Mar-2023 07:54) Co-Signer: Info, Short Term Goals Last Updated: 27-Mar-2023 07:54 by Milena Etienne (PT) [facility] Rehab Note-individual therap yon 03-26-2023 Rehab Note-individual therapy Rehab: Info: Disciplinephysical home therapy teacher Mode of Treatmentphysical therapy; individual therapy Time IN13:35 Time OUT14:13 Total Treatment [id number] Patient Effortgood Symptoms Noted During/After Treatmentdizziness Treatment Considerations/CommentsP t. supine in bed upon arrival. Pt. has spine precautions. Pt. has a wh. walker for home. Pt. reports feeling tentative about going home because she will be alone. Pt. however does state that her neighbor, sister and child ansari friend can help. Urged pt. to have someone with her on the stairs to at least transfer wh. walker from bottom of steps to top. Patient Response to TreatmentPt. willing to participate at this time. Pt. able to amb. and negotiate steps - Pt. also required increased time to use bathroom. Pt. tolerated treatment well. Discussed proper car transfer technique. Mobility/Tone: Bed Mobility Assessment/Interventions rolling right; sidelying to sit Roll Right Deming (Bed Mobility)standby assist Rhaixfrhb-ex-Kgc Deming (Bed Mobility)standby assist Assistive Device (Bed Mobility)bed rails Comment, Bed MobilityPt. required cues to slow down as pt. ready to hop up oob - re- education on taking time when changing positions. Transfer Assessment/Interventions sit to stand transfer; stand to sit transfer Sit-Stand Deming (Transfers)verbal cues; nonverbal cues (demo/gesture); standby assist; Reminders for hand placement and to avoid pulling up on walker. When pt. getting close to surface to sit , pt. leaves walker(lets go) and turns. Education on safety however pt. rolled her eyes in response. Pt. is worried about being alone but not following instructions for safety. Stand-Sit Deming (Transfers)verbal cues; nonverbal cues (demo/gesture); standby assist Gait/Stairs LocomotionPt. amb. to and from bathroom using a wh. walker and sba - pt. flexes forward and therefore requires reminders on posture. Pt. later stated I don't want to use that walker reminded pt. that the less she leans on the walker the sooner she can wean off the walker. Pt. amb. 60' x 2 using a wh. walker and sba.; stairs negotiation Stairs Negotiation (Stairs)Re demonstrated stair technique with cane and rail. Pt. struggled-- however pt. was not straightening right knee (strong leg) when necessary. Suggested pt. follow last sessions technique with both hands on rail and going up and down sideways and have neighbor transfer walker to second floor. Safety Issues Impacting Function (Mobility)safety precaution awareness; impulsivity Outcomes Tools: Turning from your back to your side while in a flat bed without using bedrails a little Moving from lying on your back to sitting on the side of a flat bed without using bedrailsa little Moving to and from bed to chair (including a wheelchair)a little Standing up from a chair using your arms (e.g. wheelchair or bedside chair)a little To walk in hospital rooma ana lilia Climbing 3-5 steps with railinga ana lilia AM-PAC (PT) Total Score18 Short Term Goals: Bed Mobility: Date [id number] Bed Mobility: Deming Level Goalindependent Bed Mobility: Time Frame for Goal2 wks Transfer: Established Transfer: Transfer Type Iqnulus-yh-krvfc/chair-t o-bed; mfn-qd-adpxy/stand-to-si t Transfer: Dem[place] Level Goalmodified independent Transfer: Assistive Device Goalrolling walker Transfer: Time Frame for Goal2 wks Gait: Established Gait: [place] Level Goalmodified independent Gait: Assistive Device Goalrolling walker Gait: Distance [id number] feet Gait: Time Frame for Goal2 wks Stair: Established Stair: Dem[place] Level Goalmodified independent Stair: Goal Detailsascend/descend 11 stairs with LRD Stair: Time Frame for Goal2 wks Balance: Established Balance: Goal Detailsno LOB with transfers/ambulation Balance: Time Frame for Goal2 wks Education: Learnerpatient Barriers to Learningno barrier Methoddemonstration; verbal Outcome Evaluation1=partially meets; needs review Topicrehab plan of care; precautions; discharge recommendations including destination and/or equipment; fall prevention; proper use of adaptive equipment to increase safety and decrease fall risk Outcome Summary: Progress: Occupational Therapyprogress toward functional goals as expected Electronic Signatures: Monserrat Duckworth (VISUAL AID EXPERT) (Signed 26-Mar-2023 14:49) Entered: Info, Mobility/Tone, Short Term Goals, Outcomes Tools, Education, Outcome Summary Authored: Info, Short Term Goals, Mobility/Tone, Outcomes Tools, Education, Outcome Summary Milena Etienne (PT) (Signed 27-Mar-2023 07:54) Co-Signer: Info, Short Term Goals Last Updated: 27-Mar-2023 07:54 by Milena Etienne (PT) Normal [facility] Daily Progress Note-Orthopae dicson 03-25-2023 Daily Progress Note-Orthopaedics Service: Orthopaedics Subjective Data: ALISHA AG is a 67 year old Female who is Hospital Day # 6 and POD #5 for 1. REVISION L1-2 LAMINECTOMY AND FUSION;2. Repair of incidental durotomy. NAEON. AFVSS. Pain controlled on current regimen other than at R ASIS. Nausea and CONTI much improved. Denies any new onset numbness, tingling or weakness. Denies chest pain, dyspnea, or calf tenderness. Denies any fever or chills. Voiding. Passing flatus. Objective Data: Objective Information: T PRBPMAPSpO2 [id number]/7197% Date/Time03/25 0: 0: 0: 0: 0:08 Range(35.5C - 36.4C ) (80 - 123 ) (16 - 18 ) (102 - 143 )/ (69 - 89 ) (92% - 97% ) As of 24-Mar-2023 08:24:00, patient is on 2 L/min of oxygen via nasal cannula. Pain reported at 03/24 20:34: 1 = Mild Physical Exam Narrative: Physical Exam: Constitutional: NAD, resting comfortably in bed Skin: Warm and dry, no rashes Eyes: EOMI, clear sclera ENMT: MMM HEENT: Neck supple without apparent injury, EOMI, MMM Respiratory: NWOB on 2L CV: RRR per peripheral pulses, limbs wwp GI: soft, non-distended Lymph: No apparent LAD Neuro: JALLOH spontaneously, weight checker II - XII grossly intact Psych: Appropriate mood and behavior MSK: - incision c/d/i L1: SILT L2: SILT Hip flexors 5/5 Left; 5/5 Right L3: SILT Knee extension 5/5 Left; 5/5 Right L4: SILT Tib Ant. (Dorsiflexion) 5/5 Left; 5/5 Right L5: SILT EHL5/5 Left; 5/5 Right S1: SILT Planter flexion 5/5 Left; 5/5 Right Assessment and Plan: Code Status: Code StatusFull Code Assessment: 67F PMH HTN s/p revision L1-2 laminectomy and fusion, dural repair on 03/[address] Dos Santos. Pre-op LE symptoms improved. - Regular diet. Bowel Regimen: Colace, senna, miralax. - Multimodal pain therapy: scheduled tylenol, prn oxycodone, decadron, robaxin, toradol; continue nausea meds - mIVF to continue until patient is tolerating good PO intake, HLIV w/ good PO; Will monitor BMP on POD 1 and prn thereafter - Weightbearing: WBAT, OOBAT. No HOB restrictions as dura was repaired with water seal. PT/OT consult, to see by POD1 at the latest. - Encourage IS - Perioperative ancef q8 for 24 hours; complete - No indication for transfusion; monitor CBC POD1, repeat prn thereafter. - DVT PPx: SCD, no chemoPPx - Maintain PIV - No pro - Drain: HVx1 removed - Continue home meds: as indicated - Glycemic: No issues Dispo: recd C; possible d/c this PM pending stairs This plan was discussed with the attending, Dr. Dos Santos.. Brennon Johns MD Orthopaedic Surgery PGY-2 ([id number] DocHalo preferred) Orthopedic Spine Team: Burke Johns PGY-2 ([id number]), available on doc halo Haja Heredia PGY-4 ([id number]), available on doc halo Please call motion picture actor resident ([phone]) nights after 6pm and weekends Attestation: Note Completion: I am a: Resident/Fellow Attending AttestationI reviewed the resident/fellows documentation and discussed the patient with the resident/fellow. I agree with the resident/fellows medical decision making as documented in the note. Electronic Signatures: Ania Dos Santos) (Signed 08-Apr-2023 09:44) Authored: Note Completion Co-Signer: Service, Subjective Data, Objective Data, Assessment and Plan, Note Completion Tyron Johns (Resident)) (Signed 25-Mar-2023 06:21) Authored: Service, Subjective Data, Objective Data, Assessment and Plan, Note Completion Last Updated: 08-Apr-2023 09:44 by Ania Dos Santos) Normal [facility] Rehab Note-individual therap yon 03-25-2023 Rehab Note-individual therapy Rehab: Info: Disciplinephysical home therapy teacher Mode of Treatmentindividual therapy; physical therapy Time IN13:10 Time OUT13:42 Total Treatment [id number] Patient in ... at end of sessionchair; alarm off; not on at start of visit Communicated with ... at end of sessionbedside nurse; RN notified of pt participation and up to chair at end of session. Patient Effortexcellent Symptoms Noted During/After Treatmentnone Treatment Considerations/CommentsP t supine in bed when approached for therapy. Per handoff with nursing prior to therapy visit, in the past 24 hours pt has the following acute changes in condition: none. Patient's pain is under control and vitals are stable. Additional concerns for this patient are: none. 2L O2 via NC spinal precautions Patient Response to TreatmentPt is pleasant and agreeable to therapy. no complaints of dizziness or nausea. Patient/Family/Caregiver Comments/ObservationsPt able to complete all mobility with SBA and min cues for safety. Pre Treatment CommentsBP in jidypwq=539/69mmHg, BP in standing= 120/80mmHg. SpO2=97-98% on 2L O2 throughout session. Mobility/Tone: Bed Mobility Assessment/Interventions supine to sit; sit to supine Zufdic-ki-Mvc Deming (Bed Mobility)SBA/SUP Nnt-uq-Wkujxq Deming (Bed Mobility)SBA/SUP Comment, Bed MobilityAll bed mobility with good demo of spinal precautions. Transfer Assessment/Interventions sit to stand transfer; stand to sit transfer; bed to chair transfer; chair to bed transfer; toilet transfer Bed-Chair Deming (Transfers)standby assist Bed-Chair Assistive Device (Transfers)walker, front-wheeled Chair-Bed Deming (Transfers)standby assist Chair-Bed Assistive Device (Transfers)walker, front-wheeled Sit-Stand Deming (Transfers)standby assist Sit-Stand Assistive Device (Transfers)walker, front-wheeled Stand-Sit Deming (Transfers)standby assist Stand-Sit Assistive Device (Transfers)walker, front-wheeled Toilet Deming (Transfers)standby assist Toilet Assistive Device (Transfer)grab bars/safety frame; walker, front-wheeled Gait/Stairs Locomotiongait/ambulatio n assistive device; gait/ambulation independence; distance ambulated; stairs negotiation Gait Locomotion (Gait)standby assist Assistive Device (Gait Training)walker, front-wheeled Distance in Feet (Gait Training)50'x2 Stairs Negotiation (Stairs)stairs activity; handrail location; number of stairs; ascending stairs technique Deming Level (Stairs Training)contact guard Handrail Location (Stairs Training)left side (ascending) Number of Stairs (Stairs Training)Pt ascending/descending 4 (6) steps with single UE on rail on L with CGA and +LOB x1 with min/modA to recover, then up/down 4 steps with B UE on single rail with CGA throughout, no LOB Ascending Stairs Technique (Stairs Training)gjtj-xt-gzxc (ascending); gpmo-ge-fshm (descending) Sensory: Pre-Treatment Pain Rating2/10 Comment, Pre/Post Treatment Paingroin pain, RN aware and pt medicated prior to therapy. Outcomes Tools: Turning from your back to your side while in a flat bed without using bedrails a little Moving from lying on your back to sitting on the side of a flat bed without using bedrailsa little Moving to and from bed to chair (including a wheelchair)a little Standing up from a chair using your arms (e.g. wheelchair or bedside chair)a little To walk in hospital rooma little Climbing 3-5 steps with railinga ana lilia AM-PAC (PT) Total Score18 Short Term Goals: Bed Mobility: Date [id number] Bed Mobility: Deming Level Goalindependent Bed Mobility: Time Frame for Goal2 wks Transfer: Established Transfer: Transfer Type Nuvwspl-fs-mjlui/chair-t o-bed; ytp-er-opwmj/stand-to-si t Transfer: Deming Level Goalmodified independent Transfer: Assistive Device Goalrolling walker Transfer: Time Frame for Goal2 wks Gait: Established Gait: Deming Level Goalmodified independent Gait: Assistive Device Goalrolling walker Gait: Distance [id number] feet Gait: Time Frame for Goal2 wks Stair: Established Stair: Deming Level Goalmodified independent Stair: Goal Detailsascend/descend 11 stairs with LRD Stair: Time Frame for Goal2 wks Balance: Established Balance: Goal Detailsno LOB with transfers/ambulation Balance: Time Frame for Goal2 wks Education: Learnerpatient Barriers to Learningno barrier Methodverbal Outcome Evaluation1=partially meets; needs review Topicprecautions; discharge recommendations including destination and/or equipment; proper use of adaptive equipment to increase safety and decrease fall risk Education - TopicPt educated on spinal precautions, safe stair negotiation. Outcome Summary: Progress: Physical Therapyprogress toward functional goals as expected Outcome Summary: Physical TherapyPt i (more content not included)... Normal [facility] Daily Progress Note-Orthopaalex singh 03-24-2023 Daily Progress Note-Orthopaedics Service: Orthopaedics Subjective Data: ALISHA AG is a 67 year old Female who is Hospital Day # 5 and POD #4 for 1. REVISION L1-2 LAMINECTOMY AND FUSION;2. Repair of incidental durotomy. NAEON. AFVSS. Pain controlled on current regimen other than at R ASIS. persistent nausea. CONTI improved. Denies any new onset numbness, tingling or weakness. Denies chest pain, dyspnea, or calf tenderness. Denies any fever or chills. Voiding. Objective Data: Physical Exam Narrative: Physical Exam: Constitutional: NAD, resting comfortably in bed Skin: Warm and dry, no rashes Eyes: EOMI, clear sclera ENMT: MMM HEENT: Neck supple without apparent injury, EOMI, MMM Respiratory: NWOB on 2L CV: RRR per peripheral pulses, limbs wwp GI: soft, non-distended Lymph: No apparent LAD Neuro: JALLOH spontaneously, weight checker II - XII grossly intact Psych: Appropriate mood and behavior MSK: - incision c/d/i L1: SILT L2: SILT Hip flexors 5/5 Left; 5/5 Right L3: SILT Knee extension 5/5 Left; 5/5 Right L4: SILT Tib Ant. (Dorsiflexion) 5/5 Left; 5/5 Right L5: SILT EHL5/5 Left; 5/5 Right S1: SILT Planter flexion 5/5 Left; 5/5 Right Assessment and Plan: Code Status: Code StatusFull Code Assessment: 67F PMH HTN s/p revision L1-2 laminectomy and fusion, dural repair on 03/[address] Dos Santos. Pre-op LE symptoms improved. - Clear liquid diet, RN okay to advance as tolerated with good bowel sounds. Bowel Regimen: Colace, senna, miralax. - Multimodal pain therapy: scheduled tylenol, prn oxycodone, decadron, robaxin, toradol; continue nausea meds; decadron 3 doses today - mIVF to continue until patient is tolerating good PO intake, HLIV w/ good PO; Will monitor BMP on POD 1 and prn thereafter - Weightbearing: WBAT, OOBAT. No HOB restrictions as dura was repaired with water seal. PT/OT consult, to see by POD1 at the latest. - Encourage IS - Perioperative ancef q8 for 24 hours; complete - No indication for transfusion; monitor CBC POD1, repeat prn thereafter. - DVT PPx: SCD, no chemoPPx - Maintain PIV - No pro - Drain: HVx1 removed - Continue home meds: as indicated - Glycemic: No issues Dispo: recd HHC; pending stairs and resolution of nausea This plan was discussed with the attending, Dr. Dos Santos.. Haja Heredia MD, PGY-4 Orthopedic Spine Team: Burke Johns, PGY-2 ([id number]), available on doc halo Haja Heredia PGY-4 ([id number]), available on doc halo Please call motion picture actor resident ([phone]) nights after 6pm and weekends Attestation: Note Completion: I am a: Resident/Fellow Attending AttestationI reviewed the resident/fellows documentation and discussed the patient with the resident/fellow. I agree with the resident/fellows medical decision making as documented in the note. Electronic Signatures: Ania Dos Santos) (Signed 08-Apr-2023 09:42) Authored: Note Completion Co-Signer: Service, Subjective Data, Objective Data, Assessment and Plan, Note Completion Haja Heredia (Resident)) (Signed 24-Mar-2023 11:13) Authored: Service, Subjective Data, Objective Data, Assessment and Plan, Note Completion Last Updated: 08-Apr-2023 09:42 by Ania Dos Santos) Normal [facility] Rehab Note-individual therap yon 03-24-2023 Rehab Note-individual therapy Rehab: Info: Disciplinephysical home therapy teacher Mode of Treatmentindividual therapy; physical therapy Time IN10:35 Time OUT10:50 Total Treatment [id number] Patient in ... at end of sessionbed, 3 railings up Communicated with ... at end of sessionbedside nurse Patient Effortgood Symptoms Noted During/After Treatmentdizziness Treatment Considerations/Commentsp t supine in bed at the start of the session, spinal precautions, IV intact Patient Response to Treatmentpleasant, cooperative, pt limited by nausea however able to tolerate x2 standing trials and ambulate up to 15' using wheeled walker Mobility/Tone: Bed Mobility Assessment/Interventions supine to sit; sit to supine Ovyvkj-tz-Wrp Deming (Bed Mobility)contact guard Fwa-vg-Taolbd Deming (Bed Mobility)contact guard Assistive Device (Bed Mobility)bed rails Comment, Bed MobilityHOB elevated, log roll technique Transfer Assessment/Interventions sit to stand transfer; stand to sit transfer Sit-Stand Deming (Transfers)contact guard Sit-Stand Assistive Device (Transfers)walker, front-wheeled Stand-Sit Assistive Device (Transfers)walker, front-wheeled Gait/Stairs Locomotiongait/ambulatio n assistive device; gait/ambulation independence; distance ambulated; gait deviations Gait Locomotion (Gait)contact guard Assistive Device (Gait Training)walker, front-wheeled Distance in Feet (Gait Training)15 Gait Deviations Identified (Gait)decreased hernan Comment, Gait/Stairs Trainingpt had 1 LOB requiring min assist to correct Sensory: Pre-Treatment Pain Rating4/10 Post-Treatment Pain Rating4/10 Pain LimitationEducated patient on positioning to reduce pain Outcomes Tools: Turning from your back to your side while in a flat bed without using bedrails a little Moving from lying on your back to sitting on the side of a flat bed without using bedrailsa little Moving to and from bed to chair (including a wheelchair)a little Standing up from a chair using your arms (e.g. wheelchair or bedside chair)a little To walk in hospital rooma little Climbing 3-5 steps with railinga lot AM-PAC (PT) Total Score17 Short Term Goals: Bed Mobility: Date [id number] Bed Mobility: Deming Level Goalindependent Bed Mobility: Time Frame for Goal2 wks Transfer: Established Transfer: Transfer Type Aevbyyc-yt-djfgb/chair-t o-bed; uhp-lx-cgycp/stand-to-si t Transfer: Deming Level Goalmodified independent Transfer: Assistive Device Goalrolling walker Transfer: Time Frame for Goal2 wks Gait: Established Gait: Deming Level Goalmodified independent Gait: Assistive Device Goalrolling walker Gait: Distance [id number] feet Gait: Time Frame for Goal2 wks Stair: Established [id number] Stair: Deming Level Goalmodified independent Stair: Goal Detailsascend/descend 11 stairs with LRD Stair: Time Frame for Goal2 wks Balance: Established [id number] Balance: Goal Detailsno LOB with transfers/ambulation Balance: Time Frame for Goal2 wks Education: Learnerpatient Barriers to Learningacuteness of illness barrier Methodverbal Outcome Evaluation1=partially meets; needs review Topicfall prevention; proper use of adaptive equipment to increase safety and decrease fall risk; positioning to decrease pain Outcome Summary: Progress: Physical Therapyprogress toward functional goals as expected Electronic Signatures: Tae Escobar (VISUAL AID EXPERT) (Signed 24-Mar-2023 13:21) Authored: Info, Mobility/Tone, Sensory, Outcomes Tools, Short Term Goals, Education, Outcome Summary Milena Etienne (PT) (Signed 25-Mar-2023 07:49) Co-Signer: Info, Mobility/Tone, Sensory, Outcomes Tools, Short Term Goals, Education, Outcome Summary Last Updated: 25-Mar-2023 07:49 by Milena Etienne (PT) Normal [facility] BASIC METABOLIC PANELon 08-2 eGFR FEMALE >90 Normal >90 [facility] Comment on above: Result Comment: CALC ULATIONS OF ESTIMATED GFR ARE PERFORMED USING THE 2020 CKD-EPI STUDY REFIT EQUATION WITHOUT THE RACE VARIABLE FOR THE IDMS-TRACEABLE CREATININE METHODS. https://jasn.asnjournals.org/content//ASN.17473 90831 Performed By: #### T +S #### [facility] [address] [place] [address] HCO3 (Bld) [Moles/Vol] 27 mmol/L Normal 21 - 32 [facility] Comment on above: Performed By: #### T +S #### [facility] [address] [place] [address] Anion gap [Moles/Vol] 15 mmol/L Normal 10 - 20 [facility] 12 DO Work Phone: Comment on above: Performed By: #### T +S #### [facility] [address] [place] [address] Calcium [Mass/Vol] 9.1 mg/dL Normal 8.6 - 10.6 [facility] 12 DO Work Phone: Comment on above: Performed By: #### T +S #### [facility] [address] [place] [address] Chloride [Moles/Vol] 101 mmol/L Normal 98 - 107 [facility] 12 DO Work Phone: Comment on above: Performed By: #### T +S #### [facility] [address] [place] [address] Creatinine [Mass/Vol] 0.50 mg/dL Normal 0.50 - 1.05 [facility] 12 DO Work Phone: Comment on above: Reference Range: 0.5 0 - 1.05 Performed By: #### T +S #### [facility] [address] [place] [address] Glucose [Mass/Vol] 114 mg/dL High 74 - 99 [facility] 12 DO Work Phone: Comment on above: Performed By: #### T +S #### [facility] [address] [place] [address] Potassium [Moles/Vol] 3.6 mmol/L Normal 3.5 - 5.3 [facility] 12 DO Work Phone: Comment on above: Performed By: #### T +S #### [facility] [address] [place] [address] Sodium [Moles/Vol] 139 mmol/L Normal 136 - 145 [facility] 12 DO Work Phone: Comment on above: Performed By: #### T +S #### [facility] [address] [place] [address] Urea nitrogen [Mass/Vol] 11 mg/dL Normal 6 - 23 [facility] 12 DO Work Phone: Comment on above: Performed By: #### T +S #### [facility] [address] [place] [address] CBCon 03-23-2023 Erythrocyte distribution width (RBC) [Ratio] 12.8 % Normal 11.5 - 14.5 [facility] Comment on above: Performed By: #### C BC #### [facility] [address] [place] [address] Hematocrit (Bld) [Volume fraction] 41.0 % Normal 36.0 - 46.0 [facility] Comment on above: Performed By: #### C BC #### [facility] [address] [place] [address] Hemoglobin (Bld) [Mass/Vol] 13.4 g/dL Normal 12.0 - 16.0 [facility] Comment on above: Performed By: #### C BC #### [facility] [address] [place] [address] MCHC (RBC) [Mass/Vol] 32.7 g/dL Normal 32.0 - 36.0 [facility] Comment on above: Performed By: #### C BC #### [facility] [address] [place] [address] MCV (RBC) [Entitic vol] 102 fL High 80 - 100 [facility] Comment on above: Performed By: #### C BC #### [facility] [address] [place] [address] NUCLEATED RBC 0.0 /100 WBC Normal 0.0-0.0 [facility] Comment on above: Performed By: #### C BC #### [facility] [address] [place] [address] Platelets (Bld) [#/Vol] 207 10*3/uL Normal 150 - 450 [facility] Comment on above: Performed By: #### C BC #### [facility] [address] [place] [address] RBC 4.02 x10E12/L Normal 4.00 - 5.20 [facility] Comment on above: Performed By: #### C BC #### [facility] [address] [place] [address] WBC (Bld) [#/Vol] 9.9 10*3/uL Normal 4.4 - 11.3 [facility] Comment on above: Performed By: #### C BC #### [facility] [address] [place] [address] Daily Progress Note-Orthopae vasuson 03-23-2023 Daily Progress Note-Orthopaedics Service: Orthopaedics Subjective Data: ALISHA AG is a 67 year old Female who is Hospital Day # 4 and POD #3 for 1. REVISION L1-2 LAMINECTOMY AND FUSION;2. Repair of incidental durotomy. NAEON. AFVSS. Pain controlled on current regimen. +nausea. CONTI improved. Denies any new onset numbness, tingling or weakness. Denies chest pain, dyspnea, or calf tenderness. Denies any fever or chills. Voiding. Objective Data: Physical Exam Narrative: Physical Exam: Constitutional: NAD, resting comfortably in bed Skin: Warm and dry, no rashes Eyes: EOMI, clear sclera ENMT: MMM HEENT: Neck supple without apparent injury, EOMI, MMM Respiratory: NWOB on 2L CV: RRR per peripheral pulses, limbs wwp GI: soft, non-distended Lymph: No apparent LAD Neuro: JALLOH spontaneously, weight checker II - XII grossly intact Psych: Appropriate mood and behavior MSK: - incision c/d/i - drain holding suction L1: SILT L2: SILT Hip flexors 5/5 Left; 5/5 Right L3: SILT Knee extension 5/5 Left; 5/5 Right L4: SILT Tib Ant. (Dorsiflexion) 5/5 Left; 5/5 Right L5: SILT EHL5/5 Left; 5/5 Right S1: SILT Planter flexion 5/5 Left; 5/5 Right Assessment and Plan: Code Status: Code StatusFull Code Assessment: 67F PMH HTN s/p revision L1-2 laminectomy and fusion, dural repair on 03/[address] Dos Santos. Pre-op LE symptoms improved. - Clear liquid diet, RN okay to advance as tolerated with good bowel sounds. Bowel Regimen: Colace, senna, miralax. - Multimodal pain therapy: scheduled tylenol, prn oxycodone, decadron, robaxin, toradol; continue nausea meds - mIVF to continue until patient is tolerating good PO intake, HLIV w/ good PO; Will monitor BMP on POD 1 and prn thereafter - Weightbearing: WBAT, OOBAT. No HOB restrictions as dura was repaired with water seal. PT/OT consult, to see by POD1 at the latest. - Encourage IS - Perioperative ancef q8 for 24 hours; complete - No indication for transfusion; monitor CBC POD1, repeat prn thereafter. - DVT PPx: SCD, no chemoPPx - Maintain PIV - No pro - Drain: HVx1 removed - Continue home meds: as indicated - Glycemic: No issues Dispo: recd HHC; pending stairs and resolution of nausea This plan was discussed with the attending, Dr. Dos Santos.. Haja Heredia MD, PGY-4 Orthopedic Spine Team: Burke Johns, PGY-2 ([id number]), available on doc halo Haja Heredia PGY-4 ([id number]), available on doc halo Please call motion picture actor resident ([phone]) nights after 6pm and weekends Attestation: Note Completion: I am a: Resident/Fellow Attending AttestationI reviewed the resident/fellows documentation and discussed the patient with the resident/fellow. I agree with the resident/fellows medical decision making as documented in the note. Electronic Signatures: Ania Dos Santos) (Signed 06-Apr-2023 12:05) Authored: Note Completion Co-Signer: Service, Subjective Data, Objective Data, Assessment and Plan, Note Completion Haja Heredia (Resident)) (Signed 23-Mar-2023 10:31) Authored: Service, Subjective Data, Objective Data, Assessment and Plan, Note Completion Last Updated: 06-Apr-2023 12:05 by Ania Dos Santos) Normal [facility] Laboratory - Chemistry and C hemistry - challengeon 03-23-2023 CO2 [Moles/Vol] 27 mmol/L 21 - 32 [facility] 12 DO Work Phone: Laboratory - Hematology and Cell countson 03-23-2023 Erythrocyte distribution width (RBC) [Ratio] 12.8 % See Below [facility] 12 DO Work Phone: Comment on above: Reference Range: 11. 5 - 14.5 Hematocrit (Bld) [Volume fraction] 41.0 % See Below [facility] 12 DO Work Phone: Comment on above: Reference Range: 36. 0 - 46.0 Hemoglobin (Bld) [Mass/Vol] 13.4 g/dL See Below [facility] 12 DO Work Phone: Comment on above: Reference Range: 12. 0 - 16.0 MCHC (RBC) [Mass/Vol] 32.7 g/dL See Below [facility] 12 DO Work Phone: Comment on above: Reference Range: 32. 0 - 36.0 MCV (RBC) [Entitic vol] 102 fL above high threshold 80 - 100 [facility] 12 DO Work Phone: Platelets (Bld) [#/Vol] 207 10*3/uL 150 - 450 [facility] 12 DO Work Phone: RBC (Bld) [#/Vol] 4.02 {x10E12/L} See Below [facility] 12 DO Work Phone: Comment on above: Reference Range: 4.0 0 - 5.20 WBC (Bld) [#/Vol] 9.9 10*3/uL 4.4 - 11.3 [facility] 12 DO Work Phone: No Panel Informationon 03-23 0.0 {/100_WBC} 0.0-0.0 [facility] 12 DO Work Phone: >90 >90 [facility] 12 DO Work Phone: Comment on above: CALCULATIONS OF SHAKILA MATED GFR ARE PERFORMED USING THE 2020 CKD-EPI STUDY REFIT EQUATION WITHOUT THE RACE VARIABLE FOR THE IDMS-TRACEABLE CREATININE METHODS.https://jasn.asnjournals.org/content/22/A SN.7381545234 Rehab Note-individual therap yon 03-23-2023 Rehab Note-individual therapy Rehab: Info: Disciplinephysical home therapy teacher Mode of Treatmentindividual therapy; physical therapy Time IN10:07 Time OUT10:17 Total Treatment [id number] Patient in ... at end of sessionbed, 3 railings up Communicated with ... at end of sessionbedside nurse Patient Effortgood Symptoms Noted During/After Treatmentdizziness Treatment Considerations/Commentsp t supine in bed at the start of the session, spinal precautions, IV intact Patient Response to Treatmentpleasant, cooperative, pt limited by nausea only tolerating sitting EOB for 5 minutes. pt demonstrates understanding of spinal precautions and log roll technique. Mobility/Tone: Bed Mobility Assessment/Interventions supine to sit; sit to supine Vxdqdi-wh-Yhb Deming (Bed Mobility)contact guard Ldy-dq-Eecidn Deming (Bed Mobility)contact guard Assistive Device (Bed Mobility)bed rails Comment, Bed MobilityHOB elevated, log roll technique Sensory: Pre-Treatment Pain Rating4/10 Post-Treatment Pain Rating4/10 Pain LimitationEducated patient on positioning to reduce pain Outcomes Tools: Turning from your back to your side while in a flat bed without using bedrails a little Moving from lying on your back to sitting on the side of a flat bed without using bedrailsa little Moving to and from bed to chair (including a wheelchair)a little Standing up from a chair using your arms (e.g. wheelchair or bedside chair)a little To walk in hospital rooma little Climbing 3-5 steps with railinga lot AM-PAC (PT) Total Score17 Short Term Goals: Bed Mobility: Date [id number] Bed Mobility: Deming Level Goalindependent Bed Mobility: Time Frame for Goal2 wks Transfer: Established Transfer: Transfer Type Kzbitwd-tv-deeid/chair-t o-bed; yfb-ew-bffau/stand-to-si t Transfer: Deming Level Goalmodified independent Transfer: Assistive Device Goalrolling walker Transfer: Time Frame for Goal2 wks Gait: Established [id number] Gait: Deming Level Goalmodified independent Gait: Assistive Device Goalrolling walker Gait: Distance [id number] feet Gait: Time Frame for Goal2 wks Stair: Established [id number] Stair: Deming Level Goalmodified independent Stair: Goal Detailsascend/descend 11 stairs with LRD Stair: Time Frame for Goal2 wks Balance: Established [id number] Balance: Goal Detailsno LOB with transfers/ambulation Balance: Time Frame for Goal2 wks Education: Learnerpatient Barriers to Learningacuteness of illness barrier Methodverbal Outcome Evaluation1=partially meets; needs review Topicfall prevention; proper use of adaptive equipment to increase safety and decrease fall risk; positioning to decrease pain Outcome Summary: Progress: Physical Therapyprogress toward functional goals as expected Electronic Signatures: Tae Escobar (VISUAL AID EXPERT) (Signed 23-Mar-2023 10:36) Authored: Info, Mobility/Tone, Sensory, Outcomes Tools, Short Term Goals, Education, Outcome Summary Milena Etienne (PT) (Signed 23-Mar-2023 10:52) Co-Signer: Info, Mobility/Tone, Sensory, Outcomes Tools, Short Term Goals, Education, Outcome Summary Last Updated: 23-Mar-2023 10:52 by Milena Etienne (PT) Normal [facility] BASIC METABOLIC PANELon 08-2 Anion gap [Moles/Vol] 12 mmol/L Normal 10 - 20 [facility] Comment on above: Performed By: #### T +S #### [facility] [address] [place] [address] Calcium [Mass/Vol] 9.2 mg/dL Normal 8.6 - 10.6 [facility] Comment on above: Performed By: #### T +S #### [facility] [address] [place] [address] Chloride [Moles/Vol] 102 mmol/L Normal 98 - 107 [facility] Comment on above: Performed By: #### T +S #### [facility] [address] [place] [address] Creatinine [Mass/Vol] 0.56 mg/dL Normal 0.50 - 1.05 [facility] Comment on above: Performed By: #### T +S #### [facility] [address] [place] [address] eGFR FEMALE >90 Normal >90 [facility] Comment on above: Result Comment: CALC ULATIONS OF ESTIMATED GFR ARE PERFORMED USING THE 2020 CKD-EPI STUDY REFIT EQUATION WITHOUT THE RACE VARIABLE FOR THE IDMS-TRACEABLE CREATININE METHODS. https://jasn.asnjournals.org/content//ASN.92439 99237 Performed By: #### T +S #### [facility] [address] [place] [address] Glucose [Mass/Vol] 105 mg/dL High 74 - 99 [facility] Comment on above: Performed By: #### T +S #### [facility] [address] [place] [address] HCO3 (Bld) [Moles/Vol] 31 mmol/L Normal 21 - 32 [facility] Comment on above: Performed By: #### T +S #### [facility] [address] [place] [address] Potassium [Moles/Vol] 3.9 mmol/L Normal 3.5 - 5.3 [facility] Comment on above: Performed By: #### T +S #### [facility] [address] [place] [address] Sodium [Moles/Vol] 141 mmol/L Normal 136 - 145 [facility] Comment on above: Performed By: #### T +S #### [facility] [address] [place] [address] Urea nitrogen [Mass/Vol] 12 mg/dL Normal 6 - 23 [facility] Comment on above: Performed By: #### T +S #### [facility] [address] [place] [address] CBCon 03-22-2023 Erythrocyte distribution width (RBC) [Ratio] 13.1 % Normal 11.5 - 14.5 [facility] Comment on above: Performed By: #### C BC #### [facility] [address] [place] [address] Hematocrit (Bld) [Volume fraction] 38.3 % Normal 36.0 - 46.0 [facility] Comment on above: Performed By: #### C BC #### [facility] [address] [place] [address] Hemoglobin (Bld) [Mass/Vol] 12.3 g/dL Normal 12.0 - 16.0 [facility] Comment on above: Performed By: #### C BC #### [facility] [address] [place] [address] MCHC (RBC) [Mass/Vol] 32.1 g/dL Normal 32.0 - 36.0 [facility] Comment on above: Performed By: #### C BC #### [facility] [address] [place] [address] MCV (RBC) [Entitic vol] 102 fL High 80 - 100 [facility] Comment on above: Performed By: #### C BC #### [facility] [address] [place] [address] NUCLEATED RBC 0.0 /100 WBC Normal 0.0-0.0 [facility] Comment on above: Performed By: #### C BC #### [facility] [address] [place] [address] Platelets (Bld) [#/Vol] 221 10*3/uL Normal 150 - 450 [facility] Comment on above: Performed By: #### C BC #### [facility] [address] [place] [address] RBC 3.74 x10E12/L Low 4.00 - 5.20 [facility] Comment on above: Performed By: #### C BC #### [facility] [address] [place] [address] WBC (Bld) [#/Vol] 12.6 10*3/uL High 4.4 - 11.3 [facility] Comment on above: Performed By: #### C BC #### [facility] [address] [place] [address] Daily Progress Note-Orthopae vasuson 03-22-2023 Daily Progress Note-Orthopaedics Service: Orthopaedics Subjective Data: ALISHA AG is a 67 year old Female who is Hospital Day # 3 and POD #2 for 1. REVISION L1-2 LAMINECTOMY AND FUSION;2. Repair of incidental durotomy. NAEON. AFVSS. Pain controlled on current regimen. +nausea. CONTI improved. Denies any new onset numbness, tingling or weakness. Denies chest pain, dyspnea, or calf tenderness. Denies any fever or chills. Voiding. Objective Data: Objective Information: T PRBPMAPSpO2 [id number]/[id number]% Date/Time03/22 4: 4: 4: 4: 4:26 Range(36.2C - 37C ) (54 - 75 ) (16 - 17 ) (137 - 173 )/ (68 - 81 ) (96% - 99% ) Highest temp of 37 C was recorded at 03/21 12:33 Pain reported at 03/22 4:38: 9 = Severe Physical Exam Narrative: Physical Exam: Constitutional: NAD, resting comfortably in bed Skin: Warm and dry, no rashes Eyes: EOMI, clear sclera ENMT: MMM HEENT: Neck supple without apparent injury, EOMI, MMM Respiratory: NWOB on 2L CV: RRR per peripheral pulses, limbs wwp GI: soft, non-distended Lymph: No apparent LAD Neuro: JALLOH spontaneously, weight checker II - XII grossly intact Psych: Appropriate mood and behavior MSK: - incision c/d/i - drain holding suction L1: SILT L2: SILT Hip flexors 5/5 Left; 5/5 Right L3: SILT Knee extension 5/5 Left; 5/5 Right L4: SILT Tib Ant. (Dorsiflexion) 5/5 Left; 5/5 Right L5: SILT EHL5/5 Left; 5/5 Right S1: SILT Planter flexion 5/5 Left; 5/5 Right Assessment and Plan: Code Status: Code StatusFull Code Assessment: 67F PMH HTN s/p revision L1-2 laminectomy and fusion, dural repair on 03/[address] Dos Santos - Clear liquid diet, RN okay to advance as tolerated with good bowel sounds. Bowel Regimen: Colace, senna, miralax. - Multimodal pain therapy: scheduled tylenol, prn oxycodone, decadron, robaxin, toradol - mIVF to continue until patient is tolerating good PO intake, HLIV w/ good PO; Will monitor BMP on POD 1 and prn thereafter - Weightbearing: WBAT, OOBAT. No HOB restrictions as dura was repaired with water seal. PT/OT consult, to see by POD1 at the latest. - Encourage IS - Perioperative ancef q8 for 24 hours; complete - No indication for transfusion; monitor CBC POD1, repeat prn thereafter. - DVT PPx: SCD, no chemoPPx - Maintain PIV - No pro - Drain: HVx1, please record output at the end of each 8 hour nursing shift - Continue home meds: as indicated - Glycemic: No issues Dispo: recd C; anticipate d/c tomorrow This plan was discussed with the attending, Dr. Dos Santos.. This patient will be followed by ortho spine service: Brennon Johns PGY2 - [id number] [address] PGY4 - [id number] If after 6pm M-F, weekends, holidays please contact [phone] for oncall resident for urgent questions/concerns. Brennon Johns MD Orthopedic Surgery, PGY-2 Attestation: Note Completion: I am a: Resident/Fellow Attending AttestationI reviewed the resident/fellows documentation and discussed the patient with the resident/fellow. I agree with the resident/fellows medical decision making as documented in the note. Electronic Signatures: Ania Dos Santos) (Signed 05-Apr-2023 09:12) Authored: Note Completion Co-Signer: Service, Subjective Data, Objective Data, Assessment and Plan, Note Completion Tyron Johns (Resident)) (Signed 22-Mar-2023 06:39) Authored: Service, Subjective Data, Objective Data, Assessment and Plan, Note Completion Last Updated: 05-Apr-2023 09:12 by Ania Dos Santos) Normal [facility] Laboratory - Chemistry and C hemistry - challengeon 03-22-2023 Anion gap [Moles/Vol] 12 mmol/L 10 - 20 [facility] [facility] DO Work Phone: Calcium [Mass/Vol] 9.2 mg/dL 8.6 - 10.6 [facility] 12 DO Work Phone: Chloride [Moles/Vol] 102 mmol/L 98 - 107 [facility] 12 DO Work Phone: CO2 [Moles/Vol] 31 mmol/L 21 - 32 [facility] 12 DO Work Phone: Creatinine [Mass/Vol] 0.56 mg/dL See Below [facility] 12 DO Work Phone: Comment on above: Reference Range: 0.5 0 - 1.05 Glucose [Mass/Vol] 105 mg/dL above high threshold 74 - 99 [facility] 12 DO Work Phone: Potassium [Moles/Vol] 3.9 mmol/L 3.5 - 5.3 [facility] 12 DO Work Phone: Sodium [Moles/Vol] 141 mmol/L 136 - 145 [facility] 12 DO Work Phone: Urea nitrogen [Mass/Vol] 12 mg/dL 6 - 23 [facility] 12 DO Work Phone: Laboratory - Hematology and Cell countson 03-22-2023 Erythrocyte distribution width (RBC) [Ratio] 13.1 % See Below [facility] 12 DO Work Phone: Comment on above: Reference Range: 11. 5 - 14.5 Hematocrit (Bld) [Volume fraction] 38.3 % See Below [facility] 12 DO Work Phone: Comment on above: Reference Range: 36. 0 - 46.0 Hemoglobin (Bld) [Mass/Vol] 12.3 g/dL See Below [facility] 12 DO Work Phone: Comment on above: Reference Range: 12. 0 - 16.0 MCHC (RBC) [Mass/Vol] 32.1 g/dL See Below [facility] 12 DO Work Phone: Comment on above: Reference Range: 32. 0 - 36.0 MCV (RBC) [Entitic vol] 102 fL above high threshold 80 - 100 [facility] 12 DO Work Phone: Platelets (Bld) [#/Vol] 221 10*3/uL 150 - 450 [facility] 12 DO Work Phone: RBC (Bld) [#/Vol] 3.74 {x10E12/L} below low threshold See Below [facility] 12 DO Work Phone: Comment on above: Reference Range: 4.0 0 - 5.20 WBC (Bld) [#/Vol] 12.6 10*3/uL above high threshold 4.4 - 11.3 [facility] 12 DO Work Phone: No Panel Informationon 03-22 >90 >90 [facility] 12 DO Work Phone: Comment on above: CALCULATIONS OF SHAKILA MATED GFR ARE PERFORMED USING THE 2020 CKD-EPI STUDY REFIT EQUATION WITHOUT THE RACE VARIABLE FOR THE IDMS-TRACEABLE CREATININE METHODS.https://jasn.asnjournals.org/content//A SN.8247561317 0.0 {/100_WBC} 0.0-0.0 [facility] 12 DO Work Phone: Rehab Note-individual therap yon 03-22-2023 Rehab Note-individual therapy Rehab: Info: Disciplinephysical home therapy teacher Mode of Treatmentindividual therapy; physical therapy Time IN08:58 Time OUT09:33 Total Treatment [id number] Patient in ... at end of sessionbed, 3 railings up; alarm off; not on at start of visit Communicated with ... at end of sessionbedside nurse Patient Effortgood Symptoms Noted During/After Treatmentnauseous; dizziness Treatment Considerations/CommentsP t. supine in bed upon arrival. Pt. has drain, PIV, purwick. Pt. will be going home post acute with low intensity therapy. Patient Response to TreatmentPt. willing to participate. Pt. however became nauseated when sitting up therefore pt. needed rest breaks - 3 attempts but pt. unable. Pt. soiled bed due to purwick not attached initially - Pt. rolled right /left several times to clean change. Mobility/Tone: Bed Mobility Assessment/Interventions rolling right; rolling left; sidelying to sit Roll Left Deming (Bed Mobility)contact guard; Pt. rolled side to side to remove soiled chux and replace. All lines tangled. Roll Right Deming (Bed Mobility)contact guard Jxuldivhu-xl-Pmd Deming (Bed Mobility)verbal cues; nonverbal cues (demo/gesture); contact guard; 1 person assist Assistive Device (Bed Mobility)bed rails Comment, Bed MobilityInstructed and assisted on log roll. Pt. sat up but became nauseated therefore returned to sidelying. Pt. attempted 2 more times unsuccessfully. Alerted RN Outcomes Tools: Turning from your back to your side while in a flat bed without using bedrails a little Moving from lying on your back to sitting on the side of a flat bed without using bedrailsa little Moving to and from bed to chair (including a wheelchair)a little Standing up from a chair using your arms (e.g. wheelchair or bedside chair)a little To walk in hospital rooma little Climbing 3-5 steps with railinga lot AM-PAC (PT) Total Score17 Short Term Goals: Bed Mobility: Date [id number] Bed Mobility: Deming Level Goalindependent Bed Mobility: Time Frame for Goal2 wks Transfer: Established Transfer: Transfer Type Swcoghz-ne-qyyrq/chair-t o-bed; whb-fv-xjtfh/stand-to-si t Transfer: Deming Level Goalmodified independent Transfer: Assistive Device Goalrolling walker Transfer: Time Frame for Goal2 wks Gait: Established Gait: Deming Level Goalmodified independent Gait: Assistive Device Goalrolling walker Gait: Distance [id number] feet Gait: Time Frame for Goal2 wks Stair: Established Stair: Deming Level Goalmodified independent Stair: Goal Detailsascend/descend 11 stairs with LRD Stair: Time Frame for Goal2 wks Balance: Established Balance: Goal Detailsno LOB with transfers/ambulation Balance: Time Frame for Goal2 wks Education: Learnerpatient Barriers to Learningno barrier Methoddemonstration; verbal Outcome Evaluation0=unable to meet; needs instruction Topicrehab plan of care; precautions; discharge recommendations including destination and/or equipment Electronic Signatures: Monserrat Duckworth (VISUAL AID EXPERT) (Signed 22-Mar-2023 10:02) Authored: Info, Mobility/Tone, Outcomes Tools, Short Term Goals, Education Milena Etienne (PT) (Signed 22-Mar-2023 10:08) Co-Signer: Info, Mobility/Tone, Outcomes Tools, Short Term Goals, Education Last Updated: 22-Mar-2023 10:08 by Milena Etienne (PT) Normal [facility] Admission Risk Screen - Adul ton 03-21-2023 Admission Risk Screen - Adult Allergies: Allergies: morphine: Itching Dilaudid: Anaphylaxis, Itching fexofenadine: Unknown Wellbutrin XL: Unknown triamcinolone: Unknown Intolerances: azithromycin: GI Upset Patient Verification: New W ID Band Applied in my Departmentyes Patient Identity Verified Bypatient ID Band FULL Name, include Middle, spelling matches patient's ID used for verificationyes ID Band Matches Patient ID used for Verficationyes ID Band MRN Matches EMR MRNyes Visitor Restriction: Coronavirus Visitor Restriction: Reasonable restrictions to in-person visitors will be observed due to current coronavirus pandemic. Travel History: COVID-19 Screening Completedno exposure or symptoms Travel or Exposure Past 30 DaysNO travel to International locations in the past 30 days Ebola AlertFor Ebola-like Symptoms: Isolate Patient and Notify Provider/Bumper Machine Operator For Contact: Notify Provider/Bumper Machine Operator Advance Directive: Advance Directive/DNRno Advance Directive Information Givenpatient/family declined [place] Fall Screen: History of falling (immediate or previous)no (0) Secondary Diagnosisno (0) Intravenous Therapy/ Heparin/Saline Lockyes (20) Gait/Transferringnormal/ bedrest/wheelchair (0) Ambulatory Aidsnone/bedrest/nurse assist (0) Mental Statusoriented to own ability (0) Score: Low risk (<25). Moderate risk (25-44). High risk (>44).20 [place] InterventionsMODERATE INTERVENTIONS: *Low Interventions Plus: * falls risk band/sticker applied to patient, *yellow non-skid footwear, *instruct to call for assistance before getting out of bed, *bed/chair/bedside commode/toilet alarms, *sensory devices/ambulatory aides available and in reach, *medications reviewed for potential side effects and care planning. Family Violence Screen: Are you or have you been threatened or abused physically, emotionally, or sexually by anyoneno Has anyone ever threatened to hurt your family or your petsno Does anyone try to keep you from having/contacting other friends or doing things outside your homeno Do you feel UNSAFE going back to the place where you are livingno Do you feel anyone has exploited or taken advantage of you financially or of your personal propertyno Clinical assessment: Are there any apparent signs of injuries/behaviors that could be related to abuse/neglectno Social Service Consult for abuse/neglect needed this visitno Functional Screen: Functional Screen: In the recent/past 2-4 weeks, patient or family have noticedno issues that require a speech/language consult at this time AM-PAC- Basic Mobility/Daily Activity: Patient baseline bedboundno Learning Assessment (Patient): Patient is Able to be Assessed for Learningyes Factors Influencing Readiness to Learnacuteness of illness Factors that Impact Ability to Learnnone Devices/Methods Used to Communicatenone Learning Preferencesverbal instruction Cultural Considerationsnone Developmental Considerationsnone Jain Considerationsnone Learning Assessment (Other Learner): Other learner availableno Depression Screen: During the past month, have you often been bothered by feeling down, depressed or hopelessno During the past month, have you often had little interest or pleasure in doing thingsno Have you had any thoughts of harming anyone elseno [place] Suicide: Risk Screen Not Applicable/Able to Answerable to be screened In the Past Month: Have you wished you were or could go to sleep and not wake upno In the Past Month: Have you had any actual thoughts of killing yourselfno Lifetime: Have you ever done, started to do, or prepared to do anything to end your lifeno [place] Suicide Risknegative Adult Nutrition Screen: Have you recently lost weight without tryingno Have you been eating poorly because of a decreased appetiteno Malnutrition Screening Tool Score0 Malnutrition Screening Tool RiskMST = 0 or 1 Not at risk. Eating well with little or no weight loss Nutrition Consult needed this visitno Can Patient Participate in Room Serviceyes Patient requires Paper Dishes/Plastic Utensilsno Pain Screen: Pain Scalenumerical 0-10 Pain Scale Educationteaching provided Current Pain Level5 = Moderate Acceptable Pain Level3 = Mild Expression of Pain (nonverbal)none Chronic Painno Spiritual Screen: Are there any cultural, spiritual, cheondoism practices/values/needs that are important for us to knowno CAGE: Is this an injured patient at a Trauma Center ([facility]/[place] /[place]): no Vaccinations: Vaccination - Influenza Vaccination Screen: Is it flu season (between and October 26)No Vaccination - Pneumonia Vaccination Screen: Patient has received a previous pneumonia vaccine:yes (given either at or after age 65) Main: Skin - Main Scale: Main: Sensory Perception (response to environ (more content not included)... Normal [facility] BASIC METABOLIC PANELon 08-2 Anion gap [Moles/Vol] 16 mmol/L Normal 10 - 20 [facility] Comment on above: Performed By: #### B MP #### [facility] [address] [place] [address] Calcium [Mass/Vol] 9.5 mg/dL Normal 8.6 - 10.6 [facility] Comment on above: Performed By: #### B MP #### [facility] [address] [place] [address] Chloride [Moles/Vol] 106 mmol/L Normal 98 - 107 [facility] Comment on above: Performed By: #### B MP #### [facility] [address] [place] [address] Creatinine [Mass/Vol] 0.64 mg/dL Normal 0.50 - 1.05 [facility] Comment on above: Performed By: #### B MP #### [facility] [address] [place] [address] eGFR FEMALE >90 Normal >90 [facility] Comment on above: Result Comment: CALC ULATIONS OF ESTIMATED GFR ARE PERFORMED USING THE 2020 CKD-EPI STUDY REFIT EQUATION WITHOUT THE RACE VARIABLE FOR THE IDMS-TRACEABLE CREATININE METHODS. https://jasn.asnjournals.org/content/early//ASN. 36169 Performed By: #### B MP #### [facility] [address] [place] [address] Glucose [Mass/Vol] 134 mg/dL High 74 - 99 [facility] Comment on above: Performed By: #### B MP #### [facility] [address] [place] [address] HCO3 (Bld) [Moles/Vol] 26 mmol/L Normal 21 - 32 [facility] Comment on above: Performed By: #### B MP #### [facility] [address] [place] [address] Potassium [Moles/Vol] 4.5 mmol/L Normal 3.5 - 5.3 [facility] Comment on above: Performed By: #### B MP #### [facility] [address] [place] [address] Sodium [Moles/Vol] 143 mmol/L Normal 136 - 145 [facility] Comment on above: Performed By: #### B MP #### [facility] [address] [place] [address] Urea nitrogen [Mass/Vol] 10 mg/dL Normal 6 - 23 [facility] Comment on above: Performed By: #### B MP #### [facility] [address] [place] [address] CBCon 03-21-2023 HCT Canceled Normal [facility] Comment on above: Order Comment: TEST CBC WAS CANCELLED, 03/21/2023 15:14 DUPLICATE ORDER. Performed By: #### C BC #### [facility] [address] [place] [address] HGB Canceled Normal [facility] Comment on above: Order Comment: TEST CBC WAS CANCELLED, 03/21/2023 15:14 DUPLICATE ORDER. Performed By: #### C BC #### [facility] [address] [place] [address] MCHC Canceled Normal [facility] Comment on above: Order Comment: TEST CBC WAS CANCELLED, 03/21/2023 15:14 DUPLICATE ORDER. Performed By: #### C BC #### [facility] [address] [place] [address] MCV Canceled Normal [facility] Comment on above: Order Comment: TEST CBC WAS CANCELLED, 03/21/2023 15:14 DUPLICATE ORDER. Performed By: #### C BC #### [facility] [address] [place] [address] NUCLEATED RBC Canceled Normal [facility] Comment on above: Order Comment: TEST CBC WAS CANCELLED, 03/21/2023 15:14 DUPLICATE ORDER. Performed By: #### C BC #### [facility] [address] [place] [address] PLT Canceled Normal [facility] Comment on above: Order Comment: TEST CBC WAS CANCELLED, 03/21/2023 15:14 DUPLICATE ORDER. Performed By: #### C BC #### [facility] [address] [place] [address] RBC Canceled Normal [facility] Comment on above: Order Comment: TEST CBC WAS CANCELLED, 03/21/2023 15:14 DUPLICATE ORDER. Performed By: #### C BC #### [facility] [address] [place] [address] RDW-CV Canceled Normal [facility] Comment on above: Order Comment: TEST CBC WAS CANCELLED, 03/21/2023 15:14 DUPLICATE ORDER. Performed By: #### C BC #### [facility] [address] [place] [address] WBC Canceled Normal [facility] Comment on above: Order Comment: TEST CBC WAS CANCELLED, 03/21/2023 15:14 DUPLICATE ORDER. Performed By: #### C BC #### [facility] [address] [place] [address] Erythrocyte distribution width (RBC) [Ratio] 13.3 % Normal 11.5 - 14.5 [facility] Comment on above: Performed By: #### C BC ####[id number] [place] [address] Hematocrit (Bld) [Volume fraction] 39.8 % Normal 36.0 - 46.0 [facility] Comment on above: Performed By: #### C BC ####[id number] [place] [address] Hemoglobin (Bld) [Mass/Vol] 12.6 g/dL Normal 12.0 - 16.0 [facility] [facility] Comment on above: Performed By: #### C BC ####[id number] [place] [address] MCHC (RBC) [Mass/Vol] 31.7 g/dL Low 32.0 - 36.0 [facility] Comment on above: Performed By: #### C BC ####[id number] [place] [address] MCV (RBC) [Entitic vol] 104 fL High 80 - 100 [facility] Comment on above: Performed By: #### C BC ####[id number] [place] [address] NUCLEATED RBC 0.0 /100 WBC Normal 0.0-0.0 [facility] Comment on above: Performed By: #### C BC ####[id number] [place] [address] Platelets (Bld) [#/Vol] 224 10*3/uL Normal 150 - 450 [facility] Comment on above: Performed By: #### C BC ####[id number] [place] [address] RBC 3.82 x10E12/L Low 4.00 - 5.20 [facility] Comment on above: Performed By: #### C BC ####[id number] [place] [address] WBC (Bld) [#/Vol] 12.0 10*3/uL High 4.4 - 11.3 [facility] Comment on above: Performed By: #### C BC ####[id number] [place] [address] Daily Progress Note-Della singh 03-21-2023 Daily Progress Note-Orthopaedics Service: Orthopaedics Subjective Data: ALISHA AG is a 67 year old Female who is Hospital Day # 2 and POD #1 for 1. REVISION L1-2 LAMINECTOMY AND FUSION;2. Repair of incidental durotomy. NAEON. AFVSS. Pain controlled on current regimen. +nausea. Endorses CONTI but has hx of migraines. Denies any new onset numbness, tingling or weakness. Denies chest pain, dyspnea, or calf tenderness. Denies any fever or chills. Voiding. Objective Data: Objective Information: T PRBPMAPSpO2 [id number]/7596% Date/Time03/21 2: 2: 2: 2: 2:56 Range(36.6C - 36.8C ) (52 - 70 ) (17 - 17 ) (129 - 162 )/ (72 - 85 ) (96% - 98% ) Pain reported at 03/20 18:00: 6 = Moderate Physical Exam Narrative: Physical Exam: Constitutional: NAD, resting comfortably in bed Skin: Warm and dry, no rashes Eyes: EOMI, clear sclera ENMT: MMM HEENT: Neck supple without apparent injury, EOMI, MMM Respiratory: NWOB on 2L CV: RRR per peripheral pulses, limbs wwp GI: soft, non-distended Lymph: No apparent LAD Neuro: JALLOH spontaneously, weight checker II - XII grossly intact Psych: Appropriate mood and behavior MSK: - incision c/d/i - drain holding suction L1: SILT L2: SILT Hip flexors 5/5 Left; 5/5 Right L3: SILT Knee extension 5/5 Left; 5/5 Right L4: SILT Tib Ant. (Dorsiflexion) 5/5 Left; 5/5 Right L5: SILT EHL5/5 Left; 5/5 Right S1: SILT Planter flexion 5/5 Left; 5/5 Right Assessment and Plan: Code Status: Code StatusFull Code Assessment: 67F PMH HTN s/p revision L1-2 laminectomy and fusion, dural repair on 03/[address] Dos Santos - NPO except for milton marie, RN okay to advance as tolerated with good bowel sounds. Bowel Regimen: Colace, senna, miralax. - Multimodal pain therapy: scheduled tylenol, prn oxycodone, decadron, robaxin, toradol - mIVF to continue until patient is tolerating good PO intake, HLIV w/ good PO; Will monitor BMP on POD 1 and prn thereafter - Weightbearing: WBAT, OOBAT. No HOB restrictions as dura was repaired with water seal. PT/OT consult, to see by POD1 at the latest. - Encourage IS - Perioperative ancef q8 for 24 hours - No indication for transfusion; monitor CBC POD1, repeat prn thereafter. - DVT PPx: SCD, no chemoPPx - Maintain PIV - No pro - Drain: HVx1, please record output at the end of each 8 hour nursing shift - Continue home meds: as indicated - Glycemic: No issues Dispo: pending PT/pain control This plan was discussed with the attending, Dr. Dos Santos.. This patient will be followed by ortho spine service: Brennon Johns PGY2 - [id number] Haja Heredia PGY4 - [id number] If after 6pm M-F, weekends, holidays please contact [phone] for oncall resident for urgent questions/concerns. Brennon Johns MD Orthopedic Surgery, PGY-2 Attestation: Note Completion: I am a: Resident/Fellow Attending AttestationI reviewed the resident/fellows documentation and discussed the patient with the resident/fellow. I agree with the resident/fellows medical decision making as documented in the note. Electronic Signatures: Ania Dos Santos) (Signed 04-Apr-2023 07:17) Authored: Note Completion Co-Signer: Service, Subjective Data, Objective Data, Assessment and Plan, Note Completion Tyron Johns (Resident)) (Signed 21-Mar-2023 06:23) Authored: Service, Subjective Data, Objective Data, Assessment and Plan, Note Completion Last Updated: 04-Apr-2023 07:17 by Ania Dos Santos) Normal [facility] Discharge Planning Atpq0ls 0 03-21-2023 Discharge Planning Note2 Discharge Planning: Needs Prior to Discharge (ex. Home Care Orders, IV/O2 prescriptions) Drain removal Discharge Barriersmedical Planned Dispositionhome health care new Discharge DestinationHome with Home Health Care PCP/Next Provider Follow Up Scheduledyes Patient/Chief Architect Stated Goalnone Anticipated Discharge [id number] Discharge Planning 03/21/23: Transitional Infrastructure Consultant note: I met with Alisha at the bedside regarding discharge planning and home going needs. Patient lives at home alone and is independent with ADL's she does have cane, walker, shower bench and rollator in the home. Patient is not medically cleared for discharge pending drain removal. Will continue to follow with a safe discharge plan. Sophia Mccray Transitional Infrastructure Consultant, [id number]. 03/22/23: Transitional Infrastructure Consultant note: Patient not medically cleared for discharge today pending drain removal and stair training with therapy ADOD is Saturday03/23/23. Will continue to follow with a safe discharge plan. Sophia Mccray Transitional Infrastructure Consultant, [id number]. 03/23/2023 1139 T[facility] note: Pt not medically clear for DC pending stair training and resolution of nausea. [facility] is the only accepting [facility] agency at this time. Tanya Pinto RN, [facility] doc halo 03/25/23: Transitional Infrastructure Consultant note: I received a message from the team that Alisha isn't doing as well as they'd hoped with therapy and that I should give patient a list of senior care facility choices but patient is still recommended for low intensity therapy at discharge. I did discuss that patient is still being recommended low intensity therapy at discharge. Will continue to follow with a safe discharge plan. Sophia Mccray Transitional Infrastructure Consultant, [id number]. 03/26/23: Transitional Infrastructure Consultant note: Patient is medically cleared for discharge home with [facility] services today via private transportation. [facility] services will process for SOC in 24 to 72 hours. Sophia Mccray Transitional Infrastructure Consultant, [id number]. 03/26/23: Discharge note: Pt discharge order is in. Pt was given her PRN medication. IV is removed. Pt is given discharge instruction, education about followup appointment, new medication, wound care and activity is given. all questions are answered. Pt and family member collected all belonging in the room. Pt is wheeled out of the floor with family member. Pt is discharged home with private car. 03.27.23 [facility] SOC 24-48 HOURS DWAYNE MACHADO LPN Assessment: Discharge Planning Assessment [id number] Discharge Planning Assessment Completed byoSphia Mccray RN TCC Primary Contact Name and [phone](1) Prior Level of FunctioningIndependent/a mbulatory Lives Withalone(2) Living Arrangementshouse(2) Stated Reason for Admissionsurgery(2) [place] (2) Mariana Osei DO Preferred Pharmacy Name/[facility] Recent Falls/ Injury/ Need Assist with Ambulationnone Equipment Currently Used at [facility], quad/straight; walker; shower chair; Rollator DME Supplier Name/Numbernone Home Care Agency/Support Servicesnone Diabetic/Supplies Needednone Hemodialysis Schedulenone Other Needsnone Resource/Environmental Concernsnone(2) Anticipated Transition [place](2) [facility] Readmission Within the Last 30 Daysno previous admission in last 30 days PCP Last Date SeenAugust 2nd patient drives [facility] [place] Anticipated Changes Related to Illnessnone Equipment Needed After Dischargenone Anticipated Discharge Facility/Level of Care [facility] - New Discharge Planning CommentsPatient is not medically cleared for discharge pending drain removal. Social Determinants of Health Identifiednone identified Special Considerationsnone Transportation Home Who/HowPatient's friend Oralia Medication Adherence/Afford/Obtainy es O2 LPMnone Home O2 Suppliernone Discharge Documentation: Code StatusCode Status order at time of discharge: Full Code Discharge Order Writtenyes [place] DNR Form Sent with Patient and/or Familyn/a Electronic Signatures: Sophia Mccray (JILLIAN) (Signed 26-Mar-2023 15:54) Authored: Discharge Planning, Assessment, Discharge Documentation Corinne Morrissey (RN) (Signed 26-Mar-2023 18:22) Authored: Discharge Planning, Discharge Documentation Heidy Menendez (RN) (Signed 21-Mar-2023 01:18) Authored: Discharge Planning, Assessment, Discharge Documentation Tanya Pinto (COOR) (Signed 23-Mar-2023 11:40) Authored: Discharge Planning Karin Momin (RN) (Signed 26-Mar-2023 13:38) Authored: Discharge Planning Dwayne Machado (ALEJANDRO) (Signed 27-Mar-2023 09:57) Authored: Discharge Planning Last Updated: 27-Mar-2023 09:57 by Dwayne Machado (ALEJANDRO) References: 1. Data Referenced From Patient Profile - Preop v3 20-Mar-2023 09:37 2. Data Referenced Fro (more content not included)... Normal [facility] Laboratory - Chemistry and C hemistry - challengeon 03-21-2023 Anion gap [Moles/Vol] 16 mmol/L 10 - 20 [facility] [facility] DO Work Phone: Calcium [Mass/Vol] 9.5 mg/dL 8.6 - 10.6 [facility] [facility] DO Work Phone: Chloride [Moles/Vol] 106 mmol/L 98 - 107 [facility] [facility] DO Work Phone: CO2 [Moles/Vol] 26 mmol/L 21 - 32 [facility] [facility] DO Work Phone: Creatinine [Mass/Vol] 0.64 mg/dL See Below [facility] [facility] DO Work Phone: Comment on above: Reference Range: 0.5 0 - 1.05 Glucose [Mass/Vol] 134 mg/dL above high threshold 74 - 99 [facility] [facility] DO Work Phone: Potassium [Moles/Vol] 4.5 mmol/L 3.5 - 5.3 [facility] [facility] DO Work Phone: Sodium [Moles/Vol] 143 mmol/L 136 - 145 [facility] [facility] DO Work Phone: Urea nitrogen [Mass/Vol] 10 mg/dL 6 - 23 [facility] [facility] DO Work Phone: Laboratory - Hematology and Cell countson 03-21-2023 Erythrocyte distribution width (RBC) [Ratio] 13.3 % See Below [facility] [facility] DO Work Phone: Comment on above: Reference Range: 11. 5 - 14.5 Hematocrit (Bld) [Volume fraction] 39.8 % See Below [facility] [facility] DO Work Phone: Comment on above: Reference Range: 36. 0 - 46.0 Hemoglobin (Bld) [Mass/Vol] 12.6 g/dL See Below [facility] [facility] DO Work Phone: Comment on above: Reference Range: 12. 0 - 16.0 MCHC (RBC) [Mass/Vol] 31.7 g/dL below low threshold See Below [facility] [facility] DO Work Phone: Comment on above: Reference Range: 32. 0 - 36.0 MCV (RBC) [Entitic vol] 104 fL above high threshold 80 - 100 [facility] [facility] DO Work Phone: Platelets (Bld) [#/Vol] 224 10*3/uL 150 - 450 [facility] [facility] DO Work Phone: RBC (Bld) [#/Vol] 3.82 {x10E12/L} below low threshold See Below [facility] [facility] DO Work Phone: Comment on above: Reference Range: 4.0 0 - 5.20 WBC (Bld) [#/Vol] 12.0 10*3/uL above high threshold 4.4 - 11.3 [facility] [facility] DO Work Phone: No Panel Informationon 03-21 >90 >90 [facility] [facility] DO Work Phone: Comment on above: CALCULATIONS OF SHAKILA MATED GFR ARE PERFORMED USING THE 2020 CKD-EPI STUDY REFIT EQUATION WITHOUT THE RACE VARIABLE FOR THE IDMS-TRACEABLE CREATININE METHODS.https://jasn.asnjournals.org/content/early/A SN.8540780858 0.0 {/100_WBC} 0.0-0.0 [facility] [facility] DO Work Phone: OT Evaluation v2-occupationa l therapyon 03-21-2023 OT Evaluation v2-occupational therapy Rehab: Info: Mode of Treatmentoccupational therapy Time IN08:25 Time OUT08:46 Total Treatment [id number] Patient in ... at end of sessionbed, 3 railings up; alarm on Communicated with ... at end of sessionbedside nurse Patient Profile Reviewedyes Onset of Illness/Injury or Date of [id number] Reason for Referrals/p revision L1-2 laminectomy and fusion, dural repair General Observations of PatientPt in supine on approach, willing to participate with min encouragement. Pertinent History of Current Functional Problemasthma, lumbar stenosis Precautions/Limitationsf all precautions; spinal precautions Ambulation Skills - Previous Level of Functionindependent uses a walker in the community Transfer Skills - Previous Level of Functionindependent ADL Skills - Previous Level of Functionindependent Work/Leisure Activity - Previous Level of Functionindependent; +drives, does not work, has 2 pet hamsters Living Arrangementsapartment Lives Withalone; Pt reports neighbors are available to assist Home Accessibilitystairs to enter home Number of Stairs to Enter Home11 Type of Equipment Currently In the Homestraight cane; rolling walker Line and TubesIV; hemovac O2 Deliverynasal cannula; 2L Vision/Cognition: Affect/Mental Status (Cognitive)WFL Orientation Status (Cognition)oriented x 3 Cognitive Function (Cognitive)safety deficit Safety Deficit (Cognitive)impaired insight into deficits; impulse control deficit Able to Follow Commands (Receptive)WFL ROM: Upper Extremity: Range of Motionleft upper extremity ROM WFL; right upper extremity ROM WFL Lower Extremity: Range of Motion(B) LE WFL MMT: Upper Extremity: Manual Muscle Testing (MMT)B UE grossly WFL, based on functional mobility Lower Extremity: Manual Muscle Testing (MMT)(B) LE WFL Mobility/Tone: Bed Mobility Assessment/Interventions supine to sit to supine Supine to Sit to Supine Deming (Bed Mobility)verbal cues; contact guard Assistive Device (Bed Mobility)bed rails Comment, Bed Mobilityverbal cues for logroll Transfer Assessment/Interventions sit to stand transfer; stand to sit transfer; chair to bed transfer Chair-Bed [place] (Transfers)contact guard; verbal cues Chair-Bed Assistive Device (Transfers)walker, front-wheeled Sit-Stand [place] (Transfers)contact guard; verbal cues Sit-Stand Assistive Device (Transfers)walker, front-wheeled Stand-Sit [place] (Transfers)contact guard; verbal cues Stand-Sit Assistive Device (Transfers)walker, front-wheeled Safety Issues Impacting Function (Mobility)safety precaution awareness Impairments Impacting Function (Mobility)balance; pain; strength ADL: BADL Assessment/Interventiont oileting; feeding; grooming; lower body dressing; upper body dressing; bathing Deming Level (Bathing)minimum assist (75% patient effort) Position (Bathing)sitting Comment (Bathing)anticipate [place] Level (Upper Body Dressing)upper body dressing skills; minimum assist (75% patient effort) [place] Level (Lower Body Dressing)lower body dressing skills; minimum assist (75% patient effort) Dem[place] Level (Grooming)set up Position (Grooming)sitting Deming Level (Feeding)set up Dem[place] Level (Toileting)contact guard Motor: Sitting, Static (Balance)SBA Sitting, Dynamic (Balance)CGA Standing, Static (Balance)CGA with walker Standing, Dynamic (Balance)CGA with walker, completed short household distance in room Sensory: Pain Locationc/o back pain (not rated) Sensory General Assessmentno sensation deficits identified Impression: Criteria for Skilled Therapeutic Interventions Met (OT Eval)yes; treatment indicated OT Diagnosisimpaired ADLs Patient/Family Goals Statement (OT Eval)pt wants to go home Rehab Potential (OT Eval)good, to achieve stated therapy goals Therapy Frequency (OT Eval)2 times/wk Planned Therapy Interventions (OT Eval)ADL retraining; balance training; bed mobility training; transfer training Outcomes Tools: Putting on and taking off regular lower body clothinga little Bathing (including washing, rinsing, drying)a little Toileting, which includes using toilet, bedpan or urinala little Putting on and taking off regular upper body clothinga little Taking care of personal grooming such as brushing teethnone Eating Mealsnone AM-PAC (OT) Total Score20 Short Term Goals: Bed Mobility: Date [id number] Bed Mobility: [place] Level Goalindependent Bed Mobility: Time Frame for Goal2 wks Transfer: Established Transfer: Transfer Type Goalall transfers Transfer: [place] Level Goalindependent; modified independent Transfer: Assistive Device GoalLRD Transfer: Time Frame for Goal2 wks Functional Mobility: Established Functional Mobility: Goal DetailsPt will participate in functional mobility using WW and Mod I Functional Mobili (more content not included)... Normal [facility] PT Evaluation v2-physical th erapy [facility] Evaluation v2-physical therapy - co-tx with OT to [facility] Rehab: Info: Mode of Treatmentphysical therapy; co-tx with OT to maximize mobility and safety Time IN08:25 Time OUT08:46 Total Treatment [id number] Patient in ... at end of sessionbed, 3 railings up; alarm on Communicated with ... at end of sessionbedside nurse Patient Profile Reviewedyes Onset of Illness/Injury or Date of [id number] Reason for Referrals/p revision L1-2 laminectomy and fusion, dural repair General Observations of Patientpt supine in bed, willing to participate Pertinent History of Current Functional Problemasthma, lumbar stenosis Precautions/Limitationsf all precautions; spinal precautions Ambulation Skills - Previous Level of Functionindependent uses a walker in the community Transfer Skills - Previous Level of Functionindependent ADL Skills - Previous Level of Functionindependent Work/Leisure Activity - Previous Level of Functionindependent; +drives Living Arrangementsapartment Lives Withalone Home Accessibilitystairs to enter home Number of Stairs to Enter Home11 Type of Equipment Currently In the Homestraight cane; rolling walker Line and TubesIV; hemovac O2 Deliverynasal cannula; 2L Vision/Cognition: Affect/Mental Status (Cognitive)WFL Orientation Status (Cognition)oriented x 3 ROM: Lower Extremity: Range of Motion(B) LE WFL MMT: Lower Extremity: Manual Muscle Testing (MMT)(B) LE WFL Mobility/Tone: Bed Mobility Assessment/Interventions supine to sit to supine Supine to Sit to Supine Deming (Bed Mobility)verbal cues; contact guard Assistive Device (Bed Mobility)bed rails Comment, Bed Mobilityverbal cues for logroll Transfer Assessment/Interventions sit to stand transfer; stand to sit transfer; chair to bed transfer Chair-Bed [place] (Transfers)contact guard; verbal cues Chair-Bed Assistive Device (Transfers)walker, front-wheeled Sit-Stand [place] (Transfers)contact guard; verbal cues Sit-Stand Assistive Device (Transfers)walker, front-wheeled Stand-Sit [place] (Transfers)contact guard; verbal cues Stand-Sit Assistive Device (Transfers)walker, front-wheeled Gait/Stairs Locomotiongait/ambulatio n independence; distance ambulated; gait deviations; gait/ambulation assistive device Gait Locomotion (Gait)contact guard; verbal cues Assistive Device (Gait Training)walker, front-wheeled Distance in Feet (Gait Training)15 feet Gait Deviations Identified (Gait)decreased hernan; decreased step length Safety Issues Impacting Function (Mobility)safety precaution awareness Impairments Impacting Function (Mobility)balance; pain; strength Motor: Sitting, Static (Balance)SBA Sitting, Dynamic (Balance)CGA Standing, Static (Balance)CGA with walker Standing, Dynamic (Balance)CGA with walker Sensory: Pain Locationc/o back pain (not rated) Sensory General Assessmentno sensation deficits identified Impression: Criteria for Skilled Therapeutic Interventions Met (PT Eval)yes; treatment indicated PT Diagnosisimpaired mobility Impairments Found (PT Eval)gait, locomotion, and balance; muscle performance Rehab Potential (PT Eval)good, to achieve stated therapy goals Therapy Frequency (PT Eval)6 times/wk Predicted Duration of Therapy [id number] days Planned Therapy Interventions (PT Eval)balance training; bed mobility training; gait training; stair training; strengthening; transfer training Outcomes Tools: Turning from your back to your side while in a flat bed without using bedrails a little Moving from lying on your back to sitting on the side of a flat bed without using bedrailsa little Moving to and from bed to chair (including a wheelchair)a little Standing up from a chair using your arms (e.g. wheelchair or bedside chair)a little To walk in hospital rooma little Climbing 3-5 steps with railinga ana lilia AM-PAC (PT) Total Score18 Short Term Goals: Bed Mobility: Date [id number] Bed Mobility: [place] Level Goalindependent Bed Mobility: Time Frame for Goal2 wks Transfer: Established Transfer: Transfer Type Ncpuoea-wp-cajtu/chair-t o-bed; hah-lk-rwjnx/stand-to-si t Transfer: Dem[place] Level Goalmodified independent Transfer: Assistive Device Goalrolling walker Transfer: Time Frame for Goal2 wks Gait: Established Gait: Dem[place] Level Goalmodified independent Gait: Assistive Device Goalrolling walker Gait: Distance [id number] feet Gait: Time Frame for Goal2 wks Stair: Established Stair: Deming Level Goalmodified independent Stair: Training Goal Detailsascend/descend 11 stairs with LRD Stair: Time Frame for Goal2 wks Balance: Established Balance: Goal Detailsno LOB with transfers/ambulation Balance: Time Frame for Goal2 wks Education: Learnerpatient Barriers to Learningacuteness of illness barrier Methodverbal Outcome Evaluation1=partially meets; needs review Topicreh (more content not included)... Normal [facility] Patient Profile - Adult v2on 03-21-2023 Patient Profile - Adult v2 Profile: Initial Info: How to be AddressedJeanie(1) Spoken Language PreferredEnglish (1) Source of Informationpatient Stated Reason for Admissionsurgery Wants Family/Rep Notified of Admissionno Notify PCPdo not notify PCP Informed of Patient Visiting Rightsyes [place] Patient Belongingsremains with patient Patient Belongings Remaining with Patientclothing Medications Brought to Hospitalno General Health: Blood Avoidance/Restrictionsno ne(1) Previous Transfusion Reactionnot applicable(1) Weight in kg60.3 kilogram(s)(2) Weight in trd490.9 pound(s) Weight Methodactual (measured) Scale Typebed Height in cm157.4 centimeter(s)(2) Height in feet5 feet Height in inches1.97 inch(es) Height Methodstated BMI (kg/m2)24.339 square meter RSP Based Care: How would you like to participate in your carestay informed What is the number one concern for you during this hospitalizationpain control What is the most important thing we can do to support you during this hospitalizationpain control Is there anything we need to know to best care for adrienne/a Substance: Smoking Statusnever smoker Alcohol Usedenies Drug Usedenies Drug 2 Usedenies Health Mgmt: Symptoms/Conditions Managed at Homenone Barriers to Managing Healthnone Relationship/Environ: Resource/Environmental Concernsnone Primary Source of Support/Comfortchild(figueroa ) Lives Withalone Living Arrangementshouse Services Anticipated at Transitionnone Anticipated Transition [place] Significant IndicatorsComplete Information Review: Allergies, Home Meds and Significant Events have been Reviewed and Verified with Patient/Familyyes ALLERGY, INTOLERANCE, ADVERSE EVENT: Allergies: morphine: Drug, Itching, Active Dilaudid: Drug, Anaphylaxis, Itching, Active fexofenadine: Drug, Unknown, Active Wellbutrin XL: Drug, Unknown, Active triamcinolone: Drug, Unknown, Active Intolerances: azithromycin: Drug, GI Upset, Active Electronic Signatures: Heidy Menendez) (Signed 21-Mar-2023 01:07) Authored: Initial Info, General Health, RSP Based Care, Substance, Health Mgmt, Relationship/Environ, Additional Information Last Updated: 21-Mar-2023 01:07 by Heidy Menendez) References: 1. Data Referenced From Patient Profile - Preop v3 20-Mar-2023 09:37 2. Data Referenced From 1. Vital Signs 20-Mar-2023 09:37 Normal [facility] Daily Progress Note-Orthopae dicson 03-20-2023 Daily Progress Note-Orthopaedics Service: Orthopaedics Subjective Data: ALISHA AG is a 67 year old Female who is Hospital Day # 1 and POD #0 for 1. REVISION L1-2 LAMINECTOMY AND FUSION;2. Repair of incidental durotomy. Evaluated in postoperative period, doing well. Pain controlled on current regimen. Some postop nausea. Denies any new onset numbness, tingling or weakness. Denies chest pain, dyspnea, or calf tenderness. Denies any fever or chills.. Objective Data: Objective Information: Pain reported at 03/20 13:19: 6 = Moderate Physical Exam Narrative: Physical Exam: Constitutional: NAD, resting comfortably in bed Skin: Warm and dry, no rashes Eyes: EOMI, clear sclera ENMT: MMM HEENT: Neck supple without apparent injury, EOMI, MMM Respiratory: NWOB on RA CV: RRR per peripheral pulses, limbs wwp GI: soft, non-distended Lymph: No apparent LAD Neuro: JALLOH spontaneously, weight checker II - XII grossly intact Psych: Appropriate mood and behavior MSK: - incision c/d/i - drain holding suction L1: SILT L2: SILT Hip flexors 4/5 Left; 4/5 Right L3: SILT Knee extension 4/5 Left; 4/5 Right L4: SILT Tib Ant. (Dorsiflexion) 5/5 Left; 5/5 Right L5: SILT EHL5/5 Left; 5/5 Right S1: SILT Planter flexion 5/5 Left; 5/5 Right Assessment and Plan: Code Status: Code StatusFull Code Advance Care Planning: Advance Care Planning: Patient didn't wish to or was unable to provide advance care plan Assessment: 67F PMH HTN s/p revision L1-2 laminectomy and fusion, dural repair on 03/[address] Dos Santos - NPO except for milton marie, RN okay to advance as tolerated with good bowel sounds. Bowel Regimen: Colace, senna, miralax. - Multimodal pain therapy: scheduled tylenol, prn oxycodone, decadron, robaxin, toradol - mIVF to continue until patient is tolerating good PO intake, HLIV w/ good PO; Will monitor BMP on POD 1 and prn thereafter - Weightbearing: WBAT, OOBAT. No HOB restrictions as dura was repaired with water seal. PT/OT consult, to see by POD1 at the latest. - Encourage IS - Perioperative ancef q8 for 24 hours - No indication for transfusion; monitor CBC POD1, repeat prn thereafter. - DVT PPx: SCD, no chemoPPx - Maintain PIV - No pro - Drain: HVx1, please record output at the end of each 8 hour nursing shift - Continue home meds: as indicated - Glycemic: No issues Dispo: pending PT/pain control This plan was discussed with the attending, Dr. Dos Santos.. This patient will be followed by ortho spine service: Brennon Johns PGY2 - [id number] Haja Heredia PGY4 - [id number] If after 6pm M-F, weekends, holidays please contact [phone] for oncall resident for urgent questions/concerns. Brennon Johns MD Orthopedic Surgery, PGY-2 Attestation: Note Completion: I am a: Resident/Fellow Attending AttestationI reviewed the resident/fellows documentation and discussed the patient with the resident/fellow. I agree with the resident/fellows medical decision making as documented in the note. Electronic Signatures: Ania Dos Santos) (Signed 04-Apr-2023 07:11) Authored: Note Completion Co-Signer: Service, Subjective Data, Objective Data, Assessment and Plan, Note Completion Tyron Johns (Resident)) (Signed 20-Mar-2023 14:02) Authored: Service, Subjective Data, Objective Data, Assessment and Plan, Note Completion Last Updated: 04-Apr-2023 07:11 by Ania Dos Santos) Normal [facility] Discharge [id number] Discharge Profile2 Discharge Orders: Anticipated Discharge Date: Anticipated Discharge [id number] Problem List: Additional Dx: Acute postoperative pain: Catalog Name: Other acute postprocedural pain Lumbar stenosis: Catalog Name: Spinal stenosis, lumbar region without neurogenic claudication Back pain: Onset Date: 03-Feb-2021, Catalog Name: Dorsalgia, unspecified Significant Events: Surgical Procedure: Clinical Events This Visit, 20-Mar-2023, 1. REVISION L1-2 LAMINECTOMY AND FUSION;2. Repair of incidental durotomy Hospital Providers: Provider RoleProvider Name Ania Sainz Lisa A Code Status: Code Status at Discharge: Full Code DNR Order Additional Instructions (peds only): Activity: activity with assistance PROGRESSIVE WALKING AT LEAST 2X/DAY. May shower. WHEN NO DRAINAGE FROM INCISIONAL AREA. May not return to school/work Instructions: May not drive until follow-up visit or while taking narcotic medication. No pushing, pulling, or lifting objects greater than 10 pounds. Weight-bearing Instructions: full weight bearing. Other activity instructions: NO EXCESSIVE BENDING/TWISTING, NO HEAVY HOUSE/YARD WORK. Diet: Dietresume normal diet Wound Care 1: Wound SiteBACK (Lumbar Spine) Wound Typesurgical incision Change Dressingdaily UNTIL NO LONGER DRAINING, THEN YOU CAN LEAVE THE DRESSING OFF Cleanse Withsoap and water, ONCE THE INCISION IS NO LONGER DRAINING AND YOU ARE ABLE TO SHOWER. Cover Withabdominal dressing Tape Withpaper tape Instructionsno lotions, creams, or tub soaks Other InstructionsIf there is a Exofin dressing (Strip) over your incision, do not remove it with your dressing changes. The dressing will slowly lift away from the skin over time. Additional Orders: Additional Instructions MAY USE HEAT OR ICE TO YOUR BACK NEEDED FOR COMFORT NO NSAIDS (ADVIL, IBUPROFEN, ALEVE... ETC.) FOR 8 WEEKS, THEY HAVE A BAD EFFECT ON HEALING OF FUSION. Call Provider If (Homegoing Patients): Breathing faster than normal. Temperature is greater than 102 degrees. Chills. Acting very sleepy and difficult to awaken. Vomiting (throwing up) and not able to eat or drink for 12 hours. 3 or more loose, watery bowel movements in 24 hours (diarrhea). Any new concerning symptoms. ANY CONCERNS OVER APPEARANCE OF INCISION PLEASE CALL IN ADVANCE WHEN RUNNING LOW ON PAIN MEDS. A PRESCRIPTION EITHER WILL NEED TO BE ELECTRONICALLY SENT OR PICKED UP IN ONE OF THE OFFICES. Hospital Course (Home Care/Gold Form): Hospital Course: Hospital Course: include significant abnormal lab values 67 year-old female who presented with lumbar [...] this procedure. Patient received 24 hours of freida-operative antibiotics. Patient recovered in the PACU before [...] Santos in 4 weeks for post-operative visit.. Home Care Orders: Face to Face Certification: Home Care Services Needed: yes Home Care Agency: Home Team Provider to Follow After Discharge: Primary Surgeon Skilled Disciplines Ordered: PT, OT Face to Face Encounter Completed: yes Date of Encounter: 22-Mar-2023 Medical Necessity for Homecare (based on clinical findings): PT/OT services needed 1-2 days a week to restore ability to walk safely without support and establish home exercise program. Homebound Status: homebound Homebound Due to:: Patient is temporarily homebound after a revision, fusion of the lumbar spine and is dependent on assistance/ assistive devices due to muscle weakness and painful ambulation. Face to Face Completed and Home Care Orders Reviewed: I certify that this patient is under my care. I have reviewed the information included in the face to face and certify that the home care services ordered are medically necessary for this patient. Home Care Services: Home Care Skilled ServiceRehab (PT/OT/SP eval and treat) Provider FINAL REVIEW of Orders: Final Review: Final Review of Medication Reconciliation and Orders Completedby Physician Reviewing ProviderAnia Dos Santos MD at 22-Mar-2023 11:48:17 Appointments: Follow-Up Appointment 01: Physician/Dept/ServiceDr Zheng Dos Santos/ Orthopaedic Surgery/ Spine Re (more content not included)... Normal [facility] No Panel Informationon 03-20 Please click on the link to view the study images Normal [facility] [facility] DO Work Phone: Order Reconciliationon 03-20 Order Reconciliation Page 1 Discharge Reconciliation Document Reconciliation Type: Discharge requested on behalf of Haja Heredia (Resident) done by Haja Heredia ( (Resident)) Discharge - Reconciliation: 20-Mar-2023 14:06 by: Tyron Johns (Resident)) Discharge - Reset to Incomplete: 23-Mar-2023 10:21 by: Haja Heredia ( (Resident)) Discharge - Reconciliation: 23-Mar-2023 10:22 by: Haja Heredia (Resident)) Home Medications EnteredHOME MEDICATIONS AT DISCHARGE DateReconciliation Comment/ Additional Information acetaminophen 325 mg oral tablet 2 tab(s) orally every 6 hours, As Needed pain 27-Jan-2021 00:00 Discontinued; Discontinue from ORM acetaminophen 325 mg oral tablet is not required amLODIPine 10 mg oral tablet 1 tab(s) oral once a day 15-Mar-2023 09:16 amLODIPine 10 mg oral tablet 1 tab(s) oral once a day 15-Mar-2023 09:16 amLODIPine 10 mg oral tablet is continued as amLODIPine 10 mg oral tablet cetirizine 10 mg oral tablet 1 tab(s) oral once a day 15-Mar-2023 09:16 cetirizine 10 mg oral tablet 1 tab(s) oral once a day 15-Mar-2023 09:16 cetirizine 10 mg oral tablet is continued as cetirizine 10 mg oral tablet Colace 100 mg oral capsule 1 cap(s) oral every 6 hours 27-Jan-2021 00:00 Colace 100 mg oral capsule 1 cap(s) oral every 6 hours 27-Jan-2021 00:00 Colace 100 mg oral capsule is continued as Colace 100 mg oral capsule Colace 100 mg oral capsule 1 cap(s) orally 2 times a day 21-Mar-2023 08:25 Discontinued; Discontinue from ORM Colace 100 mg oral capsule is not required Flovent HFA 110 mcg/inh inhalation aerosol 2 puff(s) inhaled once a day 20-Mar-2023 10:59 Flovent HFA 110 mcg/inh inhalation aerosol 2 puff(s) inhaled once a day 20-Mar-2023 10:59 Flovent HFA 110 mcg/inh inhalation aerosol is continued as Flovent HFA 110 mcg/inh inhalation aerosol hydrOXYzine hydrochloride 50 mg oral tablet 1-2 tab(s) orally once a day, As Needed sleep 15-Mar-2023 09:16 hydrOXYzine hydrochloride 50 mg oral tablet 1-2 tab(s) orally once a day, As Needed sleep 15-Mar-2023 09:16 hydrOXYzine hydrochloride 50 mg oral tablet is continued as hydrOXYzine hydrochloride 50 mg oral tablet Imitrex 100 mg oral tablet 1 tab(s) orally once a day, As Needed migraines 20-Mar-2023 11:03 Imitrex 100 mg oral tablet 1 tab(s) orally once a day, As Needed migraines 20-Mar-2023 11:03 Imitrex 100 mg oral tablet is continued as Imitrex 100 mg oral tablet lansoprazole 30 mg oral delayed release capsule 1 cap(s) oral once a day 15-Mar-2023 09:16 lansoprazole 30 mg oral delayed release capsule 1 cap(s) oral once a day 15-Mar-2023 09:16 lansoprazole 30 mg oral delayed release capsule is continued as lansoprazole 30 mg oral delayed release capsule MiraLax oral powder for reconstitution 17 gram(s) orally 2 times a day 21-Mar-2023 08:25 Discontinued; Discontinue from ORM MiraLax oral powder for reconstitution is not required oxyCODONE 5 mg oral tablet 1-2 tab(s) orally every 4-6 hours as needed for pain for 7 days 21-Mar-2023 08:25 Discontinued; Discontinue from ORM oxyCODONE 5 mg oral tablet is not required pramipexole 0.125 mg oral tablet 1 tab(s) oral once a day 15-Mar-2023 09:16 pramipexole 0.125 mg oral tablet 1 tab(s) oral once a day 15-Mar-2023 09:16 pramipexole 0.125 mg oral tablet is continued as pramipexole 0.125 mg oral tablet Singulair 10 mg oral tablet 1 tab(s) oral once a day 15-Mar-2023 09:16 Singulair 10 mg oral tablet 1 tab(s) oral once a day 15-Mar-2023 09:16 Singulair 10 mg oral tablet is continued as Singulair 10 mg oral tablet Tylenol 325 mg oral tablet 2 tab(s) orally every 6 hours 21-Mar-2023 08:26 Discontinued; Discontinue from ORM Tylenol 325 mg oral tablet is not required venlafaxine 75 mg oral tablet 1 tab(s) oral 2 times a day 15-Mar-2023 09:17 venlafaxine 75 mg oral tablet 1 tab(s) oral 2 times a day 15-Mar-2023 09:17 venlafaxine 75 mg oral tablet is continued as venlafaxine 75 mg oral tablet Current OrdersDateHOME MEDICATIONS AT DISCHARGE DateReconciliation Comment/ Additional Information Acetaminophen Tablet (TYLENOL)DOSE = 975 mg Oral Every 8 Hours 20-Mar-2023 13:52 Acetaminophen is not required amLODIPine (NORVASC) TabletDOSE = 10 mg Oral Daily 20-Mar-2023 13:34 amLODIPine (NORVASC) is not required ceFAZolin 1 gram Vial_IPRO SolutionGive 2 gram(s), IntraVenous, ONCE 20-Mar-2023 13:25 ceFAZolin 1 gram Vial_IPRO is not required Dexamethasone 10 mg/mL 1 mL Vial PF_IPRO SolutionGive 10 mg, IntraVenous, ONCE 20-Mar-2023 13:25 Dexamethasone 10 mg/mL 1 mL Vial PF_IPRO is not required diphenhydrAMINE Capsule (BENADRYL)DOSE = 25 mg Oral Every 6 Hours, PRN Itching 20-Mar-2023 13:52 diphenhydrAMINE is not required diphenhydrAMINE 2% Topical Cream (BENADRYL)DOSE = 1 application(s) Topical 4 Times a Day, PRN Dry SkinApply to Back 22-Mar-2023 10:43 diphenhydrAMINE 2% Topical is not required Docusate Capsule (COLACE)DOSE = 100 mg Oral 2 Times a Day 20-Mar-2023 13:5 (more content not included)... Normal [facility] Order Reconciliation Page 1 Admission Reconciliation Document Reconciliation Type: Admission from OR requested on behalf of Tyron Johns (Resident) done by Tyron Johns ( (Resident)) Admission from OR - Reconciliation: 20-Mar-2023 13:34 by: Tyron Johns ( (Resident)) Home MedicationsEnteredLast Dose TakenReconciled with current Order Reconciliation Comment/ Additional Information acetaminophen 325 mg oral tablet 2 tab(s) orally every 6 hours, As Needed pain [id number] AM Reviewed and Held amLODIPine 10 mg oral tablet 1 tab(s) oral once a [id number] 3 AM amLODIPine (NORVASC) TabletDOSE = 10 mg Oral DailyamLODIPine 10 mg oral tablet continued as the inpatient order amLODIPine (NORVASC) cetirizine 10 mg oral tablet 1 tab(s) oral once a [id number] 3 AM Reviewed and Held Colace 100 mg oral capsule 1 cap(s) oral every 6 [id number] 023 AM Reviewed and Held Flovent HFA 110 mcg/inh inhalation aerosol 2 puff(s) inhaled once a day [id number] AM Reviewed and Held hydrOXYzine hydrochloride 50 mg oral tablet 1-2 tab(s) orally once a day, As Needed -[id number] 023 PM hydrOXYzine Hydrochloride (ATARAX) TabletDOSE = 50 mg Oral Every 6 Hours, PRN anxietyhydrOXYzine hydrochloride 50 mg oral tablet continued as the inpatient order hydrOXYzine Hydrochloride (ATARAX) Imitrex 100 mg oral tablet 1 tab(s) orally once a day, As Needed migraines [id number] SUMAtriptan Tablet (IMITREX)DOSE = 100 mg Oral Once, PRN HeadacheImitrex 100 mg oral tablet continued as the inpatient order SUMAtriptan lansoprazole 30 mg oral delayed release capsule 1 cap(s) oral once a day [id number] AM Pantoprazole Enteric Coated Tablet (PROTONIX)DOSE = 40 mg Oral Dailylansoprazole 30 mg oral delayed release capsule continued as the inpatient order Pantoprazole pramipexole 0.125 mg oral tablet 1 tab(s) oral once a [id number]-Mar-2023 PM Pramipexole Tablet (MIRAPEX)DOSE = 0.125 mg Oral Daily pramipexole 0.125 mg oral tablet continued as the inpatient order Pramipexole Singulair 10 mg oral tablet 1 tab(s) oral once a [id number] 3 PM Montelukast Tablet (SINGULAIR)DOSE = 10 mg Oral DailySingulair 10 mg oral tablet continued as the inpatient order Montelukast venlafaxine 75 mg oral tablet 1 tab(s) oral 2 times a [id number]-Mar-2023 AM Venlafaxine Tablet (EFFEXOR)DOSE = 75 mg Oral 2 Times a Day venlafaxine 75 mg oral tablet continued as the inpatient order Venlafaxine Additional Current Orders ceFAZolin 1 gram Vial_IPRO SolutionGive 2 gram(s), IntraVenous, ONCE Dexamethasone 10 mg/mL 1 mL Vial PF_IPRO SolutionGive 10 mg, IntraVenous, ONCE FENTANYL 50MCG/1ML 2ML INJ_IPRO SolutionGive 200 microgram(s), IntraVenous, ONCE HYDROmorphone Injectable (DILAUDID)DOSE = 0.2 mg IntraVenous Push Every 5 Minutes, PRN Pain - Mod (4-6) (PACU) if unable to take oralClinician Notes: Freida-operative order ONLYMax total of 4 mg regardless of dose. HYDROmorphone Injectable (DILAUDID)DOSE = 0.4 mg IntraVenous Push Every 5 Minutes, PRN Pain - Severe (7-10) (PACU)Clinician Notes: Freida-operative order ONLYMax total of 4 mg regardless of dose. Ibuprofen Tablet (ADVIL, MOTRIN)DOSE = 400 mg Oral Every 6 Hours, PRN Pain - Mild (1-3) (PACU) when able to take OralClinician Notes: Freida-operative order ONLY Labetalol 100 mg/20 mL Vial_IPRO SolutionGive 15 mg, IntraVenous, ONCE Lactated Ringers Infusion IV Bag Volume = 1,000 mL Run at: 100 mL/hr IntraVenous Clinician Notes: Freida-operative order ONLY LIDOCAINE 2% PF 5ML VIAL_IPRO SolutionGive 100 mg, IntraVenous, ONCE Naloxone Injectable (NARCAN)DOSE = 0.2 mg IntraVenous Push Once, PRN If patient RR below 10, obtunded or unarousableClinician Notes: DO NOT ADMINISTER UNTIL PHYSiCIAN HAS BEEN NOTIFIED AND ASSESSED PATIENT Ondansetron 4 mg/2 mL Inj_IPRO SolutionGive 4 mg, IntraVenous, ONCE Phenylephrine 400 micrograms/10 mL Syringe_IPRO SolutionGive 160 microgram(s), IntraVenous, ONCE Promethazine IV Piggy Back in Sodium Chloride 0.9% 50 mL (PHENERGAN)DOSE = 6.25 mg Once, PRN PONV, first lineRecommended Infusion Time: 15 minute(s)Clinician Notes: Freida-operative order ONLY PROPOFOL 10MG/1ML 20ML VIAL_IPRO SolutionGive 200 mg, IntraVenous, ONCE Rocuronium 10 mg/mL Inj 10 mL Vial_IPRO SolutionGive 70 mg, IntraVenous, ONCE Tranexamic Acid 100 mg/mL Inj_IPRO SolutionGive 2,000 mg, IntraVenous, ONCE Normal [facility] Patient Profile - Preop v3on 03-20-2023 Patient Profile - Preop v3 Patient Profile - Preop: Initial Info: Patient DemographicsName: ALISHA AG Date: 1955 Address: [address] [place] [address] Primary Phone [phone] How to be AddressedJeanie Spoken Language PreferredEnglish Stated Reason for Admissionrevision laminectomy Primary Contact Name and [id number] Medications Brought to Hospitalno General Health: Weight in kg60.3 kilogram(s) Weight in imv408.9 pound(s) Weight Methodactual (measured) Scale Typestanding Height in feet5 feet Height in inches1.97 inch(es) Height in cm157.4 centimeter(s) Height Methodstated BMI (kg/m2)24.339 square meter Patient or Family Member Reaction to Anesthesiano previous reaction Blood Avoidance/Restrictionsno ne Previous Transfusion Reactionnot applicable Health Mgmt: Symptoms/Conditions Managed at Homemusculoskeletal Barriers to Managing Healthnone Relationship/Environ: Lives Withalone Living Arrangementsapartment Resource/Environmental Concernsnone Anticipated Transition [place] [facility] Anticipated at Transitionnone Tobacco Use: Tobacco Useno Pre-op Checklist: Arrival [id number] Arrival Time08:12 Procedure Typerevision L1-2 laminectomy and fusion NPOyes Last Food [id number] 19:30 Last Clear Fluid [id number] 06:00 NPO Commentsips of water with meds at 0600 ID Band On Patientpatient ID (name), allergy Consent Signedpending H&P Completepending Anesthesia Assessment Completedpending EKG Performednot ordered Chest X-Ray Performednot ordered COVID 19 Results in Last 7 daysn/a HCG Urine TestN/A Chlorhexadine Bath Givencompleted at home Nasal Antiseptic Appliedmouthwash Soap and Water Bath the Night Before Surgeryyes Hair Washed with Shampooyes Bowel Prepno Surgical Site Infection Preventionyes Pain Scales and Managementyes Additional Information: Information Review: Allergies, Home Meds and Significant Events have been Reviewed and Verified with Patient/Familyyes Allergy, Intolerance, Adverse Event: Allergies: morphine: Drug, Itching, Active Dilaudid: Drug, Anaphylaxis, Itching, Active fexofenadine: Drug, Unknown, Active Wellbutrin XL: Drug, Unknown, Active triamcinolone: Drug, Unknown, Active Intolerances: azithromycin: Drug, GI Upset, Active Problem List: Additional Dx: Back pain: Onset Date: 03-Feb-2021, Catalog Name: Dorsalgia, unspecified Chronic pain: Onset Date: 03-Feb-2021, Catalog Name: Other chronic pain Close exposure to COVID-19 virus: Onset Date: 03-Feb-2021, Catalog Name: Contact with and (suspected) exposure to COVID-19 Acute depression: Onset Date: 03-Feb-2021, Catalog Name: Major depressive disorder, single episode, unspecified Asthma: Onset Date: 03-Feb-2021, Catalog Name: Unspecified asthma, uncomplicated Gastroesophageal reflux disease: Onset Date: 03-Feb-2021, Catalog Name: Gastro-esophageal reflux disease without esophagitis Electronic Signatures: Jessica Monroy) (Signed 20-Mar-2023 09:42) Authored: Initial Info, General Health, Health Mgmt, Relationship/Environ, Tobacco Use, Pre-op Checklist, Additional Information Last Updated: 20-Mar-2023 09:42 by Jessica Monroy) Normal [facility] CBC AND DIFFERENTIALon 03-15 % AUTOMATED IMMATURE GRAN 0.2 % Normal 0.0 - 0.9 [facility] Comment on above: Result Comment: Giovanna ture Granulocyte Count (IG) includes promyelocytes, myelocytes and metamyelocytes but does not include bands. Percent differential counts (%) should be interpreted in the context of the absolute cell counts (cells/L). Performed By: #### C BCDF #### [facility] [address] [place] [address] Basophils (Bld) [#/Vol] 0.04 10*3/uL Normal 0.00 - 0.10 [facility] Comment on above: Performed By: #### C BCDF #### [facility] [address] [place] [address] Basophils/100 WBC (Bld) 0.8 % Normal 0.0 - 2.0 [facility] Comment on above: Performed By: #### C BCDF #### [facility] [address] [place] [address] Eosinophils (Bld) [#/Vol] 0.09 10*3/uL Normal 0.00 - 0.70 [facility] Comment on above: Performed By: #### C BCDF #### [facility] [address] [place] [address] Eosinophils/100 WBC (Bld) 1.7 % Normal 0.0 - 6.0 [facility] Comment on above: Performed By: #### C BCDF #### [facility] [address] [place] [address] Erythrocyte distribution width (RBC) [Ratio] 13.0 % Normal 11.5 - 14.5 [facility] Comment on above: Performed By: #### C BCDF #### [facility] [address] [place] [address] Hematocrit (Bld) [Volume fraction] 43.4 % Normal 36.0 - 46.0 [facility] Comment on above: Performed By: #### C BCDF #### [facility] [address] [place] [address] Hemoglobin (Bld) [Mass/Vol] 14.2 g/dL Normal 12.0 - 16.0 [facility] Comment on above: Performed By: #### C BCDF #### [facility] [address] [place] [address] Lymphocytes (Bld) [#/Vol] 1.44 10*3/uL Normal 1.20 - 4.80 [facility] Comment on above: Performed By: #### C BCDF #### [facility] [address] [place] [address] Lymphocytes/100 WBC (Bld) 27.7 % Normal 13.0 - 44.0 [facility] Comment on above: Performed By: #### C BCDF #### [facility] [address] [place] [address] MCHC (RBC) [Mass/Vol] 32.7 g/dL Normal 32.0 - 36.0 [facility] Comment on above: Performed By: #### C BCDF #### [facility] [address] [place] [address] MCV (RBC) [Entitic vol] 102 fL High 80 - 100 [facility] Comment on above: Performed By: #### C BCDF #### [facility] [address] [place] [address] Monocytes (Bld) [#/Vol] 0.57 10*3/uL Normal 0.10 - 1.00 [facility] Comment on above: Performed By: #### C BCDF #### [facility] [address] [place] [address] Monocytes/100 WBC (Bld) 11.0 % Normal 2.0 - 10.0 [facility] Comment on above: Performed By: #### C BCDF #### [facility] [address] [place] [address] Neutrophils (Bld) [#/Vol] 3.05 10*3/uL Normal 1.20 - 7.70 [facility] Comment on above: Performed By: #### C BCDF #### [facility] [address] [place] [address] Neutrophils/100 WBC (Bld) 58.6 % Normal 40.0 - 80.0 [facility] Comment on above: Performed By: #### C BCDF #### [facility] [address] [place] [address] NUCLEATED RBC 0.0 /100 WBC Normal 0.0-0.0 [facility] Comment on above: Performed By: #### C BCDF #### [facility] [address] [place] [address] Platelets (Bld) [#/Vol] 247 10*3/uL Normal 150 - 450 [facility] Comment on above: Performed By: #### C BCDF #### [facility] [address] [place] [address] RBC 4.25 x10E12/L Normal 4.00 - 5.20 [facility] Comment on above: Performed By: #### C BCDF #### [facility] [address] [place] [address] WBC (Bld) [#/Vol] 5.2 10*3/uL Normal 4.4 - 11.3 [facility] Comment on above: Performed By: #### C BCDF #### [facility] [address] [place] [address] COAGULATION SCREENon 08-18-2 023 aPTT Coag (Bld) [Time] 33 s Normal 27 - 38 [facility] Comment on above: Result Comment: Note new reference range as of 01/15/2023 at 10:00am. Performed By: #### C OAGS #### [facility] [address] [place] [address] PT Coag (PPP) [Time] 10.1 s Normal 9.8 - 12.8 [facility] Comment on above: Result Comment: Note new reference range as of 01/15/2023 at 10:00am. Performed By: #### C OAGS #### [facility] [address] [place] [address] PT, INR 0.9 Normal 0.9 - 1.1 [facility] Comment on above: Performed By: #### C OAGS #### [facility] [address] [place] [address] COMPREHENSIVE PANELon 2022 Albumin [Mass/Vol] 4.8 g/dL Normal 3.4 - 5.0 [facility] Comment on above: Performed By: #### C MP #### [facility] [address] [place] [address] ALP [Catalytic activity/Vol] 91 U/L Normal 33 - 136 [facility] Comment on above: Performed By: #### C MP #### [facility] [address] [place] [address] ALT [Catalytic activity/Vol] 13 U/L Normal 7 - 45 [facility] Comment on above: Result Comment: Jane ents treated with Sulfasalazine may generate falsely decreased results for ALT. Performed By: #### C MP #### [facility] [address] [place] [address] Anion gap [Moles/Vol] 14 mmol/L Normal 10 - 20 [facility] Comment on above: Performed By: #### C MP #### [facility] [address] [place] [address] AST [Catalytic activity/Vol] 17 U/L Normal 9 - 39 [facility] Comment on above: Performed By: #### C MP #### [facility] [address] [place] [address] Bilirubin [Mass/Vol] 0.4 mg/dL Normal 0.0 - 1.2 [facility] Comment on above: Performed By: #### C MP #### [facility] [address] [place] [address] Calcium [Mass/Vol] 9.9 mg/dL Normal 8.6 - 10.6 [facility] Comment on above: Performed By: #### C MP #### [facility] [address] [place] [address] Chloride [Moles/Vol] 108 mmol/L High 98 - 107 [facility] Comment on above: Performed By: #### C MP #### [facility] [address] [place] [address] Creatinine [Mass/Vol] 0.61 mg/dL Normal 0.50 - 1.05 [facility] Comment on above: Performed By: #### C MP #### [facility] [address] [place] [address] eGFR FEMALE >90 Normal >90 [facility] Comment on above: Result Comment: CALC ULATIONS OF ESTIMATED GFR ARE PERFORMED USING THE 2020 CKD-EPI STUDY REFIT EQUATION WITHOUT THE RACE VARIABLE FOR THE IDMS-TRACEABLE CREATININE METHODS. https://jasn.asnjournals.org/content/early/ASN.59507 33726 Performed By: #### C MP #### [facility] [address] [place] [address] Glucose [Mass/Vol] 83 mg/dL Normal 74 - 99 [facility] Comment on above: Performed By: #### C MP #### [facility] [address] [place] [address] HCO3 (Bld) [Moles/Vol] 27 mmol/L Normal 21 - 32 [facility] Comment on above: Performed By: #### C MP #### [facility] [address] [place] [address] Potassium [Moles/Vol] 4.6 mmol/L Normal 3.5 - 5.3 [facility] Comment on above: Performed By: #### C MP #### [facility] [address] [place] [address] Protein [Mass/Vol] 6.8 g/dL Normal 6.4 - 8.2 [facility] Comment on above: Performed By: #### C MP #### [facility] [address] [place] [address] Sodium [Moles/Vol] 144 mmol/L Normal 136 - 145 [facility] Comment on above: Performed By: #### C MP #### [facility] [address] [place] [address] Urea nitrogen [Mass/Vol] 16 mg/dL Normal 6 - 23 [facility] Comment on above: Performed By: #### C MP #### [facility] [address] [place] [address] Complete Blood Count + Diffe iris 03-15-2023 Basophils/100 WBC (Bld) 0.8 % 0.0 - 2.0 [facility] Work Phone: Erythrocyte distribution width (RBC) [Ratio] 13.0 % See Below [facility] Work Phone: Comment on above: Reference Range: 11. 5 - 14.5 Hematocrit (Bld) [Volume fraction] 43.4 % See Below [facility] Work Phone: Comment on above: Reference Range: 36. 0 - 46.0 Hemoglobin (Bld) [Mass/Vol] 14.2 g/dL See Below [facility] Work Phone: Comment on above: Reference Range: 12. 0 - 16.0 Lymphocytes/100 WBC (Bld) 27.7 % See Below [facility] Work Phone: Comment on above: Reference Range: 13. 0 - 44.0 MCHC (RBC) [Mass/Vol] 32.7 g/dL See Below [facility] Work Phone: Comment on above: Reference Range: 32. 0 - 36.0 MCV (RBC) [Entitic vol] 102 fL above high threshold 80 - 100 [facility] Work Phone: Monocytes/100 WBC (Bld) 11.0 % 2.0 - 10.0 [facility] Work Phone: Neutrophils/100 WBC (Bld) 58.6 % See Below [facility] Work Phone: Comment on above: Reference Range: 40. 0 - 80.0 Platelets (Bld) [#/Vol] 247 10*3/uL 150 - 450 [facility] Work Phone: RBC (Bld) [#/Vol] 4.25 {x10E12/L} See Below [facility] Work Phone: Comment on above: Reference Range: 4.0 0 - 5.20 WBC (Bld) [#/Vol] 5.2 10*3/uL 4.4 - 11.3 [facility] Work Phone: Complete Blood Count + Differential 0.04 {x10E9/L} See Below [facility] Work Phone: Comment on above: Reference Range: 0.0 0 - 0.10 Complete Blood Count + Differential 0.09 {x10E9/L} See Below [facility] Work Phone: Comment on above: Reference Range: 0.0 0 - 0.70 Complete Blood Count + Differential 0.57 {x10E9/L} See Below [facility] Work Phone: Comment on above: Reference Range: 0.1 0 - 1.00 Complete Blood Count + Differential 1.44 {x10E9/L} See Below [facility] Work Phone: Comment on above: Reference Range: 1.2 0 - 4.80 Complete Blood Count + Differential 3.05 {x10E9/L} See Below [facility] Work Phone: Comment on above: Reference Range: 1.2 0 - 7.70 Complete Blood Count + Differential 1.7 % 0.0 - 6.0 [facility] Work Phone: Complete Blood Count + Differential 0.2 % 0.0 - 0.9 [facility] Work Phone: Comment on above: Immature Granulocyte Count (IG) includes promyelocytes, myelocytes and metamyelocytes but does not include bands. Percent differential counts (%) should be interpreted in the context of the absolute cell counts (cells/L). Complete Blood Count + Differential 0.0 {/100_WBC} 0.0-0.0 [facility] Work Phone: Laboratory - Blood bankon ABO group Nom (Bld) O [facility] Work Phone: Blood group antibody screen Ql Negative [facility] Work Phone: Rh immune globulin screen (Bld) [Interp] Positive [facility] Work Phone: Laboratory - Chemistry and C hemistry - challengeon 03-15-2023 Albumin BCP dye [Mass/Vol] 4.8 g/dL 3.4 - 5.0 [facility] Work Phone: ALP [Catalytic activity/Vol] 91 U/L 33 - 136 [facility] Work Phone: ALT With P-5'-P [Catalytic activity/Vol] 13 U/L 7 - 45 [facility] Work Phone: Comment on above: Patients treated wit h Sulfasalazine may generate falsely decreased results for ALT. Anion gap [Moles/Vol] 14 mmol/L 10 - 20 [facility] Work Phone: AST With P-5'-P [Catalytic activity/Vol] 17 U/L 9 - 39 [facility] Work Phone: Bilirubin [Mass/Vol] 0.4 mg/dL 0.0 - 1.2 [facility] Work Phone: Calcium [Mass/Vol] 9.9 mg/dL 8.6 - 10.6 [facility] Work Phone: Chloride [Moles/Vol] 108 mmol/L above high threshold 98 - 107 [facility] Work Phone: CO2 [Moles/Vol] 27 mmol/L 21 - 32 [facility] Work Phone: Creatinine [Mass/Vol] 0.61 mg/dL See Below [facility] Work Phone: Comment on above: Reference Range: 0.5 0 - 1.05 Glucose [Mass/Vol] 83 mg/dL 74 - 99 [facility] Work Phone: Potassium [Moles/Vol] 4.6 mmol/L 3.5 - 5.3 [facility] Work Phone: Protein [Mass/Vol] 6.8 g/dL 6.4 - 8.2 [facility] Work Phone: Sodium [Moles/Vol] 144 mmol/L 136 - 145 [facility] Work Phone: Urea nitrogen [Mass/Vol] 16 mg/dL 6 - 23 [facility] Work Phone: Laboratory - Coagulationon 0 - aPTT Coag (PPP) [Time] 33 s 27 - 38 [facility] Work Phone: Comment on above: Note new reference kelsea johnston as of 01/15/2023 at 10:00am. INR Coag (PPP) [Relative time] 0.9 {INR} 0.9 - 1.1 [facility] Work Phone: PT Coag (PPP) [Time] 10.1 s 9.8 - 12.8 [facility] Work Phone: Comment on above: Note new reference kelsea johnston as of 01/15/2023 at 10:00am. MRSA Screenon 03-15-2023 Staphylococcus sp identified Org specific cx Nom (Unsp spec) [facility] [facility] DO Work Phone: No Panel Informationon 03-15 >90 >90 [facility] Work Phone: Comment on above: CALCULATIONS OF SHAKILA MATED GFR ARE PERFORMED USING THE 2020 CKD-EPI STUDY REFIT EQUATION WITHOUT THE RACE VARIABLE FOR THE IDMS-TRACEABLE CREATININE METHODS.https://jasn.asnjournals.org/content/early//A SN.1599354917 STAPH/MRSA SCREENon 03-15-20 STAPH/MRSA SCREEN PATIENT: CITLALI AG LOCATION: [facility]#: [id number] : 51 AGE: SEX: F ORDERED BY: ANIA DOS SANTOS SOURCE: ANTERIOR NARES COLLECTED: 03/15/23 10:14 ANTIBIOTICS AT ABDULKADIR.: RECEIVED : 03/15/23 16:59 SITE: Nasal R E S U L T S STAPH/MRSA SCREEN FINAL 03/17/23 08:08 NO Staphylococcus aureus ISOLATED. Normal [facility] Comment on above: Performed By: #### S TAPH ####[id number] [place] [address] TYPE + SCREENon 03-15-2023 ABO TYPE O Normal [facility] Comment on above: Performed By: #### T +S #### [facility] [address] [place] [address] RH TYPE Positive Normal [facility] Comment on above: Performed By: #### T +S #### [facility] [address] [place] [address] Established Visit (Orthopaed ic Surgery)on 02-25-2023 Established Visit (Orthopaedic Surgery) Diagnoses/Problems Assessed Lumbar radiculopathy (724.4) (M54.16) Spinal stenosis of lumbar region with neurogenic claudication (724.03) (M48.062) Chief Complaint FUV- Back pain History of Present Illness Patient returns for follow-up regarding her back and leg pain. She brought her MRI with her today. She recently completed a course of physical therapy at [facility]. She is quite miserable and can barely stand and walk due to the pain. I personally reviewed the x-rays and MRI of her lumbar spine. These show disc space collapse at L1-2 with a well-healed fusion from L2-5. MRI shows severe central and lateral recess stenosis at L1 to. 67-year-old female with junctional lumbar spinal stenosis and severe pain with claudication. We discussed continued conservative care with epidural injections versus surgical treatment. She would like to proceed with surgery. She understands the goal of surgery is primarily to improve her leg pain as well as standing and walking endurance. I discussed the risks of surgery including bleeding, infection, paralysis, muscle weakness, CSF leak, bowel or bladder dysfunction, incomplete resolution of pain or numbness, DVT/PE, heart attack, stroke, and other unforeseen medical and anesthesia complications. I also explained that the typical success rates for operation such as this fall in the 80-85% range, and that there is a small chance that there will be no improvement, or even less commonly, worsening of the preoperative symptoms. She verbalized understanding of the risks, benefits, and alternatives to surgical treatment. The plan will be for revision L1-2 laminectomy and fusion. Surgery was scheduled for March 21 at [facility]. This note was dictated using speech recognition software and was not corrected for spelling or grammatical errors. Active Problems Problems Lumbar pain (724.2) (M54.50) Lumbar radiculopathy (724.4) (M54.16) Signatures Electronically signed by : Ania Dos Santos MD; Feb 27 2023 8:59AM EST (Author) Normal [facility] Established Visit (Orthopaed ic Surgery)on 02-18-2023 Established Visit (Orthopaedic Surgery) Diagnoses/Problems Assessed Lumbar radiculopathy (724.4) (M54.16) Chief Complaint FUV- low back pain History of Present Illness Patient returns for follow-up. I performed a elbow 2-5 posterior spinal fusion with decompression for cauda equina syndrome in 2020. She did very well following that operation with improvement in her pain and bladder function. Over the last year she has had progressively worsening lateral thigh pain and burning, it radiates down the back of her hamstrings. It is worse with standing and walking, improved with rest. She has to use a walker for ambulation. She has been treated with physical and aquatic therapy. She recently had new x-rays and MRI but she did not bring them with her today. On exam she walks with a forward leaning gait. She does not have any focal neurologic deficits. Negative straight leg raise test. No pathologic reflexes. I recommended at this point that she follow-up with me next week and bring her MRI on a disc. She is going to get that and see me next week. This note was dictated using speech recognition software and was not corrected for spelling or grammatical errors. Active Problems Problems Lumbar pain (724.2) (M54.50) Lumbar radiculopathy (724.4) (M54.16) Signatures Electronically signed by : Ania Dos Santos MD; Feb 18 2023 9:17AM EST (Author) Normal [facility] Basophil percentageOrdered B y: Jania Felipe on 11-14-2022 Basophil percentage < 0.9 mg/dL 0.55-1.02 [facility] No Panel InformationOrdered By: Jania Felipe on 11-14-2022 Bedside Estimated GFR (eGFR) > 60.0000 mL/min >60 [facility] Culture, urineOrdered By: Felipe Hassan on 09-10-2022 Bacteria identified Cx Nom (U) Culture exhibits no growth. [facility] Basophil percentageOrdered B y: Juan Manuel Hassan on 09-08-2022 Basophil percentage >100 SEEN /hpf 0-5 [facility] Bilirubin Test strip Ql (U)O rdered By: Juan Manuel Hassan on 09-08-2022 Bilirubin Ql (U) 3 mg/dL Negative [facility] Comment on above: COLOR OF URINE MAY A FFECT DIPSTICK RESULTS. Ketones Test strip Ql (U)Ord ered By: Juan Manuel Hassan on 09-08-2022 Ketones Ql (U) Negative Negative [facility] Laboratory - Chemistry and C hemistry - challengeon 09-08-2022 Bilirubin Ql (U) Negative [facility] Glucose Ql (U) Negative [facility] Ketones Ql (U) Negative [facility] pH (U) 6.0 [pH] [facility] Specific gravity (U) [Rel density] 1.015 [facility] Urobilinogen (U) [Mass/Vol] Negative [facility] Laboratory - Hematology and Cell countson 09-08-2022 Hemoglobin Ql (U) Negative [facility] Laboratory - Specimen inform ationon 09-08-2022 Clarity (U) Cloudy [facility] Color (U) [place] [facility] Laboratory - Urinalysison Nitrite Ql (U) Negative [facility] Protein Ql (U) Negative [facility] Mucus LM Ql (Urine sed)Order ed By: Juan Manuel Hassan on 09-08-2022 Mucus Ql (Urine sed) 0 SEEN /hpf [facility] Nitrite Test strip Ql (U)Ord ered By: Juan Manuel Hassan on 09-08-2022 Nitrite Ql (U) Positive Negative [facility] No Panel Informationon 09-08 Urine Leukocytes Positive [facility] Urine Non-Hemolyzed Blood Negative [facility] Protein Test strip Ql (U)Ord ered By: Juan Manuel Hassan on 09-08-2022 Protein Ql (U) 30 mg/dl Negative [facility] Squamous epithelial cells de tection in urine sediment by light microscopyOrdered By: Juan Manuel Hassan on 09-08-2022 Epithelial cells.squamous LM Ql (Urine sed) 0-5 SEEN /hpf 5-10 [facility] Urine blood detectionOrdered By: Juan Manuel Hassan on 09-08-2022 RBC Ql (U) 10 /ul Negative [facility] RBC Ql (U) 0-5 SEEN /hpf 0-5 [facility] Urine clarityOrdered By: Simone Hassan on 09-08-2022 Clarity (U) Sl. Cloudy Clear [facility] Urine color determinationOrd ered By: Juan Manuel Hassan on 09-08-2022 Color (U) [place] Yellow [facility] Urine glucose detectionOrder ed By: Juan Manuel Hassan on 09-08-2022 Glucose Ql (U) Normal mg/dl Normal [facility] Urine leukocyte esterase det ection by dipstickOrdered By: Juan Manuel Hassan on 09-08-2022 Leukocyte esterase Test strip Ql (U) 500 /ul Negative [facility] Urine pHOrdered By: Juan Manuel tadeo on 09-08-2022 pH (U) 6.0 [pH] 5.0 - 8.0 [facility] Urine sediment bacteria coun t by microscopy (number/high power field)Ordered By: Juan Manuel Hassan on 09-08-2022 Bacteria LM.HPF (Urine sed) [#/Area] 1 /[HPF] None Seen [facility] Urine specific gravity measu rementOrdered By: Juan Manuel Hassan on 09-08-2022 Specific gravity (U) [Rel density] 1.015 1.002-1.03 0 [facility] Urobilinogen Auto test strip Ql (U)Ordered By: Juan Manuel Hassan on 09-08-2022 Urobilinogen Ql (U) 4 mg/dl Normal [facility] Absolute lymphocyte countOrd ered By: Dr. Meier on 08-02-2022 Lymphocytes Auto (Unsp spec) [#/Vol] 1.96 10*3/uL 0.83-4.51 [facility] Basophil percentageOrdered B y: Dr. Meier on 08-02-2022 Basophils/100 WBC (Bld) 0.4 % 0-1 [facility] Bilirubin [Mass/Vol] 0.40 mg/dL 0.20-1.00 [facility] Comment on above: For patients on eltr ombopag therapy, use of Dimension [place] TBIL is not recommended. Chloride [Moles/Vol] 114 mmol/L 98-107 [facility] Eosinophils/100 WBC (Bld) 3.8 % 0-5 [facility] Glucose [Mass/Vol] 118 mg/dL 74-106 [facility] Comment on above: Fasting Glucose resu lt from 100 to 125 mg/dL suggests IMPAIRED HOMEOSTASIS per A.D.A. criteria. Neutrophils (Bld) [#/Vol] 2.5 10*3/uL 2.0-7.7 [facility] Neutrophils/100 WBC (Bld) 47.9 % 47-70 [facility] Potassium [Moles/Vol] 3.3 mmol/L 3.5-5.1 [facility] Protein [Mass/Vol] 7.1 g/dL 6.4-8.2 [facility] Sodium [Moles/Vol] 144 mmol/L 136-145 [facility] WBC (Bld) [#/Vol] 5.2 10*3/uL 4.4-11.0 [facility] Blood erythrocytes count (nu mber/volume)Ordered By: Dr. Meier on 08-02-2022 RBC (Bld) [#/Vol] 4.39 10*6/uL 4.2-5.4 [facility] Blood hemoglobin measurement (mass/volume)Ordered By: Dr. Meier on 08-02-2022 Hemoglobin (Bld) [Mass/Vol] 14.5 g/dL 12.0-15.0 [facility] Blood lymphocytes/100 leukoc ytesOrdered By: Dr. Meier on 08-02-2022 Lymphocytes/100 WBC (Bld) 37.4 % 19-41 [facility] Blood monocytes/100 leukocyt esOrdered By: Dr. Meier on 08-02-2022 Monocytes/100 WBC (Bld) 10.3 % 0-10 [facility] Blood platelet mean volumeOr dered By: Dr. Meier on 08-02-2022 Platelet mean volume (Bld) [Entitic vol] 10.2 fL 6.2-12.0 [facility] Determination of erythrocyte mean corpuscular volume (MCV)Ordered By: Dr. Meier on 08-02-2022 MCV (RBC) [Entitic vol] 98.4 fL 81-99 [facility] Hematocrit Auto (Bld) [Volum e fraction]Ordered By: Dr. Meier on 08-02-2022 Hematocrit (Bld) [Volume fraction] 43.2 % 37-47 [facility] Laboratory - Chemistry and C hemistry - challengeOrdered By: Dr. Meier on 08-02-2022 ALP [Catalytic activity/Vol] 74 U/L 45-117 [facility] ALT [Catalytic activity/Vol] 21 U/L 13-56 [facility] CO2 [Moles/Vol] 24.0 mmol/L 21.0-32.0 [facility] Globulin (S) [Mass/Vol] 3.5 g/dL 2.2-4.2 [facility] Magnesium [Mass/Vol] 2.0 mg/dL 1.6-2.6 [facility] Urea nitrogen/Creatinine [Mass ratio] 16.7 mg/mg 10-20 [facility] Laboratory - Hematology and Cell countsOrdered By: Dr. Meier on 08-02-2022 Erythrocyte distribution width (RBC) [Entitic vol] 45.7 fL 35.1-43.9 [facility] Erythrocyte distribution width (RBC) [Ratio] 12.6 % 11.6-14.6 [facility] Immature granulocytes/100 WBC (Bld) 0.200 % 0.0-0.9 [facility] Comment on above: IG% - Immature Granu locytes (promyelocytes, myelocytes and metamyelocytes) > 1% indicates that a LEFT SHIFT is Present. MCH (RBC) [Entitic mass] 33.0 pg 27.0-32.0 [facility] Nucleated RBC/100 WBC (Bld) [Ratio] 0 % 0-5 [facility] MCHC Auto (RBC) [Mass/Vol]Or dered By: Dr. Meier on 08-02-2022 MCHC (RBC) [Mass/Vol] 33.6 g/dL 32-36 [facility] No Panel InformationOrdered By: Dr. Meier on 08-02-2022 Estimated Creatinine Clearance Calc 42.59 ml/min [facility] Estimated GFR (MDRD) Amer 114 mL/min >60 [facility] Comment on above: GFR Calc Estimated GFR (MDRD) Non-Af Amer 95 mL/min >60 [facility] Comment on above: Non- GFR Calc Platelets bldOrdered By: Dr. Meier on 08-02-2022 Platelets (Bld) [#/Vol] 253 10*3/uL 150-450 [facility] Serum or plasma albumin ayden urement (mass/volume)Ordered By: Dr. Meier on 08-02-2022 Albumin [Mass/Vol] 3.6 g/dL 3.2-5.0 [facility] Serum or plasma albumin/glob ulin mass ratioOrdered By: Dr. Meier on 08-02-2022 Albumin/Globulin [Mass ratio] 1.0 {ratio} 0.9-2.4 [facility] Serum or plasma calcium ayden urement (mass/volume)Ordered By: Dr. Meier on 08-02-2022 Calcium [Mass/Vol] 9.4 mg/dL 8.5-10.1 [facility] Serum or plasma creatinine m easurement (mass/volume)Ordered By: Dr. Meier on 08-02-2022 Creatinine [Mass/Vol] 0.66 mg/dL 0.55-1.02 [facility] Comment on above: The validity of the calculated GFR & GFRAA in patients over 70 years has not been determined. Clinical correlation is essential. Serum or plasma urea nitroge n measurement (mass/volume)Ordered By: Dr. Meier on 08-02-2022 Urea nitrogen [Mass/Vol] 11 mg/dL 7-18 [facility] Thin prep Papanicolaou smear with manual screeningOrdered By: Dr. Meier on 08-02-2022 Thin prep Papanicolaou smear with manual screening 16 U/L 15-37 [facility] Thin prep Papanicolaou smear with manual screening 6 5-15 [facility] Absolute lymphocyte countOrd ered By: Dr. Deal on 08-01-2022 Lymphocytes Auto (Unsp spec) [#/Vol] 2.14 10*3/uL 0.83-4.51 [facility] Basophil percentageOrdered B y: Dr. Deal on 08-01-2022 Basophils/100 WBC (Bld) 0.5 % 0-1 [facility] Chloride [Moles/Vol] 111 mmol/L 98-107 [facility] Eosinophils/100 WBC (Bld) 3.2 % 0-5 [facility] Glucose [Mass/Vol] 115 mg/dL 74-106 [facility] Comment on above: Fasting Glucose resu lt from 100 to 125 mg/dL suggests IMPAIRED HOMEOSTASIS per A.D.A. criteria. Neutrophils (Bld) [#/Vol] 3.1 10*3/uL 2.0-7.7 [facility] Neutrophils/100 WBC (Bld) 51.7 % 47-70 [facility] Potassium [Moles/Vol] 3.8 mmol/L 3.5-5.1 [facility] Sodium [Moles/Vol] 145 mmol/L 136-145 [facility] WBC (Bld) [#/Vol] 6.0 10*3/uL 4.4-11.0 [facility] Blood erythrocytes count (nu mber/volume)Ordered By: Dr. Deal on 08-01-2022 RBC (Bld) [#/Vol] 4.58 10*6/uL 4.2-5.4 [facility] [place] Blood hemoglobin measurement (mass/volume)Ordered By: Dr. Deal on 08-01-2022 Hemoglobin (Bld) [Mass/Vol] 15.2 g/dL 12.0-15.0 [facility] Blood lymphocytes/100 leukoc ytesOrdered By: Dr. Deal on 08-01-2022 Lymphocytes/100 WBC (Bld) 35.7 % 19-41 [facility] Blood monocytes/100 leukocyt esOrdered By: Dr. Deal on 08-01-2022 Monocytes/100 WBC (Bld) 8.7 % 0-10 [facility] Blood platelet mean volumeOr dered By: Dr. Deal on 08-01-2022 Platelet mean volume (Bld) [Entitic vol] 10.7 fL 6.2-12.0 [facility] Determination of erythrocyte mean corpuscular volume (MCV)Ordered By: Dr. Deal on 08-01-2022 MCV (RBC) [Entitic vol] 100.4 fL 81-99 [facility] Hematocrit Auto (Bld) [Volum e fraction]Ordered By: Dr. Deal on 08-01-2022 Hematocrit (Bld) [Volume fraction] 46.0 % 37-47 [facility] Laboratory - Chemistry and C hemistry - challengeOrdered By: Dr. Deal on 08-01-2022 CO2 [Moles/Vol] 28.0 mmol/L 21.0-32.0 [facility] Urea nitrogen/Creatinine [Mass ratio] 13.0 mg/mg 10-20 [facility] Laboratory - Hematology and Cell countsOrdered By: Dr. Deal on 08-01-2022 Erythrocyte distribution width (RBC) [Entitic vol] 48.1 fL 35.1-43.9 [facility] Erythrocyte distribution width (RBC) [Ratio] 12.9 % 11.6-14.6 [facility] Immature granulocytes/100 WBC (Bld) 0.200 % 0.0-0.9 [facility] Comment on above: IG% - Immature Granu locytes (promyelocytes, myelocytes and metamyelocytes) > 1% indicates that a LEFT SHIFT is Present. MCH (RBC) [Entitic mass] 33.2 pg 27.0-32.0 [facility] Nucleated RBC/100 WBC (Bld) [Ratio] 0.3 % 0-5 [facility] MCHC Auto (RBC) [Mass/Vol]Or dered By: Dr. Deal on 08-01-2022 MCHC (RBC) [Mass/Vol] 33.0 g/dL 32-36 [facility] No Panel InformationOrdered By: Dr. Deal on 08-01-2022 Estimated GFR (MDRD) Amer 95 mL/min >60 [facility] Comment on above: GFR Calc Estimated GFR (MDRD) Non-Af Amer 79 mL/min >60 [facility] Comment on above: Non- GFR Calc Platelets bldOrdered By: Dr. Deal on 08-01-2022 Platelets (Bld) [#/Vol] 277 10*3/uL 150-450 [facility] Serum or plasma calcium ayden urement (mass/volume)Ordered By: Dr. Deal on 08-01-2022 Calcium [Mass/Vol] 10.0 mg/dL 8.5-10.1 [facility] Serum or plasma creatinine m easurement (mass/volume)Ordered By: Dr. Deal on 08-01-2022 Creatinine [Mass/Vol] 0.77 mg/dL 0.55-1.02 [facility] Comment on above: The validity of the calculated GFR & GFRAA in patients over 70 years has not been determined. Clinical correlation is essential. Serum or plasma urea nitroge n measurement (mass/volume)Ordered By: Dr. Deal on 08-01-2022 Urea nitrogen [Mass/Vol] 10 mg/dL 7-18 [facility] Thin prep Papanicolaou smear with manual screeningOrdered By: Dr. Deal on 08-01-2022 Thin prep Papanicolaou smear with manual screening 6 5-15 [facility] Culture, urineOrdered By: Dr Zheng Deal on 06-07-2022 Bacteria identified Cx Nom (U) Klebsiella aerogenes [facility] Absolute lymphocyte countOrd ered By: Dr. Deal on 06-04-2022 Lymphocytes Auto (Unsp spec) [#/Vol] 2.84 10*3/uL 0.83-4.51 [facility] Basophil percentageOrdered B y: Dr. Deal on 06-04-2022 Basophils/100 WBC (Bld) 0.7 % 0-1 [facility] Bilirubin [Mass/Vol] 0.20 mg/dL 0.20-1.00 [facility] Comment on above: For patients on eltr ombopag therapy, use of Dimension [place] TBIL is not recommended. Chloride [Moles/Vol] 112 mmol/L 98-107 [facility] Cholesterol [Mass/Vol] 247 mg/dL <[address] [facility] Comment on above: <200 mg/dL Desirable 200-240 mg/dL Borderline >240 mg/dL High Risk Eosinophils/100 WBC (Bld) 3.1 % 0-5 [facility] Glucose [Mass/Vol] 103 mg/dL 74-106 [facility] Comment on above: Fasting Glucose resu lt from 100 to 125 mg/dL suggests IMPAIRED HOMEOSTASIS per A.D.A. criteria. Neutrophils (Bld) [#/Vol] 2.0 10*3/uL 2.0-7.7 [facility] Neutrophils/100 WBC (Bld) 36.1 % 47-70 [facility] Potassium [Moles/Vol] 3.9 mmol/L 3.5-5.1 [facility] Protein [Mass/Vol] 7.0 g/dL 6.4-8.2 [facility] Sodium [Moles/Vol] 145 mmol/L 136-145 [facility] Triglyceride [Mass/Vol] 90 mg/dL <199 [facility] Comment on above: The drugs N-Acetylcy steine and Metamizole may falsely depress this assay.Serum Triglycerides Reference Interval Normal <150 mg/dL Borderline high 150 - 199 mg/dL High 200 - 499 mg/dL Very High > or = 500 mg/dL WBC (Bld) [#/Vol] 5.6 10*3/uL 4.4-11.0 [facility] Blood erythrocytes count (nu mber/volume)Ordered By: Dr. Deal on 06-04-2022 RBC (Bld) [#/Vol] 4.25 10*6/uL 4.2-5.4 [facility] [place] Blood hemoglobin measurement (mass/volume)Ordered By: Dr. Deal on 06-04-2022 Hemoglobin (Bld) [Mass/Vol] 14.5 g/dL 12.0-15.0 [facility] Blood lymphocytes/100 leukoc ytesOrdered By: Dr. Deal on 06-04-2022 Lymphocytes/100 WBC (Bld) 51.1 % 19-41 [facility] Blood monocytes/100 leukocyt esOrdered By: Dr. Deal on 06-04-2022 Monocytes/100 WBC (Bld) 8.8 % 0-10 [facility] Blood platelet mean volumeOr dered By: Dr. Deal on 06-04-2022 Platelet mean volume (Bld) [Entitic vol] 10.0 fL 6.2-12.0 [facility] Determination of erythrocyte mean corpuscular volume (MCV)Ordered By: Dr. Deal on 06-04-2022 MCV (RBC) [Entitic vol] 103.5 fL 81-99 [facility] Hematocrit Auto (Bld) [Volum e fraction]Ordered By: Dr. Deal on 06-04-2022 Hematocrit (Bld) [Volume fraction] 44.0 % 37-47 [facility] Laboratory - Chemistry and C hemistry - challengeOrdered By: Dr. Deal on 06-04-2022 ALP [Catalytic activity/Vol] 89 U/L 45-117 [facility] ALT [Catalytic activity/Vol] 14 U/L 13-56 [facility] CO2 [Moles/Vol] 28.0 mmol/L 21.0-32.0 [facility] Globulin (S) [Mass/Vol] 3.2 g/dL 2.2-4.2 [facility] Urea nitrogen/Creatinine [Mass ratio] 19.0 mg/mg 10-20 [facility] Laboratory - Hematology and Cell countsOrdered By: Dr. Deal on 06-04-2022 Erythrocyte distribution width (RBC) [Entitic vol] 52.1 fL 35.1-43.9 [facility] Erythrocyte distribution width (RBC) [Ratio] 13.5 % 11.6-14.6 [facility] Immature granulocytes/100 WBC (Bld) 0.200 % 0.0-0.9 [facility] Comment on above: IG% - Immature Granu locytes (promyelocytes, myelocytes and metamyelocytes) > 1% indicates that a LEFT SHIFT is Present. MCH (RBC) [Entitic mass] 34.1 pg 27.0-32.0 [facility] Nucleated RBC/100 WBC (Bld) [Ratio] 0 % 0-5 [facility] MCHC Auto (RBC) [Mass/Vol]Or dered By: Dr. Deal on 06-04-2022 MCHC (RBC) [Mass/Vol] 33.0 g/dL 32-36 [facility] No Panel InformationOrdered By: Dr. Deal on 06-04-2022 Estimated GFR (MDRD) Amer 110 mL/min >60 [facility] Comment on above: GFR Calc Estimated GFR (MDRD) Non-Af Amer 91 mL/min >60 [facility] Comment on above: Non- GFR Calc Platelets bldOrdered By: Dr. Deal on 06-04-2022 Platelets (Bld) [#/Vol] 227 10*3/uL 150-450 [facility] Serum or plasma albumin ayden urement (mass/volume)Ordered By: Dr. Deal on 06-04-2022 Albumin [Mass/Vol] 3.8 g/dL 3.2-5.0 [facility] Serum or plasma albumin/glob ulin mass ratioOrdered By: Dr. Deal on 06-04-2022 Albumin/Globulin [Mass ratio] 1.2 {ratio} 0.9-2.4 [facility] Serum or plasma calcium ayden urement (mass/volume)Ordered By: Dr. Deal on 06-04-2022 Calcium [Mass/Vol] 9.4 mg/dL 8.5-10.1 [facility] Serum or plasma cholesterol in HDL measurement (mass/volume)Ordered By: Dr. Deal on 06-04-2022 Cholesterol in HDL [Mass/Vol] 76 mg/dL >40 [facility] Comment on above: The drugs N-Acetylcy steine and Metamizole may falsely depress this assay. Reference Range HDL <40 mg/dL Low HDL Cholesterol HDL >or= 60 mg/dL High HDL Cholesterol Serum or plasma cholesterol in VLDL measurement (mass/volume)Ordered By: Dr. Deal on 06-04-2022 Cholesterol in VLDL [Mass/Vol] 18 mg/dL 5-40 [facility] Serum or plasma creatinine m easurement (mass/volume)Ordered By: Dr. Deal on 06-04-2022 Creatinine [Mass/Vol] 0.68 mg/dL 0.55-1.02 [facility] Comment on above: The validity of the calculated GFR & GFRAA in patients over 70 years has not been determined. Clinical correlation is essential. Serum or plasma low density lipoprotein (LDL) cholesterol measurement (mass/volume)Ordered By: Dr. Deal on 06-04-2022 Cholesterol in LDL [Mass/Vol] 153 mg/dL 0-130 [facility] Serum or plasma urea nitroge n measurement (mass/volume)Ordered By: Dr. Deal on 06-04-2022 Urea nitrogen [Mass/Vol] 13 mg/dL 7-18 [facility] Thin prep Papanicolaou smear with manual screeningOrdered By: Dr. Deal on 06-04-2022 Thin prep Papanicolaou smear with manual screening 14 U/L 15-37 [facility] Thin prep Papanicolaou smear with manual screening 5 5-15 [facility] Bilirubin Test strip Ql (U)o n 04-19-2022 Bilirubin Ql (U) 6 mg/dL Negative [facility] Work Phone: Comment on above: COLOR OF URINE MAY A FFECT DIPSTICK RESULTS. Ketones Test strip Ql (U)on 04-19-2022 Ketones Ql (U) Negative Negative [facility] Work Phone: Nitrite Test strip Ql (U)on 04-19-2022 Nitrite Ql (U) Positive Negative [facility] Work Phone: Protein Test strip Ql (U)on 04-19-2022 Protein Ql (U) Negative Negative [facility] Work Phone: Urine blood detectionon 03-30 RBC Ql (U) 10 /ul Negative [facility] Work Phone: Urine clarityon 04-19-2022 Clarity (U) Sl. Cloudy Clear [facility] Work Phone: Urine color determinationon 04-19-2022 Color (U) SEE COMMENT BELOW Yellow [facility] Work Phone: Comment on above: Visual Urine Color: ORANGE,RESULTS MAY BE AFFECTED DUE TO COLOR INTERFERENCE Urine glucose detectionon Glucose Ql (U) Normal mg/dl Normal [facility] Work Phone: Urine leukocyte esterase det ection by dipstickon 04-19-2022 Leukocyte esterase Test strip Ql (U) 100 /ul Negative [facility] Work Phone: Urine pHon 04-19-2022 pH (U) 6.0 [pH] 5.0 - 8.0 [facility] Work Phone: Urine specific gravity measu rementon 04-19-2022 Specific gravity (U) [Rel density] 1.015 1.002-1.03 0 [facility] Work Phone: Urobilinogen Auto test strip Ql (U)on 04-19-2022 Urobilinogen Ql (U) 8 mg/dl Normal [facility] [place] Work Phone: Culture, urineon 10-12-2021 Bacteria identified Cx Nom (U) Presumptive E. coli [facility] Work Phone: Radiologyon 04-26-2021 XR Lumbar spine AP and Lateral Normal [facility] Work Phone: XR Lumbar spine AP and Lateral Please click on the link to view the study images Normal [facility] Work Phone: SPINE, LUMBOSACRAL; 2 OR 3 V IEWSon 04-26-2021 SPINE, LUMBOSACRAL; 2 OR 3 VIEWS Patient Name: ALISHA AG STUDY: Lumbar Spine, 2 views. INDICATION: post op. COMPARISON: 02/22/2021. ACCESSION NUMBER(S): [id number] ORDERING CLINICIAN: MAGGIE AUGUSTINE FINDINGS: Alignment is within normal limits. Posterior spinal instrumented fusion changes noted L2-L5 with laminectomies. Hardware is intact without perihardware fractures or lucencies. Moderate L5-S1 facet joint arthropathy. Vertebral body heights are preserved. Posterior elements are intact. IMPRESSION: 1. Posterior spinal instrumented fusion L2-L5 without hardware complication. Electronically signed by: BIRD LANGE MD Normal [facility] Radiologyon 02-22-2021 XR Lumbar spine AP and Lateral Please click on the link to view the study images [facility] Work Phone: SPINE, LUMBOSACRAL; 2 OR 3 V IEWSon 02-22-2021 SPINE, LUMBOSACRAL; 2 OR 3 VIEWS Patient Name: ALISHA YU STUDY: SPINE, LUMBOSACRAL; 2 OR 3 VIEWS; ; 02/22/2021 12:12 pm INDICATION: post op. COMPARISON: MR L-spine dated 01/26/2021 ACCESSION NUMBER(S): [id number] ORDERING CLINICIAN: MAGGIE AUGUSTINE FINDINGS: Two views of the lumbosacral spine were provided. Patient is status post posterior spinal fusion and laminectomy of L2-L5. No perihardware lucency or fracture to suggest hardware complication. Mild facet degenerative changes at L5-S1 with facet hypertrophy. Unchanged mild grade 1 anterolisthesis at L3-4. Visualized soft tissues are unremarkable. IMPRESSION: Postsurgical changes of posterior spinal fusion and laminectomy of L2-L5 without evidence of hardware complication. Mild L5-S1 facet joint degenerative changes. I personally reviewed the images/study and I agree with the findings as stated. This study was interpreted at [facility], [place], [place]. Electronically signed by: BIRD LANGE MD Normal [facility] Laboratory - Chemistry and C hemistry - challengeon 01-30-2021 Anion gap [Moles/Vol] 11 mmol/L 10 - 20 [facility] Work Phone: Calcium [Mass/Vol] 8.6 mg/dL 8.6 - 10.6 [facility] Work Phone: Chloride [Moles/Vol] 109 mmol/L above high threshold 98 - 107 [facility] Work Phone: CO2 [Moles/Vol] 26 mmol/L 21 - 32 [facility] Work Phone: Creatinine [Mass/Vol] 0.62 mg/dL See Below [facility] Work Phone: Comment on above: Reference Range: 0.5 0 - 1.05 Glucose [Mass/Vol] 114 mg/dL above high threshold 74 - 99 [facility] Work Phone: Potassium [Moles/Vol] 4.0 mmol/L 3.5 - 5.3 [facility] Work Phone: Sodium [Moles/Vol] 142 mmol/L 136 - 145 [facility] Work Phone: Urea nitrogen [Mass/Vol] 12 mg/dL 6 - 23 [facility] Work Phone: Laboratory - Hematology and Cell countson 01-30-2021 Erythrocyte distribution width (RBC) [Ratio] 13.1 % See Below [facility] Work Phone: Comment on above: Reference Range: 11. 5 - 14.5 Hematocrit (Bld) [Volume fraction] 37.1 % See Below [facility] Work Phone: Comment on above: Reference Range: 36. 0 - 46.0 Hemoglobin (Bld) [Mass/Vol] 12.1 g/dL See Below [facility] Work Phone: Comment on above: Reference Range: 12. 0 - 16.0 MCHC (RBC) [Mass/Vol] 32.6 g/dL See Below [facility] Work Phone: Comment on above: Reference Range: 32. 0 - 36.0 MCV (RBC) [Entitic vol] 103 fL above high threshold 80 - 100 [facility] Work Phone: Platelets (Bld) [#/Vol] 183 10*3/uL 150 - 450 [facility] Work Phone: RBC (Bld) [#/Vol] 3.61 {x10E12/L} below low threshold See Below [facility] Work Phone: Comment on above: Reference Range: 4.0 0 - 5.20 WBC (Bld) [#/Vol] 6.9 10*3/uL 4.4 - 11.3 [facility] Work Phone: No Panel Informationon 01-30 >60 >60 [facility] Work Phone: Comment on above: CALCULATIONS OF SHAKILA MATED GFR ARE PERFORMED USING THE MDRD STUDY EQUATION FOR THE IDMS-TRACEABLE CREATININE METHODS. CLIN CHEM 2007;53:766-72 0.0 {/100_WBC} 0.0-0.0 [facility] Work Phone: Laboratory - Chemistry and C hemistry - challengeon 01-29-2021 Anion gap [Moles/Vol] 11 mmol/L 10 - 20 [facility] Work Phone: Calcium [Mass/Vol] 8.4 mg/dL below low threshold 8.6 - 10.6 [facility] Work Phone: Chloride [Moles/Vol] 111 mmol/L above high threshold 98 - 107 [facility] Work Phone: CO2 [Moles/Vol] 24 mmol/L 21 - 32 [facility] Work Phone: Creatinine [Mass/Vol] 0.59 mg/dL See Below [facility] Work Phone: Comment on above: Reference Range: 0.5 0 - 1.05 Glucose [Mass/Vol] 120 mg/dL above high threshold 74 - 99 [facility] Work Phone: Potassium [Moles/Vol] 3.5 mmol/L 3.5 - 5.3 [facility] Work Phone: Sodium [Moles/Vol] 142 mmol/L 136 - 145 [facility] Work Phone: Urea nitrogen [Mass/Vol] 16 mg/dL 6 - 23 [facility] Work Phone: Laboratory - Hematology and Cell countson 01-29-2021 Erythrocyte distribution width (RBC) [Ratio] 13.6 % See Below [facility] Work Phone: Comment on above: Reference Range: 11. 5 - 14.5 Hematocrit (Bld) [Volume fraction] 34.0 % below low threshold See Below [facility] Work Phone: Comment on above: Reference Range: 36. 0 - 46.0 Hemoglobin (Bld) [Mass/Vol] 11.1 g/dL below low threshold See Below [facility] Work Phone: Comment on above: Reference Range: 12. 0 - 16.0 MCHC (RBC) [Mass/Vol] 32.6 g/dL See Below [facility] Work Phone: Comment on above: Reference Range: 32. 0 - 36.0 MCV (RBC) [Entitic vol] 104 fL above high threshold 80 - 100 [facility] Work Phone: Platelets (Bld) [#/Vol] 172 10*3/uL 150 - 450 [facility] Work Phone: RBC (Bld) [#/Vol] 3.27 {x10E12/L} below low threshold See Below [facility] Work Phone: Comment on above: Reference Range: 4.0 0 - 5.20 WBC (Bld) [#/Vol] 7.8 10*3/uL 4.4 - 11.3 [facility] Work Phone: No Panel Informationon 01-29 >60 >60 [facility] Work Phone: Comment on above: CALCULATIONS OF SHAKILA MATED GFR ARE PERFORMED USING THE MDRD STUDY EQUATION FOR THE IDMS-TRACEABLE CREATININE METHODS. CLIN CHEM 2007;53:766-72 0.0 {/100_WBC} 0.0-0.0 [facility] Work Phone: Laboratory - Chemistry and C hemistry - challengeon 01-28-2021 Anion gap [Moles/Vol] 15 mmol/L 10 - 20 [facility] Work Phone: Calcium [Mass/Vol] 8.6 mg/dL 8.6 - 10.6 [facility] Work Phone: Chloride [Moles/Vol] 109 mmol/L above high threshold 98 - 107 [facility] Work Phone: CO2 [Moles/Vol] 24 mmol/L 21 - 32 [facility] Work Phone: Creatinine [Mass/Vol] 0.70 mg/dL See Below [facility] Work Phone: Comment on above: Reference Range: 0.5 0 - 1.05 Glucose [Mass/Vol] 126 mg/dL above high threshold 74 - 99 [facility] Work Phone: Potassium [Moles/Vol] 4.4 mmol/L 3.5 - 5.3 [facility] Work Phone: Sodium [Moles/Vol] 144 mmol/L 136 - 145 [facility] Work Phone: Urea nitrogen [Mass/Vol] 16 mg/dL 6 - 23 [facility] Work Phone: Laboratory - Hematology and Cell countson 01-28-2021 Erythrocyte distribution width (RBC) [Ratio] 13.7 % See Below [facility] Work Phone: Comment on above: Reference Range: 11. 5 - 14.5 Hematocrit (Bld) [Volume fraction] 38.5 % See Below [facility] Work Phone: Comment on above: Reference Range: 36. 0 - 46.0 Hemoglobin (Bld) [Mass/Vol] 12.5 g/dL See Below [facility] Work Phone: Comment on above: Reference Range: 12. 0 - 16.0 MCHC (RBC) [Mass/Vol] 32.5 g/dL See Below [facility] Work Phone: Comment on above: Reference Range: 32. 0 - 36.0 MCV (RBC) [Entitic vol] 105 fL above high threshold 80 - 100 [facility] Work Phone: Platelets (Bld) [#/Vol] 220 10*3/uL 150 - 450 [facility] Work Phone: RBC (Bld) [#/Vol] 3.68 {x10E12/L} below low threshold See Below [facility] Work Phone: Comment on above: Reference Range: 4.0 0 - 5.20 WBC (Bld) [#/Vol] 13.8 10*3/uL above high threshold 4.4 - 11.3 [facility] Work Phone: No Panel Informationon 01-28 >60 >60 [facility] Work Phone: Comment on above: CALCULATIONS OF SHAKILA MATED GFR ARE PERFORMED USING THE MDRD STUDY EQUATION FOR THE IDMS-TRACEABLE CREATININE METHODS. CLIN CHEM 2007;53:766-72 0.0 {/100_WBC} 0.0-0.0 [facility] Work Phone: Complete Blood Count + Diffe rentialon 01-27-2021 Basophils/100 WBC (Bld) 0.3 % 0.0 - 2.0 [facility] Work Phone: Erythrocyte distribution width (RBC) [Ratio] 13.2 % See Below [facility] Work Phone: Comment on above: Reference Range: 11. 5 - 14.5 Hematocrit (Bld) [Volume fraction] 44.3 % See Below [facility] Work Phone: Comment on above: Reference Range: 36. 0 - 46.0 Hemoglobin (Bld) [Mass/Vol] 14.7 g/dL See Below [facility] Work Phone: Comment on above: Reference Range: 12. 0 - 16.0 Lymphocytes/100 WBC (Bld) 15.6 % See Below [facility] Work Phone: Comment on above: Reference Range: 13. 0 - 44.0 MCHC (RBC) [Mass/Vol] 33.2 g/dL See Below [facility] Work Phone: Comment on above: Reference Range: 32. 0 - 36.0 MCV (RBC) [Entitic vol] 102 fL above high threshold 80 - 100 [facility] Work Phone: Monocytes/100 WBC (Bld) 2.2 % 2.0 - 10.0 [facility] Work Phone: Neutrophils/100 WBC (Bld) 80.4 % See Below [facility] Work Phone: Comment on above: Reference Range: 40. 0 - 80.0 Platelets (Bld) [#/Vol] 227 10*3/uL 150 - 450 [facility] Work Phone: RBC (Bld) [#/Vol] 4.36 {x10E12/L} See Below [facility] Work Phone: Comment on above: Reference Range: 4.0 0 - 5.20 WBC (Bld) [#/Vol] 6.9 10*3/uL 4.4 - 11.3 [facility] Work Phone: Complete Blood Count + Differential 0.02 {x10E9/L} See Below [facility] Work Phone: Comment on above: Reference Range: 0.0 0 - 0.10 Complete Blood Count + Differential 0.06 {x10E9/L} See Below [facility] Work Phone: Comment on above: Reference Range: 0.0 0 - 0.70 Complete Blood Count + Differential 0.15 {x10E9/L} See Below [facility] Work Phone: Comment on above: Reference Range: 0.1 0 - 1.00 Complete Blood Count + Differential 1.07 {x10E9/L} below low threshold See Below [facility] Work Phone: Comment on above: Reference Range: 1.2 0 - 4.80 Complete Blood Count + Differential 5.54 {x10E9/L} See Below [facility] Work Phone: Comment on above: Reference Range: 1.2 0 - 7.70 Complete Blood Count + Differential 0.9 % 0.0 - 6.0 [facility] Work Phone: Complete Blood Count + Differential 0.6 % 0.0 - 0.9 [facility] Work Phone: Comment on above: Immature Granulocyte Count (IG) includes promyelocytes, myelocytes and metamyelocytes but does not include bands. Percent differential counts (%) should be interpreted in the context of the absolute cell counts (cells/L). Complete Blood Count + Differential 0.0 {/100_WBC} 0.0-0.0 [facility] Work Phone: Coronavirus 2019 RNA by PCR, Screening Asymptomticon 01-27-2021 Coronavirus 2019 RNA by PCR, Screening Asymptomtic Not detected Normal See Below [facility] Work Phone: Comment on above: SOURCE: Nasal, Nasop haryngealReference Range: Not Detected.This test has received FDA Emergency Use Authorization (EUA) and has been verified by [facility] ([facility]). This test is only authorized for the duration of time that circumstances exist to justify the authorization of the emergency use of in vitro diagnostic tests for the detection of SARS-CoV-2 virus and/or diagnosis of COVID-19 infection under section 564(b)(1) of the Act, 21 U.S.C. 360bbb-3(b)(1), unless the authorization is terminated or revoked sooner. [facility] is certified under CLIA-88 as qualified to perform high complexity testing. Testing is performed in the [facility] located at [address] [place] [address].SARS-CoV-2/Flu/RSV Multiplex Test: Fact sheet for providers: https://www.fda.gov/media/024281/downloadFact sheet for patients: https://www.fda.gov/media/533685/download Laboratory - Blood bankon 07 -02-2021 ABO group Nom (Bld) O [facility] Work Phone: Blood group antibody screen Ql Negative [facility] Work Phone: Rh immune globulin screen (Bld) [Interp] Positive [facility] Work Phone: Laboratory - Chemistry and C hemistry - challengeon 01-27-2021 Anion gap [Moles/Vol] 12 mmol/L 10 - 20 [facility] Work Phone: Calcium [Mass/Vol] 9.7 mg/dL 8.6 - 10.6 [facility] Work Phone: Chloride [Moles/Vol] 106 mmol/L 98 - 107 [facility] Work Phone: CO2 [Moles/Vol] 27 mmol/L 21 - 32 [facility] Work Phone: Creatinine [Mass/Vol] 0.69 mg/dL See Below [facility] Work Phone: Comment on above: Reference Range: 0.5 0 - 1.05 Glucose [Mass/Vol] 137 mg/dL above high threshold 74 - 99 [facility] Work Phone: Potassium [Moles/Vol] 4.0 mmol/L 3.5 - 5.3 [facility] Work Phone: Sodium [Moles/Vol] 141 mmol/L 136 - 145 [facility] Work Phone: Urea nitrogen [Mass/Vol] 16 mg/dL 6 - 23 [facility] Work Phone: Laboratory - Coagulationon 0 01-27-2021 aPTT Coag (PPP) [Time] 31 s 25 - 35 [facility] Work Phone: Comment on above: THE APTT IS NO LONGE R USED FOR MONITORING UNFRACTIONATED HEPARIN THERAPY. FOR MONITORING HEPARIN THERAPY, USE THE HEPARIN ASSAY. INR Coag (PPP) [Relative time] 1.0 {INR} 0.9 - 1.1 [facility] Work Phone: PT Coag (PPP) [Time] 11.6 s See Below [facility] Work Phone: Comment on above: Reference Range: 10. 1 - 13.3 No Panel Informationon 01-27 Please click on the link to view the study images Normal [facility] Work Phone: [email or web address]?RetrieveTestByDateTim e?WhkogarOC=[email or web address]&Da te=09-04-2020&Time=05%3a 25%3a21%3a00&TestType=EC G&Site=1&OutputType=PDF& Ext=PDF [facility] Work Phone: Please see ED Provid er Note for formal interpretation [facility] Work Phone: Normal [facility] Work Phone: 390 1 [facility] Work Phone: 422 1 [facility] Work Phone: 190 1 [facility] Work Phone: 133 1 [facility] Work Phone: 230 1 [facility] Work Phone: 11 1 [facility] Work Phone: 73 1 [facility] Work Phone: 10 1 [facility] Work Phone: 68 1 [facility] Work Phone: 392 1 [facility] Work Phone: 384 1 [facility] Work Phone: 70 1 [facility] Work Phone: 194 1 [facility] Work Phone: 63 1 [facility] Work Phone: >60 >60 [facility] Work Phone: Comment on above: CALCULATIONS OF SHAKILA MATED GFR ARE PERFORMED USING THE MDRD STUDY EQUATION FOR THE IDMS-TRACEABLE CREATININE METHODS. CLIN CHEM 2007;53:766-72 Radiology 01-27-2021 XR Lumbar spine Views Please click on th e link to view the study images Normal [facility] Work Phone: Culture, urine Bacteria identified Cx Nom (U) Raoultella ornithinolytica [facility] Work Phone: Bacteria identified Cx Nom (U) Positive [facility] Work Phone: Bacteria identified Cx Nom (U) Klebsiella aerogenes [facility] Work Phone: Vital Signs Date Time Vital Sign Value Performing Clinician Facility 09-09-2023 08:02-0500 Body height 157.[address] Glory Deal Work Phone: [facility] 09-09-2023 08:02-0500 Body mass index (BMI) [Ratio] 25.6 kg/m2 Dr. Glory Deal Work Phone: [facility] 09-09-2023 08:02-0500 Body temperature 98.4 [degF] Dr. Glory Deal Work Phone: [facility] 09-09-2023 08:02-0500 Body weight 63.[address] Glory Deal Work Phone: [facility] 09-09-2023 08:02-0500 Diastolic blood pressure 73 mm[Hg] Dr. Glory Deal Work Phone: [facility] 09-09-2023 08:02-0500 Heart rate 73 /min Dr. Glory Deal Work Phone: [facility] 09-09-2023 08:02-0500 Respiratory rate 18 /min Dr. Glory Deal Work Phone: [facility] 09-09-2023 08:02-0500 SaO2% (BldA) [Mass fraction] 95 % Dr. Glory Deal Work Phone: [facility] 09-09-2023 08:02-0500 Systolic blood pressure 135 mm[Hg] Dr. Glory Deal Work Phone: [facility] 08-20-2023 11:38-0500 Body height 157.[address] Glory Deal Work Phone: [facility] 08-20-2023 11:38-0500 Body weight 62.[address] Glory Deal Work Phone: [facility] 08-20-2023 11:38-0500 Heart rate 78 /min Dr. Glory Deal Work Phone: [facility] 08-20-2023 11:38-0500 SaO2% (BldA) [Mass fraction] 97 % Dr. Glory Deal Work Phone: [facility] 08-06-2023 07:48-0500 Body height 157.[address] Glory Deal Work Phone: [facility] 08-06-2023 07:48-0500 Body mass index (BMI) [Ratio] 25 kg/m2 Dr. Glory Deal Work Phone: [facility] 08-06-2023 07:48-0500 Body temperature 97.1 [degF] Dr. Glory Deal Work Phone: [facility] 08-06-2023 07:48-0500 Body weight 62.[address] Glory Dael Work Phone: [facility] 08-06-2023 07:48-0500 Diastolic blood pressure 72 mm[Hg] Dr. Glory Deal Work Phone: [facility] 08-06-2023 07:48-0500 Heart rate 67 /min Dr. Glory Deal Work Phone: [facility] 08-06-2023 07:48-0500 Respiratory rate 20 /min Dr. Glory Deal Work Phone: [facility] 08-06-2023 07:48-0500 SaO2% (BldA) [Mass fraction] 96 % Dr. Glory Deal Work Phone: [facility] 08-06-2023 07:48-0500 Systolic blood pressure 126 mm[Hg] Dr. Glory Deal Work Phone: [facility] 06-10-2023 10:54-0500 Body height 157.5 cm Maggie Aaronlav PA-C Work Phone: [facility] 06-10-2023 10:54-0500 Body mass index (BMI) [Ratio] 24.31 kg/m2 Maggie Vaclav PA-C Work Phone: [facility] 06-10-2023 10:54-0500 Body weight 60.3 kg Maggie Aaronlav PA-C Work Phone: [facility] 03-28-2023 13:28-0400 Respiratory rate 18 /min Dr. Glory Deal Work Phone: [facility] 03-28-2023 09:51-0400 SaO2% (BldA) [Mass fraction] 96 % Dr. Glory Deal Work Phone: [facility] 03-28-2023 09:45-0400 Body height 157.[address] Glory Deal Work Phone: [facility] 03-28-2023 09:45-0400 Body temperature 97 [degF] Dr. Glory Deal Work Phone: [facility] 03-28-2023 09:45-0400 Diastolic blood pressure 87 mm[Hg] Dr. Glory Deal Work Phone: [facility] 03-28-2023 09:45-0400 Heart rate 99 /min Dr. Glory Deal Work Phone: [facility] 03-28-2023 09:45-0400 Systolic blood pressure 128 mm[Hg] Dr. Glory Deal Work Phone: [facility] 11-14-2022 08:20-0400 Body height 154.[address] Glory Deal Work Phone: [facility] 10-17-2022 13:18-0400 Body mass index (BMI) [Ratio] 26.4 kg/m2 Dr. Glory Deal Work Phone: [facility] 10-17-2022 13:18-0400 Body weight 63.[address] Glory Deal Work Phone: [facility] 09-08-2022 10:45-0500 Body height 154.[address] Glory Deal Work Phone: [facility] 09-08-2022 10:45-0500 Body mass index (BMI) [Ratio] 26 kg/m2 Dr. Glory Deal Work Phone: [facility] 09-08-2022 10:45-0500 Body temperature 97.7 [degF] Dr. Glory Deal Work Phone: [facility] 09-08-2022 10:45-0500 Body weight 62.[address] Glory Deal Work Phone: [facility] 09-08-2022 10:45-0500 Diastolic blood pressure 70 mm[Hg] Dr. Glory Deal Work Phone: [facility] 09-08-2022 10:45-0500 Heart rate 93 /min Dr. Glory Deal Work Phone: [facility] 09-08-2022 10:45-0500 Respiratory rate 17 /min Dr. Glory Deal Work Phone: [facility] 09-08-2022 10:45-0500 SaO2% (BldA) [Mass fraction] 95 % Dr. Glory Deal Work Phone: [facility] 09-08-2022 10:45-0500 Systolic blood pressure 132 mm[Hg] Dr. Glory Deal Work Phone: [facility] 08-02-2022 12:09-0500 Diastolic blood pressure 69 mm[Hg] [facility] 08-02-2022 12:09-0500 Heart rate 84 /min [facility] 08-02-2022 12:09-0500 Respiratory rate 16 /min [facility] 08-02-2022 12:09-0500 SaO2% (BldA) [Mass fraction] 96 % [facility] 08-02-2022 12:09-0500 Systolic blood pressure 126 mm[Hg] [facility] 08-02-2022 06:39-0500 Body height 157.48 cm [facility] Work Phone: 08-02-2022 06:39-0500 Body mass index (BMI) [Ratio] 25.1 kg/m2 [facility] 08-02-2022 06:39-0500 Body temperature 98.2 [degF] [facility] 08-02-2022 06:39-0500 Body weight 62.4 kg [facility] 02-04-2021 10:00-0400 Body temperature 98.42 [degF] Pcp [...] Date Encounter Type Care Provider Facility Start: 12-24-2024 End: 12-24-2024 ambulatory Glory Deal Facility:[facility] Start: 11-13-2024 End: 11-13-2024 ambulatory Glory Deal Facility:[facility] Start: 08-07-2024 ambulatory Andrés Barron lity:[facility] Start: 08-07-2024 End: 08-07-2024 ambulatory Andrés Brizuela Facility:[facility] Start: 07-10-2024 End: 07-10-2024 ambulatory Andrés Brizuela Facility:[facility] Start: 07-07-2024 End: 07-07-2024 ambulatory Glory Deal Facility:[facility] Start: 06-30-2024 End: 06-30-2024 ambulatory Glory Deal Facility:[facility] Start: 03-11-2024 End: 03-11-2024 ambulatory Glory Deal Facility:[facility] Start: 10-29-2023 End: 10-29-[address] Glory Deal Work Phone: [facility] Work Phone: Start: 10-29-2023 End: 10-29-[address] Glory Deal Work Phone: [facility] Work Phone: Start: 09-09-2023 End: 09-09-[address] Glory Deal Work Phone: [facility]-Pulmonary Medicine [facility] Work Phone: Start: 08-21-2023 Non-patient / Non-visit Dr. Juan Daniel Deal Work Phone: [facility] Start: 08-20-2023 End: 08-20-[address] Glory Deal Work Phone: [facility] Work Phone: Start: 08-20-2023 End: 08-20-[address] Glory [facility] Work Phone: Start: 08-16-2023 Non-patient / Non-visit Dr. Juan Daniel Deal Work Phone: [facility] Start: 08-15-2023 End: 08-15-[address] Glory Deal Work Phone: [facility] Work Phone: Start: 08-15-2023 End: 08-15-[address] Glory Deal [facility] Work [facility]: Start: 08-06-2023 End: 08-06-[address] Glory Deal Work Phone: [facility] Work Phone: Start: 08-06-2023 End: 08-06-[address] Glory Deal Work Phone: [facility]-Pulmonary Medicine [facility] [place] Work Phone: Start: 07-19-2023 End: 07-19-[address] Glory Deal Work Phone: [facility] [facility] Work Phone: Start: 07-16-2023 End: 07-16-[address] Glory Deal Work Phone: [facility]-Physical Therapy Work Phone: Start: 06-18-2023 End: 06-18-2023 ambulatory [facility] Work Phone: Start: 06-18-2023 End: 06-18-2023 Patient encounter procedure [facility]-Radiology, [facility] Work Phone: Start: 06-12-2023 Registered Recurring [facility]-Physical Therapy Work Phone: Start: 06-11-2023 End: 06-11-2023 Patient encounter procedure [facility]-Outpatient Breast Imaging Work Phone: Start: 06-10-2023 End: 06-10-2023 ambulatory [facility] Ambulatory Start: 06-10-2023 End: 06-10-2023 Postop follow up visit related to original px [facility] PA-C Work Phone: [facility] Comment on above: Postoperative pain a fter spinal surgery; Lumbar pain Start: 04-17-[address] Ania luque [place] Facility:[id number] Start: 04-17-2023 Patient encounter procedure Mariana Kingston James Work Phone: KV-Rpbbzkoykrhr-Npyfyhu d Fanny 170 DO Work Phone: Start: 04-17-2023 Postop follow up vis it related to original px Mariana A Malys Work Phone: RP-Pbopfdvsaskj-Daecjz 210 Work Phone: Start: 04-15-[address] Ania Dos Santos Facility:[id number] Start: 04-10-2023 AUDIT Mariana A Malys Work Phone: PF-Pcwkuwzdrhky-Yhlwufo d [place] 170 DO Work Phone: Start: 04-03-2023 AUDIT Mariana A Malys Work Phone: QL-Yosivmggcjhc-Opsrvx 200 Work Phone: Start: 04-02-2023 AUDIT Mariana A Malys Work Phone: BZ-Kcyiniluateh-Aicdpbp 12 DO Work Phone: Start: 03-28-2023 End: 03-28-2023 Emergency department patient visit Dr. Glory Deal Work Phone: [facility]-Emergency Department Work Phone: Start: 03-20-2023 End: 03-26-[address] Ania Dos Santos Facility:[facility] Start: 03-15-2023 AUDIT Referring Prov ider Unknown OG-Zvhmjgwaryjvpd-Wpkqf Ctr for Perioperative Med Work Phone: Start: 03-15-[address] Ania Dos Santos Facility:[facility] Start: 03-15-2023 Encounter for blood typing Dr. Ania Dos Santos [facility] Start: 03-15-2023 Encounter for preprocedural laboratory examination Dr. Ania Dos Santos [facility] Start: 02-25-2023 Office outpatient vi sit 25 minutes Referring Provider Unknown TV-Qzpubyybrnyl-Gaiouqh e Work Phone: Start: 02-25-[address] Ania Dos Santos Facility:[id number] Start: 02-18-2023 Office outpatient vi sit 15 minutes Referring Provider Unknown JF-Vnnizyvlljzu-Gveammi e Work Phone: Start: 02-18-[address] Ania Dos Santos Facility:[id number] Start: 02-13-2023 End: 02-13-[address] Glory Deal Work Phone: [facility] Work Phone: Start: 01-17-2023 End: 01-17-[address] Glory Deal Work Phone: [facility] [facility] Start: 01-11-2023 End: 01-11-[address] Glory Deal Work Phone: [facility] Work Phone: Start: 01-11-2023 End: 01-11-[address] Glory Deal Work Phone: [facility]-Physical Therapy Work Phone: Start: 11-15-2022 End: 11-15-[address] Glory Deal Work Phone: [facility] Start: 11-14-2022 End: 11-14-[address] Glory Deal Work Phone: [facility] Work Phone: Start: 11-14-2022 End: 11-14-[address] Glory Deal Work Phone: [facility] Start: 10-17-2022 End: 10-17-[address] Glory Deal Work Phone: [facility] Start: 10-16-2022 End: 10-16-[address] Glory Deal Work Phone: [facility] Start: 09-18-2022 End: 09-18-[address] Glory Deal Work Phone: [facility] Work Phone: Start: 09-18-2022 End: 09-18-[address] Glory Deal Work Phone: [facility]-Ultrasound, [facility] Start: 09-08-2022 End: 09-08-[address] Glory Deal Work Phone: [facility] Work Phone: Start: 09-08-2022 End: 09-08-[address] Glory Deal Work Phone: [facility]-Laboratory, Specimen Start: 09-08-2022 End: 09-08-[address] Glory Deal Work Phone: [facility] Start: 08-02-2022 End: 08-02-2022 Emergency department patient visit [facility]-Emergency Department Start: 08-01-2022 End: 08-01-2022 Patient encounter procedure [facility]-Radiology, [place] Start: 06-05-2022 End: 06-05-2022 Patient encounter procedure [facility]-Laboratory, Specimen Start: 06-04-2022 End: 06-04-2022 ambulatory [facility] Work Phone: Start: 06-04-2022 End: 06-04-2022 Patient encounter procedure [facility]-Outpatient Breast Imaging Start: 04-19-2022 End: 04-19-2022 ambulatory [facility] Work Phone: Start: 04-19-2022 End: 04-19-2022 Patient encounter procedure [facility]-Laboratory, [place] Start: 10-20-2021 End: 10-20-2021 Patient encounter procedure [facility]-Ultrasound, [facility] Start: 10-12-2021 End: 10-12-2021 Patient encounter procedure [facility]-Laboratory, Specimen Start: 09-19-2021 Registered Recurring [facility]-Physical Therapy Start: 06-28-2021 Patient encounter [facility] Work Phone: Start: 04-28-2021 Chart Update Referring Prov ider Unknown AR-Cnneklrnkcpn-Ylnmrt 210 Work Phone: Start: 04-26-2021 Postop follow up vis it related to original px Referring Provider Unknown VU-Objcrflryryh-Bbrugt 210 Work Phone: Start: 04-17-2021 AUDIT Referring Prov ider Unknown AA-Qavqahkfeubo-Xmnhus 210 Work Phone: Start: 02-22-2021 Postop follow up vis it related to original px Referring Provider Unknown OZ-Jctecgkcayvm-Vbtqkn 210 Work Phone: Start: 02-22-2021 POV, Provider: Maggie Augustine, Status: Pen, Time: 11:45 AM Referring Provider Unknown EI-Gaaqehjstmoq-Wkpeavj 5100 Work Phone: Start: 02-20-2021 AUDIT Referring Prov ider Unknown UM-Vdcvfindkpys-Kcnrdqk 5100 Work Phone: Start: 01-27-2021 End: 02-04-2021 Evaluation and management of inpatient Aniapratik Dos Santos [facility] [id number] Procedures Date Procedure Procedure Detail Performing Clinician Start: 10-29-2023 CT angiography of he ad and neck Dr. Glory Deal Work Phone: Start: 07-19-2023 Radiologic examinati on of knee Dr. Glory Deal Work Phone: Start: 06-18-2023 Plain chest X-ray Start: 06-11-2023 Screening mammography Start: 03-28-2023 CT of abdomen and pe lvis without contrast Dr. Glory Deal Work Phone: Start: 03-28-2023 CT of lumbar spine Dr. Glory Deal Work Phone: Start: 03-15-[address] Nico Dos Santos Comment on above: Performed By: #### T +S #### [facility] [address] [place] [address] Start: 02-13-2023 MRI of lumbar spine Dr. Glory Deal Work Phone: Start: 01-17-2023 Plain x-ray of pelvi s and lower extremity Dr. Glory Deal Work Phone: Start: 11-14-2022 CT of pelvis with contrast Dr. Glory Deal Work Phone: Start: 10-17-2022 X-ray of lumbar spin e, two or three views Dr. Glory Deal Work Phone: Start: 10-16-2022 Plain x-ray of pelvi s and lower extremity Dr. Glory Deal Work Phone: Start: 10-16-2022 Radiologic examinati on of knee Dr. Glory Deal Work Phone: Start: 09-18-[address] Juan Daniel Deal Work Phone: Start: 08-02-2022 US scan of gallbladder Start: 08-02-2022 CT of abdomen and pe lvis without contrast Start: 08-01-2022 Plain chest X-ray Start: 06-04-2022 Screening mammography Start: 10-20-2021 Transvaginal echography Start: 10-20-2021 Pelvic echography Start: 10-12-2021 Urine culture Urine culture Urine culture Dr. Glory malin Work Phone: Urine culture Dr. Glory malin Work Phone: Plan of Treatment Date Care Activity Detail Author Start: 05-15-2028 DTaP/Tdap/Td Vaccine s (2 - Td or Tdap) DTaP/Tdap/Td Vaccines (2 - Td or Tdap) [facility] Start: 06-10-2023 End: 06-07-2024 XR Lumbar spine 2 or 3 Views XR lumbar spine 2-3 views Imaging Routine Lumbar pain Expected: 06/10/2023, Expires: 06/07/2024 [facility] Service Area Work Phone: Comment on above: Expected: 06/10/2023 , Expires: 06/07/2024 Start: 04-15-2023 FUV, Provider: Ania Dos Santos, Status: Pen, Time: 9:30 AM FUV, Provider: Ania Dos Santos, Status: Pen, Time: 9:30 AM [facility]-Pouknfeyrvscjs-Mwgsq [facility] Perioperative [facility] Work Phone: Start: 03-29-2023 Influenza vaccination Influenza Vacc ine (#1) [facility] Start: 03-20-2023 SURGCMC, Provider: Ania Dos Santos, Status: Pen, Time: 10:00 AM SURGCMC, Provider: Ania Dos Santos, Status: Pen, Time: 10:00 AM QK-Rkarvopbegos-Ymmclwy e Work Phone: Start: 03-20-2023 SURGCMC, Provider: Ania Dos Santos, Status: Pen, Time: 8:30 AM SURGCMC, Provider: Ania Dos Santos, Status: Pen, Time: 8:30 AM PU-Rhcxitsctsnpue-Qlkth [facility] Per[facility]operative [facility] Work Phone: Start: 02-25-2023 FUV, Provider: Ania Dos Santos, Status: Pen, Time: 8:30 AM FUV, Provider: Ania Dos Santos, Status: Pen, Time: 8:30 AM BB-Xryyixwxples-Etqbili e Work Phone: Start: 08-02-2022 [facility] Start: 10-30-2021 COVID-19 Vaccine (3 - Moderna series) COVID-19 Vaccine (3 - Moderna series) [facility] Start: 06-28-2021 VIRFUVHOME, Provider : Maggie Augustine, Status: Pen, Time: 11:00 AM VIRFUVHOME, Provider: Maggie Augustine, Status: Pen, Time: 11:00 AM RC-Qnqmbvrrjxoq-Vowyst 210 Work Phone: Start: 04-26-2021 POV, Provider: Maggie Augustine, Status: Pen, Time: 11:45 AM POV, Provider: Maggie Augustine, Status: Pen, Time: 11:45 AM RG-Vzjcdgcyfauo-Waiyxh 210 Work Phone: Start: 02-22-2021 Patient encounter procedure [facility] Start: 2018 Pneumococcal Vaccine : 65+ Years (1 - PCV) Pneumococcal Vaccine: 65+ Years (1 - PCV) [facility] Start: 2003 Zoster Vaccines (1 o f 2) Zoster Vaccines (1 of 2) [facility] Start: 1993 Screening for malignant neoplasm of breast Mammogram [facility] Start: 1971 Hepatitis C screening Hepatitis C Sc reening [facility] Start: 1953 Lipid panel Lipid Panel [facility] Start: 1953 Medicare Annual Wellness Visit Medicare Annual Wellness Visit (AWV) [facility] Start: 1953 Screening for malignant neoplasm of colon [facility] [facility]: 1955 Screening for osteoporosis Bone Density Scan [facility] Exercise tolerance test [facility] Measurement of respiratory function [facility] Patient Education [facility] Work Phone: Patient referral [facility] Work Phone: Immunizations Immunization Date Immunization Notes Care Provider Jethro riggins 09-04-2021 Moderna COVID-19 Vac cine 100 MCG/0.5ML Intramuscular Suspension Referring Provider Unknown EJ-Eeqvraddgdtx-Bd [facility] Work Phone: 08-03-2021 Moderna COVID-19 Vac cine 100 MCG/0.5ML Intramuscular Suspension Referring Provider Unknown RT-Pmtjsiizawub-Pf [facility] Work Phone: 05-15-2018 tetanus toxoid, redu magda diphtheria toxoid, and acellular pertussis vaccine, adsorbed Referring Provider Unknown HW-Jttdizecudwm-Td sman [address] Work Phone: Payers Date Payer Category Payer Self-pay [id number] 2024 Unknown [id number] 2024 Unknown [id number] 2020 Unknown 2016 Unknown [id number] 1955 Unknown [id number] 2.16. 840.1.067244.3.579.2.356 1955 Unknown [id number] 2.16. 840.1.791105.3.579.2.356 1955 Unknown [id number] 2.16. 840.1.932997.3.579.2.356 1955 Unknown [id number] 2.16. 840.1.198192.3.579.2.356 1955 Unknown [id number] 2.16. 840.1.512451.3.579.2.356 1955 Unknown [id number] 2.16. 840.1.472452.3.579.2.356 1955 Unknown [id number] 2.16. 840.1.236712.3.579.2.356 1955 Unknown [id number] 2.16.8 40.1.893969.3.579.2.1244 Medicare [id number] Unknown [id number] 2.16.8 40.1.646260.3.579.2.462 Unknown [id number] 2.16.8 40.1.783831.3.579.2.462 Unknown [id number] 2.16.8 40.1.664835.3.579.2.462 Unknown [id number] 2.16.8 40.1.638152.3.579.2.462 Unknown [id number] 2.16.8 40.1.123496.3.579.2.462 Unknown [id number] 2.16.8 40.1.328306.3.579.2.462 Unknown [id number] 2.16.8 40.1.024619.3.579.2.462 Unknown [id number] 2.16.8 40.1.559723.3.579.2.462 Unknown [id number] 2.16.8 40.1.437186.3.579.2.462 Social History Date Type Detail Facility [facility] Start: 05-14-2021 End: 09-09-2023 Tobacco smoking consumption unknown [facility] Start: 08-06-[address] [facility] Start: 08-06-[address] [facility] Start: 08-06-[address] Non-sm[address] [facility] Start: 1955 Sex Assigned At Female [facility] Start: 06-10-2023 Tobacco smoking status NHIS Never smoked tobacco [facility] Work Phone: Start: 06-10-2023 Tobacco use and exposure Smokeless tobacco non-user [facility] Work Phone: Start: 1955 [facility] Gender identity Not on file [facility] Work Phone: Start: 05-31-2023 End: 06-10-2023 Exposure to SARS-CoV-2 (event) Not sure [facility] Work Phone: Medical Equipment Procedure Code Equipment Code Equipment Original Text Equipment Identifier Dates Bone Graft, Osteocel Plus, Cellular,Matrix, 10cc Case [id number] Start: 01-27-2021 Comment on above: Description: Convert ed from [facility]. Please see archived information for full log information. Carmen Calixto-O, 6.5x50mm 2s Polyaxial Case [id number] Start: 01-27-2021 Comment on above: Description: Convert ed from [facility]. Please see archived information for full log information. Carmen Calixto Lock, 5.5mm Open Tulip Case [id number] Start: 01-27-2021 Comment on above: Description: Convert ed from [facility]. Please see archived information for full log information. Goals Date Patient Goal Desired Activity /State Functional Status Date Assessment Result Facility Bladder: fully continent [facility] Mental Status Date Assessment Result Facility 08-02-2022 Cognitive function Level Of Consciousness Awake [facility] Work Phone: 01-27-2021 Cognitive functi ons [id number] [facility] Clinical Notes 11-30-2020 to 08-07-2024 Maggie Augustine PA-C - 06/10/2023 11:00 AM EST Note Date & Type Note Facility 08-07-2024 Note [facility] Medical Records Department [address] [place] [address] History Physical Exam 08/07/24 0829 MR#: [id number] Acct: [id number] Name: ALISHA AG Rep #: [id number] : 1955 68 From: Andrés Brizuela MD PCP: Dr. Glory Deal MD Status:[facility] Location: [place] [address] History and Physical Date of Admission: 08/07/24 Intake Vital Signs 09/09/2407:02 07/07/2413:28 07/10/2413:21 Height 5 ft 2 in 5 ft 2 in 5 ft 2 in Weight: 152 lb 2 oz 153 lb 4 oz BMI 27.8 28.0 BP 127/72 H Blood Pressure Location Rt brachial Position Sitting Respiration 18 Pulse 78 Pulse Source Monitor Temp 97.6 F L Temp Source Temporal Pulse Oximetry (%) 96 Oxygen Delivery Method room air Intake Visit Reasons: POSITIVE COLOGUARD Chief Complaint: positive cologuard Is patient in pain?: No Allergies house dust Allergy (Intermediate, Verified 07/10/24 13:22) Othertree and shrub pollen Allergy (Intermediate, Verified 07/10/24 13:22) Otherchocolate flavor Allergy (Verified 07/10/24 13:22) Unknowncosmetic Allergy (Verified 07/10/24 13:22) NEEDS FOLLOW-UPfexofenadine (From Ariadna) Allergy (Verified 07/10/24 13:22) Unknownnut - unspecified Allergy (Verified 07/10/24 13:22) NEEDS FOLLOW-UPpineapple Allergy (Verified 07/10/24 13:22) Unknownadhesive tape Adverse Reaction (Verified 07/10/24 13:22) unknownamoxicillin (Amoxicillin) Adverse Reaction (Verified 07/10/24 13:22) Otheratropine (From ) Adverse Reaction (Verified 07/10/24 13:22) trouble breathingavocado Adverse Reaction (Verified 07/10/24 13:22) UNKNOWNbupropion HCl (From Wellbutrin) Adverse Reaction (Verified 07/10/24 13:22) Otheregg Adverse Reaction (Verified 07/10/24 13:22) Othererythromycin base Adverse Reaction (Verified 07/10/24 13:22) Diarrheahyoscyamine (From ) Adverse Reaction (Verified 07/10/24 13:22) trouble breathingmorphine Adverse Reaction (Verified 07/10/24 13:22) Itchingphenobarbital (From ) Adverse Reaction (Verified 07/10/24 13:22) trouble breathingscopolamine (From ) Adverse Reaction (Verified 07/10/24 13:22) trouble breathing Medications ???Medication ???Instructions ???Recorded ???Confirmed ???Type lansoprazole 30 mg capsule,delayed 30 mg PO DAILY Gerd 02/06/14 07/10/24 History release ascorbic acid (vitamin C) 1,000 mg 1,000 mg PO DAILY 07/31/17 07/10/24 History tablet garlic 1 tab PO BID 07/31/17 07/10/24 History amlodipine 10 mg tablet 10 mg PO DAILY #30 tabs 05/17/21 07/10/24 Rx Lactobacillus acidophilus 1 tab PO DAILY 07/30/23 07/10/24 History (Acidophilus chewable tablet) ashwagandha extract 120 mg capsule mg PO DAILY 07/30/23 07/10/24 History cinnamon bark 500 mg capsule 500 mg PO DAILY 07/30/23 07/10/24 History (Cinnamon) cranberry 400 mg capsule 400 mg PO DAILY 07/30/23 07/10/24 History cyclobenzaprine 10 mg tablet See Rx Instructions PO .COMPLEX 07/30/23 07/10/24 History magnesium oxide 400 mg PO BID 07/30/23 07/10/24 History melatonin 5 mg capsule See Rx Instructions PO DAILY 07/30/23 07/10/24 History multivitamin (One Daily 1 tab PO DAILY 07/30/23 07/10/24 History Multivitamin tablet) tmeuuzcvhywn-kvmwwohz-vakojr 1 tab PO DAILY 07/30/23 07/10/24 History tablet (Vision Plus Lutein tablet) omega 4-czb-btf-fish oil 1,200 mg cap PO 07/30/23 07/10/24 History (144 mg-216 mg) capsule (Fish Oil) pramipexole 0.125 mg tablet mg PO QHS 07/30/23 07/10/24 History quercetin 500 mg capsule 250 mg PO 07/30/23 07/10/24 History sumatriptan succinate 100 mg tablet 100 mg PO .COMPLEX 07/30/23 07/10/24 History trazodone 50 mg tablet 50 mg PO QHS 07/30/23 07/10/24 History venlafaxine 75 mg tablet 75 mg PO BID Depression 07/30/23 07/10/24 History vitamin B complex 1 tab PO DAILY 07/30/23 07/10/24 History acetaminophen 500 mg tablet 500 mg PO Q6H PRN 03/11/24 07/10/24 History (Tylenol Extra Strength) docusate sodium 50 mg capsule 100 mg PO DAILY stool softner 03/11/24 07/10/24 History (Stool Softener) turmeric 400 mg capsule mg PO 07/10/24 07/10/24 History Have you fallen in the past year?: No PFSH Medical History (Updated 07/10/24 @ 13:21 by Whitney Johnson LPN) Positive colorectal cancer screening using Cologuard test Bilateral shoulder pain Aftercare following right elbow joint replacement surgery Dizziness Fall Depression Contusion of hand Contusion of right shoulder region Concussion Melanoma GERD (gastroesophageal reflux disease) Osteopenia IBS (irritable bowel syndrome) Hypoglycemia Low calcium levels Anxiety and depression child Difficulty balancing Incontinence Back pain Asthma Knee pain Hay fever Arthritis Surgical History S/P laminectomy with spinal fusion History of l (more content not included)... [facility] 08-21-2023 Procedure note [facility] 08-16-2023 Procedure note [facility] 06-10-2023 History of Present illness Narrative Alisha returns today for her second postop appointment. Date of surgery was March 20. Overall, the patient is doing fantastic. She is getting stronger every day. She is doing more as well. She is looking forward to getting back in with her [employer] choir, Justine jones. She is working with [...] or grammatical errors documented in this encounter [facility] Work Phone: 03-28-2023 Discharge summary Note Date/Time March 28, 2023 10:14am [facility] Medical Records Department [address] [place] [address] Emergency Department Summary 03/28/23 MR#: [id number] Acct: [id number] Name: ALISHA AG Rep #:[id number] : 1955 67 From: Jerel Arzate PCP: Dr. Glory Deal MD Status:REG ER Location: ED HPI HPI - Fall History of Present Illness Chief Complaint: Fall PFSH PFSH Medical History Anxiety and depression Arthritis Asthma Back pain child Concussion Contusion of hand Contusion of right shoulder region Depression Difficulty balancing Dizziness Fall GERD (gastroesophageal reflux disease) Hay fever Hypoglycemia IBS (irritable bowel syndrome) Incontinence Knee pain Low calcium levels Melanoma Osteopenia Home Medications lansoprazole 30 mg capsule,delayed release 30 mg PO DAILY Gerd 02/06/14 [History Last Taken 08/04/19 08:00 30 mg] montelukast 10 mg tablet 10 mg PO DAILY asthma 02/06/14 [History Last Taken 08/04/19 08:00 10 mg] ascorbic acid (vitamin C) 1,000 mg tablet 1,000 mg PO DAILY 07/31/17 [History Last Taken Unknown] cholecalciferol (vitamin D3) 25 mcg (1,000 unit) capsule (Vitamin D3) 400 unit PO DAILY 07/31/17 [History Last Taken Unknown] docusate sodium 50 mg capsule (Stool Softener) 100 mg PO 4X/DAY stool softner 07/31/17 [History Last Taken Unknown] garlic 1 tab PO BID 07/31/17 [History Last Taken Unknown] vitamin A 2,400 mcg capsule 10,000 unit PO QDAY 07/31/17 [History Last Taken Unknown] vitamin E 200 unit capsule 400 unit PO QDAY 07/31/17 [History Last Taken Unknown] calcium carbonate 600 mg calcium (1,500 mg) tablet 600 mg PO DAILY 05/28/18 [History Last Taken Unknown] melatonin 5 mg capsule 5 mg PO DAILY 10/03/19 [History Last Taken Unknown] amlodipine 10 mg tablet 10 mg PO DAILY #30 tabs 05/17/21 [Rx Last Taken Unknown] gabapentin 100 mg capsule 200 mg PO TID tingling 12/13/21 [History Last Taken Unknown] venlafaxine 75 mg tablet 75 mg PO DAILY Depression 12/13/21 [History Last Taken Unknown] cetirizine 10 mg tablet 10 mg PO DAILY PRN 09/08/22 [History Last Taken Unknown] fluticasone propionate 220 mcg/actuation HFA aerosol inhaler (Flovent HFA) 1 puff inhalation BID 09/08/22 [History Last Taken Unknown] meloxicam 15 mg tablet 15 mg PO DAILY PRN pain #30 tabs 11/15/22 [Rx Last Taken Unknown] oxycodone 5 mg capsule 5 mg PO Q6H PRN pain 5 days #20 caps 03/28/23 [Rx Last Taken Unknown] Allergy/AdvReac Type Severity Reaction Status Date / Time house dust Allergy Intermediate Other Verified 03/28/23 09:44 tree and shrub pollen Allergy Intermediate Other Verified 03/28/23 09:44 chocolate flavor Allergy Unknown Verified 03/28/23 09:44 cosmetic Allergy NEEDS Verified 03/28/23 09:44 FOLLOW-UP fexofenadine [From Ariadna] Allergy Unknown Verified 03/28/23 09:44 nut - unspecified Allergy NEEDS Verified 03/28/23 09:44 FOLLOW-UP pineapple Allergy Unknown Verified 03/28/23 09:44 amoxicillin [Amoxicillin] AdvReac Other Verified 03/28/23 09:44 avocado AdvReac UNKNOWN Verified 03/28/23 09:44 bupropion HCl AdvReac Other Verified 03/28/23 09:44 [From Wellbutrin] egg AdvReac Other Verified 03/28/23 09:44 morphine AdvReac Itching Verified 03/28/23 09:44 Family History Other Asthma Colon cancer Surgical History Hx of knee surgery S/P breast lumpectomy Social History household members: none current occupational status: retired and disabled Smoking Status: Never smoker alcohol intake: never substance use type: does not use what type of physical activity do you participate in: walking and bicycling frequency: 1-2 times per week seatbelt use: always do you feel safe at home: Yes additional social history: single EXAM Physical Exam Const Vital Signs: 03/28/23 09:45 03/28/23 09:51 Temperature 97 F L Temperature Source Temporal Pulse Rate 99 Respiratory Rate 14 Respiratory Effort Normal Non-Labored Respiratory Depth Normal Respiratory Pattern Normal Blood Pressure 128/87 H Blood Pressure Mean 100 Pulse Ox 97 96 Oxygen Delivery Method Room Air Room Air MDM MDM MDM Narrative Medical decision making narrative: HISTORY OF PRESENT ILLNESS: 67-year-old female here for fall. Notes mechanical fall from standing prior to arrival. Denies syncope. Denies head trauma or loss of consciousness. States he has had back pain since her recent laminectomy revision surgery. States she has no bowel or bladder incontinence, no urinary retention, no focal numbness weakness in the legs. Does not use IV drugs have recent fever. She states whenshe fell she injured the right side of her abdomen. She denies any other symptoms such as hip pain, knee pain ankle pain. Patient notes acute on chronicabdominal pain. She states has been on for a very long time. States she thought her surgery of her back would help her abdominal pain. REVIEW OF SYSTEMS: Pertinent positives: Abdominal pain, back pain Pertinent negatives: Head trauma, loss of consciousness PHYSICAL EXAM: Nursing triage notes reviewed, Vital signs reviewed Constitutional: please see mdm HENT: MMM, no hemotympanum, no nasal septal hematoma, no intraoral lesions, no cephalhematoma, atraumatic normocephalic Eyes: Pupils equal round and reactive to light, Extraocular muscles intact Neck: No stridor, no JVD, full neck ROM, no midline C-spine tenderness Lungs: Clear to auscultation, No wheezing or rales. No increased work of breathing, no conversational dyspnea, no accessory muscle use, no nasal flaring. No respiratory distress noted, no flail chest, Heart: Regular rate and rhythm, No murmurs, No rubs and No gallops, 2+ distal pulses (radial, femoral, posterior tibial) in all extremities Abdomen: Soft, there is no tenderness, rigidity, rebound or guarding, no obviousperitoneal signs, no palpable pulsatile abdominal masses, no auscultated abdominal bruit : No CVAT, pelvis stable to compression. Back: TTP over lumbar spine over surgical incision site, no step-offs or deformities noted Extremities: No edema, no obvious extremity injuries, full range of motion Neuro: Intact sensation L1-S1 dermatomal distributions. Intact 5/5 strength in hip flexion (T12-L3). Knee extension (L2-L4). Ankle dorsiflexion (L4-L5). Ankle plantar flexion (S1). Great toe extension (L5). 2+ patellar and AchillesDTRs. Skin: Surgical site lumbar spine clean dry intact with no fluctuance induration purulence or pain. MEDICAL DECISION MAKING: Chief Complaint: Fall External records reviewed: MRI of the lumbar spine from February 13, 2023 shows multilevel degenerative changes in the following IMPRESSION: 1. Multilevel degenerative changes, as described above. 2. No marrow edema or fracture or compression deformity is present. No aggressive abnormalities are seen. 3. Posterior spinal rods and pedicle screws spanning the L2-L5 levels with associated posterior decompressive defects. Moderate to severe disc space narrowing at T11-T12 with a large extruded focus of disc material anteriorly. Factors affecting care: none hypertension, GERD, status post laminectomy Social determinants of health: none History obtained from others: none Consults: none ALL IMAGES (IF OBTAINED) HAVE BEEN PERSONALLY REVIEWED AND INTERPRETED BY MYSELF. [facility] Narrative: Patient is hemodynamically stable, afebrile, nontoxic-appearing. I considered the following differential diagnosis: Lumbar spine abnormality, intra-abdominal abnormality, contusion to the back, postsurgical pain, muscle skeletal pain of the abdomen I obtained a CT scan lumbar spine, CT scan of the abdomen pelvis without any acute traumatic injuries. To give oxycodone here for pain control. CT scan was negative for acute traumatic injuries. Tertiary exam without new traumatic injuries. The patient is appropriate discharge home. Will give oral narcotic medicine. Had a shared decision-making discussion with the patient about risk of oral narcotic medicine include increased risk of falls. Patient states she took her narcotic care and felt well enough to take at home. Discussed taking before bedtime. Discussed follow-up with her surgeon doctor for further outpatient pain control. The patient and/or family, caregivers express understanding. The patient and/orfamily, caregivers agrees with the plan. Shared decision making: I will have a discussion with the patient and or visitors regarding risk/benefits of further testing or admission. They will be made aware of of the risk/benefits inherent in this decision they will be given the opportunity to voice understanding. Total critical care time today provided was at least 0 minutes. This excludes separately billable procedures. Critical care time (if documented) is secondary to the patient having high probability of clinically significant/life threatening deterioration in the patient's condition which required my urgent intervention. Impression: Fall Back contusion Abdominal contusion Postoperative pain Disposition: Discharge home Radiography Diagnostic Testing: Clinical Impression(s) from Imaging Studies Abdomen/Pelvis CT 03/28/23 11:20 IMPRESSION: Distended gallbladder with multiple gallstones. Right renal cyst. Electronically Signed: Dimitri Ordonez MD at 11:54 EDT , Lumbar Spine CT 03/28/23 11:20 IMPRESSION: Status post multilevel laminectomy with intrapedicle screw and pancho fixation. No acute abnormality is seen. Multilevel disc space narrowing and spondylosis. Electronically Signed: Dimitri Ordonez MD at 12:11 EDT , Discharge Plan Triage Chief Complaint: Fall ED Provider: Jerel Dover Dx/Rx/DC Orders Clinical Impression: History of gallstones, Back contusion, Abdominal pain, Fall Instructions: Bruises (Contusions) Prescriptions: New oxycodone 5 mg capsule 5 mg PO Q6H PRN (Reason: pain) 5 Days Qty: 20 0RF No Action vitamin A 8,000 unit capsule 10,000 unit PO QDAY ascorbic acid (vitamin C) 1,000 mg tablet 1,000 mg PO DAILY cholecalciferol (vitamin D3) [Vitamin D3] 1,000 unit capsule 400 unit PO DAILY vitamin E 200 unit capsule 400 unit PO QDAY garlic tablet tablet 1 tab PO BID docusate sodium [Stool Softener] 50 mg capsule 100 mg PO 4X/DAY cetirizine 10 mg tablet 10 mg PO DAILY PRN fluticasone propionate [Flovent HFA] 220 mcg/actuation HFA aerosol inhaler 1 puff inhalation BID meloxicam 15 mg tablet 15 mg PO DAILY PRN (Reason: pain) Qty: 30 0RF Rx Instructions: Do not take in conjunction with other NSAIDs. Tylenol is okay. lansoprazole 30 MG capsule 30 mg PO DAILY montelukast 10 MG tablet 10 mg PO DAILY venlafaxine 75 mg tablet 75 mg PO DAILY Rx Instructions: 75mg q am, 37.5mg q afternoon calcium carbonate 600 MG tablet 600 mg PO DAILY gabapentin 100 mg capsule 200 mg PO TID Patient Comments: TAKE 1 CAPSULE BY MOUTH THREE TIMES DAILY melatonin 5 MG capsule 5 mg PO DAILY amlodipine 10 mg Tablet 10 mg PO DAILY Qty: 30 0RF Primary Care Provider: Glory Deal Referrals: Glory Deal MD [Primary Care Provider] - Activity Restrictions/Additional Instructions: Thank you for trusting us with your care today! Please take Tylenol (2 pills, 650 mg), ibuprofen (2 pills, 400 mg) every 6 hoursas needed for pain and fever control. Please take oral oxycodone has been prescribed if the above regimen does not control your pain. Please return to the emergency department if your symptoms change or worsen. Specifically develop vomiting, cannot take pain medication by mouth, if you develop bowel or bladder incontinence, develop focal weakness or loss of sensation in your legs, if develop urinary retention or decree sensation around your private region Please follow with your primary care physician and surgeon for further outpatient evaluation and management. Disposition Disposition: Home, Self Care What to do if you have Problems For any increased pain, shortness of breath, bleeding, nausea or vomiting, chestpain, or any unexpected problems, contact your Primary Care Provider. Call [facility] ([phone]) or report to the closest Emergency Room. Call 911 if necessary. 03/28/23 8480 <Electronically signed by Jerel Dover DO> Cosigner Signature (if applicable): CC: Dr. Glory Deal MD ~ Signed [facility] Work Phone: [phone]) 676-151808-29-2023 NoteSend Summary: Discharge Summary Providers: Provider RoleProvider Name Benja Santiago Zachary PrimaryMalys, Lisa A Note Recipients: Ania Dos Santos MD Malys, Lisa A, DO - [phone] [] Benja Toscano DO Discharge: Summary: Admission Date: .20-Mar-2023 08:01:00 Discharge Date: 26-Mar-2023 Attending Physician at Discharge: Ania Dos Santos Admission Reason: s/p laminectomy and [...] this procedure. Patient received 24 hours of freida-operative antibiotics. Patient recovered in the PACU before [...] Up Appointments: Follow-Up Appointment 01: Physician/Dept/Service: Dr. Ania Dos Santos/ Orthopaedic Surgery/ Spine Reason for Referral: Postoperative Follow Up Appointment Scheduled Date/Time: 15-Apr-2023 09:30 Location: [address] [place] [address] [address] Phone Number: Office: [phone] Discharge Medications: Home Medication cetirizine 10 mg [...] as documented in the note. Electronic Signatures: Ania Dos Santos) (Signed 10-Apr-2023 15:10) Authored: Note Completion Co-Signer: Send Summary, Summa (more content not included)...[facility]08-23-2023 NoteClinical Note - Pharmacy v2: Education: Document TopicMedication Education MedicationMeds to Beds: Patient declines Meds to Beds service at discharge. Pharmacy: [facility] [place] Sources used to confirm home medication list: [facility] note from 03/11, surescrilloyd, OARRs and Patient interview (good historian- also [...] Medication reconciliation complete Please reach out via [employer] for questions, or if no response call [phone] or vocera [facility] Svetlana Sparks, [place], [facility], 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 REVISION L1-2 LAMINECTOMY AND FUSION 2. Repair of incidental durotomy Anesthesia: Aiden Benjamin Estimated Blood Loss: 100cc Findings: Severe stenosis, [...] facet joints at T12-L1, L1-L2, and the pancho between L2 and L3. Transverse processes of [...] nerve was identified and protected using a [place] elevator. The pars at each level was undercut using a small [place] rongeur and a [place] elevator was easily passed out the neural [...] bilaterally at L1 in a standard fashion. Pancho to pancho connectors were placed at the interspace between L2 and L3 along the previous pancho. Fluoroscopy was used to verify pancho and screw positioning. C shaped rods were [...] This procedure was performed with a physician's business banking sales assistant as no qualified orthopedic resident was available to assist. Bianca Bah was my full and primary business banking sales assistant for the duration of the operation. Electronic Signatures: Ania Dos Santos) (Signed 20-Mar-2023 13:19) Authored: Post-Operative Note, Chart Review, Note Completion Last Updated: 20-Mar-2023 13:19 by Ania Dos Santos)[facility]08-23-20[facility] History of Present illness Narrative* Alisha returns today for her first postop appointment. Date of surgery was March 20 where she und erwent a revision, L1-2 laminectomy and fusion with a dural repair. * Overall, the patient is doing very well. She states that her preop symptoms have drastically improved. The only thing she is dealing with is beltline numbness and occasional hip and groin burning sensation. She is ambulating without any assistance, she said she discontinued using her walker earlierthis week. She has normal appetite, full control of her bowel and bladder. She is taking her pain medication as prescribed. She did ask for refill on the oxycodone as well as a refill on the muscle relaxer. * On exam, her incision is healing appropriately. No signs of infection or drainage. * We will obtain x-rays of her lumbar spine and review the images after they are done. * We did discuss her limitations and restrictions moving forward. When she is off of her pain medication she will be able to start to drive. We talked about slowly increasing her lifting restrictions every week. She can slowly start to bend, and twist more. * She was given a referral for outpatient physical therapy and she will follow- up with us in 2 monthsat the [place] office and I will obtain x-rays done as well. * I reviewed the complete 30-point review of systems that was documented on the scanned patient intake form. All other systems are non-contributory except as defined in history of present illness. * This note was dictated using speech recognition software and was not corrected for spelling or grammatical errors * . [facility] [address] Work Phone: 1(949) 960-650608-23-2023 NoteHistory & Physical Reviewed: I have reviewed the History and Physical [...] the note. I personally evaluated the patient [id number] Electronic Signatures: Ania Dos Santos) (Signed 04-Apr-2023 07:07) Authored: Note Completion Co-Signer: History & Physical Reviewed, ERAS, Consent, Note Completion Tyron Johns (Resident)) (Signed 20-Mar-2023 06:11) Authored: History & Physical Reviewed, ERAS, Consent, Note Completion Last Updated: 04-Apr-2023 07:07 by Ania Dos Santos)[facility]08-11-2023 Discharge summary Author Estrada Amin [facility] March 08, 2023 1:48pm Note Date/Time March 08, 2023 1: 48pm [facility] Physical Therapy [facility] [address] [place] [address] [address] [place] [address] / REHABILITATION SERVICES DISCHARGE SUMMARY MR#: [id number] Acct: [id number] Name: ALISHA AG Rep #: [id number] : [id number] 67 From: Estrada Amin DPT, OCS, CSCS Referring Dr.: Dr. Glory Deal MD Status: REG RCR Insurance: [facility] Patient Information Patient Information: ALISHA AG was seen in my office for initial evaluation on 12/25/22. The following Plan of Care was established for this patient: POC Established Initial Frequency: 2x /Week Initial Duration: 4-6 Weeks Anticipated Interventions Patient/Client Instruction: Educate patient on: Condition and Plan of Care For the Purpose of:: To decrease pain, To improve nutrient delivery to tissue, To improve muscle performance and motor function and To increase tolerance to activity/condition/position Therapeutic Exercise to Include: Strength training, Flexibilty training, Gait and locomotor training, Passive ROM, Active ROM and Dynamic Lumbar Stabilization For the Purpose of:: To decrease pain, To increase ROM, To improve nutrient delivery to tissue, To improve muscle performance and motor function, To increase tolerance to activity/condition/position and To improve gait and locomotor functions Manual Therapy Techniques to Include: Mobilization and Soft tissue mobilization For the Purpose of:: To decrease pain and To increase ROM Thermo therapy (hot pack): Yes For the Purpose of:: To improve nutrient delivery to tissue Last Seen Last Seen: This patient was last seen in our office 01/11/23. Pertinent comments regardingtheir Physical therapy will appear below: Pt seen 3 visits of POC and cancelled the rest stating she wanted to see doctor as she was not sure PT was helping. At this point, it has been over 6 weeks Twyla will discontinue due to nonattendance. At this point I will be discontinuing this patient from physical therapy. I would be happy to see this patient again in the future if found appropriate by the physician. Thank you! Estrada Amin DPT, OCS, CSCS Balance/Gait/Functional tests Balance/Special Test Scores Lower Extremity Functional Score: 24 <Electronically signed by Estrada Amin DPT, SHORTY, CSCS> 03/08/23 9062 CC: Dr. Glory Deal MD ~ EBG Signed [facility] Work Phone: 1(386) 387-624907-24-2023 History of Present illness Narrative* Patient returns for follow-up. I performed a elbow 2-5 posterior spinal fusion with decompression for cauda equina syndrome in 2020. She did very well following that operation with improvement in herpain and bladder function. * Over the last year she has had progressively worsening lateral thigh pain and burning, it radiates down the back of her hamstrings. It is worse with standing and walking, improved with rest. She has to use a walker for ambulation. She has been treated with physical and aquatic therapy. * She recently had new x-rays and MRI but she did not bring them with her today. * On exam she walks with a forward leaning gait. She does not have any focal neurologic deficits. Negative straight leg raise test. No pathologic reflexes. * I recommended at this point that she follow-up with me next week and bring her MRI on a disc. She is going to get that and see me next week. * This note was dictated using speech recognition software and was not corrected for spelling or grammatical errors. [facility] Work Phone: 1(980) 979-568907-02-2021 History of Present illness Narrative* Alisha returns today for her first postop appointment. * Date of surgery was January 27 where she underwent an L2-5 decompression and fusion. * The patient is at today's visit alone, she is currently at a rehab facility. * In regards to her current symptoms, patient informed me that her preop symptoms are improving. Her incontinence has completely resolved. Her right foot drop that she had preoperatively has also improved. She is using a walker to help her ambulate. She does get physical therapy weekly at the rehab [facility]. She is unsure of when she is being discharged from them and returning home. As far as symptoms that are concerning her, she does note having some bilateral hip pain other than that she does nothave any other concerns. Her bowel function is normal her bladder function is also normal. She doesnote having an upset GI system from the food and does have some diarrhea periodically but nothing abnormal. * She has been managing her pain with Tylenol. Her current pain level today is 3/10. The rehab centeris managing her meds, she does not need any refills. * X-rays of her lumbar spine are obtained. Results images reviewed with patient. These do show properhealing and alignment of her fusion. * On physical exam, she is ambulating in an upright position with assistance of a walker. She is improved strength in her lower extremities bilaterally. Her right foot drop has improved. She is neurologically intact. * On exam, her incision is healing nicely. No signs of infection or drainage. * Moving forward, she was provided with a follow-up for 2 months. We will obtain AP LAT of her lumbarspine then. We did discuss increasing activity as tolerated. She had numerous questions and concerns and I did answer them all to the best my ability. I did fill out the necessary paperwork for the rehab center. * Her current pain level today is 10/05 * I reviewed the complete 30-point review of systems that was documented on the scanned patient intake form. All other systems are non-contributory except as defined in history of present illness. * This note was dictated using speech recognition software and was not corrected for spelling or grammatical errors. [facility] [address] Work Phone: 1([phone]) 477-851107-02-2021 History of Present illness Narrative* Alisha returns today for her second postop appointment. Date of surgery was January 27 where she underwent an L2-5 decompression and fusion. * Since last office visit, the patient has been [...] had on the right side but she isdoing activity as tolerated. * She is not taking any postop pain meds. * sHe does not need any referrals for physical therapy. * X-rays of her lumbar spine are obtained today. Results images reviewed with patient as well as compared to previous imaging. These results do show proper healing and alignment. No signs of hardware malfunction. * On exam, she is ambulating in an upright position with improved strength in her bilateral lower extremities. She has normal sensation. Neurologically intact. * Moving forward, the patient is doing significantly better. She is very happy and pleased with her progress thus far. We did discuss her restrictions moving forward with activity as tolerated. She does live in [facility] and did request that her next appointment be virtual, we will set this is afollow-up appointment in 2-3 months for a clinical recheck. If the patient is doing well this will be her last visit. She did give me an updated phone number to call her. * [phone] * I will call her for her virtual appointment to see how she is doing. * I reviewed the complete 30-point review of systems that was documented on the scanned patient intake form. All other systems are non-contributory except as defined in history of present illness. * This note was dictated using speech recognition software and was not corrected for spelling or grammatical errors [facility] [address] Work Phone: 1(691) 995-356105-05-2021 Evaluation note* Psychological: Appropriate mood and behaviorLymphatic: No significant lymphadenopathyMusculoskeletal: [...] no distress, alert and cooperative [facility] Work Phone: Evaluation note* Diagnosis Onset Date Resolution Status Dysuria acute [facility] Work Phone: Evaluation note* Diagnosis Onset Date Resolution Status Dysuria acute History of lumbar surgery no neactive Left hip pain noneactive Lt inguinal pain acute Lt inguinal pain acute [facility] Work Phone: Evaluation note* Diagnosis Onset Date Resolution Status Lt inguinal pain acute [facility] Work Phone: Evaluation note* Diagnosis Postoperative pain after spinal surgery Lumbar pain Lumbago documented in this encounter [facility] Work Phone: Evaluation note* Diagnosis Onset Date Resolution Status Osteoarthritis of right knee noneactive Asthma chronic [facility] Work Phone: Evaluation note* Diagnosis Onset Date Resolution Status Osteoarthritis of right knee noneactive Asthma chronic Cough chronic [facility] Work Phone: History of Present illness Narrative* Patient returns for follow-up regarding her back and leg pain. She brought her MRI with her today. She recently completed a course of physical therapy at [facility] in [facility]. She is quite miserable and can barely [...] complications. I also explained that the typical bonilla ccess rates for operation such as this fall in the 80-85% range, and that there is a small chance that there will be no improvement, or even less commonly, worsening of the preoperative symptoms. Sheverbalized understanding of the risks, benefits, and alternatives to surgical treatment. The plan will be for revision L1-2 laminectomy and fusion. Surgery was [facility]. * This note was dictated using speech recognition software and was not corrected for spelling or grammatical errors. XO[facility]Rfqxsraug[facility]Sntbuz[facility] Work Phone: Hospital Discharge instructions* Activity:activity with [...] Therapy Orders:Occupational Therapy Orders: Eval and Treat ([facility]), 1-3 times/weekPhysical Therapy Orders: Eval and Treat ([facility]), 1-3 times/week * Provider Follow Up:Physician To Follow at Skilled/Rehab: Attending Physician at Skilled/Rehab * Follow Up Appointment 1:Physician/Dept/Service: Dr. Ania Dos Santos/ Orthopaedic Surgery/ SpineAnthony for Referral: Postoperative Follow-Up AppointmentScheduled Date/Time: 22-Feb-2021 11:45[facility] [address] [facility] [address], Phone Number: Office: Sec. Shruthi) - [phone]: Please Call Pretty Yu RN at [phone] For Any Post-Op Questions * Safety:Siderails: PRNRestraints: noSitter: noFall Risk: weakness * Incision 1:Location: posterior spineDressing: foam tapeDressing Change Frequency: leave in place until saturday then ABDs with paper tape [facility] Additional Instructions CT abdomen pelvis no colitis. Potassium 3.3 on labs. Gallstones noted on CT confirmed with ultrasound with no signs of cholecystitis. Continue oral fluids for hydration. Follow-up with your doctor. Case management discussed with you in the emergency department. Return if any worsening symptoms.[facility] Work Phone: Hospital Discharge instructions Additional Instructions Thank you for trusting us with your care today! Please take Tylenol (2 pills, 650 mg), ibuprofen (2 pills, 400 mg) every 6 hours as needed for pain and fever control. Please take oral oxycodone has been prescribed if the above regimen does not control your pain. Please return to the emergency department if your symptoms change or worsen. Specifically develop vomiting, cannot take pain medication by mouth, if you develop bowel or bladder incontinence, develop focal weakness or loss of sensation in your legs, if develop urinary retention or decree sensation around your private region Please follow with your primary care physician and surgeon for further outpatient evaluation and management.[facility] Work Phone: Reason for referral (narrative)* Reason for Referral: L3-L4 laminectomy, L2-5 PSIF, application of bone allograft [facility] Chief Complaint POVpovVirtual Visit to discus lumbar painFUV- low back painFUV- Back painPost op Post op Summary Purpose Family History No Family History Records Found Relationship Condition Age at Onset Recorded Date/T asia Not Specified Malignant neoplasm of colon Unknown Asthma Unknown Relationship Condition Age at Onset Recorded Date/T asia Not Specified Malignant neoplasm of colon Unknown Asthma Unknown father Malignant neoplasm Unknown Advance Directives No Advanced Directives Records Found Advance Directive Response Recorded Date/ Time Living Will No May 14 3:51pm Power of Executive Director [employer] No May 14, 2021 3:51pm Advance Directive Response Recorded Date/ Time Living Will No October 17th, 20 21 2:51pm Power of Executive Director [employer] No May 14, 2021 2:51pm Advance Directive Response Recorded Date/ Time Living Will No August 02 6:42am Power of Executive Director [employer] No August 02 6:42am Advance Directive Response Recorded Date/ Time Living Will No November 14, 2022 8:20am Power of Executive Director [employer] No November 14 8:20am Advance Directive Response Recorded Date/ Time Living Will No March 28 3 9:51am Power of Executive Director [employer] No March 28 023 9:51am Advance Directive Response Recorded Date/ Time Living Will No March 28 3 8:51am Power of Executive Director [employer] No March 28 8:51am Chief Complaint and Reason for Visit Chief Complaint POST CONCUSSION, HANNA TIGO/ RX HERE LLQ PAIN Chief Complaint URINE- Dysuria Chief Complaint URINE- Dysuria SCREENING Chief Complaint URINE- Dysuria SCREENING CHEST XRAY covid positive general illness Chief Complaint SCREENING CHEST XRAY covid positive general illness Urinary tract infection UTI Reason for Visit Dysuria Chief Complaint CHEST XRAY covid positive general illness Urinary tract infection UTI LEFT KNEE Rm 3 Lumbar SPINE Rm 1 LEFT HIP PAIN LUMBER SPINE Reason for Visit Dysuria History of lumbar surgery Left hip pain Lt inguinal pain Lt inguinal pain Chief Complaint LEFT HIP PAIN LUMBER SPINE CAUDA EQUINA SYNDROME RX HERE XRAY LOSS OF BLADDER CONTROL Reason for Visit Lt inguinal pain Chief Complaint CAUDA EQUINA SYNDROM E RX HERE XRAY LOSS OF BLADDER CONTROL FALL Chief Complaint FALL SCREEN LUMBAR RAD PT HAS RX Cough Chief Complaint SCREEN Cough LUMBAR RAD PT HAS RX RIGHT KNEE RM 1 Asthma Reason for Visit Osteoarthritis of ri ght knee Asthma Chief Complaint SCREEN Cough LUMBAR RAD PT HAS RX RIGHT KNEE RM 1 Asthma Unspecified asthma, uncomplicated Unspecified asthma, uncomplicated Unspecified asthma, uncomplicated Reason for Visit Osteoarthritis of ri ght knee Asthma Chief Complaint SCREEN Cough LUMBAR RAD PT HAS RX RIGHT KNEE RM 1 Asthma Unspecified asthma, uncomplicated Unspecified asthma, uncomplicated Unspecified asthma, uncomplicated Unspecified asthma, uncomplicated Reason for Visit Osteoarthritis of ri ght knee Asthma Chief Complaint LUMBAR RAD PT HAS RX RIGHT KNEE RM 1 Asthma Unspecified asthma, uncomplicated Unspecified asthma, uncomplicated Unspecified asthma, uncomplicated Unspecified asthma, uncomplicated 6 wk FU DIPLOPIA Reason for Visit Osteoarthritis of ri ght knee Asthma Cough Reason for Referral Specialty Diagnoses / Procedures Referred By Beverley brewster Referred To Contact Radiology Diagnoses Lumbar pain Procedures XR lumbar spine 2-3 views Maggie Augustine PA-C [address] [place] [address] Referral ID Status Reason Start Date Expiration Date Visits Requested Visits Authorized [id number] Authorized Perform Procedure 3 06/06/2024 1 1 Additional Source Comments <item> Privacy Markings (unrecogniz ed section and content) Section Author: Milena Ugarte PROHIBITION ON REDISCLOSURE OF CONFIDENTIAL INFORMATION This notice accompanies a disclosure of information concerning a client made to you with the consent of such client. INFORMATION SOURCE (unrecogn ized section and content) DATE CREATED AUTHOR 04/30/2021 [facility] DATE CREATED AUTHOR AUTHOR'S ORGANIZ ATION 04/20/2023 [employer] DATE CREATED AUTHOR AUTHOR'S ORGANIZ ATION 05/10/2023 [facility] [place] DATE CREATED AUTHOR AUTHOR'S ORGANIZ ATION 06/11/2023 [facility] DATE CREATED AUTHOR AUTHOR'S ORGANIZ ATION 01/09/2025 [facility] Care Teams (unrecognized sec tion and content) Team Status: Active Member Role Status Dates Dr. Mariana James DO Family Provider Active Dr. Glory Deal MD Primary Care Provider Active Team Status: Inactive Member Role Status Dates Dr. Glory Deal MD Primary Care Provider, Referrin g Provider Active Juan Manuel XIONG PA Attending Provider Active Team Status: Inactive Member Role Status Dates Dr. Glory Deal MD Primary Care Prov ider, Attending Provider, Referring Provider Active Team Status: Inactive Member Role Status Dates Dr. Glory Deal MD Primary Care Provider, Attendin g Provider Active Team Status: Inactive Member Role Status Dates Dr. Glory Deal MD Primary Care Provider Active Dr. Todd Meier DO Attending Provider, Emergency Provide r Active Team Status: Inactive Member Role Status Dates Dr. Glory Deal MD Primary Care Provider Active Dr. Khushbu Dick MD Attending Provider Active Team Status: Active Member Role Status Dates Dr. Glory Deal MD Primary Care Provider Active Juan Manuel XIONG PA Attending Provider Active Team Status: Inactive Member Role Status Dates Dr. Glory Deal MD Primary Care Provider Active Juan Manuel XIONG PA Attending Provider Active Team Status: Inactive Member Role Status Dates Dr. Glory Deal MD Primary Care Provider, Referrin g Provider Active Dr. Benja Toscano DO Attending Provider Active Team Status: Inactive Member Role Status Dates Dr. Glory Deal MD Primary Care Provider, Referrin g Provider Active Jania XIONG PA Attending Provider Active Team Status: Inactive Member Role Status Dates Dr. Glory Deal MD Primary Care Provider Active Dr. Sacha Post MD Attending Provider Active Team Status: Inactive Member Role Status Dates Dr. Glory Deal MD Primary Care Provider Active Jania XIONG PA Attending Provider, Referring Provi kami Active Team Status: Inactive Member Role Status Dates Dr. Glory Deal MD Primary Care Provider Active Dr. Darryl Nascimento MD Attending Provider Active Team Status: Inactive Member Role Status Dates Dr. Glory Deal MD Primary Care Provider Active Dr. 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 Glory Deal MD Primary Care Provider Active Dr. Jerel Dover DO Attending Provider, Emergency P edenilson Active Team Status: Active Member Role Status Dates Dr. Glory Deal MD Primary Care Provider Active LEVON JORGE Attending Provider, Referring Provider Active Team Status: Inactive Member Role Status Dates Dr. Glory Deal MD Primary Care Provider, Referrin g Provider Active Dr. Raad Garrett DO Attending Provider Active Team Status: Inactive Member Role Status Dates Dr. Glory Deal MD Primary Care Provider Active LEVON JORGE Attending Provider, Referring Provider Active Team Status: Inactive Member Role Status Dates Dr. Glory Deal MD Primary Care Provider Active Dr. Raad Garrett DO Attending Provider, Referring Pro vider Active Team Status: Active Member Role Status Dates Dr. Glory Deal MD Primary Care Provider Active Dr. Raad Garrett DO Attending Provider, Referring Provider, Other Provider Active Team Status: Active Member Role Status Dates Dr. Glory Deal MD Primary Care Provider Active Dr. Raad Garrett DO Attending Provider, Referring Pro vider Active Team Status: Inactive Member Role Status Dates Dr. Glory Deal MD Primary Care Provider, Referrin g Provider Active Brisa Pereira BOOTH USHER, BOOTH USHER-C Attending Provider Active Team Status: Inactive Member Role Status Dates Dr. Glory Deal MD Primary Care Provider Active Dr. Houston Wheeler MD Attending Provider, Referring P edenilson Active Reason for Visit (unrecogniz ed section and content) Reason Comments Follow-up FUV L1-2 LAMI + FUSI ON REVISION DOS 03/20/23 W FOR RECORDS PERTAINING TO PATIENTS WHO ARE [...] BE BASED ON THE PRIMARY CLINICAL RECORDS. [employer] provides no warranty or guarantee of the accuracy or completeness of information in this document.
--- NOTE | 2025-01-09 11:14 | RAD_ITS ---
PROCEDURE: KNEE 4 OR MORE VIEWS 01/09/2025 REASON FOR EXAM: Initial encounter TECHNIQUE: KNEE 4 OR MORE VIEWS COMPARISON: Knee radiographs of 07/19/23 FINDINGS: Bones: Tricompartmental periarticular osteophytes similar to previous. No fracture is appreciated. No change in the appearance of the medial tibial plateau compared to prior 2022 study. Joints: ACL tendon graft repair again noted. Effusion: Not appreciated Soft tissues: Unremarkable. Other: RAD/Knee 4 or More Views IMPRESSION: No acute process appreciated. Stable appearance of the knee compared to 2022 p rior Reading [facility]
--- NOTE | 2025-01-09 11:19 | ED.VIS.LOWEX ---
HPI History of Present Illness HPI Narrative: 69-year-old female prior right knee ACL and cartilage surgery years ago. Was walking [place] yesterday. Slipped fell landing on her right knee is complaining of pain. No head injury. No LOC. Denies other complaints. She can walk on it it is uncomfortable. Chief Complaint: Lower Extremity Injury Informant: patient Occured/Mechanism Mechanism/Context: Yes blunt trauma Onset/Context/Timing Onset: Yesterday Context: Sudden Onset Timing: Continuous Quality of Pain: Sharp Current Severity: Moderate Maximum Severity: Moderate Associated Symptoms Associated Symptoms: Negative for Parasthesia, Weakness or Loss of Funtion Narrative Narrative: 69-year-old female prior knee surgery slipped and fell yesterday walking [place] landing awkwardly on her right knee on cement. Complaining of pain. No other injuries. No head injury or LOC. No blood thinners. Prior similar symptoms: No Recent Illness/Hospitalization: No PFSH PFSH Medical History Wears glasses Post-menopausal Anxiety History of steroid therapy Restless legs Migraine headache Injury of head and neck Difficulty swallowing History of IBS Gastric reflux Non-smoker Shortness of breath on exertion Leg cramps Hypertension Positive colorectal cancer screening using Cologuard test Bilateral shoulder pain Aftercare following right elbow joint replacement surgery Dizziness Fall Depression Contusion of hand Contusion of right shoulder region Concussion Melanoma GERD (gastroesophageal reflux disease) Osteopenia IBS (irritable bowel syndrome) Hypoglycemia Low calcium levels Anxiety and depression child Difficulty balancing Incontinence Back pain Asthma Knee pain Hay fever Arthritis Home Medications ?Medication ?Instructions ?Recorded ?Last Taken ?Type lansoprazole 30 mg capsule,delayed 30 mg PO DAILY Gerd 02/06/14 01/09/25 History release garlic 1 tab PO DAILY 07/31/17 01/09/25 History amlodipine 10 mg tablet 10 mg PO DAILY #30 tabs 05/17/21 01/09/25 Rx Lactobacillus acidophilus 1 tab PO DAILY 07/30/23 01/09/25 History (Acidophilus chewable tablet) ashwagandha extract 120 mg capsule 120 mg PO DAILY 07/30/23 01/09/25 History cinnamon bark 500 mg capsule 500 mg PO DAILY 07/30/23 01/09/25 History (Cinnamon) cyclobenzaprine 10 mg tablet See Rx Instructions PO .COMPLEX 07/30/23 Unknown History melatonin 5 mg capsule 5 mg PO QHS 07/30/23 01/08/25 History multivitamin (One Daily 1 tab PO DAILY 07/30/23 01/09/25 History Multivitamin tablet) tmxdlsswyykc-sakqwddz-ovhshm 1 tab PO DAILY 07/30/23 01/09/25 History tablet (Vision Plus Lutein tablet) omega 2-syo-kga-fish oil 1,200 mg 1 cap PO DAILY 07/30/23 01/09/25 History (144 mg-216 mg) capsule (Fish Oil) pramipexole 0.125 mg tablet 0.125 mg PO BID 07/30/23 01/09/25 History quercetin 500 mg capsule 500 mg PO DAILY 07/30/23 01/09/25 History sumatriptan succinate 100 mg tablet 100 mg PO .COMPLEX 07/30/23 Unknown History trazodone 50 mg tablet 50 mg PO QHS 07/30/23 01/08/25 History venlafaxine 75 mg tablet 75 mg PO BID Depression 07/30/23 01/09/25 History vitamin B complex 1 tab PO DAILY 07/30/23 01/09/25 History acetaminophen 500 mg tablet 500 mg PO Q6H PRN pain 03/11/24 Unknown History (Tylenol Extra Strength) docusate sodium 50 mg capsule 100 mg PO DAILY stool softner 03/11/24 01/09/25 History (Stool Softener) turmeric 400 mg capsule 400 mg PO DAILY 07/10/24 01/09/25 History apple cider vinegar 600 mg capsule 600 mg PO DAILY 08/05/24 01/09/25 History calcium carbonate (Kayla-Brielle 300 mg PO DAILY 08/05/24 01/09/25 History Heartburn Chew) inulin-sorbitol 2 gram chewable 1 tab PO DAILY 08/05/24 01/09/25 History tablet (Fiber Supplement (inulin)) ascorbic acid (vitamin C) 500 mg 500 mg PO DAILY 01/09/25 01/09/25 History tablet (C-500) cetirizine 10 mg tablet (24Hour 10 mg PO DAILY PRN allergy symptoms 01/09/25 01/09/25 History Allergy) clobetasol 0.05 % topical cream 1 applic topical DAILY PRN skin 01/09/25 Unknown History irritation cranberry fruit 450 mg tablet 450 mg PO DAILY 01/09/25 Unknown History (cranberry) magnesium 250 mg tablet 250 mg PO TID 01/09/25 01/09/25 History Allergy/AdvReac Type Severity Reaction Status Date / Time chocolate flavor Allergy Severe Unknown Verified 01/09/25 10:17 tree nut (tree nuts) Allergy Severe OTHER Verified 01/09/25 10:17 house dust Allergy Intermediate Other Verified 01/09/25 10:17 tree and shrub pollen Allergy Intermediate Other Verified 01/09/25 10:17 cosmetic Allergy NEEDS Verified 01/09/25 10:17 FOLLOW-UP fexofenadine (From [facility]) Allergy Unknown Verified 01/09/25 10:17 pineapple Allergy Unknown Verified 01/09/25 10:17 adhesive tape AdvReac unknown Verified 01/09/25 10:17 amoxicillin (Amoxicillin) AdvReac Other Verified 01/09/25 10:17 atropine (From ) AdvReac trouble Verified 01/09/25 10:17 breathing avocado AdvReac UNKNOWN Verified 01/09/25 10:17 bupropion HCl (From AdvReac Other Verified 01/09/25 10:17 Wellbutrin) egg AdvReac Other Verified 01/09/25 10:17 erythromycin base AdvReac Diarrhea Verified 01/09/25 10:17 hyoscyamine (From ) AdvReac trouble Verified 01/09/25 10:17 breathing morphine AdvReac Itching Verified 01/09/25 10:17 phenobarbital (From ) AdvReac trouble Verified 01/09/25 10:17 breathing scopolamine (From ) AdvReac trouble Verified 01/09/25 10:17 breathing Family History Father Cancer skin cancer; basal cell Other Asthma Colon cancer Surgical History Hx of colonoscopy S/P laminectomy with spinal fusion History of laminectomy H/O left breast biopsy S/P breast lumpectomy Hx of knee surgery Social History household members: none current occupational status: retired and disabled Smoking Status: Never smoker alcohol intake: never substance use type: does not use what type of physical activity do you participate in: walking and bicycling frequency: 1-2 times per week seatbelt use: always do you feel safe at home: Yes additional social history: single ROS ROS ED ROS Narrative Denies recent illness. Constitutional Constitutional ED: Denies chills or fever(s) Eyes Eyes: Denies blurry vision ENT ENT ED: Denies ear pain Cardiovascular Cardiovascular: Denies chest pain Respiratory/Chest Respiratory/Chest: Denies cough Gastrointestinal Gastrointestinal: Denies abdominal pain Musculoskeletal Musculoskeletal: Denies arthralgias, back pain or neck pain Integumentary Denies abscess or Abrasions Neurologic Neurologic: Denies headache(s) Psychiatric Psychiatric: Denies anxiety Endocrine Endocrinology: Denies polydipsia Hematologic/Lymphatic Hematologic/Lymphatic: Denies easy bleeding or easy bruising Allergic/Immunologic Allergic/Immunologic ED: Denies mouth swelling, tongue swelling or urticaria EXAM Physical Exam Narrative Exam Narrative: 69-year-old female sitting upright in bed. Vital signs are stable afebrile. No acute distress. H EENT exam pupils round reactive light. No signs of trauma to her face or scalp. Nontender. C-spine and neck nontender. Back and spine nontender. No trauma. Lungs clear to auscultation. Heart regular rhythm rate about 80 no murmur. Chest wall ribs nontender. Abdomen soft nontender. Pelvic girdle intact. Moving all 4 extremities. Full range of motion. No edema. Right knee she has a small abrasion on the inferior aspect of the knee by the proximal tibia. She has full flexion extension of the right knee. No effusion. ACL and PCL are intact. She has some mild medial tenderness to palpation. She has a well-healed midline surgical scar over the right knee. Quadriceps patellar tendon is intact. She can extend to 180 degrees. She has normal flexion. Right lower leg nontender. Normal dorsi plantarflexion. Normal DP pulse. Normal sensation. Neurologically she is awake alert. Answering questions following commands. GCS 15. Const Vital Signs: 01/09/25 10:18 Temperature 98 F Temperature Source Temporal Pulse Rate 82 Respiratory Rate 14 Blood Pressure 135/67 H Blood Pressure Mean 89 Pulse Ox 98 Oxygen Delivery Method Room Air Positive well developed; Negative for cachectic, contractures or unkempt General Appearance ED: well developed and NAD; Negative for unkempt, cachectic or contractures Nutritional Appearance: Negative for cachectic HEENT Reports moist mucous membranes normocephalic and atraumatic Eyes PERRL Neck full ROM and supple Thyroid: Negative for tender Chest Wall inspection of chest normal and palpation of chest normal Resp normal respiratory effort, no retractions and clear to auscultation bilaterally Cardio regular rate, regular rhythm, S1 normal heart sound, S2 normal heart sound and no murmurs GI non-tender, non-distended and no masses Inspection: Negative for abdominal distention Palpation: Negative for tender, guarding or rebound tenderness present Back/Spine no CVA tenderness Extremity normal to inspection and full ROM Extremity Narrative: Tenderness right knee medially and over the proximal tibia. No effusion. Well-healed midline incision scar. Full flexion extension. No effusion. ACL PCL are intact. MCL and LCL appear to be intact. Quadriceps patellar tendons intact. Neuro oriented x3, CN's II-XII intact bilaterally, moves all extremities and no sensory deficits noted Sensorium / Orientation: alert, oriented to person, oriented to place and oriented to time; Negative for orientation impaired Motor Exam: strength 5/5 throughout Psych mental status grossly normal Appearance: Negative for unkempt Skin No no wounds Skin Narrative: Minor abrasion right lower knee. Lesions: no lesions Rashes: no rashes Trauma: abrasion; Negative for laceration MDM MDM MDM Narrative Medical decision making narrative: 69-year-old injured her knee after she fell yesterday walking [place]. X-ray was obtained to rule out fracture. There is no signs of an ACL or PCL tear. No effusion. Good range of motion. She did not want a thing for pain. Discharge Plan Triage Chief Complaint: Lower Extremity Injury ED Provider: Herb Jennings Dx/Rx/DC Orders Prescriptions: No Action garlic tablet 1 tab PO DAILY Stool Softener 50 mg capsule 100 mg PO DAILY multivitamin [One Daily Multivitamin] Tablet 1 tab PO DAILY cyclobenzaprine 10 mg tablet See Rx Instructions PO .COMPLEX Rx Instructions: 1/2 - 1 tab TID PRN orally; trazodone 50 mg tablet 50 mg PO QHS Patient Comments: TAKE 1 TABLET BY MOUTH AT BEDTIME sumatriptan succinate 100 mg tablet 100 mg PO .COMPLEX Patient Comments: PT TAKES NEEDED Rx Instructions: 100 mg orally 1 tablet as needed for migraine may repeat dose 2 hours if migraine persistent pramipexole 0.125 mg tablet 0.125 mg PO BID vitamin B complex Tablet 1 tab PO DAILY Vision Plus Lutein Tablet 1 tab PO DAILY Acidophilus Tablet,Chewable 1 tab PO DAILY cinnamon bark [Cinnamon] 500 mg capsule 500 mg PO DAILY omega 0-fay-qyk-fish oil [Fish Oil] 1,200 (144-216) mg capsule 1 cap PO DAILY quercetin 500 mg capsule 500 mg PO DAILY ashwagandha extract 120 mg capsule 120 mg PO DAILY acetaminophen [Tylenol Extra Strength] 500 mg tablet 500 mg PO Q6H PRN (Reason: pain) turmeric 400 mg capsule 400 mg PO DAILY lansoprazole 30 MG capsule 30 mg PO DAILY venlafaxine 75 mg tablet 75 mg PO BID melatonin 5 mg capsule 5 mg PO QHS amlodipine 10 mg Tablet 10 mg PO DAILY Qty: 30 0RF Kayla-Brielle Heartburn Chew 300 mg (750 mg) tablet,chewable 300 mg PO DAILY Fiber Supplement (inulin) 2 gram tablet,chewable 1 tab PO DAILY apple cider vinegar 600 mg capsule 600 mg PO DAILY ascorbic acid (vitamin C) [C-500] 500 mg tablet 500 mg PO DAILY clobetasol 0.05 % cream 1 applic topical DAILY PRN (Reason: skin irritation) cetirizine [24Hour Allergy] 10 mg tablet 10 mg PO DAILY PRN (Reason: allergy symptoms) cranberry 450 mg tablet 450 mg PO DAILY Rx Instructions: administer with a meal magnesium 250 mg tablet 250 mg PO TID Primary Care Provider: Glory Deal Referrals: Glory Deal MD [Primary Care Provider] - Print Language: [place]ib[place]ian
[2025-01-09 12:00] VITALS: BP 135/77; PULSE 71; RESP 19; TEMP 36.6; O2SAT 99
== END 2025-01-09 12:01 | disposition home or self-care (01) ==
PROVIDERS: Emergency Provider Emergency Medicine; PCP Family Medicine; Visit Provider Emergency Medicine
DX: S80.211A Abrasion, right knee, initial encounter (principal); W01.0XXA Fall on same level from slipping, tripping and stumbling without subsequent striking against object, initial encounter; Y93.01 Activity, walking, marching and hiking; Y92.89 Other specified places as the place of occurrence of the external cause; I10 Essential (primary) hypertension; Z79.899 Other long term (current) drug therapy
CPT/HCPCS: 73564; 99282

== ENCOUNTER → 2025-02-17 | Outpatient (CLI) | payer MEDICARE, MEDICAID, SELFPAY ==
--- NOTE | 2025-02-17 10:08 | RAD_ITS ---
PROCEDURE: THORACIC SPINE 2 VIEWS 02/17/2025 REASON FOR EXAM: THORACIC PAIN / RECENT FALL TECHNIQUE: THORACIC SPINE 2 VIEWS COMPARISON: None. FINDINGS: No evidence of acute fracture or dislocation. Vertebral body heights are maintained. Partially visualized lumbar fixation. Mild discogenic degenerative changes of the visualized spine. RAD/Thoracic Spine 2 Views IMPRESSION: Mild spondylosis. No evidence of acute fracture. Reading Location: [id number]
--- NOTE | 2025-02-17 10:09 | RAD_ITS ---
PROCEDURE: L/S SPINE MIN 4 VIEWS 02/17/2025 REASON FOR EXAM: LUMBAR DDD/ RECENT FALL TECHNIQUE: L/S SPINE MIN 4 VIEWS COMPARISON: None. FINDINGS: BONES: No acute fracture or focal osseous lesion. Minimal grade 1 retrolisthesis of L5 relative to L4 and S1. No spinal instability with flexion or extension. Prior spinal instrumentation and laminectomies with posterior fusion hardware spanning from L1 to L5. No evidence of hardware failure or loosening. DISCS / DEGENERATIVE CHANGES: Disc space narrowing and vertebral endplate osteophytes throughout. SOFT TISSUES: The soft tissues are unremarkable. RAD/L/S Spine Min 4 Views IMPRESSION: 1. Postoperative changes without signs of complication. 2. Spondylosis and degenerative disc disease. 3. No evidence of spinal instability. Reading Location: [id number]
== END | disposition home or self-care (01) ==
LOC: MTRAD 10:06
PROVIDERS: PCP Family Medicine; Referring Provider Clinical Nurse Specialist Adult Health; Visit Provider Clinical Nurse Specialist Adult Health
DX: M54.6 Pain in thoracic spine (principal); M51.369 Other intervertebral disc degeneration, lumbar region without mention of lumbar back pain or lower extremity pain
CPT/HCPCS: 72070; 72110

== ENCOUNTER → 2025-03-02 | Outpatient (CLI) | payer MEDICARE, MEDICAID, SELFPAY | END | disposition home or self-care (01) | LOC: LABSPEC 14:13 | PROVIDERS: PCP Family Medicine; Visit Provider Nurse Practitioner Family | DX: N39.0 Urinary tract infection, site not specified (principal) | CPT/HCPCS: 87077; 87086; 87088; 87186 ==

== ENCOUNTER → 2025-04-22 | Outpatient (CLI) | payer MEDICARE, MEDICAID, SELFPAY ==
--- NOTE | 2025-04-22 10:55 | MRI_ITS ---
PROCEDURE: LOWER EXT JOINT ONLY (ROUTINE) 04/22/2025 REASON FOR EXAM: CONTINUED KNEE PAIN, INSTABILITY Medial right knee pain. Prior anterior cruciate ligament repair. Stiffness. TECHNIQUE: Procedure Code: [id number] Modality: MR Procedure: MRI of the right knee without contrast. Multiplanar and multisequence images were obtained without IV contrast administration. COMPARISON: COMPARISON : Right knee series of 01/09/2025. FINDINGS: No significant joint effusion is seen. A moderate-sized Yepez's cyst is noted. Prior anterior cruciate ligament reconstruction is seen, but no intact anterior cruciate reconstructed ligament is seen. Furthermore, partial degeneration of the posterior cruciate ligament is seen. Collateral ligaments appear intact. Visualized portions of the extensor tendons appear intact. Again seen are tricompartmental degenerative changes, with moderate articular cartilage thinning in the lateral facet of the patella, moderate to moderately severe articular cartilage thinning in the medial compartment, and moderate to severe articular cartilage thinning in the lateral compartment, particularly with denuded cartilage from a large portion of the lateral tibial plateau noted. Extensive maceration of the body and posterior horn of the medial meniscus. Nearly as extensive maceration of the body and posterior horn of the lateral meniscus also noted. MRI/Lower Ext Joint Only (Routine) IMPRESSION: 1. Prominent tricompartmental degenerative changes, as described, with extensiv e areas of cartilage thinning, as noted. 2. Prominent maceration of both medial and lateral menisci. 3. Moderate-sized Yepez's cyst. 4. Prior anterior cruciate ligament reconstruction, but no intact reconstructed ligament is now seen. 5. Partial degeneration of the posterior cruciate ligament. Reading Location: [id number]
== END | disposition home or self-care (01) ==
LOC: OPMRI 10:15
PROVIDERS: PCP Family Medicine; Referring Provider Nurse Practitioner Family; Visit Provider Nurse Practitioner Family
DX: M25.361 Other instability, right knee (principal)
CPT/HCPCS: 73721

== ENCOUNTER 2025-05-05 11:04 | Emergency (ER) | payer MEDICARE, MEDICAID, SELFPAY ==
[2025-05-05 11:06] VITALS: BP 157/122; PULSE 76; RESP 16; TEMP 36.9; O2SAT 99; BMI 59.8
--- NOTE | 2025-05-05 11:14 | ED.VIS.BACK ---
HPI History of Present Illness Chief Complaint: Back Informant: patient Onset/Context/Timing Onset: Month(s) (4) Injury: fall Timing: Continuous Quality: Sharp and Aching Location: Lumbar and Buttock Worsened by: improves with Movement Relieved by: Remaining Still Associated Symptoms Associated Symptoms: Abdominal Pain; Negative for Numbness, Tingling, Radiation to Right Leg, Radiation to Left Leg, Fever, Dysuria, Unable to Ambulate, Unable to Transfer, Urinary Retention, Urinary Incontinence, Constipation or Fecal Incontinence Narrative Narrative: Patient presents with back pain that has been constant after the past 4 months. Patient states it has gradually gotten worse. Patient states she fell at that time. Patient states her pain is worse over the right lower lumbar area. Patient describes it as sharp, aching, and stabbing. Patient states it is worse with movement. Patient states it is better with laying flat. Patient states her pain radiates into her lower abdomen. Patient denies any radiation of pain to her lower extremity. Patient denies any bowel or bladder changes. Patient denies any saddle anesthesia. [facility] Medical History Wears glasses Post-menopausal Anxiety History of steroid therapy Restless legs Migraine headache Injury of head and neck Difficulty swallowing History of IBS Gastric reflux Non-smoker Shortness of breath on exertion Leg cramps Hypertension Positive colorectal cancer screening using Cologuard test Bilateral shoulder pain Aftercare following right elbow joint replacement surgery Dizziness Fall Depression Contusion of hand Contusion of right shoulder region Concussion Melanoma GERD (gastroesophageal reflux disease) Osteopenia IBS (irritable bowel syndrome) Hypoglycemia Low calcium levels Anxiety and depression child Difficulty balancing Incontinence Back pain Asthma Knee pain Hay fever Arthritis Home Medications ?Medication ?Instructions ?Recorded ?Last Taken ?Type lansoprazole 30 mg capsule,delayed 30 mg PO DAILY Gerd 02/06/14 01/09/25 History release garlic 1 tab PO DAILY 07/31/17 01/09/25 History amlodipine 10 mg tablet 10 mg PO DAILY #30 tabs 05/17/21 01/09/25 Rx Lactobacillus acidophilus 1 tab PO DAILY 07/30/23 01/09/25 History (Acidophilus chewable tablet) ashwagandha extract 120 mg capsule 120 mg PO DAILY 07/30/23 01/09/25 History cinnamon bark 500 mg capsule 500 mg PO DAILY 07/30/23 01/09/25 History (Cinnamon) cyclobenzaprine 10 mg tablet See Rx Instructions PO .COMPLEX 07/30/23 Unknown History melatonin 5 mg capsule 5 mg PO QHS 07/30/23 01/08/25 History multivitamin (One Daily 1 tab PO DAILY 07/30/23 01/09/25 History Multivitamin tablet) [id number]-[id number]-mvjyan 1 tab PO DAILY 07/30/23 01/09/25 History tablet (Vision Plus Lutein tablet) omega 8-wqq-bep-fish oil 1,200 mg 1 cap PO DAILY 07/30/23 01/09/25 History (144 mg-216 mg) capsule (Fish Oil) pramipexole 0.125 mg tablet 0.125 mg PO BID 07/30/23 01/09/25 History quercetin 500 mg capsule 500 mg PO DAILY 07/30/23 01/09/25 History sumatriptan succinate 100 mg tablet 100 mg PO .COMPLEX 07/30/23 Unknown History trazodone 50 mg tablet 50 mg PO QHS 07/30/23 01/08/25 History venlafaxine 75 mg tablet 75 mg PO BID Depression 07/30/23 01/09/25 History vitamin B complex 1 tab PO DAILY 07/30/23 01/09/25 History acetaminophen 500 mg tablet 500 mg PO Q6H PRN pain 03/11/24 Unknown History (Tylenol Extra Strength) docusate sodium 50 mg capsule 100 mg PO DAILY stool softner 03/11/24 01/09/25 History (Stool Softener) turmeric 400 mg capsule 400 mg PO DAILY 07/10/24 01/09/25 History apple cider vinegar 600 mg capsule 600 mg PO DAILY 08/05/24 01/09/25 History calcium carbonate (Kayal-Leiter 300 mg PO DAILY 08/05/24 01/09/25 History Heartburn Chew) inulin-sorbitol 2 gram chewable 1 tab PO DAILY 08/05/24 01/09/25 History tablet (Fiber Supplement (inulin)) ascorbic acid (vitamin C) 500 mg 500 mg PO DAILY 01/09/25 01/09/25 History tablet (C-500) cetirizine 10 mg tablet (24Hour 10 mg PO DAILY PRN allergy symptoms 01/09/25 01/09/25 History Allergy) clobetasol 0.05 % topical cream 1 applic topical DAILY PRN skin 01/09/25 Unknown History irritation cranberry fruit 450 mg tablet 450 mg PO DAILY 01/09/25 Unknown History (cranberry) magnesium 250 mg tablet 250 mg PO TID 01/09/25 01/09/25 History meloxicam 15 mg tablet 15 mg PO QDAY #30 tabs 03/16/25 Unknown Rx tramadol 50 mg tablet 25 - 50 mg PO TID PRN pain 04/26/25 Unknown History Allergy/AdvReac Type Severity Reaction Status Date / Time chocolate flavor Allergy Severe Unknown Verified 05/05/25 11:09 tree nut (tree nuts) Allergy Severe OTHER Verified 05/05/25 11:09 house dust Allergy Intermediate Other Verified 05/05/25 11:09 tree and shrub pollen Allergy Intermediate Other Verified 05/05/25 11:09 cosmetic Allergy NEEDS Verified 05/05/25 11:09 FOLLOW-UP fexofenadine (From [place]) Allergy Unknown Verified 05/05/25 11:09 pineapple Allergy Unknown Verified 05/05/25 11:09 adhesive tape AdvReac unknown Verified 05/05/25 11:09 amoxicillin (Amoxicillin) AdvReac Other Verified 05/05/25 11:09 atropine (From ) AdvReac trouble Verified 05/05/25 11:09 breathing avocado AdvReac UNKNOWN Verified 05/05/25 11:09 bupropion HCl (From AdvReac Other Verified 05/05/25 11:09 Wellbutrin) egg AdvReac Other Verified 05/05/25 11:09 erythromycin base AdvReac Diarrhea Verified 05/05/25 11:09 hyoscyamine (From ) AdvReac trouble Verified 05/05/25 11:09 breathing morphine AdvReac Itching Verified 05/05/25 11:09 phenobarbital (From ) AdvReac trouble Verified 05/05/25 11:09 breathing scopolamine (From ) AdvReac trouble Verified 05/05/25 11:09 breathing Family History Father Cancer skin cancer; basal cell Other Asthma Colon cancer Surgical History Hx of colonoscopy S/P laminectomy with spinal fusion History of laminectomy H/O left breast biopsy S/P breast lumpectomy Hx of knee surgery Social History household members: none current occupational status: retired and disabled Smoking Status: Never smoker alcohol intake: never substance use type: does not use what type of physical activity do you participate in: walking and bicycling frequency: 1-2 times per week seatbelt use: always do you feel safe at home: Yes additional social history: single ROS ROS ED Constitutional Constitutional ED: Denies chills or fever(s) Eyes Eyes: Denies blurry vision or change in vision ENT ENT ED: Denies rhinorrhea or sore throat Cardiovascular Cardiovascular: Denies chest pain or palpitations Respiratory/Chest Respiratory/Chest: Denies cough or dyspnea Gastrointestinal Gastrointestinal: Reports abdominal pain and nausea; Denies vomiting Genitourinary Genitourinary ED: Denies dysuria or hematuria Musculoskeletal Musculoskeletal: Reports back pain; Denies neck pain Integumentary Denies abscess or rash Neurologic Neurologic: Denies headache(s) or weakness Allergic/Immunologic Allergic/Immunologic ED: Denies mouth swelling or urticaria EXAM Physical Exam Const Vital Signs: 05/05/25 11:06 05/05/25 13:05 Temperature 98.4 F Temperature Source Oral Pulse Rate 76 74 Respiratory Rate 16 16 Blood Pressure 157/122 H 147/83 H Blood Pressure Mean 133 104 Pulse Ox 99 98 Oxygen Delivery Method Room Air Room Air Positive well nourished and well developed General Appearance ED: well developed and NAD HEENT Reports moist mucous membranes Neck supple and no JVD Resp normal respiratory effort and clear to auscultation bilaterally Cardio regular rate and regular rhythm GI soft to palpation and non-distended Palpation: tender RLQ; Negative for guarding or rebound tenderness present Back/Spine Back/Spine Narrative: There is mild tenderness and spasm of the right lumbar paraspinal muscles. There is mild midline tenderness. Range of motion was limited in all motions of the lumbar spine secondary to pain. There is no bony crepitance or step-off noted. Strength is 5/5 bilaterally in the lower extremities. There are no sensory deficits noted. Deep tendon reflexes are 2/4 bilaterally. Lumbar Spine / Lower Back: ROM limited and straight leg raise negative bilaterally Extremity normal to inspection General Extremety ED: Negative for edema or tenderness General Extremity: Negative for edema Neuro oriented x3 and no sensory deficits noted Sensorium / Orientation: alert Motor Exam: strength 5/5 throughout Deep Tendon Reflexes: Rt Patellar (L4): 2+, Lt Patellar (L4): 2+, Rt Ankle (S1): 2+ and Lt Ankle (S1): 2+ Deep Tendon Reflexes Back: Rt Patellar (L4): 2+, Lt Patellar (L4): 2+, Rt Ankle (S1): 2+ and Lt Ankle (S1): 2+ Psych mental status grossly normal MDM MDM MDM Narrative Medical decision making narrative: Differential diagnosis includes lumbosacral strain, compression fracture, ureteral calculus, appendicitis, pyelonephritis, and urinary tract infection. CT scan of the abdomen and pelvis will be obtained to assess for ureteral calculus and lumbar compression fracture. CBC will be obtained to assess for leukocytosis and anemia. Basic metabolic profile will be obtained to assess for electrolyte abnormality and renal function. Urinalysis will be obtained to assess for urinary tract infection and hematuria. Lab Data Attestation: I reviewed the patient's lab results. Lab results narrative: CBC was reviewed and was within normal limits. Basic metabolic profile was reviewed and was within normal limits. Urinalysis was reviewed. There is no evidence of urinary tract infection or hematuria. Labs: Laboratory Results - last 24 hr 05/05/25 12:05 WBC 7.4 RBC 4.45 Hgb 14.5 Hct 44.3 MCV 99.6 H MCH 32.6 H MCHC 32.7 RDW Std Deviation 47.9 H RDW Coeff of [place] 13.1 Plt Count 226 MPV 10.4 Immature Gran % (Auto) 0.400 Neut % (Auto) 65.9 Lymph % (Auto) 24.5 [place] % (Auto) 6.6 Eos % (Auto) 2.2 Baso % (Auto) 0.4 Absolute Neuts (auto) 4.9 Absolute Lymphs (auto) 1.82 Nucleated RBC % 0 Sodium 141 Potassium 3.7 Chloride 106 Carbon Dioxide 25.1 Anion Gap 11 BUN 12 Creatinine 0.68 L Estim Creat Clear Calc 91.05 Est GFR (MDRD) Non-Af 93 BUN/Creatinine Ratio 17.4 Glucose 97 Calcium 9.6 Urine Color Yellow Urine Clarity Clear Urine pH 8.0 Ur Specific [place] 1.015 Urine Protein Negative Urine Glucose (UA) Normal Urine Ketones Negative Urine Occult Blood Negative Urine Nitrite Negative Urine Bilirubin Negative Urine Urobilinogen Normal Ur Leukocyte Esterase Negative Urine RBC 0 SEEN Urine WBC 0 SEEN Ur Squamous Epith Cells 0 SEEN Urine Bacteria 0 SEEN Urine Mucus 0 SEEN Radiography Diagnostic Testing: Clinical Impression(s) from Imaging Studies Abdomen/Pelvis CT 05/05/25 11:46 IMPRESSION: Gallstones. Right renal cysts have increased slightly in size as compared to prior study. Reading Location: [id number] scan of the abdomen and pelvis was obtained. There are not gallstones noted. There are right renal cysts which have increased slightly compared to previous CT scan. There is fusion of the lumbar spine. There is no acute process noted. This was interpreted by the radiologist and was also independently reviewed by myself. Treatment and Re-Evaluation Narrative: Patient was given IV fluids and Zofran. Patient was given a dose of oxycodone. Patient declined the oxycodone. Patient states it has not helped in the past. I discussed the findings with the patient. Patient was instructed to continue her medications as previously prescribed. We discussed analgesic options. Patient states that oxycodone, hydrocodone, and tramadol have not worked for her in the past. Patient was instructed to use ice to her lower back. Patient was instructed to return if worse in any way. Patient understood and was agreeable with the plan. All questions were answered. Discharge Plan Triage Chief Complaint: Back ED Provider: [place] Dx/Rx/DC Orders Clinical Impression: Back pain, Lumbar paraspinal muscle spasm, History of lumbar spinal fusion Instructions: ED Back Sprain/Strain Prescriptions: No Action garlic tablet 1 tab PO DAILY Stool Softener 50 mg capsule 100 mg PO DAILY multivitamin [One Daily Multivitamin] Tablet 1 tab PO DAILY cyclobenzaprine 10 mg tablet See Rx Instructions PO .COMPLEX Rx Instructions: 1/2 - 1 tab TID PRN orally; trazodone 50 mg tablet 50 mg PO QHS Patient Comments: TAKE 1 TABLET BY MOUTH AT BEDTIME sumatriptan succinate 100 mg tablet 100 mg PO .COMPLEX Patient Comments: PT TAKES NEEDED Rx Instructions: 100 mg orally 1 tablet as needed for migraine may repeat dose 2 hours if migraine persistent pramipexole 0.125 mg tablet 0.125 mg PO BID vitamin B complex Tablet 1 tab PO DAILY Vision Plus Lutein Tablet 1 tab PO DAILY Acidophilus Tablet,Chewable 1 tab PO DAILY cinnamon bark [Cinnamon] 500 mg capsule 500 mg PO DAILY omega 1-cmo-nho-fish oil [Fish Oil] 1,200 (144-216) mg capsule 1 cap PO DAILY quercetin 500 mg capsule 500 mg PO DAILY ashwagandha extract 120 mg capsule 120 mg PO DAILY acetaminophen [Tylenol Extra Strength] 500 mg tablet 500 mg PO Q6H PRN (Reason: pain) turmeric 400 mg capsule 400 mg PO DAILY meloxicam 15 mg tablet 15 mg PO QDAY Qty: 30 1RF tramadol 50 mg tablet 25 - 50 mg PO TID PRN (Reason: pain) lansoprazole 30 MG capsule 30 mg PO DAILY venlafaxine 75 mg tablet 75 mg PO BID melatonin 5 mg capsule 5 mg PO QHS amlodipine 10 mg Tablet 10 mg PO DAILY Qty: 30 0RF Kayla-Leiter Heartburn Chew 300 mg (750 mg) tablet,chewable 300 mg PO DAILY Fiber Supplement (inulin) 2 gram tablet,chewable 1 tab PO DAILY apple cider vinegar 600 mg capsule 600 mg PO DAILY ascorbic acid (vitamin C) [C-500] 500 mg tablet 500 mg PO DAILY clobetasol 0.05 % cream 1 applic topical DAILY PRN (Reason: skin irritation) cetirizine [24Hour Allergy] 10 mg tablet 10 mg PO DAILY PRN (Reason: allergy symptoms) cranberry 450 mg tablet 450 mg PO DAILY Rx Instructions: administer with a meal magnesium 250 mg tablet 250 mg PO TID Primary Care Provider: Glory Deal Referrals: Glory Deal MD [Primary Care Provider, Family Practice] - 5-7 Days Print Language: Palauan Disposition Disposition: Home, Self Care
--- NOTE | 2025-05-05 11:46 | CT_ITS ---
PROCEDURE: ABDOMEN/PELVIS WITHOUT CONT 05/05/2025 REASON FOR EXAM: BACK PAIN, RIGHT LOWER QUADRANT ABDOMINAL PAIN TECHNIQUE: Procedure Code: [id number] Modality: CT Procedure: ABDOMEN/PELVIS WITHOUT CONT Noncontrast technique limits evaluation of the abdominal and pelvic viscera. Coronal and Sagittal reconstruction series were provided. One or more dose reduction techniques were used (e.g., Automated exposure control, adjustment of the mA and/or kV according to patient size, use of iterative reconstruction technique). RADIATION DOSE SUMMARY: CTDlvol: 9.04 mGy DLP: 453.96 mGycm COMPARISON: Prior study dated March 28, 2023. FINDINGS: Lung bases: Findings suggestive of linear atelectasis and/or linear scarring in the anterior aspect of the right lower lobe. Liver: Normal size. No obvious mass. Gallbladder: Multiple gallstones. Spleen: Normal size. Pancreas: Normal size. No surrounding inflammation. Adrenals: Unremarkable Kidneys: There is a 3.8 cm cyst in the upper pole of the right kidney. Left kidney is unremarkable. 1.6 cm cyst in the lower pole of the right kidney. These have increased in size as compared to prior study. Bladder: Unremarkable Reproductive Organs: Normal uterine size and contour. Ovaries are unremarkable. Bowel: Colonic diverticulosis without diverticulitis. Appendix: The appendix is not identified. There is no inflammatory process identified in the right lower quadrant to suggest appendicitis. Lymph nodes: No suspicious lymph node enlargement. Vasculature: Mild diffuse atherosclerotic calcifications are noted. Peritoneum / Retroperitoneum: Unremarkable Bones: Degenerative changes of the spine. Prior laminectomy and intrapedicular screw fixation at the L1-L2, L2-L3, L3-L4 and L4-L5 levels. CT/Abdomen/Pelvis without Cont IMPRESSION: Gallstones. Right renal cysts have increased slightly in size as compared to prior study. Reading Location: [facility]
[2025-05-05 12:13] LABS: Hematocrit 44.3 % (37-47); Hemoglobin 14.5 g/dL (12.0-15.0); Immature Granulocytes Count 0.030 X10^3/uL (0.0-0.0); Mean Corp Hgb Conc 32.7 g/dL (32-36); Mean Corpuscular Volume 99.6 fL (81-99); Mean Platelet Vol. 10.4 fl (6.2-12.0); NRBC Flagged by Analyzer 0 % (0-5); Platelet Count 226 K/mm3 (150-450); RBC Distribution Width CV 13.1 % (11.6-14.6); RBC Distribution Width SD 47.9 fl (35.1-43.9); Red Blood Count 4.45 M/mm3 (4.2-5.4); White Blood Count 7.4 K/mm3 (4.4-11.0)
[2025-05-05] MEDS: 0.9% Normal Saline (1000mL) 1,000 ML 1000 ML IV (12:17)
[2025-05-05 12:29] LABS: Mucous, Urine 0 SEEN /hpf (<or=2+); Red Blood Cells-Urine 0 SEEN /hpf (0-5); Squamous Epithelial Cells - UA 0 SEEN /hpf (5-10)
[2025-05-05 12:34] LABS: Color, Urine Yellow (Yellow); Glucose, Dipstick Normal (Normal); Ketone-Dipstick Negative (Negative); Leukocyte Esterase-Dipstick Negative /ul (Negative); Nitrite-Dipstick Negative (Negative); Occult Blood-Urine Negative /ul (Negative); Protein-Dipstick Negative (Negative); Specific Gravity, Urine 1.015 (1.002-1.030); Urine Bilirubin Dipstick Negative (Negative)
[2025-05-05 12:52] LABS: Anion Gap 11 (5-15); BUN 12 mg/dL (4-19); BUN/Creat Ratio 17.4 RATIO (10-20); Calcium,Total 9.6 mg/dL (7.6-11.0); Carbon Dioxide 25.1 mmol/L (21.0-32.0); Chloride 106 mmol/L (98-108); Estimated Creatinine Clearance 91.05 ml/min (50-250); Glucose 97 mg/dL (70-99); Potassium 3.7 mmol/L (3.3-5.1)
[2025-05-05 13:05] VITALS: BP 147/83; PULSE 74; RESP 16; O2SAT 98
[2025-05-05 14:40] VITALS: BP 147/83; PULSE 74; RESP 16; TEMP 36.6; O2SAT 98
== END 2025-05-05 14:41 | disposition home or self-care (01) ==
PROVIDERS: Emergency Provider Emergency Medicine; PCP Family Medicine; Visit Provider Emergency Medicine
DX: M54.50 Low back pain, unspecified (principal); M62.830 Muscle spasm of back; R10.9 Unspecified abdominal pain; I10 Essential (primary) hypertension; Z98.1 Arthrodesis status; K21.9 Gastro-esophageal reflux disease without esophagitis; J45.909 Unspecified asthma, uncomplicated
CPT/HCPCS: 74176; 80048; 81001; 85025; 96361; 96374; 99284; A4216; J2405

== ENCOUNTER → 2025-05-08 | Outpatient (CLI) | payer MEDICARE, MEDICAID, SELFPAY ==
--- NOTE | 2025-05-08 08:44 | MRI_ITS ---
PROCEDURE: SPINE LUMBAR (ROUTINE) 05/08/2025 REASON FOR EXAM: LOW LUMBAR PAIN TECHNIQUE: Procedure Code: MRISPL Modality: MR Procedure: SPINE LUMBAR (ROUTINE) COMPARISON: MRI lumbar spine 02/13/2013 FINDINGS: Vertebrae: Preserved in height and signal. Status post posterior fusion L1 through L5. Alignment: Anterolisthesis L4 on L5 by 2 mm. Conus Medullaris: Unremarkable. T12-L1: Disc bulge. Facet joint arthropathy. Ligamentum flavum hypertrophy. Severe canal stenosis with mass-effect compression upon the cauda equina. However, improvement in the severe canal stenosis which now measures 5 mm, previously measured 5 mm on MRI 02/13/2023. Facet joint arthropathy. Severe bilateral foramina stenosis. L1-2: Disc bulge. Disc desiccation. Facet joint arthropathy. Facet joint arthropathy. Moderate bilateral foramina stenosis. Mild canal stenosis. L2-3: Disc bulge. Facet arthropathy. Mild inferior bilateral foramina stenosis. Status post laminectomies. L3-4: Disc bulge. Disc desiccation. Status post laminectomies. No foramina stenosis. L4-5: Disc bulge. Facet joint arthropathy. Mild inferior bilateral foramina stenosis. No status post laminectomies. L5-S1: Disc bulge. Facet joint arthropathy. No significant foraminal or canal stenosis. Sacrum: Unremarkable. MRI/Spine Lumbar (Routine) IMPRESSION: Persistent severe canal stenosis at T12-L1 with improvement and mass-effect upo n the conus medullaris compared to MRI 02/13/2023. Postsurgical changes as detailed without significant additional foraminal or ca nal stenosis. Reading Location: [id number]
== END | disposition home or self-care (01) ==
LOC: MRI 08:26
PROVIDERS: PCP Family Medicine; Referring Provider Nurse Practitioner Family; Visit Provider Nurse Practitioner Family
DX: M62.830 Muscle spasm of back (principal); M46.1 Sacroiliitis, not elsewhere classified; Z98.1 Arthrodesis status
CPT/HCPCS: 72148